=== PATIENT | female | born 1970 | race Caucasian/White ===

== ENCOUNTER 2022-10-19 11:15 | Inpatient (IN) | payer OTHER, SELFPAY ==
[2022-10-19] VITALS (8 sets, daily range): BP systolic 109–134; BP diastolic 54–73; PULSE 61–95; RESP 14–22; TEMP 36.6–37.1; O2SAT 91–100; BMI 24.0; BMI 23.3
--- NOTE | 2022-10-19 11:34 | ED.ABDPAIN1 ---
HPI - Abdominal Pain General Chief Complaint: Abdominal Pain Stated Complaint: NAUSEA/VOMITTING CHEST TIGHTNESS Time Seen by Provider: 10/19/22 11:34 Source: patient Mode of arrival: Wheelchair History of Present Illness HPI narrative: Patient presents to emergency department complaining of nausea, vomiting for 2 days. She states she is unable to keep anything down. She denies any hematemesis, melena, hematochezia. She states she had one loose stool yesterday. She complains of diffuse lower abdominal pain. She denies any vaginal bleeding, discharge. She denies any hematuria, dysuria. She states she was recently hospitalized with respiratory failure and had an appendectomy. She was ultimately diagnosed with diverticulitis. He denies any fever, or chills. She denies any cough, chest pain, shortness of breath. She does not have any antiemetics at home. She denies any dizziness, or headache. Related Data Home Medications Medication Instructions Recorded Confirmed apixaban 5 mg tablet (Eliquis) 5 mg PO Q12H 10/19/22 10/19/22 atorvastatin 40 mg tablet 40 mg PO .at night 10/19/22 10/19/22 citalopram 20 mg tablet 10 mg PO QDAY 10/19/22 10/19/22 furosemide 20 mg tablet 20 mg PO DAILY 10/19/22 10/19/22 losartan 100 1 tab PO DAILY 10/19/22 10/19/22 mg-hydrochlorothiazide 12.5 mg tablet methimazole 5 mg tablet 5 mg PO .COMPLEX 10/19/22 10/19/22 metoprolol tartrate 100 mg tablet 100 mg PO Q12H 10/19/22 10/19/22 metoprolol tartrate 25 mg tablet 25 mg PO Q12H 10/19/22 10/19/22 mirtazapine 15 mg tablet 15 mg PO .qhs PRN insomnia 10/19/22 10/19/22 potassium chloride 20 mEq 20 meq PO TID 10/19/22 10/19/22 tablet,extended release(part/cryst) (Klor-Con M) Allergies Allergy/AdvReac Type Severity Reaction Status Date / Time No Known Drug Allergies Allergy Verified 10/19/22 11:32 Review of Systems ROS Status of ROS 10 or more systems reviewed and unremarkable except as noted in history and below PFSH PFSH Medical History (Updated 10/19/22 @ 15:48 by Kerri Perez MD) Surgical History (Updated 10/19/22 @ 15:32 by Shelley Mejía, RN) Family History (Updated 10/19/22 @ 15:34 by Shelley Mejía RN) Father Family history of stroke Family history of myocardial infarction Family history of hypertension Mother Family history of hypertension Family history of diabetes mellitus Family history of cancer Family history of COPD (chronic obstructive pulmonary disease) Grandmother Family history of cancer Social History (Updated 10/19/22 @ 15:38 by Shelley Mejía RN) Within the past year, how often did you have a drink containing alcohol: monthly or less Within the past year, how many standard drinks containing alcohol did you have on a typical day: 1 or 2 Within the past year, how often did you have six or more drinks on one occasion: never Total score: 0 Score interpretation: A score less than 3 is consistent with normal alcohol consumption. Smoking status: Never smoker Second hand tobacco smoke exposure: Yes Non-prescribed substance use: cannabis (any form) Non-prescribed substance use details: PATIENT STATES SHE USED TO USE THC GUMMIES Previous occupational history: [employer] Known occupational exposures/hazards: No Highest level of school completed/degree received: GED or equivalent Are you now , , , , never or living with a partner: In a typical week, how many times do you talk on the telephone with family, friends, or neighbors: twice per week How often do you get together with friends or relatives: once per week How often do you attend catholic or druze services: never Do you belong to any clubs or organizations such as catholic groups unions, fraternal or athletic groups, or school groups: no Total score: 1 Score interpretation: A score of less than or equal to 1 indicates the most socially isolated. Little interest or pleasure in doing things: not at all Feeling down, depressed, or hopeless: not at all Feel stressed/tense/nervous/anxious/difficulty sleeping: very much Life stressors: financial matters Do you think of yourself as: straight/heterosexual Gender Identity: female Exam Narrative Exam Narrative: Nurses notes and vital signs reviewed and patient is not hypoxic. General: Nontoxic, Well-appearing and in no apparent distress. Skin: Warm, dry, no pallor noted. No Rash Head: Normocephalic, atraumatic. Neck: Supple, non-tender. Eye: Pupils are equal, round and EOMI. No scleral icterus. Ears, Nose, Mouth, and Throat: TM clear, no posterior oropharynx erythema or nasal mucosal hypertrophy, uvula is mid-line Oral mucosa is moist Cardiovascular: Regular Rate and Rhythm without murmur, gallop or rub. Respiratory: No accessory muscle use or respiratory distress. Lungs are clear to auscultation, no wheezing, rales or rhonchi Chest Wall: no tenderness Back: No midline thoracic or lumbar vertebral tenderness. No CVA tenderness Musculoskeletal: normal ROM, no calf or popliteal tenderness, no lower extremity edema/swelling GI: Abdomen is soft, non-distended. Normal bowel sounds. No masses appreciated. mild llq tenderness to palpation. No rebound, guarding, or rigidity noted. Neurological: A&O x4. No cranial nerve dysfunction observed. No truncal ataxia. Moves all extremities. Sensation intact. Psychiatric: Cooperative and interactive. Normal mood and affect. Constitutional Vital Signs - 24 hr 10/19/22 11:24 10/19/22 12:11 10/19/22 14:20 Temperature 98 F 98.7 F Pulse Rate Pulse Rate [Monitor] 75 63 Respiratory Rate 22 15 14 Blood Pressure [Left Arm] 134/73 H 109/54 L Pulse Oximetry 96 96 100 Oxygen Delivery Method Room Air Room Air Room Air 10/19/22 15:03 10/19/22 15:00 Temperature 98.3 F 98.7 F Pulse Rate 61 Pulse Rate [Monitor] 63 Respiratory Rate 18 14 Blood Pressure [Left Arm] 124/72 H 109/54 L Pulse Oximetry 97 100 Oxygen Delivery Method Room Air Room Air Course Vital Signs Vital signs: Vital Signs Temperature 98 F 10/19/22 11:24 Pulse Rate 75 10/19/22 11:24 Respiratory Rate 22 10/19/22 11:24 Blood Pressure 134/73 H 10/19/22 11:24 Pulse Oximetry 96 10/19/22 11:24 Oxygen Delivery Method Room Air 10/19/22 11:24 Temperature 98.0 F 10/20/22 06:02 Pulse Rate 95 H 10/19/22 20:00 Respiratory Rate 16 10/20/22 06:02 Blood Pressure 102/64 10/20/22 06:02 Pulse Oximetry 96 10/20/22 06:02 Oxygen Delivery Method Room Air 10/20/22 04:31 MDM - Abdominal Pain MDM Narrative Medical decision making narrative: Patient had IV established given a liter of fluids and 4 mg of Zofran IV. Labs studies were ordered. Awaiting CT scan abdomen and pelvis. This patient. Patient started on Zosyn. She will be arms since she hasn't lactic acidosis. She was discussed with Dr. Caro for admission. Differential Diagnosis Differential diagnosis: Likely abdominal pain, acute appendicitis, calculus of kidney, constipation and diverticulitis Medical Records Attestation: I reviewed the patient's medical records. Lab Data Attestation: I reviewed the patient's lab results. Labs: Lab Results 10/19/22 10/19/22 Range/Units 12:26 13:35 WBC 11.8 H (4.0-11.0) 10^3/uL RBC 5.97 H (4.20-5.40) 10^6/uL Hgb 14.8 (12.0-16.0) g/dL Hct 44.8 (36.0-48.0) % MCV 75.0 L (81.0-99.0) fL MCH 24.8 L (26.7-34.0) pg MCHC 33.0 (29.9-35.2) g/dL RDW 16.8 H (11.0-15.0) % Plt Count 806 H (150-450) 10^3/uL MPV 9.8 (9.5-13.5) fL Neut % (Auto) 74.2 (43.0-75.0) % Lymph % (Auto) 22.2 (20.5-60.0) % Robertson % (Auto) 2.8 (1.7-12.0) % Eos % (Auto) 0.2 L (0.9-7.0) % Baso % (Auto) 0.3 (0.2-2.0) % Neut # (Auto) 8.8 H (1.4-6.5) 10^3/uL Lymph # (Auto) 2.6 (1.2-3.8) 10^3/uL Robertson # (Auto) 0.3 (0.3-0.8) 10^3/uL Eos # (Auto) 0.0 (0.0-0.7) 10^3/uL Baso # (Auto) 0.0 (0.0-0.1) 10^3/uL Abs Immat Gran (auto) 0.04 H (0.00-0.03) 10^3/uL Imm/Tot Granulo (auto) 0.3 (0.0-0.5) % Sodium 130 L (136-145) mmol/L Potassium 5.2 H (3.5-5.1) mmol/L Chloride 96 L (98-107) mmol/L Carbon Dioxide 20.6 L (21.0-32.0) mmol/L Anion Gap 18.6 BUN 44.0 H (7.0-18.0) mg/dL Creatinine 1.32 H (0.55-1.02) mg/dL Est GFR ( Amer) 51 L (>=60) Est GFR (Non-Af Amer) 42 L (>=60) BUN/Creatinine Ratio 33.3 Glucose 161 H (74-106) mg/dL Lactate 2.7 H* (0.4-2.0) mmol/L Calcium 10.3 H (8.5-10.1) mg/dL Total Bilirubin 0.7 (0.2-1.0) mg/dL AST 14 L (15-37) U/L ALT 31 (14-59) U/L Alkaline Phosphatase 206 H (46-116) U/L Total Protein 8.5 H (6.4-8.2) g/dL Albumin 4.3 (3.4-5.0) g/dL Globulin 4.2 g/dL Albumin/Globulin Ratio 1.0 Lipase 448.0 H (73.0-393.0) U/L Urine Color Lt. yellow (YELLOW) Urine Clarity Clear (CLEAR) Urine pH 7.0 (5.0-9.0) Ur Specific [place] <=1.005 A (1.005-1.025) Urine Protein Negative (NEG/TRACE) mg/dL Urine Glucose (UA) Negative (NEGATIVE) mg/dL Urine Ketones Negative (NEGATIVE) mg/dL Urine Occult Blood Negative (NEGATIVE) Urine Nitrite Negative (NEGATIVE) Urine Bilirubin Negative (NEGATIVE) Urine Urobilinogen 0.2 (0.2-1.0) EU/dL Ur Leukocyte Esterase Negative (NEGATIVE) Imaging Data CT scan - abdomen: Radiologist's impression: Patient Name: MARINA MIRZA MRN: [id number] date: 1970 Sex: F Assigned Patient Location: ER Current Patient Location: Accession/Order Number: [id number] Exam Date: 10/19/2022 12:55 Report Date: 10/19/2022 13:37 At the request of: KERRI PEREZ Procedure: CT abdomen pelvis w con EXAMINATION: CT abdomen pelvis w con HISTORY: pain ; abdominal pain and nausea COMPARISON: CT abdomen pelvis 10/06/2022 TECHNIQUE: Axial, Coronal, and Sagittal images were obtained without and/or with IV contrast as indicated by examination type. Dose reduction techniques were achieved by using automated exposure control and/or adjustment of mA and/or kV according to patient size and/or use of iterative reconstruction technique. FINDINGS: LUNG BASES: No visible pulmonary or pleural disease. LIVER: No enlargement, atrophy, suspicious density, or significant focal lesion. BILIARY: No dilatation or calcification. PANCREAS: No lesion, fluid collection, or abnormal duct dilatation. SPLEEN: No enlargement or focal lesion. ADRENALS: No mass or enlargement. KIDNEYS: No mass, obstruction, or calcification. BOWEL/MESENTERY: Numerous diverticula throughout length of colon. Mild haziness adjacent the cecum. No free air or free fluid. Unremarkable small bowel and stomach. AORTA/VASCULAR: No aneurysm or dissection. RETROPERITONEUM: No mass or adenopathy. LYMPH NODES: No adenopathy. URINARY BLADDER: No visible focal wall thickening, lesion, or calculus. PELVIC ORGANS: No visible mass. Pelvic organs appropriate for patient age. ABDOMINAL WALL: No mass or hernia. BONES: No bony lesion or fracture. OTHER: Negative. IMPRESSION: 1.Suspect mild acute diverticulitis involving the cecum. There are numerous diverticula throughout the entire length of the colon. No obstruction. Electronically authenticated by: THADDEUS LO Date: 10/19/2022 13:37 Discharge Plan Discharge Chief Complaint: Abdominal Pain Clinical Impression: Diverticulitis, Nausea & vomiting Patient Disposition: Admitted as Observation Time of Disposition Decision: 14:30 Condition: Good Discharge Date/Time: 10/19/22 15:00
--- NOTE | 2022-10-19 12:17 | CT_ITS ---
[address] [address] Patient Name: MARINA MIRZA MRN: [id number] date: 1970 Sex: F Assigned Patient Location: ER Current Patient Location: ER Accession/Order Number: [id number] Exam Date: 10/19/2022 12:55 Report Date: 10/19/2022 13:37 At the request of: KERRI GALEANO Procedure: CT abdomen pelvis w con EXAMINATION: CT abdomen pelvis w con HISTORY: pain ; abdominal pain and nausea COMPARISON: CT abdomen pelvis 10/06/2022 TECHNIQUE: Axial, Coronal, and Sagittal images were obtained without and/or with IV contrast as indicated by examination type. Dose reduction techniques were achieved by using automated exposure control and/or adjustment of mA and/or kV according to patient size and/or use of iterative reconstruction technique. FINDINGS: LUNG BASES: No visible pulmonary or pleural disease. LIVER: No enlargement, atrophy, suspicious density, or significant focal lesion. BILIARY: No dilatation or calcification. PANCREAS: No lesion, fluid collection, or abnormal duct dilatation. SPLEEN: No enlargement or focal lesion. ADRENALS: No mass or enlargement. KIDNEYS: No mass, obstruction, or calcification. BOWEL/MESENTERY: Numerous diverticula throughout length of colon. Mild haziness adjacent the cecum. No free air or free fluid. Unremarkable small bowel and stomach. AORTA/VASCULAR: No aneurysm or dissection. RETROPERITONEUM: No mass or adenopathy. LYMPH NODES: No adenopathy. URINARY BLADDER: No visible focal wall thickening, lesion, or calculus. PELVIC ORGANS: No visible mass. Pelvic organs appropriate for patient age. ABDOMINAL WALL: No mass or hernia. BONES: No bony lesion or fracture. OTHER: Negative. IMPRESSION: 1.Suspect mild acute diverticulitis involving the cecum. There are numerous diverticula throughout the entire length of the colon. No obstruction. Electronically authenticated by: THADDEUS LO Date: 10/19/2022 13:37
[2022-10-19] MEDS: 0.9 % SODIUM CHLORIDE 1,000 ML 999 ML IV (12:34)
[2022-10-19] MEDS: ONDANSETRON PF 4 MG/2 ML VIAL IV (12:35)
[2022-10-19 12:51] LABS: Basophils Percent Auto 0.3 % (0.2-2.0); Eosinophils Percent Auto 0.2 % (0.9-7.0); Hematocrit 44.8 % (36.0-48.0); Hemoglobin 14.8 g/dL (12.0-16.0); Immature Granulocytes Abs Auto 0.04 10^3/uL (0.00-0.03); Immature Granulocytes Pct Auto 0.3 % (0.0-0.5); Lymphocytes Absolute Auto 2.6 10^3/uL (1.2-3.8); Lymphocytes Percent Auto 22.2 % (20.5-60.0); Mean Corpuscular Hemoglobin 24.8 pg (26.7-34.0); Mean Platelet Volume 9.8 fL (9.5-13.5); Monocytes Absolute Auto 0.3 10^3/uL (0.3-0.8); Monocytes Percent Auto 2.8 % (1.7-12.0); Neutrophils Absolute Auto 8.8 10^3/uL (1.4-6.5); Neutrophils Percent Auto 74.2 % (43.0-75.0); Platelet Count 806 10^3/uL (150-450); Red Blood Count 5.97 10^6/uL (4.20-5.40); Red Cell Distribution Width 16.8 % (11.0-15.0); White Blood Count 11.8 10^3/uL (4.0-11.0)
[2022-10-19 13:36] LABS: Lactate/Lactic Acid 2.7 mmol/L (0.4-2.0)
[2022-10-19 13:37] LABS: Sodium 130 mmol/L (136-145)
[2022-10-19 13:38] LABS: Anion Gap 18.6; BUN Creatinine Ratio 33.3; Carbon Dioxide 20.6 mmol/L (21.0-32.0); Chloride 96 mmol/L (98-107); Estimated GFR (African America 51 (>=60); Estimated GFR (Non-African Ame 42 (>=60); Glucose 161 mg/dL (74-106); Potassium 5.2 mmol/L (3.5-5.1)
[2022-10-19 13:39] LABS: Alanine Aminotransferase 31 U/L (14-59); Alkaline Phosphatase 206 U/L (46-116); Aspartate Amino Transferase 14 U/L (15-37); Bilirubin Total 0.7 mg/dL (0.2-1.0); Calcium 10.3 mg/dL (8.5-10.1)
[2022-10-19 13:40] LABS: Albumin Level 4.3 g/dL (3.4-5.0); Globulin 4.2 g/dL; Total Protein 8.5 g/dL (6.4-8.2)
[2022-10-19] MEDS: PIPERACILLIN SODIUM/TAZOBACTAM 4.5 GM in 0.9 % SODIUM CHLORIDE 50 ML IV (14:20)
[2022-10-19 14:29] LABS: Bilirubin Urine NEGATIVE (NEGATIVE); Blood Urine NEGATIVE (NEGATIVE); Clarity Urine CLEAR (CLEAR); Color Urine LT. YELLOW (YELLOW); Glucose Urine UA NEGATIVE (NEGATIVE); Ketones Urine NEGATIVE (NEGATIVE); Leukocyte Esterase Urine NEGATIVE (NEGATIVE); Nitrite Urine NEGATIVE (NEGATIVE); Protein Urine NEGATIVE (NEG/TRACE); Specific Gravity Urine <=1.005 (1.005-1.025); Urobilinogen Urine 0.2 EU/dL (0.2-1.0)
[2022-10-19 15:27] LABS: Urine Microscopic Indicated NO
[2022-10-19] MEDS: LACTATED RINGER'S SOLUTION 1,000 ML 125 ML IV (18:11)
[2022-10-19 18:16] LABS: Amylase 121 U/L (25-115)
[2022-10-19 18:17] LABS: Erythrocyte Sedimentation Rate 17 mm/hr (<=30)
[2022-10-19 18:18] LABS: Lactate/Lactic Acid 1.1 mmol/L (0.4-2.0)
[2022-10-19] MEDS: PANTOPRAZOLE SODIUM 40 MG VIAL IV (18:54)
[2022-10-19] MEDS: CIPROFLOXACIN IN 5 % DEXTROSE 400 MG/200 ML PIGGYBACK 100 MG IV (21:14)
[2022-10-19] MEDS: PIPERACILLIN SODIUM/TAZOBACTAM 3.375 GM in 0.9 % SODIUM CHLORIDE 50 ML IV (21:15)
[2022-10-20] VITALS (7 sets, daily range): BP systolic 96–128; BP diastolic 59–73; PULSE 68–109; RESP 14–18; TEMP 36.7–36.9; O2SAT 94–98; BMI 23.2
[2022-10-20] MEDS: LACTATED RINGER'S SOLUTION 1,000 ML 125 ML IV (03:50)
[2022-10-20 04:50] LABS: Basophils Percent Auto 0.3 % (0.2-2.0); Eosinophils Absolute Auto 0.1 10^3/uL (0.0-0.7); Eosinophils Percent Auto 1.1 % (0.9-7.0); Hematocrit 38.6 % (36.0-48.0); Hemoglobin 11.7 g/dL (12.0-16.0); Immature Granulocytes Abs Auto 0.04 10^3/uL (0.00-0.03); Immature Granulocytes Pct Auto 0.3 % (0.0-0.5); Lymphocytes Absolute Auto 3.1 10^3/uL (1.2-3.8); Lymphocytes Percent Auto 26.6 % (20.5-60.0); Mean Corpuscular HGB Conc 30.3 g/dL (29.9-35.2); Mean Corpuscular Volume 82.5 fL (81.0-99.0); Mean Platelet Volume 9.6 fL (9.5-13.5); Monocytes Absolute Auto 0.7 10^3/uL (0.3-0.8); Monocytes Percent Auto 5.5 % (1.7-12.0); Neutrophils Absolute Auto 7.8 10^3/uL (1.4-6.5); Neutrophils Percent Auto 66.2 % (43.0-75.0); Platelet Count 488 10^3/uL (150-450); Red Blood Count 4.68 10^6/uL (4.20-5.40); Red Cell Distribution Width 16.2 % (11.0-15.0); White Blood Count 11.7 10^3/uL (4.0-11.0)
[2022-10-20 05:10] LABS: Alanine Aminotransferase 24 U/L (14-59); Albumin Globulin Ratio 0.9; Albumin Level 3.2 g/dL (3.4-5.0); Alkaline Phosphatase 158 U/L (46-116); Amylase 94 U/L (25-115); Aspartate Amino Transferase 14 U/L (15-37); BUN Creatinine Ratio 16.3; Bilirubin Total 0.9 mg/dL (0.2-1.0); Calcium 8.9 mg/dL (8.5-10.1); Carbon Dioxide 26.2 mmol/L (21.0-32.0); Chloride 101 mmol/L (98-107); Estimated GFR (African America 52 (>=60); Estimated GFR (Non-African Ame 43 (>=60); Globulin 3.4 g/dL; Glucose 87 mg/dL (74-106); Potassium 3.2 mmol/L (3.5-5.1); Sodium 136 mmol/L (136-145); Total Protein 6.6 g/dL (6.4-8.2)
[2022-10-20] MEDS: PIPERACILLIN SODIUM/TAZOBACTAM 3.375 GM in 0.9 % SODIUM CHLORIDE 50 ML IV ×3 (05:19→23:05)
[2022-10-20 07:31] LABS: Erythrocyte Sedimentation Rate 15 mm/hr (<=30)
--- NOTE | 2022-10-20 09:04 | PM.HP ---
H&P: HPI History of Present Illness Chief complaint: NAUSEA/VOMITTING CHEST TIGHTNESS [facility] Medical History (Updated 10/19/22 @ 15:48 by Hanane Perez MD) Surgical History (Updated 10/19/22 @ 15:32 by Shelley Mejía RN) Family History (Updated 10/19/22 @ 15:34 by Shelley Mejía RN) Father Family history of stroke Family history of myocardial infarction Family history of hypertension Mother Family history of hypertension Family history of diabetes mellitus Family history of cancer Family history of COPD (chronic obstructive pulmonary disease) Grandmother Family history of cancer Social History (Updated 10/19/22 @ 15:38 by Shelley Mejía RN) Within the past year, how often did you have a drink containing alcohol: monthly or less Within the past year, how many standard drinks containing alcohol did you have on a typical day: 1 or 2 Within the past year, how often did you have six or more drinks on one occasion: never Total score: 0 Score interpretation: A score less than 3 is consistent with normal alcohol consumption. Smoking status: Never smoker Second hand tobacco smoke exposure: Yes Non-prescribed substance use: cannabis (any form) Non-prescribed substance use details: PATIENT STATES SHE USED TO USE THC GUMMIES Previous occupational history: [employer] Known occupational exposures/hazards: No Highest level of school completed/degree received: GED or equivalent Are you now , , , , never or living with a partner: In a typical week, how many times do you talk on the telephone with family, friends, or neighbors: twice per week How often do you get together with friends or relatives: once per week How often do you attend zoroastrianism or orthodoxy services: never Do you belong to any clubs or organizations such as zoroastrianism groups unions, fraternal or athletic groups, or school groups: no Total score: 1 Score interpretation: A score of less than or equal to 1 indicates the most socially isolated. Little interest or pleasure in doing things: not at all Feeling down, depressed, or hopeless: not at all Feel stressed/tense/nervous/anxious/difficulty sleeping: very much Life stressors: financial matters Do you think of yourself as: straight/heterosexual Gender Identity: female Meds Home Medications and Allergies Home Medications Medication Instructions Recorded Confirmed Type apixaban 5 mg tablet (Eliquis) 5 mg PO Q12H 10/19/22 10/19/22 History atorvastatin 40 mg tablet 40 mg PO .at night 10/19/22 10/19/22 History citalopram 20 mg tablet 10 mg PO QDAY 10/19/22 10/19/22 History furosemide 20 mg tablet 20 mg PO DAILY 10/19/22 10/19/22 History losartan 100 1 tab PO DAILY 10/19/22 10/19/22 History mg-hydrochlorothiazide 12.5 mg tablet methimazole 5 mg tablet 5 mg PO .COMPLEX 10/19/22 10/19/22 History metoprolol tartrate 100 mg tablet 100 mg PO Q12H 10/19/22 10/19/22 History metoprolol tartrate 25 mg tablet 25 mg PO Q12H 10/19/22 10/19/22 History mirtazapine 15 mg tablet 15 mg PO .qhs PRN insomnia 10/19/22 10/19/22 History potassium chloride 20 mEq 20 meq PO TID 10/19/22 10/19/22 History tablet,extended release(part/cryst) (Klor-Con M) Allergies Allergy/AdvReac Type Severity Reaction Status Date / Time No Known Drug Allergies Allergy Verified 10/19/22 11:32 Exam Constitutional Vital Signs - 24 hr 10/19/22 11:24 10/19/22 12:11 10/19/22 14:20 Temperature 98 F 98.7 F Pulse Rate Pulse Rate [Monitor] 75 63 Respiratory Rate 22 15 14 Blood Pressure [Left Arm] 134/73 H 109/54 L Pulse Oximetry 96 96 100 Oxygen Delivery Method Room Air Room Air Room Air 10/19/22 15:03 10/19/22 15:00 10/19/22 19:28 Temperature 98.3 F 98.7 F Pulse Rate 61 Pulse Rate [Monitor] 63 Respiratory Rate 18 14 Blood Pressure [Left Arm] 124/72 H 109/54 L Pulse Oximetry 97 100 98 Oxygen Delivery Method Room Air Room Air Room Air 10/19/22 20:00 10/19/22 20:46 10/20/22 04:31 Temperature 98.4 F 98.0 F Pulse Rate 95 H Pulse Rate [Monitor] Respiratory Rate 18 18 Blood Pressure [Left Arm] 121/69 H 109/57 L Pulse Oximetry 91 L 94 L Oxygen Delivery Method Room Air Room Air 10/20/22 06:02 Temperature 98.0 F Pulse Rate Pulse Rate [Monitor] Respiratory Rate 16 Blood Pressure [Left Arm] 102/64 Pulse Oximetry 96 Oxygen Delivery Method Results Labs Labs: Short CBC 10/19/22 10/20/22 Range/Units 12:26 04:01 WBC 11.8 H 11.7 H (4.0-11.0) 10^3/uL Hgb 14.8 11.7 L (12.0-16.0) g/dL Hct 44.8 38.6 (36.0-48.0) % Plt Count 806 H 488 H (150-450) 10^3/uL BMP 10/19/22 10/20/22 12:26 04:01 Sodium 130 L 136 Potassium 5.2 H 3.2 L Chloride 96 L 101 Carbon Dioxide 20.6 L 26.2 BUN 44.0 H 21.0 H Creatinine 1.32 H 1.29 H Glucose 161 H 87 Calcium 10.3 H 8.9 Liver Function 10/19/22 10/20/22 Range/Units 12:26 04:01 Total Bilirubin 0.7 0.9 (0.2-1.0) mg/dL AST 14 L 14 L (15-37) U/L ALT 31 24 (14-59) U/L Alkaline Phosphatase 206 H 158 H (46-116) U/L Albumin 4.3 3.2 L (3.4-5.0) g/dL Urine 10/19/22 Range/Units 13:35 Urine Color Lt. yellow (YELLOW) Urine Clarity Clear (CLEAR) Urine pH 7.0 (5.0-9.0) Ur Specific [place] <=1.005 A (1.005-1.025) Urine Protein Negative (NEG/TRACE) mg/dL Urine Glucose (UA) Negative (NEGATIVE) mg/dL
[2022-10-20] MEDS: APIXABAN 5 MG TABLET PO ×2 (09:38→21:54)
[2022-10-20] MEDS: CIPROFLOXACIN IN 5 % DEXTROSE 400 MG/200 ML PIGGYBACK 100 MG IV ×2 (09:38→21:49)
[2022-10-20] MEDS: METHIMAZOLE 5 MG TABLET PO (09:38)
--- NOTE | 2022-10-20 09:40 | CM.NOTE ---
Rounds made with Dr. Caro. No plan for discharge today. Shahida states she is independent at home with family living with her. No assistive devices used.
[2022-10-20 10:24] LABS: Basophils Percent Auto 0.2 % (0.2-2.0); Eosinophils Absolute Auto 0.1 10^3/uL (0.0-0.7); Eosinophils Percent Auto 0.8 % (0.9-7.0); Hematocrit 37.2 % (36.0-48.0); Hemoglobin 11.7 g/dL (12.0-16.0); Immature Granulocytes Abs Auto 0.04 10^3/uL (0.00-0.03); Immature Granulocytes Pct Auto 0.4 % (0.0-0.5); Lymphocytes Absolute Auto 1.4 10^3/uL (1.2-3.8); Lymphocytes Percent Auto 13.9 % (20.5-60.0); Mean Corpuscular HGB Conc 31.5 g/dL (29.9-35.2); Mean Corpuscular Hemoglobin 25.1 pg (26.7-34.0); Mean Corpuscular Volume 79.8 fL (81.0-99.0); Mean Platelet Volume 9.7 fL (9.5-13.5); Monocytes Absolute Auto 0.4 10^3/uL (0.3-0.8); Neutrophils Absolute Auto 7.9 10^3/uL (1.4-6.5); Neutrophils Percent Auto 80.7 % (43.0-75.0); Platelet Count 461 10^3/uL (150-450); Red Blood Count 4.66 10^6/uL (4.20-5.40); Red Cell Distribution Width 16.4 % (11.0-15.0); White Blood Count 9.7 10^3/uL (4.0-11.0)
[2022-10-20 10:32] LABS: BUN Creatinine Ratio 14.5; Calcium 8.9 mg/dL (8.5-10.1); Carbon Dioxide 23.7 mmol/L (21.0-32.0); Chloride 100 mmol/L (98-107); Estimated GFR (African America 55 (>=60); Estimated GFR (Non-African Ame 45 (>=60); Glucose 191 mg/dL (74-106); Potassium 3.7 mmol/L (3.5-5.1); Sodium 133 mmol/L (136-145)
--- NOTE | 2022-10-20 12:39 | DIETREC ---
Nutrition Recommendations: 1. Change to Low Fiber Diet. Reviewed with
[2022-10-20] MEDS: METOPROLOL TARTRATE 100 MG TABLET PO (15:00)
--- NOTE | 2022-10-20 17:43 | P.HP_ITS ---
H&P: HPI History of Present Illness Chief complaint: NAUSEA/VOMITTING CHEST TIGHTNESS Narrative: Patient tented to the emergency with increasing nausea vomiting. CT scan done showed acute cecal diverticulitis, with leukocytosis she is admitted for IV therapy. She had a recent appendectomy as well. That was approximately 2 months ago. [facility] Medical History (Updated 10/19/22 @ 15:48 by Hanane Perez MD) Surgical History (Updated 10/19/22 @ 15:32 by Shelley Mejía RN) Family History (Updated 10/19/22 @ 15:34 by Shelley Mejía RN) Father Family history of stroke Family history of myocardial infarction Family history of hypertension Mother Family history of hypertension Family history of diabetes mellitus Family history of cancer Family history of COPD (chronic obstructive pulmonary disease) Grandmother Family history of cancer Social History (Updated 10/19/22 @ 15:38 by Shelley Mejía RN) Within the past year, how often did you have a drink containing alcohol: monthly or less Within the past year, how many standard drinks containing alcohol did you have on a typical day: 1 or 2 Within the past year, how often did you have six or more drinks on one occasion: never Total score: 0 Score interpretation: A score less than 3 is consistent with normal alcohol consumption. Smoking status: Never smoker Second hand tobacco smoke exposure: Yes Non-prescribed substance use: cannabis (any form) Non-prescribed substance use details: PATIENT STATES SHE USED TO USE THC GUMMIES Previous occupational history: [employer] Known occupational exposures/hazards: No Highest level of school completed/degree received: GED or equivalent Are you now , , , , never or living with a partner: In a typical week, how many times do you talk on the telephone with family, friends, or neighbors: twice per week How often do you get together with friends or relatives: once per week How often do you attend congregation or mormon services: never Do you belong to any clubs or organizations such as congregation groups unions, fraternal or athletic groups, or school groups: no Total score: 1 Score interpretation: A score of less than or equal to 1 indicates the most socially isolated. Little interest or pleasure in doing things: not at all Feeling down, depressed, or hopeless: not at all Feel stressed/tense/nervous/anxious/difficulty sleeping: very much Life stressors: financial matters Do you think of yourself as: straight/heterosexual Gender Identity: female Meds Home Medications and Allergies Home Medications Medication Instructions Recorded Confirmed Type apixaban 5 mg tablet (Eliquis) 5 mg PO Q12H 10/19/22 10/19/22 History atorvastatin 40 mg tablet 40 mg PO .at night 10/19/22 10/19/22 History citalopram 20 mg tablet 10 mg PO QDAY 10/19/22 10/19/22 History furosemide 20 mg tablet 20 mg PO DAILY 10/19/22 10/19/22 History losartan 100 1 tab PO DAILY 10/19/22 10/19/22 History mg-hydrochlorothiazide 12.5 mg tablet methimazole 5 mg tablet 5 mg PO .COMPLEX 10/19/22 10/19/22 History metoprolol tartrate 100 mg tablet 100 mg PO Q12H 10/19/22 10/19/22 History metoprolol tartrate 25 mg tablet 25 mg PO Q12H 10/19/22 10/19/22 History mirtazapine 15 mg tablet 15 mg PO .qhs PRN insomnia 10/19/22 10/19/22 History potassium chloride 20 mEq 20 meq PO TID 10/19/22 10/19/22 History tablet,extended release(part/cryst) (Klor-Con M) Allergies Allergy/AdvReac Type Severity Reaction Status Date / Time No Known Drug Allergies Allergy Verified 10/19/22 11:32 Exam Constitutional Vital Signs - 24 hr 10/19/22 19:28 10/19/22 20:00 10/19/22 20:46 Temperature 98.4 F 98.0 F Pulse Rate 95 H Respiratory Rate 18 18 Blood Pressure [Left Arm] 121/69 H 109/57 L Pulse Oximetry 98 91 L Oxygen Delivery Method Room Air Room Air 10/20/22 04:31 10/20/22 06:02 10/20/22 11:32 Temperature 98.0 F 98.3 F Pulse Rate 109 H Respiratory Rate 16 18 Blood Pressure [Left Arm] 102/64 96/59 L Pulse Oximetry 94 L 96 98 Oxygen Delivery Method Room Air Room Air 10/20/22 12:10 10/20/22 14:55 Temperature 98.3 F Pulse Rate 103 H Respiratory Rate 16 Blood Pressure [Left Arm] 115/70 Pulse Oximetry 97 98 Oxygen Delivery Method Room Air Room Air Chest Common normals: inspection of chest normal Respiratory Common normals: normal respiratory effort, no retractions and no use of accessory muscles Cardio Common normals: no JVD, regular rate and regular rhythm GI Common normals: soft to palpation; tender Palpation: tender (Tender right lower quadrant, possible mild rebound tenderness, no pain in r) Details: RLQ (No pain in the right lower quadrant with palpation of left lower quadrant) Results Labs Labs: Short CBC 10/20/22 10/20/22 Range/Units 04:01 09:55 WBC 11.7 H 9.7 (4.0-11.0) 10^3/uL Hgb 11.7 L 11.7 L (12.0-16.0) g/dL Hct 38.6 37.2 (36.0-48.0) % Plt Count 488 H 461 H (150-450) 10^3/uL BMP 10/20/22 10/20/22 04:01 09:55 Sodium 136 133 L Potassium 3.2 L 3.7 Chloride 101 100 Carbon Dioxide 26.2 23.7 BUN 21.0 H 18.0 Creatinine 1.29 H 1.24 H Glucose 87 191 H Calcium 8.9 8.9 Liver Function 10/20/22 Range/Units 04:01 Total Bilirubin 0.9 (0.2-1.0) mg/dL AST 14 L (15-37) U/L ALT 24 (14-59) U/L Alkaline Phosphatase 158 H (46-116) U/L Albumin 3.2 L (3.4-5.0) g/dL Assessment and Plan Assessment and Plan (1) Diverticulitis: (2) Nausea & vomiting: Plan Sinus tachycardia, leukocytosis, thrombocythemia, hyponatremia, acute kidney injury, elevated amylase and lipase secondary to acute cecal diverticulitis with dehydration-IV fluids, IV antibiotics, hold off on surgical evaluation at this time as patient does feel she is quite a bit better. We will advance diet today. Thrombocythemia likely secondary to the above-overall improved today Hypokalemia-supplement Mild acute pancreatitis likely secondary to the above-levels are normal today. History of CHF in the past-need to watch fluid status closely Hypertension-continue with home medications Hyperthyroidism-continue with home medications With significant findings of acute abdomen-patient needs further IV antibiotics, leukocytosis also persisting, patient needs inpatient statusFor medical treatment lasting more than 2 days
[2022-10-20] MEDS: PANTOPRAZOLE SODIUM 40 MG VIAL IV (18:31)
[2022-10-20] MEDS: POTASSIUM CHLORIDE 10 MEQ ER TABLET 20 MEQ PO (21:53)
[2022-10-21 04:57] LABS: Basophils Percent Auto 0.2 % (0.2-2.0); Eosinophils Absolute Auto 0.1 10^3/uL (0.0-0.7); Eosinophils Percent Auto 1.6 % (0.9-7.0); Hematocrit 37.7 % (36.0-48.0); Hemoglobin 11.7 g/dL (12.0-16.0); Immature Granulocytes Abs Auto 0.02 10^3/uL (0.00-0.03); Immature Granulocytes Pct Auto 0.2 % (0.0-0.5); Lymphocytes Absolute Auto 2.2 10^3/uL (1.2-3.8); Lymphocytes Percent Auto 25.5 % (20.5-60.0); Mean Corpuscular Hemoglobin 25.1 pg (26.7-34.0); Mean Corpuscular Volume 80.9 fL (81.0-99.0); Mean Platelet Volume 10.3 fL (9.5-13.5); Monocytes Absolute Auto 0.7 10^3/uL (0.3-0.8); Monocytes Percent Auto 8.2 % (1.7-12.0); Neutrophils Absolute Auto 5.6 10^3/uL (1.4-6.5); Neutrophils Percent Auto 64.3 % (43.0-75.0); Platelet Count 450 10^3/uL (150-450); Red Blood Count 4.66 10^6/uL (4.20-5.40); Red Cell Distribution Width 16.4 % (11.0-15.0); White Blood Count 8.7 10^3/uL (4.0-11.0)
[2022-10-21 05:25] LABS: Alanine Aminotransferase 24 U/L (14-59); Albumin Globulin Ratio 0.9; Albumin Level 3.2 g/dL (3.4-5.0); Alkaline Phosphatase 147 U/L (46-116); Amylase 107 U/L (25-115); Aspartate Amino Transferase 17 U/L (15-37); BUN Creatinine Ratio 20.6; Bilirubin Total 0.3 mg/dL (0.2-1.0); Calcium 9.1 mg/dL (8.5-10.1); Carbon Dioxide 24.9 mmol/L (21.0-32.0); Chloride 103 mmol/L (98-107); Erythrocyte Sedimentation Rate 27 mm/hr (<=30); Estimated GFR (African America >60 (>=60); Estimated GFR (Non-African Ame 57 (>=60); Globulin 3.5 g/dL; Glucose 165 mg/dL (74-106); Potassium 3.9 mmol/L (3.5-5.1); Sodium 137 mmol/L (136-145); Total Protein 6.7 g/dL (6.4-8.2)
[2022-10-21 06:00] VITALS: BP 136/77; PULSE 82; RESP 18; TEMP 36.7; O2SAT 98
--- NOTE | 2022-10-21 06:15 | US_ITS ---
[address] [address] Patient Name: MARINA MIRZA MRN: [id number] date: 1970 Sex: F Assigned Patient Location: Current Patient Location: Accession/Order Number: [id number] Exam Date: 10/21/2022 07:50 Report Date: 10/21/2022 09:31 At the request of: ANDREINA VANESSA Procedure: US right upper quadrant PROCEDURE: US right upper quadrant, 10/21/2022 7:50 AM EDT CLINICAL INDICATIONS: Pancreatitis, right upper quadrant abdominal pain, diverticulitis, elevated lipase, prior appendectomy, vomiting COMPARISON: CT abdomen and pelvis 10/19/2022 TECHNIQUE: Right quadrant abdominal sonogram FINDINGS: Slight heterogeneous echo pattern of the pancreas is seen. Ductal dilatation is not evident. Peripancreatic fluid collection is not seen. Portions of head and tail segments are obscured. Hepatic assessment is limited given necessity for intercostal imaging. Liver is normal in size. Visualized portal vein patent with antegrade flow. Normal velocity 40 cm/s. Common bile duct 0.3 cm. The gallbladder is normal in size. Gallbladder calculus, wall thickening, or pain in the region is not elicited. Right kidney is normal in morphology. It measures 9.4 x 4.3 x 4.6 cm. No hydronephrosis or shadowing calculus is identified. Focal renal abnormality is not demonstrated. No free fluid. IMPRESSION: 1. Nonspecific heterogeneity of the pancreas. No ductal dilatation or focal abnormality is evident. Portions of head and tail segments obscured. There is no sign of complicated pancreatitis. CT would be more accurate in further characterization. 2. No gallbladder pathology or bile duct dilatation 3. No additional right upper quadrant abdominal pathology Electronically authenticated by: EMILE LYMAN Date: 10/21/2022 09:31
[2022-10-21] MEDS: PIPERACILLIN SODIUM/TAZOBACTAM 3.375 GM in 0.9 % SODIUM CHLORIDE 50 ML IV ×3 (06:55→22:09)
[2022-10-21] MEDS: POTASSIUM CHLORIDE 10 MEQ ER TABLET 20 MEQ PO ×3 (06:56→21:07)
[2022-10-21 07:40] VITALS: BP 112/63; PULSE 76; RESP 16; TEMP 36.5; O2SAT 97
[2022-10-21] MEDS: METHIMAZOLE 5 MG TABLET PO (08:31)
[2022-10-21] MEDS: APIXABAN 5 MG TABLET PO ×2 (08:31→20:50)
[2022-10-21] MEDS: CITALOPRAM HYDROBROMIDE 20 MG TABLET 10 MG PO (08:31)
[2022-10-21] MEDS: METOPROLOL TARTRATE 100 MG TABLET PO ×2 (08:33→18:00)
--- NOTE | 2022-10-21 09:14 | P.PN_ITS ---
Progress Note: Subjective Subjective Interval history: Patient still with some abdominal pain Exam Constitutional Vital Signs - 24 hr 10/20/22 11:32 10/20/22 12:10 10/20/22 14:55 Temperature 98.3 F 98.3 F Pulse Rate 109 H 103 H Respiratory Rate 18 16 Blood Pressure [Left Arm] 96/59 L 115/70 Pulse Oximetry 98 97 98 Oxygen Delivery Method Room Air Room Air Room Air 10/20/22 21:56 10/20/22 21:00 10/21/22 06:00 Temperature 98.4 F 98.1 F Pulse Rate 68 82 Respiratory Rate 18 14 18 Blood Pressure [Left Arm] 128/73 H 136/77 H Pulse Oximetry 96 98 Oxygen Delivery Method Room Air Room Air 10/21/22 07:40 Temperature 97.7 F Pulse Rate 76 Respiratory Rate 16 Blood Pressure [Left Arm] 112/63 Pulse Oximetry 97 Oxygen Delivery Method Room Air Neck & C-Spine Common normals: no JVD Chest Common normals: inspection of chest normal Respiratory Common normals: normal respiratory effort, no retractions and no use of accessory muscles Cardio Common normals: no JVD, regular rate and regular rhythm Rate: regular rate Rhythm: regular rhythm GI Common normals: soft to palpation; tender Palpation: soft, tender (Tender right lower quadrant, possible mild rebound tenderness, no pain in r) Details: RLQ (No pain in the right lower quadrant with palpation of left lower quadrant) and rebound tenderness present Progress Note: Objective Labs Labs: Short CBC 10/20/22 10/21/22 Range/Units 09:55 03:45 WBC 9.7 8.7 (4.0-11.0) 10^3/uL Hgb 11.7 L 11.7 L (12.0-16.0) g/dL Hct 37.2 37.7 (36.0-48.0) % Plt Count 461 H 450 (150-450) 10^3/uL BMP 10/20/22 10/21/22 09:55 03:45 Sodium 133 L 137 Potassium 3.7 3.9 Chloride 100 103 Carbon Dioxide 23.7 24.9 BUN 18.0 21.0 H Creatinine 1.24 H 1.02 Glucose 191 H 165 H Calcium 8.9 9.1 Liver Function 10/21/22 Range/Units 03:45 Total Bilirubin 0.3 (0.2-1.0) mg/dL AST 17 (15-37) U/L ALT 24 (14-59) U/L Alkaline Phosphatase 147 H (46-116) U/L Albumin 3.2 L (3.4-5.0) g/dL Progress Note: A&P Assessment and Plan (1) Diverticulitis: (2) Nausea & vomiting: Plan Sinus tachycardia, leukocytosis, thrombocythemia, hyponatremia, acute kidney injury, elevated amylase and lipase secondary to acute cecal diverticulitis with dehydration-IV fluids, IV antibiotics, with abdominal pain persisting we will check CT scan Thrombocythemia likely secondary to the above-overall improved today Hypokalemia-supplement Mild acute pancreatitis likely secondary to the above-levels are elevated today-check an ultrasound History of CHF in the past-need to watch fluid status closely all Hypertension-continue with home medications Hyperthyroidism-continue with home medications With significant findings of acute abdomen-patient needs further IV antibiotics, leukocytosis also persisting, patient needs inpatient statusFor medical treatment lasting more than 2 days
--- NOTE | 2022-10-21 09:16 | CT_ITS ---
[address] [address] Patient Name: MARINA MIRZA MRN: [id number] date: 1970 Sex: F Assigned Patient Location: [place] Current Patient Location: [place] Accession/Order Number: [id number] Exam Date: 10/21/2022 10:55 Report Date: 10/21/2022 11:36 At the request of: ANDREINA VANESSA Procedure: CT abdomen pelvis w con EXAM: CT abdomen pelvis w con HISTORY: diverticulitis pancreatitis. Nausea, vomiting for 6 days. COMPARISON: 10/19/2022. TECHNIQUE: Axial CT imaging was performed through the abdomen and pelvis with intravenous contrast. Multiplanar reformats were performed. Dose reduction techniques were achieved by using automated exposure control and/or adjustment of mA and/or kV according to patient size and/or use of iterative reconstruction technique. FINDINGS: Lung bases: Lung bases are clear. No pleural effusion. GI upper: Several small duodenal diverticula. Liver: Hepatic steatosis. Normal size and contour. Gallbladder: No significant abnormality. No cholelithiasis. Biliary system: Prominence of the extra hepatic biliary duct. Consider correlation with cholestatic laboratory values as clinically appropriate. Spleen: Normal size. Pancreas: Unremarkable. Adrenal glands: Normal adrenal glands. Kidneys/ureters: Normal contours. No hydronephrosis or ureterolithiasis. No nephrolithiasis. Vessels: No aneurysm. Lymph Nodes: No lymphadenopathy. Small bowel: No wall thickening or dilatation. There is diverticulosis of the distal ileum. Colon: Significant diverticulosis of the colon. There are colonic diverticula of the proximal colon with associated wall thickening and mild stranding of the right lower quadrant, extending into the paracolic gutter, new since 10/19/2022 examination. Enteric contrast which appears fluid consistency is demonstrated throughout the colon. Appendix: Appendectomy. Peritoneal cavity: No free fluid or peritoneum. Lower : Unremarkable. Bones: Degenerative findings without acute bony abnormality. Findings are suggestive of decreased bone density. Soft tissues: No acute finding. Additional findings: None. IMPRESSION: 1. Interval development of inflammation of the right lower quadrant. There is suspected wall thickening associated with several colonic diverticula near the cecum, suspicious for diverticulitis. No evidence of organized fluid collection or pneumoperitoneum. 2. Additional findings as above. Electronically authenticated by: MYCHAL Gomez: 10/21/2022 11:36
--- NOTE | 2022-10-21 10:06 | CM.NOTE ---
Rounds made with Dr. Caro. Checking an Ultrasound of abdomen and potentially a CT abdomen. Shahida verbalizes understanding. No questions offered.
[2022-10-21] MEDS: CIPROFLOXACIN IN 5 % DEXTROSE 400 MG/200 ML PIGGYBACK 200 MG IV (11:31)
[2022-10-21 14:46] VITALS: BP 96/60; PULSE 76; RESP 16; TEMP 36.6; O2SAT 69
[2022-10-21] MEDS: PANTOPRAZOLE SODIUM 40 MG VIAL IV (18:00)
[2022-10-21] MEDS: CIPROFLOXACIN IN 5 % DEXTROSE 400 MG/200 ML PIGGYBACK 50 MG IV (20:50)
[2022-10-21] MEDS: ATORVASTATIN CALCIUM 40 MG TABLET PO (20:50)
[2022-10-21 21:40] VITALS: BP 111/70; PULSE 62; RESP 20; TEMP 36.6; O2SAT 98
[2022-10-21] MEDS: 0.9 % SODIUM CHLORIDE 250 ML 20 ML IV (22:09)
[2022-10-22 06:00] VITALS: BP 152/76; PULSE 63; RESP 22; TEMP 36.6; O2SAT 97
[2022-10-22 06:20] LABS: Basophils Percent Auto 0.4 % (0.2-2.0); Eosinophils Absolute Auto 0.2 10^3/uL (0.0-0.7); Eosinophils Percent Auto 2.3 % (0.9-7.0); Hematocrit 38.7 % (36.0-48.0); Hemoglobin 11.5 g/dL (12.0-16.0); Immature Granulocytes Abs Auto 0.03 10^3/uL (0.00-0.03); Immature Granulocytes Pct Auto 0.4 % (0.0-0.5); Lymphocytes Absolute Auto 2.3 10^3/uL (1.2-3.8); Lymphocytes Percent Auto 27.6 % (20.5-60.0); Mean Corpuscular HGB Conc 29.7 g/dL (29.9-35.2); Mean Corpuscular Hemoglobin 24.8 pg (26.7-34.0); Mean Corpuscular Volume 83.6 fL (81.0-99.0); Mean Platelet Volume 10.1 fL (9.5-13.5); Monocytes Absolute Auto 0.7 10^3/uL (0.3-0.8); Monocytes Percent Auto 8.7 % (1.7-12.0); Neutrophils Absolute Auto 5.1 10^3/uL (1.4-6.5); Neutrophils Percent Auto 60.6 % (43.0-75.0); Platelet Count 389 10^3/uL (150-450); Red Blood Count 4.63 10^6/uL (4.20-5.40); Red Cell Distribution Width 16.7 % (11.0-15.0); White Blood Count 8.4 10^3/uL (4.0-11.0)
[2022-10-22] MEDS: PIPERACILLIN SODIUM/TAZOBACTAM 3.375 GM in 0.9 % SODIUM CHLORIDE 50 ML IV (06:33)
[2022-10-22] MEDS: POTASSIUM CHLORIDE 10 MEQ ER TABLET 20 MEQ PO (06:37)
[2022-10-22 06:51] LABS: Alanine Aminotransferase 24 U/L (14-59); Albumin Globulin Ratio 0.8; Albumin Level 3.3 g/dL (3.4-5.0); Alkaline Phosphatase 137 U/L (46-116); Amylase 105 U/L (25-115); Anion Gap 6.2; Aspartate Amino Transferase 26 U/L (15-37); Bilirubin Total 0.3 mg/dL (0.2-1.0); Calcium 9.5 mg/dL (8.5-10.1); Carbon Dioxide 19.5 mmol/L (21.0-32.0); Chloride 114 mmol/L (98-107); Estimated GFR (African America >60 (>=60); Estimated GFR (Non-African Ame >60 (>=60); Glucose 96 mg/dL (74-106); Potassium 4.7 mmol/L (3.5-5.1); Sodium 135 mmol/L (136-145); Total Protein 7.3 g/dL (6.4-8.2)
[2022-10-22 06:59] LABS: Erythrocyte Sedimentation Rate 37 mm/hr (<=30)
[2022-10-22] MEDS: APIXABAN 5 MG TABLET PO (10:13)
[2022-10-22] MEDS: CITALOPRAM HYDROBROMIDE 20 MG TABLET 10 MG PO (10:13)
[2022-10-22] MEDS: METOPROLOL TARTRATE 100 MG TABLET PO (10:13)
[2022-10-22] MEDS: METHIMAZOLE 5 MG TABLET PO (10:15)
[2022-10-22] MEDS: CIPROFLOXACIN IN 5 % DEXTROSE 400 MG/200 ML PIGGYBACK 200 MG IV (10:15)
[2022-10-22 10:18] VITALS: BP 121/75; PULSE 89
--- NOTE | 2022-10-22 12:27 | PM.DS1 ---
DS: Providers Provider Date of admission: 10/20/22 10:20 Primary care physician: DIVYA ACOSTA MD Attending physician on discharge: Shaikh David Discharging clinician: Shaikh David Anticipated date of discharge: 10/22/22 DS: Diagnosis Discharge Diagnosis (1) Acute diverticulitis: Onset Date: ~10/2022 Assessment and plan: Clinically impproving. Mild abdominal pain. Tolerating oral diet. No nausea or vomiting. Will discharge on Oral Levaquin and Flagyl (2) Pancreatitis, acute: Assessment and plan: Mildly elevated Lipase. Trending down. No epigastric pain, and denies nausea/vomiting. US liver negative for gallstones, CBD dilation. Non alcoholic. Needs repeat Lipase in one week (3) Acute kidney injury: Assessment and plan: Due to pancreatitis. Resolved. DS: Summary Hospital Course Hospital Course: Patient admitted for acute diverticulitis and started on IV fluids, IV ciprofloxacin and flagyl. Her symptoms improved during her hospital stay and she was reporting mild abdominal discomfort today and denies nausea/vomiting or is tolerating oral diet w/o complaints. She was also noted to have mildly elevate Lipase. CT abd showed no concern for pancreatitis. US liver shows no gall bladder. Will need repeat CMP and Lipase in one week with PCP Status at Discharge Functional status at discharge: independent ambulation Overall status at discharge: patient is back to baseline Time Spent with Patient Time attestation: Total time spent providing and/or coordinating discharge services: Time spent: greater than 30 minutes Exam Constitutional Vital Signs - 24 hr 10/21/22 14:46 10/21/22 21:40 10/22/22 06:00 Temperature 97.9 F 98 F 97.8 F Pulse Rate 76 62 63 Respiratory Rate 16 20 22 Blood Pressure [Left Arm] 96/60 111/70 152/76 H Pulse Oximetry 69 L 98 97 Oxygen Delivery Method Room Air Room Air Room Air 10/22/22 10:18 Temperature Pulse Rate 89 Respiratory Rate Blood Pressure [Left Arm] 121/75 H Pulse Oximetry Oxygen Delivery Method Documenting provider has reviewed patient's vital signs: yes Common normals: no apparent distress, oriented x3, no limitations and healthy appearing Exam limitations: altered mental status General appearance: cooperative and well kempt Nutritional appearance: thin Orientation/consciousness: Yes awake, Yes oriented to person, Yes oriented to place and Yes oriented to time HENMT Common normals: normocephalic and head/scalp atraumatic Eye Common normals: PERRL, conjunctivae normal and no scleral icterus Neck & C-Spine Common normals: full ROM Respiratory Common normals: normal respiratory effort Effort & inspection: able to speak in complete sentences Auscultation: clear to auscultation bilaterally Cardio Common normals: no JVD, regular rate, regular rhythm, S1 normal heart sound, S2 normal heart sound and no murmurs GI Common normals: Normal to inspection, nondistended, normoactive bowel sounds present, soft to palpation and no hepatosplenomegaly Palpation: soft Rectal Exam - Female: deferred Common normals: no CVA tenderness Extremity Common normals: normal to inspection and full ROM Neuro Common normals: oriented x3, moves all extremities, no focal motor deficits and no sensory deficits noted Sensorium/orientation: awake, oriented to person, oriented to place and oriented to time Speech: speech normal Gait (neuro): normal gait Psych Common normals: thought process normal, cooperative, affect normal, speech normal, denies homicidal ideation and denies suicidal ideation DS: Data Data Completed and Pending Labs on day of discharge: Labs from last 24 hours 10/22/22 04:15 WBC 8.4 RBC 4.63 Hgb 11.5 L Hct 38.7 MCV 83.6 MCH 24.8 L MCHC 29.7 L RDW 16.7 H Plt Count 389 MPV 10.1 Neut % (Auto) 60.6 Lymph % (Auto) 27.6 [place] % (Auto) 8.7 Eos % (Auto) 2.3 Baso % (Auto) 0.4 Neut # (Auto) 5.1 Lymph # (Auto) 2.3 [place] # (Auto) 0.7 Eos # (Auto) 0.2 Baso # (Auto) 0.0 Abs Immat Gran (auto) 0.03 Imm/Tot Granulo (auto) 0.4 ESR 37 H Sodium 135 L Potassium 4.7 Chloride 114 H Carbon Dioxide 19.5 L Anion Gap 6.2 BUN 16.0 Creatinine 0.89 Est GFR ( Amer) >60 Est GFR (Non-Af Amer) >60 BUN/Creatinine Ratio 18.0 Glucose 96 Calcium 9.5 Total Bilirubin 0.3 AST 26 ALT 24 Alkaline Phosphatase 137 H Total Protein 7.3 Albumin 3.3 L Globulin 4.0 Albumin/Globulin Ratio 0.8 Amylase [address] scan - abdomen: Attestation: I have reviewed the pertinent imaging results. US - abdomen: Attestation: I have reviewed the pertinent imaging results. Discharge Plan Discharge Disposition: Home, Self-Care Condition: Good Plan of Treatment: Follow up with PCP in one week, Finish antibiotics Repeat Lipase and CMP in one week Discharge Medications: New levofloxacin 750 mg Tablet 750 mg PO QD 5 Days Qty: 5 0RF ondansetron 4 mg Tablet,Disintegrating 4 mg sublingual Q6H PRN (Reason: nausea and vomiting) Qty: 10 0RF metronidazole 500 mg tablet 500 mg PO Q8H 5 Days Qty: 15 0RF Continued Eliquis 5 mg tablet 5 mg PO Q12H atorvastatin 40 mg tablet 40 mg PO .at night furosemide 20 mg tablet 20 mg PO DAILY potassium chloride [Klor-Con M20] 20 mEq tablet,ER particles/crystals 20 meq PO TID metoprolol tartrate 100 mg tablet 100 mg PO Q12H metoprolol tartrate 25 mg tablet 25 mg PO Q12H citalopram 20 mg tablet 10 mg PO QDAY methimazole 5 mg tablet 5 mg PO .COMPLEX Rx Instructions: 5 mg orally every day except monday and monday; mirtazapine 15 mg tablet 15 mg PO .qhs PRN (Reason: insomnia) losartan-hydrochlorothiazide 100-12.5 mg tablet 1 tab PO DAILY Activity: resume usual activities as tolerated Diet: other Diet Detail: Soft, low fat Forms: Portal Instructions Referrals: DIVYA ACOSTA MD [Primary Care Provider] - 1 week Follow Up Appointments: PCP in one week Discharge location: Home
== END 2022-10-22 13:04 | disposition home or self-care (01) | DRG 244 ==
LOC: ER 11:26 → MS 15:29
PROVIDERS: Admitting Provider Family Medicine; Emergency Provider Emergency Medicine; PCP Nurse Practitioner Primary Care; Visit Provider Internal Medicine
DX: K57.32 Diverticulitis of large intestine without perforation or abscess without bleeding (principal); E86.0 Dehydration; E87.1 Hypo-osmolality and hyponatremia; K85.90 Acute pancreatitis without necrosis or infection, unspecified; I11.0 Hypertensive heart disease with heart failure; I50.9 Heart failure, unspecified; E05.90 Thyrotoxicosis, unspecified without thyrotoxic crisis or storm; D75.839 Thrombocytosis, unspecified; E87.6 Hypokalemia; N17.9 Acute kidney failure, unspecified; Z79.899 Other long term (current) drug therapy; Z79.01 Long term (current) use of anticoagulants; Z77.22 Contact with and (suspected) exposure to environmental tobacco smoke (acute) (chronic); Z90.49 Acquired absence of other specified parts of digestive tract; Z82.49 Family history of ischemic heart disease and other diseases of the circulatory system; Z83.3 Family history of diabetes mellitus; Z82.5 Family history of asthma and other chronic lower respiratory diseases; Z80.9 Family history of malignant neoplasm, unspecified
CPT/HCPCS: 36415; 74177; 76705; 80048; 80053; 81003; 82150; 83605; 83690; 85025; 85652; 94761; 96361; 96365; 96366; 96367; 96375; 96376; 99285; G0328; G0378; Q9966; Q9967

== ENCOUNTER 2022-10-25 11:02 | Outpatient (OUT) | payer OTHER, SELFPAY ==
[2022-10-25 12:12] LABS: Alanine Aminotransferase 24 U/L (14-59); Albumin Globulin Ratio 0.9; Albumin Level 3.6 g/dL (3.4-5.0); Alkaline Phosphatase 143 U/L (46-116); Anion Gap 12.7; Aspartate Amino Transferase 21 U/L (15-37); BUN Creatinine Ratio 23.9; Bilirubin Total 0.3 mg/dL (0.2-1.0); Calcium 9.7 mg/dL (8.5-10.1); Chloride 103 mmol/L (98-107); Estimated GFR (African America 59 (>=60); Estimated GFR (Non-African Ame 48 (>=60); Globulin 4.2 g/dL; Glucose 140 mg/dL (74-106); Potassium 3.7 mmol/L (3.5-5.1); Sodium 140 mmol/L (136-145); Total Protein 7.8 g/dL (6.4-8.2)
[2022-10-25 17:05] LABS: Magnesium 1.6 mg/dL (1.8-2.4)
== END 2022-10-25 11:03 ==
PROVIDERS: PCP Nurse Practitioner Primary Care; Visit Provider Nurse Practitioner Primary Care
DX: N17.9 Acute kidney failure, unspecified (principal); E83.42 Hypomagnesemia; R79.89 Other specified abnormal findings of blood chemistry
CPT/HCPCS: 36415; 80053; 83735; 83880

== ENCOUNTER 2023-03-15 13:13 | Emergency (ER) | payer OTHER, SELFPAY ==
[2023-03-15 13:19] VITALS: BP 146/43; PULSE 65; RESP 14; TEMP 36.8; O2SAT 99; BMI 21.5
--- NOTE | 2023-03-15 13:43 | XR_ITS ---
The [address] [address] Patient Name: MARINA MIRZA MRN: [id number] date: 1970 Sex: F Assigned Patient Location: ER Current Patient Location: ER Accession/Order Number: [id number] Exam Date: 03/15/2023 14:10 Report Date: 03/15/2023 14:29 At the request of: AMARJIT GONZALEZ Procedure: XR chest 1V EXAM: XR chest 1V at 1416 hours HISTORY: Weakness COMPARISON: 10/09/2022. TECHNIQUE: AP upright portable chest x-ray FINDINGS: The heart is not enlarged and the vasculature is not distended. No acute infiltrate, effusion or pneumothorax is identified. The osseous structures are grossly intact. XR/XR chest 1V IMPRESSION: No acute infiltrate or evidence of cardiac decompensation. The overall appearance of the chest is unchanged. Electronically authenticated by: KENTON MA Date: 03/15/2023 14:29
--- NOTE | 2023-03-15 13:46 | ED_ITS ---
HPI - Abdominal Pain General Chief Complaint: Abdominal Pain Stated Complaint: GENERAL WEAKNESS/ ABDOMINAL PAIN Time Seen by Provider: 03/15/23 13:32 Source: patient Mode of arrival: Wheelchair History of Present Illness HPI narrative: patient is a 52-year-old female to history of congestive heart failure and diverticulitis who presents to the emergency department with continued weakness, abdominal pain and poor appetite. She states she is concerned she may be dehydrated. She was started on antibiotics yesterday empirically by her physician in [place]. She reports right-sided abdominal pain associated with nausea, lack of appetite. She has had no objective fevers or vomiting. She denies diarrhea or urinary symptoms. She was last treated for diverticulitis several months ago. she has not had any new chest pain or shortness of breath. No medications taken prior to arrival other than her new antibiotics. she has had a previous appendectomy. previous documentation from visit earlier this year show that the patient had a postoperative abscess after her appendectomy. Related Data Home Medications Medication Instructions Recorded Confirmed apixaban 5 mg tablet (Eliquis) 5 mg PO Q12H 10/19/22 10/19/22 atorvastatin 40 mg tablet 40 mg PO .at night 10/19/22 10/19/22 citalopram 20 mg tablet 10 mg PO QDAY 10/19/22 10/19/22 furosemide 20 mg tablet 20 mg PO DAILY 10/19/22 10/19/22 losartan 100 1 tab PO DAILY 10/19/22 10/19/22 mg-hydrochlorothiazide 12.5 mg tablet methimazole 5 mg tablet 5 mg PO .COMPLEX 10/19/22 10/19/22 metoprolol tartrate 100 mg tablet 100 mg PO Q12H 10/19/22 10/19/22 metoprolol tartrate 25 mg tablet 25 mg PO Q12H 10/19/22 10/19/22 mirtazapine 15 mg tablet 15 mg PO .qhs PRN insomnia 10/19/22 10/19/22 potassium chloride 20 mEq 20 meq PO TID 10/19/22 10/19/22 tablet,extended release(part/cryst) (Klor-Con M) Previous Rx's Medication Instructions Recorded levofloxacin 750 mg tablet 750 mg PO QD 5 days #5 tabs 10/22/22 metronidazole 500 mg tablet 500 mg PO Q8H 5 days #15 tabs 10/22/22 ondansetron 4 mg disintegrating 4 mg sublingual Q6H PRN nausea and 10/22/22 tablet vomiting #10 tabs hyoscyamine sulfate 0.125 mg 0.125 mg PO Q6H PRN abdominal pain 03/15/23 tablet (Levsin) #12 tabs ondansetron 4 mg disintegrating 4 mg PO Q6H PRN nausea and 03/15/23 tablet vomiting #12 tabs Allergies Allergy/AdvReac Type Severity Reaction Status Date / Time No Known Drug Allergies Allergy Verified 10/19/22 11:32 Review of Systems ROS Constitutional Denies: fever or chills Ears, nose, mouth, and throat Denies: throat pain Cardiovascular Denies: chest pain Respiratory Denies: shortness of breath or cough Gastrointestinal Reports: abdominal pain and nausea; Denies: vomiting or diarrhea Genitourinary Denies: painful urination Musculoskeletal Denies: back pain Integumentary/Breast Denies: rash Neurological Denies: headache Hematologic/Lymphatic Denies: easy bruising PFSH PFSH Medical History (Updated 03/15/23 @ 16:21 by KAVITA Sanchez) Atrial fibrillation ?I48.91 - Unspecified atrial fibrillation (ICD-10) CHF (congestive heart failure) ?I50.9 - Heart failure, unspecified (ICD-10) Diverticulitis ?K57.92 - Diverticulitis of intestine, part unspecified, without perforation or abscess without bleeding (ICD-10) HLD (hyperlipidemia) ?E78.5 - Hyperlipidemia, unspecified (ICD-10) HTN (hypertension) ?I10 - Essential (primary) hypertension (ICD-10) Hyperthyroidism ?E05.90 - Thyrotoxicosis, unspecified without thyrotoxic crisis or storm (ICD-10) Surgical History (Updated 10/19/22 @ 15:32 by Shelley Mejía RN) Hx of appendectomy ?Z90.49 - Acquired absence of other specified parts of digestive tract (ICD- 10) Family History (Updated 10/19/22 @ 15:34 by Shelley Mejía RN) Father Family history of stroke Family history of myocardial infarction Family history of hypertension Mother Family history of hypertension Family history of diabetes mellitus Family history of cancer Family history of COPD (chronic obstructive pulmonary disease) Grandmother Family history of cancer Social History Within the past year, how often did you have a drink containing alcohol: monthly or less Within the past year, how many standard drinks containing alcohol did you have on a typical day: 1 or 2 Within the past year, how often did you have six or more drinks on one occasion: never Total score: 0 Score interpretation: A score less than 3 is consistent with normal alcohol consumption. Smoking status: Never smoker Second hand tobacco smoke exposure: Yes Non-prescribed substance use: cannabis (any form) Non-prescribed substance use details: PATIENT STATES SHE USED TO USE THC GUMMIES Previous occupational history: [employer] Known occupational exposures/hazards: No Highest level of school completed/degree received: GED or equivalent Are you now , , , , never or living with a partner: In a typical week, how many times do you talk on the telephone with family, friends, or neighbors: twice per week How often do you get together with friends or relatives: once per week How often do you attend scientologist or restoration services: never Do you belong to any clubs or organizations such as scientologist groups unions, fraternal or athletic groups, or school groups: no Total score: 1 Score interpretation: A score of less than or equal to 1 indicates the most socially isolated. Little interest or pleasure in doing things: not at all Feeling down, depressed, or hopeless: not at all Feel stressed/tense/nervous/anxious/difficulty sleeping: very much Life stressors: financial matters Do you think of yourself as: straight/heterosexual Gender Identity: female Exam Narrative Exam Narrative: Gen.: Awake, alert, in no distress Head: Normocephalic, atraumatic ENT: Moist mucous membranes Respiratory: No respiratory distress, lungs clear bilaterally Cardio: Regular rate and rhythm Gastrointestinal: Abdomen is soft, nondistended and mildly tender in the right mid abdomen, no guarding or rebound Extremities: Moves extremities equally, no injuries noted Psych: Normal mood and affect Neuro: No focal neuro deficit Skin: Warm, dry, intact Constitutional Vital Signs, click to edit/add: Last Vital Signs Temp 98.2 F 03/15/23 13:19 Pulse 72 03/15/23 16:04 Resp 18 03/15/23 16:04 BP 149/57 H 03/15/23 16:04 Pulse Ox 98 03/15/23 16:04 O2 Del Method Room Air 03/15/23 13:19 Course Vital Signs Vital signs: Vital Signs Temperature 98.2 F 03/15/23 13:19 Pulse Rate 65 03/15/23 13:19 Respiratory Rate 14 03/15/23 13:19 Blood Pressure 146/43 H 03/15/23 13:19 Pulse Oximetry 99 03/15/23 13:19 Oxygen Delivery Method Room Air 03/15/23 13:19 Temperature 98.2 F 03/15/23 13:19 Pulse Rate 72 03/15/23 16:04 Respiratory Rate 18 03/15/23 16:04 Blood Pressure 149/57 H 03/15/23 16:04 Pulse Oximetry 98 03/15/23 16:04 Oxygen Delivery Method Room Air 03/15/23 13:19 MDM - Abdominal Pain MDM Narrative Medical decision making narrative: patient found to have elevated LFTs, she has had transaminitis in the past. Her lipase is normal, bilirubin is normal and lactic acid is normal. Abdomen is soft and benign in the Emergency Room. She has stable vital signs. Chest x-ray, troponin and BNP are normal. CT of the abdomen and pelvis shows no evidence of diverticulitis, there is suggestion of common bile duct obstruction so an ultrasound of the right upper quadrant was performed which is unremarkable. Patient was reexamined by attending physician prior to discharge, abdomen is soft and benign, she will be discharged home with Bentyl and Zofran as needed. Follow-up with PCP for reevaluation and return to the Emergency Room if symptoms change or worsen. No indication for additional antibiotics at this time. Medical Records Attestation: I reviewed the patient's medical records. Lab Data Attestation: I reviewed the patient's lab results. Labs: Lab Results 03/15/23 Range/Units 13:56 WBC 4.9 (4.0-11.0) 10^3/uL RBC 4.80 (4.20-5.40) 10^6/uL Hgb 12.0 (12.0-16.0) g/dL Hct 39.3 (36.0-48.0) % MCV 81.9 (81.0-99.0) fL MCH 25.0 L (26.7-34.0) pg MCHC 30.5 (29.9-35.2) g/dL RDW 13.6 (11.0-15.0) % Plt Count 252 (150-450) 10^3/uL MPV 10.6 (9.5-13.5) fL Neut % (Auto) 84.1 H (43.0-75.0) % Lymph % (Auto) 13.2 L (20.5-60.0) % Whitley % (Auto) 2.3 (1.7-12.0) % Eos % (Auto) 0.2 L (0.9-7.0) % Baso % (Auto) 0.0 L (0.2-2.0) % Neut # (Auto) 4.1 (1.4-6.5) 10^3/uL Lymph # (Auto) 0.6 L (1.2-3.8) 10^3/uL Whitley # (Auto) 0.1 L (0.3-0.8) 10^3/uL Eos # (Auto) 0.0 (0.0-0.7) 10^3/uL Baso # (Auto) 0.0 (0.0-0.1) 10^3/uL Abs Immat Gran (auto) 0.01 (0.00-0.03) 10^3/uL Imm/Tot Granulo (auto) 0.2 (0.0-0.5) % Sodium 139 (136-145) mmol/L Potassium 3.7 (3.5-5.1) mmol/L Chloride 106 (98-107) mmol/L Carbon Dioxide 16.5 L (21.0-32.0) mmol/L Anion Gap 20.2 BUN 24.0 H (7.0-18.0) mg/dL Creatinine 0.94 (0.55-1.02) mg/dL Est GFR ( Amer) >60 (>=60) Est GFR (Non-Af Amer) >60 (>=60) BUN/Creatinine Ratio 25.5 Glucose 85 (74-106) mg/dL Lactate 1.8 (0.4-2.0) mmol/L Calcium 9.2 (8.5-10.1) mg/dL Total Bilirubin 0.6 (0.2-1.0) mg/dL AST 39 H (15-37) U/L ALT 128 H (14-59) U/L Alkaline Phosphatase 202 H (46-116) U/L Troponin I High Sens 10.8 (4.0-51.3) pg/mL NT-Pro-B Natriuret Pep 784.0 (<=900.0) pg/mL Total Protein 7.1 (6.4-8.2) g/dL Albumin 3.7 (3.4-5.0) g/dL Globulin 3.4 g/dL Albumin/Globulin Ratio 1.1 Lipase 54.0 (16.0-77.0) U/L Imaging Data CT scan - abdomen: Attestation: I have reviewed the pertinent imaging results. Radiologist's impression: Procedure: CT abdomen pelvis w con CT abdomen pelvis w con, 03/15/2023 2:10 PM EDT INDICATION: Abdominal pain COMPARISON: Contrast-enhanced CT scan of the abdomen and pelvis 10/21/2022, 10/19/2022 TECHNIQUE: Axial images of the abdomen and pelvis were obtained after the administration of IV contrast. Multiplanar reformatted images were generated and reviewed as needed. Dose reduction techniques were achieved by using automated exposure control and/or adjustment of mA and/or kV according to patient size and/or use of iterative reconstruction technique. FINDINGS: No consolidation or effusion. Gallbladder distention with mild intrahepatic ductal dilatation. The common bile duct is 7 mm in maximum diameter. The common bile duct is upper limits of normal for size in the head of the pancreas measuring 3.3 mm in diameter. No pericholecystic fat stranding. The pancreas, spleen and adrenals are unremarkable. Symmetric nephrograms without evidence of obstruction. No urolithiasis. Uterus and adnexa grossly unremarkable. No aortic aneurysm. No bowel obstruction or acute focal inflammation. Appendectomy. Multiple duodenal, distal ileal and diffuse colonic diverticula. Inspissated content within 3.2 cm periampullary duodenal diverticulum. No pneumatosis, pneumoperitoneum or ascites. No mesenteric or retroperitoneal lymphadenopathy. No acute fracture or dislocation. IMPRESSION: 1. Mild biliary obstruction. Differential considerations include mild biliary obstruction secondary to mass effect from periampullary duodenal diverticulum, sphincter of Benjamin dysfunction. No findings of acute gallbladder inflammation or findings to suggest cholangitis. 2. Duodenal, small bowel and colonic diverticulosis. No findings to suggest diverticulitis. Electronically authenticated by: KAYDEN AGUILAR Date: 03/15/2023 14:50 US - abdomen: Attestation: I have reviewed the pertinent imaging results. Radiologist's impression: Procedure: US right upper quadrant US right upper quadrant, 03/15/2023 3:01 PM EDT INDICATION:Loss of appetite x2 weeks COMPARISON: Right upper quadrant ultrasound 10/21/2022 TECHNIQUE: Multi-planar real-time ultrasonography of the upper abdomen (right upper quadrant) using grayscale imaging, supplemented by color, power, and spectral Doppler as needed. FINDINGS: The visualized head and body are unremarkable without pancreatic ductal dilatation. On ultrasound images provided, the pancreatic tail is 3.0 cm in diameter and partially obscured by bowel gas. The liver is 11.4 cm with normal echotexture. No intrahepatic ductal dilatation. Common bile duct 5.4mm Normal gallbladder. No gallbladder wall thickening or pericholecystic fluid. Negative sonographic Curry's sign. The main portal vein is antegrade with low resistance venous spectral tracing and peak velocity upper limits of normal. Right kidney: 9.1 x 4.9 x 4.6 cm. No hydronephrosis. Normal color Doppler to the right kidney. No ascites. IMPRESSION: 1. Limited evaluation of the pancreas due to overlying bowel gas. By measurements provided, the pancreatic tail is above normal limits for size. No pancreatic ductal dilatation or peripancreatic fluid. Electronically authenticated by: KAYDEN AGUILAR Date: 03/15/2023 15:56 Chest x-ray: Attestation: I have reviewed the pertinent imaging results. Radiologist's impression: Procedure: XR chest 1V EXAM: XR chest 1V at 1416 hours HISTORY: Weakness COMPARISON: 10/09/2022. TECHNIQUE: AP upright portable chest x-ray FINDINGS: The heart is not enlarged and the vasculature is not distended. No acute infiltrate, effusion or pneumothorax is identified. The osseous structures are grossly intact. IMPRESSION: No acute infiltrate or evidence of cardiac decompensation. The overall appearance of the chest is unchanged. Electronically authenticated by: KENTON MA Date: 03/15/2023 14:29 ECG Data Attestation: I personally reviewed and interpreted this ECG as follows: (normal sinus rhythm with occasional PVC, second-degree AV block with no acute ST elevation. EKG reviewed by attending physician.) Discharge Plan Discharge Chief Complaint: Abdominal Pain Clinical Impression: Abdominal pain Patient Disposition: Home, Self-Care Time of Disposition Decision: 16:21 Condition: Good Prescriptions / Home Meds: New hyoscyamine sulfate [Levsin] 0.125 mg tablet 0.125 mg PO Q6H PRN (Reason: abdominal pain) Qty: 12 0RF ondansetron 4 mg tablet,disintegrating 4 mg PO Q6H PRN (Reason: nausea and vomiting) Qty: 12 0RF No Action Eliquis 5 mg tablet 5 mg PO Q12H atorvastatin 40 mg tablet 40 mg PO .at night furosemide 20 mg tablet 20 mg PO DAILY potassium chloride [Klor-Con M20] 20 mEq tablet,ER particles/crystals 20 meq PO TID metoprolol tartrate 100 mg tablet 100 mg PO Q12H metoprolol tartrate 25 mg tablet 25 mg PO Q12H citalopram 20 mg tablet 10 mg PO QDAY methimazole 5 mg tablet 5 mg PO .COMPLEX Rx Instructions: 5 mg orally every day except monday and monday; mirtazapine 15 mg tablet 15 mg PO .qhs PRN (Reason: insomnia) losartan-hydrochlorothiazide 100-12.5 mg tablet 1 tab PO DAILY levofloxacin 750 mg Tablet 750 mg PO QD 5 Days Qty: 5 0RF ondansetron 4 mg Tablet,Disintegrating 4 mg sublingual Q6H PRN (Reason: nausea and vomiting) Qty: 10 0RF metronidazole 500 mg tablet 500 mg PO Q8H 5 Days Qty: 15 0RF Instructions: Abdominal Pain (ED) Stand Alone Forms: Portal Instructions Referrals: SYLWIA CLEMENT [Physician] - 1 week DIVYA ACOSTA APRN [Primary Care Provider] - 1 week
--- NOTE | 2023-03-15 13:49 | ECG_ITS ---
The [facility] Test Date: 2023-03-15 Pat Name: MARINA MIRZA Department: Room: - Gender: Female [place] Department Supervisor: : 1970 Requested By: DIVYA ACOSTA Order Number: [id number] Reading MD: BRANDI VARGHESE Measurements Intervals Starbuck Rate: 61 P: 56 NM: 160 QRS: 75 QRSD: 96 T: 69 QT: 440 QTc: 444 Interpretive Statements 1100 Sinus rhythm 1570 with occasional ventricular premature complexes 9150 abnormal ECG No previous ECG available for comparison Electronically Signed On 03-16-2023 7:09:56 EDT by BRANDI VARGHESE
[2023-03-15] MEDS: ONDANSETRON PF 4 MG/2 ML VIAL IV (13:53)
[2023-03-15] MEDS: MORPHINE SULFATE 2 MG/ML SYRINGE IV (13:53)
[2023-03-15] MEDS: 0.9 % SODIUM CHLORIDE 1,000 ML 250 ML IV (13:53)
[2023-03-15 14:10] LABS: Eosinophils Percent Auto 0.2 % (0.9-7.0); Hematocrit 39.3 % (36.0-48.0); Immature Granulocytes Abs Auto 0.01 10^3/uL (0.00-0.03); Immature Granulocytes Pct Auto 0.2 % (0.0-0.5); Lymphocytes Absolute Auto 0.6 10^3/uL (1.2-3.8); Lymphocytes Percent Auto 13.2 % (20.5-60.0); Mean Corpuscular HGB Conc 30.5 g/dL (29.9-35.2); Mean Corpuscular Volume 81.9 fL (81.0-99.0); Mean Platelet Volume 10.6 fL (9.5-13.5); Monocytes Absolute Auto 0.1 10^3/uL (0.3-0.8); Monocytes Percent Auto 2.3 % (1.7-12.0); Neutrophils Absolute Auto 4.1 10^3/uL (1.4-6.5); Neutrophils Percent Auto 84.1 % (43.0-75.0); Platelet Count 252 10^3/uL (150-450); Red Cell Distribution Width 13.6 % (11.0-15.0); White Blood Count 4.9 10^3/uL (4.0-11.0)
[2023-03-15 14:30] VITALS: BP 154/57; PULSE 74; RESP 20; O2SAT 97
[2023-03-15 14:31] VITALS: PULSE 66
[2023-03-15 14:41] LABS: Lactate/Lactic Acid 1.8 mmol/L (0.4-2.0)
[2023-03-15 14:48] LABS: Alanine Aminotransferase 128 U/L (14-59); Albumin Globulin Ratio 1.1; Albumin Level 3.7 g/dL (3.4-5.0); Alkaline Phosphatase 202 U/L (46-116); Anion Gap 20.2; Aspartate Amino Transferase 39 U/L (15-37); BUN Creatinine Ratio 25.5; Bilirubin Total 0.6 mg/dL (0.2-1.0); Calcium 9.2 mg/dL (8.5-10.1); Carbon Dioxide 16.5 mmol/L (21.0-32.0); Chloride 106 mmol/L (98-107); Estimated GFR (African America >60 (>=60); Estimated GFR (Non-African Ame >60 (>=60); Globulin 3.4 g/dL; Glucose 85 mg/dL (74-106); Potassium 3.7 mmol/L (3.5-5.1); Sodium 139 mmol/L (136-145); Total Protein 7.1 g/dL (6.4-8.2); Troponin I High Sensitivity 10.8 pg/mL (4.0-51.3)
--- NOTE | 2023-03-15 15:00 | US_ITS ---
The [address] [address] Patient Name: MARINA MIRZA MRN: [id number] date: 1970 Sex: F Assigned Patient Location: ER Current Patient Location: ER Accession/Order Number: [id number] Exam Date: 03/15/2023 15:01 Report Date: 03/15/2023 15:56 At the request of: AMARJIT GONZALEZ Procedure: US right upper quadrant US right upper quadrant, 03/15/2023 3:01 PM EDT INDICATION:Loss of appetite x2 weeks COMPARISON: Right upper quadrant ultrasound 10/21/2022 TECHNIQUE: Multi-planar real-time ultrasonography of the upper abdomen (right upper quadrant) using grayscale imaging, supplemented by color, power, and spectral Doppler as needed. FINDINGS: The visualized head and body are unremarkable without pancreatic ductal dilatation. On ultrasound images provided, the pancreatic tail is 3.0 cm in diameter and partially obscured by bowel gas. The liver is 11.4 cm with normal echotexture. No intrahepatic ductal dilatation. Common bile duct 5.4mm Normal gallbladder. No gallbladder wall thickening or pericholecystic fluid. Negative sonographic Curry's sign. The main portal vein is antegrade with low resistance venous spectral tracing and peak velocity upper limits of normal. Right kidney: 9.1 x 4.9 x 4.6 cm. No hydronephrosis. Normal color Doppler to the right kidney. No ascites. US/US right upper quadrant IMPRESSION: 1. Limited evaluation of the pancreas due to overlying bowel gas. By measurements provided, the pancreatic tail is above normal limits for size. No pancreatic ductal dilatation or peripancreatic fluid. Electronically authenticated by: KAYDEN AGUILAR Date: 03/15/2023 15:56
[2023-03-15 16:04] VITALS: BP 149/57; PULSE 72; RESP 18; O2SAT 98
== END 2023-03-15 16:34 | disposition home or self-care (01) ==
PROVIDERS: Physician Assistant; Emergency Provider Emergency Medicine; PCP Nurse Practitioner Primary Care
DX: R10.9 Unspecified abdominal pain (principal); R79.89 Other specified abnormal findings of blood chemistry; I48.91 Unspecified atrial fibrillation; I11.0 Hypertensive heart disease with heart failure; I50.9 Heart failure, unspecified; E78.5 Hyperlipidemia, unspecified; E05.90 Thyrotoxicosis, unspecified without thyrotoxic crisis or storm; Z90.49 Acquired absence of other specified parts of digestive tract; Z79.01 Long term (current) use of anticoagulants; Z79.899 Other long term (current) drug therapy
CPT/HCPCS: 36415; 71045; 74177; 76705; 80053; 83605; 83690; 83880; 84484; 85025; 93005; 96374; 96375; 99285; Q9967

== ENCOUNTER 2023-03-29 06:52 | Outpatient (OUT) | payer OTHER, SELFPAY ==
--- NOTE | 2023-03-29 | PCN_ITS ---
CARDIAC STRESS TEST Requesting Physician:? Procedure Date:? 03/29/2023 Treadmill stress test with myocardial perfusion imaging performed at the [facility] on 03/29/2023. Informed consent was obtained.? An intravenous line was secured.? Resting ECG and vital signs were obtained. The patient exercised on the treadmill for 4 minutes and 14 seconds, according to the Wayne protocol, and reached stage 2 and achieved 6.4 METS.? The test was stopped due to reaching target heart rate as well as shortness of breath and muscle fatigue.? Resting heart rate was 64 BPM and maximal heart rate was 156 BPM representing 87% of maximal predicted heart rate.? Resting blood pressure was 142/75 and maximal blood pressure was 188/86. Resting ECG showed sinus rhythm with non-specific ST changes in the inferior leads.? ECG during stress test as well as during the recovery period showed sinus tachycardia with [address] segment depressions noted in leads 2, 3, AVF, as well as V4, V5 and V6.?? During exercise, occasional PVCs were noted.? During the recovery period, frequent PVCs were seen in bigeminy.? Final ECG showed sinus rhythm and was comparable to baseline. CONCLUSIONS: 1.? Positive treadmill exercise stress test for exercise induced ischemic ECG changes. 2.? Resting hypertension and hypertensive response to exercise. 3.? The patient developed chest pain symptoms during exercise that are similar to her primary complaint.? 4.? Bright treadmill score of -5 is associated with intermediate risk for snf cardiac events. 5.? Myocardial perfusion images will be reported separately. JAI
--- NOTE | 2023-03-29 06:15 | NM_ITS ---
Patient Name: MARINA MIRZA MR#: [id number] : 1970 Exam Date: 03/29/2023 Ordering Doctor: CHOLO [facility] REPORT PROCEDURE: NM SHAWANDA PERF SPECT REST STR COMPARISON: None. INDICATIONS: NONSUSTAINED VENTRICULAR TACHYCARDIA TECHNIQUE: Exam Description: Stress/Rest one day protocol gated SPECT Rest Imagin.6 mCi Tc-99m Cardiolite IV on 03/29/2023 Stress Imaging 30.6 mCi Tc-99m Cardiolite IV on 03/29/2023 Exercise Protocol: Wayne Heart Rate (bpm): Rest: 64 Max: 146 PMHR: 87 Blood Pressure: Rest: 142/76 Max: 188/86 Exercise Time: Minutes: 4 Seconds: 14 Stage Reached: Stage: 2 Mets 6.4 Symptoms: shortness of breath Rest and peak stress ECG findings were abnormal and the exercise portion of the study was abnormal per attending physician Dr. Ramirez . For more details please see separate cardiac stress test report. FINDINGS: QUALITY OF STUDY: Good. PERFUSION DEFECT: LOCATION: Apical anterior. [place]. SIZE: Small (1-2 segments). SEVERITY: Mild. TYPE: Persistent. WALL MOTION: Normal. LV SIZE: Normal. 63 mL. TID / TCD: None; 0.7 LVEF: Normal. Calculated EF 64%. SUMMARY: Myocardial perfusion imaging study has ABNORMAL findings. CONCLUSION: 1. Small fixed defect anterior wall, LAD distribution 2. No reversible ischemia 3. Abnormal exercise test Dictated by: Artis Choudhary MD on 03/30/2023 at 15:38 Approved by: Artis Choudhary MD on 03/30/2023 at 15:40
== END 2023-03-29 06:53 | disposition home or self-care (01) ==
LOC: NM 06:53
PROVIDERS: PCP Family Medicine; Visit Provider Nurse Practitioner
DX: I47.29 Other ventricular tachycardia (principal); R94.31 Abnormal electrocardiogram [ECG] [EKG]
CPT/HCPCS: 78452; 93017; A9500

== ENCOUNTER 2023-05-24 14:09 | Emergency (ER) | payer OTHER, SELFPAY ==
[2023-05-24] VITALS (39 sets, daily range): BP systolic 106–185; BP diastolic 67–98; PULSE 0–116; RESP 14–29; TEMP 36.6; O2SAT 77–100; BMI 21.1
--- NOTE | 2023-05-24 14:13 | XR_ITS ---
The [address] [address] Patient Name: MARINA MIRZA MRN: [id number] date: 1970 Sex: F Assigned Patient Location: ER Current Patient Location: ER Accession/Order Number: [id number] Exam Date: 05/24/2023 14:40 Report Date: 05/24/2023 14:52 At the request of: AMARJIT GONZALEZ Procedure: XR chest 1V EXAMINATION: XR chest 1V HISTORY: Shortness of breath COMPARISON: XR chest 03/15/2023 FINDINGS: LUNGS: Small patchy opacity within lateral right lung base. VASCULATURE: No increased pulmonary vasculature. PLEURA: No pneumothorax, effusion, or pleural thickening. CARDIAC: No cardiomegaly or cardiac silhouette abnormality. MEDIASTINUM: No visible mass or adenopathy. BONES: No fracture or visible bone lesion. OTHER: Negative. XR/XR chest 1V IMPRESSION: 1. Trace amount of right basilar infiltrates versus atelectasis. Electronically authenticated by: THADDEUS LO Date: 05/24/2023 14:52
--- NOTE | 2023-05-24 14:16 | ED_ITS ---
HPI - SOB/Dyspnea General Chief Complaint: Shortness of Breath/Dyspnea Stated Complaint: DIZZINESS Time Seen by Provider: 05/24/23 14:12 Source: patient Mode of arrival: ambulance History of Present Illness HPI Narrative: Patient is a 52-year-old female who presents to the emergency department by ambulance from her primary care provider office in [place] where she was being evaluated. She states she was feeling short of breath after getting out of the shower prior to her appointment and while in the office felt lightheaded on standing. She denies any dizziness at this time. She states she feels short of breath and shaky. She has been intubated previously for COPD/CHF. She denies fevers, chills, sputum production, vomiting, diarrhea, chest pain. Related Data Home Medications Medication Instructions Recorded Confirmed apixaban 5 mg tablet (Eliquis) 5 mg PO Q12H 10/19/22 10/19/22 atorvastatin 40 mg tablet 40 mg PO .at night 10/19/22 10/19/22 citalopram 20 mg tablet 10 mg PO QDAY 10/19/22 10/19/22 furosemide 20 mg tablet 20 mg PO DAILY 10/19/22 10/19/22 losartan 100 1 tab PO DAILY 10/19/22 10/19/22 mg-hydrochlorothiazide 12.5 mg tablet methimazole 5 mg tablet 5 mg PO .COMPLEX 10/19/22 10/19/22 metoprolol tartrate 100 mg tablet 100 mg PO Q12H 10/19/22 10/19/22 metoprolol tartrate 25 mg tablet 25 mg PO Q12H 10/19/22 10/19/22 mirtazapine 15 mg tablet 15 mg PO .qhs PRN insomnia 10/19/22 10/19/22 potassium chloride 20 mEq 20 meq PO TID 10/19/22 10/19/22 tablet,extended release(part/cryst) (Klor-Con M) Previous Rx's Medication Instructions Recorded levofloxacin 750 mg tablet 750 mg PO QD 5 days #5 tabs 10/22/22 metronidazole 500 mg tablet 500 mg PO Q8H 5 days #15 tabs 10/22/22 ondansetron 4 mg disintegrating 4 mg sublingual Q6H PRN nausea and 10/22/22 tablet vomiting #10 tabs hyoscyamine sulfate 0.125 mg 0.125 mg PO Q6H PRN abdominal pain 03/15/23 tablet (Levsin) #12 tabs ondansetron 4 mg disintegrating 4 mg PO Q6H PRN nausea and 03/15/23 tablet vomiting #12 tabs Allergies Allergy/AdvReac Type Severity Reaction Status Date / Time No Known Drug Allergies Allergy Verified 10/19/22 11:32 Review of Systems ROS Constitutional Denies: fever or chills Ears, nose, mouth, and throat Denies: throat pain or nasal congestion Cardiovascular Denies: chest pain Respiratory Reports: shortness of breath and cough Gastrointestinal Reports: nausea; Denies: abdominal pain, vomiting or diarrhea Genitourinary Denies: painful urination Musculoskeletal Denies: back pain Integumentary/Breast Denies: rash Neurological Reports: dizziness; Denies: headache PFSH PFSH Medical History (Updated 05/24/23 @ 17:02 by KAVITA Sanchez) HLD (hyperlipidemia) ?E78.5 - Hyperlipidemia, unspecified (ICD-10) Diverticulitis ?K57.92 - Diverticulitis of intestine, part unspecified, without perforation or abscess without bleeding (ICD-10) CHF (congestive heart failure) ?I50.9 - Heart failure, unspecified (ICD-10) Hyperthyroidism ?E05.90 - Thyrotoxicosis, unspecified without thyrotoxic crisis or storm (ICD-10) HTN (hypertension) ?I10 - Essential (primary) hypertension (ICD-10) Atrial fibrillation ?I48.91 - Unspecified atrial fibrillation (ICD-10) Surgical History (Updated 10/19/22 @ 15:32 by Shelley Mejía RN) Hx of appendectomy ?Z90.49 - Acquired absence of other specified parts of digestive tract (ICD- 10) Family History (Updated 10/19/22 @ 15:34 by Shelley Mejía RN) Father Family history of stroke Family history of myocardial infarction Family history of hypertension Mother Family history of hypertension Family history of diabetes mellitus Family history of cancer Family history of COPD (chronic obstructive pulmonary disease) Grandmother Family history of cancer Social History Within the past year, how often did you have a drink containing alcohol: monthly or less Within the past year, how many standard drinks containing alcohol did you have on a typical day: 1 or 2 Within the past year, how often did you have six or more drinks on one occasion: never Total score: 0 Score interpretation: A score less than 3 is consistent with normal alcohol consumption. Smoking status: Never smoker Second hand tobacco smoke exposure: Yes Non-prescribed substance use: cannabis (any form) Non-prescribed substance use details: PATIENT STATES SHE USED TO USE THC GUMMIES Previous occupational history: [employer] Known occupational exposures/hazards: No Highest level of school completed/degree received: GED or equivalent Are you now , , , , never or living with a partner: In a typical week, how many times do you talk on the telephone with family, friends, or neighbors: twice per week How often do you get together with friends or relatives: once per week How often do you attend muslim or christianity services: never Do you belong to any clubs or organizations such as muslim groups unions, fraternal or athletic groups, or school groups: no Total score: 1 Score interpretation: A score of less than or equal to 1 indicates the most socially isolated. Little interest or pleasure in doing things: not at all Feeling down, depressed, or hopeless: not at all Feel stressed/tense/nervous/anxious/difficulty sleeping: very much Life stressors: financial matters Do you think of yourself as: straight/heterosexual Gender Identity: female Exam Narrative Exam Narrative: Gen.: Awake, alert, in no distress Head: Normocephalic, atraumatic ENT: Moist mucous membranes Respiratory: No respiratory distress, lungs clear bilaterally Cardio: Irregular, rate controlled Gastrointestinal: Abdomen is soft, nondistended and nontender to palpation Extremities: Moves extremities equally, no Pedal edema Psych: Normal mood and affect Neuro: No focal neuro deficit Skin: Warm, dry, intact Constitutional Vital Signs, click to edit/add: Last Vital Signs Temp 97.8 F 05/24/23 14:11 Pulse 93 H 05/24/23 16:30 Resp 18 05/24/23 14:11 BP 152/74 H 05/24/23 16:16 Pulse Ox 98 05/24/23 16:30 O2 Del Method Room Air 05/24/23 14:11 Course Vital Signs Vital signs: Vital Signs Temperature 97.8 F 05/24/23 14:11 Pulse Rate 106 H 05/24/23 14:11 Respiratory Rate 18 05/24/23 14:11 Blood Pressure 137/94 H 05/24/23 14:11 Pulse Oximetry 99 05/24/23 14:11 Oxygen Delivery Method Room Air 05/24/23 14:11 Temperature 97.8 F 05/24/23 14:11 Pulse Rate 93 H 05/24/23 16:30 Respiratory Rate 18 05/24/23 14:11 Blood Pressure 152/74 H 05/24/23 16:16 Pulse Oximetry 98 05/24/23 16:30 Oxygen Delivery Method Room Air 05/24/23 14:11 MDM - SOB/Dyspnea MDM Narrative Medical decision making narrative: On arrival to the emergency department, patient was noted to be in rate controlled A-fib with no complaint of dizziness or chest pain. She was given Zofran for feeling nauseous. She was noted on EKG and cardiac monitoring to have pauses she was noted on cardiac monitoring to have pauses associated with feeling dizzy. She was treated with gentle IV fluids and oral and IV potassium for hypokalemia. The remainder of her labs are stable including normal D-dimer, troponin and BNP. Chest x-ray with trace atelectasis versus infiltrate in the right base. I discussed the case with Dr. Esquivel For [facility] who recommended with the patient's dizziness associated with her arrhythmia she should be admitted to [facility] for cardioversion versus cardiac cath versus pacemaker placement. He recommended against antiarrhythmics. Patient is resting comfortably on reevaluation by attending physician and she understands the need for transfer. Critical care time 45 minutes. 1645: Patient accepted by [facility] Nolasco for hospitalist Dr. Aden Medical Records Attestation: I reviewed the patient's medical records. Lab Data Attestation: I reviewed the patient's lab results. Labs: Lab Results 05/24/23 05/24/23 05/24/23 Range/Units 14:22 14:35 15:24 WBC 7.4 (4.0-11.0) 10^3/uL RBC 5.63 H (4.20-5.40) 10^6/uL Hgb 14.7 (12.0-16.0) g/dL Hct 45.6 (36.0-48.0) % MCV 81.0 (81.0-99.0) fL MCH 26.1 L (26.7-34.0) pg MCHC 32.2 (29.9-35.2) g/dL RDW 15.1 H (11.0-15.0) % Plt Count 342 (150-450) 10^3/uL MPV 10.9 (9.5-13.5) fL Neut % (Auto) 52.4 (43.0-75.0) % Lymph % (Auto) 39.5 (20.5-60.0) % [place] % (Auto) 6.5 (1.7-12.0) % Eos % (Auto) 0.5 L (0.9-7.0) % Baso % (Auto) 0.8 (0.2-2.0) % Neut # (Auto) 3.9 (1.4-6.5) 10^3/uL Lymph # (Auto) 2.9 (1.2-3.8) 10^3/uL [place] # (Auto) 0.5 (0.3-0.8) 10^3/uL Eos # (Auto) 0.0 (0.0-0.7) 10^3/uL Baso # (Auto) 0.1 (0.0-0.1) 10^3/uL Abs Immat Gran (auto) 0.02 (0.00-0.03) 10^3/uL Imm/Tot Granulo (auto) 0.3 (0.0-0.5) % PT 10.9 (9.0-11.6) sec INR 1.03 D-Dimer <0.19 (<=0.59) mg/L FEU VBG pH 7.400 (7.330-7.430) VBG pCO2 44.8 (40.0-52.0) mmHg Sodium 142 (136-145) mmol/L Potassium 2.7 L* (3.5-5.1) mmol/L Chloride 103 (98-107) mmol/L Carbon Dioxide 25.8 (21.0-32.0) mmol/L Anion Gap 15.9 BUN 26.0 H (7.0-18.0) mg/dL Creatinine 1.33 H (0.55-1.02) mg/dL Est GFR ( Amer) 51 L (>=60) Est GFR (Non-Af Amer) 42 L (>=60) BUN/Creatinine Ratio 19.5 Glucose 111 H (74-106) mg/dL Lactate 4.1 H* (0.4-2.0) mmol/L Calcium 10.2 H (8.5-10.1) mg/dL Total Bilirubin 0.9 (0.2-1.0) mg/dL AST 26 (15-37) U/L ALT 56 (14-59) U/L Alkaline Phosphatase 249 H (46-116) U/L Troponin I High Sens 14.8 (4.0-51.3) pg/mL NT-Pro-B Natriuret Pep 136.0 (<=900.0) pg/mL Total Protein 8.9 H (6.4-8.2) g/dL Albumin 4.6 (3.4-5.0) g/dL Globulin 4.3 g/dL Albumin/Globulin Ratio 1.1 TSH <0.007 L (0.358-3.740) uIU/mL Urine Color Lt. yellow (YELLOW) Urine Clarity Clear (CLEAR) Urine pH 7.0 (5.0-9.0) Ur Specific [place] <=1.005 A (1.005-1.025) Urine Protein Negative (NEG/TRACE) mg/dL Urine Glucose (UA) Negative (NEGATIVE) mg/dL Urine Ketones Negative (NEGATIVE) mg/dL Urine Occult Blood Negative (NEGATIVE) Urine Nitrite Negative (NEGATIVE) Urine Bilirubin Negative (NEGATIVE) Urine Urobilinogen 0.2 (0.2-1.0) EU/dL Ur Leukocyte Esterase Negative (NEGATIVE) Influenza Type A Ag Influenza Type B Ag SARS-CoV-2 Ag (CV2AG) Negative (NEGATIVE) 05/24/23 Range/Units 15:25 WBC (4.0-11.0) 10^3/uL RBC (4.20-5.40) 10^6/uL Hgb (12.0-16.0) g/dL Hct (36.0-48.0) % MCV (81.0-99.0) fL MCH (26.7-34.0) pg MCHC (29.9-35.2) g/dL RDW (11.0-15.0) % Plt Count (150-450) 10^3/uL MPV (9.5-13.5) fL Neut % (Auto) (43.0-75.0) % Lymph % (Auto) (20.5-60.0) % [place] % (Auto) (1.7-12.0) % Eos % (Auto) (0.9-7.0) % Baso % (Auto) (0.2-2.0) % Neut # (Auto) (1.4-6.5) 10^3/uL Lymph # (Auto) (1.2-3.8) 10^3/uL [place] # (Auto) (0.3-0.8) 10^3/uL Eos # (Auto) (0.0-0.7) 10^3/uL Baso # (Auto) (0.0-0.1) 10^3/uL Abs Immat Gran (auto) (0.00-0.03) 10^3/uL Imm/Tot Granulo (auto) (0.0-0.5) % PT (9.0-11.6) sec INR D-Dimer (<=0.59) mg/L FEU VBG pH (7.330-7.430) VBG pCO2 (40.0-52.0) mmHg Sodium (136-145) mmol/L Potassium (3.5-5.1) mmol/L Chloride (98-107) mmol/L Carbon Dioxide (21.0-32.0) mmol/L Anion Gap BUN (7.0-18.0) mg/dL Creatinine (0.55-1.02) mg/dL Est GFR ( Amer) (>=60) Est GFR (Non-Af Amer) (>=60) BUN/Creatinine Ratio Glucose (74-106) mg/dL Lactate (0.4-2.0) mmol/L Calcium (8.5-10.1) mg/dL Total Bilirubin (0.2-1.0) mg/dL AST (15-37) U/L ALT (14-59) U/L Alkaline Phosphatase (46-116) U/L Troponin I High Sens (4.0-51.3) pg/mL NT-Pro-B Natriuret Pep (<=900.0) pg/mL Total Protein (6.4-8.2) g/dL Albumin (3.4-5.0) g/dL Globulin g/dL Albumin/Globulin Ratio TSH (0.358-3.740) uIU/mL Urine Color (YELLOW) Urine Clarity (CLEAR) Urine pH (5.0-9.0) Ur Specific [place] (1.005-1.025) Urine Protein (NEG/TRACE) mg/dL Urine Glucose (UA) (NEGATIVE) mg/dL Urine Ketones (NEGATIVE) mg/dL Urine Occult Blood (NEGATIVE) Urine Nitrite (NEGATIVE) Urine Bilirubin (NEGATIVE) Urine Urobilinogen (0.2-1.0) EU/dL Ur Leukocyte Esterase (NEGATIVE) Influenza Type A Ag Negative Influenza Type B Ag Negative SARS-CoV-2 Ag (CV2AG) (NEGATIVE) Imaging Data Chest x-ray: Attestation: I have reviewed the pertinent imaging results. Radiologist's impression: ITS Impressions Chest X-Ray 05/24/23 14:13 IMPRESSION: 1. Trace amount of right basilar infiltrates versus atelectasis. Electronically authenticated by: THADDEUS LO Date: 05/24/2023 14:52 ECG Data Attestation: I personally reviewed and interpreted this ECG as follows: (A-fib at a rate of [address] depression and intermittent pauses, no ST elevation. EKG reviewed by attending physician and compared to previous) Discharge Plan Discharge Chief Complaint: Shortness of Breath/Dyspnea Clinical Impression: Shortness of breath, Dizziness, Arrhythmia, A-fib, Acute hypokalemia Patient Disposition: [facility] Time of Disposition Decision: 17:02 Discharge Location: [facility] Med Prescriptions / Home Meds: No Action Eliquis 5 mg tablet 5 mg PO Q12H atorvastatin 40 mg tablet 40 mg PO .at night furosemide 20 mg tablet 20 mg PO DAILY potassium chloride [Klor-Con M20] 20 mEq tablet,ER particles/crystals 20 meq PO TID metoprolol tartrate 100 mg tablet 100 mg PO Q12H metoprolol tartrate 25 mg tablet 25 mg PO Q12H citalopram 20 mg tablet 10 mg PO QDAY methimazole 5 mg tablet 5 mg PO .COMPLEX Rx Instructions: 5 mg orally every day except monday and monday; mirtazapine 15 mg tablet 15 mg PO .qhs PRN (Reason: insomnia) losartan-hydrochlorothiazide 100-12.5 mg tablet 1 tab PO DAILY levofloxacin 750 mg Tablet 750 mg PO QD 5 Days Qty: 5 0RF ondansetron 4 mg Tablet,Disintegrating 4 mg sublingual Q6H PRN (Reason: nausea and vomiting) Qty: 10 0RF metronidazole 500 mg tablet 500 mg PO Q8H 5 Days Qty: 15 0RF hyoscyamine sulfate [Levsin] 0.125 mg tablet 0.125 mg PO Q6H PRN (Reason: abdominal pain) Qty: 12 0RF ondansetron 4 mg tablet,disintegrating 4 mg PO Q6H PRN (Reason: nausea and vomiting) Qty: 12 0RF Referrals: SYLWIA CLEMENT [Primary Care Provider] - 1 week
--- NOTE | 2023-05-24 14:18 | ECG_ITS ---
[facility] Test Date: 2023-05-24 Pat Name: MARINA MIRZA Department: Room: - Gender: Female Cook [place]: : 1970 Requested By: [id number] Order Number: [id number] Reading MD: ANDREINA VANESSA Measurements Intervals [place] Rate: 93 P: -[id number] [place]: -[id number] QRS: 78 QRSD: 100 T: 247 QT: 356 QTc: 407 Interpretive Statements 1210 Atrial fibrillation [address] depression, possible subendocardial injury or digitalis effect 67736 Tw[place] abnormality, possible lateral ischemia or digitalis effect 66001 [place] abnormality, possible inferior ischemia or digitalis effect 9150 abnormal ECG Compared to ECG 03/15/2023 14:32:40 ST (T wave) deviation now present Possible ischemia now present Sinus rhythm no longer present Ventricular premature complex(es) no longer present Electronically Signed On 05-29-2023 6:42:48 EST by ANDREINA VANESSA
--- OUTSIDE RECORDS SUMMARY | 2023-05-24 14:32 | XMS_ITS | CCD ---
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 Name Role Phone Hector QUILES Attending Unavailable NILL, Hector Hair Attending Unavailable Musa Caro Referring Unavailable MISC, DR TOMPKINS Primary Care Unavailable MISC, DR TOMPKINS Attending Unavailable MISC, DR TOMPKINS Admitting Unavailable ROBBIE ., YAYO Admitting Unavailable ZIEBER, DR THADDEUS Hair Consulting Unavailable [facility] Primary Care Unavailable ROBBIE ., YAYO Attending Unavailable DAMIÁN ., DR WILCOX Consulting Unavailable SWEENEY ., MR CAPUTO Consulting Unavailable NILL ., DR SAHA Consulting Unavailable FELICIANO QUIROZ Consulting Unavailable GOINSHIMA ROSALES Consulting Unavailable ROBBIE ., YAYO Consulting Unavailable RAJ EDGAR Consulting Unavailable SHAMMO, DIVYA Primary Care Unavailable SHAMMO, DIVYA Attending Unavailable SHAMMO, DIVYA Admitting Unavailable ZIEBER, DR THADDEUS Hair Consulting Unavailable SHAMMO, DIVYA Consulting Unavailable ROBBIE ., YAYO Admitting Unavailable SHAMMO, DIVYA Primary Care Unavailable DIANA URIOSTEGUI Consulting Unavailable ROBBIE ., YAYO Attending Unavailable SAMSA ., LEE ANN Consulting Unavailable AHDOOT, JAUN LUIS Consulting Unavailable JUAN PABLO COLEMAN Consulting Unavailable TROTTI, GIROLAMO Consulting Unavailable KERRI BRYANT Consulting Unavailable SHAIKH Michaelle SKELTON Consulting Unavailable EMILE DOWNS Consulting Unavailable LISSA ARTEAGA Consulting Unavailable HUMAIRA GOINS Consulting Unavailable SISTER, TONNY Consulting Unavailable ROBBIE ., YAYO Consulting Unavailable NEWATIA, GABRIELLA Consulting Unavailable MYCHAL STOREY Consulting Unavailable LOUISE POLLOCK Consulting Unavailable ARTUR ZARATE Consulting Unavailable SYLWIA CLEMENT Consulting Unavailable RAQUEL SHETH Admitting Unavailable ABDELRAHMAN, DR TOMPKINS Primary Care Unavailable ROBBIE II, LBOSSOM Consulting Unavailable RAQUEL SHETH Attending Unavailable RAQUEL SHETH Consulting Unavailable DIAB ., MIKE Consulting Unavailable NEITLICHKAYDEN Consulting Unavailable RBOBIE II, BLOSSOM Consulting Unavailable SHAMMO, DIVYA Primary Care Unavailable RAQUEL SHETH Attending Unavailable RAQUEL SHETH Admitting Unavailable RAQUEL SHETH Consulting Unavailable KENTON CLAROS Consulting Unavailable BRAVO MORFIN Attending Unavailable CHOLO AMADOR Attending Unavailable CHOLO AMADOR Attending Unavailable ANGIE BAILEY Attending Unavailable BRAVO MORFIN Attending Unavailable Problems Active Problems Problem Classification Problem Date Documented Da te Episodic/Chronic Abdominal pain (5 sources) Unspecified abdominal pain; Translations: [Right lower quadrant pain] Onset: 08-20-2022 Episodic Acute and unspecified renal failure (1 source) Acute kidney failure, unspecified; Translations: [ACUTE KIDNEY FAILURE UNSPECIFIED] Onset: 10-12-2022 Episodic Acute myocardial infarction (1 source) Non-ST elevation (NSTEMI) myocardial infarction; Translations: [NON-ST ELEVATION MYOCARDIAL INFARCT] Onset: 10-12-2022 Chronic Anxiety disorders (1 source) Anxiety disorder, unspecified; Translations: [ANXIETY DISORDER UNSPECIFIED] Onset: 10-12-2022 Chronic Appendicitis and other appendiceal conditions (1 source) Unspecified acute appendicitis; Translations: [UNSPECIFIED ACUTE APPENDICITIS] Onset: 08-24-2022 Episodic Aspiration pneumonitis; food/vomitus (1 source) Pneumonitis due to inhalation of food and vomit; Translations: [PNEUMONITIS D/T INHAL FOOD AND VOMIT] Onset: 10-12-2022 Episodic Cardiac dysrhythmias (1 source) Unspecified atrial fibrillation; Translations: [UNSPECIFIED ATRIAL FIBRILLATION] Onset: 10-12-2022 Chronic Chronic obstructive pulmonary disease and bronchiectasis (1 source) Chronic obstructive pulmonary disease, unspecified; Translations: [COPD UNSPECIFIED] Onset: 10-12-2022 Chronic Congestive heart failure; nonhypertensive (4 sources) Unspecified diastolic (congestive) heart failure; Translations: [Heart failure, unspecified] Onset: 09-26-2022 Chronic Diabetes mellitus without complication (1 source) Hyperglycemia, unspecified; Translations: [HYPERGLYCEMIA UNSPECIFIED] Onset: 10-12-2022 Episodic Disorders of lipid metabolism (4 sources) Hyperlipidemia, unspecified; Translations: [HYPERLIPIDEMIA UNSPECIFIED] Onset: 09-22-2022 Chronic Diverticulosis and diverticulitis (1 source) Diverticulosis of large intestine without perforation or abscess without bleeding; Translations: [DVRTCLOS LG INT NO PERF/ABSC W/O BL] Onset: 09-26-2022 Chronic E Codes: Adverse effects of medical drugs (1 source) Adverse effect of loop [high-ceiling] diuretics, initial encounter; Translations: [ADVRS EFF LOOP HI-CEIL DIURETC INIT] Onset: 10-12-2022 Episodic E Codes: Place of occurrence (1 source) Unspecified place in hospital as the place of occurrence of the external cause; Translations: [UNS PLACE HOSP PLACE OCCUR EXT CAUS] Onset: 10-12-2022 Episodic Essential hypertension (3 sources) Essential (primary) hypertension; Translations: [ESSENTIAL PRIMARY HYPERTENSION] Onset: 09-15-2022 Chronic Fluid and electrolyte disorders (2 sources) Hypokalemia; Translations: [Dehydration] Onset: 09-15-2022 Episodic Hypertension with complications and secondary hypertension (1 source) Hypertensive heart disease with heart failure; Translations: [HTN HEART DISEASE W/HEART FAIL] Onset: 10-12-2022 Chronic Mood disorders (1 source) Mood disorders; Translations: [DEPRESSION UNSPECIFIED] Onset: 10-12-2022 Nausea and vomiting (1 source) Nausea with vomiting, unspecified; Translations: [NAUSEA WITH VOMITING UNSPECIFIED] Onset: 09-15-2022 Episodic Noninfectious gastroenteritis (1 source) Noninfective gastroenteritis and colitis, unspecified; Translations: [NONINFECTIVE GE AND COLITIS UNS] Onset: 09-15-2022 Episodic Other aftercare (1 source) Other assisted (current) drug therapy; Translations: [OTH RESIDENTIAL CURRENT DRUG THERAPY] Onset: 10-12-2022 Episodic Other gastrointestinal disorders (1 source) Personal history of other diseases of the digestive system; Translations: [PERSONAL HX OTH DZ DIGESTIVE SYSTEM] Onset: 10-12-2022 Episodic Other hematologic conditions (1 source) Other specified abnormalities of plasma proteins; Translations: [OTH SPEC ABNORM PLASMA PROTEINS] Onset: 10-12-2022 Episodic Other hematologic conditions (1 source) Personal history of diseases of the blood and blood-forming organs and certain disorders involving the immune mechanism; Translations: [PERS HX DZ BLD/BLD-FRM ORG IMMN MCH] Onset: 10-12-2022 Episodic Other injuries and conditions due to external causes (1 source) Personal history of (healed) traumatic fracture; Translations: [PERSONAL HX HEALED TRAUMATIC FX] Onset: 10-12-2022 Episodic Other liver diseases (1 source) Abnormal levels of other serum enzymes; Translations: [ABNORMAL LEVELS OTHER SERUM ENZYMES] Onset: 09-24-2022 Episodic Other lower respiratory disease (1 source) Chest pain on breathing; Translations: [CHEST PAIN ON BREATHING] Onset: 09-24-2022 Episodic Residual codes; unclassified (1 source) Acquired absence of other specified parts of digestive tract; Translations: [ACQ ABSENCE OTH PART DIGESTV TRACT] Onset: 10-12-2022 Episodic Residual codes; unclassified (1 source) Family history of malignant neoplasm of breast; Translations: [FAMILY HX MALIG NEOPLASM OF BREAST] Onset: 10-12-2022 Episodic Residual codes; unclassified (1 source) Family history of diabetes mellitus; Translations: [FAMILY HISTORY OF DIABETES MELLITUS] Onset: 10-12-2022 Episodic Residual codes; unclassified (1 source) Family history of malignant neoplasm of ovary; Translations: [FAM HX MALIGNANT NEOPLASM OVARY] Onset: 10-12-2022 Episodic Residual codes; unclassified (1 source) Family history of ischemic heart disease and other diseases of the circulatory system; Translations: [FAM HX ISCHEMIC HRT DZ OTH DZ CIRC] Onset: 10-12-2022 Episodic Residual codes; unclassified (1 source) Family history of stroke; Translations: [FAMILY HISTORY OF STROKE] Onset: 10-12-2022 Episodic Residual codes; unclassified (1 source) Family history of other endocrine, nutritional and metabolic diseases; Translations: [FAM HX OTH ENDOCRN NUTRIT METAB DZ] Onset: 10-12-2022 Episodic Respiratory failure; insufficiency; arrest (adult) (4 sources) Acute respiratory failure, unspecified whether with hypoxia or hypercapnia; Translations: [Acute respiratory failure with hypoxia] Onset: 10-07-2022 Episodic Septicemia (except in labor) (2 sources) Sepsis, unspecified organism; Translations: [Severe sepsis without septic shock] Onset: 10-12-2022 Episodic Thyroid disorders (1 source) Thyrotoxicosis, unspecified without thyrotoxic crisis or storm; Translations: [THYROTOXICOS UNS NO THYROTOX CRISIS] Onset: 10-12-2022 Chronic Unclassified (1 source) ACIDOSIS UNSPECIFIED; Translations: [ACIDOSIS UNSPECIFIED] Onset: 10-12-2022 Unclassified (1 source) CONTACT W/AND (SUSP) EXPOS COVID-19; Translations: [CONTACT W/AND (SUSP) EXPOS COVID-19] Onset: 08-24-2022 Unclassified (1 source) Other ventricular tachycardia; Translations: [Other ventricular tachycardia] Onset: 11-25-2022 Past or Other Problems Problem Classification Problem Date Documented Date Episodic/Chronic Other screening for suspected conditions (not mental disorders or infectious disease) (6 sources) Encounter for screening for malignant neoplasm of colon; Translations: [Abnormal electrocardiogram [ECG] [EKG]] Onset: 09-23-2022 Episodic Unclassified (1 source) Other ventricular tachycardia; Translations: [Other ventricular tachycardia] Onset: 11-25-2022 Results Test Name Value Interpretation Reference Range Facility Office Visiton 04-18-2023 Follow-up visit [id number] Shahida Mirza 1970 F Date Provider Department Center 04/18/2023 BRAVO DALEY Family History Problem Relation Age of Onset Other Mother Coronary artery disease Father Other Father Family Status - Relation Status Age at Mother Father Level of Service:24147 [place] OFFICE/OUTPATIENT ESTABLISHED MOD MDM 30-39 MIN Normal [facility] Orders Onlyon 04-18-2023 Orders Only [id number] Shahida Mirza 1970 F Date Provider Department Center 04/18/2023 OTONIEL FOY Family History Problem Relation Age of Onset Other Mother Coronary artery disease Father Other Father Family Status - Relation Status Age at Mother Father Normal [facility] Office Visiton 03-07-2023 Follow-up visit [id number] Shahida Mirza 1970 F Date Provider Department Center 03/07/2023 BRAVO DALEY Family History Problem Relation Age of Onset Other Mother Coronary artery disease Father Other Father Family Status - Relation Status Age at Mother Father Level of Service:81221 [place] OFFICE/OUTPATIENT NEW HIGH MDM 60-74 MINUTES Normal [facility] Office Visiton 01-09-2023 Follow-up visit [id number] Shahida Mirza 1970 F Date Provider Department Center 01/09/2023 1596-CHOLO AMADOR SHASHANK [facility] No family history on file Level of Service:31162 [place] OFFICE/OUTPATIENT ESTABLISHED MOD MDM 30-39 MIN Normal [facility] Office Visiton 11-25-2022 Follow-up visit [id number] Shahida Mirza 1970 F Date Provider Department Center 11/25/2022 159Tracie-CHOLO AMADOR CARD [facility] No family history on file Level of Service:58837 [place] OFFICE/OUTPATIENT ESTABLISHED MOD MDM 30-39 MIN Normal [facility] 37on 10-28-2022 37 -Weigh yourself ai y, if you gain more than 2 Ibs in one day or 5 Ibs in 1 week take Lasix for 3 days and let us know -Start Farxiga 10 mg daily -Stop taking Losartan-hydrochloroth iazide -Start Losartan 100 mg daily -Check labs in 1 week after starting Farxiga [facility] Office Visiton 10-28-2022 Follow-up visit [id number] Shahida Mirza 1970 F Date Provider Department Center 10/28/2022 [id number] BAILEY [facility] No family history on file Level of Service:10971 [place] OFFICE/OUTPATIENT ESTABLISHED MOD MDM 30-39 MIN Reason for Visit and Comments: New Patient [632] - New pt here for Hospital Follow up Holter motion results Normal [facility] BNPon 10-09-2022 Natriuretic peptide B (Bld) [Mass/Vol] 37172.0 pg/mL Critically high <=900.0 [facility] Comment on above: Performed By: #### M G, BNP, CMP #### [facility] [address] [address] [address] Celina Venegas CBC AUTO DIFFon 10-09-2022 BASO # 0.0 103/ul Normal 0.0-0.1 [facility] Comment on above: Performed By: #### H STROPN #### [facility] [address] [address] [address] Celina Venegas Basophils/100 WBC (Bld) 0.1 % Critically low 0.2-2.0 [facility] Comment on above: Performed By: #### H STROPN #### [facility] [address] [place] [address] Dr. Celina Venegas EO # 0.0 103/ul Normal 0.0-0.7 [facility] Comment on above: Performed By: #### H STROPN #### [facility] [address] [place] [address] Dr. Celina Venegas Eosinophils/100 WBC (Bld) 0.1 % Critically low 0.9-7.0 [facility] Comment on above: Performed By: #### H STROPN #### [facility] [address] [place] [address] Dr. Celina Venegas Erythrocyte distribution width (RBC) [Ratio] 14.9 % Normal 11.0-15.0 [facility] Comment on above: Performed By: #### H STROPN #### [facility] [address] [place] [address] Dr. Celina Venegas Hematocrit (Bld) [Volume fraction] 28.5 % Critically low 36.0-48.0 [facility] Comment on above: Performed By: #### H STROPN #### [facility] [address] [place] [address] Dr. Celina Venegas Hemoglobin (Bld) [Mass/Vol] 9.1 g/dL Critically low 12.0-16.0 [facility] Comment on above: Performed By: #### H STROPN #### [facility] [address] [place] [address] Dr. Celina Venegas IG # 0.08 10e3/ul Critically high 0.00-0.03 [facility] Comment on above: Performed By: #### H STROPN #### [facility] [address] [place] [address] Dr. Celina Venegas IG % 1.2 % Critically high 0.0-0.5 [facility] Comment on above: Performed By: #### H STROPN #### [facility] [address] [place] [address] Dr. Celina Venegas LYMPH # 1.8 103/ul Normal 1.2-3.8 [facility] Comment on above: Performed By: #### H STROPN #### [facility] [address] [place] [address] Dr. Celina Venegas Lymphocytes/100 WBC (Bld) 26.7 % Normal 20.5-60.0 [facility] Comment on above: Performed By: #### H STROPN #### [facility] [address] [place] [address] Dr. Celina Venegas MANUAL DIFF REQ NO Normal [facility] Comment on above: Performed By: #### H STROPN #### [facility] [address] [place] [address] Dr. Celina Venegas MCH (RBC) [Entitic mass] 25.0 pg Critically low 26.7-34.0 [facility] Comment on above: Performed By: #### H STROPN #### [facility] [address] [place] [address] Dr. Celina Venegas MCHC (RBC) [Mass/Vol] 31.9 g/dL Normal 29.9-35.2 [facility] Comment on above: Performed By: #### H STROPN #### [facility] [address] [place] [address] Dr. Celina Venegas MCV (RBC) [Entitic vol] 78.3 fL Critically low 81.0-99.0 [facility] Comment on above: Performed By: #### H STROPN #### [facility] [address] [place] [address] Dr. Celina Venegas MONO # 0.4 103/ul Normal 0.3-0.8 [facility] Comment on above: Performed By: #### H STROPN #### [facility] [address] [place] [address] Dr. Celina Venegas Monocytes/100 WBC (Bld) 5.5 % Normal 1.7-12.0 [facility] Comment on above: Performed By: #### H STROPN #### [facility] [address] [place] [address] Dr. Celina Venegas NEUT # 4.5 103/ul Normal 1.4-6.5 [facility] Comment on above: Performed By: #### H STROPN #### [facility] [address] [address] [address] Celina Venegas Neutrophils/100 WBC (Bld) 66.4 % Normal 43.0-75.0 [facility] Comment on above: Performed By: #### H STROPN #### [facility] [address] [address] [address] Celina Venegas Platelet mean volume (Bld) [Entitic vol] 10.4 fL Normal 9.5-13.5 [facility] Comment on above: Performed By: #### H STROPN #### [facility] [address] [place] [address] Dr. Celina Venegas PLT 219 103/ul Normal 150-450 [facility] Comment on above: Performed By: #### H STROPN #### [facility] [address] [place] [address] Dr. Celina Venegas RBC 3.64 106/ul Critically low 4.20-5.40 [facility] Comment on above: Performed By: #### H STROPN #### [facility] [address] [place] [address] Dr. Celina Venegas WBC 6.8 103/ul Normal 4.0-11.0 [facility] Comment on above: Performed By: #### H STROPN #### [facility] [address] [place] [address] Dr. Celina Venegas MAGNESIUMon 10-09-2022 Magnesium [Mass/Vol] 1.7 mg/dL Critically low 1.8-2.4 [facility] Comment on above: Performed By: #### M G, BNP, CMP #### [facility] [address] [place] [address] Dr. Celina Venegas POINT OF CARE GLUCOSEon 09-13 Glucose [Mass/Vol] 120 mg/dL Critically high 74-106 T [facility] Comment on above: Performed By: #### H STROPN #### [facility] [address] [address] [address] Celina Venegas POTASSIUMon 10-09-2022 Potassium [Moles/Vol] 3.6 mmol/L Normal 3.5-5.1 [facility] Comment on above: Performed By: #### M G, BNP, CMP #### [facility] [address] [place] [address] Dr. Celina Venegas PROF 14(COMP METB)on 023 Albumin [Mass/Vol] 2.6 g/dL Critically low 3.4-5.0 [facility] Comment on above: Performed By: #### M G, BNP, CMP #### [facility] [address] [place] [address] Dr. Celina Venegas Albumin/Globulin [Mass ratio] 0.8 {ratio} Normal [facility] Comment on above: Performed By: #### M G, BNP, CMP #### [facility] [address] [place] [address] Dr. Celina Venegas ALP [Catalytic activity/Vol] 112 U/L Normal 46-116 [facility] Comment on above: Performed By: #### M G, BNP, CMP #### [facility] [address] [place] [address] Dr. Celina Venegas ALT [Catalytic activity/Vol] 16 U/L Normal 14-59 [facility] Comment on above: Performed By: #### M G, BNP, CMP #### [facility] [address] [address] [address] Celina Venegas Anion gap [Moles/Vol] 10.7 mmol/L Normal [facility] Comment on above: Performed By: #### M G, BNP, CMP #### [facility] [address] [address] [address] Celina Venegas AST [Catalytic activity/Vol] 13 U/L Critically low 15-37 [facility] Comment on above: Performed By: #### M G, BNP, CMP #### [facility] [address] [place] [address] Dr. Cleina Venegas Bilirubin [Mass/Vol] 0.3 mg/dL Normal 0.2-1.0 [facility] Comment on above: Performed By: #### M G, BNP, CMP #### [facility] [address] [address] [address] Celina Venegas Calcium [Mass/Vol] 8.6 mg/dL Normal 8.5-10.1 [facility] Comment on above: Performed By: #### M G, BNP, CMP #### [facility] [address] [place] [address] Dr. Celina Venegas Chloride [Moles/Vol] 109 mmol/L Critically high 98-107 [facility] Comment on above: Performed By: #### M G, BNP, CMP #### [facility] [address] [place] [address] Dr. Celina Venegas CO2 [Moles/Vol] 26.5 mmol/L Normal 21.0-32.0 [facility] Comment on above: Performed By: #### M G, BNP, CMP #### [facility] [address] [place] [address] Dr. Celina Venegas Creatinine [Mass/Vol] 0.88 mg/dL Normal 0.55-1.02 [facility] Comment on above: Performed By: #### M G, BNP, CMP #### [facility] [address] [place] [address] Dr. Celina Venegas EGFR-AF GERMAN >60 Normal >=60 [facility] Comment on above: Performed By: #### M G, BNP, CMP #### [facility] [address] [place] [address] Dr. Celina Venegas EGFR-NON AF GERMAN >60 Normal >=60 [facility] Comment on above: Performed By: #### M G, BNP, CMP #### [facility] [address] [place] [address] Dr. Celina Venegas Globulin (S) [Mass/Vol] 3.4 g/dL Normal [facility] Comment on above: Performed By: #### M G, BNP, CMP #### [facility] [address] [place] [address] Dr. Celina Venegas Glucose [Mass/Vol] 84 mg/dL Normal 74-[address] [facility] Comment on above: Performed By: #### M G, BNP, CMP #### [facility] [address] [place] [address] Dr. Celina Venegas Potassium [Moles/Vol] 2.2 mmol/L Critically low 3.5-5.1 [facility] Comment on above: Performed By: #### M G, BNP, CMP #### [facility] [address] [place] [address] Dr. Celina Venegas Protein [Mass/Vol] 6.0 g/dL Critically low 6.4-8.2 [facility] Comment on above: Performed By: #### M G, BNP, CMP #### [facility] [address] [place] [address] Dr. Celina Venegas Sodium [Moles/Vol] 142 mmol/L Normal 136-145 [facility] Comment on above: Performed By: #### M G, BNP, CMP #### [facility] [address] [place] [address] Dr. Celina Venegas Urea nitrogen [Mass/Vol] 24.0 mg/dL Critically high 7.0-18.0 [facility] Comment on above: Performed By: #### M G, BNP, CMP #### [facility] [address] [place] [address] Dr. Celina Venegas Urea nitrogen/Creatinine [Mass ratio] 27.3 mg/mg Normal [facility] Comment on above: Performed By: #### M G, BNP, CMP #### [facility] [address] [place] [address] Dr. Celina Venegas PROTIMEon 10-09-2022 INR Coag (PPP) [Relative time] 1.04 {INR} Normal [facility] Comment on above: Performed By: #### B LDCX2 #### [facility] [address] [place] [address] Dr. Celina Venegas INR GUIDELINES SEE BELOW Normal [facility] Comment on above: Result Comment: CAESAR RED INR: 2.0 - 3.0 CONDITIONS NOT LISTED BELOW 2.5 - 3.5 FOR PROSTHETIC HEART VALVE REPLACEMENT 2.5 - 3.5 RECURRENT THROMBOSIS Performed By: #### B LDCX2 #### [facility] [address] [place] [address] Dr. Celina Venegas PT Coag (PPP) [Time] 11.0 s Normal 9.0-11.6 [facility] Comment on above: Performed By: #### B LDCX2 #### [facility] [address] [place] [address] Dr. Celina Venegas PTTon 10-09-2022 aPTT Coag (Bld) [Time] 23.9 s Normal 22.3-36.2 [facility] Comment on above: Performed By: #### B LDCX2 #### [facility] [address] [place] [address] Dr. Celina Venegas BNPon 10-08-2022 Natriuretic peptide B (Bld) [Mass/Vol] 80260.0 pg/mL Critically high <=900.0 [facility] Comment on above: Performed By: #### P REG #### [facility] [address] [place] [address] Dr. Celina Venegas CBC AUTO DIFFon 10-08-2022 BASO # 0.0 103/ul Normal 0.0-0.1 [facility] Comment on above: Performed By: #### B LDCX1 #### [facility] [address] [place] [address] Dr. Celina Venegas Basophils/100 WBC (Bld) 0.1 % Critically low 0.2-2.0 [facility] Comment on above: Performed By: #### B LDCX1 #### [facility] [address] [place] [address] Dr. Celina Venegas EO # 0.0 103/ul Normal 0.0-0.7 [facility] Comment on above: Performed By: #### B [id number] #### [facility] [address] [place] [address] Dr. Celina Venegas Eosinophils/100 WBC (Bld) 0.0 % Critically low 0.9-7.0 [facility] Comment on above: Performed By: #### B [id number] #### [facility] [address] [place] [address] Dr. Celina Venegas Erythrocyte distribution width (RBC) [Ratio] 14.6 % Normal 11.0-15.0 [facility] Comment on above: Performed By: #### B [id number] #### [facility] [address] [place] [address] Dr. Celina Venegas Hematocrit (Bld) [Volume fraction] 26.6 % Critically low 36.0-48.0 [facility] Comment on above: Performed By: #### B [id number] #### [facility] [address] [place] [address] Dr. Celina Venegas Hemoglobin (Bld) [Mass/Vol] 8.4 g/dL Critically low 12.0-16.0 [facility] Comment on above: Performed By: #### B [id number] #### [facility] [address] [place] [address] Dr. Celina Venegas IG # 0.03 10e3/ul Normal 0.00-0.03 [facility] Comment on above: Performed By: #### B [id number] #### [facility] [address] [place] [address] Dr. Celina Venegas IG % 0.4 % Normal 0.0-0.5 [facility] Comment on above: Performed By: #### B [id number] #### [facility] [address] [place] [address] Dr. Celina Venegas LYMPH # 0.7 103/ul Critically low 1.2-3.8 [facility] Comment on above: Performed By: #### B [id number] #### [facility] [address] [place] [address] Dr. Celina Venegas Lymphocytes/100 WBC (Bld) 10.3 % Critically low 20.5-60.0 [facility] Comment on above: Performed By: #### B [id number] #### [facility] [address] [place] [address] Dr. Celina Venegas MANUAL DIFF REQ NO Normal [facility] Comment on above: Performed By: #### B [id number] #### [facility] [address] [address] [address] Celina Venegas MCH (RBC) [Entitic mass] 25.2 pg Critically low 26.7-34.0 [facility] Comment on above: Performed By: #### B [id number] #### [facility] [address] [place] [address] Dr. Celina Venegas MCHC (RBC) [Mass/Vol] 31.6 g/dL Normal 29.9-35.2 [facility] Comment on above: Performed By: #### B [id number] #### [facility] [address] [place] [address] Dr. Celina Venegas MCV (RBC) [Entitic vol] 79.9 fL Critically low 81.0-99.0 [facility] Comment on above: Performed By: #### B [id number] #### [facility] [address] [place] [address] Dr. Celina Venegas MONO # 0.3 103/ul Normal 0.3-0.8 [facility] Comment on above: Performed By: #### B [id number] #### [facility] [address] [place] [address] Dr. Celina Venegas Monocytes/100 WBC (Bld) 4.9 % Normal 1.7-12.0 [facility] Comment on above: Performed By: #### B [id number] #### [facility] [address] [place] [address] Dr. Celina Venegas NEUT # 5.8 103/ul Normal 1.4-6.5 [facility] Comment on above: Performed By: #### B [id number] #### [facility] [address] [place] [address] Dr. Celina Venegas Neutrophils/100 WBC (Bld) 84.3 % Critically high 43.0-75.0 [facility] Comment on above: Performed By: #### B [id number] #### [facility] [address] [place] [address] Dr. Celina Venegas Platelet mean volume (Bld) [Entitic vol] 10.5 fL Normal 9.5-13.5 [facility] Comment on above: Performed By: #### B [id number] #### [facility] [address] [place] [address] Dr. Celina Venegas PLT 207 103/ul Normal 150-450 [facility] Comment on above: Performed By: #### B [id number] #### [facility] [address] [place] [address] Dr. Celina Venegas RBC 3.33 106/ul Critically low 4.20-5.40 [facility] Comment on above: Performed By: #### B [id number] #### [facility] [address] [place] [address] Dr. Celina Venegas WBC 6.9 103/ul Normal 4.0-11.0 [facility] Comment on above: Performed By: #### B [id number] #### [facility] [address] [place] [address] Dr. Celina Venegas MAGNESIUMon 10-08-2022 Magnesium [Mass/Vol] 1.8 mg/dL Normal 1.8-2.4 [facility] Comment on above: Performed By: #### P REG #### [facility] [address] [place] [address] Dr. Celina Venegas POINT OF CARE GLUCOSEon 09-13 Glucose [Mass/Vol] 180 mg/dL Critically high 74-106 [facility] Comment on above: Performed By: #### M G, BNP, CMP #### [facility] [address] [place] [address] Dr. Celina Venegas Glucose [Mass/Vol] 116 mg/dL Critically high 74-106 [facility] Comment on above: Performed By: #### M G, BNP, CMP #### [facility] [address] [place] [address] Dr. Celina Venegas PROF 14(COMP METB)on 023 Albumin [Mass/Vol] 2.4 g/dL Critically low 3.4-5.0 [facility] Comment on above: Performed By: #### P REG #### [facility] [address] [place] [address] Dr. Celina Venegas Albumin/Globulin [Mass ratio] 0.7 {ratio} Normal [facility] Comment on above: Performed By: #### P REG #### [facility] [address] [place] [address] Dr. Celina Venegas ALP [Catalytic activity/Vol] 124 U/L Critically high 46-116 [facility] Comment on above: Performed By: #### P REG #### [facility] [address] [place] [address] Dr. Celina Venegas ALT [Catalytic activity/Vol] 17 U/L Normal 14-59 [facility] Comment on above: Performed By: #### P REG #### [facility] [address] [place] [address] Dr. Celina Venegas Anion gap [Moles/Vol] 10.6 mmol/L Normal [facility] Comment on above: Performed By: #### P REG #### [facility] [address] [place] [address] Dr. Celina Venegas AST [Catalytic activity/Vol] 14 U/L Critically low 15-37 [facility] Comment on above: Performed By: #### P REG #### [facility] [address] [place] [address] Dr. Celina Venegas Bilirubin [Mass/Vol] 0.2 mg/dL Normal 0.2-1.0 [facility] Comment on above: Performed By: #### P REG #### [facility] [address] [place] [address] Dr. Celina Venegas Calcium [Mass/Vol] 9.1 mg/dL Normal 8.5-10.1 [facility] Comment on above: Performed By: #### P REG #### [facility] [address] [place] [address] Dr. Celina Venegas Chloride [Moles/Vol] 110 mmol/L Critically high 98-107 [facility] Comment on above: Performed By: #### P REG #### [facility] [address] [place] [address] Dr. Celina Venegas CO2 [Moles/Vol] 26.8 mmol/L Normal 21.0-32.0 [facility] Comment on above: Performed By: #### P REG #### [facility] [address] [place] [address] Dr. Celina Venegas Creatinine [Mass/Vol] 0.81 mg/dL Normal 0.55-1.02 [facility] Comment on above: Performed By: #### P REG #### [facility] [address] [address] [address] Celina Venegas EGFR-AF GERMAN >60 Normal >=60 [facility] Comment on above: Performed By: #### P REG #### [facility] [address] [place] [address] Dr. Celina Venegas EGFR-NON AF GERMAN >60 Normal >=60 [facility] Comment on above: Performed By: #### P REG #### [facility] [address] [place] [address] Dr. Celina Venegas Globulin (S) [Mass/Vol] 3.6 g/dL Normal [facility] Comment on above: Performed By: #### P REG #### [facility] [address] [place] [address] Dr. Celina Venegas Glucose [Mass/Vol] 145 mg/dL Critically high 74-106 T [facility] Comment on above: Performed By: #### P REG #### [facility] [address] [place] [address] Dr. Celina Venegas Potassium [Moles/Vol] 3.4 mmol/L Critically low 3.5-5.1 [facility] Comment on above: Performed By: #### P REG #### [facility] [address] [place] [address] Dr. Celina Venegas Protein [Mass/Vol] 6.0 g/dL Critically low 6.4-8.2 [facility] Comment on above: Performed By: #### P REG #### [facility] [address] [place] [address] Dr. Celina Venegas Sodium [Moles/Vol] 144 mmol/L Normal 136-145 [facility] Comment on above: Performed By: #### P REG #### [facility] [address] [address] [address] Celina Venegas Urea nitrogen [Mass/Vol] 20.0 mg/dL Critically high 7.0-18.0 [facility] Comment on above: Performed By: #### P REG #### [facility] [address] [address] [address] Celina Venegas Urea nitrogen/Creatinine [Mass ratio] 24.7 mg/mg Normal [facility] Comment on above: Performed By: #### P REG #### [facility] [address] [place] [address] Dr. Celina Venegas PROTIMEon 10-08-2022 INR Coag (PPP) [Relative time] 1.04 {INR} Normal [facility] Comment on above: Performed By: #### H STROPN #### [facility] [address] [place] [address] Dr. Celina Venegas INR GUIDELINES SEE BELOW Normal [facility] Comment on above: Result Comment: CAESAR RED INR: 2.0 - 3.0 CONDITIONS NOT LISTED BELOW 2.5 - 3.5 FOR PROSTHETIC HEART VALVE REPLACEMENT 2.5 - 3.5 RECURRENT THROMBOSIS Performed By: #### H STROPN #### [facility] [address] [place] [address] Dr. Celina Venegas PT Coag (PPP) [Time] 11.0 s Normal 9.0-11.6 [facility] Comment on above: Performed By: #### H STROPN #### [facility] [address] [place] [address] Dr. Celina Venegas PTTon 10-08-2022 aPTT Coag (Bld) [Time] 26.8 s Normal 22.3-36.2 [facility] Comment on above: Performed By: #### H STROPN #### [facility] [address] [place] [address] Dr. Celina Venegas XR CHEST 1 Von 10-08-2022 XR CHEST 1 V EXAM: XR CHEST 1 V HISTORY: SHORTNESS OF BREATH COMPARISON: 10/07/2022. TECHNIQUE: Chest X-ray, 1 view. FINDINGS: Support devices: Interval extubation. Lungs/pleura: No consolidation, effusion, or pneumothorax. Improved aeration within the lung bases with no significant remaining airspace disease. Heart and mediastinum: Normal contours. Bones: No acute abnormality identified. IMPRESSION: No active disease. Previously seen left basilar opacities have essentially resolved. Electronically authenticated by: MYCHAL STOREY Date: 2022-10-08 05:51 Normal [facility] BLOOD GASES BTYon 10-07-2022 02 MODE VENTILATOR Normal [facility] Comment on above: Performed By: #### M G, BNP, CMP #### [facility] [address] [place] [address] Dr. Celina Venegas ALLENS TEST Positive Normal [facility] Comment on above: Performed By: #### M G, BNP, CMP #### [facility] [address] [place] [address] Dr. Celina Venegas Base excess Calc (Bld) [Moles/Vol] -6.1000 mmol/L Critically low -2.0-2.0 [facility] Comment on above: Performed By: #### M G, BNP, CMP #### [facility] [address] [place] [address] Dr. Celina Venegas BIPAP PRESSURE Normal [facility] Comment on above: Performed By: #### M G, BNP, CMP #### [facility] [address] [place] [address] Dr. Celina Venegas CPAP Normal [facility] Comment on above: Performed By: #### M G, BNP, CMP #### [facility] [address] [place] [address] Dr. Celina Venegas FIO2 30.00 % Normal [facility] Comment on above: Performed By: #### M G, BNP, CMP #### [facility] [address] [place] [address] Dr. Celina Venegas HCO3 (Bld) [Moles/Vol] 20.2 mmol/L Critically low 22.0-26.0 [facility] Comment on above: Performed By: #### M G, BNP, CMP #### [facility] [address] [place] [address] Dr. Celina Venegas [facility] Comment on above: Performed By: #### M G, BNP, CMP #### [facility] [address] [place] [address] Dr. Celina Venegas MINUTE VOLUME Normal [facility] Comment on above: Performed By: #### M G, BNP, CMP #### [facility] [address] [address] [address] Celina Venegas Oxygen (Bld) [Partial pressure] 102.0 mm[Hg] Critically high 80.0-100.0 [facility] Comment on above: Performed By: #### M G, BNP, CMP #### [facility] [address] [place] [address] Dr. Celina Venegas Oxygen saturation in Blood 97.8 % Normal 95.0-100.0 [facility] Comment on above: Performed By: #### M G, BNP, CMP #### [facility] [address] [place] [address] Dr. Celina Venegas PCO2 40.9 mmHg Normal 35.0-45.0 [facility] Comment on above: Performed By: #### M G, BNP, CMP #### [facility] [address] [place] [address] Dr. Celina Veneags PEEP 5 [facility] Comment on above: Performed By: #### M G, BNP, CMP #### [facility] [address] [place] [address] Dr. Celina Venegas pH (Bld) 7.303 [pH] Critically low 7.350-7.450 [facility] Comment on above: Performed By: #### M G, BNP, CMP #### [facility] [address] [place] [address] Dr. Celina Venegas [facility] Comment on above: Performed By: #### M G, BNP, CMP #### [facility] [address] [address] [address] Celina Venegas [facility] Comment on above: Performed By: #### M G, BNP, CMP #### [facility] [address] [address] [address] Celina Venegas PUNCTURE SITE RR Normal [facility] Comment on above: Performed By: #### M G, BNP, CMP #### [facility] [address] [address] [address] Celina Venegas RATE 16 bpm Normal [facility] Comment on above: Performed By: #### M G, BNP, CMP #### [facility] [address] [place] [address] Dr. Celina Venegas VENT MODE A/C [facility] Comment on above: Performed By: #### M G, BNP, CMP #### [facility] [address] [place] [address] Dr. Celina Venegas VT 400 ML [facility] Comment on above: Performed By: #### M G, BNP, CMP #### [facility] [address] [place] [address] Dr. Celina Venegas Base excess Calc (Bld) [Moles/Vol] -2.5000 mmol/L Critically low -2.0-2.0 [facility] Comment on above: Performed By: #### M G, BNP, CMP #### [facility] [address] [place] [address] Dr. Celina Venegas HCO3 (Bld) [Moles/Vol] 23.3 mmol/L Normal 22.0-26.0 [facility] Comment on above: Performed By: #### M G, BNP, CMP #### [facility] [address] [place] [address] Dr. Celina Venegas Oxygen (Bld) [Partial pressure] 97.7 mm[Hg] Normal 80.0-100.0 [facility] Comment on above: Performed By: #### M G, BNP, CMP #### [facility] [address] [place] [address] Dr. Celina Venegas Oxygen saturation in Blood 98.0 % Normal 95.0-100.0 [facility] Comment on above: Performed By: #### M G, BNP, CMP #### [facility] [address] [address] [address] Celina Venegas PCO2 43.6 mmHg Normal 35.0-45.0 [facility] Comment on above: Performed By: #### M G, BNP, CMP #### [facility] [address] [address] [address] Celina Venegas pH (Bld) 7.336 [pH] Critically low 7.350-7.450 [facility] Comment on above: Performed By: #### M G, BNP, CMP #### [facility] [address] [place] [address] Dr. Celina Venegas CBC AUTO DIFFon 10-07-2022 BASO # 0.0 103/ul Normal 0.0-0.1 [facility] Comment on above: Performed By: #### C BC #### [facility] [address] [place] [address] Dr. Celina Venegas Basophils/100 WBC (Bld) 0.0 % Critically low 0.2-2.0 [facility] Comment on above: Performed By: #### C BC #### [facility] [address] [place] [address] Dr. Celina Venegas EO # 0.0 103/ul Normal 0.0-0.7 [facility] Comment on above: Performed By: #### C BC #### [facility] [address] [place] [address] Dr. Celina Venegas Eosinophils/100 WBC (Bld) 0.0 % Critically low 0.9-7.0 [facility] Comment on above: Performed By: #### C BC #### [facility] [address] [place] [address] Dr. Celina Venegas Erythrocyte distribution width (RBC) [Ratio] 14.6 % Normal 11.0-15.0 [facility] Comment on above: Performed By: #### C BC #### [facility] [address] [place] [address] Dr. Celina Venegas Hematocrit (Bld) [Volume fraction] 31.7 % Critically low 36.0-48.0 [facility] Comment on above: Performed By: #### C BC #### [facility] [address] [address] [address] Celina Venegas Hemoglobin (Bld) [Mass/Vol] 9.5 g/dL Critically low 12.0-16.0 [facility] Comment on above: Performed By: #### C BC #### [facility] [address] [address] [address] Celina Venegas IG # 0.04 10e3/ul Critically high 0.00-0.03 [facility] Comment on above: Performed By: #### C BC #### [facility] [address] [address] [address] Celina Venegas IG % 0.5 % Normal 0.0-0.5 [facility] Comment on above: Performed By: #### C BC #### [facility] [address] [address] [address] Celina Venegas LYMPH # 0.8 103/ul Critically low 1.2-3.8 [facility] Comment on above: Performed By: #### C BC #### [facility] [address] [address] [address] Celina Venegas Lymphocytes/100 WBC (Bld) 10.1 % Critically low 20.5-60.0 [facility] Comment on above: Performed By: #### C BC #### [facility] [address] [address] [address] Celina Venegas MANUAL DIFF REQ NO Normal [facility] Comment on above: Performed By: #### C BC #### [facility] [address] [address] [address] Celina Venegas MCH (RBC) [Entitic mass] 24.2 pg Critically low 26.7-34.0 [facility] Comment on above: Performed By: #### C BC #### [facility] [address] [address] [address] Celina Venegas MCHC (RBC) [Mass/Vol] 30.0 g/dL Normal 29.9-35.2 [facility] Comment on above: Performed By: #### C BC #### [facility] [address] [address] [address] Celina Venegas MCV (RBC) [Entitic vol] 80.7 fL Critically low 81.0-99.0 [facility] Comment on above: Performed By: #### C BC #### [facility] [address] [address] [address] Celina Venegas MONO # 0.1 103/ul Critically low 0.3-0.8 [facility] Comment on above: Performed By: #### C BC #### [facility] [address] [address] [address] Celina Venegas Monocytes/100 WBC (Bld) 1.4 % Critically low 1.7-12.0 [facility] Comment on above: Performed By: #### C BC #### [facility] [address] [place] [address] Dr. Celina Venegas NEUT # 6.8 103/ul Critically high 1.4-6.5 [facility] Comment on above: Performed By: #### C BC #### [facility] [address] [address] [address] Celina Venegas Neutrophils/100 WBC (Bld) 88.0 % Critically high 43.0-75.0 [facility] Comment on above: Performed By: #### C BC #### [facility] [address] [address] [address] Celina Venegas Platelet mean volume (Bld) [Entitic vol] 10.5 fL Normal 9.5-13.5 [facility] Comment on above: Performed By: #### C BC #### [facility] [address] [address] [address] Celina Venegas PLT 194 103/ul Normal 150-450 [facility] Comment on above: Performed By: #### C BC #### [facility] [address] [address] [address] Celina Venegas RBC 3.93 106/ul Critically low 4.20-5.40 [facility] Comment on above: Performed By: #### C BC #### [facility] [address] [address] [address] Celina Venegas WBC 7.8 103/ul Normal 4.0-11.0 [facility] Comment on above: Performed By: #### C BC #### [facility] [address] [place] [address] Dr. Celina Venegas CULTURE BLOODon 10-07-2022 Microscopic examination of blood, culture Culture Observations: NO GROWTH AT 5 DAYS. Normal [facility] Comment on above: Performed By: #### H STROPN #### [facility] [address] [place] [address] Dr. Celina Venegas Microscopic examination of blood, culture Culture Observations: NO GROWTH AT 5 DAYS. Normal [facility] Comment on above: Performed By: #### H STROPN #### [facility] [address] [place] [address] Dr. Celina Venegas ECHOCARDIO M/2D COMPLETEon 0 10-07-2022 ECHOCARDIO M/2D COMPLETE Patient: SHAHIDA MIRZA Exam Date: 10/07/2022 : 1970 Gender:F Ordering : SHAIKH Juliana SKELTON . Admission #: [id number] Family : DIVYA ACOSTA RUG CLIPPER-C Order #: [id number] CLICK HERE TO VIEW EXAM ECHOCARDIOGRAM REPORT PROCEDURE: CARDIO PULMONARY ECHOCARDIO M/2D COMP INDICATIONS: Respiratory failure, elevated TROP and BNP, CHF, hypertension COMPARISON: None. DESCRIPTION: COMPLETE ECHOCARDIOGRAM Real-time transthoracic echocardiography with 2D, M-mode, spectral and color flow Doppler performed. QUALITY: Technically difficult due to patients condition. LEFT VENTRICLE: Normal chamber size. Normal left ventricular wall thickness. Systolic function appears normal. Poor sound transmission precludes accurate wall motion analysis. LV EF: Normal left ventricular ejection fraction, (>55%). DIASTOLIC: Normal diastolic function. ATRIAL SEPTUM: LEFT ATRIUM: Normal chamber size. RIGHT ATRIUM: Normal chamber size. RIGHT VENTRICLE: Normal chamber size. Normal right ventricular systolic function. TRICUSPID VALVE: Normal mobility and thickness. No stenosis with trivial regurgitation. MITRAL VALVE: Normal mobility and thickness. No evidence of mitral valve stenosis. Mild mitral annular calcification. Trivial mitral regurgitation. AORTIC VALVE: Normal trileaflet appearance. No visible sclerosis. Normal leaflet mobility. No evidence of aortic valve stenosis. Trivial aortic regurgitation. Increased velocities across the aortic valve related to increased LVOT velocities. AORTIC ROOT: Normal diameter and appearance. PULMONIC VALVE: Normal thickness and mobility. No stenosis. No regurgitation. PERICARDIUM: No evidence of pericardial effusion. IVC: IVC is normal in size with no collapse. PLEURA: CONCLUSION: 1. Technically difficult study with poor sound transmission. 2. Normal ventricular systolic function. LVEF appears to be 60-65%. 3. No significant valvular dysfunction. 4. Unable to assess right sided pressures due to lack of measurable tricuspid regurgitation. Adult Echocardiography Procedure Report Left Ventricle Left Atrium LA Volume Index (2D A2C): 47.84 ml, 47.84 ml Mitral Valve Right Ventricle Aorta Aortic Valve AoV Area (Peak Skip): 1.57 cm2, 1.57 cm2 Tricuspid Valve Pulmonic Valve Peak Velocity: 1.89 m/s, 1.65 m/s Peak Gradient: 12.61 mm[Hg] Right Atrium Dictated by: Alcides Ramirez M.D. on 10/07/2022 at 17:43 Approved by: Alcides Ramirez M.D. on 10/07/2022 at 17:48 Normal [facility] FREE T3on 10-07-2022 FREE T3 3.12 pg/mlL Normal 2.18-3.98 [facility] Comment on above: Performed By: #### B [id number] #### [facility] Laboratory [address] [place] [address] Dr. Celina Venegas FREE T4on 10-07-2022 Free T4 [Mass/Vol] 1.63 ng/dL Critically high 0.76-1.46 [facility] Comment on above: Performed By: #### H STROPN #### [facility] [address] [address] [address] Celina Venegas GLYCOHEMOGLOBIN A1Con 2022 ADA RECOMMENDATION SEE BELOW Normal [facility] Comment on above: Result Comment: ADA RECOMMENDED LIMIT 4.0 - 6.0 ADA THERAPEUTIC TARGET < 7.0 ACTION SUGGESTED > 7.0 Performed By: #### B [id number] #### [facility] [address] [place] [address] Dr. Celina Venegas Glucose [Mass/Vol] 117 mg/dL Normal [facility] Comment on above: Performed By: #### B [id number] #### [facility] [address] [address] [address] Celina Venegas HbA1c (Bld) [Mass fraction] 5.7 % Normal 4.5-6.2 [facility] Comment on above: Performed By: #### B [id number] #### [facility] [address] [address] [address] Celina Venegas MAGNESIUMon 10-07-2022 Magnesium [Mass/Vol] 1.5 mg/dL Critically low 1.8-2.4 [facility] Comment on above: Performed By: #### M G, BNP, CMP #### [facility] [address] [place] [address] Dr. Celina Venegas POINT OF CARE GLUCOSEon 09-13 Glucose [Mass/Vol] 247 mg/dL Critically high 74-106 [facility] Comment on above: Performed By: #### M G, BNP, CMP #### [facility] [address] [place] [address] Dr. Celina Venegas Glucose [Mass/Vol] 152 mg/dL Critically high 74-106 [facility] Comment on above: Performed By: #### B [id number] #### [facility] [address] [place] [address] Dr. Celina Venegas PROF 14(COMP METB)on 023 Albumin [Mass/Vol] 2.5 g/dL Critically low 3.4-5.0 [facility] Comment on above: Performed By: #### M G, BNP, CMP #### [facility] [address] [place] [address] Dr. Celina Venegas Albumin/Globulin [Mass ratio] 0.6 {ratio} Normal [facility] Comment on above: Performed By: #### M G, BNP, CMP #### [facility] [address] [place] [address] Dr. Celina Venegas ALP [Catalytic activity/Vol] 167 U/L Critically high 46-116 [facility] Comment on above: Performed By: #### M G, BNP, CMP #### [facility] [address] [address] [address] Celina Venegas ALT [Catalytic activity/Vol] 22 U/L Normal 14-59 [facility] Comment on above: Performed By: #### M G, BNP, CMP #### [facility] [address] [address] [address] Celina Venegas Anion gap [Moles/Vol] 15.1 mmol/L Normal [facility] Comment on above: Performed By: #### M G, BNP, CMP #### [facility] [address] [address] [address] Celina Venegas AST [Catalytic activity/Vol] 26 U/L Normal 15-37 [facility] Comment on above: Performed By: #### M G, BNP, CMP #### [facility] [address] [place] [address] Dr. Celina Venegas Bilirubin [Mass/Vol] 0.2 mg/dL Normal 0.2-1.0 [facility] Comment on above: Performed By: #### M G, BNP, CMP #### [facility] [address] [address] [address] Celina Venegas Calcium [Mass/Vol] 8.2 mg/dL Critically low 8.5-10.1 Th [facility] Comment on above: Performed By: #### M G, BNP, CMP #### [facility] [address] [address] [address] Celina Venegas Chloride [Moles/Vol] 107 mmol/L Normal 98-107 [facility] Comment on above: Performed By: #### M G, BNP, CMP #### [facility] [address] [address] [address] Celina Venegas CO2 [Moles/Vol] 23.8 mmol/L Normal 21.0-32.0 [facility] Comment on above: Performed By: #### M G, BNP, CMP #### [facility] [address] [address] [address] Celina Venegas Creatinine [Mass/Vol] 1.09 mg/dL Critically high 0.55-1.02 [facility] Comment on above: Performed By: #### M G, BNP, CMP #### [facility] [address] [address] [address] Celina Venegas EGFR-AF GERMAN >60 Normal >=60 [facility] Comment on above: Performed By: #### M G, BNP, CMP #### [facility] [address] [address] [address] Celina Venegas EGFR-NON AF GERMAN 53 mL/min/1.73m2 Critically low >=60 [facility] Comment on above: Performed By: #### M G, BNP, CMP #### [facility] [address] [place] [address] Dr. Celina Venegas Globulin (S) [Mass/Vol] 3.9 g/dL Normal [facility] Comment on above: Performed By: #### M G, BNP, CMP #### [facility] [address] [place] [address] Dr. Celina Venegas Glucose [Mass/Vol] 244 mg/dL Critically high 74-106 T [facility] Comment on above: Performed By: #### M G, BNP, CMP #### [facility] [address] [place] [address] Dr. Celina Venegas Potassium [Moles/Vol] 3.9 mmol/L Normal 3.5-5.1 [facility] Comment on above: Performed By: #### M G, BNP, CMP #### [facility] [address] [place] [address] Dr. Celina Venegas Protein [Mass/Vol] 6.4 g/dL Normal 6.4-8.[address] [facility] Comment on above: Performed By: #### M G, BNP, CMP #### [facility] [address] [place] [address] Dr. Celina Venegas Sodium [Moles/Vol] 142 mmol/L Normal 136-145 [facility] Comment on above: Performed By: #### M G, BNP, CMP #### [facility] [address] [place] [address] Dr. Celina Venegas Urea nitrogen [Mass/Vol] 18.0 mg/dL Normal 7.0-18.0 [facility] Comment on above: Performed By: #### M G, BNP, CMP #### [facility] [address] [place] [address] Dr. Celina Venegas Urea nitrogen/Creatinine [Mass ratio] 16.5 mg/mg Normal [facility] Comment on above: Performed By: #### M G, BNP, CMP #### [facility] [address] [place] [address] Dr. Celina Venegas PROTIMEon 10-07-2022 INR Coag (PPP) [Relative time] 1.00 {INR} Normal [facility] Comment on above: Performed By: #### B [id number] #### [facility] [address] [place] [address] Dr. Celina Venegas INR GUIDELINES SEE BELOW Normal [facility] Comment on above: Result Comment: CAESAR RED INR: 2.0 - 3.0 CONDITIONS NOT LISTED BELOW 2.5 - 3.5 FOR PROSTHETIC HEART VALVE REPLACEMENT 2.5 - 3.5 RECURRENT THROMBOSIS Performed By: #### B [id number] #### [facility] [address] [place] [address] Dr. Celina Venegas PT Coag (PPP) [Time] 10.6 s Normal 9.0-11.6 [facility] Comment on above: Performed By: #### B [id number] #### [facility] [address] [place] [address] Dr. Celina Venegas INR Coag (PPP) [Relative time] 1.01 {INR} Normal [facility] Comment on above: Performed By: #### M G, BNP, CMP #### [facility] [address] [place] [address] Dr. Celina Venegas INR GUIDELINES SEE BELOW Normal [facility] Comment on above: Result Comment: CAESAR RED INR: 2.0 - 3.0 CONDITIONS NOT LISTED BELOW 2.5 - 3.5 FOR PROSTHETIC HEART VALVE REPLACEMENT 2.5 - 3.5 RECURRENT THROMBOSIS Performed By: #### M G, BNP, CMP #### [facility] [address] [place] [address] Dr. Celina Venegas PT Coag (PPP) [Time] 10.7 s Normal 9.0-11.6 [facility] Comment on above: Performed By: #### M G, BNP, CMP #### [facility] [address] [place] [address] Dr. Celina Venegas PTTon 10-07-2022 aPTT Coag (Bld) [Time] 20.4 s Critically low 22.3-36.2 [facility] Comment on above: Performed By: #### B [id number] #### [facility] [address] [place] [address] Dr. Celina Venegas aPTT Coag (Bld) [Time] 25.2 s Normal 22.3-36.2 [facility] Comment on above: Performed By: #### M G, BNP, CMP #### [facility] [address] [place] [address] Dr. Celina Venegas T4on 10-07-2022 T4 [Mass/Vol] 10.20 ug/dL Normal 4.80-13.90 [facility] Comment on above: Performed By: #### B [id number] #### [facility] [address] [place] [address] Dr. Celina Venegas TROPONIN, HIGH SENSITIVITYon 10-07-2022 HSTROP 279.6 pg/mL Critically high 4.0-51.3 [facility] Comment on above: Result Comment: CUT- OFF POINTS HAVE BEEN ESTABLISHED BASED ON THE FOURTH UNIVERSAL DEFINITIONS OF MYOCARDIAL INFARCTION. THE UPPER REFERENCE LIMIT (URL) OF TROPONIN, DEFINED THE 99TH PERCENTILE OF cTnI DISTRIBUTION IN A REFERENCE POPULATION, HAS BEEN CONFIRMED THE DECISION THRESHOLD FOR [place] DIAGNOSIS. Performed By: #### M G, BNP, CMP #### [facility] [address] [place] [address] Dr. Celina Venegas HSTROP 336.1 pg/mL Critically high 4.0-51.3 [facility] Comment on above: Result Comment: CUT- OFF POINTS HAVE BEEN ESTABLISHED BASED ON THE FOURTH UNIVERSAL DEFINITIONS OF MYOCARDIAL INFARCTION. THE UPPER REFERENCE LIMIT (URL) OF TROPONIN, DEFINED THE 99TH PERCENTILE OF cTnI DISTRIBUTION IN A REFERENCE POPULATION, HAS BEEN CONFIRMED THE DECISION THRESHOLD FOR [place] DIAGNOSIS. Performed By: #### M G, BNP, CMP #### [facility] [address] [place], [place] [address] Dr. Celina Venegas TSHon 10-07-2022 TSH Qn m[IU]/L Critically low 0.358-3.740 [facility] Comment on above: Performed By: #### M G, BNP, CMP #### [facility] [address] [place], [place] [address] Dr. Celina Venegas XR CHEST 1 Von 10-07-2022 XR CHEST 1 V EXAM: XR CHEST 1 V HISTORY: SHORTNESS OF BREATH COMPARISON: 10/07/2022 TECHNIQUE: AP view of the chest. Findings/impression: Decreasing bibasilar airspace disease. Stable cardiac silhouette. No pneumothorax. Trace bilateral pleural effusions. Stable ET and NG tubes. Electronically authenticated by: LOUISE POLLOCK Date: 2022-10-07 09:31 Normal [facility] XR CHEST 1 V EXAM: XR CHEST 1 V HISTORY: Aspiration pneumonia COMPARISON: CT chest 10/06/2022 TECHNIQUE: Single frontal view chest x-ray FINDINGS: Endotracheal tube distal tip terminates 2.6 cm above rosmery. Enteric tube extends toward the stomach. Mild bilateral lower lung opacities reflecting aspiration and/or infiltrates, decreased compared to prior exam. Borderline prominent heart size. No large pleural effusions, pneumothorax, or acute bony abnormality. IMPRESSION: Mild bilateral lower lung opacities reflecting aspiration and/or infiltrates, decreased compared to prior exam. Electronically authenticated by: EMILE DOWNS Date: 2022-10-07 05:44 Normal [facility] XR KUB 1 VIEWon 10-07-2022 XR KUB 1 VIEW EXAM: XR KUB 1 VIEW HISTORY: Pain COMPARISON: Correlation is made with CT abdomen and pelvis examination of the same date. TECHNIQUE: One view of the abdomen was obtained. FINDINGS: A nasogastric tube terminates in the lower abdomen, likely within the stomach. There is a nonspecific bowel gas pattern without evidence of bowel obstruction. A supine view is suboptimal for evaluation of intraperitoneal free air though none is seen. No acute osseous abnormality is seen. There are retrocardiac opacities. IMPRESSION: 1. A nasogastric tube terminates in the mid abdomen, likely within the stomach. 2. Left retrocardiac opacities which could represent aspiration changes and/or pneumonia. Electronically authenticated by: Juaquin COLEMAN Date: 2022-10-06 23:40 Normal [facility] ACETAMINOPHENon 10-06-2022 Acetaminophen [Mass/Vol] ug/mL Critically low 10.0-30.0 [facility] Comment on above: Performed By: #### H STROPN #### [facility] [address] [place] [address] Dr. Celina Venegas ACETONE SERUMon 10-06-2022 ACETONE Negative Normal NEGATIVE [facility] Comment on above: Performed By: #### B [id number] #### [facility] [address] [place] [address] Dr. Celina Venegas BLOOD GASES BTYon 10-06-2022 02 MODE VENTILATOR Normal [facility] Comment on above: Performed By: #### M G, BNP, CMP #### [facility] [address] [place] [address] Dr. Celina Venegas Performed By: #### A BG #### [facility] [address] [address] [address] Celina Venegas ALLENS TEST Positive Normal [facility] Comment on above: Performed By: #### M G, BNP, CMP #### [facility] [address] [place] [address] Dr. Celina Venegas Performed By: #### A BG #### [facility] [address] [address] [address] Celina Venegas Base excess Calc (Bld) [Moles/Vol] -8.9000 mmol/L Critically low -2.0-2.0 [facility] Comment on above: Performed By: #### A BG #### [facility] [address] [place] [address] Dr. Celina Venegas BIPAP PRESSURE Normal [facility] Comment on above: Performed By: #### M G, BNP, CMP #### [facility] [address] [place] [address] Dr. Celina Venegas Performed By: #### A BG #### [facility] [address] [place] [address] Dr. Celina Venegas CPAP [facility] Comment on above: Performed By: #### M G, BNP, CMP #### [facility] [address] [place] [address] Dr. Celina Venegas Performed By: #### A BG #### [facility] [address] [place] [address] Dr. Celina Venegas FIO2 40.00 % [facility] Comment on above: Performed By: #### M G, BNP, CMP #### [facility] [address] [place] [address] Dr. Celina Venegas Performed By: #### A BG #### [facility] [address] [place] [address] Dr. Celina Venegas HCO3 (Bld) [Moles/Vol] 19.3 mmol/L Critically low 22.0-26.0 [facility] Comment on above: Performed By: #### A BG #### [facility] [address] [place] [address] Dr. Celina Venegas LPM [facility] Comment on above: Performed By: #### M G, BNP, CMP #### [facility] [address] [place] [address] Dr. Celina Venegas Performed By: #### A BG #### [facility] [address] [place] [address] Dr. Celina Venegas MINUTE VOLUME Normal [facility] Comment on above: Performed By: #### M G, BNP, CMP #### [facility] [address] [place] [address] Dr. Celina Venegas Performed By: #### A BG #### [facility] [address] [place] [address] Dr. Celina Venegas Oxygen (Bld) [Partial pressure] 97.4 mm[Hg] Normal 80.0-100.0 [facility] Comment on above: Performed By: #### A BG #### [facility] [address] [place] [address] Dr. Celina Venegas Oxygen saturation in Blood 96.1 % Normal 95.0-100.0 [facility] Comment on above: Performed By: #### A BG #### [facility] [address] [place] [address] Dr. Celina Venegas PCO2 50.2 mmHg Critically high 35.0-45.0 [facility] Comment on above: Performed By: #### A BG #### [facility] [address] [place] [address] Dr. Celina Venegas [address] Comment on above: Performed By: #### M G, BNP, CMP #### [facility] [address] [place] [address] Dr. Celina Venegas Performed By: #### A BG #### [facility] [address] [place] [address] Dr. Celina Venegas pH (Bld) 7.193 [pH] Critically low 7.350-7.450 [facility] Comment on above: Performed By: #### A BG #### [facility] [address] [place] [address] Dr. Celina Venegas [facility] Comment on above: Performed By: #### M G, BNP, CMP #### [facility] [address] [place] [address] Dr. Celina Venegas Performed By: #### A BG #### [facility] [address] [place] [address] Dr. Celina Venegas [facility] Comment on above: Performed By: #### M G, BNP, CMP #### [facility] [address] [place] [address] Dr. Celina Venegas Performed By: #### A BG #### [facility] [address] [place] [address] Dr. Celina Venegas PUNCTURE SITE RR [facility] Comment on above: Performed By: #### M G, BNP, CMP #### [facility] [address] [place] [address] Dr. Celina Venegas Performed By: #### A BG #### [facility] [address] [place] [address] Dr. Celina Venegas RATE 16 bpm Normal [facility] Comment on above: Performed By: #### M G, BNP, CMP #### [facility] [address] [place] [address] Dr. Celina Venegas Performed By: #### A BG #### [facility] [address] [place] [address] Dr. Celina Venegas VENT MODE A/C Normal [facility] Comment on above: Performed By: #### M G, BNP, CMP #### [facility] [address] [place] [address] Dr. Celina Venegas Performed By: #### A BG #### [facility] [address] [place] [address] Dr. Celina Venegas VT 400 ML [facility] Comment on above: Performed By: #### M G, BNP, CMP #### [facility] [address] [place] [address] Dr. Celina Venegas Performed By: #### A BG #### [facility] [address] [place] [address] Dr. Celina Venegas BNPon 10-06-2022 Natriuretic peptide B (Bld) [Mass/Vol] 3590.0 pg/mL Critically high <=900.0 [facility] Comment on above: Performed By: #### C BC #### [facility] [address] [place] [address] Dr. Celina Venegas CBC AUTO DIFFon 10-06-2022 BASO # 0.1 103/ul Normal 0.0-0.1 [facility] Comment on above: Performed By: #### P REG #### [facility] [address] [place] [address] Dr. Celina Venegas Basophils/100 WBC (Bld) 0.4 % Normal 0.2-2.0 [facility] Comment on above: Performed By: #### P REG #### [facility] [address] [place] [address] Dr. Celina Venegas EO # 0.2 103/ul Normal 0.0-0.7 [facility] Comment on above: Performed By: #### P REG #### [facility] [address] [place] [address] Dr. Celina Venegas Eosinophils/100 WBC (Bld) 1.1 % Normal 0.9-7.0 [facility] Comment on above: Performed By: #### P REG #### [facility] [address] [place] [address] Dr. Celina Venegas Erythrocyte distribution width (RBC) [Ratio] 14.5 % Normal 11.0-15.0 [facility] Comment on above: Performed By: #### P REG #### [facility] [address] [place] [address] Dr. Celina Venegas Hematocrit (Bld) [Volume fraction] 38.1 % Normal 36.0-48.0 [facility] Comment on above: Performed By: #### P REG #### [facility] [address] [place] [address] Dr. Celina Venegas Hemoglobin (Bld) [Mass/Vol] 11.3 g/dL Critically low 12.0-16.0 [facility] Comment on above: Performed By: #### P REG #### [facility] [address] [place] [address] Dr. Celina Venegas IG # 0.21 10e3/ul Critically high 0.00-0.03 [facility] Comment on above: Performed By: #### P REG #### [facility] [address] [place] [address] Dr. Celina Venegas IG % 1.5 % Critically high 0.0-0.5 [facility] Comment on above: Performed By: #### P REG #### [facility] [address] [place] [address] Dr. Celina Venegas LYMPH # 3.3 103/ul Normal 1.2-3.8 [facility] Comment on above: Performed By: #### P REG #### [facility] [address] [place] [address] Dr. Celina Venegas Lymphocytes/100 WBC (Bld) 23.8 % Normal 20.5-60.0 [facility] Comment on above: Performed By: #### P REG #### [facility] [address] [place] [address] Dr. Celina Venegas MANUAL DIFF REQ NO Normal [facility] Comment on above: Performed By: #### P REG #### [facility] [address] [place] [address] Dr. Celina Venegas MCH (RBC) [Entitic mass] 24.9 pg Critically low 26.7-34.0 [facility] Comment on above: Performed By: #### P REG #### [facility] [address] [place] [address] Dr. Celina Venegas MCHC (RBC) [Mass/Vol] 29.7 g/dL Critically low 29.9-35.2 [facility] Comment on above: Performed By: #### P REG #### [facility] [address] [place] [address] Dr. Celina Venegas MCV (RBC) [Entitic vol] 83.9 fL Normal 81.0-99.0 [facility] Comment on above: Performed By: #### P REG #### [facility] [address] [place] [address] Dr. Celina Venegas MONO # 0.5 103/ul Normal 0.3-0.8 [facility] Comment on above: Performed By: #### P REG #### [facility] [address] [place] [address] Dr. Celina Venegas Monocytes/100 WBC (Bld) 3.8 % Normal 1.7-12.0 [facility] Comment on above: Performed By: #### P REG #### [facility] [address] [place] [address] Dr. Celina Venegas NEUT # 9.6 103/ul Critically high 1.4-6.5 [facility] Comment on above: Performed By: #### P REG #### [facility] [address] [place] [address] Dr. Celina Venegas Neutrophils/100 WBC (Bld) 69.4 % Normal 43.0-75.0 [facility] Comment on above: Performed By: #### P REG #### [facility] [address] [address] [address] Celina Venegas Platelet mean volume (Bld) [Entitic vol] 10.4 fL Normal 9.5-13.5 [facility] Comment on above: Performed By: #### P REG #### [facility] [address] [address] [address] Celina Venegas PLT 409 103/ul Normal 150-450 [facility] Comment on above: Performed By: #### P REG #### [facility] [address] [address] [address] Celina Venegas RBC 4.54 106/ul Normal 4.20-5.40 [facility] Comment on above: Performed By: #### P REG #### [facility] [address] [address] [address] Celina Venegas WBC 13.8 103/ul Critically high 4.0-11.0 [facility] Comment on above: Performed By: #### P REG #### [facility] [address] [place] [address] ABD/PELV W CONon 10-07-[address] ABD/PELV W CON CT SCAN OF THE ABDOM EN AND PELVIS WITH CONTRAST, 10/06/2022 8:27 PM EDT COMPARISON: CT scan of the abdomen and pelvis, 09/07/2022 CLINICAL HISTORY: ABDOMINAL DISTENSION (GASEOUS) shortness of breath TECHNIQUE: 3 mm axial images performed through the abdomen and pelvis following administration of 100 mL of intravenous Omnipaque contrast. 3 mm coronal and sagittal MPR reconstruction performed through the abdomen and pelvis. Dose reduction techniques were achieved by using automated exposure control and/or adjustment of mA and/or kV according to patient size and/or use of iterative reconstruction technique. ABDOMINAL CT SCAN FINDINGS: Some motion obscuring some details. Patchy bibasilar opacities also minimally involving the right middle lobe. Borderline heart size with no significant pericardial effusion. The stomach is distended with some food debris and fluid likely from recent meal. Correlate clinically. Small low attenuation lesion in the left inferior pole too small to fully characterize but likely correspond to some tiny cysts. Remaining solid organs and gallbladder unremarkable in appearance. PELVIC CT FINDINGS: Parks balloon catheter located within a decompressed urinary bladder. Diverticulosis of the colon without CT findings to suspect acute diverticulitis. Prior appendectomy. No acute osseous abnormality. IMPRESSION: 1. Patchy bibasilar groundglass opacity also minimally involving the right middle lobe may correspond to some inflammatory or infectious pneumonitis. Correlate clinically. 2. Mild cardiomegaly. 3. The stomach is distended with some food debris and fluid possibly from recent meal. Correlate clinically. 4. Tiny cyst suspected in the left inferior renal pole. 5. Parks balloon catheter located within a decompressed urinary bladder. 6. Diverticulosis of the colon without CT findings to suspect acute diverticulitis. No bowel obstruction. Prior appendectomy. Electronically authenticated by: Ju RIVERA Date: 2022-10-06 21:52 Normal [facility] CT ABD/PELVIS WO CONon 10-06 CT ABD/PELVIS WO CON EXAMINATION: CTA CH EST WO W CON, CT ABD/PELVIS WO CON HISTORY: SHORTNESS OF BREATH COMPARISON: 09/07/2022, chest radiograph 10/06/2022. TECHNIQUE: CT angiography of the pulmonary arteries following the administration of intravenous contrast. CT of the abdomen and pelvis without additional contrast bolus. Coronal and sagittal MIP (maximum intensity projection) images were performed. Dose reduction techniques were achieved by using automated exposure control and/or adjustment of mA and/or kV according to patient size and/or use of iterative reconstruction technique. FINDINGS: Satisfactory opacification of the pulmonary arteries. TUBES AND IMPLANTS: Endotracheal tube tip seen approximately 1 centimeter above the rosmery. Parks catheter in place CHEST: CHEST WALL AND LOWER NECK: Unremarkable. MEDIASTINUM AND VAUGHN: No hematoma. Mildly enlarged mediastinal lymph nodes are seen. Small hiatal hernia. AORTA: No aneurysm or dissection HEART: Unremarkable. PULMONARY ARTERIES: No embolism CORONARY ARTERIES: No coronary artery calcifications. LUNG AND AIRWAYS: Bilateral groundglass centrilobular nodules are seen with confluent groundglass opacities and soft tissue density nodules seen within both lower lobes PLEURA: Unremarkable. BONES: No suspicious lesions. ABDOMEN and PELVIS ABDOMINAL WALL AND SOFT TISSUES: Unremarkable. BONES: No suspicious lesions. Multilevel degenerative changes of the spine. ARTERIES: No aortoiliac aneurysm VEINS: Unremarkable. LYMPH NODES: Unremarkable. PERITONEUM/ RETROPERITONEUM: Unremarkable. BOWEL: No obstruction. Moderate pancolonic sigmoid colonic diverticula. APPENDIX: Unremarkable LIVER: No focal lesions GALLBLADDER: Unremarkable. BILE DUCTS: Not dilated SPLEEN: Unremarkable. PANCREAS: Unremarkable. ADRENALS: Unremarkable. KIDNEYS/ URETERS: No stones or hydronephrosis. REPRODUCTIVE ORGANS: Uterus appears atrophic URINARY BLADDER: Decompressed via Parks catheter IMPRESSION: Motion artifact mildly limits evaluation. 1. No evidence of pulmonary embolism. 2. Bilateral groundglass and soft tissue density nodules with confluent bilateral lower lobe airspace disease concerning for infectious bronchiolitis or aspiration. 3. No evidence of acute intra-abdominal or intrapelvic process. 4. Moderate pancolonic diverticulosis. Electronically authenticated by: LISSA ARTEAGA Date: 2022-10-06 21:51 Normal [facility] CULTURE BLOODon 10-06-2022 Microscopic examination of blood, culture Culture Observations: NO GROWTH AT 5 DAYS. Normal [facility] Comment on above: Performed By: #### H STROPN #### [facility] [address] [place] [address] Dr. Celina Venegas Performed By: #### B [id number] #### [facility] [address] [place] [address] Dr. Celina Venegas Covid-19 PCR (CVDTBH)on 09-13 SARS-CoV-2 (COVID-19) RNA ELVA+probe Ql (Unsp spec) Not detected Normal NOT DETECTED [facility] Comment on above: Performed By: #### P REG #### [facility] [address] [place] [address] Dr. Celina Venegas DRUG SCREEN RAPID (URINE)on 10-06-2022 AMP Negative Normal NEGATIVE [facility] Comment on above: Performed By: #### M G, BNP, CMP #### [facility] [address] [place] [address] Dr. Celina Venegas BAR Negative Normal NEGATIVE [facility] Comment on above: Performed By: #### M G, BNP, CMP #### [facility] [address] [place] [address] Dr. Celina Venegas BUP Negative Normal NEGATIVE [facility] Comment on above: Performed By: #### M G, BNP, CMP #### [facility] [address] [address] [address] Celina Venegas BZO Negative Normal NEGATIVE [facility] Comment on above: Performed By: #### M G, BNP, CMP #### [facility] [address] [place] [address] Dr. Celina Venegas BRIANDA Negative Normal NEGATIVE [facility] Comment on above: Performed By: #### M G, BNP, CMP #### [facility] [address] [address] [address] Celina Venegas CUT-OFFS SEE BELOW Normal [facility] Comment on above: Result Comment: AMP (Amphetamine): 500ng/mL, BAR (Barbituates): 200 ng/mL, BZO (Benzodiazepines): 150 ng/mL, BUP (Buprenorphine): 10 ng/mL, BRIANDA (Cocaine): 150 ng/mL, mAMP (Methamphetamine): 500 ng/mL, MTD (Methadone): 200 ng/mL, OPI (Opiates): 100 ng/mL, OXY (Oxycodone): 100 ng/mL, PCP (Phencyclidine): 25 ng/mL, PPX (Propoxyphene): 300 ng/mL, THC (Cannabinoids): 50 ng/mL, TCA (Trycyclic Antidepressants): 300 ng/mL Performed By: #### M G, BNP, CMP #### [facility] [address] [place] [address] Dr. Celina Venegas DRUG CUT HEADER DRUG CLASS TEST SYST EM CUT-OFF CONCENTRATIONS ARE FOLLOWS: Normal [facility] Comment on above: Performed By: #### M G, BNP, CMP #### [facility] [address] [place] [address] Dr. Celina Venegas mAMP Negative Normal NEGATIVE [facility] Comment on above: Performed By: #### M G, BNP, CMP #### [facility] [address] [place] [address] Dr. Celina Venegas MTD Negative Normal NEGATIVE [facility] Comment on above: Performed By: #### M G, BNP, CMP #### [facility] [address] [place] [address] Dr. Celina Venegas OPI Negative Normal NEGATIVE [facility] Comment on above: Performed By: #### M G, BNP, CMP #### [facility] [address] [address] [address] Celina Venegas OXY Negative Normal NEGATIVE [facility] Comment on above: Performed By: #### M G, BNP, CMP #### [facility] [address] [place] [address] Dr. Celina Venegas PCP Negative Normal NEGATIVE [facility] Comment on above: Performed By: #### M G, BNP, CMP #### [facility] [address] [address] [address] Celina Venegas PPX Negative Normal NEGATIVE [facility] Comment on above: Performed By: #### M G, BNP, CMP #### [facility] [address] [place] [address] Dr. Celina Venegas TCA Negative Normal NEGATIVE [facility] Comment on above: Performed By: #### M G, BNP, CMP #### [facility] [address] [place] [address] Dr. Celina Venegas THC Positive Abnormal NEGATIVE [facility] Comment on above: Performed By: #### M G, BNP, CMP #### [facility] [address] [place] [address] Dr. Celina Venegas ETHANOL (BLD ALC)on 10-07-19 ALC NOTE NOTE: 80 mg/dl is th e legal limit for a blood alcohol level Normal [facility] Comment on above: Performed By: #### B [id number] #### [facility] [address] [place] [address] Dr. Celina Venegas Ethanol [Mass/Vol] mg/dL Normal [facility] Comment on above: Performed By: #### B [id number] #### [facility] [address] [place] [address] Dr. Celina Venegas LACTATE/LACTIC ACIDon 2022 Lactate [Moles/Vol] 2.2 mmol/L Critically high 0.4-2.0 [facility] Comment on above: Performed By: #### B LDCX2 #### [facility] [address] [address] [address] Celina Venegas Lactate [Moles/Vol] 5.5 mmol/L Critically high 0.4-2.0 [facility] Comment on above: Performed By: #### M G, BNP, CMP #### [facility] [address] [address] [address] Celina Venegas LIVER PROFILEon 10-06-2022 Albumin [Mass/Vol] 2.8 g/dL Critically low 3.4-5.0 [facility] Comment on above: Performed By: #### M G, BNP, CMP #### [facility] [address] [address] [address] Celina Venegas Albumin/Globulin [Mass ratio] 0.6 {ratio} Normal [facility] Comment on above: Performed By: #### M G, BNP, CMP #### [facility] [address] [address] [address] Celina Venegas ALP [Catalytic activity/Vol] 218 U/L Critically high 46-116 [facility] Comment on above: Performed By: #### M G, BNP, CMP #### [facility] [address] [address] [address] Celina Venegas ALT [Catalytic activity/Vol] 22 U/L Normal 14-59 [facility] Comment on above: Performed By: #### M G, BNP, CMP #### [facility] [address] [address] [address] Celina Venegas AST [Catalytic activity/Vol] 27 U/L Normal 15-37 [facility] Comment on above: Performed By: #### M G, BNP, CMP #### [facility] [address] [address] [address] Celina Venegas BILI, CONJUGATED 0.1 mg/dL Normal 0.0-0.2 [facility] Comment on above: Performed By: #### M G, BNP, CMP #### [facility] [address] [address] [address] Celina Venegas Bilirubin [Mass/Vol] 0.2 mg/dL Normal 0.2-1.0 [facility] Comment on above: Performed By: #### M G, BNP, CMP #### [facility] [address] [address] [address] Celina Venegas Globulin (S) [Mass/Vol] 4.6 g/dL Normal [facility] Comment on above: Performed By: #### M G, BNP, CMP #### [facility] [address] [place] [address] Dr. Celina Venegas Protein [Mass/Vol] 7.4 g/dL Normal 6.4-8.2 [facility] Comment on above: Performed By: #### M G, BNP, CMP #### [facility] [address] [place] [address] Dr. Celina Venegas PROF CHEM 8 (BAS METB)on Anion gap [Moles/Vol] 20.6 mmol/L Normal [facility] Comment on above: Performed By: #### C BC #### [facility] [address] [place] [address] Dr. Celina Venegas Calcium [Mass/Vol] 8.4 mg/dL Critically low 8.5-10.1 [facility] Comment on above: Performed By: #### C BC #### [facility] [address] [place] [address] Dr. Celina Venegas Chloride [Moles/Vol] 107 mmol/L Normal 98-107 [facility] Comment on above: Performed By: #### C BC #### [facility] [address] [place] [address] Dr. Celina Venegas CO2 [Moles/Vol] 19.5 mmol/L Critically low 21.0-32.0 [facility] Comment on above: Performed By: #### C BC #### [facility] [address] [place] [address] Dr. Celina Venegas Creatinine [Mass/Vol] 1.39 mg/dL Critically high 0.55-1.02 [facility] Comment on above: Performed By: #### C BC #### [facility] [address] [place] [address] Dr. Celina Venegas EGFR-AF GERMAN 48 mL/min/1.73m2 Critically low >=60 [facility] Comment on above: Performed By: #### C BC #### [facility] [address] [address] [address] Celina Venegas EGFR-NON AF GERMAN 40 mL/min/1.73m2 Critically low >=60 [facility] Comment on above: Performed By: #### C BC #### [facility] [address] [address] [address] Celina Venegas Glucose [Mass/Vol] 322 mg/dL Critically high 74-106 T [facility] Comment on above: Performed By: #### C BC #### [facility] [address] [address] [address] Celina Venegas Potassium [Moles/Vol] 3.1 mmol/L Critically low 3.5-5.1 [facility] Comment on above: Performed By: #### C BC #### [facility] [address] [address] [address] Celina Venegas Sodium [Moles/Vol] 144 mmol/L Normal 136-145 [facility] Comment on above: Performed By: #### C BC #### [facility] [address] [address] [address] Celina Venegas Urea nitrogen [Mass/Vol] 22.0 mg/dL Critically high 7.0-18.0 [facility] Comment on above: Performed By: #### C BC #### [facility] [address] [address] [address] Celina Venegas Urea nitrogen/Creatinine [Mass ratio] 15.8 mg/mg Normal [facility] Comment on above: Performed By: #### C BC #### [facility] [id number] Celina Venegas SALICYLATEon 10-06-2022 SALICYLATE <2.8 Normal <=19.9 [facility] Comment on above: Performed By: #### H STROPN #### [facility] [address] [address] [address] Celina Venegas SYMPTOMATIC COVID-19 ANTIGEN on 10-06-2022 EUA Statement SEE BELOW Normal [facility] Comment on above: Result Comment: This test has not been FDA cleared or approved, but has been authorized by the FDA under an Emergency Use Authorization (EUA) for use by authorized laboratories certified under CLIA that meet the requirements to perform moderate or high complexity testing. This test has been authorized only for the detection of proteins from SARS-CoV-2, not for any other viruses or pathogens. The emergency use of this test is authorized for the duration of the declaration that circumstances exist justifying the authorization of emergency use of in vitro diagnostic tests for detection and/or diagnosis of Covid-19 under section 564(b)(1) of the Act, 21 U.S.C. 360bbb-3(b)(1), unless the declaration is terminated or authorization is revoked sooner. Performed By: #### M G, BNP, CMP #### [facility] [address] [place] [address] Dr. Celina Venegas SARS-CoV-2 (COVID-19) RNA ELVA+probe Ql (Unsp spec) Negative Normal NEGATIVE [facility] Comment on above: Performed By: #### M G, BNP, CMP #### [facility] [address] [address] [address] Celina Venegas TROPONIN, HIGH SENSITIVITYon 10-06-2022 HSTROP 288.7 pg/mL Critically high 4.0-51.3 [facility] Comment on above: Result Comment: CUT- OFF POINTS HAVE BEEN ESTABLISHED BASED ON THE FOURTH UNIVERSAL DEFINITIONS OF MYOCARDIAL INFARCTION. THE UPPER REFERENCE LIMIT (URL) OF TROPONIN, DEFINED THE 99TH PERCENTILE OF cTnI DISTRIBUTION IN A REFERENCE POPULATION, HAS BEEN CONFIRMED THE DECISION THRESHOLD FOR [place] DIAGNOSIS. Performed By: #### H STROPN #### [facility] [address] [address] [address] Celina Venegas HSTROP 109.5 pg/mL Critically high 4.0-51.3 [facility] Comment on above: Result Comment: CUT- OFF POINTS HAVE BEEN ESTABLISHED BASED ON THE FOURTH UNIVERSAL DEFINITIONS OF MYOCARDIAL INFARCTION. THE UPPER REFERENCE LIMIT (URL) OF TROPONIN, DEFINED THE 99TH PERCENTILE OF cTnI DISTRIBUTION IN A REFERENCE POPULATION, HAS BEEN CONFIRMED THE DECISION THRESHOLD FOR [place] DIAGNOSIS. Performed By: #### C BC #### [facility] [address] [place], [place] [address] Dr. Celina Venegas XR CHEST 1 Von 10-06-2022 XR CHEST 1 V EXAM: XR CHEST 1 V HISTORY: SHORTNESS OF BREATH COMPARISON: 10/06/2022 TECHNIQUE: Frontal view of the chest. FINDINGS: There is an endotracheal tube with tip approximately 2.8 cm above the rosmery. Diffuse bilateral interstitial prominence which may represent edema and/or infiltrates. This has improved since the prior study. No large pleural effusions. Cardiomediastinal silhouette is unremarkable. Visualized osseous structures are unremarkable. IMPRESSION: Endotracheal tube tip approximately 2.8 cm above the rosmery. Diffuse bilateral interstitial and airspace disease which has improved since the prior study. Electronically authenticated by: GABRIELLA TESFAYE Date: 2022-10-06 18:46 Normal [facility] XR CHEST 1 V EXAM: XR CHEST 1 V HISTORY: SHORTNESS OF BREATH COMPARISON: Chest x-rays of 09/22/2022. TECHNIQUE: Single AP portable upright view of the chest FINDINGS: The heart size is normal. Diffuse airspace opacities are seen throughout the lung mariscal, suspicious for infectious process and/or pulmonary edema. Small right pleural effusion cannot be excluded. No obvious pneumothorax is seen. No acute osseous abnormality seen. IMPRESSION: Diffuse airspace opacities are seen throughout the lung mariscal, suspicious for infectious process and/or pulmonary edema. Electronically authenticated by: JUAN LUIS LOVE Date: 2022-10-06 18:22 Normal [facility] GGTon 09-22-2022 Gamma glutamyl transferase [Catalytic activity/Vol] 80 U/L Critically high 8-55 [facility] Comment on above: Performed By: #### H STROPN #### [facility] [address] [place], [place] [address] Dr. Celina Venegas LIPID PROFILEon 09-22-2022 CHOL-HDL RATIO NORM SEE BELOW Normal [facility] Comment on above: Result Comment: 3.3 - 4.4 LOW RISK 4.4 - 7.1 AVERAGE RISK 7.1 - 11.0 MODERATE RISK >11.0 HIGH RISK Performed By: #### H STROPN #### [facility] [address] [address] [address] Celina Venegas Cholesterol [Mass/Vol] 162 mg/dL Normal <=200 [facility] Comment on above: Performed By: #### H STROPN #### [facility] [address] [address] [address] Celina Venegas Cholesterol in HDL [Mass/Vol] 41 mg/dL Normal 40-60 [facility] Comment on above: Performed By: #### H STROPN #### [facility] [address] [address] [address] Celina Venegas Cholesterol in LDL [Mass/Vol] 90.8 mg/dL Normal [facility] Comment on above: Performed By: #### H STROPN #### [facility] [address] [address] [address] Celina Venegas Cholesterol.total/Ch olesterol in HDL [Mass ratio] 4.0 {ratio} Normal [facility] Comment on above: Performed By: #### H STROPN #### [facility] [address] [address] [address] Celina Venegas HDL NORMAL > or = 60 mg/dl - LO W CARDIOVASCULAR RISK <40 mg/dl - HIGH CARDIOVASCULAR RISK Normal [facility] Comment on above: Performed By: #### H STROPN #### [facility] [address] [address] [address] Celina Venegas LDL CALC NORMAL SEE BELOW Normal [facility] Comment on above: Result Comment: <100 mg/dl OPTIMAL 100 - 129 mg/dl NEAR OR ABOVE OPTIMAL 130 - 159 mg/dl BORDERLINE HIGH 160 - 189 mg/dl HIGH >190 mg/dl VERY HIGH Performed By: #### H STROPN #### [facility] [address] [address] [address] Celina Venegas Triglyceride [Mass/Vol] 151 mg/dL Critically high <=150 [facility] Comment on above: Performed By: #### H STROPN #### [facility] [address] [address] [address] Celina Venegas VLDL CALC 30.2 mg/dL Normal [facility] Comment on above: Performed By: #### H STROPN #### [facility] [address] [address] [address] Celina Venegas XR CHEST 2 Von 09-22-2022 XR CHEST 2 V EXAMINATION: XR CHES T 2 V HISTORY: Chest pain on breathing COMPARISON: XR abdomen with PA chest 09/06/2022 FINDINGS: LUNGS: No significant pulmonary parenchymal abnormalities. VASCULATURE: No increased pulmonary vasculature. PLEURA: No pneumothorax, effusion, or pleural thickening. CARDIAC: No cardiomegaly or cardiac silhouette abnormality. MEDIASTINUM: No visible mass or adenopathy. BONES: No fracture or visible bone lesion. OTHER: Negative. IMPRESSION: 1. No acute cardiopulmonary process. 2. Clearing of previously seen mild lingular opacities. Electronically authenticated by: THADDEUS LO Date: 2022-09-22 10:58 Normal [facility] STOOL CULTUREon 09-11-2022 Campylobacter Culture Final report Normal [facility] Comment on above: Performed By: #### M G, BNP, CMP #### [facility] [address] [address] [address] Celina Venegas E coli Shiga Toxin EIA Negative Normal Negative [facility] Comment on above: Performed By: #### M G, BNP, CMP #### [facility] [address] [address] [address] Celina Venegas Result 1 Comment Normal [facility] Comment on above: Result Comment: No S almonella or Shigella recovered. Performed By: #### M G, BNP, CMP #### [facility] [address] [address] [address] Celina Venegas Result Comment: No C ampylobacter species isolated. Salmonella/Shigella Screen Final report Normal [facility] Comment on above: Performed By: #### M G, BNP, CMP #### [facility] [address] [address] [address] Celina Venegas CBC AUTO DIFFon 09-08-2022 BASO # 0.0 103/ul Normal 0.0-0.1 [facility] Comment on above: Performed By: #### M G, BNP, CMP #### [facility] [address] [address] [address] Celina Venegas Basophils/100 WBC (Bld) 0.1 % Critically low 0.2-2.0 [facility] Comment on above: Performed By: #### M G, BNP, CMP #### [facility] [address] [place] [address] Dr. Celina Venegas EO # 0.3 103/ul Normal 0.0-0.7 [facility] Comment on above: Performed By: #### M G, BNP, CMP #### [facility] [address] [place] [address] Dr. Celina Venegas Eosinophils/100 WBC (Bld) 3.6 % Normal 0.9-7.0 [facility] Comment on above: Performed By: #### M G, BNP, CMP #### [facility] [address] [place] [address] Dr. Celina Venegas Erythrocyte distribution width (RBC) [Ratio] 13.9 % Normal 11.0-15.0 [facility] Comment on above: Performed By: #### M G, BNP, CMP #### [facility] [address] [place] [address] Dr. Celina Venegas Hematocrit (Bld) [Volume fraction] 28.9 % Critically low 36.0-48.0 [facility] Comment on above: Performed By: #### M G, BNP, CMP #### [facility] [address] [place] [address] Dr. Celina Venegas Hemoglobin (Bld) [Mass/Vol] 8.8 g/dL Critically low 12.0-16.0 [facility] Comment on above: Performed By: #### M G, BNP, CMP #### [facility] [address] [place] [address] Dr. Celina Venegas IG # 0.03 10e3/ul Normal 0.00-0.03 [facility] Comment on above: Performed By: #### M G, BNP, CMP #### [facility] [address] [place] [address] Dr. Celina Venegas IG % 0.4 % Normal 0.0-0.5 [facility] Comment on above: Performed By: #### M G, BNP, CMP #### [facility] [address] [address] [address] Celina Venegas LYMPH # 0.8 103/ul Critically low 1.2-3.8 [facility] Comment on above: Performed By: #### M G, BNP, CMP #### [facility] [address] [place] [address] Dr. Celina Venegas Lymphocytes/100 WBC (Bld) 10.5 % Critically low 20.5-60.0 [facility] Comment on above: Performed By: #### M G, BNP, CMP #### [facility] [address] [place] [address] Dr. Celina Venegas MANUAL DIFF REQ NO Normal [facility] Comment on above: Performed By: #### M G, BNP, CMP #### [facility] [address] [place] [address] Dr. Celina Venegas MCH (RBC) [Entitic mass] 24.9 pg Critically low 26.7-34.0 [facility] Comment on above: Performed By: #### M G, BNP, CMP #### [facility] [address] [place] [address] Dr. Celina Venegas MCHC (RBC) [Mass/Vol] 30.4 g/dL Normal 29.9-35.2 [facility] Comment on above: Performed By: #### M G, BNP, CMP #### [facility] [address] [place] [address] Dr. Celina Venegas MCV (RBC) [Entitic vol] 81.9 fL Normal 81.0-99.0 [facility] Comment on above: Performed By: #### M G, BNP, CMP #### [facility] [address] [place] [address] Dr. Celina Venegas MONO # 0.6 103/ul Normal 0.3-0.8 [facility] Comment on above: Performed By: #### M G, BNP, CMP #### [facility] [address] [place] [address] Dr. Celina Venegas Monocytes/100 WBC (Bld) 7.8 % Normal 1.7-12.0 [facility] Comment on above: Performed By: #### M G, BNP, CMP #### [facility] [address] [address] [address] Celina Venegas NEUT # 5.5 103/ul Normal 1.4-6.5 [facility] Comment on above: Performed By: #### M G, BNP, CMP #### [facility] [address] [address] [address] Celina Venegas Neutrophils/100 WBC (Bld) 77.6 % Critically high 43.0-75.0 [facility] Comment on above: Performed By: #### M G, BNP, CMP #### [facility] [address] [place] [address] Dr. Celina Venegas Platelet mean volume (Bld) [Entitic vol] 10.8 fL Normal 9.5-13.5 [facility] Comment on above: Performed By: #### M G, BNP, CMP #### [facility] [address] [place] [address] Dr. Celina Venegas PLT 256 103/ul Normal 150-450 [facility] Comment on above: Performed By: #### M G, BNP, CMP #### [facility] [address] [place] [address] Dr. Celina Venegas RBC 3.53 106/ul Critically low 4.20-5.40 [facility] Comment on above: Performed By: #### M G, BNP, CMP #### [facility] [address] [place] [address] Dr. Celina Venegas WBC 7.1 103/ul Normal 4.0-11.0 [facility] Comment on above: Performed By: #### M G, BNP, CMP #### [facility] [address] [place] [address] Dr. Celina Venegas Consultation Noteon 09-09-19 23 Consultation Note [id number]:[id number] Normal [facility] MAGNESIUMon 09-08-2022 Magnesium [Mass/Vol] 1.1 mg/dL Critically low 1.8-2.4 [facility] Comment on above: Performed By: #### B [id number] #### [facility] [address] [place] [address] Dr. Celina Venegas PROF CHEM 8 (BAS METB)on Anion gap [Moles/Vol] 13.5 mmol/L Normal [facility] Comment on above: Performed By: #### B [id number] #### [facility] [address] [place] [address] Dr. Celina Venegas Calcium [Mass/Vol] 8.7 mg/dL Normal 8.5-10.1 [facility] Comment on above: Performed By: #### B [id number] #### [facility] [address] [place] [address] Dr. Celina Venegas Chloride [Moles/Vol] 108 mmol/L Critically high 98-107 [facility] Comment on above: Performed By: #### B [id number] #### [facility] [address] [place] [address] Dr. Celina Venegas CO2 [Moles/Vol] 22.5 mmol/L Normal 21.0-32.0 [facility] Comment on above: Performed By: #### B [id number] #### [facility] [address] [place] [address] Dr. Celina Venegas Creatinine [Mass/Vol] 0.65 mg/dL Normal 0.55-1.02 [facility] Comment on above: Performed By: #### B [id number] #### [facility] [address] [place] [address] Dr. Celina Venegas EGFR-AF GERMAN >60 Normal >=60 [facility] Comment on above: Performed By: #### B [id number] #### [facility] [address] [place] [address] Dr. Celina Venegas EGFR-NON AF GERMAN >60 Normal >=60 [facility] Comment on above: Performed By: #### B [id number] #### [facility] [address] [address] [address] Celina Venegas Glucose [Mass/Vol] 98 mg/dL Normal 74-106 [facility] Comment on above: Performed By: #### B [id number] #### [facility] [address] [place] [address] Dr. Celina Venegas Potassium [Moles/Vol] 3.0 mmol/L Critically low 3.5-5.1 [facility] Comment on above: Performed By: #### B [id number] #### [facility] [address] [place] [address] Dr. Celina Venegas Sodium [Moles/Vol] 141 mmol/L Normal 136-145 [facility] Comment on above: Performed By: #### B [id number] #### [facility] [address] [place] [address] Dr. Celina Venegas Urea nitrogen [Mass/Vol] 14.0 mg/dL Normal 7.0-18.0 [facility] Comment on above: Performed By: #### B [id number] #### [facility] [address] [place] [address] Dr. Celina Venegas Urea nitrogen/Creatinine [Mass ratio] 21.5 mg/mg Normal [facility] Comment on above: Performed By: #### B [id number] #### [facility] [address] [place] [address] Dr. Celina Venegas CBC AUTO DIFFon 09-07-2022 BASO # 0.0 103/ul Normal 0.0-0.1 [facility] Comment on above: Performed By: #### B [id number] #### [facility] [address] [place] [address] Dr. Celina Venegas Basophils/100 WBC (Bld) 0.2 % Normal 0.2-2.0 [facility] Comment on above: Performed By: #### B [id number] #### [facility] [address] [place] [address] Dr. Celina Venegas EO # 0.1 103/ul Normal 0.0-0.7 [facility] Comment on above: Performed By: #### B LDCX2 #### [facility] [address] [address] [address] Celina Venegas Eosinophils/100 WBC (Bld) 0.9 % Normal 0.9-7.0 [facility] Comment on above: Performed By: #### B [id number] #### [facility] [address] [place] [address] Dr. Celina Venegas Erythrocyte distribution width (RBC) [Ratio] 14.0 % Normal 11.0-15.0 [facility] Comment on above: Performed By: #### B [id number] #### [facility] [address] [place] [address] Dr. Celina Venegas Hematocrit (Bld) [Volume fraction] 31.7 % Critically low 36.0-48.0 [facility] Comment on above: Performed By: #### B LDCX2 #### [facility] [address] [place] [address] Dr. Celina Venegas Hemoglobin (Bld) [Mass/Vol] 9.2 g/dL Critically low 12.0-16.0 [facility] Comment on above: Performed By: #### B [id number] #### [facility] [address] [place] [address] Dr. Celina Venegas IG # 0.04 10e3/ul Critically high 0.00-0.03 [facility] Comment on above: Performed By: #### B [id number] #### [facility] [address] [place] [address] Dr. Celina Venegas IG % 0.4 % Normal 0.0-0.5 [facility] Comment on above: Performed By: #### B [id number] #### [facility] [address] [place] [address] Dr. Celina Venegas LYMPH # 0.8 103/ul Critically low 1.2-3.8 [facility] Comment on above: Performed By: #### B [id number] #### [facility] [address] [place] [address] Dr. Celina Venegas Lymphocytes/100 WBC (Bld) 8.7 % Critically low 20.5-60.0 [facility] Comment on above: Performed By: #### B LDCX2 #### [facility] [address] [address] [address] Celina Venegas MANUAL DIFF REQ NO Normal [facility] Comment on above: Performed By: #### B [id number] #### [facility] [address] [place] [address] Dr. Celina Venegas MCH (RBC) [Entitic mass] 25.7 pg Critically low 26.7-34.0 [facility] Comment on above: Performed By: #### B LDCX2 #### [facility] [address] [place] [address] Dr. Celina Venegas MCHC (RBC) [Mass/Vol] 29.0 g/dL Critically low 29.9-35.2 [facility] Comment on above: Performed By: #### B LDCX2 #### [facility] [address] [place] [address] Dr. Celina Venegas MCV (RBC) [Entitic vol] 88.5 fL Normal 81.0-99.0 [facility] Comment on above: Performed By: #### B [id number] #### [facility] [address] [place] [address] Dr. Celina Venegas MONO # 0.5 103/ul Normal 0.3-0.8 [facility] Comment on above: Performed By: #### B LDCX2 #### [facility] [address] [place] [address] Dr. Celina Venegas Monocytes/100 WBC (Bld) 5.2 % Normal 1.7-12.0 [facility] Comment on above: Performed By: #### B LDCX2 #### [facility] [address] [place] [address] Dr. Celina Venegas NEUT # 7.9 103/ul Critically high 1.4-6.5 [facility] Comment on above: Performed By: #### B LDCX2 #### [facility] [address] [place] [address] Dr. Celina Venegas Neutrophils/100 WBC (Bld) 84.6 % Critically high 43.0-75.0 [facility] Comment on above: Performed By: #### B LDCX2 #### [facility] [address] [place] [address] Dr. Celina Venegas Platelet mean volume (Bld) [Entitic vol] 10.9 fL Normal 9.5-13.5 [facility] Comment on above: Performed By: #### B LDCX2 #### [facility] [address] [place] [address] Dr. Celina Venegas PLT 240 103/ul Normal 150-450 [facility] Comment on above: Performed By: #### B [id number] #### [facility] [address] [place] [address] Dr. Celina Venegas RBC 3.58 106/ul Critically low 4.20-5.40 [facility] Comment on above: Performed By: #### B LDCX2 #### [facility] [address] [place] [address] Dr. Celina Venegas WBC 9.3 103/ul Normal 4.0-11.0 [facility] Comment on above: Performed By: #### B LDCX2 #### [facility] [address] [place] [address] ABD/PELV W CONon 09-08-19 CT ABD/PELV W CON EXAMINATION: CT ABD/PELV W CON HISTORY: GENERALIZED ABDOMINAL PAIN ; lower abdominal pain, pressure with urinating COMPARISON: CT abdomen pelvis 09/04/2022 TECHNIQUE: Axial, Coronal, and Sagittal images were obtained without and/or with IV contrast as indicated by examination type. Dose reduction techniques were achieved by using automated exposure control and/or adjustment of mA and/or kV according to patient size and/or use of iterative reconstruction technique. FINDINGS: LUNG BASES: No visible pulmonary or pleural disease. LIVER: No enlargement, atrophy, suspicious density, or significant focal lesion. BILIARY: No dilatation or calcification. PANCREAS: No lesion, fluid collection, or abnormal duct dilatation. SPLEEN: No enlargement or focal lesion. ADRENALS: No mass or enlargement. KIDNEYS: No mass, obstruction, or calcification. BOWEL/MESENTERY: Inflammatory changes and small amount of free fluid in several tiny foci of free air within right lower quadrant consistent with recent surgery. Small opacity within right lower quadrant on prior study. Represent the right ovary today. Previously seen adjacent areas resolved. Numerous diverticula along the length of colon without acute inflammatory changes. Oral contrast has passed through the entire bowel without obstruction. AORTA/VASCULAR: No aneurysm or dissection. RETROPERITONEUM: No mass or adenopathy. LYMPH NODES: No adenopathy. URINARY BLADDER: No visible focal wall thickening, lesion, or calculus. PELVIC ORGANS: No visible mass. Pelvic organs appropriate for patient age. ABDOMINAL WALL: No mass or hernia. BONES: No bony lesion or fracture. OTHER: Negative. IMPRESSION: 1.Postsurgical and post inflammatory changes within pelvis which have slightly improved; no abscess. 2. No bowel obstruction or ileus. 3.Colonic diverticulosis. Electronically authenticated by: THADDEUS LO Date: 2022-09-07 10:55 Normal [facility] MAGNESIUMon 09-07-2022 Magnesium [Mass/Vol] 1.6 mg/dL Critically low 1.8-2.4 [facility] Comment on above: Performed By: #### M G, BNP, CMP #### [facility] [address] [address] [address] Celina Venegas PROF CHEM 8 (BAS METB)on Anion gap [Moles/Vol] 11.6 mmol/L Normal [facility] Comment on above: Performed By: #### M G, BNP, CMP #### [facility] [address] [address] [address] Celina Venegas Calcium [Mass/Vol] 9.5 mg/dL Normal 8.5-10.1 [facility] Comment on above: Performed By: #### M G, BNP, CMP #### [facility] [address] [address] [address] Celina Venegas Chloride [Moles/Vol] 109 mmol/L Critically high 98-107 [facility] Comment on above: Performed By: #### M G, BNP, CMP #### [facility] [address] [address] [address] Celina Venegas CO2 [Moles/Vol] 23.2 mmol/L Normal 21.0-32.0 [facility] Comment on above: Performed By: #### M G, BNP, CMP #### [facility] [address] [address] [address] Celina Venegas Creatinine [Mass/Vol] 0.72 mg/dL Normal 0.55-1.02 [facility] Comment on above: Performed By: #### M G, BNP, CMP #### [facility] [address] [address] [address] Celina Venegas EGFR-AF GERMAN >60 Normal >=60 [facility] Comment on above: Performed By: #### M G, BNP, CMP #### [facility] [address] [address] [address] Celina Venegas EGFR-NON AF GERMAN >60 Normal >=60 [facility] Comment on above: Performed By: #### M G, BNP, CMP #### [facility] [address] [address] [address] Celina Venegas Glucose [Mass/Vol] 79 mg/dL Normal 74-106 [facility] Comment on above: Performed By: #### M G, BNP, CMP #### [facility] [address] [address] [address] Celina Venegas Potassium [Moles/Vol] 3.8 mmol/L Normal 3.5-5.1 [facility] Comment on above: Performed By: #### M G, BNP, CMP #### [facility] [address] [address] [address] Celina Venegas Sodium [Moles/Vol] 140 mmol/L Normal 136-145 [facility] Comment on above: Performed By: #### M G, BNP, CMP #### [facility] [address] [address] [address] Celina Venegas Urea nitrogen [Mass/Vol] 17.0 mg/dL Normal 7.0-18.0 [facility] Comment on above: Performed By: #### M G, BNP, CMP #### [facility] [address] [address] [address] Celina Venegas Urea nitrogen/Creatinine [Mass ratio] 23.6 mg/mg Normal [facility] Comment on above: Performed By: #### M G, BNP, CMP #### [facility] [address] [place] [address] Dr. Celina Venegas CBC AUTO DIFFon 09-06-2022 BASO # 0.0 103/ul Normal 0.0-0.1 [facility] Comment on above: Performed By: #### M G, BNP, CMP #### [facility] [address] [place] [address] Dr. Celina Venegas Basophils/100 WBC (Bld) 0.2 % Normal 0.2-2.0 [facility] Comment on above: Performed By: #### M G, BNP, CMP #### [facility] [address] [place] [address] Dr. Celina Venegas EO # 0.0 103/ul Normal 0.0-0.7 [facility] Comment on above: Performed By: #### M G, BNP, CMP #### [facility] [address] [place] [address] Dr. Celina Venegas Eosinophils/100 WBC (Bld) 0.2 % Critically low 0.9-7.0 [facility] Comment on above: Performed By: #### M G, BNP, CMP #### [facility] [address] [place] [address] Dr. Celina Venegas Erythrocyte distribution width (RBC) [Ratio] 13.9 % Normal 11.0-15.0 [facility] Comment on above: Performed By: #### M G, BNP, CMP #### [facility] [address] [place] [address] Dr. Celina Venegas Hematocrit (Bld) [Volume fraction] 30.6 % Critically low 36.0-48.0 [facility] Comment on above: Performed By: #### M G, BNP, CMP #### [facility] [address] [place] [address] Dr. Celina Venegas Hemoglobin (Bld) [Mass/Vol] 9.2 g/dL Critically low 12.0-16.0 [facility] Comment on above: Performed By: #### M G, BNP, CMP #### [facility] [address] [address] [address] Celina Venegas IG # 0.07 10e3/ul Critically high 0.00-0.03 [facility] Comment on above: Performed By: #### M G, BNP, CMP #### [facility] [address] [address] [address] Celina Venegas IG % 0.6 % Critically high 0.0-0.5 [facility] Comment on above: Performed By: #### M G, BNP, CMP #### [facility] [address] [address] [address] Celina Venegas LYMPH # 0.7 103/ul Critically low 1.2-3.8 [facility] Comment on above: Performed By: #### M G, BNP, CMP #### [facility] [address] [address] [address] Celina Venegas Lymphocytes/100 WBC (Bld) 5.4 % Critically low 20.5-60.0 [facility] Comment on above: Performed By: #### M G, BNP, CMP #### [facility] [address] [address] [address] Celina Venegas MANUAL DIFF REQ NO Normal [facility] Comment on above: Performed By: #### M G, BNP, CMP #### [facility] [address] [address] [address] Celina Venegas MCH (RBC) [Entitic mass] 25.1 pg Critically low 26.7-34.0 [facility] Comment on above: Performed By: #### M G, BNP, CMP #### [facility] [address] [address] [address] eClina Venegas MCHC (RBC) [Mass/Vol] 30.1 g/dL Normal 29.9-35.2 [facility] Comment on above: Performed By: #### M G, BNP, CMP #### [facility] [address] [address] [address] Celina Venegas MCV (RBC) [Entitic vol] 83.6 fL Normal 81.0-99.0 [facility] Comment on above: Performed By: #### M G, BNP, CMP #### [facility] [address] [place] [address] Dr. Celina Venegas MONO # 0.5 103/ul Normal 0.3-0.8 [facility] Comment on above: Performed By: #### M G, BNP, CMP #### [facility] [address] [place] [address] Dr. Celina Venegas Monocytes/100 WBC (Bld) 3.6 % Normal 1.7-12.0 [facility] Comment on above: Performed By: #### M G, BNP, CMP #### [facility] [address] [place] [address] Dr. Celina Venegas NEUT # 11.4 103/ul Critically high 1.4-6.5 [facility] Comment on above: Performed By: #### M G, BNP, CMP #### [facility] [address] [place] [address] Dr. Celina Venegas Neutrophils/100 WBC (Bld) 90.0 % Critically high 43.0-75.0 [facility] Comment on above: Performed By: #### M G, BNP, CMP #### [facility] [address] [place] [address] Dr. Celina Venegas Platelet mean volume (Bld) [Entitic vol] 10.5 fL Normal 9.5-13.5 [facility] Comment on above: Performed By: #### M G, BNP, CMP #### [facility] [address] [place] [address] Dr. Celina Venegas PLT 281 103/ul Normal 150-450 [facility] Comment on above: Performed By: #### M G, BNP, CMP #### [facility] [address] [place] [address] Dr. Celina Venegas RBC 3.66 106/ul Critically low 4.20-5.40 [facility] Comment on above: Performed By: #### M G, BNP, CMP #### [facility] [address] [address] [address] Celina Venegas WBC 12.7 103/ul Critically high 4.0-11.0 [facility] Comment on above: Performed By: #### M G, BNP, CMP #### [facility] [address] [place] [address] Dr. Celina Venegas LIVER PROFILEon 09-06-2022 Albumin [Mass/Vol] 2.4 g/dL Critically low 3.4-5.0 [facility] Comment on above: Performed By: #### M G, BNP, CMP #### [facility] [address] [address] [address] Celina Venegas Albumin/Globulin [Mass ratio] 0.6 {ratio} Normal [facility] Comment on above: Performed By: #### M G, BNP, CMP #### [facility] [address] [place] [address] Dr. Celina Venegas ALP [Catalytic activity/Vol] 118 U/L Critically high 46-116 [facility] Comment on above: Performed By: #### M G, BNP, CMP #### [facility] [address] [place] [address] Dr. Celina Venegas ALT [Catalytic activity/Vol] 16 U/L Normal 14-59 [facility] Comment on above: Performed By: #### M G, BNP, CMP #### [facility] [address] [place] [address] Dr. Celina Venegas AST [Catalytic activity/Vol] 11 U/L Critically low 15-37 [facility] Comment on above: Performed By: #### M G, BNP, CMP #### [facility] [address] [place] [address] Dr. Celina Venegas BILI, CONJUGATED 0.6 mg/dL Critically high 0.0-0.2 [facility] Comment on above: Performed By: #### M G, BNP, CMP #### [facility] [address] [place] [address] Dr. Celina Venegas Bilirubin [Mass/Vol] 1.2 mg/dL Critically high 0.2-1.0 [facility] Comment on above: Performed By: #### M G, BNP, CMP #### [facility] [address] [place] [address] Dr. Celina Venegas Globulin (S) [Mass/Vol] 3.7 g/dL Normal [facility] Comment on above: Performed By: #### M G, BNP, CMP #### [facility] [address] [place] [address] Dr. Celina Venegas Protein [Mass/Vol] 6.1 g/dL Critically low 6.4-8.2 [facility] Comment on above: Performed By: #### M G, BNP, CMP #### [facility] [address] [place] [address] Dr. Celina Venegas MAGNESIUMon 09-06-2022 Magnesium [Mass/Vol] 1.4 mg/dL Critically low 1.8-2.4 [facility] Comment on above: Performed By: #### M G, BNP, CMP #### [facility] [address] [place] [address] Dr. Celina Venegas PROF CHEM 8 (BAS METB)on Anion gap [Moles/Vol] 12.5 mmol/L Normal [facility] Comment on above: Performed By: #### M G, BNP, CMP #### [facility] [address] [place] [address] Dr. Celina Venegas Calcium [Mass/Vol] 9.3 mg/dL Normal 8.5-10.1 [facility] Comment on above: Performed By: #### M G, BNP, CMP #### [facility] [address] [place] [address] Dr. Celina Venegas Chloride [Moles/Vol] 105 mmol/L Normal 98-107 [facility] Comment on above: Performed By: #### M G, BNP, CMP #### [facility] [address] [place] [address] Dr. Celina Venegas CO2 [Moles/Vol] 23.6 mmol/L Normal 21.0-32.0 [facility] Comment on above: Performed By: #### M G, BNP, CMP #### [facility] [address] [address] [address] Celina Venegas Creatinine [Mass/Vol] 0.80 mg/dL Normal 0.55-1.02 [facility] Comment on above: Performed By: #### M G, BNP, CMP #### [facility] [address] [address] [address] Celina Venegas EGFR-AF GERMAN >60 Normal >=60 [facility] Comment on above: Performed By: #### M G, BNP, CMP #### [facility] [address] [address] [address] Celina Venegas EGFR-NON AF GERMAN >60 Normal >=60 [facility] Comment on above: Performed By: #### M G, BNP, CMP #### [facility] [address] [address] [address] Celina Venegas Glucose [Mass/Vol] 106 mg/dL Normal 74-[address] [facility] Comment on above: Performed By: #### M G, BNP, CMP #### [facility] [address] [address] [address] Celina Venegas Potassium [Moles/Vol] 3.1 mmol/L Critically low 3.5-5.1 [facility] Comment on above: Performed By: #### M G, BNP, CMP #### [facility] [address] [address] [address] Celina Venegas Sodium [Moles/Vol] 138 mmol/L Normal 136-[address] [facility] Comment on above: Performed By: #### M G, BNP, CMP #### [facility] [address] [address] [address] Celina Venegas Urea nitrogen [Mass/Vol] 19.0 mg/dL Critically high 7.0-18.0 [facility] Comment on above: Performed By: #### M G, BNP, CMP #### [facility] [address] [address] [address] Celina Venegas Urea nitrogen/Creatinine [Mass ratio] 23.8 mg/mg Normal [facility] Comment on above: Performed By: #### M G, BNP, CMP #### [facility] [address] [address] [address] Celina Venegas XR ABD FLAT UP_PA Viktor 09-06 XR ABD FLAT UP_PA CH EXAMINATION: XR ABD FLAT UP_PA CH HISTORY: NAUSEA WITH VOMITING, UNSPECIFIED COMPARISON: XR chest 09/04/2022 FINDINGS: LUNGS: Small patchy opacity obscuring the left lateral costophrenic angle. MEDIASTINUM: No abnormal widening. BOWEL GAS PATTERN: Non-obstructed. Normal bowel gas pattern. FREE AIR: None. CALCIFICATIONS: None significant. BONES: No fracture or visible bone lesion. OTHER: Negative. IMPRESSION: 1. New mild lingular infiltrates suggestive of pneumonia. 2. Unremarkable abdomen. Electronically authenticated by: THADDEUS LO Date: 2022-09-06 17:36 Normal [facility] CBC AUTO DIFFon 09-05-2022 BASO # 0.0 103/ul Normal 0.0-0.1 [facility] Comment on above: Performed By: #### C BC #### [facility] [address] [address] [address] Celina Venegas Basophils/100 WBC (Bld) 0.1 % Critically low 0.2-2.0 [facility] Comment on above: Performed By: #### C BC #### [facility] [address] [place] [address] Dr. Celina Venegas EO # 0.0 103/ul Normal 0.0-0.7 [facility] Comment on above: Performed By: #### C BC #### [facility] [address] [address] [address] Celina Venegas Eosinophils/100 WBC (Bld) 0.0 % Critically low 0.9-7.0 [facility] Comment on above: Performed By: #### C BC #### [facility] [address] [place] [address] Dr. Celina Venegas Erythrocyte distribution width (RBC) [Ratio] 13.8 % Normal 11.0-15.0 [facility] Comment on above: Performed By: #### C BC #### [facility] [address] [place] [address] Dr. Celina Venegas Hematocrit (Bld) [Volume fraction] 35.8 % Critically low 36.0-48.0 [facility] Comment on above: Performed By: #### C BC #### [facility] [address] [place] [address] Dr. Celina Venegas Hemoglobin (Bld) [Mass/Vol] 11.1 g/dL Critically low 12.0-16.0 [facility] Comment on above: Performed By: #### C BC #### [facility] [address] [place] [address] Dr. Celina Venegas IG # 0.08 10e3/ul Critically high 0.00-0.03 [facility] Comment on above: Performed By: #### C BC #### [facility] [address] [place] [address] Dr. Celina Venegas IG % 0.4 % Normal 0.0-0.5 [facility] Comment on above: Performed By: #### C BC #### [facility] [address] [place] [address] Dr. Celina Venegas LYMPH # 0.6 103/ul Critically low 1.2-3.8 [facility] Comment on above: Performed By: #### C BC #### [facility] [address] [place] [address] Dr. Celina Venegas Lymphocytes/100 WBC (Bld) 3.4 % Critically low 20.5-60.0 [facility] Comment on above: Performed By: #### C BC #### [facility] [address] [place] [address] Dr. Celina Venegas MANUAL DIFF REQ NO Normal [facility] Comment on above: Performed By: #### C BC #### [facility] [address] [place] [address] Dr. Celina Venegas MCH (RBC) [Entitic mass] 25.5 pg Critically low 26.7-34.0 [facility] Comment on above: Performed By: #### C BC #### [facility] [address] [place] [address] Dr. Celina Venegas MCHC (RBC) [Mass/Vol] 31.0 g/dL Normal 29.9-35.2 [facility] Comment on above: Performed By: #### C BC #### [facility] [address] [address] [address] Celina Venegas MCV (RBC) [Entitic vol] 82.1 fL Normal 81.0-99.0 [facility] Comment on above: Performed By: #### C BC #### [facility] [address] [address] [address] Celina Venegas MONO # 0.5 103/ul Normal 0.3-0.8 [facility] Comment on above: Performed By: #### C BC #### [facility] [address] [place] [address] Dr. Celina Venegas Monocytes/100 WBC (Bld) 2.9 % Normal 1.7-12.0 [facility] Comment on above: Performed By: #### C BC #### [facility] [address] [address] [address] Celina Venegas NEUT # 17.3 103/ul Critically high 1.4-6.5 [facility] Comment on above: Performed By: #### C BC #### [facility] [address] [place] [address] Dr. Celina Venegas Neutrophils/100 WBC (Bld) 93.2 % Critically high 43.0-75.0 [facility] Comment on above: Performed By: #### C BC #### [facility] [address] [address] [address] Celina Venegas Platelet mean volume (Bld) [Entitic vol] 10.1 fL Normal 9.5-13.5 [facility] Comment on above: Performed By: #### C BC #### [facility] [address] [place] [address] Dr. Celina Venegas PLT 367 103/ul Normal 150-450 [facility] Comment on above: Performed By: #### C BC #### [facility] [address] [place] [address] Dr. Celina Venegas RBC 4.36 106/ul Normal 4.20-5.40 [facility] Comment on above: Performed By: #### C BC #### [facility] [address] [place] [address] Dr. Celina Venegas WBC 18.6 103/ul Critically high 4.0-11.0 [facility] Comment on above: Performed By: #### C BC #### [facility] [address] [place] [address] Dr. Celina Venegas LIVER PROFILEon 09-05-2022 Albumin [Mass/Vol] 3.0 g/dL Critically low 3.4-5.0 [facility] Comment on above: Performed By: #### H STROPN #### [facility] [address] [place] [address] Dr. Celina Venegas Albumin/Globulin [Mass ratio] 0.7 {ratio} Normal [facility] Comment on above: Performed By: #### H STROPN #### [facility] [address] [place] [address] Dr. Celina Venegas ALP [Catalytic activity/Vol] 132 U/L Critically high 46-116 [facility] Comment on above: Performed By: #### H STROPN #### [facility] [address] [place] [address] Dr. Celina Venegas ALT [Catalytic activity/Vol] 20 U/L Normal 14-59 [facility] Comment on above: Performed By: #### H STROPN #### [facility] [address] [place] [address] Dr. Celina Venegas AST [Catalytic activity/Vol] 15 U/L Normal 15-37 [facility] Comment on above: Performed By: #### H STROPN #### [facility] [address] [place] [address] Dr. Celina Venegas BILI, CONJUGATED 0.7 mg/dL Critically high 0.0-0.2 [facility] Comment on above: Performed By: #### H STROPN #### [facility] [address] [place] [address] Dr. Celina Venegas Bilirubin [Mass/Vol] 1.4 mg/dL Critically high 0.2-1.0 [facility] Comment on above: Performed By: #### H STROPN #### [facility] [address] [address] [address] Celina Venegas Globulin (S) [Mass/Vol] 4.1 g/dL Normal [facility] Comment on above: Performed By: #### H STROPN #### [facility] [address] [place] [address] Dr. Celina Venegas Protein [Mass/Vol] 7.1 g/dL Normal 6.4-8.2 [facility] Comment on above: Performed By: #### H STROPN #### [facility] [address] [place] [address] Dr. Celina Venegas MAGNESIUMon 09-05-2022 Magnesium [Mass/Vol] 1.5 mg/dL Critically low 1.8-2.4 [facility] Comment on above: Performed By: #### C BC #### [facility] [address] [place] [address] Dr. Celina Venegas MRI ABDOMEN WO CONon 023 MRI ABDOMEN WO CON EXAMINATION: MRI ABDOMEN WO CON HISTORY: Acquired dilation of bile duct COMPARISON: CT abdomen pelvis 09/04/2022, 08/20/2022 TECHNIQUE: MRCP was performed without contrast for evaluation of the common bile duct and pancreatic duct. FINDINGS: GALLBLADDER: No abnormal distention, wall thickening, mass, or free fluid. BILE DUCTS: Dilated common bile duct throughout its length, 9 mm. No stone, mass, wall thickening. No significant dilation of the intrahepatic bile ducts. PANCREAS: No stricture, abnormal dilation, fluid collection, mass, or accessory duct. OTHER: Negative. IMPRESSION: 1. Abnormally dilated common bile duct throughout its length. No mass, stones, stricture, or suspicious findings to account for this dilation. 2. Normal appearance of pancreas and pancreatic duct. 3. Unremarkable gallbladder. Electronically authenticated by: THADDEUS LO Date: 2022-09-05 13:29 Normal [facility] PROF CHEM 8 (BAS METB)on Anion gap [Moles/Vol] 13.5 mmol/L Normal [facility] Comment on above: Performed By: #### C BC #### [facility] [address] [address] [address] Celina Venegas Calcium [Mass/Vol] 8.8 mg/dL Normal 8.5-10.1 [facility] Comment on above: Performed By: #### C BC #### [facility] [address] [address] [address] Celina Venegas Chloride [Moles/Vol] 106 mmol/L Normal 98-107 [facility] Comment on above: Performed By: #### C BC #### [facility] [address] [address] [address] Celina Venegas CO2 [Moles/Vol] 24.0 mmol/L Normal 21.0-32.0 [facility] Comment on above: Performed By: #### C BC #### [facility] [address] [address] [address] Celina Venegas Creatinine [Mass/Vol] 1.31 mg/dL Critically high 0.55-1.02 [facility] Comment on above: Performed By: #### C BC #### [facility] [address] [address] [address] Celina Venegas EGFR-AF GERMAN 51 mL/min/1.73m2 Critically low >=60 [facility] Comment on above: Performed By: #### C BC #### [facility] [address] [address] [address] Celina Venegas EGFR-NON AF GERMAN 42 mL/min/1.73m2 Critically low >=60 [facility] Comment on above: Performed By: #### C BC #### [facility] [address] [address] [address] Celina Venegas Glucose [Mass/Vol] 127 mg/dL Critically high 74-106 [facility] Comment on above: Performed By: #### C BC #### [facility] [address] [address] [address] Celina Venegas Potassium [Moles/Vol] 3.5 mmol/L Normal 3.5-5.1 [facility] Comment on above: Performed By: #### C BC #### [facility] [address] [address] [address] Celina Venegas Sodium [Moles/Vol] 140 mmol/L Normal 136-145 [facility] Comment on above: Performed By: #### C BC #### [facility] [address] [place] [address] Dr. Celina Venegas Urea nitrogen [Mass/Vol] 40.0 mg/dL Critically high 7.0-18.0 [facility] Comment on above: Performed By: #### C BC #### [facility] [address] [place] [address] Dr. Celina Venegas Urea nitrogen/Creatinine [Mass ratio] 30.5 mg/mg Normal [facility] Comment on above: Performed By: #### C BC #### [facility] [address] [place] [address] Dr. Celina Venegas TROPONIN, HIGH SENSITIVITYon 09-05-2022 HSTROP 48.5 pg/mL Normal 4.0-51.3 [facility] Comment on above: Result Comment: CUT- OFF POINTS HAVE BEEN ESTABLISHED BASED ON THE FOURTH UNIVERSAL DEFINITIONS OF MYOCARDIAL INFARCTION. THE UPPER REFERENCE LIMIT (URL) OF TROPONIN, DEFINED THE 99TH PERCENTILE OF cTnI DISTRIBUTION IN A REFERENCE POPULATION, HAS BEEN CONFIRMED THE DECISION THRESHOLD FOR [place] DIAGNOSIS. Performed By: #### B [id number] #### [facility] [address] [place] [address] Dr. Celina Venegas AMYLASEon 09-04-2022 Amylase [Catalytic activity/Vol] 65 U/L Normal 25-115 [facility] Comment on above: Performed By: #### M G, BNP, CMP #### [facility] [address] [place] [address] Dr. Celina Venegas CBC AUTO DIFFon 09-04-2022 BASO # 0.0 103/ul Normal 0.0-0.1 [facility] Comment on above: Performed By: #### B LDCX2 #### [facility] [address] [place] [address] Dr. Celina Venegas Basophils/100 WBC (Bld) 0.2 % Normal 0.2-2.0 [facility] Comment on above: Performed By: #### B LDCX2 #### [facility] [address] [place] [address] Dr. Celina Venegas EO # 0.0 103/ul Normal 0.0-0.7 [facility] Comment on above: Performed By: #### B LDCX2 #### [facility] [address] [place] [address] Dr. Celina Venegas Eosinophils/100 WBC (Bld) 0.2 % Critically low 0.9-7.0 [facility] Comment on above: Performed By: #### B LDCX2 #### [facility] [address] [place] [address] Dr. Celina Venegas Erythrocyte distribution width (RBC) [Ratio] 13.7 % Normal 11.0-15.0 [facility] Comment on above: Performed By: #### B LDCX2 #### [facility] [address] [place] [address] Dr. Celina Venegas Hematocrit (Bld) [Volume fraction] 41.7 % Normal 36.0-48.0 [facility] Comment on above: Performed By: #### B LDCX2 #### [facility] [address] [place] [address] Dr. Celina Venegas Hemoglobin (Bld) [Mass/Vol] 13.3 g/dL Normal 12.0-16.0 [facility] Comment on above: Performed By: #### B LDCX2 #### [facility] [address] [place] [address] Dr. Celina Venegas IG # 0.12 10e3/ul Critically high 0.00-0.03 [facility] Comment on above: Performed By: #### B LDCX2 #### [facility] [address] [place] [address] Dr. Celina Venegas IG % 0.6 % Critically high 0.0-0.5 [facility] Comment on above: Performed By: #### B LDCX2 #### [facility] [address] [place] [address] Dr. Celina Venegas LYMPH # 1.2 103/ul Normal 1.2-3.8 [facility] Comment on above: Performed By: #### B LDCX2 #### [facility] [address] [place] [address] Dr. Celina Venegas Lymphocytes/100 WBC (Bld) 5.7 % Critically low 20.5-60.0 [facility] Comment on above: Performed By: #### B LDCX2 #### [facility] [address] [place] [address] Dr. Celina Venegas MANUAL DIFF REQ NO Normal [facility] Comment on above: Performed By: #### B LDCX2 #### [facility] [address] [place] [address] Dr. Celina Venegas MCH (RBC) [Entitic mass] 25.3 pg Critically low 26.7-34.0 [facility] Comment on above: Performed By: #### B LDCX2 #### [facility] [address] [place] [address] Dr. Celina Venegas MCHC (RBC) [Mass/Vol] 31.9 g/dL Normal 29.9-35.2 [facility] Comment on above: Performed By: #### B LDCX2 #### [facility] [address] [place] [address] Dr. Celina Venegas MCV (RBC) [Entitic vol] 79.4 fL Critically low 81.0-99.0 [facility] Comment on above: Performed By: #### B LDCX2 #### [facility] [address] [place] [address] Dr. Celina Venegas MONO # 1.0 103/ul Critically high 0.3-0.8 [facility] Comment on above: Performed By: #### B LDCX2 #### [facility] [address] [place] [address] Dr. Celina Venegas Monocytes/100 WBC (Bld) 4.5 % Normal 1.7-12.0 [facility] Comment on above: Performed By: #### B LDCX2 #### [facility] [address] [place] [address] Dr. Celina Venegas NEUT # 18.8 103/ul Critically high 1.4-6.5 [facility] Comment on above: Performed By: #### B LDCX2 #### [facility] [address] [place] [address] Dr. Celina Venegas Neutrophils/100 WBC (Bld) 88.8 % Critically high 43.0-75.0 [facility] Comment on above: Performed By: #### B LDCX2 #### [facility] [address] [place] [address] Dr. Celina Venegas Platelet mean volume (Bld) [Entitic vol] 10.0 fL Normal 9.5-13.5 [facility] Comment on above: Performed By: #### B LDCX2 #### [facility] [address] [place] [address] Dr. Celina Venegas PLT 563 103/ul Critically high 150-450 [facility] Comment on above: Performed By: #### B LDCX2 #### [facility] [address] [place] [address] Dr. Celina Venegas RBC 5.25 106/ul Normal 4.20-5.40 [facility] Comment on above: Performed By: #### B LDCX2 #### [facility] [address] [place] [address] Dr. Celina Venegas WBC 21.2 103/ul Critically high 4.0-11.0 [facility] Comment on above: Performed By: #### B LDCX2 #### [facility] [address] [place] [address] ABD/PELV W CONon 09-05-19 CT ABD/PELV W CON EXAM: CT ABD/PELV W CON TECHNIQUE: Axial CT images were obtained of the abdomen and pelvis with intravenous contrast. Sagittal and coronal reformatted images were also obtained. Dose reduction techniques were achieved by using automated exposure control and/or adjustment of mA and/or kV according to patient size and/or use of iterative reconstruction technique. HISTORY: GENERALIZED ABDOMINAL PAIN COMPARISON: 08/20/2022 FINDINGS: Lower chest: The lower lungs are clear. Liver: The liver is homogeneous with normal contours and normal size. Gallbladder: The gallbladder is unremarkable. There is increased mild dilatation of the central biliary tree with the common bile duct measuring up to 9.7 mm. No definite obstructing stone or mass. Pancreas: The pancreas is homogeneous without evidence for mass lesion or inflammation. Spleen: The spleen is unremarkable without evidence for mass lesion. Adrenal glands: The adrenal glands are unremarkable Kidneys and bladder: The kidneys are unremarkable with no evidence for mass lesion, hydronephrosis or inflammation. The ureters demonstrate normal caliber. The urinary bladder is unremarkable. GI Tract: Stomach is unremarkable. 2.5 cm diverticulum of the duodenum. Additional smaller diverticulum of the third portion of the duodenum. The appendix has been surgically removed.Diverticula are seen of the colon, more significant involving the distal colon. The visualized large bowel is otherwise unremarkable. Reproductive: Unremarkable Lymph nodes: Stable mildly prominent portacaval and aortocaval lymph nodes. Vascular: The aorta is not dilated. Mesenteric vessels are patent. Peritoneum: Postsurgical edema in the right lower quadrant. 1.6 cm fluid and gas collection within the right hemipelvis, suspicious for small abscess. Abdominal wall: Unremarkable without acute abnormality. ___ IMPRESSION: 1. Postoperative changes in the right lower quadrant, related to recent appendectomy. There is a small fluid and gas loculation within the right hemipelvis, suspicious for a small developing abscess. 2. Mild increasing dilatation of the biliary tree without gross obstructing stone or mass. Consider further evaluation with MRCP. Electronically authenticated by: RAJ EDGAR Date: 2022-09-04 21:17 Normal [facility] CULTURE BLOODon 09-04-2022 Microscopic examination of blood, culture Culture Observations: NO GROWTH AT 5 DAYS. Normal [facility] Comment on above: Performed By: #### B [id number] #### [facility] [address] [place], [place] [address] Dr. Celina Venegas Performed By: #### H STROPN #### [facility] [address] [place], [place] [address] Dr. Celina Venegas ER URINE PROFILEon 3 Bilirubin Ql (U) Negative Normal NEGATIVE [facility] Comment on above: Performed By: #### H STROPN #### [facility] [address] [address] [address] Celina Venegas Clarity (U) CLEAR Normal CLEAR [facility] Comment on above: Performed By: #### H STROPN #### [facility] [address] [place] [address] Dr. Celina Venegas Color (U) LT. YELLOW Normal YELLOW [facility] Comment on above: Performed By: #### H STROPN #### [facility] [address] [place] [address] Dr. Celina SHEPARD A micrscopic examination will be performed if indicated. Normal [facility] Comment on above: Performed By: #### H STROPN #### [facility] [address] [place] [address] Dr. Celina Venegas Glucose Ql (U) Negative Normal NEGATIVE [facility] Comment on above: Performed By: #### H STROPN #### [facility] [address] [place] [address] Dr. Celina Venegas Hemoglobin Ql (U) Negative Normal NEGATIVE [facility] Comment on above: Performed By: #### H STROPN #### [facility] [address] [place] [address] Dr. Celina Venegas Ketones Ql (U) TRACE Abnormal NEGATIVE [facility] Comment on above: Performed By: #### H STROPN #### [facility] [address] [place] [address] Dr. Celina Venegas LEUKOCYTES Negative Normal NEGATIVE [facility] Comment on above: Performed By: #### H STROPN #### [facility] [address] [address] [address] Celina Venegas Nitrite Ql (U) Negative Normal NEGATIVE [facility] Comment on above: Performed By: #### H STROPN #### [facility] [address] [place] [address] Dr. Celina Venegas pH (U) 6.0 [pH] Normal 5-9 [facility] Comment on above: Performed By: #### H STROPN #### [facility] [address] [address] [address] Celina Venegas SPEC GRAVITY <=1.005 Abnormal 1.005-<=1.025 [facility] Comment on above: Performed By: #### H STROPN #### [facility] [address] [address] [address] Celina Venegas UA PROTEIN TRACE Normal NEGATIVE/ TRACE [facility] Comment on above: Performed By: #### H STROPN #### [facility] [address] [place] [address] Dr. Celina Venegas UR MICRO IND NOT INDICATED Normal [facility] Comment on above: Performed By: #### H STROPN #### [facility] [address] [place] [address] Dr. Celina Venegas Urobilinogen Qn (U) 0.2 {Pamela'U}/dL Normal 0.2 - 1. 0 [facility] Comment on above: Performed By: #### H STROPN #### [facility] [address] [place] [address] Dr. Celina Venegas LACTATE/LACTIC ACIDon 2022 Lactate [Moles/Vol] 1.4 mmol/L Normal 0.4-2.0 [facility] Comment on above: Performed By: #### B LDCX2 #### [facility] [address] [place] [address] Dr. Celina Venegas LIPASEon 09-04-2022 Lipase [Catalytic activity/Vol] 194.0 U/L Normal 73.0-393.0 [facility] Comment on above: Performed By: #### M G, BNP, CMP #### [facility] [address] [place] [address] Dr. Celina Venegas PREG HCG QUALon 09-04-2022 , QUAL Negative Normal NEGATIVE [facility] Comment on above: Performed By: #### P REG #### [facility] [address] [place] [address] Dr. Celina Venegas PROF 14(COMP METB)on 023 Albumin [Mass/Vol] 3.6 g/dL Normal 3.4-5.0 [facility] Comment on above: Performed By: #### M G, BNP, CMP #### [facility] [address] [address] [address] Celina Venegas Albumin/Globulin [Mass ratio] 0.8 {ratio} Normal [facility] Comment on above: Performed By: #### M G, BNP, CMP #### [facility] [address] [address] [address] Celina Venegas ALP [Catalytic activity/Vol] 175 U/L Critically high 46-116 [facility] Comment on above: Performed By: #### M G, BNP, CMP #### [facility] [address] [address] [address] Celina Venegas ALT [Catalytic activity/Vol] 22 U/L Normal 14-59 [facility] Comment on above: Performed By: #### M G, BNP, CMP #### [facility] [address] [address] [address] Celina Venegas Anion gap [Moles/Vol] 15.8 mmol/L Normal [facility] Comment on above: Performed By: #### M G, BNP, CMP #### [facility] [address] [place] [address] Dr. Celina Venegas AST [Catalytic activity/Vol] 16 U/L Normal 15-37 [facility] Comment on above: Performed By: #### M G, BNP, CMP #### [facility] [address] [address] [address] Celina Venegas Bilirubin [Mass/Vol] 0.7 mg/dL Normal 0.2-1.0 [facility] Comment on above: Performed By: #### M G, BNP, CMP #### [facility] [address] [place] [address] Dr. Celina Venegas Calcium [Mass/Vol] 9.2 mg/dL Normal 8.5-10.1 [facility] Comment on above: Performed By: #### M G, BNP, CMP #### [facility] [address] [address] [address] Celina Venegas Chloride [Moles/Vol] 99 mmol/L Normal 98-107 [facility] Comment on above: Performed By: #### M G, BNP, CMP #### [facility] [address] [address] [address] Celina Venegas CO2 [Moles/Vol] 25.1 mmol/L Normal 21.0-32.0 [facility] Comment on above: Performed By: #### M G, BNP, CMP #### [facility] [address] [place] [address] Dr. Celina Venegas Creatinine [Mass/Vol] 1.90 mg/dL Critically high 0.55-1.02 [facility] Comment on above: Performed By: #### M G, BNP, CMP #### [facility] [address] [place] [address] Dr. Celina Venegas EGFR-AF GERMAN 34 mL/min/1.73m2 Critically low >=60 [facility] Comment on above: Performed By: #### M G, BNP, CMP #### [facility] [address] [place] [address] Dr. Celina Venegas EGFR-NON AF GERMAN 28 mL/min/1.73m2 Critically low >=60 [facility] Comment on above: Performed By: #### M G, BNP, CMP #### [facility] [address] [place] [address] Dr. Celina Venegas Globulin (S) [Mass/Vol] 4.4 g/dL Normal [facility] Comment on above: Performed By: #### M G, BNP, CMP #### [facility] [address] [place] [address] Dr. Celina Venegas Glucose [Mass/Vol] 139 mg/dL Critically high 74-106 [facility] Comment on above: Performed By: #### M G, BNP, CMP #### [facility] [address] [place] [address] Dr. Celina Venegas Potassium [Moles/Vol] 2.8 mmol/L Critically low 3.5-5.1 [facility] Comment on above: Performed By: #### M G, BNP, CMP #### [facility] [address] [address] [address] Celina Venegas Protein [Mass/Vol] 8.0 g/dL Normal 6.4-8.2 [facility] Comment on above: Performed By: #### M G, BNP, CMP #### [facility] [address] [address] [address] Celina Venegas Sodium [Moles/Vol] 136 mmol/L Normal 136-[address] [facility] Comment on above: Performed By: #### M G, BNP, CMP #### [facility] [address] [address] [address] Celina Venegas Urea nitrogen [Mass/Vol] 49.0 mg/dL Critically high 7.0-18.0 [facility] Comment on above: Performed By: #### M G, BNP, CMP #### [facility] [address] [address] [address] Celina Venegas Urea nitrogen/Creatinine [Mass ratio] 25.8 mg/mg Normal [facility] Comment on above: Performed By: #### M G, BNP, CMP #### [facility] [address] [address] [address] Celina Venegas TROPONIN, HIGH SENSITIVITYon 09-04-2022 HSTROP 63.4 pg/mL Critically high 4.0-51.3 [facility] Comment on above: Result Comment: CUT- OFF POINTS HAVE BEEN ESTABLISHED BASED ON THE FOURTH UNIVERSAL DEFINITIONS OF MYOCARDIAL INFARCTION. THE UPPER REFERENCE LIMIT (URL) OF TROPONIN, DEFINED THE 99TH PERCENTILE OF cTnI DISTRIBUTION IN A REFERENCE POPULATION, HAS BEEN CONFIRMED THE DECISION THRESHOLD FOR [place] DIAGNOSIS. Performed By: #### B [id number] #### [facility] [address] [address] [address] Celina Venegas XR CHEST 1 Von 09-04-2022 XR CHEST 1 V EXAMINATION: XR CHES T 1 V HISTORY: Abdominal pain on and off since Monday COMPARISON: Chest x-rays 03/04/2010 TECHNIQUE: Portable chest FINDINGS: The lung parenchyma is free of consolidation or infiltrate. No pneumothorax or pleural effusion. The cardiac, mediastinal and hilar contours are normal. The visualized osseous structures exhibit no gross abnormality. IMPRESSION: No acute cardiopulmonary abnormality. Electronically authenticated by: FELICIANO QUIROZ Date: 2022-09-04 20:25 Normal [facility] CARDIAC LOUISE ADMITon 023 CK [Catalytic activity/Vol] 10 U/L Critically low 26-192 [facility] Comment on above: Performed By: #### B [id number] #### [facility] [address] [address] [address] Celina Venegas CK.MB [Mass/Vol] ng/mL Normal <=3.60 [facility] Comment on above: Performed By: #### B [id number] #### [facility] [address] [place] [address] Dr. Celina Venegas HSTROP 11.8 pg/mL Normal 4.0-51.3 [facility] Comment on above: Result Comment: CUT- OFF POINTS HAVE BEEN ESTABLISHED BASED ON THE FOURTH UNIVERSAL DEFINITIONS OF MYOCARDIAL INFARCTION. THE UPPER REFERENCE LIMIT (URL) OF TROPONIN, DEFINED THE 99TH PERCENTILE OF cTnI DISTRIBUTION IN A REFERENCE POPULATION, HAS BEEN CONFIRMED THE DECISION THRESHOLD FOR [place] DIAGNOSIS. Performed By: #### B [id number] #### [facility] [address] [place] [address] Dr. Celina Venegas SHAWANDA 27 ng/mL Normal 9-82 [facility] Comment on above: Performed By: #### B [id number] #### [facility] [address] [address] [address] Celina Venegas CBC AUTO DIFFon 08-20-2022 BASO # 0.0 103/ul Normal 0.0-0.1 [facility] Comment on above: Performed By: #### P REG #### [facility] [address] [place] [address] Dr. Celina Venegas Basophils/100 WBC (Bld) 0.3 % Normal 0.2-2.0 [facility] Comment on above: Performed By: #### P REG #### [facility] [address] [place] [address] Dr. Celina Venegas EO # 0.0 103/ul Normal 0.0-0.7 [facility] Comment on above: Performed By: #### P REG #### [facility] [address] [address] [address] Celina Venegas Eosinophils/100 WBC (Bld) 0.3 % Critically low 0.9-7.0 [facility] Comment on above: Performed By: #### P REG #### [facility] [address] [place] [address] Dr. Celina Venegas Erythrocyte distribution width (RBC) [Ratio] 12.7 % Normal 11.0-15.0 [facility] Comment on above: Performed By: #### P REG #### [facility] [address] [place] [address] Dr. Celina Venegas Hematocrit (Bld) [Volume fraction] 35.8 % Critically low 36.0-48.0 [facility] Comment on above: Performed By: #### P REG #### [facility] [address] [place] [address] Dr. Celina Vengeas Hemoglobin (Bld) [Mass/Vol] 11.5 g/dL Critically low 12.0-16.0 [facility] Comment on above: Performed By: #### P REG #### [facility] [address] [place] [address] Dr. Celina Venegas IG # 0.04 10e3/ul Critically high 0.00-0.03 [facility] Comment on above: Performed By: #### P REG #### [facility] [address] [place] [address] Dr. Celina Venegas IG % 0.4 % Normal 0.0-0.5 [facility] Comment on above: Performed By: #### P REG #### [facility] [address] [place] [address] Dr. Celina Venegas LYMPH # 1.6 103/ul Normal 1.2-3.8 [facility] Comment on above: Performed By: #### P REG #### [facility] [address] [place] [address] Dr. Celina Venegas Lymphocytes/100 WBC (Bld) 14.0 % Critically low 20.5-60.0 [facility] Comment on above: Performed By: #### P REG #### [facility] [address] [address] [address] Celina Venegas MANUAL DIFF REQ NO Normal [facility] Comment on above: Performed By: #### P REG #### [facility] [address] [address] [address] Celina Venegas MCH (RBC) [Entitic mass] 25.8 pg Critically low 26.7-34.0 [facility] Comment on above: Performed By: #### P REG #### [facility] [address] [place] [address] Dr. Celina Venegas MCHC (RBC) [Mass/Vol] 32.1 g/dL Normal 29.9-35.2 [facility] Comment on above: Performed By: #### P REG #### [facility] [address] [place] [address] Dr. Celina Venegas MCV (RBC) [Entitic vol] 80.3 fL Critically low 81.0-99.0 [facility] Comment on above: Performed By: #### P REG #### [facility] [address] [address] [address] Celina Venegas MONO # 0.9 103/ul Critically high 0.3-0.8 [facility] Comment on above: Performed By: #### P REG #### [facility] [address] [place] [address] Dr. Celina Venegas Monocytes/100 WBC (Bld) 8.2 % Normal 1.7-12.0 [facility] Comment on above: Performed By: #### P REG #### [facility] [address] [place] [address] Dr. Celina Venegas NEUT # 8.7 103/ul Critically high 1.4-6.5 [facility] Comment on above: Performed By: #### P REG #### [facility] [address] [place] [address] Dr. Celina Venegas Neutrophils/100 WBC (Bld) 76.8 % Critically high 43.0-75.0 [facility] Comment on above: Performed By: #### P REG #### [facility] [address] [address] [address] Celina Venegas Platelet mean volume (Bld) [Entitic vol] 10.7 fL Normal 9.5-13.5 [facility] Comment on above: Performed By: #### P REG #### [facility] [address] [address] [address] Celina Venegas PLT 357 103/ul Normal 150-450 [facility] Comment on above: Performed By: #### P REG #### [facility] [address] [address] [address] Celina Venegas RBC 4.46 106/ul Normal 4.20-5.40 [facility] Comment on above: Performed By: #### P REG #### [facility] [address] [address] [address] Celina Venegas WBC 11.4 103/ul Critically high 4.0-11.0 [facility] Comment on above: Performed By: #### P REG #### [facility] [address] [address] [address] ABD/PELV W CONon 08-21-[address] ABD/PELV W CON CT ABD/PELV W CON, 08/20/2022 9:09 AM EDT INDICATION: Right lower quadrant pain COMPARISON: Pelvic and transvaginal ultrasound 03/07/2012. TECHNIQUE: Axial images of the abdomen and pelvis were obtained after the administration of IV contrast. Multiplanar reformatted images were generated and reviewed as needed. Dose reduction techniques were achieved by using automated exposure control and/or adjustment of mA and/or kV according to patient size and/or use of iterative reconstruction technique. FINDINGS: No consolidation or effusion. Mild intrahepatic ductal dilatation most pronounced within the left hepatic lobe. The main portal vein, right and left portal veins and segmental branches are patent. Normal caliber common bile duct. No choledocholithiasis. Gallbladder, pancreas, spleen and adrenals are unremarkable. Symmetric nephrograms without evidence of obstruction. No urolithiasis. No urinary bladder wall thickening or perivesicular fat stranding. Uterus and adnexa are grossly unremarkable. No aortic aneurysm or dissection. The celiac axis, SMA, renal arteries and iliac arteries are patent bilaterally. No aneurysm, dissection or rate limiting stenosis. No bowel obstruction. 2.2 cm diverticulum extending off the third portion of the duodenum (series 5, image 34.) Adjacent enlarged pericaval lymph nodes 1.0 cm short axis. Bowel wall thickening and hyperemia within an enlarged appendix. Extensive fat stranding and phlegmon with inflammation of the base of the cecum and multiple prominent adjacent mesenteric lymph nodes. No pneumatosis, pneumoperitoneum or ascites. No rim-enhancing collection to suggest abscess. No mesenteric or retroperitoneal lymphadenopathy. No acute fracture or dislocation. IMPRESSION: 1. Acute appendicitis with extensive inflammation involving the base of the cecum. No abscess. 2. Pericaval lymphadenopathy within the upper abdomen. 3. Mild intrahepatic ductal dilatation most pronounced within the left hepatic lobe. Differential considerations include stricture, polyp, neoplasm. This may be further evaluated with MRCP. 4. 2.2 cm duodenal diverticulum. No findings to suggest diverticulitis. Findings communicated to Dr. Benton 08/20/2022 at 10:51 AM Electronically authenticated by: KAYDEN AGUILAR Date: 2022-08-20 10:51 Normal [facility] Covid-19 PCR (CVDTB)on SARS-CoV-2 (COVID-19) RNA ELVA+probe Ql (Unsp spec) Not detected Normal NOT DETECTED [facility] Comment on above: Result Comment: When diagnostic testing is negative, the possibility of a false negative should be considered in the context of a patient's recent exposures and the presence of clinical signs and symptoms consistent with SARS-CoV-2. This test is not yet approved or cleared by the [place] FDA. When there are no FDA-approved or cleared tests available, and other criteria are met, FDA can make tests available under an emergency access mechanism called an Emergency Use Authorization (EUA). The EUA for this test is supported by the [place] of Health and Human Service's declaration that circumstances exist to justify the emergency use of in vitro diagnostics for the detection and/or diagnosis of the virus that causes COVID-19. This EUA will remain in effect for the duration of the COVID-19 declaration justifying emergency of IVDs, unless it is terminated or revoked by the FDA (after which the test may no longer be used). Performed By: #### P REG #### [facility] [address] [address] [address] Celina Venegas ER URINE PROFILEon 3 Bilirubin Ql (U) Negative Normal NEGATIVE [facility] Comment on above: Performed By: #### M G, BNP, CMP #### [facility] [address] [address] [address] Celina Venegas Clarity (U) CLEAR Normal CLEAR [facility] Comment on above: Performed By: #### M G, BNP, CMP #### [facility] [address] [place] [address] Dr. Celina Venegas Color (U) YELLOW Normal YELLOW [facility] Comment on above: Performed By: #### M G, BNP, CMP #### [facility] [address] [place] [address] Dr. Celina SHEPARD A micrscopic examination will be performed if indicated. Normal [facility] Comment on above: Performed By: #### M G, BNP, CMP #### [facility] [address] [place] [address] Dr. Celina Venegas Glucose Ql (U) Negative Normal NEGATIVE [facility] Comment on above: Performed By: #### M G, BNP, CMP #### [facility] [address] [place] [address] Dr. Celina Venegas Hemoglobin Ql (U) Negative Normal NEGATIVE [facility] Comment on above: Performed By: #### M G, BNP, CMP #### [facility] [address] [place] [address] Dr. Celina Venegas Ketones Ql (U) Negative Normal NEGATIVE [facility] Comment on above: Performed By: #### M G, BNP, CMP #### [facility] [address] [place] [address] Dr. Celina Venegas LEUKOCYTES Negative Normal NEGATIVE [facility] Comment on above: Performed By: #### M G, BNP, CMP #### [facility] [address] [place] [address] Dr. Celina Venegas Nitrite Ql (U) Negative Normal NEGATIVE [facility] Comment on above: Performed By: #### M G, BNP, CMP #### [facility] [address] [place] [address] Dr. Celina Venegas pH (U) 7.0 [pH] Normal 5-9 [facility] Comment on above: Performed By: #### M G, BNP, CMP #### [facility] [address] [place] [address] Dr. Celina Venegas Protein (U) [Mass/Vol] 30 mg/dL Abnormal NEGATIVE/ TRACE [facility] Comment on above: Performed By: #### M G, BNP, CMP #### [facility] [address] [place] [address] Dr. Celina Venegas SPEC GRAVITY 1.005 Normal 1.005-<=1.025 [facility] Comment on above: Performed By: #### M G, BNP, CMP #### [facility] [address] [place] [address] Dr. Celina Venegas UR MICRO IND INDICATED Normal [facility] Comment on above: Performed By: #### M G, BNP, CMP #### [facility] [address] [place] [address] Dr. Celina Venegas Urobilinogen Qn (U) 1.0 {Pamela'U}/dL Normal 0.2 - 1. 0 [facility] Comment on above: Performed By: #### M G, BNP, CMP #### [facility] [address] [place] [address] Dr. Celina Venegas PROF 14(COMP METB)on 023 Albumin [Mass/Vol] 3.2 g/dL Critically low 3.4-5.0 [facility] Comment on above: Performed By: #### P REG #### [facility] [address] [place] [address] Dr. Celina Venegas Albumin/Globulin [Mass ratio] 0.8 {ratio} Normal [facility] Comment on above: Performed By: #### P REG #### [facility] [address] [place] [address] Dr. Celina Venegas ALP [Catalytic activity/Vol] 190 U/L Critically high 46-116 [facility] Comment on above: Performed By: #### P REG #### [facility] [address] [place] [address] Dr. Celina Venegas ALT [Catalytic activity/Vol] 44 U/L Normal 14-59 [facility] Comment on above: Performed By: #### P REG #### [facility] [address] [address] [address] Celina Venegas Anion gap [Moles/Vol] 15.6 mmol/L Normal [facility] Comment on above: Performed By: #### P REG #### [facility] [address] [address] [address] Celina Venegas AST [Catalytic activity/Vol] 36 U/L Normal 15-37 [facility] Comment on above: Performed By: #### P REG #### [facility] [address] [place] [address] Dr. Celina Venegas Bilirubin [Mass/Vol] 0.8 mg/dL Normal 0.2-1.0 [facility] Comment on above: Performed By: #### P REG #### [facility] [address] [place] [address] Dr. Celina Venegas Calcium [Mass/Vol] 9.7 mg/dL Normal 8.5-10.1 [facility] Comment on above: Performed By: #### P REG #### [facility] [address] [address] [address] Celina Venegas Chloride [Moles/Vol] 104 mmol/L Normal 98-107 [facility] Comment on above: Performed By: #### P REG #### [facility] [address] [address] [address] Celina Venegas CO2 [Moles/Vol] 21.3 mmol/L Normal 21.0-32.0 [facility] Comment on above: Performed By: #### P REG #### [facility] [address] [address] [address] Celina Venegas Creatinine [Mass/Vol] 0.70 mg/dL Normal 0.55-1.02 [facility] Comment on above: Performed By: #### P REG #### [facility] [address] [address] [address] Celina Venegas EGFR-AF GERMAN >60 Normal >=60 [facility] Comment on above: Performed By: #### P REG #### [facility] [address] [address] [address] Celina Venegas EGFR-NON AF GERMAN >60 Normal >=60 [facility] Comment on above: Performed By: #### P REG #### [facility] [address] [address] [address] Celina Venegas Globulin (S) [Mass/Vol] 4.2 g/dL Normal [facility] Comment on above: Performed By: #### P REG #### [facility] [address] [place] [address] Dr. Celina Venegas Glucose [Mass/Vol] 110 mg/dL Critically high 74-106 [facility] Comment on above: Performed By: #### P REG #### [facility] [address] [address] [address] Celina Venegas Potassium [Moles/Vol] 2.9 mmol/L Critically low 3.5-5.1 [facility] Comment on above: Performed By: #### P REG #### [facility] [address] [place] [address] Dr. Celina Venegas Protein [Mass/Vol] 7.4 g/dL Normal 6.4-8.[address] [facility] Comment on above: Performed By: #### P REG #### [facility] [address] [address] [address] Celina Venegas Sodium [Moles/Vol] 137 mmol/L Normal 136-[address] [facility] Comment on above: Performed By: #### P REG #### [facility] [address] [address] [address] Celina Venegas Urea nitrogen [Mass/Vol] 20.0 mg/dL Critically high 7.0-18.0 [facility] Comment on above: Performed By: #### P REG #### [facility] [address] [place] [address] Dr. Celina Venegas Urea nitrogen/Creatinine [Mass ratio] 28.6 mg/mg Normal [facility] Comment on above: Performed By: #### P REG #### [facility] [address] [place] [address] Dr. Celina Venegas URINE MICROSCOPIC ONLYon BACTERIA NONE SEEN Normal NONE SEEN [facility] Comment on above: Performed By: #### M G, BNP, CMP #### [facility] [address] [place] [address] Dr. Celina Venegas Bacteria identified Cx Nom (U) NOT INDICATED Normal [facility] Comment on above: Performed By: #### M G, BNP, CMP #### [facility] [address] [place] [address] Dr. Celina Venegas CAST NONE SEEN Normal NONE SEEN [facility] Comment on above: Performed By: #### M G, BNP, CMP #### [facility] [address] [place] [address] Dr. Celina Venegas Crystals LM Nom (Urine sed) NONE SEEN Normal NONE SEEN [facility] Comment on above: Performed By: #### M G, BNP, CMP #### [facility] [address] [place] [address] Dr. Celina Venegas Epithelial cells LM Ql (Urine sed) RARE Normal NONE SEEN /RARE [facility] Comment on above: Performed By: #### M G, BNP, CMP #### [facility] [address] [place] [address] Dr. Celina Venegas MUCOUS NONE SEEN Normal NONE SEEN [facility] Comment on above: Performed By: #### M G, BNP, CMP #### [facility] [address] [place] [address] Dr. Celina Venegas RBC NONE SEEN Abnormal 0-2 [facility] Comment on above: Performed By: #### M G, BNP, CMP #### [facility] [address] [place] [address] Dr. Celina Venegas WBC 0-2 Abnormal NONE SEEN [facility] Comment on above: Performed By: #### M G, BNP, CMP #### [facility] [address] [address] [address] Celina Venegas Encounters Encounter Date Encounter Type Care Provider Facility Start: 04-18-2023 End: 04-18-2023 ambulatory [facility] Start: 03-07-2023 End: 03-07-2023 ambulatory [facility] Start: 01-09-2023 End: 01-09-2023 ambulatory [facility] Start: 11-25-2022 End: 11-28-2022 ambulatory [facility] Start: 10-28-2022 End: 10-28-2022 [facility]: 10-07-2022 End: 10-09-2022 Evaluation and management of inpatient YAYO ROBBIE . Facility:[facility] Start: 09-23-2022 End: 09-23-2022 ambulatory BLOSSOM ROBBIE II Facility:[facility] Start: 09-22-2022 End: 09-23-2022 ambulatory DIVYA ACOSTA Facility:[facility] Start: 09-05-2022 End: 09-06-2022 ambulatory Hector QUILES Facility:CD:[id number] Start: 09-05-2022 End: 09-08-2022 Evaluation and management of inpatient YAYO ROBBIE . Facility:[facility] Start: 08-20-2022 End: 08-20-2022 ambulatory RAQUEL MIN . Facility:[facility] Start: 02-21-[address] DOCTOR QUICK Facility :[facility] Procedures Date Procedure Procedure Detail Performing Clinician Start: 10-07-2022 Insertion of Endotra cheal Airway into Trachea, Via Natural or Artificial Opening DR DOCTOR QUICK Payers Date Payer Category Payer Unknown [id number] 2.16.8 [id number] 1970 Unknown [id number] 2.16.8 [id number] 1969 Unknown [id number] 2.16.84 [id number] 1969 Unknown [id number] 2.16.84 [id number] 1969 Unknown [id number] 2.16.84 [id number] 1969 Unknown [id number] 2.16.84 [id number] 1969 Unknown [id number] 2.16.84 [id number] 1969 Unknown [id number] 2.16.84 [id number] 1959 Self-pay [id number] 1960 Unknown [id number] Progress note 04-18-2023 Note Date & Type Note Facility 04-18-2023 Note [place] Electrophysiology Consult Note Reason for visit: NSVT 04/18/23 Patient here for follow up stress test. She was not able to tolerate Farxiga due to weight loss and decreased appetite, so PCP switched her to hydrochlorothiazide. She has been doing much better on this. Denies bleeding on Eliquis. Stress test was + for EKG part and fixed defect on perfusion study. Ct to have palpitations. Prior HPI: Shahida Mirza is a 52 y.o. year old with past medical history of Atrial flutter HFpEF, type II NSTEMI, htn, copd who following discharge from the hospitalization she was seen by our nurse practitioner Laila and who had ordered a 30-day event monitor. Subsequently Cholo OVALLES had followed up with her and event monitor had revealed the presence of multiple episodes of sinus pause during daytime. She stats she has dizziness that she describes as near syncope. Her event monitor reveaed NSVT and RUG CLIPPER had ordered a stress test which was denied by insurance. Further do not appears that the did not receive monitor results to justify rationale of test. 30 day event monitors a run of VTACH and multple 3 sec sinus pauses, all of which she was asymptomatic for She is on metoprolol tartrate 100mg BID currently She denies chest pain but has SOB and exertional dyspnea. ECG 11/25/22 SR with normal intervals Bronson bailey 10/2022 Shahida Mizra is a 52 y.o. year old female patient being who was seen in consultation at the [facility] for NSTEMI, acute on chronic diastolic heart failure, new onset atrial flutter. Her NSTEMI was thought to be type II secondary to underlying sepsis related to pneumonia requiring intubation, and was recommended outpatient follow-up for evaluation. Notes indicate prior heart catheterization in the recent past, however records were not able to be obtained. She was commended discharge on Eliquis for new onset atrial flutter as well as Lasix 20 mg for acute diastolic heart failure. PMH: Past Medical History: Diagnosis Date Abnormal ECG Arrhythmia CHF (congestive heart failure) ([facility]) COPD (chronic obstructive pulmonary disease) ([facility]) Hypertension NSVT (nonsustained ventricular tachycardia) ([facility]) PSH: Past Surgical History: Procedure Laterality Date APPENDECTOMY SH: Social Determinants of Health Tobacco Use: Low Risk (03/07/2023) Patient History Smoking Tobacco Use: Never Smokeless Tobacco Use: Never Passive Exposure: Past Alcohol Use: Not on file Financial Resource Strain: Not on file Food Insecurity: Not on file Transportation Needs: Not on file Physical Activity: Not on file Stress: Not on file Social Connections: Not on file Intimate Partner Violence: Not on file Depression: Not on file Housing Stability: Not on file Allergies: No Known Allergies Weight: 49.9kg Visit Vitals BP 105/71 (BP Location: Right arm, Patient Position: Sitting) Pulse 56 Ht 1.524 m (5') Wt 49.9 kg (110 lb) SpO2 99% BMI 21.48 kg/m??? Smoking Status Never BSA 1.45 m??? Meds: Current Outpatient Medications on File Prior to Visit Medication Sig Dispense Refill atorvastatin (Lipitor) 40 mg tablet Take 10 mg by mouth at bedtime. cetirizine (ZyrTEC) 10 mg tablet 1 (one) time each day at the same time. citalopram (CeleXA) 10 mg tablet Take 20 mg by mouth if needed. Eliquis 5 mg tablet Take 1 tablet (5 mg) by mouth in the morning and at bedtime. 60 tablet 11 hydroCHLOROthiazide 12.5 mg tablet Take 12.5 mg by mouth in the morning. losartan (Cozaar) 100 mg tablet Take 1 tablet (100 mg) by mouth in the morning. 90 tablet 3 methIMAzole (Tapazole) 5 mg tablet Take 10 mg by mouth in the morning and at bedtime. metoprolol tartrate (Lopressor) 50 mg tablet Take 1 tablet (50 mg) by mouth in the morning and at bedtime. 60 tablet 11 nitroglycerin (Nitrostat) 0.4 mg SL tablet as directed Sublingual daily as directed for 30 days dapagliflozin (Farxiga) 10 mg Take 1 tablet (10 mg) by mouth in the morning. (Patient not taking: Reported on 04/18/2023) 90 tablet 3 furosemide (Lasix) 20 mg tablet Take 20 mg by mouth if needed. No current facility-administered medications on file prior to visit. ROS: Review of Systems Constitutional: Positive for weight loss (7# since 03/07/2023). Cardiovascular: Positive for chest pain, dyspnea on exertion and palpitations. Neurological: Positive for dizziness (with exertion) and light-headedness. All other systems reviewed and are negative. Physical Exam: Constitutional General Appearance: well-nourished, well-developed, appears stated age Level of Distress: comfortable Psychiatric Mental Status: alert, normal affect Orientation: oriented to time, place, and person Insight: good judgement Eyes Lids and Conjunctivae: non-injected, no xanthelasma ENMT Ears: no lesions on external ear Nose: no lesions on external nose Oropharynx: n (more content not included)... [facility] Progress note 03-07-2023 Note Date & Type Note Facility 03-07-2023 Note [facility] Electrophysiology Consult Note Reason for visit: NSVT HPI: Shahida Mirza is a 52 y.o. year old with past medical history of Atrial flutter HFpEF, type II NSTEMI, htn, copd who following discharge from the hospitalization she was seen by our nurse practitioner Laila and who had ordered a 30-day event monitor. Subsequently Cholo OVALLES had followed up with her and event monitor had revealed the presence of multiple episodes of sinus pause during daytime. She stats she has dizziness that she describes as near syncope. Her event monitor reveaed NSVT and RUG CLIPPER had ordered a stress test which was denied by insurance. Further do not appears that the did not receive monitor results to justify rationale of test. 30 day event monitors a run of VTACH and multple 3 sec sinus pauses, all of which she was asymptomatic for She is on metoprolol tartrate 100mg BID currently She denies chest pain but has SOB and exertional dyspnea. ECG 11/25/22 SR with normal intervals Per harlan 10/2022 Shahida Mirza is a 52 y.o. year old female patient being who was seen in consultation at the [facility] for NSTEMI, acute on chronic diastolic heart failure, new onset atrial flutter. Her NSTEMI was thought to be type II secondary to underlying sepsis related to pneumonia requiring intubation, and was recommended outpatient follow-up for evaluation. Notes indicate prior heart catheterization in the recent past, however records were not able to be obtained. She was commended discharge on Eliquis for new onset atrial flutter as well as Lasix 20 mg for acute diastolic heart failure. PMH: Past Medical History: Diagnosis Date Abnormal ECG Arrhythmia CHF (congestive heart failure) ([facility]) COPD (chronic obstructive pulmonary disease) ([facility]) Hypertension NSVT (nonsustained ventricular tachycardia) ([facility]) PSH: Past Surgical History: Procedure Laterality Date APPENDECTOMY SH: Social Determinants of Health Tobacco Use: Low Risk (03/07/2023) Patient History Smoking Tobacco Use: Never Smokeless Tobacco Use: Never Passive Exposure: Past Alcohol Use: Not on file Financial Resource Strain: Not on file Food Insecurity: Not on file Transportation Needs: Not on file Physical Activity: Not on file Stress: Not on file Social Connections: Not on file Intimate Partner Violence: Not on file Depression: Not on file Housing Stability: Not on file Allergies: No Known Allergies Weight: 53.1kg Visit Vitals BP (!) 191/77 (BP Location: Right arm, Patient Position: Sitting) Pulse 65 Ht 1.524 m (5') Wt 53.1 kg (117 lb) SpO2 99% BMI 22.85 kg/m??? Smoking Status Never BSA 1.5 m??? Meds: Current Outpatient Medications on File Prior to Visit Medication Sig Dispense Refill atorvastatin (Lipitor) 40 mg tablet Take 10 mg by mouth at bedtime. cetirizine (ZyrTEC) 10 mg tablet 1 (one) time each day at the same time. citalopram (CeleXA) 10 mg tablet Take 20 mg by mouth if needed. dapagliflozin (Farxiga) 10 mg Take 1 tablet (10 mg) by mouth in the morning. 90 tablet 3 Eliquis 5 mg tablet Take 1 tablet (5 mg) by mouth in the morning and at bedtime. 60 tablet 11 losartan (Cozaar) 100 mg tablet Take 1 tablet (100 mg) by mouth in the morning. (Patient taking differently: Take 50 mg by mouth in the morning.) 90 tablet 3 methIMAzole (Tapazole) 5 mg tablet Take 10 mg by mouth in the morning. metoprolol tartrate (Lopressor) 50 mg tablet Take 1 tablet (50 mg) by mouth in the morning and at bedtime. 60 tablet 11 furosemide (Lasix) 20 mg tablet Take 20 mg by mouth if needed. No current facility-administered medications on file prior to visit. ROS: Cardio Basic Cardiovascular Symptoms: no lightheadedness, no leg edema, no syncope, no orthopnea, no PND, no claudication, Constitutional Constitutional: no fever, no night sweats, no significant weight gain, no significant weight loss, no exercise intolerance Eyes Eyes: no dry eyes, no irritation, no vision change ENMT Ears: no difficulty hearing, no ear pain Nose: no frequent nosebleeds, Mouth/Throat: no sore throat, no bleeding gums, no snoring, no dry mouth, no mouth ulcers, no oral abnormalities, no teeth problems Respiratory Respiratory: no cough, no wheezing, no coughing up blood, no sleep apnea Musculoskeletal Musculoskeletal: no muscle aches, no muscle weakness, joint pain+, no back pain, no swelling in the extremities Integumentary Skin no rash, no ulcer, no varicosities, no discoloration, no pruritus Neurologic Neurologic: no loss of consciousness, no weakness, no numbness, no seizures, no dizziness, no headaches Psychiatric Psych: no depression, feeling safe in relationship, no alcohol abuse, Hematologic/Lymphatic Hematologic/Lymphatic no swollen glands, no bruising Physical Exam: Constitutional General Appearance: well-nourished, well-develope (more content not included)... [facility] Progress note 01-09-2023 Note Date & Type Note Facility 01-09-2023 Note [facility] Electrophysiology Consult Note Reason for visit: atrial flutter, 30 day event monitor HPI: Shahida Mirza is a 52 y.o. year old with past medical history of Atrial flutter HFpEF, type II NSTEMI, htn, copd We previously ordered a stress test which was denied by insurance. Further do not appears that the did not receive monitor results to justify rationale of test. I spoke with patient that we will attach and send appeal and I also screenshot of the rhythm of concern that led to stress test. She is here for follow up for 30 day event monitor d/t concerns for atrial flutter. She had recent a hospital admission with sepsis and had atrial flutter. 30 day event monitors a run of VTACH and multple 3 sec sinus pauses, all of which she was asymptomatic for She is on metoprolol tartrate 100mg BID currently She denies chest pain, sob, GAONA, le edema, orthopnea ECG 11/25/22 SR with normal intervals Per harlan 10/2022 Shahida Mirza is a 52 y.o. year old female patient being who was seen in consultation at the [facility] for NSTEMI, acute on chronic diastolic heart failure, new onset atrial flutter. Her NSTEMI was thought to be type II secondary to underlying sepsis related to pneumonia requiring intubation, and was recommended outpatient follow-up for evaluation. Notes indicate prior heart catheterization in the recent past, however records were not able to be obtained. She was commended discharge on Eliquis for new onset atrial flutter as well as Lasix 20 mg for acute diastolic heart failure. PMH: No past medical history on file. PSH: No past surgical history on file. SH: Social Determinants of Health Tobacco Use: Low Risk (10/28/2022) Patient History Smoking Tobacco Use: Never Smokeless Tobacco Use: Never Passive Exposure: Not on file Alcohol Use: Not on file Financial Resource Strain: Not on file Food Insecurity: Not on file Transportation Needs: Not on file Physical Activity: Not on file Stress: Not on file Social Connections: Not on file Intimate Partner Violence: Not on file Depression: Not on file Housing Stability: Not on file Allergies: No Known Allergies Weight: No weight available Visit Vitals Ht 1.524 m (5') BMI 24.02 kg/m??? Smoking Status Never BSA 1.54 m??? Meds: Current Outpatient Medications on File Prior to Visit Medication Sig Dispense Refill atorvastatin (Lipitor) 40 mg tablet Take 40 mg by mouth at bedtime. citalopram (CeleXA) 10 mg tablet Take 10 mg by mouth in the morning. dapagliflozin (Farxiga) 10 mg Take 1 tablet (10 mg) by mouth in the morning. 90 tablet 3 Eliquis 5 mg tablet Take 1 tablet (5 mg) by mouth in the morning and at bedtime. 60 tablet 11 furosemide (Lasix) 20 mg tablet Take 20 mg by mouth in the morning. losartan (Cozaar) 100 mg tablet Take 1 tablet (100 mg) by mouth in the morning. 90 tablet 3 methIMAzole (Tapazole) 5 mg tablet Take 5 mg by mouth in the morning. metoprolol tartrate (Lopressor) 50 mg tablet Take 1 tablet (50 mg) by mouth in the morning and at bedtime. 60 tablet 11 potassium chloride (Klor-Con) 20 mEq packet Take 20 mEq by mouth in the morning. No current facility-administered medications on file prior to visit. ROS: Cardio Basic Cardiovascular Symptoms: no lightheadedness, no leg edema, no syncope, no orthopnea, no PND, no claudication, Constitutional Constitutional: no fever, no night sweats, no significant weight gain, no significant weight loss, no exercise intolerance Eyes Eyes: no dry eyes, no irritation, no vision change ENMT Ears: no difficulty hearing, no ear pain Nose: no frequent nosebleeds, Mouth/Throat: no sore throat, no bleeding gums, no snoring, no dry mouth, no mouth ulcers, no oral abnormalities, no teeth problems Respiratory Respiratory: no cough, no wheezing, no coughing up blood, no sleep apnea Musculoskeletal Musculoskeletal: no muscle aches, no muscle weakness, joint pain+, no back pain, no swelling in the extremities Integumentary Skin no rash, no ulcer, no varicosities, no discoloration, no pruritus Neurologic Neurologic: no loss of consciousness, no weakness, no numbness, no seizures, no dizziness, no headaches Psychiatric Psych: no depression, feeling safe in relationship, no alcohol abuse, Hematologic/Lymphatic Hematologic/Lymphatic no swollen glands, no bruising Physical Exam: Constitutional General Appearance: well-nourished, well-developed, appears stated age Level of Distress: comfortable Psychiatric Mental Status: alert, normal affect Orientation: oriented to time, place, and person Insight: good judgement Eyes Lids and Conjunctivae: non-injected, no xanthelasma ENMT Ears: no lesions on external ear Nose: no lesions on external nose Oropharynx: no cyanosis, no pallor Neck Neck: supple, trachea midline Carotid Arteries: bilateral normal upstroke, (more content not included)... [facility] Progress note 01-09-2023 Note Date & Type Note Facility 01-09-2023 Note Patient here for 1 m o follow up. Stress test that was ordered for NSVT was denied by her insurance. Says her BP was running low so PCP cut losartan down to 50mg daily. Lightheadedness is much better. C/o chest tightness or squeezing intermittently. Still gets very SOB with minimal exertion. Review of Systems Cardiovascular: Positive for chest pain, dyspnea on exertion and palpitations. Neurological: Positive for dizziness (with exertion) and light-headedness. All other systems reviewed and are negative. [facility] Progress note 11-25-2022 Note Date & Type Note Facility 11-25-2022 Note Patient here for [facility] low up event monitor. She denies chest pain, palpitations, and bleeding on Eliquis. Had BMP last week. Review of Systems Eyes: Positive for blurred vision. Cardiovascular: Positive for dyspnea on exertion. Gastrointestinal: Positive for diarrhea. Neurological: Positive for light-headedness. All other systems reviewed and are negative. [facility] Progress note 11-25-2022 Note Date & Type Note Facility 11-25-2022 Note [facility]rophysiology Consult Note Reason for visit: atrial flutter, 30 day event monitor HPI: Shahida Mirza is a 52 y.o. year old with past medical history of Atrial flutter HFpEF, type II NSTEMI, htn, copd She is here for follow up for 30 day event monitor d/t concerns for atrial flutter. She had recent a hospital admission with sepsis and had atrial flutter. 30 day event monitors a run of VTACH and multple 3 sec sinus pauses, all of which she was asymptomatic for She is on metoprolol tartrate 100mg BID currently She denies chest pain, sob, GAONA, le edema, orthopnea ECG 11/25/22 SR with normal intervals Per harlan 10/2022 Shahida Mirza is a 52 y.o. year old female patient being who was seen in consultation at the [facility] for NSTEMI, acute on chronic diastolic heart failure, new onset atrial flutter. Her NSTEMI was thought to be type II secondary to underlying sepsis related to pneumonia requiring intubation, and was recommended outpatient follow-up for evaluation. Notes indicate prior heart catheterization in the recent past, however records were not able to be obtained. She was commended discharge on Eliquis for new onset atrial flutter as well as Lasix 20 mg for acute diastolic heart failure. PMH: No past medical history on file. PSH: No past surgical history on file. SH: Social Determinants of Health Tobacco Use: Low Risk (10/28/2022) Patient History Smoking Tobacco Use: Never Smokeless Tobacco Use: Never Passive Exposure: Not on file Alcohol Use: Not on file Financial Resource Strain: Not on file Food Insecurity: Not on file Transportation Needs: Not on file Physical Activity: Not on file Stress: Not on file Social Connections: Not on file Intimate Partner Violence: Not on file Depression: Not on file Housing Stability: Not on file Allergies: No Known Allergies Weight: 55.8kg Visit Vitals BP 105/60 (BP Location: Left arm, Patient Position: Sitting) Pulse 64 Ht 1.524 m (5') Wt 55.8 kg (123 lb) SpO2 99% BMI 24.02 kg/m??? Smoking Status Never BSA 1.54 m??? Meds: Current Outpatient Medications on File Prior to Visit Medication Sig Dispense Refill atorvastatin (Lipitor) 40 mg tablet Take 40 mg by mouth at bedtime. citalopram (CeleXA) 10 mg tablet Take 10 mg by mouth in the morning. dapagliflozin (Farxiga) 10 mg Take 1 tablet (10 mg) by mouth in the morning. 90 tablet 3 Eliquis 5 mg tablet Take 1 tablet (5 mg) by mouth in the morning and at bedtime. 60 tablet 11 furosemide (Lasix) 20 mg tablet Take 20 mg by mouth in the morning. losartan (Cozaar) 100 mg tablet Take 1 tablet (100 mg) by mouth in the morning. 90 tablet 3 methIMAzole (Tapazole) 5 mg tablet Take 5 mg by mouth in the morning. metoprolol tartrate (Lopressor) 100 mg tablet Take 100 mg by mouth in the morning and at bedtime. potassium chloride (Klor-Con) 20 mEq packet Take 20 mEq by mouth in the morning. [DISCONTINUED] levoFLOXacin (Levaquin) 750 mg tablet Take by mouth. [DISCONTINUED] metroNIDAZOLE (Flagyl) 500 mg tablet Take 500 mg by mouth in the morning, at noon, and at bedtime. [DISCONTINUED] ondansetron (Zofran) 4 mg tablet Take 4 mg by mouth every 8 (eight) hours if needed for nausea or vomiting. No current facility-administered medications on file prior to visit. ROS: Cardio Basic Cardiovascular Symptoms: no lightheadedness, no leg edema, no syncope, no orthopnea, no PND, no claudication, Constitutional Constitutional: no fever, no night sweats, no significant weight gain, no significant weight loss, no exercise intolerance Eyes Eyes: no dry eyes, no irritation, no vision change ENMT Ears: no difficulty hearing, no ear pain Nose: no frequent nosebleeds, Mouth/Throat: no sore throat, no bleeding gums, no snoring, no dry mouth, no mouth ulcers, no oral abnormalities, no teeth problems Respiratory Respiratory: no cough, no wheezing, no coughing up blood, no sleep apnea Musculoskeletal Musculoskeletal: no muscle aches, no muscle weakness, joint pain+, no back pain, no swelling in the extremities Integumentary Skin no rash, no ulcer, no varicosities, no discoloration, no pruritus Neurologic Neurologic: no loss of consciousness, no weakness, no numbness, no seizures, no dizziness, no headaches Psychiatric Psych: no depression, feeling safe in relationship, no alcohol abuse, Hematologic/Lymphatic Hematologic/Lymphatic no swollen glands, no bruising Physical Exam: Constitutional General Appearance: well-nourished, well-developed, appears stated age Level of Distress: comfortable Psychiatric Mental Status: alert, normal affect Orientation: oriented to time, place, and person Insight: good judgement Eyes Lids and Conjunctivae: non-injected, no xanthelasma ENMT Ears: no lesions on external ear Nose: no lesions on external nose Oropharynx: no cyanosis, no pallo (more content not included)... [facility] Progress note 10-28-2022 Note Date & Type Note Facility 10-28-2022 Note Review of Systems Constitutional: Positive for night sweats and weight loss. Eyes: Positive for blurred vision. Respiratory: Positive for shortness of breath. Gastrointestinal: Positive for diarrhea. Neurological: Positive for dizziness. [facility] Progress note 10-28-2022 Note Date & Type Note Facility 10-28-2022 Note Cardiology Clinic No te Subjective Shahida Mirza is a 52 y.o. year old female patient being who was seen in consultation at the [facility] for NSTEMI, acute on chronic diastolic heart failure, new onset atrial flutter. Her NSTEMI was thought to be type II secondary to underlying sepsis related to pneumonia requiring intubation, and was recommended outpatient follow-up for evaluation. Notes indicate prior heart catheterization in the recent past, however records were not able to be obtained. She was commended discharge on Eliquis for new onset atrial flutter as well as Lasix 20 mg for acute diastolic heart failure. Patient Active Problem List Diagnosis Hypomagnesemia No family history on file. Update; 10/28/2022 She was recently in the hospital again for diverticulitis Has had low BP at home systolic in the 90s Feels lightheadedness and dizzy Review of Systems Cardiovascular: Positive for dyspnea on exertion. Negative for chest pain, claudication, irregular heartbeat, leg swelling, near-syncope, orthopnea, palpitations, paroxysmal nocturnal dyspnea and syncope. Objective Visit Vitals BP 107/63 (BP Location: Left arm, Patient Position: Sitting) Pulse 64 SpO2 99% Smoking Status Never Physical Exam General: Awake, alert, good spirits. NAD Pulm: Breath sounds clear to ascultation bilaterally with no wheeze, crackles or rhonchi Cards: Regular rate and rhythm, S1, S2. No S3 or S4 gallop. Murmur: none Abd: Soft, Nontender, physiologic bowel sounds are present Extr: Lower extremity edema: None. Skin: warm, dry, well perfused Neuro: A&Ox3, No gross deficits Allergies No Known Allergies Medications Current Outpatient Medications: atorvastatin (Lipitor) 40 mg tablet, , Disp: , Rfl: citalopram (CeleXA) 10 mg tablet, Take 10 mg by mouth in the morning., Disp: , Rfl: Eliquis 5 mg tablet, , Disp: , Rfl: furosemide (Lasix) 20 mg tablet, Take 20 mg by mouth in the morning., Disp: , Rfl: levoFLOXacin (Levaquin) 750 mg tablet, Take by mouth., Disp: , Rfl: methIMAzole (Tapazole) 5 mg tablet, Take 5 mg by mouth in the morning., Disp: , Rfl: metoprolol tartrate (Lopressor) 100 mg tablet, , Disp: , Rfl: metroNIDAZOLE (Flagyl) 500 mg tablet, Take 500 mg by mouth in the morning, at noon, and at bedtime., Disp: , Rfl: ondansetron (Zofran) 4 mg tablet, Take 4 mg by mouth every 8 (eight) hours if needed for nausea or vomiting., Disp: , Rfl: potassium chloride (Klor-Con) 20 mEq packet, Take 20 mEq by mouth in the morning., Disp: , Rfl: dapagliflozin (Farxiga) 10 mg, Take 1 tablet (10 mg) by mouth in the morning., Disp: 90 tablet, Rfl: 3 losartan (Cozaar) 100 mg tablet, Take 1 tablet (100 mg) by mouth in the morning., Disp: 90 tablet, Rfl: 3 Recent Labs 10/09/2022 WBC 6.8, hemoglobin 9.1, hematocrit 28.5, platelets 219 Sodium 142, potassium 3.6, chloride 109, BUN 24, serum creatinine 0.88, estimated GFR greater than 60% NT proBNP 30,636 Imaging and other tests Echocardiogram: 10/07/2022 Technically difficult study with poor sound transmission Normal left ventricular systolic function. LVEF appears to be 60 to 65%. No significant valvular dysfunction Unable to assess right-sided pressures due to lack of measurable tricuspid regurgitation Assessment Diagnoses and all orders for this visit: Essential hypertension - losartan (Cozaar) 100 mg tablet; Take 1 tablet (100 mg) by mouth in the morning. Acute on chronic diastolic (congestive) heart failure (CMS/HCC) - dapagliflozin (Farxiga) 10 mg; Take 1 tablet (10 mg) by mouth in the morning. - Basic metabolic panel; Future Atrial flutter, unspecified type (CMS/HCC) Plan 1. Acute on chronic diastolic heart failure -Echocardiogram showed preserved ejection fraction of 60 to 65%. She appears euvolemic on exam today, we discussed heart failure management extensively including daily weights, sodium and fluid restrictions. We will discontinue her hydrochlorothiazide and start her on Farxiga 10 mg daily. We will obtain follow-up labs in 1 week if labs look okay, can consider starting spironolactone. 2. Hypertension -She is well controlled on metoprolol titrate 100 mg twice daily, and losartan 100 mg daily. We will discontinue her hydrochlorothiazide and monitor. Plan to start spironolactone to optimize her heart failure management. 3. Atrial flutter -She is in sinus rhythm here today, continue Eliquis and beta-ray for rate control. She is still wearing her event monitor following hospitalization, she will follow-up with electrophysiology for results and further management. Follow up in about 4 weeks (around 11/25/2022). Angie Bailey APRN-BERKLEY [facility] Clinical Note 10-09-2022 Note Date & Type Note Facility 10-09-2022 Note PROCEDURE: XR CHEST 1 V DATE: 10/08/2022 10:20 PM CDT COMPARISONS: 10/08/2022 CLINICAL INDICATION: 52 years Female SHORTNESS OF BREATH FINDINGS: The cardiomediastinal silhouette and pulmonary vasculature are within normal limits. The lungs are clear. There is no evidence of pleural effusion or pneumothorax. IMPRESSION: Chest radiograph is within normal limits. Electronically authenticated by: ARTUR ZARATE Date: 2022-10-09 06:48 [facility] Consultation note 09-05-2022 Note Date & Type Note Facility 09-05-2022 Note CONSULTATION CONSULTATION DATE: 09/05/2022 REASON FOR CONSULTATION: Abdominal pain, abnormal abdominal/pelvic CT scan. HISTORY OF PRESENT ILLNESS: Patient is a 52-year-old female with history of hyperthyroidism, hypertension, asthma, who had recently undergone a laparoscopic appendectomy 16 days ago for what was felt to be acute appendicitis. She was discharged that same day. Reports that she was not on any additional antibiotic therapy. She was doing well with some right sided soreness intermittent, until two days ago, when she developed worsening pain, primarily on the right side. This was associated with some nausea and vomiting. She denies any fever, chills, night sweat. She also has not had a bowel movement since three days ago. By report, prior to that, her bowel movements were normal. She reports that she was taking ibuprofen for soreness, after initially taking some hydrocodone. Workup in the emergency room revealed evidence of significant dehydration as well as hypokalemia, elevated BUN and creatinine, as well as elevated white blood cell count. CT scan of the abdomen and pelvis revealed inflammatory changes in the right lower quadrant with a small, less than 2 cm area of fluid, with a few air bubbles, that was read as possible late developing abscess. Of note is that she has also had dilatation of her common bile duct which was noted on her CT scan from the August 20. It was more pronounced on the most recent CT yesterday. She also was noted to have an elevation of her alkaline phosphotase. Otherwise, transaminases, bilirubin, amylase and lipase were all noted. Patient denies history of any previous abdominal surgery, has no history of pancreatitis or jaundice. She has no history of diverticulitis in the past. Denies having a previous colonoscopy or EGD.. She has no family history of GI malignancy, inflammatory bowel disease or liver disease. ALLERGIES: Patient has no known drug allergies. MEDICATIONS: Home medications include an albuterol inhaler, citalopram, methimazole, metoprolol and mirtazapine. PAST SURGICAL HISTORY: As noted in the HPI. SOCIAL HISTORY: Patient is single. She denies tobacco use. Does report drinking beer weekly. No hard liquor. No illicit drug use. FAMILY HISTORY: Positive for breast cancer in her maternal grandmother, ovarian cancer in maternal grandmother; stroke, heart and diabetes in her father. REVIEW OF SYSTEMS: Ten system review of systems negative for recent weight loss or weight gain. She denies increased fatigue or light-headedness. Has had no earache or tinnitus. No sinus congestion. No sore throat or hoarseness. No chest pain, palpitations or syncope. No chronic cough, shortness of breath or hemoptysis. She has had the abdominal pain, as well as some intermittent nausea, vomiting. No diarrhea. No melena, hematochezia or bright red blood per rectum. No hematemesis. No dysuria, frequency, urgency or hematuria. No headaches, seizures or tremors. No easy bruising or bleeding. No heat or cold intolerance. No polydipsia, polyphagia or polyuria. PHYSICAL EXAM: VITAL SIGNS: Patient is afebrile. Vital signs are stable. HEENT: Normocephalic, atraumatic. Sclerae anicteric. Conjunctiva not injected. Oral mucosa is slightly dry. NECK: Supple. There is no adenopathy, thyromegaly or JVD. LUNGS: Clear bilaterally. CARDIAC EXAM: Increased rate without appreciable murmurs, rubs or gallops. ABDOMEN: Reveals normal bowel sounds. It is mildly distended. It is soft. There is some mild diffuse tenderness, but no peritoneal signs. No masses. No hepatosplenomegaly. No hernias noted. Incisions are healing well without erythema or drainage. EXTREMITIES: No clubbing, cyanosis or edema. NEURO EXAM: Non-focal. Non-lateralizing. Patient is awake, alert, oriented with appropriate affect. ASSESSMENT: A 52-year-old female with abdominal pain, leukocytosis, dehydration as well as renal insufficiency 16 days after laparoscopic appendectomy. Also, with persistent inflammatory changes in the right lower quadrant with possible small developing abscess and increasing dilatation of the common bile duct. Overall, given patient's previous CT, this may be more consistent with a right sided diverticulitis that was partially treated. Appendix revealed serositis but not evidence of acute appendicitis. RECOMMENDATIONS: I would recommend IV antibiotics, bowel rest. Patient may have sips of water and evaluation of the bile duct since it is increasing in size. Will proceed with MRCP at this time. Also recommend antiemetics and pain control as needed. Overall, she has no evidence of surgical abdomen or surgical abnormality on CT scan. I would be happy to follow with you during her hospital course. CC: Patient's family physician [facility] Summary Purpose Family History No Family History Records FoundNo Family History Records FoundNo Family History Records Found Advance Directives No Advanced Directives Records FoundNo Advanced Directives Records FoundNo Advanced Directives Records Found Additional Source Comments INFORMATION SOURCE (unrecogn ized section and content) DATE CREATED AUTHOR [facility]/10/2022 [facility] DATE CREATED AUTHOR AUTHOR'S ORGANIZ ATION 10/21/2022 [facility] DATE CREATED AUTHOR AUTHOR'S ORGANIZ ATION 04/23/2023 [facility] FOR RECORDS PERTAINING TO PATIENTS WHO ARE OR HAVE BEEN ENROLLED IN A CHEMICAL DEPENDENCY/SUBSTANCEABUSE PROGRAM, SOME INFORMATION MAY BE OMITTED. This clinical summary was aggregated from multiple sources. Caution should be exercised in using it in the provision of clinical care. This summary normalizes information from multiple sources, and as a consequence, information in this document may materially change the coding, format and clinical context of patient data. In addition, data may be omitted in some cases. CLINICAL DECISIONS SHOULD BE BASED ON THE PRIMARY CLINICAL RECORDS. [facility]. provides no warranty or guarantee of the accuracy or completeness of information in this document.
[2023-05-24] MEDS: ONDANSETRON PF 4 MG/2 ML VIAL IV (14:45)
[2023-05-24] MEDS: 0.9 % SODIUM CHLORIDE 1,000 ML 100 ML IV (14:45)
[2023-05-24 14:47] LABS: Basophils Absolute Auto 0.1 10^3/uL (0.0-0.1); Basophils Percent Auto 0.8 % (0.2-2.0); Eosinophils Percent Auto 0.5 % (0.9-7.0); Hematocrit 45.6 % (36.0-48.0); Hemoglobin 14.7 g/dL (12.0-16.0); Immature Granulocytes Abs Auto 0.02 10^3/uL (0.00-0.03); Immature Granulocytes Pct Auto 0.3 % (0.0-0.5); Lymphocytes Absolute Auto 2.9 10^3/uL (1.2-3.8); Lymphocytes Percent Auto 39.5 % (20.5-60.0); Mean Corpuscular HGB Conc 32.2 g/dL (29.9-35.2); Mean Corpuscular Hemoglobin 26.1 pg (26.7-34.0); Mean Platelet Volume 10.9 fL (9.5-13.5); Monocytes Absolute Auto 0.5 10^3/uL (0.3-0.8); Monocytes Percent Auto 6.5 % (1.7-12.0); Neutrophils Absolute Auto 3.9 10^3/uL (1.4-6.5); Neutrophils Percent Auto 52.4 % (43.0-75.0); Platelet Count 342 10^3/uL (150-450); Red Blood Count 5.63 10^6/uL (4.20-5.40); Red Cell Distribution Width 15.1 % (11.0-15.0); White Blood Count 7.4 10^3/uL (4.0-11.0)
[2023-05-24 14:56] LABS: Bilirubin Urine NEGATIVE (NEGATIVE); Blood Urine NEGATIVE (NEGATIVE); Clarity Urine CLEAR (CLEAR); Color Urine LT. YELLOW (YELLOW); Glucose Urine UA NEGATIVE (NEGATIVE); Ketones Urine NEGATIVE (NEGATIVE); Leukocyte Esterase Urine NEGATIVE (NEGATIVE); Nitrite Urine NEGATIVE (NEGATIVE); Protein Urine NEGATIVE (NEG/TRACE); Specific Gravity Urine <=1.005 (1.005-1.025); Urobilinogen Urine 0.2 EU/dL (0.2-1.0)
[2023-05-24 14:59] LABS: D Dimer <0.19 mg/L FEU (<=0.59); INR 1.03; Prothrombin Time 10.9 sec (9.0-11.6)
[2023-05-24 15:00] LABS: Urine Microscopic Indicated NO
[2023-05-24 15:01] LABS: Lactate/Lactic Acid 4.1 mmol/L (0.4-2.0)
--- NOTE | 2023-05-24 15:03 | PC.NURSE ---
Lactic results received and KAVITA Batista notified.
[2023-05-24 15:05] LABS: Thyroid Stimulating Hormone <0.007 uIU/mL (0.358-3.740)
[2023-05-24 15:06] LABS: Alanine Aminotransferase 56 U/L (14-59); Albumin Globulin Ratio 1.1; Albumin Level 4.6 g/dL (3.4-5.0); Alkaline Phosphatase 249 U/L (46-116); Anion Gap 15.9; Aspartate Amino Transferase 26 U/L (15-37); BUN Creatinine Ratio 19.5; Bilirubin Total 0.9 mg/dL (0.2-1.0); Calcium 10.2 mg/dL (8.5-10.1); Carbon Dioxide 25.8 mmol/L (21.0-32.0); Chloride 103 mmol/L (98-107); Estimated GFR (African America 51 (>=60); Estimated GFR (Non-African Ame 42 (>=60); Globulin 4.3 g/dL; Glucose 111 mg/dL (74-106); Sodium 142 mmol/L (136-145); Total Protein 8.9 g/dL (6.4-8.2); Troponin I High Sensitivity 14.8 pg/mL (4.0-51.3)
[2023-05-24 15:09] LABS: Potassium 2.7 mmol/L (3.5-5.1)
[2023-05-24] MEDS: POTASSIUM BICARBONATE/CIT 25 MEQ TABLET EFF 50 MEQ PO (15:38)
[2023-05-24 15:39] LABS: PCO2 VBG 44.8 mmHg (40.0-52.0)
[2023-05-24] MEDS: POTASSIUM CHLORIDE 40 MEQ IN 0.9%NACL 1,000 ML 250 MEQ IV (15:39)
[2023-05-24 15:53] LABS: Influenza Virus A Antigen Negative; Influenza Virus B Antigen Negative; Internal Control Within Normal Limits
[2023-05-24 15:53] LABS: SARS-CoV-2 Ag NEGATIVE (NEGATIVE)
--- NOTE | 2023-05-24 17:01 | PC.NURSE ---
assisted to bedside commode and back to bed at this time .
[2023-05-24 17:03] LABS: Magnesium 2.1 mg/dL (1.8-2.4)
[2023-05-24 18:29] LABS: Lactate/Lactic Acid 1.4 mmol/L (0.4-2.0)
== END 2023-05-24 19:08 | disposition short-term general hospital (02) ==
PROVIDERS: Physician Assistant; Emergency Provider Emergency Medicine Emergency Medical Services; PCP Family Medicine
DX: I48.91 Unspecified atrial fibrillation (principal); E87.6 Hypokalemia; R42 Dizziness and giddiness; R06.02 Shortness of breath; I49.9 Cardiac arrhythmia, unspecified; Z79.01 Long term (current) use of anticoagulants; Z79.899 Other long term (current) drug therapy; E78.5 Hyperlipidemia, unspecified; I11.0 Hypertensive heart disease with heart failure; I50.9 Heart failure, unspecified; E05.90 Thyrotoxicosis, unspecified without thyrotoxic crisis or storm; Z90.49 Acquired absence of other specified parts of digestive tract; Z20.822 Contact with and (suspected) exposure to COVID-19
CPT/HCPCS: 36415; 71045; 80053; 81003; 82800; 83605; 83735; 83880; 84443; 84484; 85025; 85378; 85610; 87040; 87635; 87804; 87811; 93005; 96374; 96375; 99285; J2405

== ENCOUNTER 2023-06-16 13:09 | Outpatient (OUT) | payer OTHER, SELFPAY ==
--- OUTSIDE RECORDS SUMMARY | 2023-06-16 13:18 | XMS_ITS | CCD ---
Author Name Unknown Address [address] [place] [address] Organization [facility] Care Team Providers Care Lag Screwer Name Role Phone Hector QUILES Attending Unavailable NILL, Hector Hair Attending Unavailable Musa Caro Referring Unavailable MISC, DR TOMPKINS Primary Care Unavailable MISC, DR TOMPKINS Attending Unavailable MISC, DR TOMPKINS Admitting Unavailable ROBBIE ., YAYO Admitting Unavailable ZIEBLORI, DR THADDEUS Hair Consulting Unavailable [facility] Primary Care Unavailable ROBBIE ., YAYO Attending Unavailable DAMIÁN ., DR WILCOX Consulting Unavailable SWEENEY ., MR CAPUTO Consulting Unavailable NILL ., DR SAHA Consulting Unavailable FELICIANO QUIROZ Consulting Unavailable READ, HIMA Consulting Unavailable ROBBIE ., YAYO Consulting Unavailable RAJ EDGAR Consulting Unavailable SHAMMO, DIVYA Primary Care Unavailable SHAMMO DIVYA Attending Unavailable SHAMMO, DIVYA Admitting Unavailable ZIEBER, DR THADDEUS Hair Consulting Unavailable SHAMMO, DIVYA Consulting Unavailable ROBBIE ., YAYO Admitting Unavailable SHAMMO, DIVYA Primary Care Unavailable DIANA URIOSTEGUI Consulting Unavailable ROBBIE ., YAYO Attending Unavailable SAMSA ., LEE ANN Consulting Unavailable AHDOOT, JUAN LUIS Consulting Unavailable COLEMAN, JUAN PABLO Consulting Unavailable TROTTI, GIROLAMO Consulting Unavailable WALESKA ., KERRI Consulting Unavailable SHAIKH Michaelle SKELOTN Consulting Unavailable EMILE DOWNS Consulting Unavailable LISSA ARTEAGA Consulting Unavailable HUMAIRA READ Consulting Unavailable SISTER, TONNY Consulting Unavailable ROBBIE ., YAYO Consulting Unavailable NEWATIA, GABRIELLA Consulting Unavailable MYCHAL STOREY Consulting Unavailable LOUISE POLLOCK Consulting Unavailable ARTUR ZARATE Consulting Unavailable SYLWIA DE Consulting Unavailable RAQUEL SHETH Admitting Unavailable MISC, DR TOMPKINS Primary Care Unavailable ROBBIE SPENCER, BLOSSOM Consulting Unavailable RAQUEL SHETH Attending Unavailable RAQUEL SHETH Consulting Unavailable DIAB ., MIKE Consulting Unavailable NEITLICH, KAYDEN Consulting Unavailable ROBBIE II, BLOSSOM Consulting Unavailable SHAMBRICE, DIVYA Primary Care Unavailable RAQUEL SHETH Attending Unavailable RAQUEL SHETH Admitting Unavailable RAQUEL SHETH Consulting Unavailable KOCARINE, KENTON Consulting Unavailable MERZA, NOORALDIN Referring Unavailable AUGUSTIN BAILEY Attending Unavailable CHOLO AMADOR Attending Unavailable FABIAN LIRA Attending Unavailable FABIAN LIRA Attending Unavailable ANNIEI, CHOLO Attending Unavailable CHOLO AMADOR Attending Unavailable ELTAMARGARETY, EHAB Referring Unavailable DESTINY FREDERICK Admitting Unavailab le MERZA, NOORALDIN Attending Unavailable Allergies Allergy Classification Reported Allergen(s) Allergy Type Date of Onset Reaction(s) Facility (1 source) dapagliflozin; Translations: [DAPAGLIFLOZIN] Drug Allergy 06-13-2023 [facility] Repository Problems Active Problems Problem Classification Problem Date [...] AND VOMIT] Onset: 10-12-2022 Episodic Cardiac dysrhythmias (3 sources) Unspecified atrial fibrillation; Translations: [UNSPECIFIED ATRIAL FIBRILLATION] [...] 09-15-2022 Episodic Other aftercare (1 source) Other intermediate (current) drug therapy; Translations: [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 THERAPY] Onset: 10-12-2022 Episodic Other [...] EXPOS COVID-19] Onset: 08-24-2022 Unclassified (1 source) Ventricular tachycardia, unspecified; Translations: [Ventricular tachycardia, unspecified] Onset: 05-25-2023 Unclassified (1 source) Other ventricular tachycardia; Translations: [Other ventricular tachycardia] Onset: 11-25-2022 Past or Other Problems Problem Classification Problem Date Documented Date Episodic/Chronic Other screening for suspected conditions (not mental disorders or infectious disease) (6 sources) Encounter for screening for malignant neoplasm of colon; Translations: [Abnormal electrocardiogram [ECG] [EKG]] Onset: 09-23-2022 Episodic Unclassified (1 source) Ventricular tachycardia, unspecified; Translations: [Ventricular tachycardia, unspecified] Onset: 06-13-2023 Unclassified (1 source) Other ventricular tachycardia; Translations: [Other ventricular tachycardia] Onset: 11-25-2022 Results Test Name Value Interpretation Reference Range Facility Office Visiton 06-13-2023 Follow-up visit [id number] Shahida Mirza 1970 F Date Provider Department Center 06/13/2023 Raina-CHOLO AMADOR Family History Problem Relation Age of Onset Other Mother Coronary artery disease Father Other Father Family Status - Relation Status Age at Mother Father Level of Service:54799 IN OFFICE/OUTPATIENT ESTABLISHED MOD MDM 30 MIN Normal [facility] 30on 05-26-2023 30 The patient is Moderately Stable - Low risk of patient condition declining or worsening The patient's goals for the shift include comfort The clinical goals for the shift include vss Over the shift, the patient did not make progress toward the following goals. Barriers to progression include . Recommendations to address these barriers include . Normal [facility] ANTI-XA (HEPARIN LEVEL)on HEPARIN UNFRACTIONATED (U/ML) IN PPP BY CHROMOGENIC METHOD 0.56 IU/mL Normal 0.3-0.7 [facility] Comment on above: Order Comment: Check anti-Xa level every 6 hours while on heparin infusion, or per protocol. Result Comment: Celeste roxaban and Apixaban will interfere with the anti Xa assay used to monitor UFH and LMWH. Performed By: #### L [id number] ####[facility] ([facility])[address] [place] [address] HEPARIN UNFRACTIONATED (U/ML) IN PPP BY CHROMOGENIC METHOD 0.71 IU/mL High 0.3-0.7 [facility] Comment on above: Result Comment: Celeste roxaban and Apixaban will interfere with the anti Xa assay used to monitor UFH and LMWH. Performed By: #### L [id number] ####[facility] ([facility])[address] [place] [address] APTTon 05-26-2023 ACTIVATED PARTIAL THROMBOPLASTIN TIME IN PPP BY COAGULATION ASSAY 85.5 Seconds High 25.0-35.0 [facility] Comment on above: Result Comment: Clin ical significance of the APTT is questionable in the presence of heparin. Performed By: #### L [id number] #### [facility] ([facility]) [address] [place] [address] BASIC METABOLIC PANELon 05-15 Anion gap [Moles/Vol] 12 mmol/L Normal 7-20 [facility] Comment on above: Performed By: #### L [id number] ####[facility] ([facility])[address] [place] [address] Calcium [Mass/Vol] 9.8 mg/dL Normal 8.6-10.3 [facility] Comment on above: Performed By: #### L [id number] ####[facility] ([facility])[address] [place] [address] Chloride [Moles/Vol] 108 mmol/L High 98-107 [facility] Comment on above: Performed By: #### L [id number] ####[facility] ([facility])[address] [place] [address] CO2 [Moles/Vol] 23 mmol/L Normal 21-31 [facility] Comment on above: Performed By: #### L [id number] ####[facility] ([facility])[address] [place] [address] Creatinine [Mass/Vol] 0.85 mg/dL Normal 0.60-1.20 [facility] Comment on above: Performed By: #### L AB15 ####[facility] ([facility])[address] [place] [address] GLOMERULAR FILTRATION RATE ML/MIN/1.73 SQ M.PREDICTED 81.9 mL/min/1.73m*2 Normal >60.0 [facility] Comment on above: Result Comment: The [facility]???s estimated glomerular filtration rate (eGFR) will no longer include consideration of race in its calculation. The National Kidney Foundation???s eGFR Task Force developed new recommendations for the estimation of the glomerular filtration rate in the [place] They recommend immediate implementation of the new equation refit without the race variable in all laboratories because the calculation does not include race. In addition to not including race in the calculation and reporting, it included diversity in its development, and has acceptable performance characteristics and potential consequences that do not disproportionately affect any one group of individuals. Performed By: #### L [id number] ####[facility] ([facility] [place] [address] Glucose [Mass/Vol] 85 mg/dL Normal 70-100 [facility] Comment on above: Performed By: #### L [id number] ####[facility] ([facility])[address] [place] [address] Potassium [Moles/Vol] 4.1 mmol/L Normal 3.5-5.1 [facility] Comment on above: Performed By: #### L AB15 ####[facility] ([facility])[address] [place] [address] Sodium [Moles/Vol] 139 mmol/L Normal 136-145 [facility] Comment on above: Performed By: #### L AB15 ####[facility] ([facility])[address] [place] [facility] [address] Urea nitrogen [Mass/Vol] 18 mg/dL Normal 7-25 [facility] Comment on above: Performed By: #### L AB15 ####[facility] ([facility])[address] [place] [address] UREA NITROGEN/CREATININE (MASS RATIO) IN SER/PLAS 21.2 Normal [facility] Comment on above: Performed By: #### L [id number] ####[facility] ([facility])[address] [place] [address] CONSULTon 05-26-2023 CONSULT -- Attestation signed by Fabian Lira MD at 05/31/2023 8:56 AM By using the attestations below, the signing clinician agrees that I have read and verify that the documentation has been personally reviewed by me and ensure that the documentation accurately reflects the encounter. GC: I personally saw this patient on the day of the encounter, performed the morgan portion(s) of the service and participated in the management and confirm the resident's documentation. Please note there may be an additional personal documentation from me. [place] Electrophysiology Consult Note Reason for Consult: Sinus pauses, PVCs, atrial fibrillation HPI: Shahida Mirza is a 52 y.o. female with history of coronary artery disease, atrial flutter, HFpEF, was admitted to the hospital with shortness of breath, as a case of acute congestive heart failure decompensation, the patient is known to our EP clinic, she was seen and had a event monitor which showed recurrent episodes of nonsustained ventricular tachycardia, multiple pauses for about 3 seconds, she is also known to have atrial flutter since August on Eliquis at home. The patient states she is constantly dizzy and lightheaded never had episodes of loss of consciousness denies any chest pain but she has some chest discomfort and shortness of breath with exertion. Cardiology ROS: GENERAL: Denies fever, chills, night sweats, weight loss. CARDIOVASCULAR: Mentioned RESPIRATORY: Denies SOB, coughing, wheezing GI: Denies abdominal pain, nausea/vomiting. PSYCH: Denies anxiety. Past Medical History She has a past medical history of Abnormal ECG, Arrhythmia, CHF (congestive heart failure) ([facility]), COPD (chronic obstructive pulmonary disease) ([facility]), Hypertension, and NSVT (nonsustained ventricular tachycardia) ([facility]). Surgical History She has a past surgical history that includes Appendectomy. Social History She reports that she has never smoked. She has been exposed to tobacco smoke. She has never used smokeless tobacco. No history on file for alcohol use and drug use. Family History Family History Problem Relation Name Age of Onset Other (pacemaker) Mother Coronary artery disease Father Other (CABG) Father Allergies Patient has no known allergies. Medications Medications Prior to Admission Medication Sig Dispense Refill Last Dose albuterol 90 mcg/actuation inhaler Inhale 2 puffs every 6 (six) hours if needed for wheezing. atorvastatin (Lipitor) 40 mg tablet Take 10 mg by mouth at bedtime. cetirizine (ZyrTEC) 10 mg tablet 1 (one) time each day at the same time. citalopram (CeleXA) 10 mg tablet Take 20 mg by mouth if needed. dapagliflozin (Farxiga) 10 mg Take 1 tablet (10 mg) by mouth in the morning. (Patient not taking: Reported on 04/18/2023) 90 tablet 3 Eliquis 5 mg tablet Take 1 tablet (5 mg) by mouth in the morning and at bedtime. 60 tablet 11 furosemide (Lasix) 20 mg tablet Take 20 mg by mouth if needed. hydroCHLOROthiazide 12.5 mg tablet Take 12.5 mg by mouth in the morning. losartan (Cozaar) 100 mg tablet Take 1 tablet (100 mg) by mouth in the morning. (Patient taking differently: Take 25 mg by mouth in the morning.) 90 tablet 3 methIMAzole (Tapazole) 5 mg tablet Take 10 mg by mouth in the morning and at bedtime. metoprolol tartrate (Lopressor) 50 mg tablet Take 1 tablet (50 mg) by mouth in the morning and at bedtime. 60 tablet 11 nitroglycerin (Nitrostat) 0.4 mg SL tablet as directed Sublingual daily as directed for 30 days Last Recorded Vitals Patient Vitals for the past 24 hrs: BP Temp Temp src Pulse Resp Weight 05/26/23 0522 -- -- -- -- -- 48.2 kg (106 lb 4.2 oz) 05/26/23 0407 109/53 36.9 ???C (98.4 ???F) -- 60 -- -- 05/26/23 0000 (!) 96/44 36.9 ???C (98.5 ???F) -- 60 -- -- 05/25/23 2120 118/60 36.7 ???C (98 ???F) -- 70 -- -- 05/25/23 1705 (!) 152/95 36.9 ???C (98.4 ???F) Temporal 76 18 -- 05/25/23 1255 155/66 36.9 ???C (98.4 ???F) Temporal 62 16 -- Physical Examination: GENERAL: AOx3, in no acute distress. HEAD: Atraumatic, normocephalic. EYES: MILY, EOMI. NECK: No JVD present. CARDIAC: RRR. No murmur, rubs, or gallops. RESPIRATORY: CTAB, no increased effort of breathing. ABDOMEN: Soft, nontender, nondistended. EXTREMITIES: No lower extremity edema, peripheral pulses are 2+ bilaterally. NEURO: No focal deficits Relevant Lab Results @LABRESULTS@ Encounter Date: 05/24/23 ECG 12 lead Result Value Ventricular Rate 62 Atrial Rate 62 IN Interval 174 QRS DURATION 90 QT Interval 440 QTC CALCULATION(BAZETT) 446 P [place] 36 R-[place] 53 T Wave [place] 69 Impression Normal sinus rhythm Normal ECG No previous ECGs available Confirmed by Fabian Lira ([id number]) on 05/25/2023 8:31:53 PM Lab Results Component Value Date TROPONINI 0. (more content not included)... Normal [facility] DSon 05-26-2023 DS -- Attestation signed by Barbra Little MD at 05/29/2023 6:22 PM And concur with the note above Hospital Medicine Discharge Summary Final Discharge Diagnosis: Atrial fibrillation with RVR (CMS/HCC) Atrial fibrillation with rapid ventricular response - rate now controlled Hyperthyroidism, suspect subclinical Chest pain - resolved Hypokalemia, resolved Sinus pause Elevated lactic acid level, resolved Chronic heart failure with preserved ejection fraction COPD without exacerbation Essential hypertension, controlled Hyperlipidemia CAD Admission Diagnosis: Atrial fibrillation with rapid ventricular response (CMS/HCC) [I48.91] Hospital course: Shahida Mirza is an 52 y.o. female who came from [facility] with multiple complaints. Patient was seen in her primary care's office earlier today. Prior to her evaluation she started to experience shortness of breath she was complaining of lightheadedness and chest pain during her office visit. Chest pain was in the left upper chest/neck area, non-radiating, tightness, 5-6 discomfort and resolved after a few minutes. Was noted to be in atrial fibrillation with rapid ventricular response and sent to the ER for further evaluation. In the ER, she had an elevated high-sensitivity troponin level, low potassium, elevated lactic acid level, low TSH and was noted to have a 3 second pause on telemetry monitoring. Chest x-ray was notable for trace right basilar infiltrate versus atelectasis. The patient reports that she has been experiencing intermittent episodes of dyspnea at rest and with exertion since last August before she was diagnosed with atrial fibrillation. She usually does not experience chest pain. Denies palpitations. Denies fever, chills, cough, abdominal pain, nausea, vomiting or diarrhea. She has a cardiac cath and ablation scheduled for November 06, 2023 with the [facility] cardiology service as they have been managing her atrial fibrillation/flutter, CAD and heart failure with preserved ejection fraction. Cardiac history is also notable for sinus pauses and nonsustained V. tach. 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 Patient's heart rate stabilized after electrolyte abnormalities have resolved, continues to have some pauses but only as long as 3 seconds. She was evaluated by cardiology, no current need for pacemaker placement or heart cath at this time. She was discharged and encouraged to follow-up closely with her sheetmetal trades worker on further adjustment of her medication. Dear Dr. Santino MD, [facility] is advised to follow up with you within 1-2 weeks. Follow-up with: Cardiology and Endocrine Scheduled appointments: Future Appointments Date Time Provider Department Center 06/13/2023 3:40 PM [facility] Your medication list CONTINUE taking these medications Instructions Last Dose Given Next Dose Due albuterol 90 mcg/actuation inhaler atorvastatin 40 mg tablet Commonly known as: Lipitor cetirizine 10 mg tablet Commonly known as: ZyrTEC citalopram 10 mg tablet Commonly known as: CeleXA Eliquis 5 mg tablet Generic drug: apixaban Take 1 tablet (5 mg) by mouth in the morning and at bedtime. furosemide 20 mg tablet Commonly known as: Lasix hydroCHLOROthiazide 12.5 mg tablet losartan 25 mg tablet Commonly known as: Cozaar Take 1 tablet (25 mg) by mouth in the morning. methIMAzole 5 mg tablet Commonly known as: Tapazole metoprolol tartrate 50 mg tablet Commonly known as: Lopressor Take 1 tablet (50 mg) by mouth in the morning and at bedtime. nitroglycerin 0.4 mg SL tablet Commonly known as: Nitrostat ASK your doctor about these medications Instructions Last Dose Given Next Dose Due dapagliflozin propanediol 10 mg Commonly known as: Farxiga Take 1 tablet (10 mg) by mouth in the morning. Where to Get Your Medications Information about where to get these medications is not yet available Ask your nurse or doctor about these medications losartan 25 mg tablet Shahida has No Known Allergies. Disposition: Home or Self Care Discharge Condition: Stable Code Status: Prior Diagnostic Results Hematology: Results from last 7 days Lab Units 05/25/23 0447 05/24/23 2140 WBC AUTO 10*3/uL 5.38 4.93 HEMOGLOBIN g/dL 10.5* 10.9* HEMATOCRIT % 32.9* 33.3* MCV fL 81.6* 79.9* PLATELETS AUTO 10*3/uL 213 237 INR -- 1.19* Chemistry: Results from last 7 days Lab Units 05/26/23 0748 05/25/23 0446 05/24/23 2140 SODIUM mmol/L 139 141 142 POTASSIUM mmol/L 4.1 4.4 3.3* CHLORIDE mmol/L 108* 112* 111* CO2 mmol/L 23 25 26 BUN mg/dL 18 19 22 CREATININE mg/dL 0.85 0.80 0.85 GLUCOSE mg/dL 85 97 132* MAGNESIUM mg/dL (more content not included)... Normal [facility] MAGNESIUMon 05-26-2023 Magnesium [Mass/Vol] 1.6 mg/dL Low 1.9-2.7 [facility] Comment on above: Performed By: #### L [id number] ####[facility] ([facility])[address] [place] [address] 30on 05-25-2023 30 The patient is Moderately Stable - Low risk of patient condition declining or worsening The patient's goals for the shift include comfort The clinical goals for the shift include VSS; safety Over the shift, the patient did not make progress toward the following goals. Barriers to progression include dizziness. Recommendations to address these barriers include SBA with ambulating. Normal [facility] 30 Daily Case Managemen t Update Multidisciplinary rounds have been completed. Barriers to Discharge: Pending clinical course and improvement in clinical condition. Patient was transferred from [facility] with paroxysmal a-fib/flutter w/ RVR, nonsustained VT's, PVC's, and multiple 3 second pauses. Patient was to be seen by her PCP, but prior to evaluation by PCP patient developed shortness of breath and chest pain in office. Patient was transferred to ED, and subsequently transferred here for higher level of care. Cardiology feels that patients underlying cardiac issues are likely secondary to her hyperthyroidism. Cardiology will have EP MD see patient. Patient is from home. Diet: Dietary Orders (From admission, onward) Start Ordered 05/25/23 1533 Dietary nutrition supplements TID; Boost Plus; Vanilla; Oral; 8 oz Until discontinued Question Answer Comment Deliver with TID Select supplement: Boost Plus Flavor Vanilla Route Oral Strength: 8 oz 05/25/23 1532 05/25/23 1334 Regular Diet Heart Healthy/HTN, CABG,Stroke, (2gNA, low fat, low cholesterol) Diet effective now Question Answer Comment Room Service? Yes Fat restriction: Heart Healthy/HTN, CABG,Stroke, (2gNA, low fat, low cholesterol) 05/25/23 1333 Physician Expected Discharge Date: 05/27/2023 Discharge Delays: PT Six Click Score: 24 OT Six Click Score: PT Recommendations: OT Recommendations: Does patient understand post acute plan of care? Yes Is expected discharge disposition appropriate for patient?: Yes New Consults: Consult Orders (From admission, onward) Start Ordered 05/25/23 1245 Inpatient consult to Electrophysiology Once Specialty: Electrophysiology Provider: (Not yet assigned) Question Answer Comment Consulting Group ELECTROPHYSIOLOGY TEAM Reason for Consult? frequent pauses, afib with rvr Level of Consultation Consultation and Management 05/25/23 1245 Normal [facility] 30 Problem: Pain - Adul t Goal: Verbalizes/displays adequate comfort level or baseline comfort level Outcome: Progressing Flowsheets (Taken 05/25/2023 0800) Verbalizes/displays adequate comfort level or baseline comfort level: Encourage patient to monitor pain and request assistance Assess pain using appropriate pain scale Administer analgesics based on type and severity of pain and evaluate response Implement non-pharmacological measures as appropriate and evaluate response Problem: Safety - Adult Goal: Free from fall injury Outcome: Progressing Flowsheets (Taken 05/25/2023 0812) Free from fall injury: Assess patient frequently for physical needs Identify cognitive and physical deficits and behaviors that affect risk of falls [place] fall precautions as indicated by assessment Educate patient/family on patient safety, including physical limitations Instruct patient to call for assistance with activity based on assessment Modify environment to reduce risk of injury Consider OT/PT consult to assist with strengthening/mobility Problem: Discharge Planning Goal: Discharge to home or other facility with appropriate resources Outcome: Progressing Flowsheets (Taken 05/25/2023809) Discharge to home or other facility with appropriate resources: Identify barriers to discharge with patient and caregiver Arrange for needed discharge resources and transportation as appropriate Identify discharge learning needs (meds, wound care, etc) Problem: Chronic Conditions and Co-morbidities Goal: Patient's chronic conditions and co-morbidity symptoms are monitored and maintained or improved Outcome: Progressing Flowsheets (Taken 05/25/2023809) Care Plan - Patient's Chronic Conditions and Co-Morbidity Symptoms are Monitored and Maintained or Improved: Monitor and assess patient's chronic conditions and comorbid symptoms for stability, deterioration, or improvement Collaborate with multidisciplinary team to address chronic and comorbid conditions and prevent exacerbation or deterioration Update acute care plan with appropriate goals if chronic or comorbid symptoms are exacerbated and prevent overall improvement and discharge Problem: Heart Failure diagnosis knowledge deficit Goal: Patient will verbalize understanding of how heart failure affects the body Outcome: Progressing Goal: Patient will verbalize understanding of how other conditions affect the heart Outcome: Progressing Problem: Fluid retention/overload Goal: Patient will be able to identify signs and symptoms of fluid retention Outcome: Progressing Problem: Heart failure medication adherence Goal: Consistently take heart failure medication as prescribed Outcome: Progressing Problem: Insufficient exercise regimen Goal: Patient will engage in physical activity safely Outcome: Progressing Problem: Heart failure progression and care needs Goal: Patient will verbalize understanding of heart failure progression Outcome: Progressing Problem: Heart failure maintenance Goal: Patient will not experience any symptoms of shortness of breath or body swelling over the next 3 months Outcome: Progressing Problem: Neurosensory - Adult Goal: Achieves stable or improved neurological status Outcome: Progressing Flowsheets (Taken 05/25/2023809) Achieves stable or improved neurological status: Assess for and report changes in neurological status Initiate measures to prevent increased intracranial pressure Maintain blood pressure and fluid volume within ordered parameters to optimize cerebral perfusion and minimize risk of hemorrhage Monitor temperature, glucose, and sodium. Initiate appropriate interventions as ordered Problem: Respiratory - Adult Goal: Achieves optimal ventilation and oxygenation Outcome: Progressing Flowsheets (Taken 05/25/2023809) Achieves optimal ventilation and oxygenation: Assess for changes in respiratory status Assess for changes in mentation and behavior Position to facilitate oxygenation and minimize respiratory effort Problem: Cardiovascular - Adult Goal: Maintains optimal cardiac output and hemodynamic stability Outcome: Progressing Flowsheets (Taken 05/25/2023809) Maintains optimal cardiac output and hemodynamic stability: Monitor blood pressure and heart rate Monitor urine output and notify Licensed Independent Practitioner for values outside of normal range Assess for signs of decreased cardiac output Problem: Skin/Tissue Integrity - Adult Goal: Skin integrity remains intact Outcome: Progressing Flowsheets (Taken 05/25/2023809) Skin integrity remains intact: Monitor for areas of redness and/or skin breakdown Assess vascular access sites hourly Problem: Musculoskeletal - Adult Goal: Return mobility to safest level of function Outcome: Progressing Flowsheets (Taken 05/25/2023809) Return mobility to safest level of function: Assess patient stability and acti (more content not included)... Normal [facility] 30 The patient is Moderately Stable - Low risk of patient condition declining or worsening The patient's goals for the shift include comfort The clinical goals for the shift include vss Over the shift, the patient did not make progress toward the following goals. Barriers to progression include hypokalemia. Recommendations to address these barriers include oral K. Normal [facility] APTTon 05-25-2023 ACTIVATED PARTIAL THROMBOPLASTIN TIME IN PPP BY COAGULATION ASSAY 86.2 Seconds High 25.0-35.0 [facility] Comment on above: Result Comment: Clin ical significance of the APTT is questionable in the presence of heparin. Performed By: #### L [id number] ####[facility] ([facility]AKER)[address] [place] [address] ACTIVATED PARTIAL THROMBOPLASTIN TIME IN PPP BY COAGULATION ASSAY 100.9 Seconds High 25.0-35.0 [facility] Comment on above: Result Comment: Clin ical significance of the APTT is questionable in the presence of heparin. Performed By: #### L [id number] #### [facility] ([facility]) [address] [place] [address] ACTIVATED PARTIAL THROMBOPLASTIN TIME IN PPP BY COAGULATION ASSAY 175.6 Seconds Critically high 25.0-35.0 [facility] Comment on above: Order Comment: Check aPTT every 6 hours while on heparin infusion, or per protocol. Result Comment: Clin ical significance of the APTT is questionable in the presence of heparin. Performed By: #### L [id number] #### [facility] [address] [place] [address] BASIC METABOLIC PANELon 05-15 Anion gap [Moles/Vol] 8 mmol/L Normal 7-20 [facility] Comment on above: Performed By: #### L [id number] #### [facility] ([facility]) [address] [place] [address] Calcium [Mass/Vol] 9.5 mg/dL Normal 8.6-10.3 [facility] Comment on above: Performed By: #### L [id number] #### [facility] [address] [place] [address] Chloride [Moles/Vol] 112 mmol/L High 98-107 [facility] Comment on above: Performed By: #### L [id number] #### [facility] [address] [place] [address] CO2 [Moles/Vol] 25 mmol/L Normal 21-31 [facility] Comment on above: Performed By: #### L [id number] #### [facility] [address] [place] [address] Creatinine [Mass/Vol] 0.80 mg/dL Normal 0.60-1.20 [facility] Comment on above: Performed By: #### L [id number] #### [facility] ([facility]) [address] [place] [address] GLOMERULAR FILTRATION RATE ML/MIN/1.73 SQ M.PREDICTED 88.0 mL/min/1.73m*2 Normal >60.0 [facility] Comment on above: Result Comment: The [facility]???s estimated glomerular filtration rate (eGFR) will no longer include consideration of race in its calculation. The National Kidney Foundation???s eGFR Task Force developed new recommendations for the estimation of the glomerular filtration rate in the [place] They recommend immediate implementation of the new equation refit without the race variable in all laboratories because the calculation does not include race. In addition to not including race in the calculation and reporting, it included diversity in its development, and has acceptable performance characteristics and potential consequences that do not disproportionately affect any one group of individuals. Performed By: #### L [id number] #### [facility] ([facility]) [address] [place] [address] Glucose [Mass/Vol] 97 mg/dL Normal 70-100 [facility] Comment on above: Performed By: #### L [id number] #### [facility] ([facility]) [address] [facility] [address] Potassium [Moles/Vol] 4.4 mmol/L Normal 3.5-5.1 [facility] Comment on above: Performed By: #### L [id number] #### [facility] ([facility]) [address] [place] [address] Sodium [Moles/Vol] 141 mmol/L Normal 136-145 [facility] Comment on above: Performed By: #### L [id number] #### [facility] ([facility]) [address] [facility] [address] Urea nitrogen [Mass/Vol] 19 mg/dL Normal 7-25 [facility] Comment on above: Performed By: #### L [id number] #### [facility] ([facility]) [address] [place] [address] UREA NITROGEN/CREATININE (MASS RATIO) IN SER/PLAS 23.8 Normal [facility] Comment on above: Performed By: #### L [id number] #### [facility] ([facility]) [address] [place] [address] CBCon 05-25-2023 Erythrocyte distribution width (RBC) [Ratio] 15.4 % High 11.5-15.0 [facility] Comment on above: Performed By: #### L [id number] #### [facility] ([facility]) [address] [place] [address] ERYTHROCYTE MEAN CORPUSCULAR HEMOGLOBIN CONCENTRATION (G/DL) BY AUTOMATED 31.9 g/dL Low 32.0-35.0 [facility] Comment on above: Performed By: #### L [id number] #### [facility] ([facility]) [address] [place] [address] Hematocrit (Bld) [Volume fraction] 32.9 % Low 36.0-48.0 [facility] Comment on above: Performed By: #### L [id number] #### [facility] ([facility]) [address] [place] [address] Hemoglobin (Bld) [Mass/Vol] 10.5 g/dL Low 12.0-15.0 [facility] Comment on above: Performed By: #### L [id number] #### [facility] ([facility]) [address] [place] [address] MCH (RBC) [Entitic mass] 26.1 pg Low 27.0-33.0 [facility] Comment on above: Performed By: #### L [id number] #### [facility] ([facility]) [address] [place] [address] MCV (RBC) [Entitic vol] 81.6 fL Low 82.0-98.0 [facility] Comment on above: Performed By: #### L [id number] #### [facility] ([facility]) [address] [place] [address] PLATELETS (10*3/UL) IN BLOOD AUTOMATED COUNT 213 10*3/uL Normal 150-400 [facility] Comment on above: Performed By: #### L [id number] #### [facility] [address] [place] [address] RBC (Bld) [#/Vol] 4.03 10*6/uL Normal 3.80-5.00 [facility] Comment on above: Performed By: #### L [id number] #### [facility] ([facility]) [address] [facility] [place] [address] WBC (Bld) [#/Vol] 5.38 10*3/uL Normal 4.00-10.60 [facility] Comment on above: Performed By: #### L [id number] #### [facility] ([facility]) [address] [place] [address] CONSULTon 05-25-2023 CONSULT -- Attestation signed by Perla Esquivel MD at 05/25/2023 3:40 PM I personally saw and examined the patient on the same date of service as resident/fellow Dr Marley. I discussed the findings and therapeutic plan with the resident/fellow Dr Marley. I agree with the documentation, except for any edits/updates below. Teaching Physician's Revisions: Perla Esquivel MD, MPH, [facility], [facility], [facility] Interventional Cardiology Pager Email: [email or web address] Cardiology Consult Note Reason for Consult: Chest pain and shortness of breath HPI: Shahida Mirza is a 52 y.o. female with medical history of heart failure with preserved ejection fraction, COPD, hypertension, nonsustained ventricular tachycardia seen on event monitor, frequent sinus pauses, who came to the hospital as a transfer from [facility] due to chest pain. Patient reports she has no chest pain. However, she has been having dizziness and lightheadedness. Patient endorsed shortness of breath. She has activity limitations due to breathing difficulty. She denied ongoing chest pain. At outside facility, patient was found to have atrial fibrillation with RVR. She was seen prior EP clinic due to concern for 30-day VT is showing on 30-day event monitor and multiple 3-second pauses. She has a diagnosis of atrial flutter as well Chart review revealed that the patient had an EKG showing atrial fibrillation and another EKG showing sinus rhythm with multiple PVCs. Her TSH was low at less than 0.007 Cardiology ROS: Negative except as mentioned. Past Medical History She has a past medical history of Abnormal ECG, Arrhythmia, CHF (congestive heart failure) ([facility]), COPD (chronic obstructive pulmonary disease) ([facility]), Hypertension, and NSVT (nonsustained ventricular tachycardia) ([facility]). Surgical History She has a past surgical history that includes Appendectomy. Social History She reports that she has never smoked. She has been exposed to tobacco smoke. She has never used smokeless tobacco. No history on file for alcohol use and drug use. Family History Family History Problem Relation Name Age of Onset Other (pacemaker) Mother Coronary artery disease Father Other (CABG) Father Allergies Patient has no known allergies. Medications Medications Prior to Admission Medication Sig Dispense Refill Last Dose albuterol 90 mcg/actuation inhaler Inhale 2 puffs every 6 (six) hours if needed for wheezing. atorvastatin (Lipitor) 40 mg tablet Take 10 mg by mouth at bedtime. cetirizine (ZyrTEC) 10 mg tablet 1 (one) time each day at the same time. citalopram (CeleXA) 10 mg tablet Take 20 mg by mouth if needed. dapagliflozin (Farxiga) 10 mg Take 1 tablet (10 mg) by mouth in the morning. (Patient not taking: Reported on 04/18/2023) 90 tablet 3 Eliquis 5 mg tablet Take 1 tablet (5 mg) by mouth in the morning and at bedtime. 60 tablet 11 furosemide (Lasix) 20 mg tablet Take 20 mg by mouth if needed. hydroCHLOROthiazide 12.5 mg tablet Take 12.5 mg by mouth in the morning. losartan (Cozaar) 100 mg tablet Take 1 tablet (100 mg) by mouth in the morning. (Patient taking differently: Take 25 mg by mouth in the morning.) 90 tablet 3 methIMAzole (Tapazole) 5 mg tablet Take 10 mg by mouth in the morning and at bedtime. metoprolol tartrate (Lopressor) 50 mg tablet Take 1 tablet (50 mg) by mouth in the morning and at bedtime. 60 tablet 11 nitroglycerin (Nitrostat) 0.4 mg SL tablet as directed Sublingual daily as directed for 30 days Last Recorded Vitals Patient Vitals for the past 24 hrs: BP Temp Temp src Pulse Resp SpO2 Height Weight 05/25/23 0800 125/63 36.9 ???C (98.5 ???F) Temporal 70 18 100 % -- -- 05/25/23 0600 -- -- -- -- -- -- -- 49 kg (108 lb) 05/25/23 0400 123/51 36.9 ???C (98.4 ???F) -- 76 -- 100 % -- 49 kg (108 lb 0.4 oz) 05/24/23 2352 115/86 36.7 ???C (98 ???F) Oral 86 22 -- 1.524 m (5') 49 kg (108 lb) 05/24/232029 137/65 36.9 ???C (98.5 ???F) -- 75 16 98 % -- -- 05/24/232027 -- -- -- -- -- -- 1.524 m (5') 51.7 kg (113 lb 15.7 oz) Physical Examination: GENERAL: AOx3, in no acute distress. HEAD: Atraumatic, normocephalic. EYES: MILY, EOMI. NECK: No JVD present. CARDIAC: RRR. No murmur, rubs, or gallops. RESPIRATORY: CTAB, no increased effort of breathing. ABDOMEN: Soft, nontender, nondistended. EXTREMITIES: No lower extremity edema, peripheral pulses are 2+ bilaterally. NEURO: No focal deficits Relevant Lab Results No results found for this or any previous visit (from the past 4464 hour(s)). Lab Results Component Value Date TROPONINI 0.01 05/25/2023 No echocardiogram results found for the past 12 months No nuclear medicine results found for the past 12 months Relevant Imaging Results No image results found. (more content not included)... [facility] MAGNESIUMon 05-25-2023 Magnesium [Mass/Vol] 2.1 mg/dL Normal 1.9-2.7 [facility] Comment on above: Performed By: #### L [id number] #### [facility] ([facility]AKER) [address] [place] [address] T3on 05-25-2023 TRIIODOTHYRONINE (T3) (NG/DL) IN SER/PLAS 247 ng/dL High 80-200 [facility] Comment on above: Result Comment: REFE RENCE INTERVAL: Triiodothyronine, Total (Total T3) Access complete set of age- and/or gender-specific reference intervals for this test in the [facility] Test Directory ([employer]). Performed By: [facility] [address] [place] [id number] Refrigerator Assembler: Roman Romo MD, PhD CLIA Number: [id number] Performed By: #### L [id number] ####[facility] ([facility])[address] [place] [address] T3, FREEon 05-25-2023 TRIIODOTHYRONINE (T3) FREE (PG/ML) IN SER/PLAS 3.8 pg/mL Normal 2.5-3.9 [facility] Comment on above: Performed By: #### L [id number] #### [facility] ([facility]) [address] [place] [address] T4, FREEon 05-25-2023 THYROXINE (T4) FREE (NG/DL) IN SER/PLAS 0.70 ng/dL Low 0.71-1.85 [facility] Comment on above: Performed By: #### L [id number] #### [facility] ([facility]) [address] [place] [address] THYROID STIMULATING IMMUNOGL OBULINon 05-25-2023 THYROID STIMULATING IMMUNOGLOBULIN >40.00 High <=0.54 [facility] Comment on above: Result Comment: INTE RPRETIVE INFORMATION: Thyroid Stimulating Immunoglobulin (TSI) 0.54 IU/L or less.........Consistent with healthy thyroid function or non-Graves thyroid or autoimmune disease. Those with healthy thyroid function typically have results less than 0.1 IU/L. 0.55 IU/L or greater......Consistent with Graves disease (autoimmune hyperthyroidism) This assay specifically detects thyroid stimulating autoantibodies. For diagnostic purposes, the results obtained from this assay should be used in combination with clinical examination, patient medical history, and other findings. Performed By: [facility] [address] [place] [address] Refrigerator Assembler: Roman Romo MD, PhD CLIA Number: [id number] Performed By: #### L [id number] ####[facility] ([facility])[address] [place] [address] TROPONIN Ion 05-25-2023 Troponin I.cardiac [Mass/Vol] 0.01 ng/mL Normal 0.00-0.04 [facility] Comment on above: Performed By: #### L [id number] #### [facility] ([facility]) [address] [place] [address] Troponin I.cardiac [Mass/Vol] 0.01 ng/mL Normal 0.00-0.04 [facility] Comment on above: Performed By: #### L [id number] ####[facility] ([facility])[address] [place] [address] TSH RECEPTOR ANTIBODYon 05-15 TSH RECEPTOR ANTIBODY 23.70 IU/L High <=1.75 [facility] Comment on above: Result Comment: Perf ormed By: [facility] [address] [place] [address] Refrigerator Assembler: Roman Romo MD, PhD CLIA Number: [id number] Performed By: #### L [id number] ####[facility])[address] [place] [address] TSH3 REFLEX TO FT4on 024 THYROTROPIN (MIU/L) IN SER/PLAS BY DETECTION LIMIT <= 0.05 MIU/L <0.01 Low 0.34-5.60 [facility] Comment on above: Performed By: #### L [id number] #### [facility] ([facility]) [address] [place] [address] 30on 05-24-2023 30 The patient is Moderately Stable - Low risk of patient condition declining or worsening The patient's goals for the shift include comfort The clinical goals for the shift include vss Over the shift, the patient did not make progress toward the following goals. Barriers to progression include afib w/ rvr. Recommendations to address these barriers include medication compliance. Normal [facility] APTTon 05-24-2023 ACTIVATED PARTIAL THROMBOPLASTIN TIME IN PPP BY COAGULATION ASSAY 30.0 Seconds Normal 25.0-35.0 [facility] Comment on above: Result Comment: Clin ical significance of the APTT is questionable in the presence of heparin. Performed By: #### L [id number] #### [facility] ([facility]) [address] [place] [address] CBC WITH AUTO DIFFERENTIALon 05-24-2023 Basophils (Bld) [#/Vol] 0.01 10*3/uL Normal 0.00-0.20 [facility] Comment on above: Performed By: #### L [id number] ####[facility] ([facility])[address] [place] [address] Basophils/100 WBC (Bld) 0.2 % Normal 0.0-1.0 [facility] Comment on above: Performed By: #### L [id number] ####[facility] ([facility])[address] [place] [address] Eosinophils (Bld) [#/Vol] 0.03 10*3/uL Normal 0.00-0.50 [facility] Comment on above: Performed By: #### L [id number] ####[facility] ([facility])[address] [place] [address] Eosinophils/100 WBC (Bld) 0.6 % Normal 0.0-6.0 [facility] Comment on above: Performed By: #### L [id number] ####[facility] ([facility])[address] [place] [address] Erythrocyte distribution width (RBC) [Ratio] 15.4 % High 11.5-15.0 [facility] Comment on above: Performed By: #### L [id number] ####[facility] (BEAKER)[address] [place] [address] ERYTHROCYTE MEAN CORPUSCULAR HEMOGLOBIN CONCENTRATION (G/DL) BY AUTOMATED 32.7 g/dL Normal 32.0-35.0 [facility] Comment on above: Performed By: #### L [id number] ####[facility] (BEAKER)[address] [place] [address] Hematocrit (Bld) [Volume fraction] 33.3 % Low 36.0-48.0 [facility] Comment on above: Performed By: #### L [id number] ####[facility] (BEAKER)[address] [place] [address] Hemoglobin (Bld) [Mass/Vol] 10.9 g/dL Low 12.0-15.0 [facility] Comment on above: Performed By: #### L [id number] ####[facility] (BEAKER)[address] [place] [address] Immature granulocytes (Bld) [#/Vol] 0.01 10*3/uL Normal 0.00-0.20 [facility] Comment on above: Performed By: #### L [id number] ####[facility] (BEAKER)[address] [place] [address] Immature granulocytes/100 WBC (Bld) 0.2 % Normal 0.0-1.0 [facility] Comment on above: Performed By: #### L [id number] ####[facility] (BEAKER)[address] [place] [address] Lymphocytes (Bld) [#/Vol] 2.12 10*3/uL Normal 1.20-4.00 [facility] Comment on above: Performed By: #### L [id number] ####[facility] (BEAKER)[address] [place] [address] Lymphocytes/100 WBC (Bld) 43.0 % Normal 20.0-45.0 [facility] Comment on above: Performed By: #### L [id number] ####[facility] (BEAKER)[address] [place] [address] MCH (RBC) [Entitic mass] 26.1 pg Low 27.0-33.0 [facility] Comment on above: Performed By: #### L [id number] ####[facility] [place] [address] MCV (RBC) [Entitic vol] 79.9 fL Low 82.0-98.0 [facility] Comment on above: Performed By: #### L [id number] ####[facility] [place] [address] Monocytes (Bld) [#/Vol] 0.31 10*3/uL Normal 0.10-1.00 [facility] Comment on above: Performed By: #### L [id number] ####[facility] [place] [address] Monocytes/100 WBC (Bld) 6.3 % Normal 5.0-12.0 [facility] Comment on above: Performed By: #### L [id number] ####[facility] [place] [address] Neutrophils (Bld) [#/Vol] 2.45 10*3/uL Normal 1.60-7.60 [facility] Comment on above: Performed By: #### L [id number] ####[facility] (BEAKER)[address] [place] [address] Neutrophils/100 WBC (Bld) 49.7 % Normal 40.0-72.0 [facility] [facility] Comment on above: Performed By: #### L [id number] ####[facility] [place] [address] NRBC (PER 100 WBCS) BY AUTOMATED COUNT 0.0 % Normal 0 [facility] Comment on above: Performed By: #### L [id number] ####[facility] ([facility] [place] [address] PLATELETS (10*3/UL) IN BLOOD AUTOMATED COUNT 237 10*3/uL Normal 150-400 [facility] Comment on above: Performed By: #### L [id number] ####[facility] ([facility])[address] [place] [address] RBC (Bld) [#/Vol] 4.17 10*6/uL Normal 3.80-5.00 [facility] Comment on above: Performed By: #### L [id number] ####[facility] ([facility])[address] [place] [address] WBC (Bld) [#/Vol] 4.93 10*3/uL Normal 4.00-10.60 [facility] Comment on above: Performed By: #### L [id number] ####[facility] ([facility])[address] [place] [address] COMPREHENSIVE METABOLIC PANE Hank 05-24-2023 Albumin [Mass/Vol] 4.2 g/dL Normal 3.5-5.7 [facility] Comment on above: Performed By: #### L [id number] #### [facility] ([facility]) [address] [place] [address] ALP [Catalytic activity/Vol] 149 U/L High 34-104 [facility] Comment on above: Performed By: #### L [id number] #### [facility] ([facility]) [address] [place] [address] ALT [Catalytic activity/Vol] 25 U/L Normal 7-52 [facility] Comment on above: Performed By: #### L [id number] #### [facility] ([facility]) [address] [place] [address] Anion gap [Moles/Vol] 8 mmol/L Normal 7-20 [facility] Comment on above: Performed By: #### L [id number] #### [facility] ([facility]) [address] [place] [address] AST [Catalytic activity/Vol] 15 U/L Normal 13-39 [facility] Comment on above: Performed By: #### L [id number] #### [facility] [address] [place] [address] Bilirubin [Mass/Vol] 0.4 mg/dL Normal 0.3-1.0 [facility] Comment on above: Performed By: #### L [id number] #### [facility] ([facility]) [address] [place] [address] Calcium [Mass/Vol] 9.6 mg/dL Normal 8.6-10.3 [facility] Comment on above: Performed By: #### L [id number] #### [facility] ([facility]) [address] [place] [address] Chloride [Moles/Vol] 111 mmol/L High 98-107 [facility] Comment on above: Performed By: #### L [id number] #### [facility] ([facility]) [address] [place] [address] CO2 [Moles/Vol] 26 mmol/L Normal 21-31 [facility] Comment on above: Performed By: #### L [id number] #### [facility] ([facility]) [address] [place] [address] Creatinine [Mass/Vol] 0.85 mg/dL Normal 0.60-1.20 [facility] Comment on above: Performed By: #### L [id number] #### [facility] [address] [place] [address] GLOMERULAR FILTRATION RATE ML/MIN/1.73 SQ M.PREDICTED 81.9 mL/min/1.73m*2 Normal >60.0 [facility] Comment on above: Result Comment: The [facility]???s estimated glomerular filtration rate (eGFR) will no longer include consideration of race in its calculation. The National Kidney Foundation???s eGFR Task Force developed new recommendations for the estimation of the glomerular filtration rate in the [place] They recommend immediate implementation of the new equation refit without the race variable in all laboratories because the calculation does not include race. In addition to not including race in the calculation and reporting, it included diversity in its development, and has acceptable performance characteristics and potential consequences that do not disproportionately affect any one group of individuals. Performed By: #### L [id number] #### [facility] ([facility]) [address] [place] [address] Glucose [Mass/Vol] 132 mg/dL High 70-100 [facility] Comment on above: Performed By: #### L [id number] #### [facility] ([facility]) [address] [place] [address] Potassium [Moles/Vol] 3.3 mmol/L Low 3.5-5.1 [facility] Comment on above: Performed By: #### L [id number] #### [facility] ([facility]) [address] [place] [address] Protein [Mass/Vol] 6.3 g/dL Normal 6.0-8.3 [facility] Comment on above: Performed By: #### L [id number] #### [facility] ([facility]) [address] [place] [address] Sodium [Moles/Vol] 142 mmol/L Normal 136-145 [facility] Comment on above: Performed By: #### L [id number] #### [facility] ([facility]) [address] [place] [address] Urea nitrogen [Mass/Vol] 22 mg/dL Normal 7-25 [facility] Comment on above: Performed By: #### L [id number] #### [facility] ([facility]) [address] [place] [address] UREA NITROGEN/CREATININE (MASS RATIO) IN SER/PLAS 25.9 Normal [facility] Comment on above: Performed By: #### L [id number] #### [facility] ([facility]) [address] [place] [address] LACTIC ACID WITH 4 HOUR REFL EXon 05-24-2023 LACTATE (MMOL/L) IN SER/PLAS 0.9 mmol/L Normal 0.5-2.2 [facility] Comment on above: Performed By: #### L [id number] #### [facility] ([facility]) [address] [place] [address] MAGNESIUMon 05-24-2023 Magnesium [Mass/Vol] 1.6 mg/dL Low 1.9-2.7 [facility] Comment on above: Performed By: #### L [id number] #### [facility] ([facility]) [address] [place] [address] PHOSPHORUSon 05-24-2023 Magnesium [Mass/Vol] 2.1 mg/dL Low 2.5-5.0 [facility] Comment on above: Performed By: #### L [id number] #### [facility] ([facility]) [address] [place] [address] PROTIME-INRon 05-24-2023 INR IN PPP BY COAGULATION ASSAY 1.19 High 0.90-1.10 [facility] Comment on above: Result Comment: ACCC P RECOMMENDED INR FOR WARFARIN THERAPY CONDITION INR PROPHYLAXIS OF VENOUS THROMBOSIS 2-3 (HIGH-RISK SURGERY) TREATMENT OF VENOUS THROMBOSIS 2-3 TREATMENT OF PULMONARY EMBOLISM 2-3 PREVENTION OF SYSTEMIC EMBOLISM: 2-3 ACUTE MYOCARDIAL INFARCTION TISSUE HEART VALVES VALVULAR HEART DISEASE ATRIAL FIBRILLATION RECURRENT SYSTEMIC EMBOLISM MECHANICAL HEART VALVE 2.5-3.5 FROM: ORAL ANTICOAGULANTS. MECHANISM OF ACTION, CLINICAL EFFECTIVENESS, AND OPTIMAL THERAPEUTIC RANGE. CHEST 1995;108:231S-246S. Performed By: #### L [id number] #### [facility] ([facility]) [address] [place] [address] PROTHROMBIN TIME (PT) IN PPP BY COAGULATION ASSAY 15.1 Seconds High 12.3-14.8 [facility] Comment on above: Performed By: #### L [id number] #### [facility] ([facility]) [address] [place] [address] TROPONIN Ion 05-24-2023 Troponin I.cardiac [Mass/Vol] 0.01 ng/mL Normal 0.00-0.04 [facility] Comment on above: Performed By: #### L [id number] #### [facility] ([facility]) [address] [place] [address] Office Visiton 04-18-2023 Follow-up visit [id number] Shahida Mirza 1970 Date Provider Department Center 04/18/2023 FABIAN DALE[facility] Family History Problem Relation Age of Onset Other Mother Coronary artery disease Father Other Father Family Status - Relation Status Age at Mother Father Level of Service:16519 IN OFFICE/OUTPATIENT ESTABLISHED MOD MDM 30-39 MIN Normal [facility] Orders Onlyon 04-18-2023 Orders Only [id number] Shahida Mirza 1970 Provider Department Center 04/18/2023 OTONIEL FOY Family History Problem Relation Age of Onset Other Mother Coronary artery disease Father Other Father Family Status - Relation Status Age at Mother Father Normal [facility] Office Visiton 03-07-2023 Follow-up visit [id number] Shahida Mirza 1970 Date Provider Department Center 03/07/2023 FABIAN DALEY Family History Problem Relation Age of Onset Other Mother Coronary artery disease Father Other Father Family Status - Relation Status Age at Mother Father Level of Service:62971 IN OFFICE/OUTPATIENT NEW HIGH MDM 60-74 MINUTES Normal [facility] Office Visiton 01-09-2023 Follow-up visit [id number] Shahida Mirza 1970 Date Provider Department Center 01/09/2023 DANN THIBODEAUXNY SHASHANK [facility] No family history on file Level of Service:30917 IN OFFICE/OUTPATIENT ESTABLISHED MOD MDM 30-39 MIN Normal [facility] Office Visiton 11-25-2022 Follow-up visit [id number] Shahida Mirza Anant 1970 F Date Provider Department Center 11/25/2022 1596-CHOLO AMADOR SHASHANK [facility] No family history on file Level of Service:81324 IN OFFICE/OUTPATIENT ESTABLISHED MOD MDM 30-39 MIN Normal [facility] 37on 10-28-2022 37 -Weigh yourself ai y, if you gain more than 2 Ibs in one day or 5 Ibs in 1 week take Lasix for 3 days and let us know -Start Farxiga 10 mg daily -Stop taking Losartan-hydrochloroth iazide -Start Losartan 100 mg daily -Check labs in 1 week after starting Farxiga [facility] Office Visiton 10-28-2022 Follow-up visit [id number] Shahida Mirza 1970 F Date Provider Department Center 10/28/2022 [id number] BAILEY [facility] No family history on file Level of Service:46573 IN OFFICE/OUTPATIENT ESTABLISHED MOD MDM 30-39 MIN Reason for Visit and Comments: New Patient [632] - New pt here for Hospital Follow up Holter motion results [facility] BNPon 10-09-2022 Natriuretic peptide B (Bld) [Mass/Vol] 48417.0 pg/mL Critically high <=900.0 [facility] Comment on above: Performed By: #### M G, BNP, CMP #### [facility] [address] [address] [address] Celina Venegas CBC AUTO DIFFon 10-09-2022 BASO # 0.0 103/ul Normal 0.0-0.1 [facility] Comment on above: Performed By: #### H STROPN #### [facility] [address] [address] [address] Celina Venegas Basophils/100 WBC (Bld) 0.1 % Critically low 0.2-2.0 [facility] Comment on above: Performed By: #### H STROPN #### [facility] [address] [address] [address] Celina Venegas EO # 0.0 103/ul Normal 0.0-0.7 [facility] Comment on above: Performed By: #### H STROPN #### [facility] [address] [address] [address] Celina Venegas Eosinophils/100 WBC (Bld) 0.1 % Critically low 0.9-7.0 [facility] Comment on above: Performed By: #### H STROPN #### [facility] [address] [address] [address] Celina Venegas Erythrocyte distribution width (RBC) [Ratio] 14.9 % Normal 11.0-15.0 [facility] Comment on above: Performed By: #### H STROPN #### [facility] [address] [place] [address] Dr. Celina Venegas Hematocrit (Bld) [Volume fraction] 28.5 % Critically low 36.0-48.0 [facility] Comment on above: Performed By: #### H STROPN #### [facility] [address] [place] [address] Dr. Celina Venegas Hemoglobin (Bld) [Mass/Vol] 9.1 g/dL Critically low 12.0-16.0 [facility] Comment on above: Performed By: #### H STROPN #### [facility] [address] [address] [address] Celina Venegas IG # 0.08 10e3/ul Critically high 0.00-0.03 [facility] Comment on above: Performed By: #### H STROPN #### [facility] [address] [place] [address] Dr. Celina Venegas IG % 1.2 % Critically high 0.0-0.5 [facility] Comment on above: Performed By: #### H STROPN #### [facility] [address] [address] [address] Celina Venegas LYMPH # 1.8 103/ul Normal 1.2-3.8 [facility] Comment on above: Performed By: #### H STROPN #### [facility] [address] [address] [address] Celina Venegas Lymphocytes/100 WBC (Bld) 26.7 % Normal 20.5-60.0 [facility] Comment on above: Performed By: #### H STROPN #### [facility] [address] [address] [address] Celina Venegas MANUAL DIFF REQ NO Normal [facility] Comment on above: Performed By: #### H STROPN #### [facility] [address] [address] [address] Celina Venegas MCH (RBC) [Entitic mass] 25.0 pg Critically low 26.7-34.0 [facility] Comment on above: Performed By: #### H STROPN #### [facility] [address] [place] [address] Dr. Celina Venegas MCHC (RBC) [Mass/Vol] 31.9 g/dL Normal 29.9-35.2 [facility] Comment on above: Performed By: #### H STROPN #### [facility] [address] [place] [address] Dr. Celina Venegas MCV (RBC) [Entitic vol] 78.3 fL Critically low 81.0-99.0 [facility] Comment on above: Performed By: #### H STROPN #### [facility] [address] [place] [address] Dr. Celina Venegas MONO # 0.4 103/ul Normal 0.3-0.8 [facility] Comment on above: Performed By: #### H STROPN #### [facility] [address] [place] [address] Dr. Celina Venegas Monocytes/100 WBC (Bld) 5.5 % Normal 1.7-12.0 [facility] Comment on above: Performed By: #### H STROPN #### [facility] [address] [place] [address] Dr. Celina Venegas NEUT # 4.5 103/ul Normal 1.4-6.5 [facility] Comment on above: Performed By: #### H STROPN #### [facility] [address] [address] [address] Celina Venegas Neutrophils/100 WBC (Bld) 66.4 % Normal 43.0-75.0 [facility] Comment on above: Performed By: #### H STROPN #### [facility] [address] [address] [address] Celina Venegas Platelet mean volume (Bld) [Entitic vol] 10.4 fL Normal 9.5-13.5 [facility] Comment on above: Performed By: #### H STROPN #### [facility] [address] [address] [address] Celina Venegas PLT 219 103/ul Normal 150-450 [facility] Comment on above: Performed By: #### H STROPN #### [facility] [address] [address] [address] Celina Venegas RBC 3.64 106/ul Critically low 4.20-5.40 [facility] Comment on above: Performed By: #### H STROPN #### [facility] [address] [address] [address] Celina Venegas WBC 6.8 103/ul Normal 4.0-11.0 [facility] Comment on above: Performed By: #### H STROPN #### [facility] [address] [place] [address] Dr. Celina Venegas MAGNESIUMon 10-09-2022 Magnesium [Mass/Vol] 1.7 mg/dL Critically low 1.8-2.4 [facility] Comment on above: Performed By: #### M G, BNP, CMP #### [facility] [address] [address] [address] Celina Venegas POINT OF CARE GLUCOSEon 09-13 Glucose [Mass/Vol] 120 mg/dL Critically high 74-106 [facility] Comment on above: Performed By: #### H STROPN #### [facility] [address] [place] [address] Dr. Celina Venegas POTASSIUMon 10-09-2022 Potassium [Moles/Vol] 3.6 mmol/L Normal 3.5-5.1 [facility] Comment on above: Performed By: #### M G, BNP, CMP #### [facility] [address] [address] [address] Celina Venegas PROF 14(COMP METB)on 023 Albumin [Mass/Vol] 2.6 g/dL Critically low 3.4-5.0 [facility] Comment on above: Performed By: #### M G, BNP, CMP #### [facility] [address] [address] [address] Celina Venegas Albumin/Globulin [Mass ratio] 0.8 {ratio} Normal [facility] Comment on above: Performed By: #### M G, BNP, CMP #### [facility] [address] [address] [address] Celina Venegas ALP [Catalytic activity/Vol] 112 U/L Normal 46-116 [facility] Comment on above: Performed By: #### M G, BNP, CMP #### [facility] [address] [address] [address] Celina Venegas ALT [Catalytic activity/Vol] 16 U/L Normal 14-59 [facility] Comment on above: Performed By: #### M G, BNP, CMP #### [facility] [address] [address] [address] Celina Venegas Anion gap [Moles/Vol] 10.7 mmol/L Normal [facility] Comment on above: Performed By: #### M G, BNP, CMP #### [facility] [address] [address] [address] Celina Venegas AST [Catalytic activity/Vol] 13 U/L Critically low 15-37 [facility] Comment on above: Performed By: #### M G, BNP, CMP #### [facility] [address] [address] [address] Celina Venegas Bilirubin [Mass/Vol] 0.3 mg/dL Normal 0.2-1.0 [facility] Comment on above: Performed By: #### M G, BNP, CMP #### [facility] [address] [address] [address] Celina Venegas Calcium [Mass/Vol] 8.6 mg/dL Normal 8.5-10.1 [facility] Comment on above: Performed By: #### M G, BNP, CMP #### [facility] [address] [address] [address] Celina Venegas Chloride [Moles/Vol] 109 mmol/L Critically high 98-107 [facility] Comment on above: Performed By: #### M G, BNP, CMP #### [facility] [address] [address] [address] Celina Venegas CO2 [Moles/Vol] 26.5 mmol/L Normal 21.0-32.0 [facility] Comment on above: Performed By: #### M G, BNP, CMP #### [facility] [address] [place] [address] Dr. Celina Venegas Creatinine [Mass/Vol] 0.88 mg/dL Normal 0.55-1.02 [facility] Comment on above: Performed By: #### M G, BNP, CMP #### [facility] [address] [place] [address] Dr. Celina Venegas EGFR-AF MONTENEGRIN >60 Normal >=60 [facility] Comment on above: Performed By: #### M G, BNP, CMP #### [facility] [address] [place] [address] Dr. Celina Vneegas EGFR-NON AF MONTENEGRIN >60 Normal >=60 [facility] Comment on above: Performed By: #### M G, BNP, CMP #### [facility] [address] [address] [address] Celina Venegas Globulin (S) [Mass/Vol] 3.4 g/dL Normal [facility] Comment on above: Performed By: #### M G, BNP, CMP #### [facility] [address] [place] [address] Dr. Celina Venegas Glucose [Mass/Vol] 84 mg/dL Normal 74-106 [facility] Comment on above: Performed By: #### M G, BNP, CMP #### [facility] [address] [address] [address] Celina Venegas Potassium [Moles/Vol] 2.2 mmol/L Critically low 3.5-5.1 [facility] Comment on above: Performed By: #### M G, BNP, CMP #### [facility] [address] [place] [address] Dr. Celina Venegas Protein [Mass/Vol] 6.0 g/dL Critically low 6.4-8.2 [facility] Comment on above: Performed By: #### M G, BNP, CMP #### [facility] [address] [place] [address] Dr. Celina Venegas Sodium [Moles/Vol] 142 mmol/L Normal 136-145 [facility] Comment on above: Performed By: #### M G, BNP, CMP #### [facility] [address] [place] [address] Dr. Celina Venegas Urea nitrogen [Mass/Vol] 24.0 mg/dL Critically high 7.0-18.0 [facility] Comment on above: Performed By: #### M G, BNP, CMP #### [facility] [address] [place] [address] Dr. Celina Venegas Urea nitrogen/Creatinine [Mass ratio] 27.3 mg/mg Normal [facility] Comment on above: Performed By: #### M G, BNP, CMP #### [facility] [address] [place] [address] Dr. Celina Venegas PROTIMEon 10-09-2022 INR Coag (PPP) [Relative time] 1.04 {INR} Normal [facility] Comment on above: Performed By: #### B [id number] #### [facility] [address] [place] [address] Dr. Celina Venegas INR GUIDELINES SEE BELOW Normal [facility] Comment on above: Result Comment: CAESAR RED INR: 2.0 - 3.0 CONDITIONS NOT LISTED BELOW 2.5 - 3.5 FOR PROSTHETIC HEART VALVE REPLACEMENT 2.5 - 3.5 RECURRENT THROMBOSIS Performed By: #### B [id number] #### [facility] [address] [place] [address] Dr. Celina Venegas PT Coag (PPP) [Time] 11.0 s Normal 9.0-11.6 [facility] Comment on above: Performed By: #### B [id number] #### [facility] [address] [place] [address] Dr. Celina Venegas PTTon 10-09-2022 aPTT Coag (Bld) [Time] 23.9 s Normal 22.3-36.2 [facility] Comment on above: Performed By: #### B [id number] #### [facility] [address] [place] [address] Dr. Celina Venegas BNPon 10-08-2022 Natriuretic peptide B (Bld) [Mass/Vol] 59196.0 pg/mL Critically high <=900.0 [facility] Comment on above: Performed By: #### P REG #### [facility] [address] [place] [address] Dr. Celina Venegas CBC AUTO DIFFon 10-08-2022 BASO # 0.0 103/ul Normal 0.0-0.1 [facility] Comment on above: Performed By: #### B [id number] #### [facility] [address] [place] [address] Dr. Celina Venegas Basophils/100 WBC (Bld) 0.1 % Critically low 0.2-2.0 [facility] Comment on above: Performed By: #### B [id number] #### [facility] [address] [place] [address] Dr. Celina Venegas EO # 0.0 103/ul Normal 0.0-0.7 [facility] Comment on above: Performed By: #### B [id number] #### [facility] [address] [place] [address] Dr. Celina Venegas Eosinophils/100 WBC (Bld) 0.0 % Critically low 0.9-7.0 [facility] Comment on above: Performed By: #### B [id number] #### [facility] [address] [place] [address] Dr. Celina Venegas Erythrocyte distribution width (RBC) [Ratio] 14.6 % Normal 11.0-15.0 [facility] Comment on above: Performed By: #### B [id number] #### [facility] [address] [place] [address] Dr. Celina Venegas Hematocrit (Bld) [Volume fraction] 26.6 % Critically low 36.0-48.0 [facility] Comment on above: Performed By: #### B [id number] #### [facility] [address] [place] [address] Dr. Celina Venegas Hemoglobin (Bld) [Mass/Vol] 8.4 g/dL Critically low 12.0-16.0 [facility] Comment on above: Performed By: #### B [id number] #### [facility] [address] [place] [address] Dr. Celina Venegas IG # 0.03 10e3/ul Normal 0.00-0.03 [facility] Comment on above: Performed By: #### B [id number] #### [facility] [address] [place] [address] Dr. Celina Venegas IG % 0.4 % Normal 0.0-0.5 [facility] Comment on above: Performed By: #### B [id number] #### [facility] [address] [place] [address] Dr. Celina Venegas LYMPH # 0.7 103/ul Critically low 1.2-3.8 [facility] Comment on above: Performed By: #### B [id number] #### [facility] [address] [place] [address] Dr. Celina Venegas Lymphocytes/100 WBC (Bld) 10.3 % Critically low 20.5-60.0 [facility] Comment on above: Performed By: #### B [id number] #### [facility] [address] [place] [address] Dr. Celina Venegas MANUAL DIFF REQ NO Normal [facility] Comment on above: Performed By: #### B [id number] #### [facility] [address] [address] [address] Celina Venegas MCH (RBC) [Entitic mass] 25.2 pg Critically low 26.7-34.0 [facility] Comment on above: Performed By: #### B [id number] #### [facility] [address] [place] [address] Dr. Celina Vneegas MCHC (RBC) [Mass/Vol] 31.6 g/dL Normal 29.9-35.2 [facility] Comment on above: Performed By: #### B [id number] #### [facility] [address] [place] [address] Dr. Celina Venegas MCV (RBC) [Entitic vol] 79.9 fL Critically low 81.0-99.0 [facility] Comment on above: Performed By: #### B [id number] #### [facility] [address] [place] [address] Dr. Celina Veneags MONO # 0.3 103/ul Normal 0.3-0.8 [facility] Comment on above: Performed By: #### B [id number] #### [facility] [address] [place] [address] Dr. Celina Venegas Monocytes/100 WBC (Bld) 4.9 % Normal 1.7-12.0 [facility] Comment on above: Performed By: #### B [id number] #### [facility] [address] [place] [address] Dr. Celina Venegas NEUT # 5.8 103/ul Normal 1.4-6.5 [facility] Comment on above: Performed By: #### B [id number] #### [facility] [address] [place] [address] Dr. Celina Venegas Neutrophils/100 WBC (Bld) 84.3 % Critically high 43.0-75.0 [facility] Comment on above: Performed By: #### B [id number] #### [facility] [address] [place] [address] Dr. Celina Venegas Platelet mean volume (Bld) [Entitic vol] 10.5 fL Normal 9.5-13.5 [facility] Comment on above: Performed By: #### B [id number] #### [facility] [address] [address] [address] Celina Venegas PLT 207 103/ul Normal 150-450 [facility] Comment on above: Performed By: #### B [id number] #### [facility] [address] [address] [address] Celina Venegas RBC 3.33 106/ul Critically low 4.20-5.40 [facility] Comment on above: Performed By: #### B [id number] #### [facility] [address] [address] [address] Celina Venegas WBC 6.9 103/ul Normal 4.0-11.0 [facility] Comment on above: Performed By: #### B [id number] #### [facility] [address] [place] [address] Dr. Celina Venegas MAGNESIUMon 10-08-2022 Magnesium [Mass/Vol] 1.8 mg/dL Normal 1.8-2.4 [facility] Comment on above: Performed By: #### P REG #### [facility] [address] [place] [address] Dr. Celina Venegas POINT OF CARE GLUCOSEon 09-13 Glucose [Mass/Vol] 180 mg/dL Critically high 74-106 [facility] Comment on above: Performed By: #### M G, BNP, CMP #### [facility] [address] [place] [address] Dr. Ceilna Venegas Glucose [Mass/Vol] 116 mg/dL Critically high 74-106 [facility] Comment on above: Performed By: #### M G, BNP, CMP #### [facility] [address] [place] [address] Dr. Celina Venegas PROF 14(COMP METB)on 023 Albumin [Mass/Vol] 2.4 g/dL Critically low 3.4-5.[address] [facility] Comment on above: Performed By: #### P REG #### [facility] [address] [place] [address] Dr. Celina Venegas Albumin/Globulin [Mass ratio] 0.7 {ratio} Normal [facility] Comment on above: Performed By: #### P REG #### [facility] [address] [place] [address] Dr. Celina Venegas ALP [Catalytic activity/Vol] 124 U/L Critically high 46-116 [facility] Comment on above: Performed By: #### P REG #### [facility] [address] [place] [address] Dr. Celina Venegas ALT [Catalytic activity/Vol] 17 U/L Normal 14-59 [facility] Comment on above: Performed By: #### P REG #### [facility] [address] [place] [address] Dr. Celina Venegas Anion gap [Moles/Vol] 10.6 mmol/L Normal [facility] Comment on above: Performed By: #### P REG #### [facility] [address] [place] [address] Dr. Celina Venegas AST [Catalytic activity/Vol] 14 U/L Critically low 15-37 [facility] Comment on above: Performed By: #### P REG #### [facility] [address] [place] [address] Dr. Celina Venegas Bilirubin [Mass/Vol] 0.2 mg/dL Normal 0.2-1.0 [facility] Comment on above: Performed By: #### P REG #### [facility] [address] [place] [address] Dr. Celina Venegas Calcium [Mass/Vol] 9.1 mg/dL Normal 8.5-10.1 [facility] Comment on above: Performed By: #### P REG #### [facility] [address] [place] [address] Dr. Celina Venegas Chloride [Moles/Vol] 110 mmol/L Critically high 98-107 [facility] Comment on above: Performed By: #### P REG #### [facility] [address] [place] [address] Dr. Celina Venegas CO2 [Moles/Vol] 26.8 mmol/L Normal 21.0-32.0 [facility] Comment on above: Performed By: #### P REG #### [facility] [address] [address] [address] Celina Venegas Creatinine [Mass/Vol] 0.81 mg/dL Normal 0.55-1.02 [facility] Comment on above: Performed By: #### P REG #### [facility] [address] [address] [address] Celina Venegas EGFR-AF MONTENEGRIN >60 Normal >=60 [facility] Comment on above: Performed By: #### P REG #### [facility] [address] [address] [address] Celina Venegas EGFR-NON AF MONTENEGRIN >60 Normal >=60 [facility] Comment on above: Performed By: #### P REG #### [facility] [address] [place] [address] Dr. Celina Venegas Globulin (S) [Mass/Vol] 3.6 g/dL Normal [facility] Comment on above: Performed By: #### P REG #### [facility] [address] [place] [address] Dr. Celina Venegas Glucose [Mass/Vol] 145 mg/dL Critically high 74-106 [facility] Comment on above: Performed By: #### P REG #### [facility] [address] [place] [address] Dr. Celina Venegas Potassium [Moles/Vol] 3.4 mmol/L Critically low 3.5-5.1 [facility] Comment on above: Performed By: #### P REG #### [facility] [address] [place] [address] Dr. Celina Venegas Protein [Mass/Vol] 6.0 g/dL Critically low 6.4-8.2 [facility] Comment on above: Performed By: #### P REG #### [facility] [address] [address] [address] Celina Venegas Sodium [Moles/Vol] 144 mmol/L Normal 136-145 [facility] Comment on above: Performed By: #### P REG #### [facility] [address] [place] [address] Dr. Celina Venegas Urea nitrogen [Mass/Vol] 20.0 mg/dL Critically high 7.0-18.0 [facility] Comment on above: Performed By: #### P REG #### [facility] [address] [place] [address] Dr. Celina Venegas Urea nitrogen/Creatinine [Mass ratio] 24.7 mg/mg Normal [facility] Comment on above: Performed By: #### P REG #### [facility] [address] [place] [address] Dr. Celina Venegas PROTIMEon 10-08-2022 INR Coag (PPP) [Relative time] 1.04 {INR} Normal [facility] Comment on above: Performed By: #### H STROPN #### [facility] [address] [place] [address] Dr. Celina Venegas INR GUIDELINES SEE BELOW Normal [facility] Comment on above: Result Comment: CAESAR RED INR: 2.0 - 3.0 CONDITIONS NOT LISTED BELOW 2.5 - 3.5 FOR PROSTHETIC HEART VALVE REPLACEMENT 2.5 - 3.5 RECURRENT THROMBOSIS Performed By: #### H STROPN #### [facility] [address] [place] [address] Dr. Celina Venegas PT Coag (PPP) [Time] 11.0 s Normal 9.0-11.6 [facility] Comment on above: Performed By: #### H STROPN #### [facility] [address] [place] [address] Dr. Celina Venegas PTTon 10-08-2022 aPTT Coag (Bld) [Time] 26.8 s Normal 22.3-36.2 [facility] Comment on above: Performed By: #### H STROPN #### [facility] [address] [place] [address] Dr. Celina Venegas XR CHEST 1 Von [...] by: MYCHAL STOREY Date: 2022-10-08 05:51 Normal [facility] BLOOD GASES BTYon 10-07-2022 02 MODE VENTILATOR Normal [facility] Comment on above: Performed By: #### M G, BNP, CMP #### [facility] [address] [place] [address] Dr. Celina Venegas ALLENS TEST Positive Normal [facility] Comment on above: Performed By: #### M G, BNP, CMP #### [facility] [address] [address] [address] Celina Venegas Base excess Calc (Bld) [Moles/Vol] -6.1000 mmol/L Critically low -2.0-2.0 [facility] Comment on above: Performed By: #### M G, BNP, CMP #### [facility] [address] [place] [address] Dr. Celina Venegas BIPAP PRESSURE Normal [facility] Comment on above: Performed By: #### M G, BNP, CMP #### [facility] [address] [place] [address] Dr. Celina Venegas CPAP Normal [facility] Comment on above: Performed By: #### M G, BNP, CMP #### [facility] [address] [place] [address] Dr. Celina Venegas FIO2 30.00 % Normal [facility] Comment on above: Performed By: #### M G, BNP, CMP #### [facility] [address] [place] [address] Dr. Celina Venegas HCO3 (Bld) [Moles/Vol] 20.2 mmol/L Critically low 22.0-26.0 [facility] Comment on above: Performed By: #### M G, BNP, CMP #### [facility] [address] [place], [place] [id number] Dr. Celina Venegas LPM [facility] Comment on above: Performed By: #### M G, BNP, CMP #### [facility] [address] [address] [address] Celina Venegas MINUTE VOLUME Normal [facility] Comment on above: Performed By: #### M G, BNP, CMP #### [facility] [address] [address] [address] Celina Venegas Oxygen (Bld) [Partial pressure] 102.0 mm[Hg] Critically high 80.0-100.0 [facility] Comment on above: Performed By: #### M G, BNP, CMP #### [facility] [address] [place] [address] Dr. Celina Venegas Oxygen saturation in Blood 97.8 % Normal 95.0-100.0 [facility] Comment on above: Performed By: #### M G, BNP, CMP #### [facility] [address] [place] [address] Dr. Celina Venegas PCO2 40.9 mmHg Normal 35.0-45.0 [facility] Comment on above: Performed By: #### M G, BNP, CMP #### [facility] [address] [place] [address] Dr. Celina Venegas PEEP 5 [facility] Comment on above: Performed By: #### M G, BNP, CMP #### [facility] [address] [address] [address] Celina Venegas pH (Bld) 7.303 [pH] Critically low 7.350-7.450 [facility] Comment on above: Performed By: #### M G, BNP, CMP #### [facility] [address] [address] [address] Celina Venegas [facility] Comment on above: Performed By: #### M G, BNP, CMP #### [facility] [address] [address] [address] Celina Venegas PS [facility] Comment on above: Performed By: #### M G, BNP, CMP #### [facility] [address] [place] [address] Dr. Celina Venegas PUNCTURE SITE RR Normal [facility] Comment on above: Performed By: #### M G, BNP, CMP #### [facility] [address] [place] [address] Dr. Celina Venegas RATE 16 bpm Normal [facility] Comment on above: Performed By: #### M G, BNP, CMP #### [facility] [address] [place] [address] Dr. Celina Venegas VENT MODE A/C Normal [facility] Comment on above: Performed By: #### M G, BNP, CMP #### [facility] [address] [place] [address] Dr. Celina Venegas VT 400 ML [facility] Comment on above: Performed By: #### M G, BNP, CMP #### [facility] [address] [place] [address] Dr. Celina Venegas Base excess Calc (Bld) [Moles/Vol] -2.5000 mmol/L Critically low -2.0-2.0 [facility] Comment on above: Performed By: #### M G, BNP, CMP #### [facility] [address] [place] [address] Dr. Celina Venegas HCO3 (Bld) [Moles/Vol] 23.3 mmol/L Normal 22.0-26.0 [facility] Comment on above: Performed By: #### M G, BNP, CMP #### [facility] [address] [place] [address] Dr. Celina Venegas Oxygen (Bld) [Partial pressure] 97.7 mm[Hg] Normal 80.0-100.0 [facility] Comment on above: Performed By: #### M G, BNP, CMP #### [facility] [address] [place] [address] Dr. Celina Venegas Oxygen saturation in Blood 98.0 % Normal 95.0-100.0 [facility] Comment on above: Performed By: #### M G, BNP, CMP #### [facility] [address] [place] [address] Dr. Celina Venegas PCO2 43.6 mmHg Normal 35.0-45.0 [facility] Comment on above: Performed By: #### M G, BNP, CMP #### [facility] [address] [place] [address] Dr. Celina Venegas pH (Bld) 7.336 [pH] Critically low 7.350-7.450 [facility] Comment on above: Performed By: #### M G, BNP, CMP #### [facility] [address] [place] [address] Dr. Celina Venegas CBC AUTO DIFFon 10-07-2022 BASO # 0.0 103/ul Normal 0.0-0.1 [facility] Comment on above: Performed By: #### C BC #### [facility] [address] [place] [address] Dr. Celina Venegas Basophils/100 WBC (Bld) 0.0 % Critically low 0.2-2.0 [facility] Comment on above: Performed By: #### C BC #### [facility] [address] [place] [address] Dr. Celina Venegas EO # 0.0 103/ul Normal 0.0-0.7 [facility] Comment on above: Performed By: #### C BC #### [facility] [address] [place] [address] Dr. Celina Venegas Eosinophils/100 WBC (Bld) 0.0 % Critically low 0.9-7.0 [facility] Comment on above: Performed By: #### C BC #### [facility] [address] [place] [address] Dr. Celina Venegas Erythrocyte distribution width (RBC) [Ratio] 14.6 % Normal 11.0-15.0 [facility] Comment on above: Performed By: #### C BC #### [facility] [address] [place] [address] Dr. Celina Venegas Hematocrit (Bld) [Volume fraction] 31.7 % Critically low 36.0-48.0 [facility] Comment on above: Performed By: #### C BC #### [facility] [address] [address] [address] Celina Venegas Hemoglobin (Bld) [Mass/Vol] 9.5 g/dL Critically low 12.0-16.0 [facility] Comment on above: Performed By: #### C BC #### [facility] [address] [address] [address] Celina Venegas IG # 0.04 10e3/ul Critically high 0.00-0.03 [facility] Comment on above: Performed By: #### C BC #### [facility] [address] [place] [address] Dr. Celina Venegas IG % 0.5 % Normal 0.0-0.5 [facility] Comment on above: Performed By: #### C BC #### [facility] [address] [place] [address] Dr. Celina Venegas LYMPH # 0.8 103/ul Critically low 1.2-3.8 [facility] Comment on above: Performed By: #### C BC #### [facility] [address] [place] [address] Dr. Celina Venegas Lymphocytes/100 WBC (Bld) 10.1 % Critically low 20.5-60.0 [facility] Comment on above: Performed By: #### C BC #### [facility] [address] [place] [address] Dr. Celina Venegas MANUAL DIFF REQ NO Normal [facility] Comment on above: Performed By: #### C BC #### [facility] [address] [place] [address] Dr. Celina Venegas MCH (RBC) [Entitic mass] 24.2 pg Critically low 26.7-34.0 [facility] Comment on above: Performed By: #### C BC #### [facility] [address] [place] [address] Dr. Celina Venegas MCHC (RBC) [Mass/Vol] 30.0 g/dL Normal 29.9-35.2 [facility] Comment on above: Performed By: #### C BC #### [facility] [address] [address] [address] Celina Venegas MCV (RBC) [Entitic vol] 80.7 fL Critically low 81.0-99.0 [facility] Comment on above: Performed By: #### C BC #### [facility] [address] [address] [address] Celina Venegas MONO # 0.1 103/ul Critically low 0.3-0.8 [facility] Comment on above: Performed By: #### C BC #### [facility] [address] [place] [address] Dr. Celina Venegas Monocytes/100 WBC (Bld) 1.4 % Critically low 1.7-12.0 [facility] Comment on above: Performed By: #### C BC #### [facility] [address] [place] [address] Dr. Celina Venegas NEUT # 6.8 103/ul Critically high 1.4-6.5 [facility] Comment on above: Performed By: #### C BC #### [facility] [address] [place] [address] Dr. Celina Venegas Neutrophils/100 WBC (Bld) 88.0 % Critically high 43.0-75.0 [facility] Comment on above: Performed By: #### C BC #### [facility] [address] [place] [address] Dr. Celina Venegas Platelet mean volume (Bld) [Entitic vol] 10.5 fL Normal 9.5-13.5 [facility] Comment on above: Performed By: #### C BC #### [facility] [address] [place] [address] Dr. Celina Venegas PLT 194 103/ul Normal 150-450 [facility] Comment on above: Performed By: #### C BC #### [facility] [address] [place] [address] Dr. Celina Venegas RBC 3.93 106/ul Critically low 4.20-5.40 [facility] Comment on above: Performed By: #### C BC #### [facility] [address] [place] [address] Dr. Celina Venegas WBC 7.8 103/ul Normal 4.0-11.0 [facility] Comment on above: Performed By: #### C BC #### [facility] [address] [place] [address] Dr. Celina Venegas CULTURE BLOODon 10-07-2022 Microscopic examination of blood, culture Culture Observations: NO GROWTH AT 5 DAYS. Normal [facility] Comment on above: Performed By: #### H STROPN #### [facility] [address] [place] [address] Dr. Celina Venegas Microscopic examination of blood, culture Culture Observations: NO GROWTH AT 5 DAYS. Normal [facility] Comment on above: Performed By: #### H STROPN #### [facility] [address] [place] [address] Dr. Celina Venegas ECHOCARDIO M/2D COMPLETEon 0 10-07-2022 ECHOCARDIO M/2D COMPLETE Patient: SHAHIDA MIRZA Exam Date: 10/07/2022 : 1970 Gender:F Ordering : SHAIKH Juliana SKELTON . Admission #: [id number] Family : DIVYA ACOSTA SPINDLE SANDER-C Order #: [id number] CLICK HERE TO VIEW EXAM ECHOCARDIOGRAM REPORT [...] Ramirez M.D. on 10/07/2022 at 17:48 Normal [facility] FREE T3on 10-07-2022 FREE T3 3.12 pg/mlL Normal 2.18-3.98 [facility] Comment on above: Performed By: #### B [id number] #### [facility] [address] [address] [address] Celina Venegas FREE T4on 10-07-2022 Free T4 [Mass/Vol] 1.63 ng/dL Critically high 0.76-1.46 [facility] Comment on above: Performed By: #### H STROPN #### [facility] [address] [address] [address] Celina Venegas GLYCOHEMOGLOBIN A1Con 2022 ADA RECOMMENDATION SEE BELOW Normal [facility] Comment on above: Result Comment: ADA RECOMMENDED LIMIT 4.0 - 6.0 ADA THERAPEUTIC TARGET < 7.0 ACTION SUGGESTED > 7.0 Performed By: #### B LDCX1 #### [facility] [address] [address] [address] Celina Venegas Glucose [Mass/Vol] 117 mg/dL Normal [facility] Comment on above: Performed By: #### B LDCX1 #### [facility] [address] [address] [address] Celina Venegas HbA1c (Bld) [Mass fraction] 5.7 % Normal 4.5-6.2 [facility] Comment on above: Performed By: #### B LDCX1 #### [facility] [address] [place] [address] Dr. Celina Venegas MAGNESIUMon 10-07-2022 Magnesium [Mass/Vol] 1.5 mg/dL Critically low 1.8-2.4 [facility] Comment on above: Performed By: #### M G, BNP, CMP #### [facility] [address] [place] [address] Dr. Celina Venegas POINT OF CARE GLUCOSEon 09-13 Glucose [Mass/Vol] 247 mg/dL Critically high 74-106 [facility] Comment on above: Performed By: #### M G, BNP, CMP #### [facility] [address] [place] [address] Dr. Celina Venegas Glucose [Mass/Vol] 152 mg/dL Critically high 74-106 [facility] Comment on above: Performed By: #### B LDCX1 #### [facility] [address] [place] [address] Dr. Celina Venegas PROF 14(COMP METB)on 023 Albumin [Mass/Vol] 2.5 g/dL Critically low 3.4-5.[address] [facility] Comment on above: Performed By: #### M G, BNP, CMP #### [facility] [address] [place] [address] Dr. Celina Venegas Albumin/Globulin [Mass ratio] 0.6 {ratio} Normal [facility] Comment on above: Performed By: #### M G, BNP, CMP #### [facility] [address] [place] [address] Dr. Celina Venegas ALP [Catalytic activity/Vol] 167 U/L Critically high 46-116 [facility] Comment on above: Performed By: #### M G, BNP, CMP #### [facility] [address] [address] [address] Celina Venegas ALT [Catalytic activity/Vol] 22 U/L Normal 14-59 [facility] Comment on above: Performed By: #### M G, BNP, CMP #### [facility] [address] [address] [address] Celina Venegas Anion gap [Moles/Vol] 15.1 mmol/L Normal [facility] Comment on above: Performed By: #### M G, BNP, CMP #### [facility] [address] [address] [address] Celina Venegas AST [Catalytic activity/Vol] 26 U/L Normal 15-37 [facility] Comment on above: Performed By: #### M G, BNP, CMP #### [facility] [address] [place] [address] Dr. Celina Venegas Bilirubin [Mass/Vol] 0.2 mg/dL Normal 0.2-1.0 [facility] Comment on above: Performed By: #### M G, BNP, CMP #### [facility] [address] [address] [address] Celina Venegas Calcium [Mass/Vol] 8.2 mg/dL Critically low 8.5-10.1 [facility] Comment on above: Performed By: #### M G, BNP, CMP #### [facility] [address] [address] [address] Celina Venegas Chloride [Moles/Vol] 107 mmol/L Normal 98-107 [facility] Comment on above: Performed By: #### M G, BNP, CMP #### [facility] [address] [address] [address] Celina Venegas CO2 [Moles/Vol] 23.8 mmol/L Normal 21.0-32.0 [facility] Comment on above: Performed By: #### M G, BNP, CMP #### [facility] [address] [address] [address] Celina Venegas Creatinine [Mass/Vol] 1.09 mg/dL Critically high 0.55-1.02 [facility] Comment on above: Performed By: #### M G, BNP, CMP #### [facility] [address] [address] [address] Celina Venegas EGFR-AF MONTENEGRIN >60 Normal >=60 [facility] Comment on above: Performed By: #### M G, BNP, CMP #### [facility] [address] [place] [address] Dr. Celina Venegas EGFR-NON AF MONTENEGRIN 53 mL/min/1.73m2 Critically low >=60 [facility] Comment on above: Performed By: #### M G, BNP, CMP #### [facility] [address] [place] [address] Dr. Celina Venegas Globulin (S) [Mass/Vol] 3.9 g/dL Normal [facility] Comment on above: Performed By: #### M G, BNP, CMP #### [facility] [address] [place] [address] Dr. Celina Venegas Glucose [Mass/Vol] 244 mg/dL Critically high 74-106 [facility] Comment on above: Performed By: #### M G, BNP, CMP #### [facility] [address] [place] [address] Dr. Celina Venegas Potassium [Moles/Vol] 3.9 mmol/L Normal 3.5-5.1 [facility] Comment on above: Performed By: #### M G, BNP, CMP #### [facility] [address] [place] [address] Dr. Celina Venegas Protein [Mass/Vol] 6.4 g/dL Normal 6.4-8.2 [facility] Comment on above: Performed By: #### M G, BNP, CMP #### [facility] [address] [place] [address] Dr. Celina Venegas Sodium [Moles/Vol] 142 mmol/L Normal 136-145 [facility] Comment on above: Performed By: #### M G, BNP, CMP #### [facility] [address] [place] [address] Dr. Celina Venegas Urea nitrogen [Mass/Vol] 18.0 mg/dL Normal 7.0-18.0 [facility] Comment on above: Performed By: #### M G, BNP, CMP #### [facility] [address] [address] [address] Celina Venegas Urea nitrogen/Creatinine [Mass ratio] 16.5 mg/mg Normal [facility] Comment on above: Performed By: #### M G, BNP, CMP #### [facility] [address] [address] [address] Celina Venegas PROTIMEon 10-07-2022 INR Coag (PPP) [Relative time] 1.00 {INR} Normal [facility] Comment on above: Performed By: #### B [id number] #### [facility] [address] [place] [address] Dr. Celina Venegas INR GUIDELINES SEE BELOW Normal [facility] Comment on above: Result Comment: CAESAR RED INR: 2.0 - 3.0 CONDITIONS NOT LISTED BELOW 2.5 - 3.5 FOR PROSTHETIC HEART VALVE REPLACEMENT 2.5 - 3.5 RECURRENT THROMBOSIS Performed By: #### B [id number] #### [facility] [address] [place] [address] Dr. Celina Venegas PT Coag (PPP) [Time] 10.6 s Normal 9.0-11.6 [facility] Comment on above: Performed By: #### B [id number] #### [facility] [address] [place] [address] Dr. Celina Venegas INR Coag (PPP) [Relative time] 1.01 {INR} Normal [facility] Comment on above: Performed By: #### M G, BNP, CMP #### [facility] [address] [place] [address] Dr. Celina Venegas INR GUIDELINES SEE BELOW Normal [facility] Comment on above: Result Comment: CAESAR RED INR: 2.0 - 3.0 CONDITIONS NOT LISTED BELOW 2.5 - 3.5 FOR PROSTHETIC HEART VALVE REPLACEMENT 2.5 - 3.5 RECURRENT THROMBOSIS Performed By: #### M G, BNP, CMP #### [facility] [address] [place] [address] Dr. Celina Venegas PT Coag (PPP) [Time] 10.7 s Normal 9.0-11.6 [facility] Comment on above: Performed By: #### M G, BNP, CMP #### [facility] [address] [place] [address] Dr. Celina Venegas PTTon 10-07-2022 aPTT Coag (Bld) [Time] 20.4 s Critically low 22.3-36.2 [facility] Comment on above: Performed By: #### B [id number] #### [facility] [address] [place] [address] Dr. Celina Venegas aPTT Coag (Bld) [Time] 25.2 s Normal 22.3-36.2 [facility] Comment on above: Performed By: #### M G, BNP, CMP #### [facility] [address] [place] [address] Dr. Celina Venegas T4on 10-07-2022 T4 [Mass/Vol] 10.20 ug/dL Normal 4.80-13.90 [facility] Comment on above: Performed By: #### B [id number] #### [facility] [address] [place] [address] Dr. Celina Venegas TROPONIN, HIGH SENSITIVITYon 10-07-2022 HSTROP 279.6 pg/mL Critically high 4.0-51.3 [facility] Comment on above: Result Comment: CUT- OFF POINTS HAVE BEEN ESTABLISHED BASED ON THE FOURTH UNIVERSAL DEFINITIONS OF MYOCARDIAL INFARCTION. THE UPPER REFERENCE LIMIT (URL) OF TROPONIN, DEFINED THE 99TH PERCENTILE OF cTnI DISTRIBUTION IN A REFERENCE POPULATION, HAS BEEN CONFIRMED THE DECISION THRESHOLD FOR IA DIAGNOSIS. Performed By: #### M G, BNP, CMP #### [facility] [address] [place] [address] Dr. Celina Venegas HSTROP 336.1 pg/mL Critically high 4.0-51.3 [facility] Comment on above: Result Comment: CUT- OFF POINTS HAVE BEEN ESTABLISHED BASED ON THE FOURTH UNIVERSAL DEFINITIONS OF MYOCARDIAL INFARCTION. THE UPPER REFERENCE LIMIT (URL) OF TROPONIN, DEFINED THE 99TH PERCENTILE OF cTnI DISTRIBUTION IN A REFERENCE POPULATION, HAS BEEN CONFIRMED THE DECISION THRESHOLD FOR IA DIAGNOSIS. Performed By: #### M G, BNP, CMP #### [facility] [address] [place], [place] [address] Dr. Celina Venegas TSHon 10-07-2022 TSH Qn m[IU]/L Critically low 0.358-3.740 [facility] Comment on above: Performed By: #### M G, BNP, CMP #### [facility] [address] [place], [place] [address] Dr. Celina Venegas XR CHEST 1 Von 10-07-2022 XR CHEST 1 V EXAM: XR CHEST 1 V HISTORY: SHORTNESS OF BREATH COMPARISON: 10/07/2022 TECHNIQUE: AP view of the chest. Findings/impression: Decreasing bibasilar airspace disease. Stable cardiac silhouette. No pneumothorax. Trace bilateral pleural effusions. Stable ET and NG tubes. Electronically authenticated by: LOUISE POLLOCK Date: 2022-10-07 09:31 Normal [facility] XR CHEST 1 V EXAM: XR CHEST [...] by: EMILE DOWNS Date: 2022-10-07 05:44 Normal [facility] XR KUB 1 VIEWon 10-07-2022 XR KUB [...] Juaquin COLEMAN Date: 2022-10-06 23:40 Normal [facility] ACETAMINOPHENon 10-06-2022 Acetaminophen [Mass/Vol] ug/mL Critically low 10.0-30.0 [facility] Comment on above: Performed By: #### H STROPN #### [facility] [address] [place] [address] Dr. Celina Venegas ACETONE SERUMon 10-06-2022 ACETONE Negative Normal NEGATIVE [facility] Comment on above: Performed By: #### B [id number] #### [facility] [address] [place] [address] Dr. Celina Venegas BLOOD GASES BTYon 10-06-2022 02 MODE VENTILATOR Normal [facility] Comment on above: Performed By: #### M G, BNP, CMP #### [facility] [address] [place] [address] Dr. Celina Venegas Performed By: #### A BG #### [facility] [address] [place] [address] Dr. Celina Venegas ALLENS TEST Positive Normal [facility] Comment on above: Performed By: #### M G, BNP, CMP #### [facility] [address] [place] [address] Dr. Celina Venegas Performed By: #### A BG #### [facility] [address] [place] [address] Dr. Celina Venegas Base excess Calc (Bld) [Moles/Vol] -8.9000 mmol/L Critically low -2.0-2.0 [facility] Comment on above: Performed By: #### A BG #### [facility] [address] [place] [address] Dr. Celina Venegas BIPAP PRESSURE Normal [facility] Comment on above: Performed By: #### M G, BNP, CMP #### [facility] [address] [place] [address] Dr. Celina Venegas Performed By: #### A BG #### [facility] [address] [place] [address] Dr. Celina Venegas CPAP Normal [facility] Comment on above: Performed By: #### M G, BNP, CMP #### [facility] [address] [place] [address] Dr. Celina Venegas Performed By: #### A BG #### [facility] [address] [place] [address] Dr. Celina Venegas FIO2 40.00 % Normal [facility] Comment on above: Performed By: #### M G, BNP, CMP #### [facility] [address] [place] [address] Dr. Celina Venegas Performed By: #### A BG #### [facility] [address] [place] [address] Dr. Celina Venegas HCO3 (Bld) [Moles/Vol] 19.3 mmol/L Critically low 22.0-26.0 [facility] Comment on above: Performed By: #### A BG #### [facility] [address] [place] [address] Dr. Celina Venegas LPM [facility] Comment on above: Performed By: #### M G, BNP, CMP #### [facility] [address] [place] [address] Dr. Celina Venegas Performed By: #### A BG #### [facility] [address] [place] [address] Dr. Celina Venegsa MINUTE VOLUME Normal [facility] Comment on above: Performed By: #### M G, BNP, CMP #### [facility] [address] [place] [address] Dr. Celina Venegas Performed By: #### A BG #### [facility] [address] [place] [address] Dr. Celina Venegas Oxygen (Bld) [Partial pressure] 97.4 mm[Hg] Normal 80.0-100.0 [facility] Comment on above: Performed By: #### A BG #### [facility] [address] [place] [address] Dr. Celina Venegas Oxygen saturation in Blood 96.1 % Normal 95.0-100.0 [facility] Comment on above: Performed By: #### A BG #### [facility] [address] [place] [address] Dr. Celina Venegas PCO2 50.2 mmHg Critically high 35.0-45.0 [facility] Comment on above: Performed By: #### A BG #### [facility] [address] [place] [address] Dr. Celina Venegas PEEP 5 [facility] Comment on above: Performed By: #### M G, BNP, CMP #### [facility] [address] [place] [address] Dr. Celina Venegas Performed By: #### A BG #### [facility] [address] [place] [address] Dr. Celina Venegas pH (Bld) 7.193 [pH] Critically low 7.350-7.450 [facility] Comment on above: Performed By: #### A BG #### [facility] [address] [place] [address] Dr. Celian Venegas [facility] Comment on above: Performed By: #### M G, BNP, CMP #### [facility] [address] [place] [address] Dr. Celina Venegas Performed By: #### A BG #### [facility] [address] [place] [address] Dr. Celina Venegas [facility] Comment on above: Performed By: #### M G, BNP, CMP #### [facility] [address] [place] [address] Dr. Celina Venegas Performed By: #### A BG #### [facility] [address] [place] [address] Dr. Celina Venegas PUNCTURE SITE RR [facility] Comment on above: Performed By: #### M G, BNP, CMP #### [facility] [address] [place] [address] Dr. Celina Venegas Performed By: #### A BG #### [facility] [address] [place] [address] Dr. Celina Venegas RATE 16 bpm Normal [facility] Comment on above: Performed By: #### M G, BNP, CMP #### [facility] [address] [place] [address] Dr. Celina Venegas Performed By: #### A BG #### [facility] [address] [place] [address] Dr. Celina Venegas VENT MODE A/C Normal [facility] Comment on above: Performed By: #### M G, BNP, CMP #### [facility] [address] [address] [address] Celina Venegas Performed By: #### A BG #### [facility] [address] [place] [address] Dr. Celina Venegas VT 400 ML Normal [facility] Comment on above: Performed By: #### M G, BNP, CMP #### [facility] [address] [place] [address] Dr. Celina Venegas Performed By: #### A BG #### [facility] [address] [place] [address] Dr. Celina Venegas BNPon 10-06-2022 Natriuretic peptide B (Bld) [Mass/Vol] 3590.0 pg/mL Critically high <=900.0 [facility] Comment on above: Performed By: #### C BC #### [facility] [address] [place] [address] Dr. Celina Venegas CBC AUTO DIFFon 10-06-2022 BASO # 0.1 103/ul Normal 0.0-0.1 [facility] Comment on above: Performed By: #### P REG #### [facility] [address] [place] [address] Dr. Celina Venegas Basophils/100 WBC (Bld) 0.4 % Normal 0.2-2.0 [facility] Comment on above: Performed By: #### P REG #### [facility] [address] [place] [address] Dr. Celina Venegas EO # 0.2 103/ul Normal 0.0-0.7 [facility] Comment on above: Performed By: #### P REG #### [facility] [address] [address] [address] Celina Venegas Eosinophils/100 WBC (Bld) 1.1 % Normal 0.9-7.0 [facility] Comment on above: Performed By: #### P REG #### [facility] [address] [address] [address] Celina Venegas Erythrocyte distribution width (RBC) [Ratio] 14.5 % Normal 11.0-15.0 [facility] Comment on above: Performed By: #### P REG #### [facility] [address] [place] [address] Dr. Celina Venegas Hematocrit (Bld) [Volume fraction] 38.1 % Normal 36.0-48.0 [facility] Comment on above: Performed By: #### P REG #### [facility] [address] [place] [address] Dr. Celina Venegas Hemoglobin (Bld) [Mass/Vol] 11.3 g/dL Critically low 12.0-16.0 [facility] Comment on above: Performed By: #### P REG #### [facility] [address] [place] [address] Dr. Celina Venegas IG # 0.21 10e3/ul Critically high 0.00-0.03 [facility] Comment on above: Performed By: #### P REG #### [facility] [address] [place] [address] Dr. Celina Venegas IG % 1.5 % Critically high 0.0-0.5 [facility] Comment on above: Performed By: #### P REG #### [facility] [address] [address] [address] Celina Venegas LYMPH # 3.3 103/ul Normal 1.2-3.8 [facility] Comment on above: Performed By: #### P REG #### [facility] [address] [place] [address] Dr. Celina Venegas Lymphocytes/100 WBC (Bld) 23.8 % Normal 20.5-60.0 [facility] Comment on above: Performed By: #### P REG #### [facility] [address] [address] [address] Celina Venegas MANUAL DIFF REQ NO Normal [facility] Comment on above: Performed By: #### P REG #### [facility] [address] [address] [address] Celina Venegas MCH (RBC) [Entitic mass] 24.9 pg Critically low 26.7-34.0 [facility] Comment on above: Performed By: #### P REG #### [facility] [address] [address] [address] Celina Venegas MCHC (RBC) [Mass/Vol] 29.7 g/dL Critically low 29.9-35.2 [facility] Comment on above: Performed By: #### P REG #### [facility] [address] [place] [address] Dr. Celina Venegas MCV (RBC) [Entitic vol] 83.9 fL Normal 81.0-99.0 [facility] Comment on above: Performed By: #### P REG #### [facility] [address] [address] [address] Celina Venegas MONO # 0.5 103/ul Normal 0.3-0.8 [facility] Comment on above: Performed By: #### P REG #### [facility] [address] [place] [address] Dr. Celina Venegas Monocytes/100 WBC (Bld) 3.8 % Normal 1.7-12.0 [facility] Comment on above: Performed By: #### P REG #### [facility] [address] [place] [address] Dr. Celina Venegas NEUT # 9.6 103/ul Critically high 1.4-6.5 [facility] Comment on above: Performed By: #### P REG #### [facility] [address] [place] [address] Dr. Celina Venegas Neutrophils/100 WBC (Bld) 69.4 % Normal 43.0-75.0 [facility] Comment on above: Performed By: #### P REG #### [facility] [address] [address] [address] Celina Venegas Platelet mean volume (Bld) [Entitic vol] 10.4 fL Normal 9.5-13.5 [facility] Comment on above: Performed By: #### P REG #### [facility] [address] [address] [address] Celina Venegas PLT 409 103/ul Normal 150-450 [facility] Comment on above: Performed By: #### P REG #### [facility] [address] [address] [address] Celina Venegas RBC 4.54 106/ul Normal 4.20-5.40 [facility] Comment on above: Performed By: #### P REG #### [facility] [address] [place] [address] Dr. Celina Venegas WBC 13.8 103/ul Critically high 4.0-11.0 [facility] Comment on above: Performed By: #### P REG #### [facility] [address] [place] [address] ABD/PELV W CONon 10-07-19 CT ABD/PELV W CON CT SCAN OF [...] by: Ju RIVERA Date: 2022-10-06 21:[address] [facility] [address] ABD/PELVIS WO CONon 10-06 CT ABD/PELVIS [...] by: LISSA ARTEAGA Date: 2022-10-06 21:51 Normal [facility] CULTURE BLOODon 10-06-2022 Microscopic examination of blood, culture Culture Observations: NO GROWTH AT 5 DAYS. Normal [facility] Comment on above: Performed By: #### H STROPN #### [facility] [address] [place] [address] Dr. Celina Venegas Performed By: #### B [id number] #### [facility] [address] [place] [address] Dr. Celina Venegas [facility] SARS-CoV-2 (COVID-19) RNA ELVA+probe Ql (Unsp spec) Not detected Normal NOT DETECTED [facility] Comment on above: Performed By: #### P REG #### [facility] [address] [place] [address] Dr. eClina Venegas DRUG SCREEN RAPID (URINE)on 10-06-2022 AMP Negative Normal NEGATIVE [facility] Comment on above: Performed By: #### M G, BNP, CMP #### [facility] [address] [place] [address] Dr. Celina Venegas BAR Negative Normal NEGATIVE [facility] Comment on above: Performed By: #### M G, BNP, CMP #### [facility] [address] [place] [address] Dr. Celina Venegas BUP Negative Normal NEGATIVE [facility] Comment on above: Performed By: #### M G, BNP, CMP #### [facility] [address] [place], [place] [id number] Dr. Celina Venegas BZO Negative Normal NEGATIVE [facility] Comment on above: Performed By: #### M G, BNP, CMP #### [facility] [address] [place] [address] Dr. Celina Venegas BRIANDA Negative Normal NEGATIVE [facility] Comment on above: Performed By: #### M G, BNP, CMP #### [facility] [address] [place] [address] Dr. Celina Venegas CUT-OFFS SEE BELOW Normal [facility] Comment on above: Result Comment: AMP (Amphetamine): [...] By: #### M G, BNP, CMP #### [facility] [address] [place] [address] Dr. Celina Venegas DRUG CUT HEADER DRUG CLASS TEST SYST EM CUT-OFF CONCENTRATIONS ARE FOLLOWS: Normal [facility] Comment on above: Performed By: #### M G, BNP, CMP #### [facility] [address] [place] [address] Dr. Celina Venegas mAMP Negative Normal NEGATIVE [facility] Comment on above: Performed By: #### M G, BNP, CMP #### [facility] [address] [place] [address] Dr. Celina Venegas MTD Negative Normal NEGATIVE [facility] Comment on above: Performed By: #### M G, BNP, CMP #### [facility] [address] [place] [address] Dr. Celina Venegas OPI Negative Normal NEGATIVE [facility] Comment on above: Performed By: #### M G, BNP, CMP #### [facility] [address] [address] [address] Celina Venegas OXY Negative Normal NEGATIVE [facility] Comment on above: Performed By: #### M G, BNP, CMP #### [facility] [address] [address] [address] Celina Venegas PCP Negative Normal NEGATIVE [facility] Comment on above: Performed By: #### M G, BNP, CMP #### [facility] [address] [place] [address] Dr. Celina Venegas PPX Negative Normal NEGATIVE [facility] Comment on above: Performed By: #### M G, BNP, CMP #### [facility] [address] [place] [address] Dr. Celina Venegas TCA Negative Normal NEGATIVE [facility] Comment on above: Performed By: #### M G, BNP, CMP #### [facility] [address] [place] [address] Dr. Celina Venegas THC Positive Abnormal NEGATIVE [facility] Comment on above: Performed By: #### M G, BNP, CMP #### [facility] [address] [place] [address] Dr. Celina Venegas ETHANOL (BLD ALC)on 10-07-19 ALC NOTE NOTE: 80 mg/dl is th e legal limit for a blood alcohol level Normal [facility] Comment on above: Performed By: #### B LDCX2 #### [facility] [address] [place] [address] Dr. Celina Venegas Ethanol [Mass/Vol] mg/dL Normal [facility] Comment on above: Performed By: #### B LDCX2 #### [facility] [address] [place] [address] Dr. Celina Venegas LACTATE/LACTIC ACIDon 2022 Lactate [Moles/Vol] 2.2 mmol/L Critically high 0.4-2.0 [facility] Comment on above: Performed By: #### B LDCX2 #### [facility] [address] [place] [address] Dr. Celina Venegas Lactate [Moles/Vol] 5.5 mmol/L Critically high 0.4-2.0 [facility] Comment on above: Performed By: #### M G, BNP, CMP #### [facility] [address] [address] [address] Celina Venegas LIVER PROFILEon 10-06-2022 Albumin [Mass/Vol] 2.8 g/dL Critically low 3.4-5.[address] [facility] Comment on above: Performed By: #### M G, BNP, CMP #### [facility] [address] [address] [address] Celina Venegas Albumin/Globulin [Mass ratio] 0.6 {ratio} Normal [facility] Comment on above: Performed By: #### M G, BNP, CMP #### [facility] [address] [place] [address] Dr. Celina Venegas ALP [Catalytic activity/Vol] 218 U/L Critically high 46-116 [facility] Comment on above: Performed By: #### M G, BNP, CMP #### [facility] [address] [place] [address] Dr. Celina Venegas ALT [Catalytic activity/Vol] 22 U/L Normal 14-59 [facility] Comment on above: Performed By: #### M G, BNP, CMP #### [facility] [address] [place] [address] Dr. Celina Venegas AST [Catalytic activity/Vol] 27 U/L Normal 15-37 [facility] Comment on above: Performed By: #### M G, BNP, CMP #### [facility] [address] [place] [address] Dr. Celina Venegas BILI, CONJUGATED 0.1 mg/dL Normal 0.0-0.2 [facility] Comment on above: Performed By: #### M G, BNP, CMP #### [facility] [address] [place] [address] Dr. Celina Venegas Bilirubin [Mass/Vol] 0.2 mg/dL Normal 0.2-1.0 [facility] Comment on above: Performed By: #### M G, BNP, CMP #### [facility] [address] [address] [address] Celina Venegas Globulin (S) [Mass/Vol] 4.6 g/dL Normal [facility] Comment on above: Performed By: #### M G, BNP, CMP #### [facility] [address] [address] [address] Celina Venegas Protein [Mass/Vol] 7.4 g/dL Normal 6.4-8.2 [facility] Comment on above: Performed By: #### M G, BNP, CMP #### [facility] [address] [address] [address] Celina Venegas PROF CHEM 8 (BAS METB)on Anion gap [Moles/Vol] 20.6 mmol/L Normal [facility] Comment on above: Performed By: #### C BC #### [facility] [address] [place] [address] Dr. Celina Venegas Calcium [Mass/Vol] 8.4 mg/dL Critically low 8.5-10.1 [facility] Comment on above: Performed By: #### C BC #### [facility] [address] [place] [address] Dr. Celina Venegas Chloride [Moles/Vol] 107 mmol/L Normal 98-107 [facility] Comment on above: Performed By: #### C BC #### [facility] [address] [place] [address] Dr. Celina Venegas CO2 [Moles/Vol] 19.5 mmol/L Critically low 21.0-32.0 [facility] Comment on above: Performed By: #### C BC #### [facility] [address] [place] [address] Dr. Celina Venegas Creatinine [Mass/Vol] 1.39 mg/dL Critically high 0.55-1.02 [facility] Comment on above: Performed By: #### C BC #### [facility] [address] [place] [address] Dr. Celina Venegas EGFR-AF MONTENEGRIN 48 mL/min/1.73m2 Critically low >=60 [facility] Comment on above: Performed By: #### C BC #### [facility] [address] [address] [address] Celina Venegas EGFR-NON AF MONTENEGRIN 40 mL/min/1.73m2 Critically low >=60 [facility] Comment on above: Performed By: #### C BC #### [facility] [address] [address] [address] Celina Venegas Glucose [Mass/Vol] 322 mg/dL Critically high 74-106 [facility] Comment on above: Performed By: #### C BC #### [facility] [address] [address] [address] Celina Venegas Potassium [Moles/Vol] 3.1 mmol/L Critically low 3.5-5.1 [facility] Comment on above: Performed By: #### C BC #### [facility] [address] [address] [address] Celina Venegas Sodium [Moles/Vol] 144 mmol/L Normal 136-145 [facility] Comment on above: Performed By: #### C BC #### [facility] [address] [address] [address] Celina Venegas Urea nitrogen [Mass/Vol] 22.0 mg/dL Critically high 7.0-18.0 [facility] Comment on above: Performed By: #### C BC #### [facility] [address] [address] [address] Celina Venegas Urea nitrogen/Creatinine [Mass ratio] 15.8 mg/mg Normal [facility] Comment on above: Performed By: #### C BC #### [facility] [address] [address] [address] Celina Venegas SALICYLATEon 10-06-2022 SALICYLATE <2.8 Normal <=19.9 [facility] Comment on above: Performed By: #### H STROPN #### [facility] [address] [address] [address] Celina Venegas SYMPTOMATIC COVID-19 ANTIGEN on 10-06-2022 EUA Statement SEE BELOW Normal [facility] Comment on above: Result Comment: This test [...] By: #### M G, BNP, CMP #### [facility] [address] [place] [address] Dr. Celina Venegas SARS-CoV-2 (COVID-19) RNA ELVA+probe Ql (Unsp spec) Negative Normal NEGATIVE [facility] Comment on above: Performed By: #### M G, BNP, CMP #### [facility] [address] [address] [address] Celina Venegas TROPONIN, HIGH SENSITIVITYon 10-06-2022 HSTROP 288.7 pg/mL Critically high 4.0-51.3 [facility] Comment on above: Result Comment: CUT- OFF POINTS HAVE BEEN ESTABLISHED BASED ON THE FOURTH UNIVERSAL DEFINITIONS OF MYOCARDIAL INFARCTION. THE UPPER REFERENCE LIMIT (URL) OF TROPONIN, DEFINED THE 99TH PERCENTILE OF cTnI DISTRIBUTION IN A REFERENCE POPULATION, HAS BEEN CONFIRMED THE DECISION THRESHOLD FOR IA DIAGNOSIS. Performed By: #### H STROPN #### [facility] [address] [address] [address] Celina Venegas HSTROP 109.5 pg/mL Critically high 4.0-51.3 [facility] Comment on above: Result Comment: CUT- OFF POINTS HAVE BEEN ESTABLISHED BASED ON THE FOURTH UNIVERSAL DEFINITIONS OF MYOCARDIAL INFARCTION. THE UPPER REFERENCE LIMIT (URL) OF TROPONIN, DEFINED THE 99TH PERCENTILE OF cTnI DISTRIBUTION IN A REFERENCE POPULATION, HAS BEEN CONFIRMED THE DECISION THRESHOLD FOR IA DIAGNOSIS. Performed By: #### C BC #### [facility] [address] [address] [address] Celina Venegas XR CHEST 1 Von [...] by: GABRIELLA TESFAYE Date: 2022-10-06 18:46 Normal [facility] XR CHEST 1 V EXAM: XR CHEST [...] JUAN LUIS LOVE Date: 2022-10-06 18:22 Normal [facility] GGTon 09-22-2022 Gamma glutamyl transferase [Catalytic activity/Vol] 80 U/L Critically high 8-55 [facility] Comment on above: Performed By: #### H STROPN #### [facility] [address] [address] [address] Celina Venegas LIPID PROFILEon 09-22-2022 CHOL-HDL RATIO NORM SEE BELOW Normal [facility] Comment on above: Result Comment: 3.3 - 4.4 LOW RISK 4.4 - 7.1 AVERAGE RISK 7.1 - 11.0 MODERATE RISK >11.0 HIGH RISK Performed By: #### H STROPN #### [facility] [address] [address] [address] Celina Venegas Cholesterol [Mass/Vol] 162 mg/dL Normal <=200 [facility] Comment on above: Performed By: #### H STROPN #### [facility] [address] [address] [address] Celina Venegas Cholesterol in HDL [Mass/Vol] 41 mg/dL Normal 40-60 [facility] Comment on above: Performed By: #### H STROPN #### [facility] [address] [address] [address] Celina Venegas Cholesterol in LDL [Mass/Vol] 90.8 mg/dL Normal [facility] Comment on above: Performed By: #### H STROPN #### [facility] [address] [address] [address] Celina Venegas Cholesterol.total/Ch olesterol in HDL [Mass ratio] 4.0 {ratio} Normal [facility] Comment on above: Performed By: #### H STROPN #### [facility] [address] [address] [address] Celina Venegas HDL NORMAL > or = 60 mg/dl - LO W CARDIOVASCULAR RISK <40 mg/dl - HIGH CARDIOVASCULAR RISK Normal [facility] Comment on above: Performed By: #### H STROPN #### [facility] [address] [address] [address] Celina Venegas LDL CALC NORMAL SEE BELOW Normal [facility] Comment on above: Result Comment: <100 mg/dl OPTIMAL 100 - 129 mg/dl NEAR OR ABOVE OPTIMAL 130 - 159 mg/dl BORDERLINE HIGH 160 - 189 mg/dl HIGH >190 mg/dl VERY HIGH Performed By: #### H STROPN #### [facility] [address] [address] [address] Celina Venegas Triglyceride [Mass/Vol] 151 mg/dL Critically high <=150 [facility] Comment on above: Performed By: #### H STROPN #### [facility] [address] [address] [address] Celina Venegas VLDL CALC 30.2 mg/dL Normal [facility] Comment on above: Performed By: #### H STROPN #### [facility] [address] [address] [address] Celina Venegas XR CHEST 2 Von [...] THADDEUS LO Date: 2022-09-22 10:58 Normal [facility] STOOL CULTUREon 09-11-2022 Campylobacter Culture Final report Normal [facility] Comment on above: Performed By: #### M G, BNP, CMP #### [facility] [address] [address] [address] Celina Venegas E coli Shiga Toxin EIA Negative Normal Negative [facility] Comment on above: Performed By: #### M G, BNP, CMP #### [facility] [address] [address] [address] Celina Venegas Result 1 Comment Normal [facility] Comment on above: Result Comment: No S almonella or Shigella recovered. Performed By: #### M G, BNP, CMP #### [facility] [address] [address] [address] Celina Venegas Result Comment: No C ampylobacter species isolated. Salmonella/Shigella Screen Final report Normal [facility] Comment on above: Performed By: #### M G, BNP, CMP #### [facility] [address] [address] [address] Celina Venegas CBC AUTO DIFFon 09-08-2022 BASO # 0.0 103/ul Normal 0.0-0.1 [facility] Comment on above: Performed By: #### M G, BNP, CMP #### [facility] [address] [address] [address] Celina Venegas Basophils/100 WBC (Bld) 0.1 % Critically low 0.2-2.0 [facility] Comment on above: Performed By: #### M G, BNP, CMP #### [facility] [address] [place] [address] Dr. Celina Venegas EO # 0.3 103/ul Normal 0.0-0.7 [facility] Comment on above: Performed By: #### M G, BNP, CMP #### [facility] [address] [place] [address] Dr. Celina Venegas Eosinophils/100 WBC (Bld) 3.6 % Normal 0.9-7.0 [facility] Comment on above: Performed By: #### M G, BNP, CMP #### [facility] [address] [place] [address] Dr. Celina Venegas Erythrocyte distribution width (RBC) [Ratio] 13.9 % Normal 11.0-15.0 [facility] Comment on above: Performed By: #### M G, BNP, CMP #### [facility] [address] [place] [address] Dr. Celina Venegas Hematocrit (Bld) [Volume fraction] 28.9 % Critically low 36.0-48.0 [facility] Comment on above: Performed By: #### M G, BNP, CMP #### [facility] [address] [place] [address] Dr. Celina Venegas Hemoglobin (Bld) [Mass/Vol] 8.8 g/dL Critically low 12.0-16.0 [facility] Comment on above: Performed By: #### M G, BNP, CMP #### [facility] [address] [place] [address] Dr. Celina Venegas IG # 0.03 10e3/ul Normal 0.00-0.03 [facility] Comment on above: Performed By: #### M G, BNP, CMP #### [facility] [address] [place] [address] Dr. Celina Venegas IG % 0.4 % Normal 0.0-0.5 [facility] Comment on above: Performed By: #### M G, BNP, CMP #### [facility] [address] [address] [address] Celina Venegas LYMPH # 0.8 103/ul Critically low 1.2-3.8 [facility] Comment on above: Performed By: #### M G, BNP, CMP #### [facility] [address] [address] [address] Celina Venegas Lymphocytes/100 WBC (Bld) 10.5 % Critically low 20.5-60.0 [facility] Comment on above: Performed By: #### M G, BNP, CMP #### [facility] [address] [address] [address] Celina Venegas MANUAL DIFF REQ NO Normal [facility] Comment on above: Performed By: #### M G, BNP, CMP #### [facility] [address] [place] [address] Dr. Celina Venegas MCH (RBC) [Entitic mass] 24.9 pg Critically low 26.7-34.0 [facility] Comment on above: Performed By: #### M G, BNP, CMP #### [facility] [address] [place] [address] Dr. Celina Veengas MCHC (RBC) [Mass/Vol] 30.4 g/dL Normal 29.9-35.2 [facility] Comment on above: Performed By: #### M G, BNP, CMP #### [facility] [address] [address] [address] Celina Venegas MCV (RBC) [Entitic vol] 81.9 fL Normal 81.0-99.0 [facility] Comment on above: Performed By: #### M G, BNP, CMP #### [facility] [address] [address] [address] Celina Venegas MONO # 0.6 103/ul Normal 0.3-0.8 [facility] Comment on above: Performed By: #### M G, BNP, CMP #### [facility] [address] [place] [address] Dr. Celina Venegas Monocytes/100 WBC (Bld) 7.8 % Normal 1.7-12.0 [facility] Comment on above: Performed By: #### M G, BNP, CMP #### [facility] [address] [place] [address] Dr. Celina Venegas NEUT # 5.5 103/ul Normal 1.4-6.5 [facility] Comment on above: Performed By: #### M G, BNP, CMP #### [facility] [address] [place] [address] Dr. Celina Venegas Neutrophils/100 WBC (Bld) 77.6 % Critically high 43.0-75.0 [facility] Comment on above: Performed By: #### M G, BNP, CMP #### [facility] [address] [place] [address] Dr. Celina Venegas Platelet mean volume (Bld) [Entitic vol] 10.8 fL Normal 9.5-13.5 [facility] Comment on above: Performed By: #### M G, BNP, CMP #### [facility] [address] [place] [address] Dr. Celina Venegas PLT 256 103/ul Normal 150-450 [facility] Comment on above: Performed By: #### M G, BNP, CMP #### [facility] [address] [place] [address] Dr. Celina Venegas RBC 3.53 106/ul Critically low 4.20-5.40 [facility] Comment on above: Performed By: #### M G, BNP, CMP #### [facility] [address] [place] [address] Dr. Celina Venegas WBC 7.1 103/ul Normal 4.0-11.0 [facility] Comment on above: Performed By: #### M G, BNP, CMP #### [facility] [address] [place] [address] Dr. Celina Venegas Consultation Noteon 09-09-19 Consultation Note [id number] Normal [facility] MAGNESIUMon 09-08-2022 Magnesium [Mass/Vol] 1.1 mg/dL Critically low 1.8-2.4 [facility] Comment on above: Performed By: #### B LDCX1 #### [facility] [address] [place] [address] Dr. Celina Venegas PROF CHEM 8 (BAS METB)on Anion gap [Moles/Vol] 13.5 mmol/L Normal [facility] Comment on above: Performed By: #### B LDCX1 #### [facility] [address] [place] [address] Dr. Celina Venegas Calcium [Mass/Vol] 8.7 mg/dL Normal 8.5-10.1 [facility] Comment on above: Performed By: #### B LDCX1 #### [facility] [address] [place] [address] Dr. Celina Venegas Chloride [Moles/Vol] 108 mmol/L Critically high 98-107 [facility] Comment on above: Performed By: #### B [id number] #### [facility] [address] [place] [address] Dr. Celina Venegas CO2 [Moles/Vol] 22.5 mmol/L Normal 21.0-32.0 [facility] Comment on above: Performed By: #### B LDCX1 #### [facility] [address] [place] [address] Dr. Celina Venegas Creatinine [Mass/Vol] 0.65 mg/dL Normal 0.55-1.02 [facility] Comment on above: Performed By: #### B LDCX1 #### [facility] [address] [place] [address] Dr. Celina Venegas EGFR-AF MONTENEGRIN >60 Normal >=60 [facility] Comment on above: Performed By: #### B [id number] #### [facility] [address] [place] [address] Dr. Celina Venegas EGFR-NON AF MONTENEGRIN >60 Normal >=60 [facility] Comment on above: Performed By: #### B [id number] #### [facility] [address] [place] [address] Dr. Celina Venegas Glucose [Mass/Vol] 98 mg/dL Normal 74-106 [facility] Comment on above: Performed By: #### B LDCX1 #### [facility] [address] [place] [address] Dr. Celina Venegas Potassium [Moles/Vol] 3.0 mmol/L Critically low 3.5-5.1 [facility] Comment on above: Performed By: #### B [id number] #### [facility] [address] [place] [address] Dr. Celina Venegas Sodium [Moles/Vol] 141 mmol/L Normal 136-145 [facility] Comment on above: Performed By: #### B [id number] #### [facility] [address] [place] [address] Dr. Celina Venegas Urea nitrogen [Mass/Vol] 14.0 mg/dL Normal 7.0-18.0 [facility] Comment on above: Performed By: #### B [id number] #### [facility] [address] [place] [address] Dr. Celina Venegas Urea nitrogen/Creatinine [Mass ratio] 21.5 mg/mg Normal [facility] Comment on above: Performed By: #### B [id number] #### [facility] [address] [place] [address] Dr. Celina Venegas CBC AUTO DIFFon 09-07-2022 BASO # 0.0 103/ul Normal 0.0-0.1 [facility] Comment on above: Performed By: #### B LDCX2 #### [facility] [address] [place] [address] Dr. Celina Venegas Basophils/100 WBC (Bld) 0.2 % Normal 0.2-2.0 [facility] Comment on above: Performed By: #### B LDCX2 #### [facility] [address] [place] [address] Dr. Celina Venegas EO # 0.1 103/ul Normal 0.0-0.7 [facility] Comment on above: Performed By: #### B LDCX2 #### [facility] [address] [place] [address] Dr. Celina Venegas Eosinophils/100 WBC (Bld) 0.9 % Normal 0.9-7.0 [facility] Comment on above: Performed By: #### B LDCX2 #### [facility] [address] [place] [address] Dr. Celina Venegas Erythrocyte distribution width (RBC) [Ratio] 14.0 % Normal 11.0-15.0 [facility] Comment on above: Performed By: #### B LDCX2 #### [facility] [address] [place] [address] Dr. Celina Venegas Hematocrit (Bld) [Volume fraction] 31.7 % Critically low 36.0-48.0 [facility] Comment on above: Performed By: #### B LDCX2 #### [facility] [address] [place] [address] Dr. Celina Venegas Hemoglobin (Bld) [Mass/Vol] 9.2 g/dL Critically low 12.0-16.0 [facility] Comment on above: Performed By: #### B LDCX2 #### [facility] [address] [place] [address] Dr. Celina Venegas IG # 0.04 10e3/ul Critically high 0.00-0.03 [facility] Comment on above: Performed By: #### B LDCX2 #### [facility] [address] [place] [address] Dr. Celina Venegas IG % 0.4 % Normal 0.0-0.5 [facility] Comment on above: Performed By: #### B LDCX2 #### [facility] [address] [place] [address] Dr. Celina Venegas LYMPH # 0.8 103/ul Critically low 1.2-3.8 [facility] Comment on above: Performed By: #### B LDCX2 #### [facility] [address] [place] [address] Dr. Celina Venegas Lymphocytes/100 WBC (Bld) 8.7 % Critically low 20.5-60.0 [facility] Comment on above: Performed By: #### B LDCX2 #### [facility] [address] [place] [address] Dr. Celina Venegas MANUAL DIFF REQ NO Normal [facility] Comment on above: Performed By: #### B LDCX2 #### [facility] [address] [place] [address] Dr. Celina Venegas MCH (RBC) [Entitic mass] 25.7 pg Critically low 26.7-34.0 [facility] Comment on above: Performed By: #### B LDCX2 #### [facility] [address] [place] [address] Dr. Celina Venegas MCHC (RBC) [Mass/Vol] 29.0 g/dL Critically low 29.9-35.2 [facility] Comment on above: Performed By: #### B LDCX2 #### [facility] [address] [place] [address] Dr. Celina Venegas MCV (RBC) [Entitic vol] 88.5 fL Normal 81.0-99.0 [facility] Comment on above: Performed By: #### B LDCX2 #### [facility] [address] [place] [address] Dr. Celina Venegas MONO # 0.5 103/ul Normal 0.3-0.8 [facility] Comment on above: Performed By: #### B LDCX2 #### [facility] [address] [place] [address] Dr. Celina Venegas Monocytes/100 WBC (Bld) 5.2 % Normal 1.7-12.0 [facility] Comment on above: Performed By: #### B LDCX2 #### [facility] [address] [place] [address] Dr. Celina Venegas NEUT # 7.9 103/ul Critically high 1.4-6.5 [facility] Comment on above: Performed By: #### B LDCX2 #### [facility] [address] [place] [address] Dr. Celina Venegas Neutrophils/100 WBC (Bld) 84.6 % Critically high 43.0-75.0 [facility] Comment on above: Performed By: #### B LDCX2 #### [facility] [address] [place], [place] [address] Dr. Celina Venegas Platelet mean volume (Bld) [Entitic vol] 10.9 fL Normal 9.5-13.5 [facility] Comment on above: Performed By: #### B LDCX2 #### [facility] [address] [address] [address] Celina Venegas PLT 240 103/ul Normal 150-450 [facility] Comment on above: Performed By: #### B LDCX2 #### [facility] [address] [place], [place] [address] Dr. Celina Venegas RBC 3.58 106/ul Critically low 4.20-5.40 [facility] Comment on above: Performed By: #### B LDCX2 #### [facility] [address] [address] [address] Celina Venegas WBC 9.3 103/ul Normal 4.0-11.0 [facility] Comment on above: Performed By: #### B LDCX2 #### [facility] [address] ABD/PELV W CONon [...] by: THADDEUS LO Date: 2022-09-07 10:55 Normal [facility] MAGNESIUMon 09-07-2022 Magnesium [Mass/Vol] 1.6 mg/dL Critically low 1.8-2.4 [facility] Comment on above: Performed By: #### M G, BNP, CMP #### [facility] [address] [address] [address] Celina Venegas PROF CHEM 8 (BAS METB)on Anion gap [Moles/Vol] 11.6 mmol/L Normal [facility] Comment on above: Performed By: #### M G, BNP, CMP #### [facility] [address] [address] [address] Celina Venegas Calcium [Mass/Vol] 9.5 mg/dL Normal 8.5-10.1 [facility] Comment on above: Performed By: #### M G, BNP, CMP #### [facility] [address] [address] [address] Celina Venegas Chloride [Moles/Vol] 109 mmol/L Critically high 98-107 [facility] Comment on above: Performed By: #### M G, BNP, CMP #### [facility] [address] [address] [address] Celina Venegas CO2 [Moles/Vol] 23.2 mmol/L Normal 21.0-32.0 [facility] Comment on above: Performed By: #### M G, BNP, CMP #### [facility] [address] [address] [address] Celina Venegas Creatinine [Mass/Vol] 0.72 mg/dL Normal 0.55-1.02 [facility] Comment on above: Performed By: #### M G, BNP, CMP #### [facility] [address] [address] [address] Celina Venegas EGFR-AF MONTENEGRIN >60 Normal >=60 [facility] Comment on above: Performed By: #### M G, BNP, CMP #### [facility] [address] [address] [address] Celina Venegas EGFR-NON AF MONTENEGRIN >60 Normal >=60 [facility] Comment on above: Performed By: #### M G, BNP, CMP #### [facility] [address] [address] [address] Celina Venegas Glucose [Mass/Vol] 79 mg/dL Normal 74-106 [facility] Comment on above: Performed By: #### M G, BNP, CMP #### [facility] [address] [address] [address] Celina Venegas Potassium [Moles/Vol] 3.8 mmol/L Normal 3.5-5.1 [facility] Comment on above: Performed By: #### M G, BNP, CMP #### [facility] [address] [address] [address] Celina Venegas Sodium [Moles/Vol] 140 mmol/L Normal 136-145 [facility] Comment on above: Performed By: #### M G, BNP, CMP #### [facility] [address] [address] [address] Celina Venegas Urea nitrogen [Mass/Vol] 17.0 mg/dL Normal 7.0-18.0 [facility] Comment on above: Performed By: #### M G, BNP, CMP #### [facility] [address] [address] [address] Celina Venegas Urea nitrogen/Creatinine [Mass ratio] 23.6 mg/mg Normal [facility] Comment on above: Performed By: #### M G, BNP, CMP #### [facility] [address] [place] [address] Dr. Celina Venegas CBC AUTO DIFFon 09-06-2022 BASO # 0.0 103/ul Normal 0.0-0.1 [facility] Comment on above: Performed By: #### M G, BNP, CMP #### [facility] [address] [place] [address] Dr. Celina Venegas Basophils/100 WBC (Bld) 0.2 % Normal 0.2-2.0 [facility] Comment on above: Performed By: #### M G, BNP, CMP #### [facility] [address] [place] [address] Dr. Celina Venegas EO # 0.0 103/ul Normal 0.0-0.7 [facility] Comment on above: Performed By: #### M G, BNP, CMP #### [facility] [address] [place] [address] Dr. Celina Venegas Eosinophils/100 WBC (Bld) 0.2 % Critically low 0.9-7.0 [facility] Comment on above: Performed By: #### M G, BNP, CMP #### [facility] [address] [place] [address] Dr. Celina Venegas Erythrocyte distribution width (RBC) [Ratio] 13.9 % Normal 11.0-15.0 [facility] Comment on above: Performed By: #### M G, BNP, CMP #### [facility] [address] [place] [address] Dr. Celina Venegas Hematocrit (Bld) [Volume fraction] 30.6 % Critically low 36.0-48.0 [facility] Comment on above: Performed By: #### M G, BNP, CMP #### [facility] [address] [place] [address] Dr. Celina Venegas Hemoglobin (Bld) [Mass/Vol] 9.2 g/dL Critically low 12.0-16.0 [facility] Comment on above: Performed By: #### M G, BNP, CMP #### [facility] [address] [address] [address] Celina Venegas IG # 0.07 10e3/ul Critically high 0.00-0.03 [facility] Comment on above: Performed By: #### M G, BNP, CMP #### [facility] [address] [address] [address] Celina Venegas IG % 0.6 % Critically high 0.0-0.5 [facility] Comment on above: Performed By: #### M G, BNP, CMP #### [facility] [address] [place] [address] Dr. Celina Venegas LYMPH # 0.7 103/ul Critically low 1.2-3.8 [facility] Comment on above: Performed By: #### M G, BNP, CMP #### [facility] [address] [place] [address] Dr. Celina Venegas Lymphocytes/100 WBC (Bld) 5.4 % Critically low 20.5-60.0 [facility] Comment on above: Performed By: #### M G, BNP, CMP #### [facility] [address] [place] [address] Dr. Celina Venegas MANUAL DIFF REQ NO Normal [facility] Comment on above: Performed By: #### M G, BNP, CMP #### [facility] [address] [place] [address] Dr. Celina Venegas MCH (RBC) [Entitic mass] 25.1 pg Critically low 26.7-34.0 [facility] Comment on above: Performed By: #### M G, BNP, CMP #### [facility] [address] [place] [address] Dr. Celina Venegas MCHC (RBC) [Mass/Vol] 30.1 g/dL Normal 29.9-35.2 [facility] Comment on above: Performed By: #### M G, BNP, CMP #### [facility] [address] [place] [address] Dr. Celina Venegas MCV (RBC) [Entitic vol] 83.6 fL Normal 81.0-99.0 [facility] Comment on above: Performed By: #### M G, BNP, CMP #### [facility] [address] [place] [address] Dr. Celina Venegas MONO # 0.5 103/ul Normal 0.3-0.8 [facility] Comment on above: Performed By: #### M G, BNP, CMP #### [facility] [address] [place] [address] Dr. Celina Venegas Monocytes/100 WBC (Bld) 3.6 % Normal 1.7-12.0 [facility] Comment on above: Performed By: #### M G, BNP, CMP #### [facility] [address] [place] [address] Dr. Celina Venegas NEUT # 11.4 103/ul Critically high 1.4-6.5 [facility] Comment on above: Performed By: #### M G, BNP, CMP #### [facility] [address] [place] [address] Dr. Celina Venegas Neutrophils/100 WBC (Bld) 90.0 % Critically high 43.0-75.0 [facility] Comment on above: Performed By: #### M G, BNP, CMP #### [facility] [address] [place] [address] Dr. Celina Venegas Platelet mean volume (Bld) [Entitic vol] 10.5 fL Normal 9.5-13.5 [facility] Comment on above: Performed By: #### M G, BNP, CMP #### [facility] [address] [place] [address] Dr. Celina Venegas PLT 281 103/ul Normal 150-450 [facility] Comment on above: Performed By: #### M G, BNP, CMP #### [facility] [address] [place] [address] Dr. Celina Venegas RBC 3.66 106/ul Critically low 4.20-5.40 [facility] Comment on above: Performed By: #### M G, BNP, CMP #### [facility] [address] [place] [address] Dr. Celina Venegas WBC 12.7 103/ul Critically high 4.0-11.0 [facility] Comment on above: Performed By: #### M G, BNP, CMP #### [facility] [address] [place] [address] Dr. Celina Venegas LIVER PROFILEon 09-06-2022 Albumin [Mass/Vol] 2.4 g/dL Critically low 3.4-5.0 [facility] Comment on above: Performed By: #### M G, BNP, CMP #### [facility] [address] [place] [address] Dr. Celina Venegas Albumin/Globulin [Mass ratio] 0.6 {ratio} Normal [facility] Comment on above: Performed By: #### M G, BNP, CMP #### [facility] [address] [place] [address] Dr. Celina Venegas ALP [Catalytic activity/Vol] 118 U/L Critically high 46-116 [facility] Comment on above: Performed By: #### M G, BNP, CMP #### [facility] [address] [place] [address] Dr. Celina Venegas ALT [Catalytic activity/Vol] 16 U/L Normal 14-59 [facility] Comment on above: Performed By: #### M G, BNP, CMP #### [facility] [address] [place] [address] Dr. Celina Venegas AST [Catalytic activity/Vol] 11 U/L Critically low 15-37 [facility] Comment on above: Performed By: #### M G, BNP, CMP #### [facility] [address] [place] [address] Dr. Celina Venegas BILI, CONJUGATED 0.6 mg/dL Critically high 0.0-0.2 [facility] Comment on above: Performed By: #### M G, BNP, CMP #### [facility] [address] [place] [address] Dr. Celina Venegas Bilirubin [Mass/Vol] 1.2 mg/dL Critically high 0.2-1.0 [facility] Comment on above: Performed By: #### M G, BNP, CMP #### [facility] [address] [place] [address] Dr. Celina Venegas Globulin (S) [Mass/Vol] 3.7 g/dL Normal [facility] Comment on above: Performed By: #### M G, BNP, CMP #### [facility] [address] [place] [address] Dr. Celina Venegas Protein [Mass/Vol] 6.1 g/dL Critically low 6.4-8.2 [facility] Comment on above: Performed By: #### M G, BNP, CMP #### [facility] [address] [place] [address] Dr. Celina Venegas MAGNESIUMon 09-06-2022 Magnesium [Mass/Vol] 1.4 mg/dL Critically low 1.8-2.4 [facility] Comment on above: Performed By: #### M G, BNP, CMP #### [facility] [address] [place] [address] Dr. Celina Venegas PROF CHEM 8 (BAS METB)on Anion gap [Moles/Vol] 12.5 mmol/L Normal [facility] Comment on above: Performed By: #### M G, BNP, CMP #### [facility] [address] [place] [address] Dr. Celina Venegas Calcium [Mass/Vol] 9.3 mg/dL Normal 8.5-10.1 [facility] Comment on above: Performed By: #### M G, BNP, CMP #### [facility] [address] [place] [address] Dr. Celina Venegas Chloride [Moles/Vol] 105 mmol/L Normal 98-107 [facility] Comment on above: Performed By: #### M G, BNP, CMP #### [facility] [address] [place] [address] Dr. Celina Venegas CO2 [Moles/Vol] 23.6 mmol/L Normal 21.0-32.0 [facility] Comment on above: Performed By: #### M G, BNP, CMP #### [facility] [address] [place] [address] Dr. Celina Venegsa Creatinine [Mass/Vol] 0.80 mg/dL Normal 0.55-1.02 [facility] Comment on above: Performed By: #### M G, BNP, CMP #### [facility] [address] [address] [address] Celina Venegas EGFR-AF MONTENEGRIN >60 Normal >=60 [facility] Comment on above: Performed By: #### M G, BNP, CMP #### [facility] [address] [address] [address] Celina Venegas EGFR-NON AF MONTENEGRIN >60 Normal >=60 [facility] Comment on above: Performed By: #### M G, BNP, CMP #### [facility] [address] [address] [address] Celina Venegas Glucose [Mass/Vol] 106 mg/dL Normal 74-106 [facility] Comment on above: Performed By: #### M G, BNP, CMP #### [facility] [address] [address] [address] Celina Venegas Potassium [Moles/Vol] 3.1 mmol/L Critically low 3.5-5.1 [facility] Comment on above: Performed By: #### M G, BNP, CMP #### [facility] [address] [address] [address] Celina Venegas Sodium [Moles/Vol] 138 mmol/L Normal 136-145 [facility] Comment on above: Performed By: #### M G, BNP, CMP #### [facility] [address] [address] [address] Celina Venegas Urea nitrogen [Mass/Vol] 19.0 mg/dL Critically high 7.0-18.0 [facility] Comment on above: Performed By: #### M G, BNP, CMP #### [facility] [address] [address] [address] Celina Venegas Urea nitrogen/Creatinine [Mass ratio] 23.8 mg/mg Normal [facility] Comment on above: Performed By: #### M G, BNP, CMP #### [facility] [address] [place] [address] Dr. Celina Venegas XR ABD FLAT UP_PA [...] THADDEUS LO Date: 2022-09-06 17:36 Normal [facility] AUTO DIFFon 09-05-2022 BASO # 0.0 103/ul Normal 0.0-0.1 [facility] Comment on above: Performed By: #### C BC #### [facility] [address] [place] [address] Dr. Celina Venegas Basophils/100 WBC (Bld) 0.1 % Critically low 0.2-2.0 [facility] Comment on above: Performed By: #### C BC #### [facility] [address] [place] [address] Dr. Celina Venegas EO # 0.0 103/ul Normal 0.0-0.7 [facility] Comment on above: Performed By: #### C BC #### [facility] [address] [address] [address] Celina Venegas Eosinophils/100 WBC (Bld) 0.0 % Critically low 0.9-7.0 [facility] Comment on above: Performed By: #### C BC #### [facility] [address] [place] [address] Dr. Celina Venegas Erythrocyte distribution width (RBC) [Ratio] 13.8 % Normal 11.0-15.0 [facility] Comment on above: Performed By: #### C BC #### [facility] [address] [place] [address] Dr. Celina Venegas Hematocrit (Bld) [Volume fraction] 35.8 % Critically low 36.0-48.0 [facility] Comment on above: Performed By: #### C BC #### [facility] [address] [place] [address] Dr. Celina Venegas Hemoglobin (Bld) [Mass/Vol] 11.1 g/dL Critically low 12.0-16.0 [facility] Comment on above: Performed By: #### C BC #### [facility] [address] [place] [address] Dr. Celina Venegas IG # 0.08 10e3/ul Critically high 0.00-0.03 [facility] Comment on above: Performed By: #### C BC #### [facility] [address] [place] [address] Dr. Celina Venegas IG % 0.4 % Normal 0.0-0.5 [facility] Comment on above: Performed By: #### C BC #### [facility] [address] [place] [address] Dr. Celina Venegas LYMPH # 0.6 103/ul Critically low 1.2-3.8 [facility] Comment on above: Performed By: #### C BC #### [facility] [address] [place] [address] Dr. Celina Venegas Lymphocytes/100 WBC (Bld) 3.4 % Critically low 20.5-60.0 [facility] Comment on above: Performed By: #### C BC #### [facility] [address] [place] [address] Dr. Celina Venegas MANUAL DIFF REQ NO Normal [facility] Comment on above: Performed By: #### C BC #### [facility] [address] [place] [address] Dr. Celina Venegas MCH (RBC) [Entitic mass] 25.5 pg Critically low 26.7-34.0 [facility] Comment on above: Performed By: #### C BC #### [facility] [address] [place] [address] Dr. Celina Venegas MCHC (RBC) [Mass/Vol] 31.0 g/dL Normal 29.9-35.2 [facility] Comment on above: Performed By: #### C BC #### [facility] [address] [address] [address] Celina Venegas MCV (RBC) [Entitic vol] 82.1 fL Normal 81.0-99.0 [facility] Comment on above: Performed By: #### C BC #### [facility] [address] [address] [address] Celina Venegas MONO # 0.5 103/ul Normal 0.3-0.8 [facility] Comment on above: Performed By: #### C BC #### [facility] [address] [place] [address] Dr. Celina Venegas Monocytes/100 WBC (Bld) 2.9 % Normal 1.7-12.0 [facility] Comment on above: Performed By: #### C BC #### [facility] [address] [place] [address] Dr. Celina Venegas NEUT # 17.3 103/ul Critically high 1.4-6.5 [facility] Comment on above: Performed By: #### C BC #### [facility] [address] [place] [address] Dr. Celina Venegas Neutrophils/100 WBC (Bld) 93.2 % Critically high 43.0-75.0 [facility] Comment on above: Performed By: #### C BC #### [facility] [address] [place] [address] Dr. Celina Venegas Platelet mean volume (Bld) [Entitic vol] 10.1 fL Normal 9.5-13.5 [facility] Comment on above: Performed By: #### C BC #### [facility] [address] [place] [address] Dr. Celina Venegas PLT 367 103/ul Normal 150-450 [facility] Comment on above: Performed By: #### C BC #### [facility] [address] [place] [address] Dr. Celina Venegas RBC 4.36 106/ul Normal 4.20-5.40 [facility] Comment on above: Performed By: #### C BC #### [facility] [address] [address] [address] Celina Venegas WBC 18.6 103/ul Critically high 4.0-11.0 [facility] Comment on above: Performed By: #### C BC #### [facility] [address] [address] [address] Celina Venegas LIVER PROFILEon 09-05-2022 Albumin [Mass/Vol] 3.0 g/dL Critically low 3.4-5.[address] [facility] Comment on above: Performed By: #### H STROPN #### [facility] [address] [address] [address] Celina Venegas Albumin/Globulin [Mass ratio] 0.7 {ratio} Normal [facility] Comment on above: Performed By: #### H STROPN #### [facility] [address] [place] [address] Dr. Celina Venegas ALP [Catalytic activity/Vol] 132 U/L Critically high 46-116 [facility] Comment on above: Performed By: #### H STROPN #### [facility] [address] [address] [address] Celina Venegas ALT [Catalytic activity/Vol] 20 U/L Normal 14-59 [facility] Comment on above: Performed By: #### H STROPN #### [facility] [address] [address] [address] Celina Venegas AST [Catalytic activity/Vol] 15 U/L Normal 15-37 [facility] Comment on above: Performed By: #### H STROPN #### [facility] [address] [address] [address] Celina Venegas BILI, CONJUGATED 0.7 mg/dL Critically high 0.0-0.2 [facility] Comment on above: Performed By: #### H STROPN #### [facility] [address] [address] [address] Celina Venegas Bilirubin [Mass/Vol] 1.4 mg/dL Critically high 0.2-1.0 [facility] Comment on above: Performed By: #### H STROPN #### [facility] [address] [address] [address] Celina Venegas Globulin (S) [Mass/Vol] 4.1 g/dL Normal [facility] Comment on above: Performed By: #### H STROPN #### [facility] [address] [address] [address] Celina Venegas Protein [Mass/Vol] 7.1 g/dL Normal 6.4-8.2 [facility] Comment on above: Performed By: #### H STROPN #### [facility] [address] [address] [address] Celina Venegas MAGNESIUMon 09-05-2022 Magnesium [Mass/Vol] 1.5 mg/dL Critically low 1.8-2.4 [facility] Comment on above: Performed By: #### C BC #### [facility] [address] [place] [address] Dr. Celina Venegas MRI ABDOMEN WO CONon [...] THADDEUS LO Date: 2022-09-05 13:29 Normal [facility] PROF CHEM 8 (BAS METB)on Anion gap [Moles/Vol] 13.5 mmol/L Normal [facility] Comment on above: Performed By: #### C BC #### [facility] [address] [address] [address] Celina Venegas Calcium [Mass/Vol] 8.8 mg/dL Normal 8.5-10.1 [facility] Comment on above: Performed By: #### C BC #### [facility] [address] [place] [address] Dr. Celina Venegas Chloride [Moles/Vol] 106 mmol/L Normal 98-107 [facility] Comment on above: Performed By: #### C BC #### [facility] [address] [place] [address] Dr. Celina Venegas CO2 [Moles/Vol] 24.0 mmol/L Normal 21.0-32.0 [facility] Comment on above: Performed By: #### C BC #### [facility] [address] [place] [address] Dr. Celina Venegas Creatinine [Mass/Vol] 1.31 mg/dL Critically high 0.55-1.02 [facility] Comment on above: Performed By: #### C BC #### [facility] [address] [place] [address] Dr. Celina Venegas EGFR-AF MONTENEGRIN 51 mL/min/1.73m2 Critically low >=60 [facility] Comment on above: Performed By: #### C BC #### [facility] [address] [place] [address] Dr. Celina Venegas EGFR-NON AF MONTENEGRIN 42 mL/min/1.73m2 Critically low >=60 [facility] Comment on above: Performed By: #### C BC #### [facility] [address] [place] [address] Dr. Celina Venegas Glucose [Mass/Vol] 127 mg/dL Critically high 74-106 [facility] Comment on above: Performed By: #### C BC #### [facility] [address] [place] [address] Dr. Celina Venegas Potassium [Moles/Vol] 3.5 mmol/L Normal 3.5-5.1 [facility] Comment on above: Performed By: #### C BC #### [facility] [address] [place] [address] Dr. Celina Venegas Sodium [Moles/Vol] 140 mmol/L Normal 136-145 [facility] Comment on above: Performed By: #### C BC #### [facility] [address] [place] [address] Dr. Celina Venegas Urea nitrogen [Mass/Vol] 40.0 mg/dL Critically high 7.0-18.0 [facility] Comment on above: Performed By: #### C BC #### [facility] [address] [place] [address] Dr. Celina Venegas Urea nitrogen/Creatinine [Mass ratio] 30.5 mg/mg Normal [facility] Comment on above: Performed By: #### C BC #### [facility] [address] [place] [address] Dr. Celina Venegas TROPONIN, HIGH SENSITIVITYon 09-05-2022 HSTROP 48.5 pg/mL Normal 4.0-51.3 [facility] Comment on above: Result Comment: CUT- OFF POINTS HAVE BEEN ESTABLISHED BASED ON THE FOURTH UNIVERSAL DEFINITIONS OF MYOCARDIAL INFARCTION. THE UPPER REFERENCE LIMIT (URL) OF TROPONIN, DEFINED THE 99TH PERCENTILE OF cTnI DISTRIBUTION IN A REFERENCE POPULATION, HAS BEEN CONFIRMED THE DECISION THRESHOLD FOR IA DIAGNOSIS. Performed By: #### B [id number] #### [facility] [address] [place] [address] Dr. Celina Venegas AMYLASEon 09-04-2022 Amylase [Catalytic activity/Vol] 65 U/L Normal 25-115 [facility] Comment on above: Performed By: #### M G, BNP, CMP #### [facility] [address] [place] [address] Dr. Celina Venegas CBC AUTO DIFFon 09-04-2022 BASO # 0.0 103/ul Normal 0.0-0.1 [facility] Comment on above: Performed By: #### B [id number] #### [facility] [address] [place] [address] Dr. Celina Venegas Basophils/100 WBC (Bld) 0.2 % Normal 0.2-2.0 [facility] Comment on above: Performed By: #### B [id number] #### [facility] [address] [address] [address] Celina Venegas EO # 0.0 103/ul Normal 0.0-0.7 [facility] Comment on above: Performed By: #### B [id number] #### [facility] [address] [address] [address] Celina Venegas Eosinophils/100 WBC (Bld) 0.2 % Critically low 0.9-7.0 [facility] Comment on above: Performed By: #### B [id number] #### [facility] [address] [place] [address] Dr. Celina Venegas Erythrocyte distribution width (RBC) [Ratio] 13.7 % Normal 11.0-15.0 [facility] Comment on above: Performed By: #### B LDCX2 #### [facility] [address] [place] [address] Dr. Celina Venegas Hematocrit (Bld) [Volume fraction] 41.7 % Normal 36.0-48.0 [facility] Comment on above: Performed By: #### B [id number] #### [facility] [address] [place] [address] Dr. Celina Venegas Hemoglobin (Bld) [Mass/Vol] 13.3 g/dL Normal 12.0-16.0 [facility] Comment on above: Performed By: #### B [id number] #### [facility] [address] [place] [address] Dr. Celina Venegas IG # 0.12 10e3/ul Critically high 0.00-0.03 [facility] Comment on above: Performed By: #### B [id number] #### [facility] [address] [place] [address] Dr. Celina Venegas IG % 0.6 % Critically high 0.0-0.5 [facility] Comment on above: Performed By: #### B [id number] #### [facility] [address] [place] [address] Dr. Celina Venegas LYMPH # 1.2 103/ul Normal 1.2-3.8 [facility] Comment on above: Performed By: #### B [id number] #### [facility] [address] [address] [address] Celina Venegas Lymphocytes/100 WBC (Bld) 5.7 % Critically low 20.5-60.0 [facility] Comment on above: Performed By: #### B [id number] #### [facility] [address] [address] [address] Celina Venegas MANUAL DIFF REQ NO Normal [facility] Comment on above: Performed By: #### B [id number] #### [facility] [address] [place] [address] Dr. Celina Venegas MCH (RBC) [Entitic mass] 25.3 pg Critically low 26.7-34.0 [facility] Comment on above: Performed By: #### B [id number] #### [facility] [address] [place] [address] Dr. Celina Venegas MCHC (RBC) [Mass/Vol] 31.9 g/dL Normal 29.9-35.2 [facility] Comment on above: Performed By: #### B [id number] #### [facility] [address] [place] [address] Dr. Celina Venegas MCV (RBC) [Entitic vol] 79.4 fL Critically low 81.0-99.0 [facility] Comment on above: Performed By: #### B [id number] #### [facility] [address] [place] [address] Dr. Celina Venegas MONO # 1.0 103/ul Critically high 0.3-0.8 [facility] Comment on above: Performed By: #### B [id number] #### [facility] [address] [place] [address] Dr. Celina Venegas Monocytes/100 WBC (Bld) 4.5 % Normal 1.7-12.0 [facility] Comment on above: Performed By: #### B [id number] #### [facility] [address] [place] [address] Dr. Celina Venegas NEUT # 18.8 103/ul Critically high 1.4-6.5 [facility] Comment on above: Performed By: #### B [id number] #### [facility] [address] [place] [address] Dr. Celina Venegas Neutrophils/100 WBC (Bld) 88.8 % Critically high 43.0-75.0 [facility] Comment on above: Performed By: #### B [id number] #### [facility] [address] [place] [address] Dr. Celina Venegas Platelet mean volume (Bld) [Entitic vol] 10.0 fL Normal 9.5-13.5 [facility] Comment on above: Performed By: #### B [id number] #### [facility] [address] [place] [address] Dr. Celina Venegas PLT 563 103/ul Critically high 150-450 [facility] Comment on above: Performed By: #### B [id number] #### [facility] [address] [place] [address] Dr. Celina Venegas RBC 5.25 106/ul Normal 4.20-5.40 [facility] Comment on above: Performed By: #### B [id number] #### [facility] [address] [place] [address] Dr. Celina Venegas WBC 21.2 103/ul Critically high 4.0-11.0 [facility] Comment on above: Performed By: #### B [id number] #### [facility] [address] [place] [address] ABD/PELV W CONon [...] RAJ EDGAR Date: 2022-09-04 21:17 Normal [facility] CULTURE BLOODon 09-04-2022 Microscopic examination of blood, culture Culture Observations: NO GROWTH AT 5 DAYS. Normal [facility] Comment on above: Performed By: #### B [id number] #### [facility] [address] [place], [place] [address] Dr. Celina Venegas Performed By: #### H STROPN #### [facility] [address] [place], [place] [address] Dr. Celina Venegas ER URINE PROFILEon 3 Bilirubin Ql (U) Negative Normal NEGATIVE [facility] Comment on above: Performed By: #### H STROPN #### [facility] [address] [address] [address] Celina Venegas Clarity (U) CLEAR Normal CLEAR [facility] Comment on above: Performed By: #### H STROPN #### [facility] [address] [address] [address] Celina Venegas Color (U) LT. YELLOW Normal YELLOW [facility] Comment on above: Performed By: #### H STROPN #### [facility] [address] [address] [address] Celina SHEPARD A micrscopic examination will be performed if indicated. Normal [facility] Comment on above: Performed By: #### H STROPN #### [facility] [address] [place] [address] Dr. Celina Venegas Glucose Ql (U) Negative Normal NEGATIVE [facility] Comment on above: Performed By: #### H STROPN #### [facility] [address] [place] [address] Dr. Celina Venegas Hemoglobin Ql (U) Negative Normal NEGATIVE [facility] Comment on above: Performed By: #### H STROPN #### [facility] [address] [place] [address] Dr. Celina Venegas Ketones Ql (U) TRACE Abnormal NEGATIVE [facility] Comment on above: Performed By: #### H STROPN #### [facility] [address] [place] [address] Dr. Celina Venegas LEUKOCYTES Negative Normal NEGATIVE [facility] Comment on above: Performed By: #### H STROPN #### [facility] [address] [place] [address] Dr. Celina Venegas Nitrite Ql (U) Negative Normal NEGATIVE [facility] Comment on above: Performed By: #### H STROPN #### [facility] [address] [place] [address] Dr. Celina Venegas pH (U) 6.0 [pH] Normal 5-9 [facility] Comment on above: Performed By: #### H STROPN #### [facility] [address] [place] [address] Dr. Celina Venegas SPEC GRAVITY <=1.005 Abnormal 1.005-<=1.025 [facility] Comment on above: Performed By: #### H STROPN #### [facility] [address] [place] [address] Dr. Celina Venegas UA PROTEIN TRACE Normal NEGATIVE/ TRACE [facility] Comment on above: Performed By: #### H STROPN #### [facility] [address] [place] [address] Dr. Celina Venegas UR MICRO IND NOT INDICATED Normal [facility] Comment on above: Performed By: #### H STROPN #### [facility] [address] [place] [address] Dr. Celina Venegas Urobilinogen Qn (U) 0.2 {Pamela'U}/dL Normal 0.2 - 1. 0 [facility] Comment on above: Performed By: #### H STROPN #### [facility] [address] [place] [address] Dr. Celina Venegas LACTATE/LACTIC ACIDon 2022 Lactate [Moles/Vol] 1.4 mmol/L Normal 0.4-2.0 [facility] Comment on above: Performed By: #### B [id number] #### [facility] [address] [place] [address] Dr. Celina Venegas LIPASEon 09-04-2022 Lipase [Catalytic activity/Vol] 194.0 U/L Normal 73.0-393.0 [facility] Comment on above: Performed By: #### M G, BNP, CMP #### [facility] [address] [place] [address] Dr. Celina Venegas PREG HCG QUALon 09-04-2022 , QUAL Negative Normal NEGATIVE [facility] Comment on above: Performed By: #### P REG #### [facility] [address] [place] [address] Dr. Celina Venegas PROF 14(COMP METB)on 023 Albumin [Mass/Vol] 3.6 g/dL Normal 3.4-5.0 [facility] Comment on above: Performed By: #### M G, BNP, CMP #### [facility] [address] [address] [address] Celina Venegas Albumin/Globulin [Mass ratio] 0.8 {ratio} Normal [facility] Comment on above: Performed By: #### M G, BNP, CMP #### [facility] [address] [address] [address] Celina Venegas ALP [Catalytic activity/Vol] 175 U/L Critically high 46-116 [facility] Comment on above: Performed By: #### M G, BNP, CMP #### [facility] [address] [address] [address] Celina Venegas ALT [Catalytic activity/Vol] 22 U/L Normal 14-59 [facility] Comment on above: Performed By: #### M G, BNP, CMP #### [facility] [address] [address] [address] Celina Venegas Anion gap [Moles/Vol] 15.8 mmol/L Normal [facility] Comment on above: Performed By: #### M G, BNP, CMP #### [facility] [address] [address] [address] Celina Venegas AST [Catalytic activity/Vol] 16 U/L Normal 15-37 [facility] Comment on above: Performed By: #### M G, BNP, CMP #### [facility] [address] [address] [address] Celina Venegas Bilirubin [Mass/Vol] 0.7 mg/dL Normal 0.2-1.0 [facility] Comment on above: Performed By: #### M G, BNP, CMP #### [facility] [address] [address] [address] Celina Venegas Calcium [Mass/Vol] 9.2 mg/dL Normal 8.5-10.1 [facility] Comment on above: Performed By: #### M G, BNP, CMP #### [facility] [address] [address] [address] Celina Venegas Chloride [Moles/Vol] 99 mmol/L Normal 98-107 [facility] Comment on above: Performed By: #### M G, BNP, CMP #### [facility] [address] [place] [address] Dr. Celina Venegas CO2 [Moles/Vol] 25.1 mmol/L Normal 21.0-32.0 [facility] Comment on above: Performed By: #### M G, BNP, CMP #### [facility] [address] [place] [address] Dr. Celina Venegas Creatinine [Mass/Vol] 1.90 mg/dL Critically high 0.55-1.02 [facility] Comment on above: Performed By: #### M G, BNP, CMP #### [facility] [address] [place] [address] Dr. Celina Venegas EGFR-AF MONTENEGRIN 34 mL/min/1.73m2 Critically low >=60 [facility] Comment on above: Performed By: #### M G, BNP, CMP #### [facility] [address] [place] [address] Dr. Celina Venegas EGFR-NON AF MONTENEGRIN 28 mL/min/1.73m2 Critically low >=60 [facility] Comment on above: Performed By: #### M G, BNP, CMP #### [facility] [address] [place] [address] Dr. Celina Venegas Globulin (S) [Mass/Vol] 4.4 g/dL Normal [facility] Comment on above: Performed By: #### M G, BNP, CMP #### [facility] [address] [place] [address] Dr. Celina Venegas Glucose [Mass/Vol] 139 mg/dL Critically high 74-106 [facility] Comment on above: Performed By: #### M G, BNP, CMP #### [facility] [address] [place] [address] Dr. Celina Venegas Potassium [Moles/Vol] 2.8 mmol/L Critically low 3.5-5.1 [facility] Comment on above: Performed By: #### M G, BNP, CMP #### [facility] [address] [address] [address] Celina Venegas Protein [Mass/Vol] 8.0 g/dL Normal 6.4-8.2 [facility] Comment on above: Performed By: #### M G, BNP, CMP #### [facility] [address] [address] [address] Celina Venegas Sodium [Moles/Vol] 136 mmol/L Normal 136-145 [facility] Comment on above: Performed By: #### M G, BNP, CMP #### [facility] [address] [address] [address] Celina Venegas Urea nitrogen [Mass/Vol] 49.0 mg/dL Critically high 7.0-18.0 [facility] Comment on above: Performed By: #### M G, BNP, CMP #### [facility] [address] [address] [address] Celina Venegas Urea nitrogen/Creatinine [Mass ratio] 25.8 mg/mg Normal [facility] Comment on above: Performed By: #### M G, BNP, CMP #### [facility] [address] [address] [address] Celina Venegas TROPONIN, HIGH SENSITIVITYon 09-04-2022 HSTROP 63.4 pg/mL Critically high 4.0-51.3 [facility] Comment on above: Result Comment: CUT- OFF POINTS HAVE BEEN ESTABLISHED BASED ON THE FOURTH UNIVERSAL DEFINITIONS OF MYOCARDIAL INFARCTION. THE UPPER REFERENCE LIMIT (URL) OF TROPONIN, DEFINED THE 99TH PERCENTILE OF cTnI DISTRIBUTION IN A REFERENCE POPULATION, HAS BEEN CONFIRMED THE DECISION THRESHOLD FOR IA DIAGNOSIS. Performed By: #### B [id number] #### [facility] [address] [place] [address] Dr. Celina Venegas XR CHEST 1 Von [...] FELICIANO QUIROZ Date: 2022-09-04 20:25 Normal [facility] CARDIAC LOUISE ADMITon 023 CK [Catalytic activity/Vol] 10 U/L Critically low 26-192 [facility] Comment on above: Performed By: #### B [id number] #### [facility] [address] [place] [address] Dr. Celina Venegas CK.MB [Mass/Vol] ng/mL Normal <=3.60 [facility] Comment on above: Performed By: #### B [id number] #### [facility] [address] [place] [address] Dr. Celina Venegas HSTROP 11.8 pg/mL Normal 4.0-51.3 [facility] Comment on above: Result Comment: CUT- OFF POINTS HAVE BEEN ESTABLISHED BASED ON THE FOURTH UNIVERSAL DEFINITIONS OF MYOCARDIAL INFARCTION. THE UPPER REFERENCE LIMIT (URL) OF TROPONIN, DEFINED THE 99TH PERCENTILE OF cTnI DISTRIBUTION IN A REFERENCE POPULATION, HAS BEEN CONFIRMED THE DECISION THRESHOLD FOR IA DIAGNOSIS. Performed By: #### B [id number] #### [facility] [address] [place] [address] Dr. Celina Venegas SHAWANDA 27 ng/mL Normal 9-82 [facility] Comment on above: Performed By: #### B [id number] #### [facility] [address] [place] [address] Dr. Celina Venegas CBC AUTO DIFFon 08-20-2022 BASO # 0.0 103/ul Normal 0.0-0.1 [facility] Comment on above: Performed By: #### P REG #### [facility] [address] [place] [address] Dr. Celina Venegas Basophils/100 WBC (Bld) 0.3 % Normal 0.2-2.0 [facility] Comment on above: Performed By: #### P REG #### [facility] [address] [place] [address] Dr. Celina Venegas EO # 0.0 103/ul Normal 0.0-0.7 [facility] Comment on above: Performed By: #### P REG #### [facility] [address] [address] [address] Celina Venegas Eosinophils/100 WBC (Bld) 0.3 % Critically low 0.9-7.0 [facility] Comment on above: Performed By: #### P REG #### [facility] [address] [place] [address] Dr. Celina Venegas Erythrocyte distribution width (RBC) [Ratio] 12.7 % Normal 11.0-15.0 [facility] Comment on above: Performed By: #### P REG #### [facility] [address] [place] [address] Dr. Celina Vneegas Hematocrit (Bld) [Volume fraction] 35.8 % Critically low 36.0-48.0 [facility] Comment on above: Performed By: #### P REG #### [facility] [address] [place] [address] Dr. Celina Venegas Hemoglobin (Bld) [Mass/Vol] 11.5 g/dL Critically low 12.0-16.0 [facility] Comment on above: Performed By: #### P REG #### [facility] [address] [place] [address] Dr. Celina Venegas IG # 0.04 10e3/ul Critically high 0.00-0.03 [facility] Comment on above: Performed By: #### P REG #### [facility] [address] [place] [address] Dr. Celina Venegas IG % 0.4 % Normal 0.0-0.5 [facility] Comment on above: Performed By: #### P REG #### [facility] [address] [place] [address] Dr. Celina Venegas LYMPH # 1.6 103/ul Normal 1.2-3.8 [facility] Comment on above: Performed By: #### P REG #### [facility] [address] [place] [address] Dr. Celina Venegas Lymphocytes/100 WBC (Bld) 14.0 % Critically low 20.5-60.0 [facility] Comment on above: Performed By: #### P REG #### [facility] [address] [address] [address] Celina Venegas MANUAL DIFF REQ NO Normal [facility] Comment on above: Performed By: #### P REG #### [facility] [address] [place] [address] Dr. Celina Venegas MCH (RBC) [Entitic mass] 25.8 pg Critically low 26.7-34.0 [facility] Comment on above: Performed By: #### P REG #### [facility] [address] [place] [address] Dr. Celina Venegas MCHC (RBC) [Mass/Vol] 32.1 g/dL Normal 29.9-35.2 [facility] Comment on above: Performed By: #### P REG #### [facility] [address] [place] [address] Dr. Celina Venegas MCV (RBC) [Entitic vol] 80.3 fL Critically low 81.0-99.0 [facility] Comment on above: Performed By: #### P REG #### [facility] [address] [place] [address] Dr. Celina Venegas MONO # 0.9 103/ul Critically high 0.3-0.8 [facility] Comment on above: Performed By: #### P REG #### [facility] [address] [place] [address] Dr. Celina Venegas Monocytes/100 WBC (Bld) 8.2 % Normal 1.7-12.0 [facility] Comment on above: Performed By: #### P REG #### [facility] [address] [place] [address] Dr. Celina Venegas NEUT # 8.7 103/ul Critically high 1.4-6.5 [facility] Comment on above: Performed By: #### P REG #### [facility] [address] [place] [address] Dr. Celina Venegas Neutrophils/100 WBC (Bld) 76.8 % Critically high 43.0-75.0 [facility] Comment on above: Performed By: #### P REG #### [facility] [address] [place], [place] [address] Dr. Celina Venegas Platelet mean volume (Bld) [Entitic vol] 10.7 fL Normal 9.5-13.5 [facility] Comment on above: Performed By: #### P REG #### [facility] [address] [address] [address] Celina Venegas PLT 357 103/ul Normal 150-450 [facility] Comment on above: Performed By: #### P REG #### [facility] [address] [address] [address] Celina Venegas RBC 4.46 106/ul Normal 4.20-5.40 [facility] Comment on above: Performed By: #### P REG #### [facility] [address] [place] [address] Dr. Celina Venegas WBC 11.4 103/ul Critically high 4.0-11.0 [facility] Comment on above: Performed By: #### P REG #### [facility] [address] [place] [address] ABD/PELV W CONon [...] KAYDEN AGUILAR Date: 2022-08-20 10:51 Normal [facility] Covid-19 PCR (CVDTB)on SARS-CoV-2 (COVID-19) RNA ELVA+probe Ql (Unsp spec) Not detected Normal NOT DETECTED [facility] Comment on above: Result Comment: When diagnostic [...] for this test is supported by the [employer] Specialist of Health and Human Service's declaration that [...] used). Performed By: #### P REG #### [facility] [address] [address] [address] Celina Venegas ER URINE PROFILEon 3 Bilirubin Ql (U) Negative Normal NEGATIVE [facility] Comment on above: Performed By: #### M G, BNP, CMP #### [facility] [address] [address] [address] Celina Venegas Clarity (U) CLEAR Normal CLEAR [facility] Comment on above: Performed By: #### M G, BNP, CMP #### [facility] [address] [place] [address] Dr. Celina Venegas Color (U) YELLOW Normal YELLOW [facility] Comment on above: Performed By: #### M G, BNP, CMP #### [facility] [address] [place] [address] Dr. Celina SHEPARD A micrscopic examination will be performed if indicated. Normal [facility] Comment on above: Performed By: #### M G, BNP, CMP #### [facility] [address] [place] [address] Dr. Celina Venegas Glucose Ql (U) Negative Normal NEGATIVE [facility] Comment on above: Performed By: #### M G, BNP, CMP #### [facility] [address] [place] [address] Dr. Celina Venegas Hemoglobin Ql (U) Negative Normal NEGATIVE [facility] Comment on above: Performed By: #### M G, BNP, CMP #### [facility] [address] [address] [address] Celina Venegas Ketones Ql (U) Negative Normal NEGATIVE [facility] Comment on above: Performed By: #### M G, BNP, CMP #### [facility] [address] [place] [address] Dr. Celina Venegas LEUKOCYTES Negative Normal NEGATIVE [facility] Comment on above: Performed By: #### M G, BNP, CMP #### [facility] [address] [place] [address] Dr. Celina Venegas Nitrite Ql (U) Negative Normal NEGATIVE [facility] Comment on above: Performed By: #### M G, BNP, CMP #### [facility] [address] [address] [address] Celina Venegas pH (U) 7.0 [pH] Normal 5-9 [facility] Comment on above: Performed By: #### M G, BNP, CMP #### [facility] [address] [address] [address] Celina Venegas Protein (U) [Mass/Vol] 30 mg/dL Abnormal NEGATIVE/ TRACE [facility] Comment on above: Performed By: #### M G, BNP, CMP #### [facility] [address] [place] [address] Dr. Celina Venegas SPEC GRAVITY 1.005 Normal 1.005-<=1.025 [facility] Comment on above: Performed By: #### M G, BNP, CMP #### [facility] [address] [place] [address] Dr. Celina Venegas UR MICRO IND INDICATED Normal [facility] Comment on above: Performed By: #### M G, BNP, CMP #### [facility] [address] [place] [address] Dr. Celina Venegas Urobilinogen Qn (U) 1.0 {Pamela'U}/dL Normal 0.2 - 1. 0 [facility] Comment on above: Performed By: #### M G, BNP, CMP #### [facility] [address] [place] [address] Dr. Celina Venegas PROF 14(COMP METB)on 023 Albumin [Mass/Vol] 3.2 g/dL Critically low 3.4-5.0 [facility] Comment on above: Performed By: #### P REG #### [facility] [address] [place] [address] Dr. Celina Venegas Albumin/Globulin [Mass ratio] 0.8 {ratio} Normal [facility] Comment on above: Performed By: #### P REG #### [facility] [address] [place] [address] Dr. Celina Venegas ALP [Catalytic activity/Vol] 190 U/L Critically high 46-116 [facility] Comment on above: Performed By: #### P REG #### [facility] [address] [address] [address] Celina Venegas ALT [Catalytic activity/Vol] 44 U/L Normal 14-59 [facility] Comment on above: Performed By: #### P REG #### [facility] [address] [address] [address] Celina Venegas Anion gap [Moles/Vol] 15.6 mmol/L Normal [facility] Comment on above: Performed By: #### P REG #### [facility] [address] [address] [address] Celina Venegas AST [Catalytic activity/Vol] 36 U/L Normal 15-37 [facility] Comment on above: Performed By: #### P REG #### [facility] [address] [place] [address] Dr. Celina Venegas Bilirubin [Mass/Vol] 0.8 mg/dL Normal 0.2-1.0 [facility] Comment on above: Performed By: #### P REG #### [facility] [address] [address] [address] Celina Venegas Calcium [Mass/Vol] 9.7 mg/dL Normal 8.5-10.1 [facility] Comment on above: Performed By: #### P REG #### [facility] [address] [address] [address] Celina Venegas Chloride [Moles/Vol] 104 mmol/L Normal 98-107 [facility] Comment on above: Performed By: #### P REG #### [facility] [address] [address] [address] Celina Venegas CO2 [Moles/Vol] 21.3 mmol/L Normal 21.0-32.0 [facility] Comment on above: Performed By: #### P REG #### [facility] [address] [place] [address] Dr[address] Celina Venegas Creatinine [Mass/Vol] 0.70 mg/dL Normal 0.55-1.02 [facility] Comment on above: Performed By: #### P REG #### [facility] [address] [address] [address] Celina Venegas EGFR-AF MONTENEGRIN >60 Normal >=60 [facility] Comment on above: Performed By: #### P REG #### [facility] [address] [place] [address] [address] Celina Venegas EGFR-NON AF MONTENEGRIN >60 Normal >=60 [facility] Comment on above: Performed By: #### P REG #### [facility] [address] [address] [address] Celina Venegas Globulin (S) [Mass/Vol] 4.2 g/dL Normal [facility] Comment on above: Performed By: #### P REG #### [facility] [address] [place] [address] Dr. Celnia Venegas Glucose [Mass/Vol] 110 mg/dL Critically high 74-106 [facility] Comment on above: Performed By: #### P REG #### [facility] [address] [address] [address] Celina eVnegas Potassium [Moles/Vol] 2.9 mmol/L Critically low 3.5-5.1 [facility] Comment on above: Performed By: #### P REG #### [facility] [address] [place] [address] Dr. Celina Venegas Protein [Mass/Vol] 7.4 g/dL Normal 6.4-8.2 [facility] Comment on above: Performed By: #### P REG #### [facility] [address] [place] [address] Dr. Celina Venegas Sodium [Moles/Vol] 137 mmol/L Normal 136-145 [facility] Comment on above: Performed By: #### P REG #### [facility] [address] [address] [address] Celina Venegas Urea nitrogen [Mass/Vol] 20.0 mg/dL Critically high 7.0-18.0 [facility] Comment on above: Performed By: #### P REG #### [facility] [address] [address] [address] Celina Venegas Urea nitrogen/Creatinine [Mass ratio] 28.6 mg/mg Normal [facility] Comment on above: Performed By: #### P REG #### [facility] [address] [place] [address] Dr. Celina Venegas URINE MICROSCOPIC ONLYon BACTERIA NONE SEEN Normal NONE SEEN [facility] Comment on above: Performed By: #### M G, BNP, CMP #### [facility] [address] [place] [address] Dr. Celina Venegas Bacteria identified Cx Nom (U) NOT INDICATED Normal [facility] Comment on above: Performed By: #### M G, BNP, CMP #### [facility] [address] [place] [address] Dr. Celina Venegas CAST NONE SEEN Normal NONE SEEN [facility] Comment on above: Performed By: #### M G, BNP, CMP #### [facility] [address] [place] [address] Dr. Celina Venegas Crystals LM Nom (Urine sed) NONE SEEN Normal NONE SEEN [facility] Comment on above: Performed By: #### M G, BNP, CMP #### [facility] [address] [place] [address] Dr. Celina Venegas Epithelial cells LM Ql (Urine sed) RARE Normal NONE SEEN /RARE [facility] Comment on above: Performed By: #### M G, BNP, CMP #### [facility] [address] [place] [address] Dr. Celina Venegas MUCOUS NONE SEEN Normal NONE SEEN [facility] Comment on above: Performed By: #### M G, BNP, CMP #### [facility] [address] [place] [address] Dr. Celina Venegas RBC NONE SEEN Abnormal 0-2 [facility] Comment on above: Performed By: #### M G, BNP, CMP #### [facility] [address] [place] [address] Dr. Celina Venegas WBC 0-2 Abnormal NONE SEEN [facility] Comment on above: Performed By: #### M G, BNP, CMP #### [facility] [address] [address] [address] Celina Venegas Encounters Encounter Date Encounter Type Care Provider Facility Start: 06-13-2023 End: 06-13-2023 ambulatory [facility] Start: 05-25-2023 Evaluation and management of inpatient NOORALDIN SINGH [facility] Start: 05-24-2023 End: 05-26-2023 Evaluation and management of inpatient [facility] Start: 04-18-2023 End: 04-18-2023 ambulatory [facility] Start: 03-07-2023 End: 03-07-2023 ambulatory [facility] Start: 01-09-2023 End: 01-09-2023 ambulatory [facility] Start: 11-25-2022 End: 11-28-2022 ambulatory [facility] Start: 10-28-2022 End: 10-28-2022 [facility]: 10-07-2022 End: 10-09-2022 Evaluation and management of inpatient YAYO ROBBIE . Facility:[facility] Start: 09-23-2022 End: 09-23-2022 ambulatory BLOSSOM ROBBIE II Facility:[facility] Start: 09-22-2022 End: 09-23-2022 ambulatory DIVYA ACOSTA Facility:[facility] Start: 09-05-2022 End: 09-06-2022 ambulatory Hector QUILES Facility:CD:[id number] Start: 09-05-2022 End: 09-08-2022 Evaluation and management of inpatient YAYO ROBBIE . Facility:[facility] Start: 08-20-2022 End: 08-20-2022 ambulatory RAQUEL MIN . Facility:[facility] Start: 02-21-[address] DOCTOR QUICK Facility :[facility] Procedures Date Procedure Procedure Detail Performing Clinician Start: 10-07-2022 Insertion of Endotra cheal Airway into Trachea, Via Natural or Artificial Opening DR DOCTOR QUICK Payers Date Payer Category Payer Unknown [id number] [id number] [id number] 1970 Unknown [id number] [id number] 1970 Unknown [id number] 2.16.84 [id number] 1970 Unknown [id number] 2.16.84 [id number] 1970 Unknown [id number] 2.16.84 [id number] 1969 Unknown [id number] 2.16.84 [id number] 1969 Unknown [id number] 2.16.84 [id number] 1969 Unknown [id number] 2.16.84 [id number] 1960 Self-pay [id number] 1960 Unknown [id number] Clinical Notes 09-05-2022 to 06-13-2023 Note Date & Type Note Facility 06-13-2023 Note Patient here for [facility]. Heart cath and EP procedures were not performed. Still has intermittent chest pain and dizzy spells. Says the dizziness is much better. She is always SOB. Denies LE edema and bleeding on Eliquis. Review of Systems Cardiovascular: Positive for chest pain, dyspnea on exertion and palpitations (improving). Respiratory: Positive for cough and shortness of breath. Neurological: Positive for dizziness (improving) and light-headedness. All other systems reviewed and are negative. [facility] 06-13-2023 Note [place] Electrophysiology Consult Note Reason for visit: HFU, afib rvr, sinus pause 3 seconds 06/13/23: She is here for hospital follow-up from [facility] she was admitted for chest pain and A-fib She was found to have severe thyroid abnormalities as well as A-fib RVR she had heart cath scheduled for 06/07/2023 due to NSVT on the monitor, she had stress test prior to that which was negative for any reversible ischemia but did show defect in LAD; she had V stim EP study with loop scheduled for 06/07/2023 as well. both of her cardiac procedures were delayed as we prefer to optimize her thyroid function first as this can contribute to SVT/VT she continues to feel palpitations and presyncope when experiencing palpitations, she has had no syncopal episodes and palpitations typically resolve she states between 15 and 30 seconds 04/18/23 Patient here for follow up stress [...] syncope. Her event monitor reveaed NSVT and SPINDLE SANDER had ordered a stress test which was [...] with normal intervals Bronson bailey 10/2022 Shahida Mirza is a 52 y.o. year old female patient being who was seen in consultation at the [facility] for NSTEMI, acute on chronic diastolic heart [...] Abnormal ECG Arrhythmia CHF (congestive heart failure) ([facility]) COPD (chronic obstructive pulmonary disease) ([facility]) Hypertension NSVT (nonsustained ventricular tachycardia) ([facility]) PSH: Past Surgical History: Procedure Laterality Date APPENDECTOMY SH: Social Determinants of Health Tobacco Use: Low Risk (03/07/2023) Patient History Smoking Tobacco Use: Never Smokeless Tobacco Use: Never Passive Exposure: Past Alcohol Use: Not on file Financial Resource Strain: Low Risk (05/24/2023) Overall Financial Resource Strain (CARDIA) Difficulty of Paying Living Expenses: Not hard at all Food Insecurity: Unknown (05/24/2023) Hunger Vital Sign Worried About Running Out of Food in the Last Year: Never true Ran Out of Food in the Last Year: Not on file Transportation Needs: Unknown (05/24/2023) PRAPARE - Transportation Lack of Transportation (Medical): No Lack of Transportation (Non-Medical): Not on file Physical Activity: Not on file Stress: Not on file Social Connections: Not on file Intimate Partner Violence: Not on file (05/24/2023) Depression: Not on file Housing Stability: Unknown (05/24/2023) Housing Stability Vital Sign Unable to Pay for Housing in the Last Year: Not on file Number of Places Lived in the Last Year: Not on file Unstable Housing in the Last Year: No Utilities: Not At Risk (05/24/2023) [facility] Utilities Threatened with loss of utilities: No Allergies: No Known Allergies Weight: No weight available Visit Vitals Smoking Status Never Meds: Current Outpatient Medications on File Prior to Visit Medication Sig Dispense Refill albuterol 90 mcg/actuation inhaler Inhale 2 puffs every 6 (six) hours if needed for wheezing. atorvastatin (Lipitor) 40 mg tablet Take 10 mg by mouth at bedtime. cetirizine (ZyrTEC) 10 mg tablet 1 (one) time each day at the same time. citalopram (CeleXA) 10 mg tablet Take 20 mg by mouth if needed. dapagliflozin (Farxiga) 10 mg Take 1 tablet (10 mg) by mouth in the morning. (Patient not taking: Reported on 04/18/2023) 90 tablet 3 Eliquis 5 mg tablet Take 1 (more content not included)... [facility] 05-26-2023 Note -- Attestation signed by Perla Esquivel MD at 05/26/2023 12:04 PM I personally saw and examined the patient on the same date of service as resident/fellow Dr Read. I discussed the findings and therapeutic plan with the resident/fellow Dr Read. I agree with the documentation, except for any edits/updates below. Teaching Physician's Revisions: Before considering any invasive investigations and/or interventions, reversible causes for her supraventricular and ventricular arrhythmias must be corrected, particularly her thyroid disorder Once she is stable from a medical standpoint, it would be reasonable to discharge the patient home and have her follow-up with our e learning specialist in the [place] outpatient office. Perla Esquivel MD, MPH, FACC, [facility], [facility] Interventional Cardiology Pager Email: [email or web address] -- Cardiology Progress Note Subjective Subjective: Shahida Mirza is a 52 y.o. female who was seen and examined at bedside. Patient has no further complaints today including no chest pain, chest tightness, shortness of breath, palpitations Objective Objective: Patient Vitals for the past 24 hrs: BP Temp Temp src Pulse Resp Weight 05/26/23 0941 109/75 -- -- 70 -- -- 05/26/23 0937 109/75 -- -- -- -- -- 05/26/23 0522 -- -- -- -- -- 48.2 kg (106 lb 4.2 oz) 05/26/23 0407 109/53 36.9 ???C (98.4 ???F) -- 60 -- -- 05/26/23 0000 (!) 96/44 36.9 ???C (98.5 ???F) -- 60 -- -- 05/25/23 2120 118/60 36.7 ???C (98 ???F) -- 70 -- -- 05/25/23 1705 (!) 152/95 36.9 ???C (98.4 ???F) Temporal 76 18 -- 05/25/23 1255 155/66 36.9 ???C (98.4 ???F) Temporal 62 16 -- Physical Examination: GENERAL: AOx3, in no acute distress. HEAD: Atraumatic, normocephalic. EYES: EOMI. NECK: No JVD present. CARDIAC: RRR. No murmur, rubs, or gallops. RESPIRATORY: CTAB, no increased effort of breathing. ABDOMEN: Soft, nontender, nondistended. EXTREMITIES: No lower extremity edema NEURO: No focal deficits Relevant Lab Results Encounter Date: 05/24/23 ECG 12 lead Result Value Ventricular Rate 62 Atrial Rate 62 IN Interval 174 QRS DURATION 90 QT Interval 440 QTC CALCULATION(BAZETT) 446 P [place] 36 R-[place] 53 T Wave [place] 69 Impression Normal sinus rhythm Normal ECG No previous ECGs available Confirmed by Fabian Lira ([id number]) on 05/25/2023 8:31:53 PM Lab Results Component Value Date TROPONINI 0.01 05/25/2023 No echocardiogram results found for the past 12 months No nuclear medicine results found for the past 12 months Relevant Imaging Results ECG 12 lead Normal sinus rhythm Normal ECG No previous ECGs available Confirmed by Fabian Lira ([id number]) on 05/25/2023 8:31:53 PM Assessment: Paroxsymal atrial fibrillation/flutter with RVR, currently in sinus Nonsustained Vts Multiple PVCs Multiple sinus pauses History of hyperthyroidism, TSH levels are undetectable. On methimazole - home medication Heart failure with preserved ejection fraction, stable, NYHA 2 Plan: No plans for intervention by EP team at this time Discontinued heparin gtt, resumed home eliquis. Recommend correcting underlying thyroid status. Patient's paroxysmal atrial fibrillation/flutter, SVT, PVCs are likely secondary to hyperthyroidism Cardiology will sign off at this time This note was, at least in part, completed using a voice import dispatcher system. Every effort was made to ensure accuracy. However, inadvertent computerized import dispatcher errors may be present. Paulina Read MD Internal Medicine PGY-2 [facility] 05-26-2023 Note 05/26/23 0958 Admission Assessment Questions Verify insurance with patient Yes Do you understand medical disease or what brought you into the hospital? Yes Who is your current PCP? Sylwia De MD Can I schedule a follow up appointment for you at the time of discharge? No Do you understand why you are taking your current medications? Yes Are you taking your medications as prescribed? Yes Did patient provide teach back? Yes Would you like use our pharmacy [facility] to fill your new medications at the time of Discharge? Yes Does the patient have a case packer assigned to them through their insurance? No Living Arrangement (Current/Prior to Hospitalization) Private residence;Home self care (lives in 2 story - bed and bath on first floor. Has 4 step to enter) Does the patient have history of HHC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
[2023-06-16 14:02] LABS: TSH W/ REFLEX FT4 0.007 uIU/mL (0.358-3.740)
[2023-06-16 14:22] LABS: Free T4 0.63 ng/dL (0.76-1.46)
== END 2023-06-16 13:10 | disposition home or self-care (01) ==
LOC: LAB 13:12
PROVIDERS: PCP Family Medicine; Visit Provider Nurse Practitioner
DX: I45.5 Other specified heart block (principal); I48.0 Paroxysmal atrial fibrillation
CPT/HCPCS: 36415; 84439; 84443

== ENCOUNTER 2023-09-29 07:46 | Outpatient (OUT) | payer OTHER, SELFPAY ==
--- OUTSIDE RECORDS SUMMARY | 2023-09-29 07:53 | XMS_ITS | CCD ---
Author Organization [facility] Care Team Providers Care Paster Operator Name Role Phone Hector QUILES Attending Unavailable NILL, Hector Hair Attending Unavailable Musa Caro Referring Unavailable MISC, DR TOMPKINS Primary Care Unavailable MISC, DR TOMPKINS Attending Unavailable MISC, DR TOMPKINS Admitting Unavailable ROBBIE ., YAYO Admitting Unavailable ZIEBER, DR THADDEUS Hair Consulting Unavailable [facility] Primary Care Unavailable ROBBIE ., YAYO Attending [...] Unavailable SAMSA ., LEE ANN Consulting Unavailable AHOT, JUAN LUIS Consulting Unavailable JUAN PABLO COLEMAN Consulting [...] CLEMENT Consulting Unavailable RAQUEL SHETH Admitting Unavailable MISTodd, DR TOMPKINS Primary Care Unavailable ROBBIE II, BLOSSOM Consulting Unavailable RAQUEL SHETH Attending Unavailable RAQUEL SHTEH Consulting Unavailable DIAB ., MIKE Consulting Unavailable NEMAIDALICHKAYDEN Consulting Unavailable ROBBIE II, BLOSSOM Consulting Unavailable SHAMMO, DIVYA Primary Care Unavailable RAQUEL SHETH Attending Unavailable RAQUEL SHETH Admitting Unavailable RAQUEL SHETH Consulting Unavailable KENTON CLAROS Consulting Unavailable MD Sylwia Clement Primary Care Provider DO Raul Lopez Attending Provider Raul Lopez Attending Unavailable Sylwia Clement Primary Care Unavailable Jessica, Raul Admitting Unavailable Jessica, Raul Admitting Unavailable Jessica, Raul Attending Unavailable Sylwia Clement Primary Care Unavailable JESSICA, RAUL Woody Attending Unavailable GRAEME CR Referring Unavailable JESSICA, RAUL Woody Attending Unavailable JESSICA, RAUL Woody Attending Unavailable CHOLO CRUZ Attending Unavailable FABIAN MORFIN Attending Unavailable CHOLO CRUZ Attending Unavailable FABIAN MORFIN Attending Unavailable FABIAN MORFIN Attending Unavailable FANTA, Referring Unavailable DESTINY FREDERICK Admitting Unavailab BARBRA Gutierrez Attending Unavailable CHOLO CRUZ Attending Unavailable FABIAN MORFIN Attending Unavailable MERZA NOORALDIN Referring Unavailable AUGUSTIN CLAROS Attending Unavailable Allergies Allergy Classification Reported Allergen(s) Allergy Type Date of Onset Reaction(s) Facility (2 sources) dapagliflozin; Translations: [DAPAGLIFLOZIN] Drug Allergy 06-13-2023 [facility] Repository Medications Current Medications Medication Drug Class(es) Dates Sig (Normalized) Sig (Original) acetaminophen 500 mg oral tablet (2 sources) Start: 4 take 2 tablets by mouth every six hours Acetaminophen (Acetaminophen Extra Strength) 500 mg tablet Active 1000 MG PO Every 6 hours 2023 12:00am Albuterol (2 sources) beta2-Adrenergi c Agonist Start: 4 take 90 ug by inhalation every four to six hours Albuterol Active 90 MCG INHALATION .q4-6 hour 2023 12:00am apixaban 5 mg oral tablet (2 sources) Factor Xa Inhibitor Start: 4 take 1 tablet by mouth twice daily Apixaban (Eliquis) 5 mg tablet Active 5 MG PO Twice daily 2023 12:00am atorvastatin 40 mg oral tablet (2 sources) HMG-CoA Reductase Inhibitor Start: 4 take 40 mg by mouth once daily at bedtime Atorvastatin Active 40 MG PO Daily at bedtime 2023 12:00am busPIRone hydrochloride 15 mg oral tablet (2 sources) Start: 4 take 15 mg by mouth twice daily Buspirone Active 15 MG PO Twice daily 2023 12:00am citalopram 20 mg oral tablet (2 sources) Serotonin Reuptake Inhibitor Start: 4 take 20 mg by mouth once daily in the morning Citalopram Active 20 MG PO Every morning 2023 12:00am hydroCHLOROthiazide 12.5 mg oral tablet (2 sources) Thiazide Diuretic Start: 4 take 12.5 mg by mouth once daily in the morning Hydrochlorothiazide Active 12.5 MG PO Every morning 2023 12:00am losartan potassium 25 mg oral tablet (2 sources) Angiotensin 2 Receptor Ray Start: 4 take 25 mg by mouth once daily in the morning Losartan Active 25 MG PO Every morning 2023 12:00am potassium 75 mg oral tablet (2 sources) Start: 4 take 75 mg by mouth once daily Potassium Active 75 MG PO Daily 2023 12:00am OTC per patient Completed/Discontinued Medications Medication Drug Class(es) Dates Sig (Normalized) Sig (Original) methIMAzole 10 mg oral tablet (2 sources) Thyroid Hormone Synthesis Inhibitor Start: 2023 End: 08-23-2023 take 10 mg by mouth twice daily Methimazole Discontinued 10 MG PO Twice daily 2023 12:00am August 23, 2023 10:45am metoprolol tartrate 50 mg oral tablet (2 sources) beta-Adrenergic Ray Start: 2023 End: 08-23-2023 take 50 mg by mouth twice daily Metoprolol Tartrate Discontinued 50 MG PO Twice daily 2023 12:00am August 23, 2023 10:44am Problems Active Problems Problem Classification Problem Date [...] Translations: [UNSPECIFIED ATRIAL FIBRILLATION] Onset: 10-12-2022 Chronic Cardiac dysrhythmias (2 sources) Palpitations; Translations: [Palpitations] Onset: 09-13-2023 Episodic Chronic obstructive pulmonary disease and bronchiectasis (1 [...] 09-15-2022 Episodic Other aftercare (1 source) Other ad terminal makeup operator (current) drug therapy; Translations: [OTH GEAR AND SPLINE GRINDER CURRENT DRUG THERAPY] Onset: 10-12-2022 Episodic Other [...] septic shock] Onset: 10-12-2022 Episodic Thyroid disorders (2 sources) Thyrotoxicosis, unspecified without thyrotoxic crisis or storm; Translations: [Thyrotoxicosis with diffuse goiter without thyrotoxic crisis or storm] Onset: 10-12-2022 Chronic Unclassified (1 source) ACIDOSIS [...] tachycardia, unspecified; Translations: [Ventricular tachycardia, unspecified] Onset: 05-24-2023 Unclassified (1 source) Other ventricular tachycardia; Translations: [Other ventricular tachycardia] Onset: 11-25-2022 Results Test Name Value Interpretation Reference Range Facility Telemedicineon 09-13-2023 Telemedicine [id number] Mejia,Shahida M 1970 F Date Provider Department Center 09/13/2023 FABIAN DALEY [facility] Family History Problem Relation Age of Onset Other Mother Coronary artery disease Father Other Father Family Status - Relation Status Age at Mother Father Level of Service:27253 PA PHYS/QHP TELEPHONE EVALUATION 5-10 MIN Reason for Visit and Comments: Palpitations [590299] - Discuss icd Normal [facility] Office Visiton 08-29-2023 Follow-up visit [id number] MejiaShahida M 1970 F Date Provider Department Center 08/29/2023 F[facility]IAN DALEY [facility] Family History Problem Relation Age of Onset Other Mother Coronary artery disease Father Other Father Family Status - Relation Status Age at Mother Father Level of Service:59343 PA OFFICE/OUTPATIENT ESTABLISHED LOW MDM 20 MIN Normal [facility] Amphetamine Screen Ql (U)Ord ered By: Arya Metz on 08-23-2023 Amphetamines Ql (U) Negative Negative [facility] Barbiturates [Presence] in U rine by Screen methodOrdered By: Arya Metz on 08-23-2023 Barbiturates Screen Ql (U) Negative Negative [facility] Benzodiazepines Screen Ql (U )Ordered By: Arya Metz on 08-23-2023 Benzodiazepines Ql (U) Negative Negative [facility] Benzoylecgonine [Presence] i n Urine by Screen methodOrdered By: Arya Metz on 08-23-2023 Benzoylecgonine Screen Ql (U) Negative Negative [facility] Calciumon 08-23-2023 Calcium [Mass/Vol] 8.9 mg/dL Normal 8.6-10.3 [facility] Comment on above: Result Comment: PERF ORMED BY: [place] [address] PATHOLOGIST SUPERVISOR BENZENE REFINING RONDA LEYVA M.D. Performed By: #### C A, PTH #### [place] [address] [place] Calcium [Mass/volume] in Ser um or PlasmaOrdered By: Raul Lopez on 08-23-2023 Calcium [Mass/Vol] 8.9 mg/dL 8.6-10.3 [facility] Cannabinoids [Presence] in U rine by Screen methodOrdered By: Arya Metz on 08-23-2023 Cannabinoids Screen Ql (U) Positive Negative [facility] Comment on above: These are unconfirme d results and should not be used for legal purposes. Drug Cut-Off Concentration: AMPH 1000 ng/mL GRACIELA 200 ng/mL ED 200 ng/mL COCM 300 ng/mL OP 300 ng/mL PCP 25 ng/mL THC 20 ng/mL Drug Screen,Urineon 08-23-19 24 Amphetamine Screen,Urine Negative Normal Negative [facility] [place] [facility] Comment on above: Performed By: #### U RDS #### [address] Barbiturate Screen,Urine Negative Normal Negative [facility] [place] [facility] Comment on above: Performed By: #### U RDS #### [address] Benzodiazepines Screen,Urine Negative Normal Negative [facility] [place] [facility] Comment on above: Performed By: #### U RDS #### [address] Cannabinoid Screen,Urine Positive High Negative [facility] [place] [facility] Comment on above: Result Comment: Thes e are unconfirmed results and should not be used for legal purposes. Drug Cut-Off Concentration: AMPH 1000 ng/mL GRACIELA 200 ng/mL ED 200 ng/mL COCM 300 ng/mL OP 300 ng/mL PCP 25 ng/mL THC 20 ng/mL PERFORMED BY: [facility] [address] [place] [address] PATHOLOGIST SUPERVISOR BENZENE REFINING RONDA LEYVA M.D. Performed By: #### U RDS #### [facility] [address] Cocaine Screen,Urine Negative Normal Negative [facility] [place] [facility] Comment on above: Performed By: #### U RDS #### [facility] [address] Opiate Screen,Urine Negative Normal Negative [facility] Comment on above: Performed By: #### U RDS #### [facility] [address] Phencyclidine Screen,Urine Negative Normal Negative [facility] [place] [facility] Comment on above: Performed By: #### U RDS #### [place] [address] [place] Hank 08-23-2023 L Specimen: Received: 08/23/23 Status: OWEN Barrera Num: [id number] Spec Type: Surgical Subm Dr: Raul Lopez DO Tissues: A THYROID - Lobe (RT LOBE/ISTHMUS) B THYROID - Lobe (LT LOBE) Procedures: HE/10, Gross/Micro L5/2 Age/ Patient Sex Location Account Attending Physician Shahida Mejia 53/F [place] [id number] Raul Lopez DO SPEC NUM: RECD: 08/23/23 STATUS: OWEN BARRERA NUM: [id number] PATRICK: 08/23/[address]: Raul Lopez DO ENTERED: 08/23/[address] [facility] [address]: SPEC TYPE: Surgical DEPT: S ORDERED: HE/10, Gross/Micro L5/2 ORDERED: HE/10, Gross/Micro L5/2 Pathological Diagnosis A. Thyroid, right lobe and isthmus, resection: Diffuse thyroid hyperplasia (clinical Graves' disease). B. Thyroid, left lobe, resection: Diffuse thyroid hyperplasia (clinical Graves' disease). Gross Description A.) In formalin labeled right lobe and isthmus is a 16 g intact thyroidectomy. The thyroid measures 5.3 x 4.3 x 2.9 cm. The capsule is intact without adherent skeletal muscle. The isthmus is inked yellow, the anterior side is inked blue, and the posterior side is inked black. The specimen is serially sectioned from superior to inferior to reveal no mass lesions. Local Driver sections are submitted in A1?A5. B.) In formalin labeled left lobe is a 16 g intact thyroidectomy. The thyroid measures 4.7 x 3.3 x 2.5 cm. The capsule is intact without adherent skeletal muscle. The isthmus is inked yellow, the anterior side is inked blue, and the posterior side is inked black. The specimen serially sectioned from superior to inferior to reveal no mass lesions. Local Driver sections are submitted in B1?B5. RG Clinical history: Graves' disease -------- Specimen: [id number] Received: 08/23/23 Status: OWEN Barrera Num: [id number] Spec Type: Surgical Subm Dr: Raul Lopez DO Tissues: A THYROID - Lobe (RT LOBE/ISTHMUS) B THYROID - Lobe (LT LOBE) Procedures: Cresencio, Gross/Micro L5/2 -------- Patient: Shahida Mejia [id number] (Continued) -------- Specimen: Received: 08/23/23 (Continued) Signed (signature on file) Godfrey Krueger MD 08/29/23 1243 -------- Specimen: Received: 08/23/23 Status: LUCYChristina Barrera Num: [id number] Spec Type: Surgical Subm Dr: Raul Lopez DO Tissues: A THYROID - Lobe (RT LOBE/ISTHMUS) B THYROID - Lobe (LT LOBE) Procedures: , Erica/Richelle L5/2 -------- Patient: Shahida Mejia [id number] (Continued) -------- Specimen: Received: 08/23/23 (Continued) CPT Codes 12508t4 -------- -------- Specimen: [id number] Received: 08/23/23-1111 Status: OWEN Sami Num: [id number] Spec Type: Surgical Subm Dr: Raul Lopez DO Tissues: A THYROID - Lobe (RT LOBE/ISTHMUS) B THYROID - Lobe (LT LOBE) Procedures: Erica/Richelle L5/2 -------- Patient: Shahida Mejia [id number] (Continued) -------- Signed (signature on file) Godfrey Krueger MD 04/16/24 1243 Normal [facility] [place] [facility] Opiates [Presence] in Urine by Screen methodOrdered By: Arya Metz on 08-23-2023 Opiates Screen Ql (U) Negative Negative [facility] Parathyrin.intact [Mass/volu me] in Serum or PlasmaOrdered By: Raul Lopez on 08-23-2023 Parathyrin.intact [Mass/Vol] 20.0 pg/mL [facility] Parathyroid Hormone Intacton 08-23-2023 Parathyroid Hormone Intact 20.0 pg/mL Normal [facility] [place] [facility] Comment on above: Order Comment: Comme nt Call to Dr. Lopez Result Comment: PERF ORMED BY: [place] [address] PATHOLOGIST SUPERVISOR BENZENE REFINING RONDA LEYVA M.D. Performed By: #### C A, PTH #### [facility] [address] [place] [address] [facility] Phencyclidine Screen Ql (U)O rdered By: Arya Metz on 08-23-2023 Phencyclidine Ql (U) Negative Negative [facility] Letter (Out)on 08-22-2023 Letter (Out) [id number] Shahida Mejia 1970 F Date Provider Department Center 08/22/2023 FABIAN DALEY [facility] CARD Adame Count Family History Problem Relation Age of Onset Other Mother Coronary artery disease Father Other Father Family Status - Relation Status Age at Mother Father Normal [facility] Basic Metabolic Panelon 04-0 Anion gap [Moles/Vol] 19.0 mmol/L High 6.0-15.0 Th e [facility] [place] [facility] Comment on above: Performed By: #### B MP #### [facility] [address] [place] [address] [place] Calcium [Mass/Vol] 9.7 mg/dL Normal 8.6-10.3 [facility] Comment on above: Result Comment: PERF ORMED BY: [facility] [address] [place] [address] PATHOLOGIST SUPERVISOR BENZENE REFINING RONDA LEYVA M.D. Performed By: #### B MP #### [place] [address] [place] Chloride [Moles/Vol] 101 mmol/L Normal 98-107 [facility] [place] [facility] Comment on above: Performed By: #### B MP #### [address] CO2 [Moles/Vol] 28.5 mmol/L Normal 21.0-31.0 [facility] Comment on above: Performed By: #### B MP #### [address] Creatinine [Mass/Vol] 1.20 mg/dL Normal 0.60-1.20 [facility] [place] [facility] Comment on above: Performed By: #### B MP #### [place] [address] [place] GFR/1.73 sq M.predicted MDRD (S/P/Bld) [Vol rate/Area] 54.127 mL/min/{1.73_m2} Normal [facility] [place] [facility] Comment on above: Performed By: #### B MP #### [address] Glucose [Mass/Vol] 48 mg/dL Off scale low 70-100 [facility] [place] [facility] Comment on above: Result Comment: Crit ical Result Called to and read back by: SEBASTIÁN FERGUSON at: 2023 13:13:02 by:[id number] Random Glucose Reference Range is dependent on time and content of last meal. Glucose of more than 200 mg/dL in a nonstressed, ambulatory subject supports the diagnosis of Diabetes Mellitus. ADA recommended reference range Performed By: #### B MP #### [place] [address] [place] Potassium [Moles/Vol] 3.5 mmol/L Normal 3.5-5.1 [facility] [place] [facility] Comment on above: Performed By: #### B MP #### [place] [address] [place] Sodium [Moles/Vol] 145 mmol/L Normal 136-145 [facility] Comment on above: Performed By: #### B MP #### [facility] [address] Urea nitrogen [Mass/Vol] 17 mg/dL Normal 7-25 [facility] [place] [facility] Comment on above: Performed By: #### B MP #### [address] Calcium [Mass/volume] in Ser um or PlasmaOrdered By: Raul Lopez on 2023 Calcium [Mass/Vol] 9.7 mg/dL 8.6-10.3 [facility] Carbon dioxide, total [Moles /volume] in Serum or PlasmaOrdered By: Raul Lopez on 2023 CO2 [Moles/Vol] 28.5 mmol/L 21.0-31.0 [facility] Chloride [Moles/volume] in S mona or PlasmaOrdered By: Raul Lopez on 2023 Chloride [Moles/Vol] 101 mmol/L 98-107 [facility] Creatinine [Mass/volume] in Serum or PlasmaOrdered By: Raul Lopez on 2023 Creatinine [Mass/Vol] 1.20 mg/dL 0.60-1.20 [facility] ECG 12 lead ECGon 2023 [address] [facility] [place] [address] [place] [address] Electrocardiograph Report Signed Patient: Shahida Mejia MR#: [id number] 6 : 1970 Acct:[id number] Age/Sex: 52 / F ADM Date: 08/16/23 Loc: PS Room: [facility] Attending Dr: Raul Lopez DO Ordering Provider: Raul Lopez DO Date of Service: 08/16/2308/06/1103 ECG/ECG 12 lead ECG: PST Copies to: Test Reason : Blood Pressure : / mmHG Vent. Rate : 057 BPM Atrial Rate : 057 BPM P-R Int : 172 ms QRS Dur : 094 ms QT Int : 480 ms P-R-T Axes : 062 080 076 degrees QTc Int : 467 ms Sinus bradycardia Possible Anterior infarct , age undetermined Diffuse nonspecific ST and T wave changes Abnormal ECG No previous ECGs available Confirmed by JUANITA MOTA [facility], DANIEL ([id number]) on 08/17/2023 2:54:25 PM Referred By: JESSICA Electronically Signed By:DANIEL GRANT MD [facility] Transcribed By: STEFANIE Signed By Daniel Grant MD, [facility] 08/17/23 1454 Normal [facility] [place] [facility] Glucose [Mass/volume] in Ser um or PlasmaOrdered By: Raul Lopez on 2023 Glucose [Mass/Vol] 48 mg/dL 70-100 [facility] Comment on above: Critical Result Call ed to and read back by: SEBASTIÁN FERGUSON at: 2023 13:13:02 by:[id number] recommended reference rangeRandom Glucose Reference Range is dependent on time and content of last meal. Glucose of more than 200 mg/dL in a nonstressed, ambulatory subject supports the diagnosis of Diabetes Mellitus. No Panel InformationOrdered By: Raul Lopez on 2023 Estimated GFR (CKD-EPI) 54.127 mL/Min [facility] Creatinine Clearance (Chem N/A [facility] Potassium [Moles/volume] in Serum or PlasmaOrdered By: Raul Lopez on 2023 Potassium [Moles/Vol] 3.5 mmol/L 3.5-5.1 [facility] Serum or plasma anion gap de terminationOrdered By: Raul Lopez on 2023 Anion gap [Moles/Vol] 19.0 mmol/L 6.0-15.0 [facility] Sodium [Moles/volume] in Ser um or PlasmaOrdered By: Raul Lopez on 2023 Sodium [Moles/Vol] 145 mmol/L 136-145 [facility] Urea nitrogen [Mass/volume] in Serum or PlasmaOrdered By: Raul Lopez on 2023 Urea nitrogen [Mass/Vol] 17 mg/dL 7-25 [facility] 36on 07-13-2023 36 Received fax notification of 6.19 second pause on her event monitor - occurring at 2:39am on 07/13/2023. Report emailed to Cholo Cruz and Dr. Morfin. Report scanned into patient's media supervisor. [facility] 07-11-2023 36 I spoke her endocrinology office yesterday and they told me patient could have thyroid radiation at [facility] [place]. I advised patient yesterday to call [facility] [place] and get scheduled. She calls me back today and says [facility] [place] won't do it now. I confirmed this just now with endocrinology office. She told me Shahida has apt next Monday, 07/20 to discuss radiation in [place] or thyroidectomy. FYI [facility] 3607-05-2023 36 Thank you! [facility] 36 I looked on patient' s daily logs from her event monitor. It has shown no pauses or events since the 5.38 second pause on 06/26/23. I called Shahida and she said she's felt better this past week. She said her adult education professional is referring her to another specialist who manages the surgery and the pill . She is still waiting to hear from the other doctor's office, and has made endocrine aware that she's still waiting. I left a message for adult education professional's office to return my call to hopefully get this referral process going. [facility] 07-04-2023 36 Can we please follow up with the adult education professional to get input on where she is at regarding thyroid levels / management and what their plan of action is , needs to be as aggressively managed as able d/t these significant pauses , they have slowly increased from mostly being 3 seconds to now 4-5 seconds each time [facility] 36on 06-29-2023 36 Regarding 5 second pause on event monitor, which is scanned into media supervisor. Cholo Cruz, JOSR Morfin MD; Gail Burnett MA I believe patient has had meds adjusted 5 second pause , at what point do we say PPM? Just looking for some guidance [facility] Telephoneon 06-29-2023 Telephone [id number] RobertoShahida Ny 1970 F Date Provider Department Center 06/29/[address] [facility] MORFIN CARD [facility] Family History Problem Relation Age of Onset Other Mother Coronary artery disease Father Other Father Family Status - Relation Status Age at Mother Father [facility] 36on 06-15-2023 36 The office received serious reports on patient's event monitor, show 3 pauses greater than 3 seconds each. I called her to see what she was doing during those times. She said she was driving, and did feel lightheaded. Cholo Cruz CNP was made aware of these pauses via text. He advised me to ask the patient to avoid driving if possible. Also advised that if this persists she is to call 911/report to nearest ED. I also let Shahida know that Cholo is wearing to hear back from Dr. Morfin on next steps. I asked her to call me tomorrow by 2-3pm if she hasn't heard from us yet. Patient verbalized understanding. Normal [facility] Office Visiton 06-13-2023 Follow-up visit [id number] Shahida Mejia 1970 F Date Provider Department Center 06/13/2023 [facility]-CHOLO CRUZ [facility] Family History Problem Relation Age of Onset Other Mother Coronary artery disease Father Other Father Family Status - Relation Status Age at Mother Father Level of Service:67087 PA OFFICE/OUTPATIENT ESTABLISHED MOD MDM 30 MIN Normal [facility] 30on 05-26-2023 30 The patient is Moderately Stable - Low risk of patient condition declining or worsening The patient's goals for the shift include comfort The clinical goals for the shift include vss Over the shift, the patient did not make progress toward the following goals. Barriers to progression include . Recommendations to address these barriers include . Normal [facility] ANTI-XA (HEPARIN LEVEL)on HEPARIN UNFRACTIONATED (U/ML) IN PPP BY CHROMOGENIC METHOD 0.56 IU/mL Normal 0.3-0.7 [facility] Comment on above: Order Comment: Check anti-Xa level every 6 hours while on heparin infusion, or per protocol. Result Comment: [place] roxaban and Apixaban will interfere with the anti Xa assay used to monitor UFH and LMWH. Performed By: #### L [id number] ####[facility])[address] [place] [address] HEPARIN UNFRACTIONATED (U/ML) IN PPP BY CHROMOGENIC METHOD 0.71 IU/mL High 0.3-0.7 [facility] Comment on above: Result Comment: [place] roxaban and Apixaban will interfere with the anti Xa assay used to monitor UFH and LMWH. Performed By: #### L [id number] ####[facility])[address] [place] [address] APTTon 05-26-2023 ACTIVATED PARTIAL THROMBOPLASTIN TIME IN PPP BY COAGULATION ASSAY 85.5 Seconds High 25.0-35.0 [facility] Comment on above: Result Comment: Clin ical significance of the APTT is questionable in the presence of heparin. Performed By: #### L [id number] #### [facility] ([facility]) [address] [place] [address] BASIC METABOLIC PANELon 05-15 Anion gap [Moles/Vol] 12 mmol/L Normal 7-20 [facility] Comment on above: Performed By: #### L [id number] ####[facility] ([facility])[address] [place] [address] Calcium [Mass/Vol] 9.8 mg/dL Normal 8.6-10.3 [facility] Comment on above: Performed By: #### L [id number] ####[facility] ([facility])[address] [place] [address] Chloride [Moles/Vol] 108 mmol/L High 98-107 [facility] Comment on above: Performed By: #### L [id number] ####[facility] [place] [address] CO2 [Moles/Vol] 23 mmol/L Normal 21-31 [facility] Comment on above: Performed By: #### L [id number] ####[facility] ([facility] [place] [address] Creatinine [Mass/Vol] 0.85 mg/dL Normal 0.60-1.20 [facility] Comment on above: Performed By: #### L [id number] ####[facility] ([facility] [place] [address] GLOMERULAR FILTRATION RATE ML/MIN/1.73 SQ M.PREDICTED 81.9 mL/min/1.73m*2 Normal >60.0 [facility] Comment on above: Result Comment: The [facility]???s estimated glomerular filtration rate (eGFR) will no [...] of individuals. Performed By: #### L [id number] ####[facility] ([facility])[address] [address] Glucose [Mass/Vol] 85 mg/dL Normal 70-100 [facility] Comment on above: Performed By: #### L [id number] ####[facility] ([facility])[address] [place] [address] Potassium [Moles/Vol] 4.1 mmol/L Normal 3.5-5.1 [facility] Comment on above: Performed By: #### L [id number] ####[facility] ([facility])[address] [address] Sodium [Moles/Vol] 139 mmol/L Normal 136-145 [facility] Comment on above: Performed By: #### L [id number] ####[facility] ([facility])[address] [address] Urea nitrogen [Mass/Vol] 18 mg/dL Normal 7-25 [facility] Comment on above: Performed By: #### L [id number] ####[facility] ([facility])[address] [address] UREA NITROGEN/CREATININE (MASS RATIO) IN SER/PLAS 21.2 Normal [facility] Comment on above: Performed By: #### L [id number] ####[facility] ([place] [address] CONSULTon 05-26-2023 CONSULT - Attestation signed by Fabian Morfin MD at 05/31/2023 8:56 AM By using [...] be an additional personal documentation from me. [place] Electrophysiology Consult Note Reason for Consult: Sinus pauses, PVCs, atrial fibrillation HPI: Shahida Mejia is a 52 y.o. female with history [...] to have atrial flutter since August on quis at home. The patient states she is [...] Abnormal ECG, Arrhythmia, CHF (congestive heart failure) ([facility]), COPD (chronic obstructive pulmonary disease) ([facility]), Hypertension, and NSVT (nonsustained ventricular tachycardia) ([facility]). Surgical History She has a past surgical [...] Value Ventricular Rate 62 Atrial Rate 62 PA Interval 174 QRS DURATION 90 QT Interval 440 QTC CALCULATION(BAZETT) 446 P [place] 36 R-[place] 53 T Wave [place] 69 Impression Normal sinus rhythm Normal ECG No previous ECGs available Confirmed by Fabian Morfin ([id number]) on 05/25/2023 8:31:53 PM Lab Results Component Value Date TROPONINI 0. (more content not included)... Normal [facility] DSon 05-26-2023 DS - Attestation signed by Barbra Little MD at [...] ventricular response (CMS/HCC) [I48.91] Hospital course: Shahida Mejia is an 52 y.o. female who came from [facility] with multiple complaints. Patient was seen in [...] scheduled for November 06, 2023 with the [facility] cardiology service as they have been managing her atrial fibrillation/flutter, CAD and heart failure with preserved ejection fraction. Cardiac history is also notable for sinus pauses and nonsustained V. tach. Patient does have history of hyperthyroidism and takes methimazole, with recent change in February or March from her adult education professional. Patient's heart rate stabilized after electrolyte abnormalities have resolved, continues to have some pauses but only as long as 3 seconds. She was evaluated by cardiology, no current need for pacemaker placement or heart cath at this time. She was discharged and encouraged to follow-up closely with her adult education professional on further adjustment of her medication. Dear Dr. Santino MD, Shahida is advised to follow up with you within 1-2 weeks. Follow-up with: Cardiology and Endocrine Scheduled appointments: Future Appointments Date Time Provider Department Center 06/13/2023 3:40 PM Cholo Cruz NP [facility] Your medication list CONTINUE taking these [...] MAGNESIUM mg/dL (more content not included)... Normal [facility] MAGNESIUMon 05-26-2023 Magnesium [Mass/Vol] 1.6 mg/dL Low 1.9-2.7 [facility] Comment on above: Performed By: #### L [id number] #### [facility] ([facility]) [address] [place] [address] 30on 05-25-2023 30 The patient is Moderately Stable - Low risk of patient condition declining or worsening The patient's goals for the shift include comfort The clinical goals for the shift include VSS; safety Over the shift, the patient did not make progress toward the following goals. Barriers to progression include dizziness. Recommendations to address these barriers include SBA with ambulating. Normal [facility] 30 Daily Case Managemen t Update Multidisciplinary rounds have been completed. Barriers to Discharge: Pending clinical course and improvement in clinical condition. Patient was transferred from [facility] with paroxysmal a-fib/flutter w/ RVR, nonsustained VT's, [...] to her hyperthyroidism. Cardiology will have EP see patient. Patient is from home. Diet: [...] Consultation Consultation and Management 05/25/23 1245 Normal [facility] 30 Problem: Pain - Adul t Goal: [...] and behaviors that affect risk of falls [place] fall precautions as indicated by assessment Educate patient/family on patient safety, including physical limitations Instruct patient to call for assistance with activity based on assessment Modify environment to reduce risk of injury Consider OT/PT consult to assist with strengthening/mobilit y Problem: Discharge Planning Goal: Discharge to home or other facility with appropriate resources Outcome: Progressing Flowsheets (Taken 05/25/2023 0810) Discharge to home or other facility with [...] level of function Outcome: Progressing Flowsheets (Taken 05/25/2023 0810) Return mobility to safest level of function: Assess patient stability and acti (more content not included)... Normal [facility] 30 The patient is Moderately Stable - Low risk of patient condition declining or worsening The patient's goals for the shift include comfort The clinical goals for the shift include vss Over the shift, the patient did not make progress toward the following goals. Barriers to progression include hypokalemia. Recommendations to address these barriers include oral K. Normal [facility] APTTon 05-25-2023 ACTIVATED PARTIAL THROMBOPLASTIN TIME IN PPP BY COAGULATION ASSAY 86.2 Seconds High 25.0-35.0 [facility] Comment on above: Result Comment: Clin ical significance of the APTT is questionable in the presence of heparin. Performed By: #### L [id number] #### [facility] ([facility]) [address] [place] [address] ACTIVATED PARTIAL THROMBOPLASTIN TIME IN PPP BY COAGULATION ASSAY 100.9 Seconds High 25.0-35.0 [facility] Comment on above: Result Comment: Clin ical significance of the APTT is questionable in the presence of heparin. Performed By: #### L [id number] ####[facility] ([facility])[address] [place] [address] ACTIVATED PARTIAL THROMBOPLASTIN TIME IN PPP BY COAGULATION ASSAY 175.6 Seconds Critically high 25.0-35.0 [facility] Comment on above: Order Comment: Check aPTT every 6 hours while on heparin infusion, or per protocol. Result Comment: Clin ical significance of the APTT is questionable in the presence of heparin. Performed By: #### L [id number] ####[facility] ([facility])[address] [place] [address] BASIC METABOLIC PANELon 05-15 Anion gap [Moles/Vol] 8 mmol/L Normal 7-20 [facility] Comment on above: Performed By: #### L [id number] #### [facility] ([facility]) [address] [place] [address] Calcium [Mass/Vol] 9.5 mg/dL Normal 8.6-10.3 [facility] Comment on above: Performed By: #### L [id number] #### [facility] ([facility]) [address] [place] [address] Chloride [Moles/Vol] 112 mmol/L High 98-107 [facility] Comment on above: Performed By: #### L [id number] #### [facility] ([facility]) [address] [place] [address] CO2 [Moles/Vol] 25 mmol/L Normal 21-31 [facility] Comment on above: Performed By: #### L [id number] #### [facility] ([facility]) [address] [place] [address] Creatinine [Mass/Vol] 0.80 mg/dL Normal 0.60-1.20 [facility] Comment on above: Performed By: #### L [id number] #### [facility] ([facility]) [address] [place] [address] GLOMERULAR FILTRATION RATE ML/MIN/1.73 SQ M.PREDICTED 88.0 mL/min/1.73m*2 Normal >60.0 [facility] Comment on above: Result Comment: The [facility]???s estimated glomerular filtration rate (eGFR) will no [...] individuals. Performed By: #### L [id number] #### [facility] ([facility]) [address] [place] [address] Glucose [Mass/Vol] 97 mg/dL Normal 70-100 [facility] Comment on above: Performed By: #### L [id number] #### [facility] ([facility]) [address] [address] Potassium [Moles/Vol] 4.4 mmol/L Normal 3.5-5.1 [facility] Comment on above: Performed By: #### L [id number] #### [facility] ([facility]) [address] [place] [address] Sodium [Moles/Vol] 141 mmol/L Normal 136-145 [facility] Comment on above: Performed By: #### L [id number] #### [facility] ([facility]) [address] [place] [address] Urea nitrogen [Mass/Vol] 19 mg/dL Normal 7-25 [facility] Comment on above: Performed By: #### L [id number] #### [facility] ([facility] [address] [place] [address] UREA NITROGEN/CREATININE (MASS RATIO) IN SER/PLAS 23.8 Normal [facility] Comment on above: Performed By: #### L [id number] #### [facility] ([facility]) [address] [place] [address] CBCon 05-25-2023 Erythrocyte distribution width (RBC) [Ratio] 15.4 % High 11.5-15.0 [facility] Comment on above: Performed By: #### L [id number] #### [facility] ([facility]) [address] [place] [address] ERYTHROCYTE MEAN CORPUSCULAR HEMOGLOBIN CONCENTRATION (G/DL) BY AUTOMATED 31.9 g/dL Low 32.0-35.0 [facility] Comment on above: Performed By: #### L [id number] #### [facility] ([facility] [address] [place] [address] Hematocrit (Bld) [Volume fraction] 32.9 % Low 36.0-48.0 [facility] Comment on above: Performed By: #### L [id number] #### [facility] ([facility]) [address] [place] [address] Hemoglobin (Bld) [Mass/Vol] 10.5 g/dL Low 12.0-15.0 [facility] Comment on above: Performed By: #### L [id number] #### [facility] ([facility]) [address] [place] [address] MCH (RBC) [Entitic mass] 26.1 pg Low 27.0-33.0 [facility] Comment on above: Performed By: #### L [id number] #### [facility] ([facility]) [address] [place] [address] MCV (RBC) [Entitic vol] 81.6 fL Low 82.0-98.0 [facility] Comment on above: Performed By: #### L [id number] #### [facility] ([facility]) [address] [place] [address] PLATELETS (10*3/UL) IN BLOOD AUTOMATED COUNT 213 10*3/uL Normal 150-400 [facility] Comment on above: Performed By: #### L [id number] #### [facility] ([facility]) [address] [place] [address] RBC (Bld) [#/Vol] 4.03 10*6/uL Normal 3.80-5.00 [facility] Comment on above: Performed By: #### L [id number] #### [facility] ([facility]) [address] [place] [address] WBC (Bld) [#/Vol] 5.38 10*3/uL Normal 4.00-10.60 [facility] Comment on above: Performed By: #### L [id number] #### [facility] ([facility]) [address] [place] [address] CONSULTon 05-25-2023 CONSULT - Attestation signed by Perla Esquivel MD at 05/25/2023 3:40 PM I personally saw and examined the patient on the same date of service as resident/fellow Dr Marley. I discussed the findings and therapeutic plan with the resident/fellow Dr Marley. I agree with the documentation, except for any edits/updates below. Teaching Physician's Revisions: Perla Esquivel MD, MPH, [facility], [facility], [facility] Interventional Cardiology Pager Email: [email or web address] Card[facility] Consult Note Reason for Consult: Chest pain and shortness of breath HPI: Shahida Mejia is a 52 y.o. female with medical history of heart failure with preserved ejection fraction, COPD, hypertension, nonsustained ventricular tachycardia seen on event monitor, frequent sinus pauses, who came to the hospital as a transfer from [facility] due to chest pain. Patient reports she [...] Abnormal ECG, Arrhythmia, CHF (congestive heart failure) ([facility]), COPD (chronic obstructive pulmonary disease) (CMS/HCC), Hypertension, and NSVT (nonsustained ventricular tachycardia) (CMS/HCC). Surgical History She has a past surgical [...] image results found. (more content not included)... Normal [facility] MAGNESIUMon 05-25-2023 Magnesium [Mass/Vol] 2.1 mg/dL Normal 1.9-2.7 [facility] Comment on above: Performed By: #### L [id number] #### [facility] ([facility]) [address] [place] [address] T3on 05-25-2023 TRIIODOTHYRONINE (T3) (NG/DL) IN SER/PLAS 247 ng/dL High 80-200 [facility] Comment on above: Result Comment: REFE RENCE INTERVAL: Triiodothyronine, Total (Total T3) Access complete set of age- and/or gender-specific reference intervals for this test in the [facility] ([employer]). Performed By: [employer] [address] [place] [address] Mangle Feeder: Roman Romo MD, PhD CLIA Number: [id number] Performed By: #### L [id number] ####[facility] ([facility])[address] [place] [address] T3, FREEon 05-25-2023 TRIIODOTHYRONINE (T3) FREE (PG/ML) IN SER/PLAS 3.8 pg/mL Normal 2.5-3.9 [facility] Comment on above: Performed By: #### L [id number] #### [facility] ([facility]) [address] [place] [address] T4, FREEon 05-25-2023 THYROXINE (T4) FREE (NG/DL) IN SER/PLAS 0.70 ng/dL Low 0.71-1.85 [facility] Comment on above: Performed By: #### L [id number] #### [facility] ([facility]) [address] [place] [address] THYROID STIMULATING IMMUNOGL OBULINon 05-25-2023 THYROID STIMULATING IMMUNOGLOBULIN >40.00 High <=0.54 [facility] Comment on above: Result Comment: INTE RPRETIVE [...] medical history, and other findings. Performed By: [employer] [address] [place] [address] Mangle Feeder: Roman Romo MD, PhD CLIA Number: [id number] Performed By: #### L [id number] ####[facility] [place] ([place] [address] TROPONIN Ion 05-25-2023 Troponin I.cardiac [Mass/Vol] 0.01 ng/mL Normal 0.00-0.04 [facility] Comment on above: Performed By: #### L [id number] #### [facility] ([facility]) [address] [place] [address] Troponin I.cardiac [Mass/Vol] 0.01 ng/mL Normal 0.00-0.04 [facility] Comment on above: Performed By: #### L [id number] #### [facility] ([facility]) [address] [place] [address] TSH RECEPTOR ANTIBODYon 05-15 TSH RECEPTOR ANTIBODY 23.70 IU/L High <=1.75 [facility] Comment on above: Result Comment: Perf ormed By: [employer] [address] [place] [address] Mangle Feeder: Roman Romo MD, PhD CLIA Number: [id number] Performed By: #### L [id number] ####[facility] ([facility])[address] [place] [address] TSH3 REFLEX TO FT4on 024 THYROTROPIN (MIU/L) IN SER/PLAS BY DETECTION LIMIT <= 0.05 MIU/L <0.01 Low 0.34-5.60 [facility] Comment on above: Performed By: #### L [id number] #### [facility] ([facility]) [address] [place] [address] 30on 05-24-2023 30 The patient is Moderately Stable - Low risk of patient condition declining or worsening The patient's goals for the shift include comfort The clinical goals for the shift include vss Over the shift, the patient did not make progress toward the following goals. Barriers to progression include afib w/ rvr. Recommendations to address these barriers include medication compliance. Normal [facility] APTTon 05-24-2023 ACTIVATED PARTIAL THROMBOPLASTIN TIME IN PPP BY COAGULATION ASSAY 30.0 Seconds Normal 25.0-35.0 [facility] Comment on above: Result Comment: Clin ical significance of the APTT is questionable in the presence of heparin. Performed By: #### L [id number] #### [facility] ([facility]) [address] [place] [address] CBC WITH AUTO DIFFERENTIALon 05-24-2023 Basophils (Bld) [#/Vol] 0.01 10*3/uL Normal 0.00-0.20 [facility] Comment on above: Performed By: #### L [id number] ####[facility] ([facility])[address] [place] [address] Basophils/100 WBC (Bld) 0.2 % Normal 0.0-1.0 [facility] Comment on above: Performed By: #### L [id number] ####[facility] ([facility])[address] [place] [address] Eosinophils (Bld) [#/Vol] 0.03 10*3/uL Normal 0.00-0.50 [facility] Comment on above: Performed By: #### L [id number] ####[facility] ([facility])[address] [place] [address] Eosinophils/100 WBC (Bld) 0.6 % Normal 0.0-6.0 [facility] Comment on above: Performed By: #### L [id number] ####[facility] ([facility])[address] [place] [address] Erythrocyte distribution width (RBC) [Ratio] 15.4 % High 11.5-15.0 [facility] Comment on above: Performed By: #### L [id number] ####[facility] ([facility])[address] [place] [address] ERYTHROCYTE MEAN CORPUSCULAR HEMOGLOBIN CONCENTRATION (G/DL) BY AUTOMATED 32.7 g/dL Normal 32.0-35.0 [facility] Comment on above: Performed By: #### L [id number] ####[facility] [place] [address] Hematocrit (Bld) [Volume fraction] 33.3 % Low 36.0-48.0 [facility] Comment on above: Performed By: #### L [id number] ####[facility] ([facility])[address] [place] [address] Hemoglobin (Bld) [Mass/Vol] 10.9 g/dL Low 12.0-15.0 [facility] Comment on above: Performed By: #### L [id number] ####[facility] ([facility])[address] [place] [address] Immature granulocytes (Bld) [#/Vol] 0.01 10*3/uL Normal 0.00-0.20 [facility] Comment on above: Performed By: #### L [id number] ####[facility] [place] [address] Immature granulocytes/100 WBC (Bld) 0.2 % Normal 0.0-1.0 [facility] Comment on above: Performed By: #### L [id number] ####[facility] ([facility])[address] [place] [address] Lymphocytes (Bld) [#/Vol] 2.12 10*3/uL Normal 1.20-4.00 [facility] Comment on above: Performed By: #### L [id number] ####[facility] ([facility])[address] [place] [address] Lymphocytes/100 WBC (Bld) 43.0 % Normal 20.0-45.0 [facility] Comment on above: Performed By: #### L [id number] ####[facility] ([facility])[address] [place] [address] MCH (RBC) [Entitic mass] 26.1 pg Low 27.0-33.0 [facility] Comment on above: Performed By: #### L [id number] ####[facility] (BEAKER)[address] [place] [address] MCV (RBC) [Entitic vol] 79.9 fL Low 82.0-98.0 [facility] Comment on above: Performed By: #### L [id number] ####[facility] (BEAKER)[address] [place] [address] Monocytes (Bld) [#/Vol] 0.31 10*3/uL Normal 0.10-1.00 [facility] Comment on above: Performed By: #### L [id number] ####[facility] (BEAKER)[address] [place] [address] Monocytes/100 WBC (Bld) 6.3 % Normal 5.0-12.0 [facility] Comment on above: Performed By: #### L [id number] ####[facility] [place] [address] Neutrophils (Bld) [#/Vol] 2.45 10*3/uL Normal 1.60-7.60 [facility] Comment on above: Performed By: #### L [id number] ####[facility] ([facility])[address] [place] [address] Neutrophils/100 WBC (Bld) 49.7 % Normal 40.0-72.0 [facility] Comment on above: Performed By: #### L [id number] ####[facility] ([facility])[address] [place] [address] NRBC (PER 100 WBCS) BY AUTOMATED COUNT 0.0 % Normal 0 [facility] Comment on above: Performed By: #### L [id number] ####[facility] [place] [address] PLATELETS (10*3/UL) IN BLOOD AUTOMATED COUNT 237 10*3/uL Normal 150-400 [facility] Comment on above: Performed By: #### L [id number] ####[facility] ([facility] [place] [address] RBC (Bld) [#/Vol] 4.17 10*6/uL Normal 3.80-5.00 [facility] Comment on above: Performed By: #### L [id number] ####[facility] ([facility] [place] [address] WBC (Bld) [#/Vol] 4.93 10*3/uL Normal 4.00-10.60 [facility] Comment on above: Performed By: #### L [id number] ####[facility] ([facility] [place] [address] COMPREHENSIVE METABOLIC PANE Hank 05-24-2023 Albumin [Mass/Vol] 4.2 g/dL Normal 3.5-5.7 [facility] Comment on above: Performed By: #### L [id number] ####[facility] ([facility])[address] [place] [address] ALP [Catalytic activity/Vol] 149 U/L High 34-104 [facility] Comment on above: Performed By: #### L [id number] ####[facility] ([facility])[address] [place] [address] ALT [Catalytic activity/Vol] 25 U/L Normal 7-52 [facility] Comment on above: Performed By: #### L [id number] ####[facility] ([facility])[address] [place] [address] Anion gap [Moles/Vol] 8 mmol/L Normal 7-20 [facility] Comment on above: Performed By: #### L [id number] ####[facility] ([facility])[address] [place] [address] AST [Catalytic activity/Vol] 15 U/L Normal 13-39 [facility] Comment on above: Performed By: #### L [id number] ####[facility] ([facility])[address] [place] [address] Bilirubin [Mass/Vol] 0.4 mg/dL Normal 0.3-1.0 [facility] Comment on above: Performed By: #### L [id number] ####[facility] ([facility])[address] [place] [address] Calcium [Mass/Vol] 9.6 mg/dL Normal 8.6-10.3 [facility] Comment on above: Performed By: #### L [id number] ####[facility] ([facility])[address] [place] [address] Chloride [Moles/Vol] 111 mmol/L High 98-107 [facility] Comment on above: Performed By: #### L [id number] ####[facility] ([facility])[address] [place] [address] CO2 [Moles/Vol] 26 mmol/L Normal 21-31 [facility] Comment on above: Performed By: #### L [id number] ####[facility] ([facility])[address] [place] [address] Creatinine [Mass/Vol] 0.85 mg/dL Normal 0.60-1.20 [facility] Comment on above: Performed By: #### L [id number] ####[facility] ([facility])[address] [place] [address] GLOMERULAR FILTRATION RATE ML/MIN/1.73 SQ M.PREDICTED 81.9 mL/min/1.73m*2 Normal >60.0 [facility] Comment on above: Result Comment: The [facility]???s estimated glomerular filtration rate (eGFR) will no [...] group of individuals. Performed By: #### L [id number] ####[facility] ([facility])[address] [place] [address] Glucose [Mass/Vol] 132 mg/dL High 70-100 [facility] Comment on above: Performed By: #### L [id number] ####[facility] ([facility])[address] [place] [address] Potassium [Moles/Vol] 3.3 mmol/L Low 3.5-5.1 [facility] Comment on above: Performed By: #### L [id number] ####[facility] ([facility])[address] [place] [address] Protein [Mass/Vol] 6.3 g/dL Normal 6.0-8.3 [facility] Comment on above: Performed By: #### L [id number] ####[facility] ([facility])[address] [place] [address] Sodium [Moles/Vol] 142 mmol/L Normal 136-145 [facility] Comment on above: Performed By: #### L [id number] ####[facility] ([facility])[address] [place] [address] Urea nitrogen [Mass/Vol] 22 mg/dL Normal 7-25 [facility] Comment on above: Performed By: #### L [id number] ####[facility] ([facility])[address] [place] [address] UREA NITROGEN/CREATININE (MASS RATIO) IN SER/PLAS 25.9 Normal [facility] Comment on above: Performed By: #### L [id number] ####[facility] ([facility])[address] [place] [address] LACTIC ACID WITH 4 HOUR REFL EXon 05-24-2023 LACTATE (MMOL/L) IN SER/PLAS 0.9 mmol/L Normal 0.5-2.2 [facility] Comment on above: Performed By: #### L [id number] #### [facility] ([facility]) [address] [place] [address] MAGNESIUMon 05-24-2023 Magnesium [Mass/Vol] 1.6 mg/dL Low 1.9-2.7 [facility] Comment on above: Performed By: #### L [id number] #### [facility] ([facility]) [address] [place] [address] PHOSPHORUSon 05-24-2023 Magnesium [Mass/Vol] 2.1 mg/dL Low 2.5-5.0 [facility] Comment on above: Performed By: #### L [id number] #### [facility] ([facility]) [address] [place] [address] PROTIME-INRon 05-24-2023 INR IN PPP BY COAGULATION ASSAY 1.19 High 0.90-1.10 [facility] Comment on above: Result Comment: ACCC P [...] 1995;[id number]. Performed By: #### L [id number] #### [facility] [address] [place] [address] PROTHROMBIN TIME (PT) IN PPP BY COAGULATION ASSAY 15.1 Seconds High 12.3-14.8 [facility] Comment on above: Performed By: #### L [id number] #### [facility] [address] [place] [address] TROPONIN Ion 05-24-2023 Troponin I.cardiac [Mass/Vol] 0.01 ng/mL Normal 0.00-0.04 [facility] Comment on above: Performed By: #### L [id number] #### [facility] ([facility]) [address] [place] [address] Office Visiton 04-18-2023 Follow-up visit [id number] Deshawn Mejianathalie Ny 1970 Date Provider Department Center 04/18/2023 FABIAN DALEY [facility] Family History Problem Relation Age of Onset Other Mother Coronary artery disease Father Other Father Family Status - Relation Status Age at Mother Father Level of Service:30127 PA OFFICE/OUTPATIENT ESTABLISHED MOD MDM 30-39 MIN Normal [facility] Orders Onlyon 04-18-2023 Orders Only [id number] Deshawn Mejianathalie Ny 1970 Date Provider Department Center 04/18/2023 OTONIEL FOY [facility] Family History Problem Relation Age of Onset Other Mother Coronary artery disease Father Other Father Family Status - Relation Status Age at Mother Father Normal [facility] Office Visiton 03-07-2023 Follow-up visit [id number] Shahida Mejia 1970 Date Provider Department Center 03/07/2023 FABIAN DALEY [facility] Family History Problem Relation Age of Onset Other Mother Coronary artery disease Father Other Father Family Status - Relation Status Age at Mother Father Level of Service:65008 PA OFFICE/OUTPATIENT NEW HIGH MDM 60-74 MINUTES Normal [facility] Office Visiton 01-09-2023 Follow-up visit [id number] Shahida Mejia 1970 Date Provider Department Center 01/09/2023 CHOLO THIBODEAUX [facility] No family history on file Level of Service:90321 PA OFFICE/OUTPATIENT ESTABLISHED MOD MDM 30-39 MIN Normal [facility] Office Visiton 11-25-2022 Follow-up visit [id number] Shahida Mejia 1970 F Date Provider Department Center 11/25/2022 CHOLO THIBODEAUX [facility] No family history on file Level of Service:37026 PA OFFICE/OUTPATIENT ESTABLISHED MOD MDM 30-39 MIN Normal [facility] 37on 10-28-2022 37 -Weigh yourself daily, if you gain more than 2 Ibs in one day or 5 Ibs in 1 week take Lasix for 3 days and let us know -Start Farxiga 10 mg daily -Stop taking Losartan-hydrochlorot hiazide -Start Losartan 100 mg daily -Check labs in 1 week after starting Farxiga Normal [facility] Office Visiton 10-28-2022 Follow-up visit [id number] Shahida Mejia 1970 F Date Provider Department Center 10/28/2022 [id number] CLAROS CARD [facility] No family history on file Level of Service:27563 PA OFFICE/OUTPATIENT ESTABLISHED MOD MDM 30-39 MIN Reason for Visit and Comments: New Patient [632] - New pt here for Hospital Follow up Holter motion results Normal [facility] BNPon 10-09-2022 Natriuretic peptide B (Bld) [Mass/Vol] 60050.0 pg/mL Critically high <=900.0 [facility] Comment on above: Performed By: #### M G, BNP, CMP #### [facility] [address] [place] [address] Dr. Celina Venegas CBC AUTO DIFFon 10-09-2022 BASO # 0.0 103/ul Normal 0.0-0.1 [facility] Comment on above: Performed By: #### H STROPN #### [facility] [address] [place] [address] Dr. Celina Venegas Basophils/100 WBC (Bld) 0.1 % Critically low 0.2-2.0 [facility] Comment on above: Performed By: #### H STROPN #### [facility] [address] [place] [address] Dr. Celina Venegas EO # 0.0 103/ul Normal 0.0-0.7 [facility] Comment on above: Performed By: #### H STROPN #### [facility] [address] [place] [address] Dr. Celina Venegas Eosinophils/100 WBC (Bld) 0.1 % Critically low 0.9-7.0 [facility] Comment on above: Performed By: #### H STROPN #### [facility] [address] [place] [address] Dr. Celina Venegas Erythrocyte distribution width (RBC) [Ratio] 14.9 % Normal 11.0-15.0 [facility] Comment on above: Performed By: #### H STROPN #### [facility] [address] [place] [address] Dr. Celina Venegas Hematocrit (Bld) [Volume fraction] 28.5 % Critically low 36.0-48.0 [facility] Comment on above: Performed By: #### H STROPN #### [facility] [address] [place] [address] Dr. Celina Venegas Hemoglobin (Bld) [Mass/Vol] 9.1 g/dL Critically low 12.0-16.0 [facility] Comment on above: Performed By: #### H STROPN #### [facility] [address] [place] [address] Dr. Celina Venegas IG # 0.08 10e3/ul Critically high 0.00-0.03 [facility] Comment on above: Performed By: #### H STROPN #### [facility] [address] [place] [address] Dr. Celina Venegas IG % 1.2 % Critically high 0.0-0.[address] [facility] Comment on above: Performed By: #### H STROPN #### [facility] [address] [place] [address] Dr. Celina Venegas LYMPH # 1.8 103/ul Normal 1.2-3.8 [facility] Comment on above: Performed By: #### H STROPN #### [facility] [address] [place] [address] Dr. Celina Venegas Lymphocytes/100 WBC (Bld) 26.7 % Normal 20.5-60.0 [facility] Comment on above: Performed By: #### H STROPN #### [facility] [address] [place] [address] Dr. Celina Venegas MANUAL DIFF REQ NO Normal [facility] Comment on above: Performed By: #### H STROPN #### [facility] [address] [place] [address] Dr. Celina Venegas MCH (RBC) [Entitic mass] 25.0 pg Critically low 26.7-34.0 [facility] Comment on above: Performed By: #### H STROPN #### [facility] [address] [place] [address] Dr. Celina Venegas MCHC (RBC) [Mass/Vol] 31.9 g/dL Normal 29.9-35.2 [facility] Comment on above: Performed By: #### H STROPN #### [facility] [address] [place] [address] Dr. Celina Venegas MCV (RBC) [Entitic vol] 78.3 fL Critically low 81.0-99. 0 [facility] Comment on above: Performed By: #### H STROPN #### [facility] [address] [place] [address] Dr. Cleina Venegas MONO # 0.4 103/ul Normal 0.3-0.8 [facility] Comment on above: Performed By: #### H STROPN #### [facility] [address] [place] [address] Dr. Celina Venegas Monocytes/100 WBC (Bld) 5.5 % Normal 1.7-12.0 [facility] Comment on above: Performed By: #### H STROPN #### [facility] [address] [place] [address] Dr. Celina Venegas NEUT # 4.5 103/ul Normal 1.4-6.5 [facility] Comment on above: Performed By: #### H STROPN #### [facility] [address] [place] [address] Dr. Celina Venegas Neutrophils/100 WBC (Bld) 66.4 % Normal 43.0-75.0 [facility] Comment on above: Performed By: #### H STROPN #### [facility] [address] [place] [address] Dr. Celina Venegas Platelet mean volume (Bld) [Entitic vol] 10.4 fL Normal 9.5-13.5 [facility] Comment on above: Performed By: #### H STROPN #### [facility] [address] [address] [address] Celina Venegas PLT 219 103/ul Normal 150-450 [facility] Comment on above: Performed By: #### H STROPN #### [facility] [address] [address] [address] Celina Venegas RBC 3.64 106/ul Critically low 4.20-5.40 [facility] Comment on above: Performed By: #### H STROPN #### [facility] [address] [address] [address] Celina Venegas WBC 6.8 103/ul Normal 4.0-11.0 [facility] Comment on above: Performed By: #### H STROPN #### [facility] [address] [place] [address] Dr. Celina Venegas MAGNESIUMon 10-09-2022 Magnesium [Mass/Vol] 1.7 mg/dL Critically low 1.8-2.4 [facility] Comment on above: Performed By: #### M G, BNP, CMP #### [facility] [address] [place] [address] Dr. Celina Venegas POINT OF CARE GLUCOSEon 09-13 Glucose [Mass/Vol] 120 mg/dL Critically high 74-106 [facility] Comment on above: Performed By: #### H STROPN #### [facility] [address] [place] [address] Dr. Celina Venegas POTASSIUMon 10-09-2022 Potassium [Moles/Vol] 3.6 mmol/L Normal 3.5-5.1 [facility] Comment on above: Performed By: #### M G, BNP, CMP #### [facility] [address] [place] [address] Dr. Celina Venegas PROF 14(COMP METB)on 023 Albumin [Mass/Vol] 2.6 g/dL Critically low 3.4-5.0 [facility] Comment on above: Performed By: #### M G, BNP, CMP #### [facility] [address] [place] [address] Dr. Celina Venegas Albumin/Globulin [Mass ratio] 0.8 {ratio} Normal [facility] Comment on above: Performed By: #### M G, BNP, CMP #### [facility] [address] [place] [address] Dr. Celina Venegas ALP [Catalytic activity/Vol] 112 U/L Normal 46-116 [facility] Comment on above: Performed By: #### M G, BNP, CMP #### [facility] [address] [place] [address] Dr. Celina Venegas ALT [Catalytic activity/Vol] 16 U/L Normal 14-59 [facility] Comment on above: Performed By: #### M G, BNP, CMP #### [facility] [address] [place] [address] Dr. Celina Venegas Anion gap [Moles/Vol] 10.7 mmol/L Normal [facility] Comment on above: Performed By: #### M G, BNP, CMP #### [facility] [address] [place] [address] Dr. Celina Venegas AST [Catalytic activity/Vol] 13 U/L Critically low 15-37 [facility] Comment on above: Performed By: #### M G, BNP, CMP #### [facility] [address] [place] [address] Dr. Celina Venegas Bilirubin [Mass/Vol] 0.3 mg/dL Normal 0.2-1.0 [facility] Comment on above: Performed By: #### M G, BNP, CMP #### [facility] [address] [place] [address] Dr. Celina Venegas Calcium [Mass/Vol] 8.6 mg/dL Normal 8.5-10.1 [facility] Comment on above: Performed By: #### M G, BNP, CMP #### [facility] [address] [place] [address] Dr. Celina Venegas Chloride [Moles/Vol] 109 mmol/L Critically high 98-107 [facility] Comment on above: Performed By: #### M G, BNP, CMP #### [facility] [address] [place] [address] Dr. Celina Venegas CO2 [Moles/Vol] 26.5 mmol/L Normal 21.0-32.0 [facility] Comment on above: Performed By: #### M G, BNP, CMP #### [facility] [address] [address] [address] Celina Venegas Creatinine [Mass/Vol] 0.88 mg/dL Normal 0.55-1.02 [facility] Comment on above: Performed By: #### M G, BNP, CMP #### [facility] [address] [address] [address] Celina Venegas EGFR-AF GUINEAN >60 Normal >=60 [facility] Comment on above: Performed By: #### M G, BNP, CMP #### [facility] [address] [address] [address] Celina Venegas EGFR-NON AF GUINEAN >60 Normal >=60 [facility] Comment on above: Performed By: #### M G, BNP, CMP #### [facility] [address] [address] [address] Celina Venegas Globulin (S) [Mass/Vol] 3.4 g/dL Normal [facility] Comment on above: Performed By: #### M G, BNP, CMP #### [facility] [address] [address] [address] Celina Venegas Glucose [Mass/Vol] 84 mg/dL Normal 74-106 [facility] Comment on above: Performed By: #### M G, BNP, CMP #### [facility] [address] [address] [address] Celina Venegas Potassium [Moles/Vol] 2.2 mmol/L Critically low 3.5-5.1 [facility] Comment on above: Performed By: #### M G, BNP, CMP #### [facility] [address] [address] [address] Celina Venegas Protein [Mass/Vol] 6.0 g/dL Critically low 6.4-8.2 [facility] Comment on above: Performed By: #### M G, BNP, CMP #### [facility] [address] [place] [address] Dr. Celina Venegas Sodium [Moles/Vol] 142 mmol/L Normal 136-145 [facility] Comment on above: Performed By: #### M G, BNP, CMP #### [facility] [address] [place] [address] Dr. Celina Venegas Urea nitrogen [Mass/Vol] 24.0 mg/dL Critically high 7.0-18.0 [facility] Comment on above: Performed By: #### M G, BNP, CMP #### [facility] [address] [place] [address] Dr. Celina Venegas Urea nitrogen/Creatinine [Mass ratio] 27.3 mg/mg Normal [facility] Comment on above: Performed By: #### M Lance BNP, CMP #### [facility] [address] [place] [address] Dr. Celina Venegas PROTIMEon 10-09-2022 INR Coag (PPP) [Relative time] 1.04 {INR} Normal [facility] Comment on above: Performed By: #### B [id number] #### [facility] [address] [place] [address] Dr. Celina Venegas INR GUIDELINES SEE BELOW Normal [facility] Comment on above: Result Comment: CAESAR RED INR: 2.0 - 3.0 CONDITIONS NOT LISTED BELOW 2.5 - 3.5 FOR PROSTHETIC HEART VALVE REPLACEMENT 2.5 - 3.5 RECURRENT THROMBOSIS Performed By: #### B [id number] #### [facility] [address] [place] [address] Dr. Celina Venegas PT Coag (PPP) [Time] 11.0 s Normal 9.0-11.6 [facility] Comment on above: Performed By: #### B [id number] #### [facility] [address] [place] [address] Dr. Celina Venegas PTTon 10-09-2022 aPTT Coag (Bld) [Time] 23.9 s Normal 22.3-36.2 Th [facility] Comment on above: Performed By: #### B [id number] #### [facility] [address] [place] [address] Dr. Celina Venegas BNPon 10-08-2022 Natriuretic peptide B (Bld) [Mass/Vol] 34268.0 pg/mL Critically high <=900.0 [facility] Comment on above: Performed By: #### P REG #### [facility] [address] [place] [address] Dr. Celina Venegas CBC AUTO DIFFon 10-08-2022 BASO # 0.0 103/ul Normal 0.0-0.1 [facility] Comment on above: Performed By: #### B [id number] #### [facility] [address] [place] [address] Dr. Celina Venegas Basophils/100 WBC (Bld) 0.1 % Critically low 0.2-2.0 [facility] Comment on above: Performed By: #### B [id number] #### [facility] [address] [place] [address] Dr. Celina Venegas EO # 0.0 103/ul Normal 0.0-0.7 [facility] Comment on above: Performed By: #### B [id number] #### [facility] [address] [place] [address] Dr. Celina Venegas Eosinophils/100 WBC (Bld) 0.0 % Critically low 0.9-7.0 [facility] Comment on above: Performed By: #### B [id number] #### [facility] [address] [place] [address] Dr. Celina Venegas Erythrocyte distribution width (RBC) [Ratio] 14.6 % Normal 11.0-15.0 [facility] Comment on above: Performed By: #### B [id number] #### [facility] [address] [place] [address] Dr. Celina Venegas Hematocrit (Bld) [Volume fraction] 26.6 % Critically low 36.0-48.0 [facility] Comment on above: Performed By: #### B [id number] #### [facility] [address] [place] [address] Dr. Celina Venegas Hemoglobin (Bld) [Mass/Vol] 8.4 g/dL Critically low 12.0-16.0 [facility] Comment on above: Performed By: #### B [id number] #### [facility] [address] [place] [address] Dr. Celina Venegas IG # 0.03 10e3/ul Normal 0.00-0.03 [facility] Comment on above: Performed By: #### B [id number] #### [facility] [address] [place] [address] Dr. Celina Venegas IG % 0.4 % Normal 0.0-0.5 [facility] Comment on above: Performed By: #### B [id number] #### [facility] [address] [place] [address] Dr. Celina Venegas LYMPH # 0.7 103/ul Critically low 1.2-3.8 [facility] Comment on above: Performed By: #### B [id number] #### [facility] [address] [place] [address] Dr. Celina Venegas Lymphocytes/100 WBC (Bld) 10.3 % Critically low 20.5-60.0 [facility] Comment on above: Performed By: #### B [id number] #### [facility] [address] [place] [address] Dr. Celina Venegas MANUAL DIFF REQ NO Normal [facility] Comment on above: Performed By: #### B [id number] #### [facility] [address] [place] [address] Dr. Celina Venegas MCH (RBC) [Entitic mass] 25.2 pg Critically low 26.7-34.0 [facility] Comment on above: Performed By: #### B [id number] #### [facility] [address] [place] [address] Dr. Celina Venegas MCHC (RBC) [Mass/Vol] 31.6 g/dL Normal 29.9-35.2 [facility] Comment on above: Performed By: #### B [id number] #### [facility] [address] [place] [address] Dr. Celina Venegas MCV (RBC) [Entitic vol] 79.9 fL Critically low 81.0-99. 0 [facility] Comment on above: Performed By: #### B [id number] #### [facility] [address] [place] [address] Dr. Celina Venegas MONO # 0.3 103/ul Normal 0.3-0.8 [facility] Comment on above: Performed By: #### B [id number] #### [facility] [address] [place] [address] Dr. Celina Venegas Monocytes/100 WBC (Bld) 4.9 % Normal 1.7-12.0 [facility] Comment on above: Performed By: #### B [id number] #### [facility] [address] [place] [address] Dr. Celina Venegas NEUT # 5.8 103/ul Normal 1.4-6.5 [facility] Comment on above: Performed By: #### B [id number] #### [facility] [address] [place] [address] Dr. Celina Venegas Neutrophils/100 WBC (Bld) 84.3 % Critically high 43.0-75.0 [facility] Comment on above: Performed By: #### B [id number] #### [facility] [address] [place] [address] Dr. Celina Venegas Platelet mean volume (Bld) [Entitic vol] 10.5 fL Normal 9.5-13.5 [facility] Comment on above: Performed By: #### B [id number] #### [facility] [address] [place] [address] Dr. Celina Venegas PLT 207 103/ul Normal 150-450 [facility] Comment on above: Performed By: #### B [id number] #### [facility] [address] [place] [address] Dr. Celina Venegas RBC 3.33 106/ul Critically low 4.20-5.40 [facility] Comment on above: Performed By: #### B [id number] #### [facility] [address] [place] [address] Dr. Celina Venegas WBC 6.9 103/ul Normal 4.0-11.0 [facility] Comment on above: Performed By: #### B [id number] #### [facility] [address] [place] [address] Dr. Celina Venegas MAGNESIUMon 10-08-2022 Magnesium [Mass/Vol] 1.8 mg/dL Normal 1.8-2.4 [facility] Comment on above: Performed By: #### P REG #### [facility] [address] [place] [address] Dr. Celina Venegas POINT OF CARE GLUCOSEon 09-13 Glucose [Mass/Vol] 180 mg/dL Critically high 74-106 [facility] Comment on above: Performed By: #### M G, BNP, CMP #### [facility] [address] [place] [address] Dr. Celina Venegas Glucose [Mass/Vol] 116 mg/dL Critically high 74-106 [facility] Comment on above: Performed By: #### M G, BNP, CMP #### [facility] [address] [place] [address] Dr. Celina Venegas PROF 14(COMP METB)on 023 Albumin [Mass/Vol] 2.4 g/dL Critically low 3.4-5.0 [facility] Comment on above: Performed By: #### P REG #### [facility] [address] [place] [address] Dr. Celina Venegas Albumin/Globulin [Mass ratio] 0.7 {ratio} Normal [facility] Comment on above: Performed By: #### P REG #### [facility] [address] [place] [address] Dr. Celina Venegas ALP [Catalytic activity/Vol] 124 U/L Critically high 46-116 [facility] Comment on above: Performed By: #### P REG #### [facility] [address] [place] [address] Dr. Celina Venegas ALT [Catalytic activity/Vol] 17 U/L Normal 14-59 [facility] Comment on above: Performed By: #### P REG #### [facility] [address] [address] [address] Celina Venegas Anion gap [Moles/Vol] 10.6 mmol/L Normal [facility] Comment on above: Performed By: #### P REG #### [facility] [address] [address] [address] Celina Venegas AST [Catalytic activity/Vol] 14 U/L Critically low 15-37 [facility] Comment on above: Performed By: #### P REG #### [facility] [address] [address] [address] Celina Venegas Bilirubin [Mass/Vol] 0.2 mg/dL Normal 0.2-1.0 [facility] Comment on above: Performed By: #### P REG #### [facility] [address] [address] [address] Celina Venegas Calcium [Mass/Vol] 9.1 mg/dL Normal 8.5-10.1 [facility] Comment on above: Performed By: #### P REG #### [facility] [address] [address] [address] Celina Venegas Chloride [Moles/Vol] 110 mmol/L Critically high 98-107 [facility] Comment on above: Performed By: #### P REG #### [facility] [address] [address] [address] Celina Venegas CO2 [Moles/Vol] 26.8 mmol/L Normal 21.0-32.0 [facility] Comment on above: Performed By: #### P REG #### [facility] [address] [address] [address] Celina Venegas Creatinine [Mass/Vol] 0.81 mg/dL Normal 0.55-1.02 [facility] Comment on above: Performed By: #### P REG #### [facility] [address] [address] [address] Celina Venegas EGFR-AF GUINEAN >60 Normal >=60 [facility] Comment on above: Performed By: #### P REG #### [facility] [address] [address] [address] Celina Venegas EGFR-NON AF GUINEAN >60 Normal >=60 [facility] Comment on above: Performed By: #### P REG #### [facility] [address] [place] [address] Dr. Celina Venegas Globulin (S) [Mass/Vol] 3.6 g/dL Normal [facility] Comment on above: Performed By: #### P REG #### [facility] [address] [address] [address] Celina Venegas Glucose [Mass/Vol] 145 mg/dL Critically high 74-106 [facility] Comment on above: Performed By: #### P REG #### [facility] [address] [place] [address] Dr. Celina Venegas Potassium [Moles/Vol] 3.4 mmol/L Critically low 3.5-5.1 [facility] Comment on above: Performed By: #### P REG #### [facility] [address] [place] [address] Dr. Celina Venegas Protein [Mass/Vol] 6.0 g/dL Critically low 6.4-8.2 [facility] Comment on above: Performed By: #### P REG #### [facility] [address] [place] [address] Dr. Celina Venegas Sodium [Moles/Vol] 144 mmol/L Normal 136-145 [facility] Comment on above: Performed By: #### P REG #### [facility] [address] [place] [address] Dr. Celina Venegas Urea nitrogen [Mass/Vol] 20.0 mg/dL Critically high 7.0-18.0 [facility] Comment on above: Performed By: #### P REG #### [facility] [address] [place] [address] Dr. Celina Venegas Urea nitrogen/Creatinine [Mass ratio] 24.7 mg/mg Normal [facility] Comment on above: Performed By: #### P REG #### [facility] [address] [place] [address] Dr. Celina Venegas PROTIMEon 10-08-2022 INR Coag (PPP) [Relative time] 1.04 {INR} Normal [facility] Comment on above: Performed By: #### H STROPN #### [facility] [address] [place] [address] Dr. Celina Venegas INR GUIDELINES SEE BELOW Normal [facility] Comment on above: Result Comment: CAESAR RED INR: 2.0 - 3.0 CONDITIONS NOT LISTED BELOW 2.5 - 3.5 FOR PROSTHETIC HEART VALVE REPLACEMENT 2.5 - 3.5 RECURRENT THROMBOSIS Performed By: #### H STROPN #### [facility] [address] [place] [address] Dr. Celina Venegas PT Coag (PPP) [Time] 11.0 s Normal 9.0-11.6 [facility] Comment on above: Performed By: #### H STROPN #### [facility] [address] [place] [address] Dr. Celina Venegas PTTon 10-08-2022 aPTT Coag (Bld) [Time] 26.8 s Normal 22.3-36.2 [facility] Comment on above: Performed By: #### H STROPN #### [facility] [address] [place] [address] Dr. Celina Venegas XR CHEST 1 Von [...] by: MYCHAL STOREY Date: 2022-10-08 05:51 Normal [facility] BLOOD GASES BTYon 10-07-2022 02 MODE VENTILATOR Normal [facility] Comment on above: Performed By: #### M G, BNP, CMP #### [facility] [address] [place] [address] Dr. Celina Venegas ALLENS TEST Positive Normal [facility] Comment on above: Performed By: #### M G, BNP, CMP #### [facility] [address] [address] [address] Celina Venegas Base excess Calc (Bld) [Moles/Vol] -6.1000 mmol/L Critically low -2.0-2.0 [facility] Comment on above: Performed By: #### M G, BNP, CMP #### [facility] [address] [address] [address] Celina Venegas BIPAP PRESSURE Normal [facility] Comment on above: Performed By: #### M G, BNP, CMP #### [facility] [address] [place] [address] Dr. Celina Venegas CPAP [facility] Comment on above: Performed By: #### M G, BNP, CMP #### [facility] [address] [place] [address] Dr. Celina Venegas FIO2 30.00 % [facility] Comment on above: Performed By: #### M G, BNP, CMP #### [facility] [address] [place] [address] Dr. Celina Venegas HCO3 (Bld) [Moles/Vol] 20.2 mmol/L Critically low 22.0-26. 0 [facility] Comment on above: Performed By: #### M G, BNP, CMP #### [facility] [address] [place] [address] Dr. Celina Venegas LPM [facility] Comment on above: Performed By: #### M G, BNP, CMP #### [facility] [address] [place] [address] Dr. Celina Venegas MINUTE VOLUME Normal [facility] Comment on above: Performed By: #### M G, BNP, CMP #### [facility] [address] [place] [address] Dr. Celina Venegas Oxygen (Bld) [Partial pressure] 102.0 mm[Hg] Critically high 80.0-100.0 [facility] Comment on above: Performed By: #### M G, BNP, CMP #### [facility] [address] [address] [address] Celina Venegas Oxygen saturation in Blood 97.8 % Normal 95.0-100.0 [facility] Comment on above: Performed By: #### M G, BNP, CMP #### [facility] [address] [address] [address] Celina Venegas PCO2 40.9 mmHg Normal 35.0-45.0 [facility] Comment on above: Performed By: #### M G, BNP, CMP #### [facility] [address] [address] [address] Celina Venegas PEEP 5 [facility] Comment on above: Performed By: #### M G, BNP, CMP #### [facility] [address] [place] [address] Dr. Celina Venegas pH (Bld) 7.303 [pH] Critically low 7.350-7.450 [facility] Comment on above: Performed By: #### M G, BNP, CMP #### [facility] [address] [address] [address] Celina Venegas PIP [facility] Comment on above: Performed By: #### M G, BNP, CMP #### [facility] [address] [address] [address] Celina Venegas PS [facility] Comment on above: Performed By: #### M G, BNP, CMP #### [facility] [address] [address] [address] Celina Venegas PUNCTURE SITE RR [facility] Comment on above: Performed By: #### M G, BNP, CMP #### [facility] [address] [address] [address] Celina Venegas RATE 16 bpm [facility] Comment on above: Performed By: #### M G, BNP, CMP #### [facility] [address] [address] [address] Celina Venegas VENT MODE A/C [facility] Comment on above: Performed By: #### M G, BNP, CMP #### [facility] [address] [address] [address] Celina Venegas VT 400 ML Normal [facility] Comment on above: Performed By: #### M G, BNP, CMP #### [facility] [address] [address] [address] Celina Venegas Base excess Calc (Bld) [Moles/Vol] -2.5000 mmol/L Critically low -2.0-2.0 [facility] Comment on above: Performed By: #### M G, BNP, CMP #### [facility] [address] [address] [address] Celina Venegas HCO3 (Bld) [Moles/Vol] 23.3 mmol/L Normal 22.0-26.0 [facility] Comment on above: Performed By: #### M G, BNP, CMP #### [facility] [address] [place] [address] Dr. Celina Venegas Oxygen (Bld) [Partial pressure] 97.7 mm[Hg] Normal 80.0-100.0 [facility] Comment on above: Performed By: #### M G, BNP, CMP #### [facility] [address] [place] [address] Dr. Celina Venegas Oxygen saturation in Blood 98.0 % Normal 95.0-100.0 [facility] Comment on above: Performed By: #### M G, BNP, CMP #### [facility] [address] [place] [address] Dr. Celina Venegas PCO2 43.6 mmHg Normal 35.0-45.0 [facility] Comment on above: Performed By: #### M G, BNP, CMP #### [facility] [address] [place] [address] Dr. Celina Venegas pH (Bld) 7.336 [pH] Critically low 7.350-7.450 [facility] Comment on above: Performed By: #### M G, BNP, CMP #### [facility] [address] [place] [address] Dr. Celina Venegas CBC AUTO DIFFon 10-07-2022 BASO # 0.0 103/ul Normal 0.0-0.1 [facility] Comment on above: Performed By: #### C BC #### [facility] [address] [place] [address] Dr. Celina Venegas Basophils/100 WBC (Bld) 0.0 % Critically low 0.2-2.0 [facility] Comment on above: Performed By: #### C BC #### [facility] [address] [place] [address] Dr. Celina Venegas EO # 0.0 103/ul Normal 0.0-0.7 [facility] Comment on above: Performed By: #### C BC #### [facility] [address] [place] [address] Dr. Celina Venegas Eosinophils/100 WBC (Bld) 0.0 % Critically low 0.9-7.0 [facility] Comment on above: Performed By: #### C BC #### [facility] [address] [place] [address] Dr. Celina Venegas Erythrocyte distribution width (RBC) [Ratio] 14.6 % Normal 11.0-15.0 [facility] Comment on above: Performed By: #### C BC #### [facility] [address] [place] [address] Dr. Celina Venegas Hematocrit (Bld) [Volume fraction] 31.7 % Critically low 36.0-48.0 [facility] Comment on above: Performed By: #### C BC #### [facility] [address] [place] [address] Dr. Celina Venegas Hemoglobin (Bld) [Mass/Vol] 9.5 g/dL Critically low 12.0-16.0 [facility] Comment on above: Performed By: #### C BC #### [facility] [address] [place] [address] Dr. Celina Venegas IG # 0.04 10e3/ul Critically high 0.00-0.03 [facility] Comment on above: Performed By: #### C BC #### [facility] [address] [place] [address] Dr. Celina Venegas IG % 0.5 % Normal 0.0-0.5 [facility] Comment on above: Performed By: #### C BC #### [facility] [address] [place] [address] Dr. Celina Venegas LYMPH # 0.8 103/ul Critically low 1.2-3.8 [facility] Comment on above: Performed By: #### C BC #### [facility] [address] [place] [address] Dr. Celina Venegas Lymphocytes/100 WBC (Bld) 10.1 % Critically low 20.5-60.0 [facility] Comment on above: Performed By: #### C BC #### [facility] [address] [place] [address] Dr. Celina Venegas MANUAL DIFF REQ NO Normal [facility] Comment on above: Performed By: #### C BC #### [facility] [address] [place] [address] Dr. Celina Venegas MCH (RBC) [Entitic mass] 24.2 pg Critically low 26.7-34.0 [facility] Comment on above: Performed By: #### C BC #### [facility] [address] [place] [address] Dr. Celina Venegas MCHC (RBC) [Mass/Vol] 30.0 g/dL Normal 29.9-35.2 [facility] Comment on above: Performed By: #### C BC #### [facility] [address] [place] [address] Dr. Celina Venegas MCV (RBC) [Entitic vol] 80.7 fL Critically low 81.0-99. 0 [facility] Comment on above: Performed By: #### C BC #### [facility] [address] [place] [address] Dr. Celina Venegas MONO # 0.1 103/ul Critically low 0.3-0.8 [facility] Comment on above: Performed By: #### C BC #### [facility] [address] [place] [address] Dr. Celina Venegas Monocytes/100 WBC (Bld) 1.4 % Critically low 1.7-12.0 [facility] Comment on above: Performed By: #### C BC #### [facility] [address] [place] [address] Dr. Celina Venegas NEUT # 6.8 103/ul Critically high 1.4-6.5 [facility] Comment on above: Performed By: #### C BC #### [facility] [address] [place] [address] Dr. Celina Venegas Neutrophils/100 WBC (Bld) 88.0 % Critically high 43.0-75.0 [facility] Comment on above: Performed By: #### C BC #### [facility] [address] [place] [address] Dr. Celina Venegas Platelet mean volume (Bld) [Entitic vol] 10.5 fL Normal 9.5-13.5 [facility] Comment on above: Performed By: #### C BC #### [facility] [address] [place] [address] Dr. Celina Venegas PLT 194 103/ul Normal 150-450 [facility] Comment on above: Performed By: #### C BC #### [facility] [address] [place] [address] Dr. Celina Venegas RBC 3.93 106/ul Critically low 4.20-5.[address] [facility] Comment on above: Performed By: #### C BC #### [facility] [address] [place] [address] Dr. Celina Venegas WBC 7.8 103/ul Normal 4.0-11.0 [facility] Comment on above: Performed By: #### C BC #### [facility] [address] [place] [address] Dr. Celina Venegas CULTURE BLOODon 10-07-2022 Microscopic examination of blood, culture Culture Observations: NO GROWTH AT 5 DAYS. Normal [facility] Comment on above: Performed By: #### H STROPN #### [facility] [address] [place] [address] Dr. Celina Venegas Microscopic examination of blood, culture Culture Observations: NO GROWTH AT 5 DAYS. Normal [facility] Comment on above: Performed By: #### H STROPN #### [facility] [address] [address] [address] Celina Venegas ECHOCARDIO M/2D COMPLETEon 0 10-07-2022 ECHOCARDIO M/2D COMPLETE Patient: SHAHIDA MEJIA Exam Date: 10/07/2022 : 1970 Gender:F Ordering : SHAIKH Juliana SKELTON . Admission #: [id number] Family : DIVYA ACOSTA [employer]PERATOR-C Order #: [id number] CLICK HERE TO VIEW EXAM ECHOCARDIOGRAM REPORT [...] Ramirez M.D. on 10/07/2022 at 17:48 Normal [facility] FREE T3on 10-07-2022 FREE T3 3.12 pg/mlL Normal 2.18-3.98 [facility] Comment on above: Performed By: #### B [id number] #### [facility] [address] [place] [address] Dr. Celina Venegas FREE T4on 10-07-2022 Free T4 [Mass/Vol] 1.63 ng/dL Critically high 0.76-1.46 [facility] Comment on above: Performed By: #### H STROPN #### [facility] [address] [place] [address] Dr. Celina Venegas GLYCOHEMOGLOBIN A1Con 2022 ADA RECOMMENDATION SEE BELOW Normal [facility] Comment on above: Result Comment: ADA RECOMMENDED LIMIT 4.0 - 6.0 ADA THERAPEUTIC TARGET < 7.0 ACTION SUGGESTED > 7.0 Performed By: #### B LDCX1 #### [facility] [address] [place] [address] Dr. Celina Venegas Glucose [Mass/Vol] 117 mg/dL Normal [facility] Comment on above: Performed By: #### B LDCX1 #### [facility] [address] [place] [address] Dr. Celina Venegas HbA1c (Bld) [Mass fraction] 5.7 % Normal 4.5-6.2 [facility] Comment on above: Performed By: #### B LDCX1 #### [facility] [address] [place] [address] Dr. Celina Venegas MAGNESIUMon 10-07-2022 Magnesium [Mass/Vol] 1.5 mg/dL Critically low 1.8-2.4 [facility] Comment on above: Performed By: #### M G, BNP, CMP #### [facility] [address] [place] [address] Dr. Celina Venegas POINT OF CARE GLUCOSEon 09-13 Glucose [Mass/Vol] 247 mg/dL Critically high 74-106 [facility] Comment on above: Performed By: #### M G, BNP, CMP #### [facility] [address] [place] [address] Dr. Celina Venegas Glucose [Mass/Vol] 152 mg/dL Critically high 74-106 [facility] Comment on above: Performed By: #### B LDCX1 #### [facility] [address] [place] [address] Dr. Celina Venegas PROF 14(COMP METB)on 023 Albumin [Mass/Vol] 2.5 g/dL Critically low 3.4-5.0 [facility] Comment on above: Performed By: #### M G, BNP, CMP #### [facility] [address] [place] [address] Dr. Celina Venegas Albumin/Globulin [Mass ratio] 0.6 {ratio} Normal [facility] Comment on above: Performed By: #### M G, BNP, CMP #### [facility] [address] [place] [address] Dr. Celina Venegas ALP [Catalytic activity/Vol] 167 U/L Critically high 46-116 [facility] Comment on above: Performed By: #### M G, BNP, CMP #### [facility] [address] [place] [address] Dr. Celina Venegas ALT [Catalytic activity/Vol] 22 U/L Normal 14-59 [facility] Comment on above: Performed By: #### M G, BNP, CMP #### [facility] [address] [place] [address] Dr. Celina Venegas Anion gap [Moles/Vol] 15.1 mmol/L Normal [facility] Comment on above: Performed By: #### M G, BNP, CMP #### [facility] [address] [place] [address] Dr. Celina Venegas AST [Catalytic activity/Vol] 26 U/L Normal 15-37 [facility] Comment on above: Performed By: #### M G, BNP, CMP #### [facility] [facility] [address] [place] [address] Dr. Celina Venegas Bilirubin [Mass/Vol] 0.2 mg/dL Normal 0.2-1.0 [facility] Comment on above: Performed By: #### M G, BNP, CMP #### [facility] [address] [place] [address] Dr. Celina Venegas Calcium [Mass/Vol] 8.2 mg/dL Critically low 8.5-10.1 Th e [facility] Comment on above: Performed By: #### M G, BNP, CMP #### [facility] [address] [place] [address] Dr. Celina Venegas Chloride [Moles/Vol] 107 mmol/L Normal 98-107 [facility] Comment on above: Performed By: #### M G, BNP, CMP #### [facility] [address] [place] [address] Dr. Celina Venegas CO2 [Moles/Vol] 23.8 mmol/L Normal 21.0-32.0 The [facility] Comment on above: Performed By: #### M G, BNP, CMP #### [facility] [address] [place] [address] Dr. Celina Venegas Creatinine [Mass/Vol] 1.09 mg/dL Critically high 0.55-1.02 [facility] Comment on above: Performed By: #### M G, BNP, CMP #### [facility] [address] [place] [address] Dr. Celina Venegas EGFR-AF GUINEAN >60 Normal >=60 The [facility] Comment on above: Performed By: #### M G, BNP, CMP #### [facility] [address] [place] [address] Dr. Celina Venegas EGFR-NON AF GUINEAN 53 mL/min/1.73m2 Critically low >=60 The [facility] Comment on above: Performed By: #### M G, BNP, CMP #### [facility] [address] [address] [address] Celina Venegas Globulin (S) [Mass/Vol] 3.9 g/dL Normal [facility] Comment on above: Performed By: #### M G, BNP, CMP #### [facility] [address] [address] [address] Celina Venegas Glucose [Mass/Vol] 244 mg/dL Critically high 74-106 [facility] Comment on above: Performed By: #### M G, BNP, CMP #### [facility] [address] [place] [address] Dr. Celina Venegas Potassium [Moles/Vol] 3.9 mmol/L Normal 3.5-5.1 [facility] Comment on above: Performed By: #### M G, BNP, CMP #### [facility] [address] [place] [address] Dr. Celina Venegas Protein [Mass/Vol] 6.4 g/dL Normal 6.4-8.2 [facility] Comment on above: Performed By: #### M G, BNP, CMP #### [facility] [address] [place] [address] Dr. Celina Venegas Sodium [Moles/Vol] 142 mmol/L Normal 136-145 [facility] Comment on above: Performed By: #### M G, BNP, CMP #### [facility] [address] [place] [address] Dr. Celina Venegas Urea nitrogen [Mass/Vol] 18.0 mg/dL Normal 7.0-18.0 [facility] Comment on above: Performed By: #### M G, BNP, CMP #### [facility] [address] [place] [address] Dr. Celina Venegas Urea nitrogen/Creatinine [Mass ratio] 16.5 mg/mg Normal [facility] Comment on above: Performed By: #### M G, BNP, CMP #### [facility] [address] [place] [address] Dr. Celina Venegas PROTIMEon 10-07-2022 INR Coag (PPP) [Relative time] 1.00 {INR} Normal [facility] Comment on above: Performed By: #### B [id number] #### [facility] [address] [place] [address] Dr. Celina Venegas INR GUIDELINES SEE BELOW Normal [facility] Comment on above: Result Comment: CAESAR RED INR: 2.0 - 3.0 CONDITIONS NOT LISTED BELOW 2.5 - 3.5 FOR PROSTHETIC HEART VALVE REPLACEMENT 2.5 - 3.5 RECURRENT THROMBOSIS Performed By: #### B [id number] #### [facility] [address] [place] [address] Dr. Celina Venegas PT Coag (PPP) [Time] 10.6 s Normal 9.0-11.6 [facility] Comment on above: Performed By: #### B [id number] #### [facility] [address] [place] [address] Dr. Celina Venegas INR Coag (PPP) [Relative time] 1.01 {INR} Normal [facility] Comment on above: Performed By: #### M G, BNP, CMP #### [facility] [address] [place] [address] Dr. Celina Venegas INR GUIDELINES SEE BELOW Normal [facility] Comment on above: Result Comment: CAESAR RED INR: 2.0 - 3.0 CONDITIONS NOT LISTED BELOW 2.5 - 3.5 FOR PROSTHETIC HEART VALVE REPLACEMENT 2.5 - 3.5 RECURRENT THROMBOSIS Performed By: #### M G, BNP, CMP #### [facility] [address] [place] [address] Dr. Celina Venegas PT Coag (PPP) [Time] 10.7 s Normal 9.0-11.6 [facility] Comment on above: Performed By: #### M G, BNP, CMP #### [facility] [address] [place] [address] Dr. Celina Venegas PTTon 10-07-2022 aPTT Coag (Bld) [Time] 20.4 s Critically low 22.3-36.2 [facility] Comment on above: Performed By: #### B [id number] #### [facility] [address] [place] [address] Dr. Celina Venegas aPTT Coag (Bld) [Time] 25.2 s Normal 22.3-36.2 Th e [facility] Comment on above: Performed By: #### M G, BNP, CMP #### [facility] [address] [place] [address] Dr. Celina Venegas T4on 10-07-2022 T4 [Mass/Vol] 10.20 ug/dL Normal 4.80-13.90 [facility] Comment on above: Performed By: #### B [id number] #### [facility] [address] [address] [address] Celina Venegas TROPONIN, HIGH SENSITIVITYon 10-07-2022 HSTROP 279.6 pg/mL Critically high 4.0-51.3 [facility] Comment on above: Result Comment: CUT- OFF POINTS HAVE BEEN ESTABLISHED BASED ON THE FOURTH UNIVERSAL DEFINITIONS OF MYOCARDIAL INFARCTION. THE UPPER REFERENCE LIMIT (URL) OF TROPONIN, DEFINED THE 99TH PERCENTILE OF cTnI DISTRIBUTION IN A REFERENCE POPULATION, HAS BEEN CONFIRMED THE DECISION THRESHOLD FOR [place] DIAGNOSIS. Performed By: #### M G, BNP, CMP #### [facility] [address] [place] [address] Dr. Celina Venegas HSTROP 336.1 pg/mL Critically high 4.0-51.3 [facility] Comment on above: Result Comment: CUT- OFF POINTS HAVE BEEN ESTABLISHED BASED ON THE FOURTH UNIVERSAL DEFINITIONS OF MYOCARDIAL INFARCTION. THE UPPER REFERENCE LIMIT (URL) OF TROPONIN, DEFINED THE 99TH PERCENTILE OF cTnI DISTRIBUTION IN A REFERENCE POPULATION, HAS BEEN CONFIRMED THE DECISION THRESHOLD FOR [place] DIAGNOSIS. Performed By: #### M G, BNP, CMP #### [facility] [address] [place] [address] Dr. Celina Venegas TSHon 10-07-2022 TSH Qn m[IU]/L Critically low 0.358-3.740 [facility] Comment on above: Performed By: #### M G, BNP, CMP #### [facility] [address] [place] [address] Dr. Celina Venegas XR CHEST 1 Von 10-07-2022 XR CHEST 1 V EXAM: XR CHEST 1 V HISTORY: SHORTNESS OF BREATH COMPARISON: 10/07/2022 TECHNIQUE: AP view of the chest. Findings/impression: Decreasing bibasilar airspace disease. Stable cardiac silhouette. No pneumothorax. Trace bilateral pleural effusions. Stable ET and NG tubes. Electronically authenticated by: LOUISE POLLOCK Date: 2022-10-07 09:31 Normal [facility] XR CHEST 1 V EXAM: XR [...] by: EMILE DOWNS Date: 2022-10-07 05:44 Normal [facility] XR KUB 1 VIEWon 10-07-2022 XR [...] Juaquin COLEMAN Date: 2022-10-06 23:40 Normal [facility] ACETAMINOPHENon 10-06-2022 Acetaminophen [Mass/Vol] ug/mL Critically low 10.0-30.0 [facility] Comment on above: Performed By: #### H STROPN #### [facility] [address] [address] [address] Celina Venegas ACETONE SERUMon 10-06-2022 ACETONE Negative Normal NEGATIVE [facility] Comment on above: Performed By: #### B [id number] #### [facility] [address] [place] [address] Dr. Celina Venegas [facility] 02 MODE VENTILATOR Normal [facility] Comment on above: Performed By: #### M G, BNP, CMP #### [facility] [address] [place] [address] Dr. Celina Venegas Performed By: #### A BG #### [facility] [address] [place] [address] Dr. Celina Venegas ALLENS TEST Positive [facility] Comment on above: Performed By: #### M G, BNP, CMP #### [facility] [address] [place] [address] Dr. Celina Venegas Performed By: #### A BG #### [facility] [address] [place] [address] Dr. Celina Venegas Base excess Calc (Bld) [Moles/Vol] -8.9000 mmol/L Critically low -2.0-2.0 [facility] Comment on above: Performed By: #### A BG #### [facility] [address] [place] [address] Dr. Celina Venegas BIPAP PRESSURE [facility] Comment on above: Performed By: #### M G, BNP, CMP #### [facility] [address] [place] [address] Dr. Celina Venegas Performed By: #### A BG #### [facility] [address] [place] [address] Dr. Celina Venegas CPAP [facility] Comment on above: Performed By: #### M G, BNP, CMP #### [facility] [address] [place] [address] Dr. Celina Venegas Performed By: #### A BG #### [facility] [address] [place] [address] Dr. Celina Venegas FIO2 40.00 % [facility] Comment on above: Performed By: #### M G, BNP, CMP #### [facility] [address] [place] [address] Dr. Celina Venegas Performed By: #### A BG #### [facility] [address] [place] [address] Dr. Celina Venegas HCO3 (Bld) [Moles/Vol] 19.3 mmol/L Critically low 22.0-26. 0 [facility] Comment on above: Performed By: #### A BG #### [facility] [address] [place] [address] Dr. Celina Venegas LPM [facility] Comment on above: Performed By: #### M G, BNP, CMP #### [facility] [address] [place] [address] Dr. Celina Venegas Performed By: #### A BG #### [facility] [address] [place] [address] Dr. Celina Venegas MINUTE VOLUME Normal [facility] Comment on above: Performed By: #### M G, BNP, CMP #### [facility] [address] [place] [address] Dr. Celina Venegas Performed By: #### A BG #### [facility] [address] [place] [address] Dr. Celina Venegas Oxygen (Bld) [Partial pressure] 97.4 mm[Hg] Normal 80.0-100.0 [facility] Comment on above: Performed By: #### A BG #### [facility] [address] [place] [address] Dr. Celina Venegas Oxygen saturation in Blood 96.1 % Normal 95.0-100.0 [facility] Comment on above: Performed By: #### A BG #### [facility] [address] [place] [address] Dr. Celina Venegas PCO2 50.2 mmHg Critically high 35.0-45.[address] [facility] Comment on above: Performed By: #### A BG #### [facility] [address] [place] [address] Dr. Celina Venegas PEEP 5 [facility] Comment on above: Performed By: #### M G, BNP, CMP #### [facility] [address] [place] [address] Dr. Celina Venegas Performed By: #### A BG #### [facility] [address] [place] [address] Dr. Celina Venegas pH (Bld) 7.193 [pH] Critically low 7.350-7.450 [facility] Comment on above: Performed By: #### A BG #### [facility] [address] [address] [address] Celina Venegas [facility] Comment on above: Performed By: #### M G, BNP, CMP #### [facility] [address] [address] [address] Celina Venegas Performed By: #### A BG #### [facility] [address] [place] [address] Dr. Celina Venegas [facility] Comment on above: Performed By: #### M G, BNP, CMP #### [facility] [address] [place] [address] Dr. Celina Venegas Performed By: #### A BG #### [facility] [address] [place] [address] Dr. Celina Venegas PUNCTURE SITE RR [facility] Comment on above: Performed By: #### M G, BNP, CMP #### [facility] [address] [place] [address] Dr. Celina Venegas Performed By: #### A BG #### [facility] [address] [place] [address] Dr. Celina Venegas RATE 16 bpm [facility] Comment on above: Performed By: #### M G, BNP, CMP #### [facility] [address] [place] [address] Dr. Celina Venegas Performed By: #### A BG #### [facility] [address] [place] [address] Dr. Celina Venegas VENT MODE A/C [facility] Comment on above: Performed By: #### M G, BNP, CMP #### [facility] [address] [place] [address] Dr. Celina Venegas Performed By: #### A BG #### [facility] [address] [place] [address] Dr. Celina Venegas VT 400 ML Normal [facility] Comment on above: Performed By: #### M G, BNP, CMP #### [facility] [address] [place] [address] Dr. Celina Venegas Performed By: #### A BG #### [facility] [address] [place] [address] Dr. Celina Venegas BNPon 10-06-2022 Natriuretic peptide B (Bld) [Mass/Vol] 3590.0 pg/mL Critically high <=900.0 [facility] Comment on above: Performed By: #### C BC #### [facility] [address] [place] [address] Dr. Celina Venegas CBC AUTO DIFFon 10-06-2022 BASO # 0.1 103/ul Normal 0.0-0.1 [facility] Comment on above: Performed By: #### P REG #### [facility] [address] [place] [address] Dr. Celina Venegas Basophils/100 WBC (Bld) 0.4 % Normal 0.2-2.0 [facility] Comment on above: Performed By: #### P REG #### [facility] [address] [place] [address] Dr. Celina Venegas EO # 0.2 103/ul Normal 0.0-0.7 [facility] Comment on above: Performed By: #### P REG #### [facility] [address] [place] [address] Dr. Celina Venegas Eosinophils/100 WBC (Bld) 1.1 % Normal 0.9-7.0 [facility] Comment on above: Performed By: #### P REG #### [facility] [address] [place] [address] Dr. Celina Venegas Erythrocyte distribution width (RBC) [Ratio] 14.5 % Normal 11.0-15.0 [facility] Comment on above: Performed By: #### P REG #### [facility] [address] [place] [address] Dr. Celina Venegas Hematocrit (Bld) [Volume fraction] 38.1 % Normal 36.0-48.0 [facility] Comment on above: Performed By: #### P REG #### [facility] [address] [place] [address] Dr. Celina Venegas Hemoglobin (Bld) [Mass/Vol] 11.3 g/dL Critically low 12.0-16.0 [facility] Comment on above: Performed By: #### P REG #### [facility] [address] [address] [address] Celina Venegas IG # 0.21 10e3/ul Critically high 0.00-0.03 [facility] Comment on above: Performed By: #### P REG #### [facility] [address] [place] [address] Dr. Celina Venegas IG % 1.5 % Critically high 0.0-0.[address] [facility] Comment on above: Performed By: #### P REG #### [facility] [address] [place] [address] Dr. Celina Venegas LYMPH # 3.3 103/ul Normal 1.2-3.8 [facility] Comment on above: Performed By: #### P REG #### [facility] [address] [place] [address] Dr. Celina Venegas Lymphocytes/100 WBC (Bld) 23.8 % Normal 20.5-60.0 [facility] Comment on above: Performed By: #### P REG #### [facility] [address] [place] [address] Dr. Celina Venegas MANUAL DIFF REQ NO Normal [facility] Comment on above: Performed By: #### P REG #### [facility] [address] [place] [address] Dr. Celina Venegas MCH (RBC) [Entitic mass] 24.9 pg Critically low 26.7-34.0 [facility] Comment on above: Performed By: #### P REG #### [facility] [address] [place] [address] Dr. Celina Venegas MCHC (RBC) [Mass/Vol] 29.7 g/dL Critically low 29.9-35.2 [facility] Comment on above: Performed By: #### P REG #### [facility] [address] [place] [address] Dr. Celina Venegas MCV (RBC) [Entitic vol] 83.9 fL Normal 81.0-99.0 [facility] Comment on above: Performed By: #### P REG #### [facility] [address] [place] [address] Dr. Celina Venegas MONO # 0.5 103/ul Normal 0.3-0.8 [facility] Comment on above: Performed By: #### P REG #### [facility] [address] [place] [address] Dr. Celina Venegas Monocytes/100 WBC (Bld) 3.8 % Normal 1.7-12.0 [facility] Comment on above: Performed By: #### P REG #### [facility] [address] [place] [address] Dr. Celina Venegas NEUT # 9.6 103/ul Critically high 1.4-6.5 [facility] Comment on above: Performed By: #### P REG #### [facility] [address] [place] [address] Dr. Celina Venegas Neutrophils/100 WBC (Bld) 69.4 % Normal 43.0-75.0 [facility] Comment on above: Performed By: #### P REG #### [facility] [address] [address] [address] Celina Venegas Platelet mean volume (Bld) [Entitic vol] 10.4 fL Normal 9.5-13.5 [facility] Comment on above: Performed By: #### P REG #### [facility] [address] [place] [address] Dr. Celina Venegas PLT 409 103/ul Normal 150-450 [facility] Comment on above: Performed By: #### P REG #### [facility] [address] [place] [address] Dr. Celina Venegas RBC 4.54 106/ul Normal 4.20-5.40 [facility] Comment on above: Performed By: #### P REG #### [facility] [address], [place] [address] Dr. Celina Venegas WBC 13.8 103/ul Critically high 4.0-11.0 [facility] Comment on above: Performed By: #### P REG #### [facility] [address], [place] [address] ABD/PELV W CONon 10-07-[address] ABD/PELV W CON CT SCAN OF THE ABDOMEN AND PELVIS WITH CONTRAST, 10/06/2022 8:27 PM [...] by: Ju RIVERA Date: 2022-10-06 21:52 Normal [facility] CT ABD/PELVIS WO CONon 10-06 CT ABD/PELVIS WO CON EXAMINATION: CTA CHEST WO W CON, CT ABD/PELVIS WO CON [...] LISSA ARTEAGA Date: 2022-10-06 21:51 Normal [facility] CULTURE BLOODon 10-06-2022 Microscopic examination of blood, culture Culture Observations: NO GROWTH AT 5 DAYS. Normal [facility] Comment on above: Performed By: #### H STROPN #### [facility] [address] [place] [address] Dr. Celina Venegas Performed By: #### B [id number] #### [facility] [address] [place] [address] Dr. Celina Venegas Covid-19 PCR ([facility])on 09-13 SARS-CoV-2 (COVID-19) RNA ELVA+probe Ql (Unsp spec) Not detected Normal NOT DETECTED [facility] Comment on above: Performed By: #### P REG #### [facility] [address] [place] [address] Dr. Celina Venegas DRUG SCREEN RAPID (URINE)on 10-06-2022 AMP Negative Normal NEGATIVE [facility] Comment on above: Performed By: #### M G, BNP, CMP #### [facility] [address] [place] [address] Dr. Celina Venegas BAR Negative Normal NEGATIVE [facility] Comment on above: Performed By: #### M G, BNP, CMP #### [facility] [address] [place] [address] Dr. Celina Venegas BUP Negative Normal NEGATIVE [facility] Comment on above: Performed By: #### M G, BNP, CMP #### [facility] [address] [place] [address] Dr. Celina Venegas BZO Negative Normal NEGATIVE [facility] Comment on above: Performed By: #### M G, BNP, CMP #### [facility] [address] [place] [address] Dr. Celina Venegas BRIANDA Negative Normal NEGATIVE [facility] Comment on above: Performed By: #### M G, BNP, CMP #### [facility] [address] [place] [address] Dr. Celina Venegas CUT-OFFS SEE BELOW Normal [facility] Comment on above: Result Comment: AMP (Amphetamine): [...] By: #### M G, BNP, CMP #### [facility] [address] [place] [address] Dr. Celina Venegas DRUG CUT HEADER DRUG CLASS TEST SYSTEM CUT-OFF CONCENTRATIONS ARE FOLLOWS: Normal [facility] Comment on above: Performed By: #### M G, BNP, CMP #### [facility] [address] [place] [address] Dr. Celina Venegas mAMP Negative Normal NEGATIVE [facility] Comment on above: Performed By: #### M G, BNP, CMP #### [facility] [address] [place] [address] Dr. Celina eVnegas MTD Negative Normal NEGATIVE [facility] Comment on above: Performed By: #### M G, BNP, CMP #### [facility] [address] [place] [address] Dr. Celina Venegas OPI Negative Normal NEGATIVE [facility] Comment on above: Performed By: #### M G, BNP, CMP #### [facility] [address] [place] [address] Dr. Celina Venegas OXY Negative Normal NEGATIVE [facility] Comment on above: Performed By: #### M G, BNP, CMP #### [facility] [address] [place] [address] Dr. Celina Venegas PCP Negative Normal NEGATIVE [facility] Comment on above: Performed By: #### M G, BNP, CMP #### [facility] [address] [place] [address] Dr. Celina Venegas PPX Negative Normal NEGATIVE [facility] Comment on above: Performed By: #### M G, BNP, CMP #### [facility] [address] [place] [address] Dr. Celina Venegas TCA Negative Normal NEGATIVE [facility] Comment on above: Performed By: #### M G, BNP, CMP #### [facility] [address] [place] [address] Dr. Celina Venegas THC Positive Abnormal NEGATIVE [facility] Comment on above: Performed By: #### M G, BNP, CMP #### [facility] [address] [place] [address] Dr. Celina Venegas ETHANOL (BLD ALC)on 10-07-19 ALC NOTE NOTE: 80 mg/dl is legal limit for a blood alcohol level Normal [facility] Comment on above: Performed By: #### B [id number] #### [facility] [address] [place] [address] Dr. Celina Venegas Ethanol [Mass/Vol] mg/dL Normal [facility] Comment on above: Performed By: #### B LDCX2 #### [facility] [address] [place] [address] Dr. Celina Venegas LACTATE/LACTIC ACIDon 2022 Lactate [Moles/Vol] 2.2 mmol/L Critically high 0.4-2.0 [facility] Comment on above: Performed By: #### B LDCX2 #### [facility] [address] [place] [address] Dr. Celina Venegas Lactate [Moles/Vol] 5.5 mmol/L Critically high 0.4-2.0 [facility] Comment on above: Performed By: #### M G, BNP, CMP #### [facility] [address] [place] [address] Dr. Celina Venegas LIVER PROFILEon 10-06-2022 Albumin [Mass/Vol] 2.8 g/dL Critically low 3.4-5.0 e [facility] Comment on above: Performed By: #### M G, BNP, CMP #### [facility] [address] [place] [address] Dr. Celina Venegas Albumin/Globulin [Mass ratio] 0.6 {ratio} Normal [facility] Comment on above: Performed By: #### M G, BNP, CMP #### [facility] [address] [address] [address] Celina Venegas ALP [Catalytic activity/Vol] 218 U/L Critically high 46-116 [facility] Comment on above: Performed By: #### M G, BNP, CMP #### [facility] [address] [address] [address] Celina Venegas ALT [Catalytic activity/Vol] 22 U/L Normal 14-59 [facility] Comment on above: Performed By: #### M G, BNP, CMP #### [facility] [address] [place] [address] Dr. Celina Venegas AST [Catalytic activity/Vol] 27 U/L Normal 15-37 [facility] Comment on above: Performed By: #### M G, BNP, CMP #### [facility] [address] [place] [address] Dr. Celina Venegas BILI, CONJUGATED 0.1 mg/dL Normal 0.0-0.2 [facility] Comment on above: Performed By: #### M G, BNP, CMP #### [facility] [address] [place] [address] Dr. Celina Venegas Bilirubin [Mass/Vol] 0.2 mg/dL Normal 0.2-1.0 [facility] Comment on above: Performed By: #### M G, BNP, CMP #### [facility] [address] [place] [address] Dr. Celina Venegas Globulin (S) [Mass/Vol] 4.6 g/dL Normal [facility] Comment on above: Performed By: #### M G, BNP, CMP #### [facility] [address] [place] [address] Dr. Celina Venegas Protein [Mass/Vol] 7.4 g/dL Normal 6.4-8.2 [facility] Comment on above: Performed By: #### M G, BNP, CMP #### [facility] [address] [place] [address] Dr. eClina Venegas PROF CHEM 8 (BAS METB)on Anion gap [Moles/Vol] 20.6 mmol/L Normal [facility] Comment on above: Performed By: #### C BC #### [facility] [address] [address] [address] Celina Venegas Calcium [Mass/Vol] 8.4 mg/dL Critically low 8.5-10.1 [facility] Comment on above: Performed By: #### C BC #### [facility] [address] [address] [address] Celina Venegas Chloride [Moles/Vol] 107 mmol/L Normal 98-107 [facility] Comment on above: Performed By: #### C BC #### [facility] [address] [address] [address] Celina Venegas CO2 [Moles/Vol] 19.5 mmol/L Critically low 21.0-32.0 [facility] Comment on above: Performed By: #### C BC #### [facility] [address] [address] [address] Celina Venegas Creatinine [Mass/Vol] 1.39 mg/dL Critically high 0.55-1.02 [facility] Comment on above: Performed By: #### C BC #### [facility] [address] [address] [address] Celina Venegas EGFR-AF GUINEAN 48 mL/min/1.73m2 Critically low >=60 [facility] Comment on above: Performed By: #### C BC #### [facility] [address] [address] [address] Celina Venegas EGFR-NON AF GUINEAN 40 mL/min/1.73m2 Critically low >=60 [facility] Comment on above: Performed By: #### C BC #### [facility] [address] [address] [address] Celina Venegas Glucose [Mass/Vol] 322 mg/dL Critically high 74-106 [facility] Comment on above: Performed By: #### C BC #### [facility] [address] [address] [address] Celina Veneags Potassium [Moles/Vol] 3.1 mmol/L Critically low 3.5-5.1 [facility] Comment on above: Performed By: #### C BC #### [facility] [address] [address] [address] Celina Venegas Sodium [Moles/Vol] 144 mmol/L Normal 136-145 [facility] Comment on above: Performed By: #### C BC #### [facility] [address] [address] [address] Celina Venegas Urea nitrogen [Mass/Vol] 22.0 mg/dL Critically high 7.0-18.0 [facility] Comment on above: Performed By: #### C BC #### [facility] [address] [place] [address] Dr. Celina Venegas Urea nitrogen/Creatinine [Mass ratio] 15.8 mg/mg Normal [facility] Comment on above: Performed By: #### C BC #### [facility] [address] [address] [address] Celina Venegas SALICYLATEon 10-06-2022 SALICYLATE <2.8 Normal <=19.9 [facility] Comment on above: Performed By: #### H STROPN #### [facility] [address] [address] [address] Celina Venegas SYMPTOMATIC COVID-19 ANTIGEN on 10-06-2022 EUA Statement SEE BELOW Normal [facility] Comment on above: Result Comment: This [...] By: #### M G, BNP, CMP #### [facility] [address] [address] [address] Celina Venegas SARS-CoV-2 (COVID-19) RNA ELVA+probe Ql (Unsp spec) Negative Normal NEGATIVE [facility] Comment on above: Performed By: #### M G, BNP, CMP #### [facility] [address] [address] [address] Celina Venegas TROPONIN, HIGH SENSITIVITYon 10-06-2022 HSTROP 288.7 pg/mL Critically high 4.0-51.3 [facility] Comment on above: Result Comment: CUT- OFF POINTS HAVE BEEN ESTABLISHED BASED ON THE FOURTH UNIVERSAL DEFINITIONS OF MYOCARDIAL INFARCTION. THE UPPER REFERENCE LIMIT (URL) OF TROPONIN, DEFINED THE 99TH PERCENTILE OF cTnI DISTRIBUTION IN A REFERENCE POPULATION, HAS BEEN CONFIRMED THE DECISION THRESHOLD FOR [place] DIAGNOSIS. Performed By: #### H STROPN #### [facility] [address] [place] [address] Dr. Celina Venegas HSTROP 109.5 pg/mL Critically high 4.0-51.3 [facility] Comment on above: Result Comment: CUT- OFF POINTS HAVE BEEN ESTABLISHED BASED ON THE FOURTH UNIVERSAL DEFINITIONS OF MYOCARDIAL INFARCTION. THE UPPER REFERENCE LIMIT (URL) OF TROPONIN, DEFINED THE 99TH PERCENTILE OF cTnI DISTRIBUTION IN A REFERENCE POPULATION, HAS BEEN CONFIRMED THE DECISION THRESHOLD FOR OH DIAGNOSIS. Performed By: #### C BC #### [facility] [address] [place] [address] Dr. Celina Venegas XR CHEST 1 Von [...] by: GABRIELLA TESFAYE Date: 2022-10-06 18:46 Normal [facility] XR CHEST 1 V EXAM: [...] JUAN LUIS LOVE Date: 2022-10-06 18:22 Normal [facility] GGTon 09-22-2022 Gamma glutamyl transferase [Catalytic activity/Vol] 80 U/L Critically high 8-55 [facility] Comment on above: Performed By: #### H STROPN #### [facility] [address] [place] [address] Dr. Celina Venegas LIPID PROFILEon 09-22-2022 CHOL-HDL RATIO NORM SEE BELOW Normal [facility] Comment on above: Result Comment: 3.3 - 4.4 LOW RISK 4.4 - 7.1 AVERAGE RISK 7.1 - 11.0 MODERATE RISK >11.0 HIGH RISK Performed By: #### H STROPN #### [facility] [address] [place] [address] Dr. Celina Venegas Cholesterol [Mass/Vol] 162 mg/dL Normal <=200 [facility] Comment on above: Performed By: #### H STROPN #### [facility] [address] [address] [address] Celina Venegas Cholesterol in HDL [Mass/Vol] 41 mg/dL Normal 40-60 [facility] Comment on above: Performed By: #### H STROPN #### [facility] [address] [address] [address] Celina Venegas Cholesterol in LDL [Mass/Vol] 90.8 mg/dL Normal [facility] Comment on above: Performed By: #### H STROPN #### [facility] [address] [address] [address] Celina Venegas Cholesterol.total/Kelly sterol in HDL [Mass ratio] 4.0 {ratio} Normal [facility] Comment on above: Performed By: #### H STROPN #### [facility] [address] [address] [address] Celina Venegas HDL NORMAL > or = 60 mg/dl - LO W CARDIOVASCULAR RISK <40 mg/dl - HIGH CARDIOVASCULAR RISK Normal [facility] Comment on above: Performed By: #### H STROPN #### [facility] [address] [address] [address] Celina Venegas LDL CALC NORMAL SEE BELOW Normal [facility] Comment on above: Result Comment: <100 mg/dl OPTIMAL 100 - 129 mg/dl NEAR OR ABOVE OPTIMAL 130 - 159 mg/dl BORDERLINE HIGH 160 - 189 mg/dl HIGH >190 mg/dl VERY HIGH Performed By: #### H STROPN #### [facility] [address] [address] [address] Celina Venegas Triglyceride [Mass/Vol] 151 mg/dL Critically high <=150 [facility] Comment on above: Performed By: #### H STROPN #### [facility] [address] [address] [address] Celina Venegas VLDL CALC 30.2 mg/dL Normal [facility] Comment on above: Performed By: #### H STROPN #### [facility] [address] [address] [address] Celina Venegas XR CHEST 2 Von [...] by: THADDEUS LO Date: 2022-09-22 10:58 Normal [facility] STOOL CULTUREon 09-11-2022 Campylobacter Culture Final report Normal T [facility] Comment on above: Performed By: #### M G, BNP, CMP #### [facility] [address] [address] [address] Celina Venegas E coli Shiga Toxin EIA Negative Normal Negative [facility] Comment on above: Performed By: #### M G, BNP, CMP #### [facility] [address] [address] [address] Celina Venegas Result 1 Comment Normal [facility] Comment on above: Result Comment: No S almonella or Shigella recovered. Performed By: #### M G, BNP, CMP #### [facility] [address] [place] [address] Dr. Celina Venegas Result Comment: No C ampylobacter species isolated. Salmonella/Shigella Screen Final report Normal [facility] Comment on above: Performed By: #### M G, BNP, CMP #### [facility] [address] [place] [address] Dr. Celina Venegas CBC AUTO DIFFon 09-08-2022 BASO # 0.0 103/ul Normal 0.0-0.1 [facility] Comment on above: Performed By: #### M G, BNP, CMP #### [facility] [address] [place] [address] Dr. Celina Venegas Basophils/100 WBC (Bld) 0.1 % Critically low 0.2-2.0 [facility] Comment on above: Performed By: #### M G, BNP, CMP #### [facility] [address] [place] [address] Dr. Celina Venegas EO # 0.3 103/ul Normal 0.0-0.7 [facility] Comment on above: Performed By: #### M G, BNP, CMP #### [facility] [address] [place] [address] Dr. Celina Venegas Eosinophils/100 WBC (Bld) 3.6 % Normal 0.9-7.0 [facility] Comment on above: Performed By: #### M G, BNP, CMP #### [facility] [address] [place] [address] Dr. Celina Venegas Erythrocyte distribution width (RBC) [Ratio] 13.9 % Normal 11.0-15.0 [facility] Comment on above: Performed By: #### M G, BNP, CMP #### [facility] [address] [place] [address] Dr. Celina Venegas Hematocrit (Bld) [Volume fraction] 28.9 % Critically low 36.0-48.0 [facility] Comment on above: Performed By: #### M G, BNP, CMP #### [facility] [address] [place] [address] Dr. Celina Venegas Hemoglobin (Bld) [Mass/Vol] 8.8 g/dL Critically low 12.0-16.0 [facility] Comment on above: Performed By: #### M G, BNP, CMP #### [facility] [address] [place] [address] Dr. Celina Venegas IG # 0.03 10e3/ul Normal 0.00-0.03 [facility] Comment on above: Performed By: #### M G, BNP, CMP #### [facility] [address] [place] [address] Dr. Celina Venegas IG % 0.4 % Normal 0.0-0.5 [facility] Comment on above: Performed By: #### M G, BNP, CMP #### [facility] [address] [place] [address] Dr. Celina Venegas LYMPH # 0.8 103/ul Critically low 1.2-3.8 [facility] Comment on above: Performed By: #### M G, BNP, CMP #### [facility] [address] [place] [address] Dr. Celina Venegas Lymphocytes/100 WBC (Bld) 10.5 % Critically low 20.5-60.0 [facility] Comment on above: Performed By: #### M G, BNP, CMP #### [facility] [address] [place] [address] Dr. Celina Venegas MANUAL DIFF REQ NO Normal [facility] Comment on above: Performed By: #### M G, BNP, CMP #### [facility] [address] [place] [address] Dr. Celina Venegas MCH (RBC) [Entitic mass] 24.9 pg Critically low 26.7-34.0 [facility] Comment on above: Performed By: #### M G, BNP, CMP #### [facility] [address] [place] [address] Dr. Celina Venegas MCHC (RBC) [Mass/Vol] 30.4 g/dL Normal 29.9-35.2 [facility] Comment on above: Performed By: #### M G, BNP, CMP #### [facility] [address] [place] [address] Dr. Celina Venegas MCV (RBC) [Entitic vol] 81.9 fL Normal 81.0-99.0 [facility] Comment on above: Performed By: #### M G, BNP, CMP #### [facility] [address] [place] [address] Dr. Celina Venegas MONO # 0.6 103/ul Normal 0.3-0.8 [facility] Comment on above: Performed By: #### M G, BNP, CMP #### [facility] [address] [place] [address] Dr. Celina Venegas Monocytes/100 WBC (Bld) 7.8 % Normal 1.7-12.0 [facility] Comment on above: Performed By: #### M G, BNP, CMP #### [facility] [address] [place] [address] Dr. Celina Venegas NEUT # 5.5 103/ul Normal 1.4-6.5 [facility] Comment on above: Performed By: #### M G, BNP, CMP #### [facility] [address] [place] [address] Dr. Celina Venegas Neutrophils/100 WBC (Bld) 77.6 % Critically high 43.0-75.0 [facility] Comment on above: Performed By: #### M G, BNP, CMP #### [facility] [address] [address] [address] Celina Venegas Platelet mean volume (Bld) [Entitic vol] 10.8 fL Normal 9.5-13.5 [facility] Comment on above: Performed By: #### M G, BNP, CMP #### [facility] [address] [address] [address] Celina Venegas PLT 256 103/ul Normal 150-450 [facility] Comment on above: Performed By: #### M G, BNP, CMP #### [facility] [address] [address] [address] Celina Venegas RBC 3.53 106/ul Critically low 4.20-5.40 [facility] Comment on above: Performed By: #### M G, BNP, CMP #### [facility] [address] [place] [address] Dr. Celina Venegas WBC 7.1 103/ul Normal 4.0-11.0 [facility] Comment on above: Performed By: #### M G, BNP, CMP #### [facility] [address] [place] [address] Dr. Celina Venegas Consultation Noteon 09-09-19 23 Consultation Note [id number] Normal [facility] MAGNESIUMon 09-08-2022 Magnesium [Mass/Vol] 1.1 mg/dL Critically low 1.8-2.4 [facility] Comment on above: Performed By: #### B [id number] #### [facility] [address] [address] [address] Celina Venegas PROF CHEM 8 (BAS METB)on Anion gap [Moles/Vol] 13.5 mmol/L Normal [facility] Comment on above: Performed By: #### B LDCX1 #### [facility] [address] [place] [address] Dr. Celina Venegas Calcium [Mass/Vol] 8.7 mg/dL Normal 8.5-10.1 [facility] Comment on above: Performed By: #### B [id number] #### [facility] [address] [address] [address] Celina Venegas Chloride [Moles/Vol] 108 mmol/L Critically high 98-107 [facility] Comment on above: Performed By: #### B [id number] #### [facility] [address] [address] [address] Celina Venegas CO2 [Moles/Vol] 22.5 mmol/L Normal 21.0-32.0 [facility] Comment on above: Performed By: #### B LDCX1 #### [facility] [address] [address] [address] Celina Venegas Creatinine [Mass/Vol] 0.65 mg/dL Normal 0.55-1.02 [facility] Comment on above: Performed By: #### B [id number] #### [facility] [address] [address] [address] Celina Venegas EGFR-AF GUINEAN >60 Normal >=60 [facility] Comment on above: Performed By: #### B [id number] #### [facility] [address] [address] [address] Celina Venegas EGFR-NON AF GUINEAN >60 Normal >=60 [facility] Comment on above: Performed By: #### B [id number] #### [facility] [address] [address] [address] Celina Venegas Glucose [Mass/Vol] 98 mg/dL Normal 74-106 [facility] Comment on above: Performed By: #### B [id number] #### [facility] [address] [address] [address] Celina Venegas Potassium [Moles/Vol] 3.0 mmol/L Critically low 3.5-5.1 [facility] Comment on above: Performed By: #### B [id number] #### [facility] [address] [address] [address] Celina Venegas Sodium [Moles/Vol] 141 mmol/L Normal 136-145 [facility] Comment on above: Performed By: #### B [id number] #### [facility] [address] [place] [address] Dr. Celina Venegas Urea nitrogen [Mass/Vol] 14.0 mg/dL Normal 7.0-18.0 [facility] Comment on above: Performed By: #### B [id number] #### [facility] [address] [place] [address] Dr. Celina Venegas Urea nitrogen/Creatinine [Mass ratio] 21.5 mg/mg Normal [facility] Comment on above: Performed By: #### B [id number] #### [facility] [address] [place] [address] Dr. Celina Venegas CBC AUTO DIFFon 09-07-2022 BASO # 0.0 103/ul Normal 0.0-0.1 [facility] Comment on above: Performed By: #### B LDCX2 #### [facility] [address] [place] [address] Dr. Celina Venegas Basophils/100 WBC (Bld) 0.2 % Normal 0.2-2.0 [facility] Comment on above: Performed By: #### B LDCX2 #### [facility] [address] [place] [address] Dr. Celina Venegas EO # 0.1 103/ul Normal 0.0-0.7 [facility] Comment on above: Performed By: #### B [id number] #### [facility] [address] [place] [address] Dr. Celina Venegas Eosinophils/100 WBC (Bld) 0.9 % Normal 0.9-7.0 [facility] Comment on above: Performed By: #### B LDCX2 #### [facility] [address] [place] [address] Dr. Celina Vneegas Erythrocyte distribution width (RBC) [Ratio] 14.0 % Normal 11.0-15.0 [facility] Comment on above: Performed By: #### B LDCX2 #### [facility] [address] [place] [address] Dr. Celina Venegas Hematocrit (Bld) [Volume fraction] 31.7 % Critically low 36.0-48.0 [facility] Comment on above: Performed By: #### B LDCX2 #### [facility] [address] [place] [address] Dr. Celina Venegas Hemoglobin (Bld) [Mass/Vol] 9.2 g/dL Critically low 12.0-16.0 [facility] Comment on above: Performed By: #### B LDCX2 #### [facility] [address] [place] [address] Dr. Celina Venegas IG # 0.04 10e3/ul Critically high 0.00-0.03 [facility] Comment on above: Performed By: #### B LDCX2 #### [facility] [address] [place] [address] Dr. Celina Venegas IG % 0.4 % Normal 0.0-0.5 [facility] Comment on above: Performed By: #### B [id number] #### [facility] [address] [place] [address] Dr. Celina Venegas LYMPH # 0.8 103/ul Critically low 1.2-3.8 [facility] Comment on above: Performed By: #### B [id number] #### [facility] [address] [place] [address] Dr. Celina Venegas Lymphocytes/100 WBC (Bld) 8.7 % Critically low 20.5-60.0 [facility] Comment on above: Performed By: #### B LDCX2 #### [facility] [address] [place] [address] Dr. Celina Venegas MANUAL DIFF REQ NO Normal [facility] Comment on above: Performed By: #### B [id number] #### [facility] [address] [place] [address] Dr. Celina Venegas MCH (RBC) [Entitic mass] 25.7 pg Critically low 26.7-34.0 [facility] Comment on above: Performed By: #### B LDCX2 #### [facility] [address] [place] [address] Dr. Celina Venegas MCHC (RBC) [Mass/Vol] 29.0 g/dL Critically low 29.9-35.2 [facility] Comment on above: Performed By: #### B LDCX2 #### [facility] [address] [address] [address] Celina eVnegas MCV (RBC) [Entitic vol] 88.5 fL Normal 81.0-99.0 [facility] Comment on above: Performed By: #### B [id number] #### [facility] [address] [place] [address] Dr. Celina Venegas MONO # 0.5 103/ul Normal 0.3-0.8 [facility] Comment on above: Performed By: #### B [id number] #### [facility] [address] [place] [address] Dr. Celina Venegas Monocytes/100 WBC (Bld) 5.2 % Normal 1.7-12.0 [facility] Comment on above: Performed By: #### B LDCX2 #### [facility] [address] [place] [address] Dr. Celina Venegas NEUT # 7.9 103/ul Critically high 1.4-6.5 [facility] Comment on above: Performed By: #### B LDCX2 #### [facility] [address] [place] [address] Dr. Celina Venegas Neutrophils/100 WBC (Bld) 84.6 % Critically high 43.0-75.0 [facility] Comment on above: Performed By: #### B [id number] #### [facility] [address] [place] [address] Dr. Celina Venegas Platelet mean volume (Bld) [Entitic vol] 10.9 fL Normal 9.5-13.5 [facility] Comment on above: Performed By: #### B [id number] #### [facility] [address] [place] [address] Dr. Celina Venegas PLT 240 103/ul Normal 150-450 [facility] Comment on above: Performed By: #### B [id number] #### [facility] [address], [place] [address] Dr. Celina Venegas RBC 3.58 106/ul Critically low 4.20-5.[address] [facility] Comment on above: Performed By: #### B [id number] #### [facility] [address], [place] [address] Dr. Celina Venegas WBC 9.3 103/ul Normal 4.0-11.0 [facility] Comment on above: Performed By: #### B [id number] #### [facility] [address], [place] [address] ABD/PELV W CONon [...] ileus. 3.Colonic diverticulosis. Electronically authenticated by: THADDEUS WALLY Date: 2022-09-07 10:55 Normal [facility] MAGNESIUMon 09-07-2022 Magnesium [Mass/Vol] 1.6 mg/dL Critically low 1.8-2.4 [facility] Comment on above: Performed By: #### M G, BNP, CMP #### [facility] [address] [address] [address] Celina Venegas PROF CHEM 8 (BAS METB)on Anion gap [Moles/Vol] 11.6 mmol/L Normal [facility] Comment on above: Performed By: #### M G, BNP, CMP #### [facility] [address] [place] [address] Dr. Celina Venegas Calcium [Mass/Vol] 9.5 mg/dL Normal 8.5-10.1 [facility] Comment on above: Performed By: #### M G, BNP, CMP #### [facility] [address] [place] [address] Dr. Celina Venegas Chloride [Moles/Vol] 109 mmol/L Critically high 98-107 [facility] Comment on above: Performed By: #### M G, BNP, CMP #### [facility] [address] [place] [address] Dr. Celina Venegas CO2 [Moles/Vol] 23.2 mmol/L Normal 21.0-32.0 [facility] Comment on above: Performed By: #### M G, BNP, CMP #### [facility] [address] [place] [address] Dr. Celina Venegas Creatinine [Mass/Vol] 0.72 mg/dL Normal 0.55-1.02 [facility] Comment on above: Performed By: #### M G, BNP, CMP #### [facility] [address] [place] [address] Dr. Celina Venegas EGFR-AF GUINEAN >60 Normal >=60 [facility] Comment on above: Performed By: #### M G, BNP, CMP #### [facility] [address] [address] [address] Celina Venegas EGFR-NON AF GUINEAN >60 Normal >=60 [facility] Comment on above: Performed By: #### M G, BNP, CMP #### [facility] [address] [place] [address] Dr. Celina Venegas Glucose [Mass/Vol] 79 mg/dL Normal 74-106 [facility] Comment on above: Performed By: #### M G, BNP, CMP #### [facility] [address] [place] [address] Dr. Celina Venegas Potassium [Moles/Vol] 3.8 mmol/L Normal 3.5-5.1 [facility] Comment on above: Performed By: #### M G, BNP, CMP #### [facility] [address] [place] [address] Dr. Celina Venegas Sodium [Moles/Vol] 140 mmol/L Normal 136-145 [facility] Comment on above: Performed By: #### M G, BNP, CMP #### [facility] [address] [place] [address] Dr. Celina Venegas Urea nitrogen [Mass/Vol] 17.0 mg/dL Normal 7.0-18.0 [facility] Comment on above: Performed By: #### M G, BNP, CMP #### [facility] [address] [place] [address] Dr. Celina Venegas Urea nitrogen/Creatinine [Mass ratio] 23.6 mg/mg Normal [facility] Comment on above: Performed By: #### M G, BNP, CMP #### [facility] [address] [place] [address] Dr. Celina Venegas CBC AUTO DIFFon 09-06-2022 BASO # 0.0 103/ul Normal 0.0-0.1 [facility] Comment on above: Performed By: #### M G, BNP, CMP #### [facility] [address] [place] [address] Dr. Celina Venegas Basophils/100 WBC (Bld) 0.2 % Normal 0.2-2.0 [facility] Comment on above: Performed By: #### M G, BNP, CMP #### [facility] [address] [place] [address] Dr. Celina Venegas EO # 0.0 103/ul Normal 0.0-0.7 [facility] Comment on above: Performed By: #### M G, BNP, CMP #### [facility] [address] [place] [address] Dr. Celina Venegas Eosinophils/100 WBC (Bld) 0.2 % Critically low 0.9-7.0 [facility] Comment on above: Performed By: #### M G, BNP, CMP #### [facility] [address] [place] [address] Dr. Celina Venegas Erythrocyte distribution width (RBC) [Ratio] 13.9 % Normal 11.0-15.0 [facility] Comment on above: Performed By: #### M G, BNP, CMP #### [facility] [address] [place] [address] Dr. Celina Venegas Hematocrit (Bld) [Volume fraction] 30.6 % Critically low 36.0-48.0 [facility] Comment on above: Performed By: #### M G, BNP, CMP #### [facility] [address] [place] [address] Dr. Celina Venegas Hemoglobin (Bld) [Mass/Vol] 9.2 g/dL Critically low 12.0-16.0 [facility] Comment on above: Performed By: #### M G, BNP, CMP #### [facility] [address] [place] [address] Dr. Celina Venegas IG # 0.07 10e3/ul Critically high 0.00-0.03 [facility] Comment on above: Performed By: #### M G, BNP, CMP #### [facility] [address] [place] [address] Dr. Celina Venegas IG % 0.6 % Critically high 0.0-0.5 [facility] Comment on above: Performed By: #### M G, BNP, CMP #### [facility] [address] [place] [address] Dr. Celina Venegas LYMPH # 0.7 103/ul Critically low 1.2-3.8 [facility] Comment on above: Performed By: #### M G, BNP, CMP #### [facility] [address] [place] [address] Dr. Celina Venegas Lymphocytes/100 WBC (Bld) 5.4 % Critically low 20.5-60.0 [facility] Comment on above: Performed By: #### M G, BNP, CMP #### [facility] [address] [place] [address] Dr. Celina Venegas MANUAL DIFF REQ NO Normal [facility] Comment on above: Performed By: #### M G, BNP, CMP #### [facility] [address] [place] [address] Dr. Celina Venegas MCH (RBC) [Entitic mass] 25.1 pg Critically low 26.7-34.0 [facility] Comment on above: Performed By: #### M G, BNP, CMP #### [facility] [address] [place] [address] Dr. Celina Venegas MCHC (RBC) [Mass/Vol] 30.1 g/dL Normal 29.9-35.2 [facility] Comment on above: Performed By: #### M G, BNP, CMP #### [facility] [address] [place] [address] Dr. Celina Venegas MCV (RBC) [Entitic vol] 83.6 fL Normal 81.0-99.0 [facility] Comment on above: Performed By: #### M G, BNP, CMP #### [facility] [address] [place] [address] Dr. Celina Venegas MONO # 0.5 103/ul Normal 0.3-0.8 [facility] Comment on above: Performed By: #### M G, BNP, CMP #### [facility] [address] [place] [address] Dr. Celina Venegas Monocytes/100 WBC (Bld) 3.6 % Normal 1.7-12.0 [facility] Comment on above: Performed By: #### M G, BNP, CMP #### [facility] [address] [address] [address] Celina Venegas NEUT # 11.4 103/ul Critically high 1.4-6.5 [facility] Comment on above: Performed By: #### M G, BNP, CMP #### [facility] [address] [address] [address] Celina Venegas Neutrophils/100 WBC (Bld) 90.0 % Critically high 43.0-75.0 [facility] Comment on above: Performed By: #### M G, BNP, CMP #### [facility] [address] [address] [address] Celina Venegas Platelet mean volume (Bld) [Entitic vol] 10.5 fL Normal 9.5-13.5 [facility] Comment on above: Performed By: #### M G, BNP, CMP #### [facility] [address] [place] [address] Dr. Celina Venegas PLT 281 103/ul Normal 150-450 [facility] Comment on above: Performed By: #### M G, BNP, CMP #### [facility] [address] [place] [address] Dr. Celina Venegas RBC 3.66 106/ul Critically low 4.20-5.40 [facility] Comment on above: Performed By: #### M G, BNP, CMP #### [facility] [address] [place] [address] Dr. Celina Venegas WBC 12.7 103/ul Critically high 4.0-11.0 [facility] Comment on above: Performed By: #### M G, BNP, CMP #### [facility] [address] [place] [address] Dr. Celina Venegas LIVER PROFILEon 09-06-2022 Albumin [Mass/Vol] 2.4 g/dL Critically low 3.4-5.0 [facility] Comment on above: Performed By: #### M G, BNP, CMP #### [facility] [address] [place] [address] Dr. Celina Venegas Albumin/Globulin [Mass ratio] 0.6 {ratio} Normal [facility] Comment on above: Performed By: #### M G, BNP, CMP #### [facility] [address] [place] [address] Dr. Celina Venegas ALP [Catalytic activity/Vol] 118 U/L Critically high 46-116 [facility] Comment on above: Performed By: #### M G, BNP, CMP #### [facility] [address] [place] [address] Dr. Celina Venegas ALT [Catalytic activity/Vol] 16 U/L Normal 14-59 [facility] Comment on above: Performed By: #### M G, BNP, CMP #### [facility] [address] [place] [address] Dr. Celina Venegas AST [Catalytic activity/Vol] 11 U/L Critically low 15-37 [facility] Comment on above: Performed By: #### M G, BNP, CMP #### [facility] [address] [place] [address] Dr. Celina Venegas BILI, CONJUGATED 0.6 mg/dL Critically high 0.0-0.2 [facility] Comment on above: Performed By: #### M G, BNP, CMP #### [facility] [address] [place] [address] Dr. Celina Venegas Bilirubin [Mass/Vol] 1.2 mg/dL Critically high 0.2-1.0 [facility] Comment on above: Performed By: #### M G, BNP, CMP #### [facility] [address] [place] [address] Dr. Celina Venegas Globulin (S) [Mass/Vol] 3.7 g/dL Normal [facility] Comment on above: Performed By: #### M G, BNP, CMP #### [facility] [address] [place] [address] Dr. Celina Venegas Protein [Mass/Vol] 6.1 g/dL Critically low 6.4-8.2 [facility] Comment on above: Performed By: #### M G, BNP, CMP #### [facility] [address] [place] [address] Dr. Celina Venegas MAGNESIUMon 09-06-2022 Magnesium [Mass/Vol] 1.4 mg/dL Critically low 1.8-2.4 [facility] Comment on above: Performed By: #### M G, BNP, CMP #### [facility] [address] [place] [address] Dr. Celina Venegas PROF CHEM 8 (BAS METB)on Anion gap [Moles/Vol] 12.5 mmol/L Normal [facility] Comment on above: Performed By: #### M G, BNP, CMP #### [facility] [address] [place] [address] Dr. Celina Venegas Calcium [Mass/Vol] 9.3 mg/dL Normal 8.5-10.1 [facility] Comment on above: Performed By: #### M G, BNP, CMP #### [facility] [address] [place] [address] Dr. Celina Venegas Chloride [Moles/Vol] 105 mmol/L Normal 98-107 [facility] Comment on above: Performed By: #### M G, BNP, CMP #### [facility] [address] [place] [address] Dr. Celina Venegas CO2 [Moles/Vol] 23.6 mmol/L Normal 21.0-32.0 [facility] Comment on above: Performed By: #### M G, BNP, CMP #### [facility] [address] [place] [address] Dr. Celina Venegas Creatinine [Mass/Vol] 0.80 mg/dL Normal 0.55-1.02 [facility] Comment on above: Performed By: #### M G, BNP, CMP #### [facility] [address] [place] [address] Dr. Celina Venegas EGFR-AF GUINEAN >60 Normal >=60 [facility] Comment on above: Performed By: #### M G, BNP, CMP #### [facility] [address] [place] [address] Dr. Celina Venegas EGFR-NON AF GUINEAN >60 Normal >=60 [facility] Comment on above: Performed By: #### M G, BNP, CMP #### [facility] [address] [address] [address] Celina Venegas Glucose [Mass/Vol] 106 mg/dL Normal 74-106 [facility] Comment on above: Performed By: #### M G, BNP, CMP #### [facility] [address] [address] [address] Celina Venegas Potassium [Moles/Vol] 3.1 mmol/L Critically low 3.5-5.1 [facility] Comment on above: Performed By: #### M G, BNP, CMP #### [facility] [address] [address] [address] Ceilna Venegas Sodium [Moles/Vol] 138 mmol/L Normal 136-145 [facility] Comment on above: Performed By: #### M G, BNP, CMP #### [facility] [address] [address] [address] Celina Venegas Urea nitrogen [Mass/Vol] 19.0 mg/dL Critically high 7.0-18.0 [facility] Comment on above: Performed By: #### M G, BNP, CMP #### [facility] [address] [address] [address] Celina Venegas Urea nitrogen/Creatinine [Mass ratio] 23.8 mg/mg Normal [facility] Comment on above: Performed By: #### M G, BNP, CMP #### [facility] [address] [address] [address] Celina Venegas XR ABD FLAT UP_PA [...] THADDEUS LO Date: 2022-09-06 17:36 Normal [facility] CBC AUTO DIFFon 09-05-2022 BASO # 0.0 103/ul Normal 0.0-0.1 [facility] Comment on above: Performed By: #### C BC #### [facility] [address] [address] [address] Celina Venegas Basophils/100 WBC (Bld) 0.1 % Critically low 0.2-2.0 [facility] Comment on above: Performed By: #### C BC #### [facility] [address] [address] [address] Celina Venegas EO # 0.0 103/ul Normal 0.0-0.7 [facility] Comment on above: Performed By: #### C BC #### [facility] [address] [address] [address] Celina Venegas Eosinophils/100 WBC (Bld) 0.0 % Critically low 0.9-7.0 [facility] Comment on above: Performed By: #### C BC #### [facility] [address] [address] [address] Celina Venegas Erythrocyte distribution width (RBC) [Ratio] 13.8 % Normal 11.0-15.0 [facility] Comment on above: Performed By: #### C BC #### [facility] [address] [address] [address] Celina Venegas Hematocrit (Bld) [Volume fraction] 35.8 % Critically low 36.0-48.0 [facility] Comment on above: Performed By: #### C BC #### [facility] [address] [address] [address] Celina Venegas Hemoglobin (Bld) [Mass/Vol] 11.1 g/dL Critically low 12.0-16.0 [facility] Comment on above: Performed By: #### C BC #### [facility] [address] [address] [address] Celina Venegas IG # 0.08 10e3/ul Critically high 0.00-0.03 [facility] Comment on above: Performed By: #### C BC #### [facility] [address] [address] [address] Celina Venegas IG % 0.4 % Normal 0.0-0.5 [facility] Comment on above: Performed By: #### C BC #### [facility] [address] [place] [address] Dr. Celina Venegas LYMPH # 0.6 103/ul Critically low 1.2-3.8 [facility] Comment on above: Performed By: #### C BC #### [facility] [address] [place] [address] Dr. Celina Venegas Lymphocytes/100 WBC (Bld) 3.4 % Critically low 20.5-60.0 [facility] Comment on above: Performed By: #### C BC #### [facility] [address] [place] [address] Dr. Celina Venegas MANUAL DIFF REQ NO Normal [facility] Comment on above: Performed By: #### C BC #### [facility] [address] [place] [address] Dr. Celina Venegas MCH (RBC) [Entitic mass] 25.5 pg Critically low 26.7-34.0 [facility] Comment on above: Performed By: #### C BC #### [facility] [address] [place] [address] Dr. Celina Venegas MCHC (RBC) [Mass/Vol] 31.0 g/dL Normal 29.9-35.2 [facility] Comment on above: Performed By: #### C BC #### [facility] [address] [place] [address] Dr. Celina Venegas MCV (RBC) [Entitic vol] 82.1 fL Normal 81.0-99.0 [facility] Comment on above: Performed By: #### C BC #### [facility] [address] [place] [address] Dr. Celina Venegsa MONO # 0.5 103/ul Normal 0.3-0.8 [facility] Comment on above: Performed By: #### C BC #### [facility] [address] [address] [address] Celina Venegas Monocytes/100 WBC (Bld) 2.9 % Normal 1.7-12.0 [facility] Comment on above: Performed By: #### C BC #### [facility] [address] [address] [address] Celina Venegas NEUT # 17.3 103/ul Critically high 1.4-6.5 [facility] Comment on above: Performed By: #### C BC #### [facility] [address] [place] [address] Dr. Celina Venegas Neutrophils/100 WBC (Bld) 93.2 % Critically high 43.0-75.0 [facility] Comment on above: Performed By: #### C BC #### [facility] [address] [place] [address] Dr. Celina Venegas Platelet mean volume (Bld) [Entitic vol] 10.1 fL Normal 9.5-13.5 [facility] Comment on above: Performed By: #### C BC #### [facility] [address] [place] [address] Dr. Celina Venegas PLT 367 103/ul Normal 150-450 [facility] Comment on above: Performed By: #### C BC #### [facility] [address] [place] [address] Dr. Celina Venegas RBC 4.36 106/ul Normal 4.20-5.40 [facility] Comment on above: Performed By: #### C BC #### [facility] [address] [place] [address] Dr. Celina Venegas WBC 18.6 103/ul Critically high 4.0-11.0 [facility] Comment on above: Performed By: #### C BC #### [facility] [address] [place] [address] Dr. Celina Venegas LIVER PROFILEon 09-05-2022 Albumin [Mass/Vol] 3.0 g/dL Critically low 3.4-5.0 [facility] Comment on above: Performed By: #### H STROPN #### [facility] [address] [address] [address] Celina Venegas Albumin/Globulin [Mass ratio] 0.7 {ratio} Normal [facility] Comment on above: Performed By: #### H STROPN #### [facility] [address] [address] [address] Celina Venegas ALP [Catalytic activity/Vol] 132 U/L Critically high 46-116 [facility] Comment on above: Performed By: #### H STROPN #### [facility] [address] [address] [address] Celina Venegas ALT [Catalytic activity/Vol] 20 U/L Normal 14-59 [facility] Comment on above: Performed By: #### H STROPN #### [facility] [address] [place] [address] Dr. Celina Venegas AST [Catalytic activity/Vol] 15 U/L Normal 15-37 [facility] Comment on above: Performed By: #### H STROPN #### [facility] [address] [place] [address] Dr. Celina Venegas BILI, CONJUGATED 0.7 mg/dL Critically high 0.0-0.2 [facility] Comment on above: Performed By: #### H STROPN #### [facility] [address] [place] [address] Dr. Celina Venegas Bilirubin [Mass/Vol] 1.4 mg/dL Critically high 0.2-1.0 [facility] Comment on above: Performed By: #### H STROPN #### [facility] [address] [place] [address] Dr. Celina Venegas Globulin (S) [Mass/Vol] 4.1 g/dL Normal T [facility] Comment on above: Performed By: #### H STROPN #### [facility] [address] [place] [address] Dr. Celina Venegas Protein [Mass/Vol] 7.1 g/dL Normal 6.4-8.2 [facility] Comment on above: Performed By: #### H STROPN #### [facility] [address] [place] [address] Dr. Celina Venegas MAGNESIUMon 09-05-2022 Magnesium [Mass/Vol] 1.5 mg/dL Critically low 1.8-2.4 [facility] Comment on above: Performed By: #### C BC #### [facility] [address] [place] [address] Dr. Celina Venegas MRI ABDOMEN WO CONon [...] THADDEUS LO Date: 2022-09-05 13:29 Normal [facility] PROF CHEM 8 (BAS METB)on Anion gap [Moles/Vol] 13.5 mmol/L Normal [facility] Comment on above: Performed By: #### C BC #### [facility] [address] [place] [address] Dr. Celina Venegas Calcium [Mass/Vol] 8.8 mg/dL Normal 8.5-10.1 [facility] Comment on above: Performed By: #### C BC #### [facility] [address] [place] [address] Dr. Celina Venegas Chloride [Moles/Vol] 106 mmol/L Normal 98-107 [facility] Comment on above: Performed By: #### C BC #### [facility] [address] [place] [address] Dr. Celina Venegas CO2 [Moles/Vol] 24.0 mmol/L Normal 21.0-32.0 [facility] Comment on above: Performed By: #### C BC #### [facility] [address] [address] [address] Celina Venegas Creatinine [Mass/Vol] 1.31 mg/dL Critically high 0.55-1.02 [facility] Comment on above: Performed By: #### C BC #### [facility] [address] [address] [address] Celina Venegas EGFR-AF GUINEAN 51 mL/min/1.73m2 Critically low >=60 [facility] Comment on above: Performed By: #### C BC #### [facility] [address] [address] [address] Celina Venegas EGFR-NON AF GUINEAN 42 mL/min/1.73m2 Critically low >=60 [facility] Comment on above: Performed By: #### C BC #### [facility] [address] [address] [address] Celina Venegas Glucose [Mass/Vol] 127 mg/dL Critically high 74-106 [facility] Comment on above: Performed By: #### C BC #### [facility] [address] [address] [address] Celina Venegas Potassium [Moles/Vol] 3.5 mmol/L Normal 3.5-5.1 [facility] Comment on above: Performed By: #### C BC #### [facility] [address] [address] [address] Celina Venegas Sodium [Moles/Vol] 140 mmol/L Normal 136-145 [facility] Comment on above: Performed By: #### C BC #### [facility] [address] [address] [address] Celina Venegas Urea nitrogen [Mass/Vol] 40.0 mg/dL Critically high 7.0-18.0 [facility] Comment on above: Performed By: #### C BC #### [facility] [address] [address] [address] Celina Venegas Urea nitrogen/Creatinine [Mass ratio] 30.5 mg/mg Normal [facility] Comment on above: Performed By: #### C BC #### [facility] [address] [place] [address] Dr. Celina Venegas TROPONIN, HIGH SENSITIVITYon 09-05-2022 HSTROP 48.5 pg/mL Normal 4.0-51.3 [facility] Comment on above: Result Comment: CUT- OFF POINTS HAVE BEEN ESTABLISHED BASED ON THE FOURTH UNIVERSAL DEFINITIONS OF MYOCARDIAL INFARCTION. THE UPPER REFERENCE LIMIT (URL) OF TROPONIN, DEFINED THE 99TH PERCENTILE OF cTnI DISTRIBUTION IN A REFERENCE POPULATION, HAS BEEN CONFIRMED THE DECISION THRESHOLD FOR [place] DIAGNOSIS. Performed By: #### B [id number] #### [facility] [address] [place] [address] Dr. Celina Venegas AMYLASEon 09-04-2022 Amylase [Catalytic activity/Vol] 65 U/L Normal 25-115 [facility] Comment on above: Performed By: #### M G, BNP, CMP #### [facility] [address] [place] [address] Dr. Celina Venegas CBC AUTO DIFFon 09-04-2022 BASO # 0.0 103/ul Normal 0.0-0.1 [facility] Comment on above: Performed By: #### B [id number] #### [facility] [address] [place] [address] Dr. Celina Venegas Basophils/100 WBC (Bld) 0.2 % Normal 0.2-2.0 [facility] Comment on above: Performed By: #### B [id number] #### [facility] [address] [place] [address] Dr. Celina Venegas EO # 0.0 103/ul Normal 0.0-0.7 [facility] Comment on above: Performed By: #### B [id number] #### [facility] [address] [place] [address] Dr. Celina Venegas Eosinophils/100 WBC (Bld) 0.2 % Critically low 0.9-7.0 [facility] Comment on above: Performed By: #### B [id number] #### [facility] [address] [place] [address] Dr. Celina Venegas Erythrocyte distribution width (RBC) [Ratio] 13.7 % Normal 11.0-15.0 [facility] Comment on above: Performed By: #### B [id number] #### [facility] [address] [place] [address] Dr. Celina Venegas Hematocrit (Bld) [Volume fraction] 41.7 % Normal 36.0-48.0 [facility] Comment on above: Performed By: #### B [id number] #### [facility] [address] [place] [address] Dr. Celina Venegas Hemoglobin (Bld) [Mass/Vol] 13.3 g/dL Normal 12.0-16.0 [facility] Comment on above: Performed By: #### B [id number] #### [facility] [address] [place] [address] Dr. Celina Venegas IG # 0.12 10e3/ul Critically high 0.00-0.03 [facility] Comment on above: Performed By: #### B [id number] #### [facility] [address] [place] [address] Dr. Celina Venegas IG % 0.6 % Critically high 0.0-0.5 [facility] Comment on above: Performed By: #### B [id number] #### [facility] [address] [place] [address] Dr. Celina Venegas LYMPH # 1.2 103/ul Normal 1.2-3.8 [facility] Comment on above: Performed By: #### B [id number] #### [facility] [address] [place] [address] Dr. Celina Venegas Lymphocytes/100 WBC (Bld) 5.7 % Critically low 20.5-60.0 [facility] Comment on above: Performed By: #### B [id number] #### [facility] [address] [place] [address] Dr. Celina Venegas MANUAL DIFF REQ NO Normal [facility] Comment on above: Performed By: #### B [id number] #### [facility] [address] [address] [address] Celina Venegas MCH (RBC) [Entitic mass] 25.3 pg Critically low 26.7-34.0 [facility] Comment on above: Performed By: #### B [id number] #### [facility] [address] [address] [address] Celina Venegas MCHC (RBC) [Mass/Vol] 31.9 g/dL Normal 29.9-35.2 [facility] Comment on above: Performed By: #### B [id number] #### [facility] [address] [place] [address] Dr. Celina Venegas MCV (RBC) [Entitic vol] 79.4 fL Critically low 81.0-99. 0 [facility] Comment on above: Performed By: #### B [id number] #### [facility] [address] [place] [address] Dr. Celina Venegas MONO # 1.0 103/ul Critically high 0.3-0.8 [facility] Comment on above: Performed By: #### B [id number] #### [facility] [address] [place] [address] Dr. Celina Venegas Monocytes/100 WBC (Bld) 4.5 % Normal 1.7-12.0 [facility] Comment on above: Performed By: #### B [id number] #### [facility] [address] [place] [address] Dr. Celina Venegas NEUT # 18.8 103/ul Critically high 1.4-6.5 [facility] Comment on above: Performed By: #### B [id number] #### [facility] [address] [place] [address] Dr. Celina Venegas Neutrophils/100 WBC (Bld) 88.8 % Critically high 43.0-75.0 [facility] Comment on above: Performed By: #### B [id number] #### [facility] [address] [place] [address] Dr. Celina Venegas Platelet mean volume (Bld) [Entitic vol] 10.0 fL Normal 9.5-13.5 [facility] Comment on above: Performed By: #### B [id number] #### [facility] [address], [place] [address] Dr. Celina Venegas PLT 563 103/ul Critically high 150-450 [facility] Comment on above: Performed By: #### B [id number] #### [facility] [address], [place] [address] Dr. Celina Venegas RBC 5.25 106/ul Normal 4.20-5.40 [facility] Comment on above: Performed By: #### B [id number] #### [facility] [address], [place] [address] Dr. Celina Venegas WBC 21.2 103/ul Critically high 4.0-11.0 [facility] Comment on above: Performed By: #### B [id number] #### [facility] [address], [place] [address] ABD/PELV W CONon [...] technique. HISTORY: GENERALIZED ABDOMINAL PAIN COMPARISON: 08/20/2022 _ FINDINGS: Lower chest: The lower lungs are [...] abscess. Abdominal wall: Unremarkable without acute abnormality. ____ IMPRESSION: 1. Postoperative changes in the right lower quadrant, related to recent appendectomy. There is a small fluid and gas loculation within the right hemipelvis, suspicious for a small developing abscess. 2. Mild increasing dilatation of the biliary tree without gross obstructing stone or mass. Consider further evaluation with MRCP. Electronically authenticated by: RAJ EDGAR Date: 2022-09-04 21:17 Normal [facility] CULTURE BLOODon 09-04-2022 Microscopic examination of blood, culture Culture Observations: NO GROWTH AT 5 DAYS. Normal [facility] Comment on above: Performed By: #### B [id number] #### [facility] [address] [place] [address] Dr. Celina Venegas Performed By: #### H STROPN #### [facility] [address] [place] [address] Dr. Celina Venegas ER URINE PROFILEon 3 Bilirubin Ql (U) Negative Normal NEGATIVE [facility] Comment on above: Performed By: #### H STROPN #### [facility] [address] [place] [address] Dr. Celina Venegas Clarity (U) CLEAR Normal CLEAR [facility] Comment on above: Performed By: #### H STROPN #### [facility] [address] [place] [address] Dr. Celina Venegas Color (U) LT. YELLOW Normal YELLOW [facility] Comment on above: Performed By: #### H STROPN #### [facility] [address] [place] [address] Dr. Celina SHEPARD A micrscopic examination will be performed if indicated. Normal [facility] Comment on above: Performed By: #### H STROPN #### [facility] [address] [place] [address] Dr. Celina Venegas Glucose Ql (U) Negative Normal NEGATIVE [facility] Comment on above: Performed By: #### H STROPN #### [facility] [address] [place] [address] Dr. Celina Venegas Hemoglobin Ql (U) Negative Normal NEGATIVE [facility] Comment on above: Performed By: #### H STROPN #### [facility] [address] [address] [address] Celina Venegas Ketones Ql (U) TRACE Abnormal NEGATIVE [facility] Comment on above: Performed By: #### H STROPN #### [facility] [address] [place] [address] Dr. Celina Venegas LEUKOCYTES Negative Normal NEGATIVE [facility] Comment on above: Performed By: #### H STROPN #### [facility] [address] [place] [address] Dr. Celina Venegas Nitrite Ql (U) Negative Normal NEGATIVE [facility] Comment on above: Performed By: #### H STROPN #### [facility] [address] [place] [address] Dr. Celina Venegas pH (U) 6.0 [pH] Normal 5-9 [facility] Comment on above: Performed By: #### H STROPN #### [facility] [address] [place] [address] Dr. Celina Venegas SPEC GRAVITY <=1.005 Abnormal 1.005-<=1.02 5 [facility] Comment on above: Performed By: #### H STROPN #### [facility] [address] [place] [address] Dr. Celina Venegas UA PROTEIN TRACE Normal NEGATIVE/ TRACE [facility] Comment on above: Performed By: #### H STROPN #### [facility] [address] [place] [address] Dr. Celina Venegas UR MICRO IND NOT INDICATED Normal [facility] Comment on above: Performed By: #### H STROPN #### [facility] [address] [place] [address] Dr. Celina Venegas Urobilinogen Qn (U) 0.2 {Pamela'U}/dL Normal 0.2 - 1. 0 [facility] Comment on above: Performed By: #### H STROPN #### [facility] [address] [place] [address] Dr. Celina Venegas LACTATE/LACTIC ACIDon 2022 Lactate [Moles/Vol] 1.4 mmol/L Normal 0.4-2.0 [facility] Comment on above: Performed By: #### B [id number] #### [facility] [address] [place] [address] Dr. Celina Venegas LIPASEon 09-04-2022 Lipase [Catalytic activity/Vol] 194.0 U/L Normal 73.0-393.0 [facility] Comment on above: Performed By: #### M G, BNP, CMP #### [facility] [address] [place] [address] Dr. Celina Venegas PREG HCG QUALon 09-04-2022 , QUAL Negative Normal NEGATIVE [facility] Comment on above: Performed By: #### P REG #### [facility] [address] [place] [address] Dr. Celina Venegas PROF 14(COMP METB)on 023 Albumin [Mass/Vol] 3.6 g/dL Normal 3.4-5.0 [facility] Comment on above: Performed By: #### M G, BNP, CMP #### [facility] [address] [place] [address] Dr. Celina Venegas Albumin/Globulin [Mass ratio] 0.8 {ratio} Normal [facility] Comment on above: Performed By: #### M G, BNP, CMP #### [facility] [address] [place] [address] Dr. Celina Venegas ALP [Catalytic activity/Vol] 175 U/L Critically high 46-116 [facility] Comment on above: Performed By: #### M G, BNP, CMP #### [facility] [address] [address] [address] Celina Venegas ALT [Catalytic activity/Vol] 22 U/L Normal 14-59 [facility] Comment on above: Performed By: #### M G, BNP, CMP #### [facility] [address] [address] [address] Celina Venegas Anion gap [Moles/Vol] 15.8 mmol/L Normal [facility] Comment on above: Performed By: #### M G, BNP, CMP #### [facility] [address] [address] [address] Celina Venegas AST [Catalytic activity/Vol] 16 U/L Normal 15-37 [facility] Comment on above: Performed By: #### M G, BNP, CMP #### [facility] [address] [address] [address] Celina Venegas Bilirubin [Mass/Vol] 0.7 mg/dL Normal 0.2-1.0 [facility] Comment on above: Performed By: #### M G, BNP, CMP #### [facility] [address] [address] [address] Celina Venegas Calcium [Mass/Vol] 9.2 mg/dL Normal 8.5-10.1 [facility] Comment on above: Performed By: #### M G, BNP, CMP #### [facility] [address] [address] [address] Celina Venegas Chloride [Moles/Vol] 99 mmol/L Normal 98-107 [facility] Comment on above: Performed By: #### M G, BNP, CMP #### [facility] [address] [address] [address] Celina Venegas CO2 [Moles/Vol] 25.1 mmol/L Normal 21.0-32.0 [facility] Comment on above: Performed By: #### M G, BNP, CMP #### [facility] [address] [address] [address] Celina Venegas Creatinine [Mass/Vol] 1.90 mg/dL Critically high 0.55-1.02 [facility] Comment on above: Performed By: #### M G, BNP, CMP #### [facility] [address] [place] [address] Dr. Celina Venegas EGFR-AF GUINEAN 34 mL/min/1.73m2 Critically low >=60 [facility] Comment on above: Performed By: #### M G, BNP, CMP #### [facility] [address] [place] [address] Dr. Celina Venegas EGFR-NON AF GUINEAN 28 mL/min/1.73m2 Critically low >=60 [facility] Comment on above: Performed By: #### M G, BNP, CMP #### [facility] [address] [place] [address] Dr. Celina Venegas Globulin (S) [Mass/Vol] 4.4 g/dL Normal [facility] Comment on above: Performed By: #### M G, BNP, CMP #### [facility] [address] [place] [address] Dr. Celina Venegas Glucose [Mass/Vol] 139 mg/dL Critically high 74-106 [facility] Comment on above: Performed By: #### M G, BNP, CMP #### [facility] [address] [place] [address] Dr. Celina Venegas Potassium [Moles/Vol] 2.8 mmol/L Critically low 3.5-5.1 [facility] Comment on above: Performed By: #### M G, BNP, CMP #### [facility] [address] [place] [address] Dr. Celina Venegas Protein [Mass/Vol] 8.0 g/dL Normal 6.4-8.2 [facility] Comment on above: Performed By: #### M G, BNP, CMP #### [facility] [address] [place] [address] Dr. Celina Venegas Sodium [Moles/Vol] 136 mmol/L Normal 136-145 [facility] Comment on above: Performed By: #### M G, BNP, CMP #### [facility] [address] [address] [address] Celina Venegas Urea nitrogen [Mass/Vol] 49.0 mg/dL Critically high 7.0-18.0 [facility] Comment on above: Performed By: #### M G, BNP, CMP #### [facility] [address], [place] [address] Dr. Celina Venegas Urea nitrogen/Creatinine [Mass ratio] 25.8 mg/mg Normal [facility] Comment on above: Performed By: #### M G, BNP, CMP #### [facility] [address], [place] [address] Dr. Celina Venegas TROPONIN, HIGH SENSITIVITYon 09-04-2022 HSTROP 63.4 pg/mL Critically high 4.0-51.[address] [facility] Comment on above: Result Comment: CUT- OFF POINTS HAVE BEEN ESTABLISHED BASED ON THE FOURTH UNIVERSAL DEFINITIONS OF MYOCARDIAL INFARCTION. THE UPPER REFERENCE LIMIT (URL) OF TROPONIN, DEFINED THE 99TH PERCENTILE OF cTnI DISTRIBUTION IN A REFERENCE POPULATION, HAS BEEN CONFIRMED THE DECISION THRESHOLD FOR [place] DIAGNOSIS. Performed By: #### B [id number] #### [facility] [address] [place] [address] Dr. Celina Venegas XR CHEST 1 Von [...] FELICIANO QUIROZ Date: 2022-09-04 20:25 Normal [facility] CARDIAC LOUISE ADMITon 023 CK [Catalytic activity/Vol] 10 U/L Critically low 26-192 [facility] Comment on above: Performed By: #### B [id number] #### [facility] [address] [address] [address] Celina Venegas CK.MB [Mass/Vol] ng/mL Normal <=3.60 [facility] Comment on above: Performed By: #### B [id number] #### [facility] [address] [place] [address] Dr. Celina Venegas HSTROP 11.8 pg/mL Normal 4.0-51.3 [facility] Comment on above: Result Comment: CUT- OFF POINTS HAVE BEEN ESTABLISHED BASED ON THE FOURTH UNIVERSAL DEFINITIONS OF MYOCARDIAL INFARCTION. THE UPPER REFERENCE LIMIT (URL) OF TROPONIN, DEFINED THE 99TH PERCENTILE OF cTnI DISTRIBUTION IN A REFERENCE POPULATION, HAS BEEN CONFIRMED THE DECISION THRESHOLD FOR [place] DIAGNOSIS. Performed By: #### B [id number] #### [facility] [address] [place] [address] Dr. Celina Venegas SHAWANDA 27 ng/mL Normal 9-82 [facility] Comment on above: Performed By: #### B [id number] #### [facility] [address] [place] [address] Dr. Celina Venegas CBC AUTO DIFFon 08-20-2022 BASO # 0.0 103/ul Normal 0.0-0.1 [facility] Comment on above: Performed By: #### P REG #### [facility] [address] [place] [address] Dr. Celina Venegas Basophils/100 WBC (Bld) 0.3 % Normal 0.2-2.0 [facility] Comment on above: Performed By: #### P REG #### [facility] [address] [place] [address] Dr. Celina Venegas EO # 0.0 103/ul Normal 0.0-0.7 [facility] Comment on above: Performed By: #### P REG #### [facility] [address] [place] [address] Dr. Celina Venegas Eosinophils/100 WBC (Bld) 0.3 % Critically low 0.9-7.0 [facility] Comment on above: Performed By: #### P REG #### [facility] [address] [place] [address] Dr. Celina Venegas Erythrocyte distribution width (RBC) [Ratio] 12.7 % Normal 11.0-15.0 [facility] Comment on above: Performed By: #### P REG #### [facility] [address] [address] [address] Celina Venegas Hematocrit (Bld) [Volume fraction] 35.8 % Critically low 36.0-48.0 [facility] Comment on above: Performed By: #### P REG #### [facility] [address] [address] [address] Celina Venegas Hemoglobin (Bld) [Mass/Vol] 11.5 g/dL Critically low 12.0-16.0 [facility] Comment on above: Performed By: #### P REG #### [facility] [address] [address] [address] Celina Venegas IG # 0.04 10e3/ul Critically high 0.00-0.03 [facility] Comment on above: Performed By: #### P REG #### [facility] [address] [place] [address] Dr. Celina Venegas IG % 0.4 % Normal 0.0-0.5 [facility] Comment on above: Performed By: #### P REG #### [facility] [address] [place] [address] Dr. Celina Venegas LYMPH # 1.6 103/ul Normal 1.2-3.8 [facility] Comment on above: Performed By: #### P REG #### [facility] [address] [place] [address] Dr. Celina Venegas Lymphocytes/100 WBC (Bld) 14.0 % Critically low 20.5-60.0 [facility] Comment on above: Performed By: #### P REG #### [facility] [address] [place] [address] Dr. Celina Venegas MANUAL DIFF REQ NO Normal [facility] Comment on above: Performed By: #### P REG #### [facility] [address] [place] [address] Dr. Celina Venegas MCH (RBC) [Entitic mass] 25.8 pg Critically low 26.7-34.0 [facility] Comment on above: Performed By: #### P REG #### [facility] [address] [place] [address] Dr. Celina Venegas MCHC (RBC) [Mass/Vol] 32.1 g/dL Normal 29.9-35.2 [facility] Comment on above: Performed By: #### P REG #### [facility] [address] [address] [address] Celina Venegas MCV (RBC) [Entitic vol] 80.3 fL Critically low 81.0-99. 0 [facility] Comment on above: Performed By: #### P REG #### [facility] [address] [address] [address] Celina Venegas MONO # 0.9 103/ul Critically high 0.3-0.8 [facility] Comment on above: Performed By: #### P REG #### [facility] [address] [address] [address] Celina Venegas Monocytes/100 WBC (Bld) 8.2 % Normal 1.7-12.0 [facility] Comment on above: Performed By: #### P REG #### [facility] [address] [address] [address] Celina Venegas NEUT # 8.7 103/ul Critically high 1.4-6.5 [facility] Comment on above: Performed By: #### P REG #### [facility] [address] [address] [address] Celina Venegas Neutrophils/100 WBC (Bld) 76.8 % Critically high 43.0-75.0 [facility] Comment on above: Performed By: #### P REG #### [facility] [address] [address] [address] Celina Venegas Platelet mean volume (Bld) [Entitic vol] 10.7 fL Normal 9.5-13.5 [facility] Comment on above: Performed By: #### P REG #### [facility] [address] [address] [address] Celina Venegas PLT 357 103/ul Normal 150-450 [facility] Comment on above: Performed By: #### P REG #### [facility] [address] [id number] Celina Venegas RBC 4.46 106/ul Normal 4.20-5.40 [facility] Comment on above: Performed By: #### P REG #### [facility] [address], [place] [address] Dr. Celina Venegas WBC 11.4 103/ul Critically high 4.0-11.0 [facility] Comment on above: Performed By: #### P REG #### [facility] [address], [place] [address] ABD/PELV W CONon [...] KAYDEN AGUILAR Date: 2022-08-20 10:51 Normal [facility] Covid-19 PCR ([facility])on SARS-CoV-2 (COVID-19) RNA ELVA+probe Ql (Unsp spec) Not detected Normal NOT DETECTED [facility] Comment on above: Result Comment: When [...] for this test is supported by the [place] of Health and Human Service's declaration that [...] used). Performed By: #### P REG #### [facility] [address], [place] [address] Dr. Celina Venegas ER URINE PROFILEon 3 Bilirubin Ql (U) Negative Normal NEGATIVE [facility] Comment on above: Performed By: #### M G, BNP, CMP #### [facility] [address], [place] [address] Dr. Celina Venegas Clarity (U) CLEAR Normal CLEAR [facility] Comment on above: Performed By: #### M G, BNP, CMP #### [facility] [address] [address] [address] Celina Venegas Color (U) YELLOW Normal YELLOW [facility] Comment on above: Performed By: #### M G, BNP, CMP #### [facility] [address] [address] [address] Celina SHEPARD A micrscopic examination will be performed if indicated. Normal [facility] Comment on above: Performed By: #### M G, BNP, CMP #### [facility] [address] [address] [address] Celina Venegas Glucose Ql (U) Negative Normal NEGATIVE [facility] Comment on above: Performed By: #### M G, BNP, CMP #### [facility] [address] [place] [address] Dr. Celina Venegas Hemoglobin Ql (U) Negative Normal NEGATIVE [facility] Comment on above: Performed By: #### M G, BNP, CMP #### [facility] [address] [place] [address] Dr. Celina Venegas Ketones Ql (U) Negative Normal NEGATIVE [facility] Comment on above: Performed By: #### M G, BNP, CMP #### [facility] [address] [place] [address] Dr. Celina Venegas LEUKOCYTES Negative Normal NEGATIVE [facility] Comment on above: Performed By: #### M G, BNP, CMP #### [facility] [address] [place] [address] Dr. Celina Venegas Nitrite Ql (U) Negative Normal NEGATIVE [facility] Comment on above: Performed By: #### M G, BNP, CMP #### [facility] [address] [place] [address] Dr. Celina Venegas pH (U) 7.0 [pH] Normal 5-9 [facility] Comment on above: Performed By: #### M G, BNP, CMP #### [facility] [address] [place] [address] Dr. Celina Venegas Protein (U) [Mass/Vol] 30 mg/dL Abnormal NEGAT LALO/ TRACE [facility] Comment on above: Performed By: #### M G, BNP, CMP #### [facility] [address] [place] [address] Dr. Celina Venegas SPEC GRAVITY 1.005 Normal 1.005-<=1.02 5 [facility] Comment on above: Performed By: #### M G, BNP, CMP #### [facility] [address] [place] [address] Dr. Celina Venegas UR MICRO IND INDICATED Normal [facility] Comment on above: Performed By: #### M G, BNP, CMP #### [facility] [address] [place] [address] Dr. Celina Venegas Urobilinogen Qn (U) 1.0 {Pamela'U}/dL Normal 0.2 - 1. 0 [facility] Comment on above: Performed By: #### M G, BNP, CMP #### [facility] [address] [place] [address] Dr. Celina Venegas PROF 14(COMP METB)on 023 Albumin [Mass/Vol] 3.2 g/dL Critically low 3.4-5.0 [facility] Comment on above: Performed By: #### P REG #### [facility] [address] [place] [address] Dr. Celina Venegas Albumin/Globulin [Mass ratio] 0.8 {ratio} Normal [facility] Comment on above: Performed By: #### P REG #### [facility] [address] [place] [address] Dr. Celina Venegas ALP [Catalytic activity/Vol] 190 U/L Critically high 46-116 [facility] Comment on above: Performed By: #### P REG #### [facility] [address] [place] [address] Dr. Celina Venegas ALT [Catalytic activity/Vol] 44 U/L Normal 14-59 [facility] Comment on above: Performed By: #### P REG #### [facility] [address] [place] [address] Dr. Celina Venegas Anion gap [Moles/Vol] 15.6 mmol/L Normal [facility] Comment on above: Performed By: #### P REG #### [facility] [address] [address] [address] Celina Venegas AST [Catalytic activity/Vol] 36 U/L Normal 15-37 [facility] Comment on above: Performed By: #### P REG #### [facility] [address] [address] [address] Celina Venegas Bilirubin [Mass/Vol] 0.8 mg/dL Normal 0.2-1.0 [facility] Comment on above: Performed By: #### P REG #### [facility] [address] [address] [address] Celina Venegas Calcium [Mass/Vol] 9.7 mg/dL Normal 8.5-10.1 [facility] Comment on above: Performed By: #### P REG #### [facility] [address] [address] [address] Celina Venegas Chloride [Moles/Vol] 104 mmol/L Normal 98-107 [facility] Comment on above: Performed By: #### P REG #### [facility] [address] [address] [address] Celina Venegas CO2 [Moles/Vol] 21.3 mmol/L Normal 21.0-32.0 [facility] Comment on above: Performed By: #### P REG #### [facility] [address] [address] [address] Celina Venegas Creatinine [Mass/Vol] 0.70 mg/dL Normal 0.55-1.02 [facility] Comment on above: Performed By: #### P REG #### [facility] [address] [address] [address] Celina Venegas EGFR-AF GUINEAN >60 Normal >=60 [facility] Comment on above: Performed By: #### P REG #### [facility] [address] [address] [address] Celina Venegas EGFR-NON AF GUINEAN >60 Normal >=60 [facility] Comment on above: Performed By: #### P REG #### [facility] [address] [address] [address] Celina Venegas Globulin (S) [Mass/Vol] 4.2 g/dL Normal [facility] Comment on above: Performed By: #### P REG #### [facility] [address] [place] [address] Dr. Celina Venegas Glucose [Mass/Vol] 110 mg/dL Critically high 74-106 [facility] Comment on above: Performed By: #### P REG #### [facility] [address] [place] [address] Dr. Celina Venegas Potassium [Moles/Vol] 2.9 mmol/L Critically low 3.5-5.1 [facility] Comment on above: Performed By: #### P REG #### [facility] [address] [place] [address] Dr. Celina Venegas Protein [Mass/Vol] 7.4 g/dL Normal 6.4-8.2 [facility] Comment on above: Performed By: #### P REG #### [facility] [address] [place] [address] Dr. Celina Venegas Sodium [Moles/Vol] 137 mmol/L Normal 136-145 [facility] Comment on above: Performed By: #### P REG #### [facility] [address] [place] [address] Dr. Celina Venegas Urea nitrogen [Mass/Vol] 20.0 mg/dL Critically high 7.0-18.0 [facility] Comment on above: Performed By: #### P REG #### [facility] [address] [place] [address] Dr. Celina Venegas Urea nitrogen/Creatinine [Mass ratio] 28.6 mg/mg Normal [facility] Comment on above: Performed By: #### P REG #### [facility] [address] [place] [address] Dr. Celina Venegas URINE MICROSCOPIC ONLYon BACTERIA NONE SEEN Normal NONE SEEN [facility] Comment on above: Performed By: #### M G, BNP, CMP #### [facility] [address] [place] [address] Dr. Celina Venegas Bacteria identified Cx Nom (U) NOT INDICATED Normal [facility] Comment on above: Performed By: #### M G, BNP, CMP #### [facility] [address] [place] [address] Dr. Celina Venegas CAST NONE SEEN Normal NONE SEEN [facility] Comment on above: Performed By: #### M G, BNP, CMP #### [facility] [address] [place] [address] Dr. Celina Venegas Crystals LM Nom (Urine sed) NONE SEEN Normal NONE SEEN [facility] Comment on above: Performed By: #### M G, BNP, CMP #### [facility] [address] [place] [address] Dr. Celina Venegas Epithelial cells LM Ql (Urine sed) RARE Normal NONE SEEN /RARE [facility] Comment on above: Performed By: #### M G, BNP, CMP #### [facility] [address] [place] [address] Dr. Celina Venegas MUCOUS NONE SEEN Normal NONE SEEN [facility] Comment on above: Performed By: #### M G, BNP, CMP #### [facility] [address] [place] [address] Dr. Celina Venegas RBC NONE SEEN Abnormal 0-2 [facility] Comment on above: Performed By: #### M G, BNP, CMP #### [facility] [address] [place] [address] Dr. Celina Venegas WBC 0-2 Abnormal NONE SEEN [facility] Comment on above: Performed By: #### M G, BNP, CMP #### [facility] [address] [place] [address] Dr. Celina Venegas Vital Signs Date Time Vital Sign Value Performing Clinician Liesi rafi 08-23-2023 12:30-0400 Diastolic blood pressure 78 mm[Hg] MD Sylwia Clement Work Phone: [facility] 08-23-2023 12:30-0400 Heart rate 64 /min MD Sylwia Clement Work Phone: [facility] 08-23-2023 12:30-0400 Respiratory rate 20 /min MD Sylwia Clement Work Phone: [facility] 08-23-2023 12:30-0400 SaO2% (BldA) [Mass fraction] 96 % MD Sylwia Clement Work Phone: [facility] 08-23-2023 12:30-0400 Systolic blood pressure 156 mm[Hg] MD Sylwia Clement Work Phone: [facility] 08-23-2023 11:30-0400 Body temperature 97.4 [degF] MD Sylwia Clement Work Phone: [facility] 08-23-2023 10:55-0400 Inhaled oxygen flow rate 8 L/min MD Sylwia Clement Work Phone: [facility] 08-23-2023 09:14-0400 Body height 152.4 cm MD Sylwia Clement Work Phone: [facility] 08-23-2023 09:14-0400 Body mass index (BMI) [Ratio] 22.4 kg/m2 MD Sylwia Clement Work Phone: [facility] 08-23-2023 09:14-0400 Body weight 52 kg MD Sylwia Clement Work Phone: [facility] Encounters Encounter Date Encounter Type Care Provider Facility Start: 09-13-2023 ambulatory [facility] Start: 08-30-2023 End: 08-30-2023 ambulatory RAUL W MURCEK Not Available Start: 08-29-2023 End: 08-29-2023 ambulatory [facility] Start: 08-23-2023 End: 08-23-2023 ambulatory RAUL W MURCEK Not Available Start: 08-23-2023 End: 08-23-2023 ambulatory Raul Murcek Facility:[facility] Start: 08-23-2023 End: 08-23-2023 Admission to same day surgery center MD Sylwia Clement Work Phone: [facility] [place] Start: 08-23-2023 End: 08-23-2023 ambulatory MD Sylwia Clement Work Phone: [facility] [place] [facility] Work Phone: Start: 2023 End: 2023 ambulatory Raul Lopez Facility:[facility] Start: 2023 Encounter for preprocedural laboratory examination Raul oLpez [facility] Start: 2023 End: 2023 ambulatory MD Sylwia Clement Work Phone: [facility] [place] [facility] Work Phone: Start: 2023 End: 2023 Patient encounter procedure MD Sylwia Clement Work Phone: [facility] [place] [facility] Work Phone: Start: 08-14-2023 End: 08-14-2023 ambulatory RAUL LOPEZ Not Available Start: 06-13-2023 End: 06-13-2023 ambulatory [facility] Start: 05-25-2023 [facility] Start: 05-24-2023 End: 05-26-2023 Evaluation and management of inpatient [facility] Start: 04-18-2023 End: 04-18-2023 ambulatory [facility] Start: 03-07-2023 End: 03-07-2023 ambulatory [facility] Start: 01-09-2023 End: 01-09-2023 ambulatory [facility] Start: 11-25-2022 End: 11-28-2022 ambulatory [facility] Start: 10-28-2022 End: 10-28-2022 ambulatory AUGUSTIN CLAROS [facility] Start: 10-07-2022 End: 10-09-2022 Evaluation and management of inpatient YAYO ROBBIE . Facility:[facility] Start: 09-23-2022 End: 09-23-2022 ambulatory BLOSSOM ROBBIE II Facility:[facility] Start: 09-22-2022 End: 09-23-2022 ambulatory DIVYA ACOSTA Facility:[facility] Start: 09-05-2022 End: 09-06-2022 ambulatory Hector QUILES Facility:CD:[id number] Start: 09-05-2022 End: 09-08-2022 Evaluation and management of inpatient YAYO AVALOS . Facility:[facility] Start: 08-20-2022 End: 08-20-2022 ambulatory RAQUEL MIN . Facility:[facility] Start: 02-21-[address] DOCTOR QUICK Facility :[facility] Procedures Date Procedure Procedure Detail Performing Clinician Start: 08-23-2023 Lobectomy of thyroid gland MD Sylwia Clement Work Phone: Start: 10-07-2022 Insertion of Endotra cheal Airway into Trachea, Via Natural or Artificial Opening DR DOCTOR QUICK Plan of Treatment Date Care Activity Detail Author Start: 08-23-2023 [facility] Start: 08-23-2023 [facility] Patient referral [facility] Work Phone: Payers Date Payer Category Payer Self-pay [id number] 2019 Medicaid [id number] 1970 Unknown [id number] 2.16.8 [id number] 1970 Unknown [id number] 2.16.8 [id number] 1969 Unknown [id number] 2.16.84 [id number] 1969 Unknown [id number] 2.16.84 [id number] 1969 Unknown [id number] 2.16.84 [id number] 1969 Unknown [id number] 2.16.84 [id number] 1969 Unknown [id number] 2.16.84 [id number] 1969 Unknown [id number] 2.16.84 [id number] 1969 Unknown [id number] 2.16.84 [id number] 1969 Unknown [id number] 2.16.84 [id number] 1969 Unknown [id number] 2.16.84 [id number] 1959 Self-pay [id number] 1959 Unknown [id number] Unknown [id number] 2.16.8 [id number] Unknown [id number] 2.16.8 [id number] Social History Date Type Detail Facility Start: 2023 End: 08-23-2023 Tobacco smoking status NHIS Never smoked tobacco (finding) [facility] Start: 1970 Sex Assigned At Female [facility] Goals Date Patient Goal Desired Activity /State Clinical Notes 09-05-2022 to 09-13-2023 Note Date & Type Note Facility 09-13-2023 Note [facility] Note Date of Telehealth Visit: 09/13/23 The patient was notified that using 3rd democrat telecommunication application (e.g., [employer]) is not HIPPA compliant and may carry some privacy risks. Yes The visit was conducted [id number] with the use of audio and video technology Solo. between patient and provider for a virtual visit. Verbal consent to provide and bill this service was obtained on 09/13/23 . No signature was obtained due to the COVID-19 pandemic. Patient Location: Patient Home I spent 12 minutes of total time on the day of the visit. This time was spent preparing for the visit, obtaining and reviewing any outside history/data, taking a history, performing an exam/evaluation, counseling and educating patient/family about the diagnosis and plan, performing medical decision making, referring to and communicating with other health care referrals, independently interpreting results and documenting in the EMR, and coordinating care. Please see the additional documentation in this note for specific details. Reason for visit: HFU, afib rvr, sinus pause 3 seconds 09/13/23 Pt has symptomatic pauses. She is wanting to proceed with PPM. 08/29/23 Patient here for 2 mo follow up. She is 6 days s/p thyroidectomy. Says she has not had recurrent dizziness since surgery. Palpitations are occurring less frequent. Chest pain has resolved but says she's always SOB. following surgery she had 1 or 2 episodes in which she experienced dizziness but she states markedly different from before, 30-day event monitor n 06/13/2023 to 07/13/2023 reveals multiple episodes of pauses with the longest 1 of 6.19 seconds seen on 07/13/2023 at 2:39 AM there are also other episodes of pauses during daytime. 06/13/23: She is here for hospital follow-up from [facility] she was admitted for chest pain and [...] function first as this can contribute to SVT/VT. she continues to feel palpitations and presyncope [...] Ct to have palpitations. Prior HPI: Shahida Mejia is a 53 y.o. year old with past medical history [...] syncope. 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 year old female patient being who was seen in consultation at the [facility] for NSTEMI, acute on chronic diastolic [...] Abnormal ECG Arrhythmia CHF (congestive heart failure) ([facility]) COPD (chronic obstructive pulmonary disease) ([facility]) Hypertension NSVT (nonsustained ventricular tachycardia) ([facility]) PSH: Past Surgical History: Procedure Laterality Date APPENDECTOMY THYROIDECTOMY SH: Social Determinants of Health Tobacco Use: Low Risk (09/13/2023) Patient History Smoking Tobacco Use: Never Smokeless Tobacc (more content not included)... [facility] 08-29-2023 Note [facility] Consult Note Reason for visit: HFU, afib rvr, sinus pause 3 seconds 08/29/23 Patient here for 2 mo follow up. She is 6 days s/p thyroidectomy. Says she has not had recurrent dizziness since surgery. Palpitations are occurring less frequent. Chest pain has resolved but says she's always SOB. following surgery she had 1 or 2 episodes in which she experienced dizziness but she states markedly different from before, 30-day event monitor n 06/13/2023 to 07/13/2023 reveals multiple episodes of pauses with the longest 1 of 6.19 seconds seen on 07/13/2023 at 2:39 AM there are also other episodes of pauses during daytime. 06/13/23: She is here for hospital follow-up from [facility] she was admitted for chest pain and [...] function first as this can contribute to SVT/VT. she continues to feel palpitations and presyncope [...] Ct to have palpitations. Prior HPI: Shahida Mejia is a 53 y.o. year old with past medical history [...] syncope. 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 year old female patient being who was seen in consultation at the [facility] for NSTEMI, acute on chronic diastolic [...] Abnormal ECG Arrhythmia CHF (congestive heart failure) ([facility]) COPD (chronic obstructive pulmonary disease) ([facility]) Hypertension NSVT (nonsustained ventricular tachycardia) ([facility]) PSH: Past Surgical History: Procedure Laterality Date APPENDECTOMY THYROIDECTOMY SH: Social Determinants of Health Tobacco Use: Low Risk (08/29/2023) Patient History Smoking Tobacco Use: Never Smokeless Tobacco Use: Never Passive Exposure: Past Alcohol Use: Not on file Financial Resource Strain: Low Risk (05/24/2023) Overall Financial Resource Strain (CARDIA) Difficulty of Paying Living Expenses: Not hard at all Food Insecurity: No Food Insecurity (05/24/2023) Hunger Vital Sign Worried About Running Out of Food in the Last Year: Never true Ran Out of Food in the Last Year: Not on file Transportation Needs: No Transportation Needs (05/24/2023) Transportation Lack of Transportation (Medical): No Lack of Transportation (Non-Medical): Not on file Physical Activity: Not on file Stress: Not on file Social Connections: Not on file Intimate Partner Violence: Not At Risk (05/24/2023) [facility] Fear of Current or Ex-Partner: No Emotionally Abused: Not on file Physically Abused: Not on file Sexually Abused: Not on file Physically or Sexually Abused: Not on file Depression: Not on file Housing Stability: Low Risk (05/24/2023) Housing Stability Vital Sign Unable to Pay for Housing in the Last Year: Not on file Number of Places Lived in the Last Year: Not on f (more content not included)... [facility] 06-13-2023 Note [place] [facility] Consult Note Reason for visit: HFU, afib rvr, sinus pause 3 seconds 06/13/23: She is here for hospital follow-up from [facility] she was admitted for chest pain and [...] Ct to have palpitations. Prior HPI: Shahida Mejia is a 52 y.o. year old with [...] syncope. 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 year old female patient being who was seen in consultation at the [facility] for NSTEMI, acute on chronic diastolic [...] Abnormal ECG Arrhythmia CHF (congestive heart failure) ([facility]) COPD (chronic obstructive pulmonary disease) ([facility]) Hypertension NSVT (nonsustained ventricular tachycardia) ([facility]) PSH: Past Surgical History: Procedure Laterality Date APPENDECTOMY SH: Social Determinants of Health Tobacco Use: Low Risk (03/07/2023) Patient History Smoking Tobacco Use: Never Smokeless Tobacco Use: Never Passive Exposure: Past Alcohol Use: Not on file Financial Resource Strain: Low Risk (05/24/2023) Overall Financial Resource Strain (CARDI) Difficulty of Paying Living Expenses: Not hard [...] Year: No Utilities: Not At Risk (05/24/2023) [facility] Utilities Threatened with loss of utilities: No [...] tablet Take 1 (more content not included)... [facility] 06-13-2023 Note Patient here for [facility]. Heart cath and EP procedures were [...] All other systems reviewed and are negative. [facility] 05-26-2023 Note Attestation signed by Perla Esquivel MD at 05/26/2023 12:04 PM I personally saw and examined the patient on the same date of service as resident/fellow Dr Goins. I discussed the findings and therapeutic plan with the resident/fellow Dr Goins. I agree with the documentation, except for any edits/updates below. Teaching Physician's Revisions: Before considering any invasive investigations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
[2023-09-29 08:28] LABS: Basophils Absolute Auto 0.1 10^3/uL (0.0-0.1); Basophils Percent Auto 0.8 % (0.2-2.0); Eosinophils Absolute Auto 0.1 10^3/uL (0.0-0.7); Eosinophils Percent Auto 1.1 % (0.9-7.0); Hematocrit 33.1 % (36.0-48.0); Immature Granulocytes Abs Auto 0.02 10^3/uL (0.00-0.03); Immature Granulocytes Pct Auto 0.3 % (0.0-0.5); Lymphocytes Absolute Auto 1.9 10^3/uL (1.2-3.8); Lymphocytes Percent Auto 29.9 % (20.5-60.0); Mean Corpuscular HGB Conc 30.2 g/dL (29.9-35.2); Mean Corpuscular Volume 89.2 fL (81.0-99.0); Mean Platelet Volume 10.8 fL (9.5-13.5); Monocytes Absolute Auto 0.4 10^3/uL (0.3-0.8); Monocytes Percent Auto 6.4 % (1.7-12.0); Neutrophils Percent Auto 61.5 % (43.0-75.0); Platelet Count 259 10^3/uL (150-450); Red Blood Count 3.71 10^6/uL (4.20-5.40); Red Cell Distribution Width 13.7 % (11.0-15.0); White Blood Count 6.5 10^3/uL (4.0-11.0)
[2023-09-29 09:40] LABS: Anion Gap 9.6; BUN Creatinine Ratio 13.7; Calcium 8.7 mg/dL (8.5-10.1); Carbon Dioxide 30.6 mmol/L (21.0-32.0); Chloride 106 mmol/L (98-107); Estimated GFR (African America >60 (>=60); Estimated GFR (Non-African Ame >60 (>=60); Glucose 83 mg/dL (74-106); Potassium 4.2 mmol/L (3.5-5.1); Sodium 142 mmol/L (136-145)
== END 2023-09-29 07:47 | disposition home or self-care (01) ==
LOC: LAB 07:48
PROVIDERS: PCP Family Medicine; Visit Provider Internal Medicine Cardiovascular Disease
DX: I47.29 Other ventricular tachycardia (principal)
CPT/HCPCS: 36415; 80048; 85025

== ENCOUNTER 2023-09-29 07:50 | Outpatient (OUT) | payer OTHER, SELFPAY ==
--- OUTSIDE RECORDS SUMMARY | 2023-09-29 07:57 | XMS_ITS | CCD ---
Author Organization [facility] Care Team Providers Care Sales Incentive Analyst Name Role Phone Hector QUILES Attending Unavailable NILL, Hector Hair Attending Unavailable Musa Caro Referring Unavailable MISC, DR TOMPKINS Primary Care Unavailable MISC, DR TOMPKINS Attending Unavailable MISC, DR TOMPKINS Admitting Unavailable ROBBIE ., YAYO Admitting Unavailable ZIEBER, DR THADDEUS Hair Consulting Unavailable [facility] Primary Care Unavailable ROBBIE ., YAYO Attending [...] Primary Care Unavailable DIANA URIOSTEGUI Consulting Unavailable RBOBIE ., YAYO Attending Unavailable SAMSA ., LEE [...] Care Provider DO Raul Lopez Attending Provider [phone] Raul Lopez Attending Unavailable Sylwia Clement Primary [...] sources) dapagliflozin; Translations: [DAPAGLIFLOZIN] Drug Allergy 06-13-2023 [facility] Repository Medications Current Medications Medication Drug [...] 09-15-2022 Episodic Other aftercare (1 source) Other terminal superintendent (current) drug therapy; Translations: [OTH SODIUM CHLORITE OPERATOR CURRENT DRUG THERAPY] Onset: 10-12-2022 Episodic Other [...] Interpretation Reference Range Facility Telemedicineon 09-13-2023 Telemedicine [id number] Mejia,Shahida M 1970 F Date Provider Department Center 09/13/2023 FABIAN DALEY [facility] Family History Problem Relation Age of Onset Other Mother Coronary artery disease Father Other Father Family Status - Relation Status Age at Mother Father Level of Service:94214 MO PHYS/QHP TELEPHONE EVALUATION 5-10 MIN Reason for Visit and Comments: Palpitations [467357] - Discuss icd Normal [facility] Office Visiton 08-29-2023 Follow-up visit [id number] MejiaShahida M 1970 F Date Provider Department Center 08/29/2023 FABIAN DALEY [facility] Family History Problem Relation Age of Onset Other Mother Coronary artery disease Father Other Father Family Status - Relation Status Age at Mother Father Level of Service:23523 MO OFFICE/OUTPATIENT ESTABLISHED LOW MDM 20 MIN Normal [facility] Amphetamine Screen Ql (U)Ord ered By: Arya Metz on 08-23-2023 Amphetamines Ql (U) Negative Negative [facility] Barbiturates [Presence] in U rine by Screen methodOrdered By: Arya Metz on 08-23-2023 Barbiturates Screen Ql (U) Negative Negative [facility] Benzodiazepines Screen Ql (U )Ordered By: Arya Metz on 08-23-2023 Benzodiazepines Ql (U) Negative Negative [facility] Benzoylecgonine [Presence] i n Urine by Screen methodOrdered By: Arya Metz on 08-23-2023 Benzoylecgonine Screen Ql (U) Negative Negative [facility] Calciumon 08-23-2023 Calcium [Mass/Vol] 8.9 mg/dL Normal 8.6-10.3 The Counts include 234 beds at the [facility] Comment on above: Result Comment: PERF ORMED BY: [place] [address] PATHOLOGIST WATER/WASTEWATER PROJECT MANAGER RONDA LEYVA M.D. Performed By: #### C A, PTH #### [place] [address] [place] Calcium [Mass/volume] in Ser um or PlasmaOrdered By: Raul Lopez on 08-23-2023 Calcium [Mass/Vol] 8.9 mg/dL 8.6-10.3 [facility] Cannabinoids [Presence] in U rine by Screen methodOrdered By: Arya Metz on 08-23-2023 Cannabinoids Screen Ql (U) Positive Negative [facility] Comment on above: These are unconfirme d results and should not be used for legal purposes. Drug Cut-Off Concentration: AMPH 1000 ng/mL GRACIELA 200 ng/mL ED 200 ng/mL COCM 300 ng/mL OP 300 ng/mL PCP 25 ng/mL THC 20 ng/mL Drug Screen,Urineon 08-23-19 24 Amphetamine Screen,Urine Negative Normal Negative [facility] Comment on above: Performed By: #### U RDS #### [address] Barbiturate Screen,Urine Negative Normal Negative [facility] Comment on above: Performed By: #### U RDS #### [address] Benzodiazepines Screen,Urine Negative Normal Negative [facility] Comment on above: Performed By: #### U RDS #### [address] Cannabinoid Screen,Urine Positive High Negative [facility] Comment on above: Result Comment: Thes e are unconfirmed results and should not be used for legal purposes. Drug Cut-Off Concentration: AMPH 1000 ng/mL GRACIELA 200 ng/mL ED 200 ng/mL COCM 300 ng/mL OP 300 ng/mL PCP 25 ng/mL THC 20 ng/mL PERFORMED BY: [facility] [address] [place] [address] PATHOLOGIST WATER/WASTEWATER PROJECT MANAGER RONDA LEYVA M.D. Performed By: #### U RDS #### [facility] [address] Cocaine Screen,Urine Negative Normal Negative [facility] Comment on above: Performed By: #### U RDS #### [facility] [address] Opiate Screen,Urine Negative Normal Negative [facility] Comment on above: Performed By: #### U RDS #### [facility] [address] Phencyclidine Screen,Urine Negative Normal Negative [facility] Comment on above: Performed By: #### U RDS #### [place] [address] [place] Hank 08-23-2023 L Specimen: Received: 08/23/23 Status: OWEN Barrera Num: [id number] Spec Type: Surgical Subm Dr: Raul Lopez DO Tissues: A THYROID - Lobe (RT LOBE/ISTHMUS) B THYROID - Lobe (LT LOBE) Procedures: HE/10, Gross/Micro L5/2 Age/ Patient Sex Location Account Attending Physician Shahida Mejia 53/F CT [id number] Raul Lopez DO SPEC NUM: RECD: 08/23/23 STATUS: OWEN BARRERA NUM: [id number] PATRICK: 08/23/[address]: Raul Lopez DO ENTERED: 08/23/[address] [facility] [address]: SPEC TYPE: Surgical DEPT: S ORDERED: [...] to inferior to reveal no mass lesions. Filter Press Supervisor sections are submitted in A1?A5. B.) In [...] to inferior to reveal no mass lesions. Filter Press Supervisor sections are submitted in B1?B5. RG Clinical history: Graves' disease -------- Specimen: [id number] Received: 08/23/23 Status: OWEN Barrera Num: [id number] Spec Type: Surgical Subm Dr: Raul Lopez DO Tissues: A THYROID - Lobe (RT LOBE/ISTHMUS) B THYROID - Lobe (LT LOBE) Procedures: Cresencio, Gross/Micro L5/2 -------- Patient: Shahida Mejia [id number] (Continued) -------- Specimen: Received: 08/23/23 (Continued) Signed (signature on file) Godfrey Krueger MD 08/29/23 1243 -------- Specimen: Received: 08/23/23 Status: LUCYChristina Barrera Num: [id number] Spec Type: Surgical Subm Dr: Raul Lopez DO Tissues: A THYROID - Lobe (RT LOBE/ISTHMUS) B THYROID - Lobe (LT LOBE) Procedures: , Erica/Richelle L5/2 -------- Patient: Shahida Mejia [id number] (Continued) -------- Specimen: Received: 08/23/23 (Continued) CPT Codes 68608d4 -------- -------- Specimen: [id number] Received: 08/23/23-1111 Status: OWEN Sami Num: [id number] Spec Type: Surgical Subm Dr: Raul Lopez DO Tissues: A THYROID - Lobe (RT LOBE/ISTHMUS) B THYROID - Lobe (LT LOBE) Procedures: Erica/Richelle L5/2 -------- Patient: Shahida Mejia [id number] (Continued) -------- Signed (signature on file) Godfrey Krueger MD 04/16/24 1243 Normal [facility] Opiates [Presence] in Urine by Screen methodOrdered By: Arya Metz on 08-23-2023 Opiates Screen Ql (U) Negative Negative [facility] Parathyrin.intact [Mass/volu me] in Serum or PlasmaOrdered By: Raul Lopez on 08-23-2023 Parathyrin.intact [Mass/Vol] 20.0 pg/mL [facility] Parathyroid Hormone Intacton 08-23-2023 Parathyroid Hormone Intact 20.0 pg/mL Normal [facility] Comment on above: Order Comment: Comme nt Call to Dr. Lopez Result Comment: PERF ORMED BY: [place] [address] PATHOLOGIST WATER/WASTEWATER PROJECT MANAGER RONDA LEYVA M.D. Performed By: #### C A, PTH #### [facility] [address] [place] [address] [facility] Phencyclidine Screen Ql (U)O rdered By: Arya Metz on 08-23-2023 Phencyclidine Ql (U) Negative Negative [facility] Letter (Out)on 08-22-2023 Letter (Out) [id number] Shahida Mejia 1970 F Date Provider Department Center 08/22/2023 FABIAN DALEY [facility] C[facility] Adame Count Family History Problem Relation Age of Onset Other Mother Coronary artery disease Father Other Father Family Status - Relation Status Age at Mother Father Normal [facility] Basic Metabolic Panelon 04-0 Anion gap [Moles/Vol] 19.0 mmol/L High 6.0-15.0 [facility] Comment on above: Performed By: #### B MP #### [facility] [address] [place] [address] [place] Calcium [Mass/Vol] 9.7 mg/dL Normal 8.6-10.3 The Counts include 234 beds at the [facility] Comment on above: Result Comment: PERF ORMED BY: [facility] [address] [place] [address] PATHOLOGIST WATER/WASTEWATER PROJECT MANAGER RONDA LEYVA M.D. Performed By: #### B MP #### [place] [address] [place] Chloride [Moles/Vol] 101 mmol/L Normal 98-107 [facility] Comment on above: Performed By: #### B MP #### [address] CO2 [Moles/Vol] 28.5 mmol/L Normal 21.0-31.0 [facility] Comment on above: Performed By: #### B MP #### [address] Creatinine [Mass/Vol] 1.20 mg/dL Normal 0.60-1.20 [facility] Comment on above: Performed By: #### B MP #### [place] [address] [place] GFR/1.73 sq M.predicted MDRD (S/P/Bld) [Vol rate/Area] 54.127 mL/min/{1.73_m2} Normal [facility] Comment on above: Performed By: #### B MP #### [address] Glucose [Mass/Vol] 48 mg/dL Off scale low 70-100 [facility] Comment on above: Result Comment: Crit ical Result Called to and read back by: SEBASTIÁN FERGUSON at: 2023 13:13:02 by:[id number] Random Glucose Reference Range is dependent on time and content of last meal. Glucose of more than 200 mg/dL in a nonstressed, ambulatory subject supports the diagnosis of Diabetes Mellitus. ADA recommended reference range Performed By: #### B MP #### [place] [address] [place] Potassium [Moles/Vol] 3.5 mmol/L Normal 3.5-5.1 [facility] Comment on above: Performed By: #### B MP #### [place] [address] [place] Sodium [Moles/Vol] 145 mmol/L Normal 136-145 The Counts include 234 beds at the [facility] Comment on above: Performed By: #### B MP #### [facility] [address] Urea nitrogen [Mass/Vol] 17 mg/dL Normal 7-25 [facility] Comment on above: Performed By: #### B MP #### [address] Calcium [Mass/volume] in Ser um or PlasmaOrdered By: Raul Lopez on 2023 Calcium [Mass/Vol] 9.7 mg/dL 8.6-10.3 [facility] Carbon dioxide, total [Moles /volume] in Serum or PlasmaOrdered By: Raul Lopez on 2023 CO2 [Moles/Vol] 28.5 mmol/L 21.0-31.0 [facility] Chloride [Moles/volume] in S mona or PlasmaOrdered By: Raul Lopez on 2023 Chloride [Moles/Vol] 101 mmol/L 98-[address] [facility] Creatinine [Mass/volume] in Serum or PlasmaOrdered By: Raul Lopez on 2023 Creatinine [Mass/Vol] 1.20 mg/dL 0.60-1.20 [facility] ECG 12 lead ECGon 2023 ECG 12 lead ECG [facility] Main [place] [address] [place] [address] Electrocardiograph Report Signed Patient: Shahida Mejia MR#: [id number] 6 : 1970 Acct:[id number] Age/Sex: 52 / F ADM Date: 08/16/23 Loc: PS [facility]: Raul Lopez DO Ordering Provider: [...] previous ECGs available Confirmed by JUANITA MOTA [facility], DANIEL ([id number]) on 08/17/2023 2:54:25 PM Referred By: JESSICA Electronically Signed By:DANIEL GRANT MD [facility] Transcribed By: STEFANIE Signed By Daniel Grant MD, [facility] 08/17/23 1454 Normal [facility] Glucose [Mass/volume] in Ser um or PlasmaOrdered By: Raul Lopez on 2023 Glucose [Mass/Vol] 48 mg/dL 70-100 [facility] Comment on above: Critical Result Call ed to and read back by: SEBASTIÁN FERGUSON at: 2023 13:13:02 by:[id number] recommended reference rangeRandom Glucose Reference Range is dependent on time and content of last meal. Glucose of more than 200 mg/dL in a nonstressed, ambulatory subject supports the diagnosis of Diabetes Mellitus. No Panel InformationOrdered By: Raul Lopez on 2023 Estimated GFR (CKD-EPI) 54.127 mL/Min [facility] Creatinine Clearance (Chem N/A [facility] Potassium [Moles/volume] in Serum or PlasmaOrdered By: Raul Lopez on 2023 Potassium [Moles/Vol] 3.5 mmol/L 3.5-5.1 [facility] Serum or plasma anion gap de terminationOrdered By: Raul Lopez on 2023 Anion gap [Moles/Vol] 19.0 mmol/L 6.0-15.0 [facility] Sodium [Moles/volume] in Ser um or PlasmaOrdered By: Raul Lopez on 2023 Sodium [Moles/Vol] 145 mmol/L 136-145 [facility] Urea nitrogen [Mass/volume] in Serum or PlasmaOrdered By: Raul Lopez on 2023 Urea nitrogen [Mass/Vol] 17 mg/dL 7-25 [facility] 36on 07-13-2023 36 Received fax notification of 6.19 second pause on her event monitor - occurring at 2:39am on 07/13/2023. Report emailed to Cholo Cruz and Dr. Morfin. Report scanned into patient's media consultant outside sales. [facility] 07-11-2023 36 I spoke her endocrinology office yesterday and they told me patient could have thyroid radiation at [facility]. I advised patient yesterday to call [facility] and get scheduled. She calls me back today and says [facility] won't do it now. I confirmed this just now with endocrinology office. She told me Shahida has apt next Monday, 07/20 to discuss radiation in [place] or thyroidectomy. FYI [facility] 3607-05-2023 36 Thank you! [facility] 36 I looked on patient' s daily logs from her event monitor. It has shown no pauses or events since the 5.38 second pause on 06/26/23. I called Shahida and she said she's felt better this past week. She said her alum operator is referring her to another specialist who manages the surgery and the pill . She is still waiting to hear from the other doctor's office, and has made endocrine aware that she's still waiting. I left a message for alum operator's office to return my call to hopefully get this referral process going. [facility] 07-04-2023 36 Can we please follow up with the alum operator to get input on where she is at regarding thyroid levels / management and what their plan of action is , needs to be as aggressively managed as able d/t these significant pauses , they have slowly increased from mostly being 3 seconds to now 4-5 seconds each time [facility] 36on 06-29-2023 36 Regarding 5 second pause on event monitor, which is scanned into media consultant outside sales. Cholo Cruz, JOSR Morfin MD; Gail Burnett MA I believe patient has had meds adjusted 5 second pause , at what point do we say PPM? Just looking for some guidance [facility] Telephoneon 06-29-2023 Telephone [id number] RobertoShahida Ny 1970 F Date Provider Department Center 06/29/2023 [facility] Family History Problem Relation Age of Onset Other Mother Coronary artery disease Father Other Father Family Status - Relation Status Age at Mother Father [facility] 36on 06-15-2023 36 The office received serious [...] from us yet. Patient verbalized understanding. Normal [facility] Office Visiton 06-13-2023 Follow-up visit [id number] Shahida Mejia 1970 F Date Provider Department Center 06/13/2023 [facility]CHOLO CRUZ [facility] Family History Problem Relation Age of Onset Other Mother Coronary artery disease Father Other Father Family Status - Relation Status Age at Mother Father Level of Service:23739 MO OFFICE/OUTPATIENT ESTABLISHED MOD MDM 30 MIN Normal [facility] 30on 05-26-2023 30 The patient is Moderately Stable - Low risk of patient condition declining or worsening The patient's goals for the shift include comfort The clinical goals for the shift include vss Over the shift, the patient did not make progress toward the following goals. Barriers to progression include . Recommendations to address these barriers include . Normal [facility] ANTI-XA (HEPARIN LEVEL)on HEPARIN UNFRACTIONATED (U/ML) IN PPP BY CHROMOGENIC METHOD 0.56 IU/mL Normal 0.3-0.7 [facility] Comment on above: Order Comment: Check anti-Xa level every 6 hours while on heparin infusion, or per protocol. Result Comment: Warden roxaban and Apixaban will interfere with the anti Xa assay used to monitor UFH and LMWH. Performed By: #### L [id number] ####[facility] (BEAKER)[address] [place] [address] HEPARIN UNFRACTIONATED (U/ML) IN PPP BY CHROMOGENIC METHOD 0.71 IU/mL High 0.3-0.7 [facility] Comment on above: Result Comment: Celeste roxaban and Apixaban will interfere with the anti Xa assay used to monitor UFH and LMWH. Performed By: #### L [id number] ####[facility] ([facility])[address] [place] [address] APTTon 05-26-2023 ACTIVATED PARTIAL THROMBOPLASTIN TIME IN PPP BY COAGULATION ASSAY 85.5 Seconds High 25.0-35.0 [facility] Comment on above: Result Comment: Clin ical significance of the APTT is questionable in the presence of heparin. Performed By: #### L AB325 #### [facility] ([facility]) [address] [place] [address] BASIC METABOLIC PANELon 05-15 Anion gap [Moles/Vol] 12 mmol/L Normal 7-[address] [facility] Comment on above: Performed By: #### L AB15 ####[facility] ([facility])[address] [place] [address] Calcium [Mass/Vol] 9.8 mg/dL Normal 8.6-10.3 [facility] Comment on above: Performed By: #### L AB15 ####[facility] ([facility])[address] [place] [address] Chloride [Moles/Vol] 108 mmol/L High 98-107 [facility] Comment on above: Performed By: #### L AB15 ####[facility] ([facility] [place] [address] CO2 [Moles/Vol] 23 mmol/L Normal 21-31 [facility] Comment on above: Performed By: #### L AB15 ####[facility] ([facility] [place] [address] Creatinine [Mass/Vol] 0.85 mg/dL Normal 0.60-1.[address] [facility] Comment on above: Performed By: #### L AB15 ####[facility] ([facility] [place] [address] GLOMERULAR FILTRATION RATE ML/MIN/1.73 SQ M.PREDICTED 81.9 mL/min/1.73m*2 Normal >60.0 [facility] Comment on above: Result Comment: [facility]???s estimated glomerular filtration rate (eGFR) will [...] of individuals. Performed By: #### L AB15 ####[facility] ([facility])[address] [place] [address] Glucose [Mass/Vol] 85 mg/dL Normal 70-100 [facility] Comment on above: Performed By: #### L AB15 ####[facility] ([facility])[address] [place] [address] Potassium [Moles/Vol] 4.1 mmol/L Normal 3.5-5.[address] [facility] Comment on above: Performed By: #### L AB15 ####[facility] ([facility])[address] [place] [address] Sodium [Moles/Vol] 139 mmol/L Normal 136-145 [facility] Comment on above: Performed By: #### L AB15 ####[facility] ([facility])[address] [place] [address] Urea nitrogen [Mass/Vol] 18 mg/dL Normal 7-25 [facility] Comment on above: Performed By: #### L AB15 ####[facility] ([facility])[address] [place] [address] UREA NITROGEN/CREATININE (MASS RATIO) IN SER/PLAS 21.2 Normal [facility] Comment on above: Performed By: #### L AB15 ####[facility] ([place] [address] CONSULTon 05-26-2023 CONSULT - Attestation signed by [...] be an additional personal documentation from me. [place] Electrophysiology Consult Note Reason for Consult: Sinus [...] Abnormal ECG, Arrhythmia, CHF (congestive heart failure) ([facility]), COPD (chronic obstructive pulmonary disease) ([facility]), Hypertension, and NSVT (nonsustained ventricular tachycardia) ([facility]). Surgical History She has [...] Value Ventricular Rate 62 Atrial Rate 62 MO Interval 174 QRS DURATION 90 QT Interval 440 QTC CALCULATION(BAZETT) 446 P Markesan 36 R-Markesan 53 T Wave Markesan 69 Impression Normal sinus rhythm Normal ECG No previous ECGs available Confirmed by Fabian Morfin ([id number]) on 05/25/2023 8:31:53 PM Lab Results Component Value Date TROPONINI 0. (more content not included)... Normal [facility] DSon 05-26-2023 DS - Attestation signed by [...] an 52 y.o. female who came from [facility] with multiple complaints. Patient was seen [...] scheduled for November 06, 2023 with the [facility] cardiology service as they have been managing her atrial fibrillation/flutter, CAD and heart failure with preserved ejection fraction. Cardiac history is also notable for sinus pauses and nonsustained V. tach. Patient does have history of hyperthyroidism and takes methimazole, with recent change in February or March from her alum operator. Patient's heart rate stabilized after electrolyte abnormalities have resolved, continues to have some pauses but only as long as 3 seconds. She was evaluated by cardiology, no current need for pacemaker placement or heart cath at this time. She was discharged and encouraged to follow-up closely with her alum operator on further adjustment of her medication. Dear [...] MAGNESIUM mg/dL (more content not included)... Normal [facility] MAGNESIUMon 05-26-2023 Magnesium [Mass/Vol] 1.6 mg/dL Low 1.9-2.7 [facility] Comment on above: Performed By: #### L AB325 #### [facility] ([facility]AKER) [address] [place] [address] 30on 05-25-2023 30 The patient is Moderately Stable - Low risk of patient condition declining or worsening The patient's goals for the shift include comfort The clinical goals for the shift include VSS; safety Over the shift, the patient did not make progress toward the following goals. Barriers to progression include dizziness. Recommendations to address these barriers include SBA with ambulating. Normal [facility] 30 Daily Case Managemen t Update Multidisciplinary rounds have been completed. Barriers to Discharge: Pending clinical course and improvement in clinical condition. Patient was transferred from [facility] with paroxysmal a-fib/flutter w/ RVR, nonsustained [...] Consultation Consultation and Management 05/25/23 1245 Normal [facility] 30 Problem: Pain - Adul t [...] and behaviors that affect risk of falls [place] fall precautions as indicated by assessment Educate [...] and acti (more content not included)... Normal [facility] 30 The patient is Moderately Stable - Low risk of patient condition declining or worsening The patient's goals for the shift include comfort The clinical goals for the shift include vss Over the shift, the patient did not make progress toward the following goals. Barriers to progression include hypokalemia. Recommendations to address these barriers include oral K. Normal [facility] APTTon 05-25-2023 ACTIVATED PARTIAL THROMBOPLASTIN TIME IN PPP BY COAGULATION ASSAY 86.2 Seconds High 25.0-35.0 [facility] Comment on above: Result Comment: Clin ical significance of the APTT is questionable in the presence of heparin. Performed By: #### L [id number] #### [facility] ([facility]) [address] [place] [address] ACTIVATED PARTIAL THROMBOPLASTIN TIME IN PPP BY COAGULATION ASSAY 100.9 Seconds High 25.0-35.0 [facility] Comment on above: Result Comment: Clin ical significance of the APTT is questionable in the presence of heparin. Performed By: #### L [id number] ####[facility] ([facility])[address] [place] [address] ACTIVATED PARTIAL THROMBOPLASTIN TIME IN PPP BY COAGULATION ASSAY 175.6 Seconds Critically high 25.0-35.0 [facility] Comment on above: Order Comment: Check aPTT every 6 hours while on heparin infusion, or per protocol. Result Comment: Clin ical significance of the APTT is questionable in the presence of heparin. Performed By: #### L [id number] ####[facility] ([facility])[address] [place] [address] BASIC METABOLIC PANELon 05-15 Anion gap [Moles/Vol] 8 mmol/L Normal 7-[address] [facility] Comment on above: Performed By: #### L [id number] #### [facility] ([facility]) [address] [place] [address] Calcium [Mass/Vol] 9.5 mg/dL Normal 8.6-10.3 [facility] Comment on above: Performed By: #### L [id number] #### [facility] ([facility]) [address] [place] [address] Chloride [Moles/Vol] 112 mmol/L High 98-107 [facility] Comment on above: Performed By: #### L [id number] #### [facility] ([facility]) [address] [place] [address] CO2 [Moles/Vol] 25 mmol/L Normal 21-31 [facility] Comment on above: Performed By: #### L [id number] #### [facility] ([facility]) [address] [place] [address] Creatinine [Mass/Vol] 0.80 mg/dL Normal 0.60-1.[address] [facility] Comment on above: Performed By: #### L [id number] #### [facility] ([facility]) [address] [place] [address] GLOMERULAR FILTRATION RATE ML/MIN/1.73 SQ M.PREDICTED 88.0 mL/min/1.73m*2 Normal >60.0 [facility] Comment on above: Result Comment: [facility]???s estimated glomerular filtration rate (eGFR) will [...] individuals. Performed By: #### L [id number] #### [facility] ([facility]) [address] [place] [address] Glucose [Mass/Vol] 97 mg/dL Normal 70-100 [facility] Comment on above: Performed By: #### L [id number] #### [facility] ([facility]) [address] [place] [address] Potassium [Moles/Vol] 4.4 mmol/L Normal 3.5-5.1 [facility] Comment on above: Performed By: #### L [id number] #### [facility] ([facility]) [address] [place] [address] Sodium [Moles/Vol] 141 mmol/L Normal 136-145 [facility] Comment on above: Performed By: #### L [id number] #### [facility] ([facility]) [address] [place] [address] Urea nitrogen [Mass/Vol] 19 mg/dL Normal 7-25 [facility] Comment on above: Performed By: #### L [id number] #### [facility] [address] [place] [address] UREA NITROGEN/CREATININE (MASS RATIO) IN SER/PLAS 23.8 Normal [facility] Comment on above: Performed By: #### L [id number] #### [facility] ([facility]) [address] [place] [address] CBCon 05-25-2023 Erythrocyte distribution width (RBC) [Ratio] 15.4 % High 11.5-15.0 [facility] Comment on above: Performed By: #### L [id number] #### [facility] ([facility]) [address] [place] [address] ERYTHROCYTE MEAN CORPUSCULAR HEMOGLOBIN CONCENTRATION (G/DL) BY AUTOMATED 31.9 g/dL Low 32.0-35.0 [facility] Comment on above: Performed By: #### L [id number] #### [facility] [address] [place] [address] Hematocrit (Bld) [Volume fraction] 32.9 % Low 36.0-48.0 [facility] Comment on above: Performed By: #### L [id number] #### [facility] ([facility]) [address] [place] [address] Hemoglobin (Bld) [Mass/Vol] 10.5 g/dL Low 12.0-15.0 [facility] Comment on above: Performed By: #### L [id number] #### [facility] ([facility]) [address] [place] [address] MCH (RBC) [Entitic mass] 26.1 pg Low 27.0-33.0 [facility] Comment on above: Performed By: #### L [id number] #### [facility] ([facility]) [address] [place] [address] MCV (RBC) [Entitic vol] 81.6 fL Low 82.0-98.0 U [facility] Comment on above: Performed By: #### L [id number] #### [facility] ([facility]) [address] [place] [address] PLATELETS (10*3/UL) IN BLOOD AUTOMATED COUNT 213 10*3/uL Normal 150-400 [facility] Comment on above: Performed By: #### L [id number] #### [facility] ([facility]) [address] [place] [address] RBC (Bld) [#/Vol] 4.03 10*6/uL Normal 3.80-5.00 [facility] Comment on above: Performed By: #### L [id number] #### [facility] ([facility]) [address] [place] [address] WBC (Bld) [#/Vol] 5.38 10*3/uL Normal 4.00-10.60 [facility] Comment on above: Performed By: #### L [id number] #### [facility] ([facility]) [address] [place] [address] CONSULTon 05-25-2023 CONSULT - Attestation signed by Perla Esquivel MD at 05/25/2023 3:40 PM I personally saw and examined the patient on the same date of service as resident/fellow Dr Marley. I discussed the findings and therapeutic plan with the resident/fellow Dr Marley. I agree with the documentation, except for any edits/updates below. Teaching Physician's Revisions: Perla Esquivel MD, MPH, [facility], [facility], [facility] Interventional Cardiology Pager Email: [email or web address] Cardiology Consult Note Reason for Consult: Chest pain and shortness of breath HPI: Shahida Mejia is a 52 y.o. female with medical history of heart failure with preserved ejection fraction, COPD, hypertension, nonsustained ventricular tachycardia seen on event monitor, frequent sinus pauses, who came to the hospital as a transfer from [facility] due to chest pain. Patient reports [...] Abnormal ECG, Arrhythmia, CHF (congestive heart failure) ([facility]), COPD (chronic obstructive pulmonary disease) (CMS/HCC), Hypertension, [...] results found. (more content not included)... Normal [facility] MAGNESIUMon 05-25-2023 Magnesium [Mass/Vol] 2.1 mg/dL Normal 1.9-2.7 [facility] Comment on above: Performed By: #### L [id number] #### [facility] ([facility]) [address] [place] [address] T3on 05-25-2023 TRIIODOTHYRONINE (T3) (NG/DL) IN SER/PLAS 247 ng/dL High 80-200 [facility] Comment on above: Result Comment: REFE RENCE INTERVAL: Triiodothyronine, Total (Total T3) Access complete set of age- and/or gender-specific reference intervals for this test in the [facility] Test Directory ([employer]). Performed By: [employer] [address] [place] [address] Tie Cutter: Roman Romo MD, PhD CLIA Number: [id number] Performed By: #### L [id number] ####[facility] ([facility])[address] [place] [address] T3, FREEon 05-25-2023 TRIIODOTHYRONINE (T3) FREE (PG/ML) IN SER/PLAS 3.8 pg/mL Normal 2.5-3.9 [facility] Comment on above: Performed By: #### L [id number] #### [facility] ([facility]) [address] [place] [address] T4, FREEon 05-25-2023 THYROXINE (T4) FREE (NG/DL) IN SER/PLAS 0.70 ng/dL Low 0.71-1.85 [facility] Comment on above: Performed By: #### L [id number] #### [facility] ([facility]) [address] [place] [address] THYROID STIMULATING IMMUNOGL OBULINon 05-25-2023 THYROID STIMULATING IMMUNOGLOBULIN >40.00 High <=0.54 [facility] Comment on above: Result Comment: INTE [...] medical history, and other findings. Performed By: [employer] [address] [place] [address] Tie Cutter: Roman Romo MD, PhD CLIA Number: [id number] Performed By: #### L [id number] ####[facility] ([place] [address] TROPONIN Ion 05-25-2023 Troponin I.cardiac [Mass/Vol] 0.01 ng/mL Normal 0.00-0.04 [facility] Comment on above: Performed By: #### L [id number] #### [facility] ([facility]) [address] [place] [address] Troponin I.cardiac [Mass/Vol] 0.01 ng/mL Normal 0.00-0.04 [facility] Comment on above: Performed By: #### L [id number] #### [facility] ([facility]) [address] [place] [address] TSH RECEPTOR ANTIBODYon 05-15 TSH RECEPTOR ANTIBODY 23.70 IU/L High <=1.75 [facility] Comment on above: Result Comment: Perf ormed By: [employer] [address] [place] [address] Tie Cutter: Roman Romo MD, PhD CLIA Number: [id number] Performed By: #### L [id number] ####[facility] ([facility])[address] [place] [address] TSH3 REFLEX TO FT4on 024 THYROTROPIN (MIU/L) IN SER/PLAS BY DETECTION LIMIT <= 0.05 MIU/L <0.01 Low 0.34-5.60 [facility] Comment on above: Performed By: #### L [id number] #### [facility] ([facility]) [address] [place] [address] 30on 05-24-2023 30 The patient is Moderately Stable - Low risk of patient condition declining or worsening The patient's goals for the shift include comfort The clinical goals for the shift include vss Over the shift, the patient did not make progress toward the following goals. Barriers to progression include afib w/ rvr. Recommendations to address these barriers include medication compliance. Normal [facility] APTTon 05-24-2023 ACTIVATED PARTIAL THROMBOPLASTIN TIME IN PPP BY COAGULATION ASSAY 30.0 Seconds Normal 25.0-35.0 [facility] Comment on above: Result Comment: Clin ical significance of the APTT is questionable in the presence of heparin. Performed By: #### L [id number] #### [facility] ([facility]) [address] [place] [address] CBC WITH AUTO DIFFERENTIALon 05-24-2023 Basophils (Bld) [#/Vol] 0.01 10*3/uL Normal 0.00-0.20 [facility] Comment on above: Performed By: #### L [id number] ####[facility] ([facility])[address] [place] [address] Basophils/100 WBC (Bld) 0.2 % Normal 0.0-1.0 [facility] Comment on above: Performed By: #### L [id number] ####[facility] ([facility])[address] [place] [address] Eosinophils (Bld) [#/Vol] 0.03 10*3/uL Normal 0.00-0.50 [facility] Comment on above: Performed By: #### L [id number] ####[facility] ([facility])[address] [place] [address] Eosinophils/100 WBC (Bld) 0.6 % Normal 0.0-6.0 [facility] Comment on above: Performed By: #### L [id number] ####[facility] ([facility])[address] [place] [address] Erythrocyte distribution width (RBC) [Ratio] 15.4 % High 11.5-15.0 [facility] Comment on above: Performed By: #### L [id number] ####[facility] ([facility])[address] [place] [address] ERYTHROCYTE MEAN CORPUSCULAR HEMOGLOBIN CONCENTRATION (G/DL) BY AUTOMATED 32.7 g/dL Normal 32.0-35.0 [facility] Comment on above: Performed By: #### L [id number] ####[facility] ([facility])[address] [place] [address] Hematocrit (Bld) [Volume fraction] 33.3 % Low 36.0-48.0 [facility] Comment on above: Performed By: #### L [id number] ####[facility] ([facility])[address] [place] [address] Hemoglobin (Bld) [Mass/Vol] 10.9 g/dL Low 12.0-15.0 [facility] Comment on above: Performed By: #### L [id number] ####[facility] ([facility])[address] [place] [address] Immature granulocytes (Bld) [#/Vol] 0.01 10*3/uL Normal 0.00-0.20 [facility] Comment on above: Performed By: #### L [id number] ####[facility] ([facility] [place] [address] Immature granulocytes/100 WBC (Bld) 0.2 % Normal 0.0-1.0 [facility] Comment on above: Performed By: #### L [id number] ####[facility] ([facility])[address] [place] [address] Lymphocytes (Bld) [#/Vol] 2.12 10*3/uL Normal 1.20-4.00 [facility] Comment on above: Performed By: #### L [id number] ####[facility] ([facility])[address] [place] [address] Lymphocytes/100 WBC (Bld) 43.0 % Normal 20.0-45.0 [facility] Comment on above: Performed By: #### L [id number] ####[facility] ([facility])[address] [place] [address] MCH (RBC) [Entitic mass] 26.1 pg Low 27.0-33.0 [facility] Comment on above: Performed By: #### L [id number] ####[facility] ([facility])[address] [place] [address] MCV (RBC) [Entitic vol] 79.9 fL Low 82.0-98.0 U [facility] Comment on above: Performed By: #### L [id number] ####[facility] ([facility])[address] [place] [address] Monocytes (Bld) [#/Vol] 0.31 10*3/uL Normal 0.10-1.00 [facility] Comment on above: Performed By: #### L [id number] ####[facility] ([facility])[address] [place] [address] Monocytes/100 WBC (Bld) 6.3 % Normal 5.0-12.0 [facility] Comment on above: Performed By: #### L [id number] ####[facility] ([facility])[address] [place] [address] Neutrophils (Bld) [#/Vol] 2.45 10*3/uL Normal 1.60-7.60 [facility] Comment on above: Performed By: #### L [id number] ####[facility] ([facility])[address] [place] [address] Neutrophils/100 WBC (Bld) 49.7 % Normal 40.0-72.0 [facility] Comment on above: Performed By: #### L [id number] ####[facility] ([facility])[address] [place] [address] NRBC (PER 100 WBCS) BY AUTOMATED COUNT 0.0 % Normal 0 [facility] Comment on above: Performed By: #### L [id number] ####[facility] ([facility])[address] [place] [address] PLATELETS (10*3/UL) IN BLOOD AUTOMATED COUNT 237 10*3/uL Normal 150-400 [facility] Comment on above: Performed By: #### L [id number] ####[facility] ([facility])[address] [place] [address] RBC (Bld) [#/Vol] 4.17 10*6/uL Normal 3.80-5.00 [facility] Comment on above: Performed By: #### L [id number] ####[facility] ([facility])[address] [place] [address] WBC (Bld) [#/Vol] 4.93 10*3/uL Normal 4.00-10.60 [facility] Comment on above: Performed By: #### L [id number] ####[facility] ([facility])[address] [place] [address] COMPREHENSIVE METABOLIC PANE Hank 05-24-2023 Albumin [Mass/Vol] 4.2 g/dL Normal 3.5-5.7 [facility] Comment on above: Performed By: #### L [id number] ####[facility] ([facility])[address] [place] [address] ALP [Catalytic activity/Vol] 149 U/L High 34-104 [facility] Comment on above: Performed By: #### L [id number] ####[facility] ([facility])[address] [place] [address] ALT [Catalytic activity/Vol] 25 U/L Normal 7-52 [facility] Comment on above: Performed By: #### L [id number] ####[facility] ([facility])[address] [place] [address] Anion gap [Moles/Vol] 8 mmol/L Normal 7-[address] [facility] Comment on above: Performed By: #### L [id number] ####[facility] ([facility])[address] [place] [address] AST [Catalytic activity/Vol] 15 U/L Normal 13-39 [facility] Comment on above: Performed By: #### L [id number] ####[facility] ([facility])[address] [place] [address] Bilirubin [Mass/Vol] 0.4 mg/dL Normal 0.3-1.0 [facility] Comment on above: Performed By: #### L [id number] ####[facility] ([facility])[address] [place] [address] Calcium [Mass/Vol] 9.6 mg/dL Normal 8.6-10.3 [facility] Comment on above: Performed By: #### L [id number] ####[facility] ([facility])[address] [place] [address] Chloride [Moles/Vol] 111 mmol/L High 98-107 [facility] Comment on above: Performed By: #### L [id number] ####[facility] ([facility])[address] [place] [address] CO2 [Moles/Vol] 26 mmol/L Normal 21-31 [facility] Comment on above: Performed By: #### L [id number] ####[facility] ([facility])[address] [place] [address] Creatinine [Mass/Vol] 0.85 mg/dL Normal 0.60-1.[address] [facility] Comment on above: Performed By: #### L [id number] ####[facility] ([facility])[address] [place] [address] GLOMERULAR FILTRATION RATE ML/MIN/1.73 SQ M.PREDICTED 81.9 mL/min/1.73m*2 Normal >60.0 [facility] Comment on above: Result Comment: [facility]???s estimated glomerular filtration rate (eGFR) will [...] of individuals. Performed By: #### L [id number] ####[facility] ([facility])[address] [place] [address] Glucose [Mass/Vol] 132 mg/dL High 70-100 [facility] Comment on above: Performed By: #### L [id number] ####[facility] ([facility])[address] [place] [address] Potassium [Moles/Vol] 3.3 mmol/L Low 3.5-5.[address] [facility] Comment on above: Performed By: #### L [id number] ####[facility] ([facility])[address] [place] [address] Protein [Mass/Vol] 6.3 g/dL Normal 6.0-8.3 [facility] Comment on above: Performed By: #### L [id number] ####[facility] ([facility])[address] [place] [address] Sodium [Moles/Vol] 142 mmol/L Normal 136-145 [facility] Comment on above: Performed By: #### L [id number] ####[facility] ([facility])[address] [place] [address] Urea nitrogen [Mass/Vol] 22 mg/dL Normal 7-25 [facility] Comment on above: Performed By: #### L [id number] ####[facility] ([facility])[address] [place] [address] UREA NITROGEN/CREATININE (MASS RATIO) IN SER/PLAS 25.9 Normal [facility] Comment on above: Performed By: #### L [id number] ####[facility] ([facility])[address] [place] [address] LACTIC ACID WITH 4 HOUR REFL EXon 05-24-2023 LACTATE (MMOL/L) IN SER/PLAS 0.9 mmol/L Normal 0.5-2.2 [facility] Comment on above: Performed By: #### L [id number] #### [facility] ([facility]) [address] [place] [address] MAGNESIUMon 05-24-2023 Magnesium [Mass/Vol] 1.6 mg/dL Low 1.9-2.7 [facility] Comment on above: Performed By: #### L [id number] #### [facility] ([facility] [address] [place] [address] PHOSPHORUSon 05-24-2023 Magnesium [Mass/Vol] 2.1 mg/dL Low 2.5-5.0 [facility] Comment on above: Performed By: #### L [id number] #### [facility] ([facility]) [address] [place] [address] PROTIME-INRon 05-24-2023 INR IN PPP BY COAGULATION ASSAY 1.19 High 0.90-1.10 [facility] Comment on above: Result Comment: ACCC [...] 1995;[id number]. Performed By: #### L [id number] #### [facility] [address] [place] [address] PROTHROMBIN TIME (PT) IN PPP BY COAGULATION ASSAY 15.1 Seconds High 12.3-14.8 [facility] Comment on above: Performed By: #### L [id number] #### [facility] [address] [place] [address] TROPONIN Ion 05-24-2023 Troponin I.cardiac [Mass/Vol] 0.01 ng/mL Normal 0.00-0.04 [facility] Comment on above: Performed By: #### L [id number] #### [facility] ([facility]) [address] [facility] [place] [address] Office Visiton 04-18-2023 Follow-up visit [id number] Deshawn Mejianathalie Ny 1970 Date Provider Department Center 04/18/2023 FABIAN DALEY [facility] Family History Problem Relation Age of Onset Other Mother Coronary artery disease Father Other Father Family Status - Relation Status Age at Mother Father Level of Service:43926 MO OFFICE/OUTPATIENT ESTABLISHED MOD MDM 30-39 MIN Normal [facility] Orders Onlyon 04-18-2023 Orders Only [id number] Deshawn Mejianathalie Ny 1970 Date Provider Department Center 04/18/2023 OTONIEL FOY [facility] Family History Problem Relation Age of Onset Other Mother Coronary artery disease Father Other Father Family Status - Relation Status Age at Mother Father Normal [facility] Office Visiton 03-07-2023 Follow-up visit [id number] Shahida Mejia 1970 Date Provider Department Center 03/07/2023 FABIAN DALEY [facility] Family History Problem Relation Age of Onset Other Mother Coronary artery disease Father Other Father Family Status - Relation Status Age at Mother Father Level of Service:63459 MO OFFICE/OUTPATIENT NEW HIGH MDM 60-74 MINUTES Normal [facility] Office Visiton 01-09-2023 Follow-up visit [id number] Shahida Mejia 1970 Date Provider Department Center 01/09/2023 CHOLO THIBODEAUX [facility] No family history on file Level of Service:76918 MO OFFICE/OUTPATIENT ESTABLISHED MOD MDM 30-39 MIN Normal [facility] Office Visiton 11-25-2022 Follow-up visit [id number] Shahida Mejia 1970 F Date Provider Department Center 11/25/2022 [facility]OLO TH[facility] No family history on file Level of Service:40217 MO OFFICE/OUTPATIENT ESTABLISHED MOD MDM 30-39 MIN Normal [facility] 37on 10-28-2022 37 -Weigh yourself daily, if you gain more than 2 Ibs in one day or 5 Ibs in 1 week take Lasix for 3 days and let us know -Start Farxiga 10 mg daily -Stop taking Losartan-hydrochlorot hiazide -Start Losartan 100 mg daily -Check labs in 1 week after starting Farxiga Normal [facility] Office Visiton 10-28-2022 Follow-up visit [id number] Shahida Mejia 1970 F Date Provider Department Center 10/28/2022 [id number] CLAROS CARD [place] [facility] No family history on file Level of Service:15472 MO OFFICE/OUTPATIENT ESTABLISHED MOD MDM 30-39 MIN Reason for Visit and Comments: New Patient [[id number]] - New pt here for Hospital Follow up Holter motion results Normal [facility] BNPon 10-09-2022 Natriuretic peptide B (Bld) [Mass/Vol] 79017.0 pg/mL Critically high <=900.0 [facility] Comment on above: Performed By: #### M G, BNP, CMP #### [facility] [address] [place] [address] Dr. Celina Venegas CBC AUTO DIFFon 10-09-2022 BASO # 0.0 103/ul Normal 0.0-0.1 [facility] Comment on above: Performed By: #### H STROPN #### [facility] [address] [place] [address] Dr. Celina Venegas Basophils/100 WBC (Bld) 0.1 % Critically low 0.2-2.0 [facility] Comment on above: Performed By: #### H STROPN #### [facility] [address] [place] [address] Dr. Celina Venegas EO # 0.0 103/ul Normal 0.0-0.7 [facility] Comment on above: Performed By: #### H STROPN #### [facility] [address] [place] [address] Dr. Celina Venegas Eosinophils/100 WBC (Bld) 0.1 % Critically low 0.9-7.0 [facility] Comment on above: Performed By: #### H STROPN #### [facility] [address] [place] [address] Dr. Celina Venegas Erythrocyte distribution width (RBC) [Ratio] 14.9 % Normal 11.0-15.0 [facility] Comment on above: Performed By: #### H STROPN #### [facility] [address] [place] [address] Dr. Celina Venegas Hematocrit (Bld) [Volume fraction] 28.5 % Critically low 36.0-48.0 [facility] Comment on above: Performed By: #### H STROPN #### [facility] [address] [place] [address] Dr. Celina Venegas Hemoglobin (Bld) [Mass/Vol] 9.1 g/dL Critically low 12.0-16.0 [facility] Comment on above: Performed By: #### H STROPN #### [facility] [address] [place] [address] Dr. Celina Venegas IG # 0.08 10e3/ul Critically high 0.00-0.03 [facility] Comment on above: Performed By: #### H STROPN #### [facility] [address] [place] [address] Dr. Celina Venegas IG % 1.2 % Critically high 0.0-0.5 [facility] Comment on above: Performed By: #### H STROPN #### [facility] [address] [place] [address] Dr. Celina Venegas LYMPH # 1.8 103/ul Normal 1.2-3.8 [facility] Comment on above: Performed By: #### H STROPN #### [facility] [address] [place] [address] Dr. Celina Venegas Lymphocytes/100 WBC (Bld) 26.7 % Normal 20.5-60.0 [facility] Comment on above: Performed By: #### H STROPN #### [facility] [address] [place] [address] Dr. Celina Venegas MANUAL DIFF REQ NO Normal [facility] Comment on above: Performed By: #### H STROPN #### [facility] [address] [place] [address] Dr. Celina Venegas MCH (RBC) [Entitic mass] 25.0 pg Critically low 26.7-34.0 [facility] Comment on above: Performed By: #### H STROPN #### [facility] [address] [place] [address] Dr. Celina Venegas MCHC (RBC) [Mass/Vol] 31.9 g/dL Normal 29.9-35.2 [facility] Comment on above: Performed By: #### H STROPN #### [facility] [address] [place] [address] Dr. Celina Venegas MCV (RBC) [Entitic vol] 78.3 fL Critically low 81.0-99. 0 [facility] Comment on above: Performed By: #### H STROPN #### [facility] [address] [place] [address] Dr. Celina Venegas MONO # 0.4 103/ul Normal 0.3-0.8 [facility] Comment on above: Performed By: #### H STROPN #### [facility] [address] [place] [address] Dr. Celina Venegas Monocytes/100 WBC (Bld) 5.5 % Normal 1.7-12.0 [facility] Comment on above: Performed By: #### H STROPN #### [facility] [address] [place] [address] Dr. Celina Venegas NEUT # 4.5 103/ul Normal 1.4-6.5 [facility] Comment on above: Performed By: #### H STROPN #### [facility] [address] [place] [address] Dr. Celina Venegas Neutrophils/100 WBC (Bld) 66.4 % Normal 43.0-75.0 [facility] Comment on above: Performed By: #### H STROPN #### [facility] [address] [place] [address] Dr. Celina Venegas Platelet mean volume (Bld) [Entitic vol] 10.4 fL Normal 9.5-13.5 [facility] Comment on above: Performed By: #### H STROPN #### [facility] [address] [address] [address] Celina Venegas PLT 219 103/ul Normal 150-450 [facility] Comment on above: Performed By: #### H STROPN #### [facility] [address] [address] [address] Ceilna Venegas RBC 3.64 106/ul Critically low 4.20-5.40 [facility] Comment on above: Performed By: #### H STROPN #### [facility] [address] [address] [address] Celina Venegas WBC 6.8 103/ul Normal 4.0-11.0 [facility] Comment on above: Performed By: #### H STROPN #### [facility] [address] [place] [address] Dr. Celina Venegas MAGNESIUMon 10-09-2022 Magnesium [Mass/Vol] 1.7 mg/dL Critically low 1.8-2.4 [facility] Comment on above: Performed By: #### M G, BNP, CMP #### [facility] [address] [place] [address] Dr. Celina Venegas POINT OF CARE GLUCOSEon 09-13 Glucose [Mass/Vol] 120 mg/dL Critically high 74-106 [facility] Comment on above: Performed By: #### H STROPN #### [facility] [address] [place] [address] Dr. Celina Venegas POTASSIUMon 10-09-2022 Potassium [Moles/Vol] 3.6 mmol/L Normal 3.5-5.1 [facility] Comment on above: Performed By: #### M G, BNP, CMP #### [facility] [address] [place] [address] Dr. Celina Venegas PROF 14(COMP METB)on 023 Albumin [Mass/Vol] 2.6 g/dL Critically low 3.4-5.0 [facility] Comment on above: Performed By: #### M G, BNP, CMP #### [facility] [address] [place] [address] Dr. Celina Venegas Albumin/Globulin [Mass ratio] 0.8 {ratio} Normal [facility] Comment on above: Performed By: #### M G, BNP, CMP #### [facility] [address] [place] [address] Dr. Celina Venegas ALP [Catalytic activity/Vol] 112 U/L Normal 46-116 [facility] Comment on above: Performed By: #### M G, BNP, CMP #### [facility] [address] [place] [address] Dr. Celina Venegas ALT [Catalytic activity/Vol] 16 U/L Normal 14-59 [facility] Comment on above: Performed By: #### M G, BNP, CMP #### [facility] [address] [place] [address] Dr. Celina Venegas Anion gap [Moles/Vol] 10.7 mmol/L Normal [facility] Comment on above: Performed By: #### M G, BNP, CMP #### [facility] [address] [place] [address] Dr. Celina Venegas AST [Catalytic activity/Vol] 13 U/L Critically low 15-37 [facility] Comment on above: Performed By: #### M G, BNP, CMP #### [facility] [address] [place] [address] Dr. Celina Venegas Bilirubin [Mass/Vol] 0.3 mg/dL Normal 0.2-1.0 [facility] Comment on above: Performed By: #### M G, BNP, CMP #### [facility] [address] [place] [address] Dr. Celina Venegas Calcium [Mass/Vol] 8.6 mg/dL Normal 8.5-10.1 [facility] Comment on above: Performed By: #### M G, BNP, CMP #### [facility] [address] [place] [address] Dr. Celina Venegas Chloride [Moles/Vol] 109 mmol/L Critically high 98-107 [facility] Comment on above: Performed By: #### M G, BNP, CMP #### [facility] [address] [place] [address] Dr. Celina Venegas CO2 [Moles/Vol] 26.5 mmol/L Normal 21.0-32.[address] [facility] Comment on above: Performed By: #### M G, BNP, CMP #### [facility] [address] [address] [address] Celina Venegas Creatinine [Mass/Vol] 0.88 mg/dL Normal 0.55-1.02 [facility] Comment on above: Performed By: #### M G, BNP, CMP #### [facility] [address] [address] [address] Celina Venegas EGFR-AF BELARUSIAN >60 Normal >=[address] [facility] Comment on above: Performed By: #### M G, BNP, CMP #### [facility] [address] [address] [address] Celina Venegas EGFR-NON AF BELARUSIAN >60 Normal >=60 [facility] Comment on above: Performed By: #### M G, BNP, CMP #### [facility] [address] [address] [address] Celina Venegas Globulin (S) [Mass/Vol] 3.4 g/dL Normal [facility] Comment on above: Performed By: #### M G, BNP, CMP #### [facility] [address] [address] [address] Celina Venegas Glucose [Mass/Vol] 84 mg/dL Normal 74-106 [facility] Comment on above: Performed By: #### M G, BNP, CMP #### [facility] [address] [address] [address] Celina Venegas Potassium [Moles/Vol] 2.2 mmol/L Critically low 3.5-5.1 [facility] Comment on above: Performed By: #### M G, BNP, CMP #### [facility] [address] [address] [address] Celina Venegas Protein [Mass/Vol] 6.0 g/dL Critically low 6.4-8.2 [facility] Comment on above: Performed By: #### M G, BNP, CMP #### [facility] [address] [place] [address] Dr. Celina Venegas Sodium [Moles/Vol] 142 mmol/L Normal 136-145 [facility] Comment on above: Performed By: #### M G, BNP, CMP #### [facility] [address] [place] [address] Dr. Celina Venegas Urea nitrogen [Mass/Vol] 24.0 mg/dL Critically high 7.0-18.0 [facility] Comment on above: Performed By: #### M G, BNP, CMP #### [facility] [address] [place] [address] Dr. Celina Venegas Urea nitrogen/Creatinine [Mass ratio] 27.3 mg/mg Normal [facility] Comment on above: Performed By: #### M Lance BNP, CMP #### [facility] [address] [place] [address] Dr. Celina Venegas PROTIMEon 10-09-2022 INR Coag (PPP) [Relative time] 1.04 {INR} Normal [facility] Comment on above: Performed By: #### B [id number] #### [facility] [address] [place] [address] Dr. Celina Venegas INR GUIDELINES SEE BELOW Normal [facility] Comment on above: Result Comment: CAESAR RED INR: 2.0 - 3.0 CONDITIONS NOT LISTED BELOW 2.5 - 3.5 FOR PROSTHETIC HEART VALVE REPLACEMENT 2.5 - 3.5 RECURRENT THROMBOSIS Performed By: #### B [id number] #### [facility] [address] [place] [address] Dr. Celina Venegas PT Coag (PPP) [Time] 11.0 s Normal 9.0-11.6 [facility] Comment on above: Performed By: #### B [id number] #### [facility] [address] [place] [address] Dr. Celina Venegas PTTon 10-09-2022 aPTT Coag (Bld) [Time] 23.9 s Normal 22.3-36.2 [facility] Comment on above: Performed By: #### B LDCX2 #### [facility] [address] [place] [address] Dr. Celina Venegas BNPon 10-08-2022 Natriuretic peptide B (Bld) [Mass/Vol] 16425.0 pg/mL Critically high <=900.0 [facility] Comment on above: Performed By: #### P REG #### [facility] [address] [place] [address] Dr. Celina Venegas CBC AUTO DIFFon 10-08-2022 BASO # 0.0 103/ul Normal 0.0-0.1 [facility] Comment on above: Performed By: #### B [id number] #### [facility] [address] [place] [address] Dr. Celina Venegas Basophils/100 WBC (Bld) 0.1 % Critically low 0.2-2.0 [facility] Comment on above: Performed By: #### B [id number] #### [facility] [address] [place] [address] Dr. Celina Venegas EO # 0.0 103/ul Normal 0.0-0.7 [facility] Comment on above: Performed By: #### B [id number] #### [facility] [address] [place] [address] Dr. Celina Venegas Eosinophils/100 WBC (Bld) 0.0 % Critically low 0.9-7.0 [facility] Comment on above: Performed By: #### B [id number] #### [facility] [address] [place] [address] Dr. Celina Venegas Erythrocyte distribution width (RBC) [Ratio] 14.6 % Normal 11.0-15.0 [facility] Comment on above: Performed By: #### B [id number] #### [facility] [address] [place] [address] Dr. Celina Venegas Hematocrit (Bld) [Volume fraction] 26.6 % Critically low 36.0-48.0 [facility] Comment on above: Performed By: #### B [id number] #### [facility] [address] [place] [address] Dr. Celina Venegas Hemoglobin (Bld) [Mass/Vol] 8.4 g/dL Critically low 12.0-16.0 [facility] Comment on above: Performed By: #### B [id number] #### [facility] [address] [place] [address] Dr. Celina Venegas IG # 0.03 10e3/ul Normal 0.00-0.03 [facility] Comment on above: Performed By: #### B [id number] #### [facility] [address] [place] [address] Dr. Celina Venegas IG % 0.4 % Normal 0.0-0.5 [facility] Comment on above: Performed By: #### B [id number] #### [facility] [address] [place] [address] Dr. Celina Venegas LYMPH # 0.7 103/ul Critically low 1.2-3.8 [facility] Comment on above: Performed By: #### B [id number] #### [facility] [address] [place] [address] Dr. Celina Venegas Lymphocytes/100 WBC (Bld) 10.3 % Critically low 20.5-60.0 [facility] Comment on above: Performed By: #### B [id number] #### [facility] [address] [place] [address] Dr. Celina Venegas MANUAL DIFF REQ NO Normal [facility] Comment on above: Performed By: #### B [id number] #### [facility] [address] [place] [address] Dr. Celina Venegas MCH (RBC) [Entitic mass] 25.2 pg Critically low 26.7-34.0 [facility] Comment on above: Performed By: #### B [id number] #### [facility] [address] [place] [address] Dr. Celina Venegas MCHC (RBC) [Mass/Vol] 31.6 g/dL Normal 29.9-35.2 [facility] Comment on above: Performed By: #### B [id number] #### [facility] [address] [place] [address] Dr. Celina Venegas MCV (RBC) [Entitic vol] 79.9 fL Critically low 81.0-99. 0 [facility] Comment on above: Performed By: #### B [id number] #### [facility] [address] [place] [address] Dr. Celina Venegas MONO # 0.3 103/ul Normal 0.3-0.8 [facility] Comment on above: Performed By: #### B [id number] #### [facility] [address] [place] [address] Dr. Celina Venegas Monocytes/100 WBC (Bld) 4.9 % Normal 1.7-12.0 [facility] Comment on above: Performed By: #### B [id number] #### [facility] [address] [place] [address] Dr. Celina Venegas NEUT # 5.8 103/ul Normal 1.4-6.5 [facility] Comment on above: Performed By: #### B [id number] #### [facility] [address] [place] [address] Dr. Celina Venegas Neutrophils/100 WBC (Bld) 84.3 % Critically high 43.0-75.0 [facility] Comment on above: Performed By: #### B [id number] #### [facility] [address] [place] [address] Dr. Celina Venegas Platelet mean volume (Bld) [Entitic vol] 10.5 fL Normal 9.5-13.5 [facility] Comment on above: Performed By: #### B [id number] #### [facility] [address] [place] [address] Dr. Celina Venegas PLT 207 103/ul Normal 150-450 [facility] Comment on above: Performed By: #### B [id number] #### [facility] [address] [place] [address] Dr. Celina Venegas RBC 3.33 106/ul Critically low 4.20-5.40 [facility] Comment on above: Performed By: #### B [id number] #### [facility] [address] [place] [address] Dr. Celina Venegas WBC 6.9 103/ul Normal 4.0-11.0 [facility] Comment on above: Performed By: #### B [id number] #### [facility] [address] [place] [address] Dr. Celina Venegas MAGNESIUMon 10-08-2022 Magnesium [Mass/Vol] 1.8 mg/dL Normal 1.8-2.4 [facility] Comment on above: Performed By: #### P REG #### [facility] [address] [place] [address] Dr. Celina Venegas POINT OF CARE GLUCOSEon 09-13 Glucose [Mass/Vol] 180 mg/dL Critically high 74-106 [facility] Comment on above: Performed By: #### M G, BNP, CMP #### [facility] [address] [place] [address] Dr. Celina Venegas Glucose [Mass/Vol] 116 mg/dL Critically high 74-106 [facility] Comment on above: Performed By: #### M G, BNP, CMP #### [facility] [address] [place] [address] Dr. Celina Venegas PROF 14(COMP METB)on 023 Albumin [Mass/Vol] 2.4 g/dL Critically low 3.4-5.0 [facility] Comment on above: Performed By: #### P REG #### [facility] [address] [place] [address] Dr. Celina Venegas Albumin/Globulin [Mass ratio] 0.7 {ratio} Normal [facility] Comment on above: Performed By: #### P REG #### [facility] [address] [place] [address] Dr. Celina Venegas ALP [Catalytic activity/Vol] 124 U/L Critically high 46-116 [facility] Comment on above: Performed By: #### P REG #### [facility] [address] [place] [address] Dr. Celina Venegas ALT [Catalytic activity/Vol] 17 U/L Normal 14-59 [facility] Comment on above: Performed By: #### P REG #### [facility] [address] [address] [address] Celina Venegas Anion gap [Moles/Vol] 10.6 mmol/L Normal [facility] Comment on above: Performed By: #### P REG #### [facility] [address] [address] [address] Celina Venegas AST [Catalytic activity/Vol] 14 U/L Critically low 15-37 [facility] Comment on above: Performed By: #### P REG #### [facility] [address] [address] [address] Celina Venegas Bilirubin [Mass/Vol] 0.2 mg/dL Normal 0.2-1.0 [facility] Comment on above: Performed By: #### P REG #### [facility] [address] [address] [address] Celina Venegas Calcium [Mass/Vol] 9.1 mg/dL Normal 8.5-10.1 [facility] Comment on above: Performed By: #### P REG #### [facility] [address] [address] [address] Celina Venegas Chloride [Moles/Vol] 110 mmol/L Critically high 98-107 [facility] Comment on above: Performed By: #### P REG #### [facility] [address] [address] [address] Celina Venegas CO2 [Moles/Vol] 26.8 mmol/L Normal 21.0-32.[address] [facility] Comment on above: Performed By: #### P REG #### [facility] [address] [address] [address] Celina Venegas Creatinine [Mass/Vol] 0.81 mg/dL Normal 0.55-1.02 [facility] Comment on above: Performed By: #### P REG #### [facility] [address] [address] [address] Celina Venegas EGFR-AF BELARUSIAN >60 Normal >=[address] [facility] Comment on above: Performed By: #### P REG #### [facility] [address] [address] [address] Celina Venegas EGFR-NON AF BELARUSIAN >60 Normal >=60 [facility] Comment on above: Performed By: #### P REG #### [facility] [address] [place] [address] Dr. Celina Venegas Globulin (S) [Mass/Vol] 3.6 g/dL Normal [facility] Comment on above: Performed By: #### P REG #### [facility] [address] [address] [address] Celina Venegas Glucose [Mass/Vol] 145 mg/dL Critically high 74-106 [facility] Comment on above: Performed By: #### P REG #### [facility] [address] [place] [address] Dr. Celina Venegas Potassium [Moles/Vol] 3.4 mmol/L Critically low 3.5-5.1 [facility] Comment on above: Performed By: #### P REG #### [facility] [address] [place] [address] Dr. Celina Venegas Protein [Mass/Vol] 6.0 g/dL Critically low 6.4-8.2 [facility] Comment on above: Performed By: #### P REG #### [facility] [address] [place] [address] Dr. Celina Venegas Sodium [Moles/Vol] 144 mmol/L Normal 136-145 [facility] Comment on above: Performed By: #### P REG #### [facility] [address] [place] [address] Dr. Celina Venegas Urea nitrogen [Mass/Vol] 20.0 mg/dL Critically high 7.0-18.0 [facility] Comment on above: Performed By: #### P REG #### [facility] [address] [place] [address] Dr. Celina Venegas Urea nitrogen/Creatinine [Mass ratio] 24.7 mg/mg Normal [facility] Comment on above: Performed By: #### P REG #### [facility] [address] [place] [address] Dr. Celina Venegas PROTIMEon 10-08-2022 INR Coag (PPP) [Relative time] 1.04 {INR} Normal [facility] Comment on above: Performed By: #### H STROPN #### [facility] [address] [place] [address] Dr. Celina Venegas INR GUIDELINES SEE BELOW Normal [facility] Comment on above: Result Comment: CAESAR RED INR: 2.0 - 3.0 CONDITIONS NOT LISTED BELOW 2.5 - 3.5 FOR PROSTHETIC HEART VALVE REPLACEMENT 2.5 - 3.5 RECURRENT THROMBOSIS Performed By: #### H STROPN #### [facility] [address] [place] [address] Dr. Celina Venegas PT Coag (PPP) [Time] 11.0 s Normal 9.0-11.6 [facility] Comment on above: Performed By: #### H STROPN #### [facility] [address] [place] [address] Dr. Celina Venegas PTTon 10-08-2022 aPTT Coag (Bld) [Time] 26.8 s Normal 22.3-36.2 Th [facility] Comment on above: Performed By: #### H STROPN #### [facility] [address] [place] [address] Dr. Celina Venegas XR CHEST 1 Von [...] MYCHAL STOREY Date: 2022-10-08 05:51 Normal [facility] BLOOD GASES BTYon 10-07-2022 02 MODE VENTILATOR Normal [facility] Comment on above: Performed By: #### M G, BNP, CMP #### [facility] [address] [place] [address] Dr. Celina Venegas ALLENS TEST Positive Normal [facility] Comment on above: Performed By: #### M G, BNP, CMP #### [facility] [address] [address] [address] Celina Venegas Base excess Calc (Bld) [Moles/Vol] -6.1000 mmol/L Critically low -2.0-2.0 [facility] Comment on above: Performed By: #### M G, BNP, CMP #### [facility] [address] [address] [address] Celina Venegas BIPAP PRESSURE Normal [facility] Comment on above: Performed By: #### M G, BNP, CMP #### [facility] [address] [place] [address] Dr. Celina Venegas CPAP [facility] Comment on above: Performed By: #### M G, BNP, CMP #### [facility] [address] [place] [address] Dr. Celina Venegas FIO2 30.00 % [facility] Comment on above: Performed By: #### M G, BNP, CMP #### [facility] [address] [place] [address] Dr. Celina Venegas HCO3 (Bld) [Moles/Vol] 20.2 mmol/L Critically low 22.0-26. 0 [facility] Comment on above: Performed By: #### M G, BNP, CMP #### [facility] [address] [place] [address] Dr. Celina Venegas LPM [facility] Comment on above: Performed By: #### M G, BNP, CMP #### [facility] [address] [place] [address] Dr. Celina Venegas MINUTE VOLUME Normal [facility] Comment on above: Performed By: #### M G, BNP, CMP #### [facility] [address] [place] [address] Dr. Celina Venegas Oxygen (Bld) [Partial pressure] 102.0 mm[Hg] Critically high 80.0-100.0 [facility] Comment on above: Performed By: #### M G, BNP, CMP #### [facility] [address] [address] [address] Celina Venegas Oxygen saturation in Blood 97.8 % Normal 95.0-100.0 [facility] Comment on above: Performed By: #### M G, BNP, CMP #### [facility] [address] [address] [address] Celina Venegas PCO2 40.9 mmHg Normal 35.0-45.0 [facility] Comment on above: Performed By: #### M G, BNP, CMP #### [facility] [address] [address] [address] Celina Venegas PEEP 5 [facility] Comment on above: Performed By: #### M G, BNP, CMP #### [facility] [address] [place] [address] Dr. Celina Venegas pH (Bld) 7.303 [pH] Critically low 7.350-7.450 [facility] Comment on above: Performed By: #### M G, BNP, CMP #### [facility] [address] [address] [address] Celina Venegas PIP [facility] Comment on above: Performed By: #### M G, BNP, CMP #### [facility] [address] [address] [address] Celina Venegas PS [facility] Comment on above: Performed By: #### M G, BNP, CMP #### [facility] [address] [address] [address] Celina Venegas PUNCTURE SITE RR [facility] Comment on above: Performed By: #### M G, BNP, CMP #### [facility] [address] [address] [address] Celina Venegas RATE 16 bpm [facility] Comment on above: Performed By: #### M G, BNP, CMP #### [facility] [address] [address] [address] Celina Venegas VENT MODE A/C [facility] Comment on above: Performed By: #### M G, BNP, CMP #### [facility] [address] [address] [address] Celina Venegas VT 400 ML Normal [facility] Comment on above: Performed By: #### M G, BNP, CMP #### [facility] [address] [address] [address] Celina Venegas Base excess Calc (Bld) [Moles/Vol] -2.5000 mmol/L Critically low -2.0-2.0 [facility] Comment on above: Performed By: #### M G, BNP, CMP #### [facility] [address] [address] [address] Celina Venegas HCO3 (Bld) [Moles/Vol] 23.3 mmol/L Normal 22.0-26.0 [facility] Comment on above: Performed By: #### M G, BNP, CMP #### [facility] [address] [place] [address] Dr. Celina Venegas Oxygen (Bld) [Partial pressure] 97.7 mm[Hg] Normal 80.0-100.0 [facility] Comment on above: Performed By: #### M G, BNP, CMP #### [facility] [address] [place] [address] Dr. Celina Venegas Oxygen saturation in Blood 98.0 % Normal 95.0-100.0 [facility] Comment on above: Performed By: #### M G, BNP, CMP #### [facility] [address] [place] [address] Dr. Celina Venegas PCO2 43.6 mmHg Normal 35.0-45.0 [facility] Comment on above: Performed By: #### M G, BNP, CMP #### [facility] [address] [place] [address] Dr. Celina Venegas pH (Bld) 7.336 [pH] Critically low 7.350-7.450 [facility] Comment on above: Performed By: #### M G, BNP, CMP #### [facility] [address] [place] [address] Dr. Celina Venegas CBC AUTO DIFFon 10-07-2022 BASO # 0.0 103/ul Normal 0.0-0.1 [facility] Comment on above: Performed By: #### C BC #### [facility] [address] [place] [address] Dr. Celina Venegas Basophils/100 WBC (Bld) 0.0 % Critically low 0.2-2.0 [facility] Comment on above: Performed By: #### C BC #### [facility] [address] [place] [address] Dr. Celina Venegas EO # 0.0 103/ul Normal 0.0-0.7 [facility] Comment on above: Performed By: #### C BC #### [facility] [address] [place] [address] Dr. Celina Venegas Eosinophils/100 WBC (Bld) 0.0 % Critically low 0.9-7.0 [facility] Comment on above: Performed By: #### C BC #### [facility] [address] [place] [address] Dr. Celina Venegas Erythrocyte distribution width (RBC) [Ratio] 14.6 % Normal 11.0-15.0 [facility] Comment on above: Performed By: #### C BC #### [facility] [address] [place] [address] Dr. Celina Venegas Hematocrit (Bld) [Volume fraction] 31.7 % Critically low 36.0-48.0 [facility] Comment on above: Performed By: #### C BC #### [facility] [address] [place] [address] Dr. Celina Venegas Hemoglobin (Bld) [Mass/Vol] 9.5 g/dL Critically low 12.0-16.0 [facility] Comment on above: Performed By: #### C BC #### [facility] [address] [place] [address] Dr. Celina Venegas IG # 0.04 10e3/ul Critically high 0.00-0.03 [facility] Comment on above: Performed By: #### C BC #### [facility] [address] [place] [address] Dr. Celina Venegas IG % 0.5 % Normal 0.0-0.5 [facility] Comment on above: Performed By: #### C BC #### [facility] [address] [place] [address] Dr. Celina Venegas LYMPH # 0.8 103/ul Critically low 1.2-3.8 [facility] Comment on above: Performed By: #### C BC #### [facility] [address] [place] [address] Dr. Celina Venegas Lymphocytes/100 WBC (Bld) 10.1 % Critically low 20.5-60.0 [facility] Comment on above: Performed By: #### C BC #### [facility] [address] [place] [address] Dr. Celina Venegas MANUAL DIFF REQ NO Normal [facility] Comment on above: Performed By: #### C BC #### [facility] [address] [place] [address] Dr. Celina Venegas MCH (RBC) [Entitic mass] 24.2 pg Critically low 26.7-34.0 [facility] Comment on above: Performed By: #### C BC #### [facility] [address] [place] [address] Dr. Celina Venegas MCHC (RBC) [Mass/Vol] 30.0 g/dL Normal 29.9-35.2 [facility] Comment on above: Performed By: #### C BC #### [facility] [address] [place] [address] Dr. Celina Venegas MCV (RBC) [Entitic vol] 80.7 fL Critically low 81.0-99. 0 [facility] Comment on above: Performed By: #### C BC #### [facility] [address] [place] [address] Dr. Celina Venegas MONO # 0.1 103/ul Critically low 0.3-0.8 [facility] Comment on above: Performed By: #### C BC #### [facility] [address] [place] [address] Dr. Celina Venegas Monocytes/100 WBC (Bld) 1.4 % Critically low 1.7-12.0 [facility] Comment on above: Performed By: #### C BC #### [facility] [address] [place] [address] Dr. Celina Venegas NEUT # 6.8 103/ul Critically high 1.4-6.5 [facility] Comment on above: Performed By: #### C BC #### [facility] [address] [place] [address] Dr. Celina Venegas Neutrophils/100 WBC (Bld) 88.0 % Critically high 43.0-75.0 [facility] Comment on above: Performed By: #### C BC #### [facility] [address] [place] [address] Dr. Celina Venegas Platelet mean volume (Bld) [Entitic vol] 10.5 fL Normal 9.5-13.5 [facility] Comment on above: Performed By: #### C BC #### [facility] [address] [place] [address] Dr. Celina Venegas PLT 194 103/ul Normal 150-450 [facility] Comment on above: Performed By: #### C BC #### [facility] [address] [place] [address] Dr. Celina Venegas RBC 3.93 106/ul Critically low 4.20-5.40 [facility] Comment on above: Performed By: #### C BC #### [facility] [address] [place] [address] Dr. Celina Venegas WBC 7.8 103/ul Normal 4.0-11.0 [facility] Comment on above: Performed By: #### C BC #### [facility] [address] [place] [address] Dr. Celina Venegas CULTURE BLOODon 10-07-2022 Microscopic examination of blood, culture Culture Observations: NO GROWTH AT 5 DAYS. Normal [facility] Comment on above: Performed By: #### H STROPN #### [facility] [address] [place] [address] Dr. Celina Venegas Microscopic examination of blood, culture Culture Observations: NO GROWTH AT 5 DAYS. Normal [facility] Comment on above: Performed By: #### H STROPN #### [facility] [address] [address] [address] Celina Venegas ECHOCARDIO M/2D COMPLETEon 0 10-07-2022 ECHOCARDIO M/2D COMPLETE Patient: SHAHIDA MEJIA Exam Date: 10/07/2022 : 1970 Gender:F Ordering : SHAIKH Juliana SKELTON . Admission #: [id number] Family : DIVYA ACOSTA LENS GRINDER-C Order #: [id number] CLICK HERE TO VIEW EXAM ECHOCARDIOGRAM REPORT [...] Ramirez M.D. on 10/07/2022 at 17:48 Normal [facility] FREE T3on 10-07-2022 FREE T3 3.12 pg/mlL Normal 2.18-3.98 [facility] Comment on above: Performed By: #### B [id number] #### [facility] [address] [place] [address] Dr. Celina Venegas FREE T4on 10-07-2022 Free T4 [Mass/Vol] 1.63 ng/dL Critically high 0.76-1.46 [facility] Comment on above: Performed By: #### H STROPN #### [facility] [address] [place] [address] Dr. Celina Venegas GLYCOHEMOGLOBIN A1Con 2022 ADA RECOMMENDATION SEE BELOW Normal [facility] Comment on above: Result Comment: ADA RECOMMENDED LIMIT 4.0 - 6.0 ADA THERAPEUTIC TARGET < 7.0 ACTION SUGGESTED > 7.0 Performed By: #### B [id number] #### [facility] [address] [place] [address] Dr. Celina Venegas Glucose [Mass/Vol] 117 mg/dL Normal [facility] Comment on above: Performed By: #### B [id number] #### [facility] [address] [place] [address] Dr. Celina Venegas HbA1c (Bld) [Mass fraction] 5.7 % Normal 4.5-6.2 [facility] Comment on above: Performed By: #### B [id number] #### [facility] [address] [place] [address] Dr. Celina Venegas MAGNESIUMon 10-07-2022 Magnesium [Mass/Vol] 1.5 mg/dL Critically low 1.8-2.4 [facility] Comment on above: Performed By: #### M G, BNP, CMP #### [facility] [address] [place] [address] Dr. Celina Venegas POINT OF CARE GLUCOSEon 09-13 Glucose [Mass/Vol] 247 mg/dL Critically high 74-106 [facility] Comment on above: Performed By: #### M G, BNP, CMP #### [facility] [address] [place] [address] Dr. Celina Venegas Glucose [Mass/Vol] 152 mg/dL Critically high 74-106 [facility] Comment on above: Performed By: #### B [id number] #### [facility] [address] [place] [address] Dr. Celina Venegas PROF 14(COMP METB)on 023 Albumin [Mass/Vol] 2.5 g/dL Critically low 3.4-5.0 [facility] Comment on above: Performed By: #### M G, BNP, CMP #### [facility] [address] [place] [address] Dr. Celina Venegas Albumin/Globulin [Mass ratio] 0.6 {ratio} Normal [facility] Comment on above: Performed By: #### M G, BNP, CMP #### [facility] [address] [place] [address] Dr. Celina Venegas ALP [Catalytic activity/Vol] 167 U/L Critically high 46-116 [facility] Comment on above: Performed By: #### M G, BNP, CMP #### [facility] [address] [place] [address] Dr. Celina Venegas ALT [Catalytic activity/Vol] 22 U/L Normal 14-59 [facility] Comment on above: Performed By: #### M G, BNP, CMP #### [facility] [address] [place] [address] Dr. Celina Venegas Anion gap [Moles/Vol] 15.1 mmol/L Normal [facility] Comment on above: Performed By: #### M G, BNP, CMP #### [facility] [address] [place] [address] Dr. Celina Venegas AST [Catalytic activity/Vol] 26 U/L Normal 15-37 [facility] Comment on above: Performed By: #### M G, BNP, CMP #### [facility] [address] [place] [address] Dr. Celina Venegas Bilirubin [Mass/Vol] 0.2 mg/dL Normal 0.2-1.0 [facility] Comment on above: Performed By: #### M G, BNP, CMP #### [facility] [address] [place] [address] Dr. Celina Venegas Calcium [Mass/Vol] 8.2 mg/dL Critically low 8.5-10.1 [facility] Comment on above: Performed By: #### M G, BNP, CMP #### [facility] [address] [place] [address] Dr. Celina Venegas Chloride [Moles/Vol] 107 mmol/L Normal 98-107 [facility] Comment on above: Performed By: #### M G, BNP, CMP #### [facility] [address] [place] [address] Dr. Celina Venegas CO2 [Moles/Vol] 23.8 mmol/L Normal 21.0-32.0 [facility] Comment on above: Performed By: #### M G, BNP, CMP #### [facility] [address] [place] [address] Dr. Celina Venegas Creatinine [Mass/Vol] 1.09 mg/dL Critically high 0.55-1.02 [facility] Comment on above: Performed By: #### M G, BNP, CMP #### [facility] [address] [place] [address] Dr. Celina Venegas EGFR-AF BELARUSIAN >60 Normal >=60 [facility] Comment on above: Performed By: #### M G, BNP, CMP #### [facility] [address] [place] [address] Dr. Celina Venegas EGFR-NON AF BELARUSIAN 53 mL/min/1.73m2 Critically low >=60 [facility] Comment on above: Performed By: #### M G, BNP, CMP #### [facility] [address] [address] [address] Celina Venegas Globulin (S) [Mass/Vol] 3.9 g/dL Normal [facility] Comment on above: Performed By: #### M G, BNP, CMP #### [facility] [address] [address] [address] Celina Venegas Glucose [Mass/Vol] 244 mg/dL Critically high 74-106 [facility] Comment on above: Performed By: #### M G, BNP, CMP #### [facility] [address] [place] [address] Dr. Celina Venegas Potassium [Moles/Vol] 3.9 mmol/L Normal 3.5-5.1 [facility] Comment on above: Performed By: #### M G, BNP, CMP #### [facility] [address] [place] [address] Dr. Celina Venegas Protein [Mass/Vol] 6.4 g/dL Normal 6.4-8.2 [facility] Comment on above: Performed By: #### M G, BNP, CMP #### [facility] [address] [place] [address] Dr. Celina Venegas Sodium [Moles/Vol] 142 mmol/L Normal 136-145 [facility] Comment on above: Performed By: #### M G, BNP, CMP #### [facility] [address] [place] [address] Dr. Celina Venegas Urea nitrogen [Mass/Vol] 18.0 mg/dL Normal 7.0-18.0 [facility] Comment on above: Performed By: #### M G, BNP, CMP #### [facility] [address] [place] [address] Dr. Celina Venegas Urea nitrogen/Creatinine [Mass ratio] 16.5 mg/mg Normal [facility] Comment on above: Performed By: #### M G, BNP, CMP #### [facility] [address] [place] [address] Dr. Celina Venegas PROTIMEon 10-07-2022 INR Coag (PPP) [Relative time] 1.00 {INR} Normal [facility] Comment on above: Performed By: #### B [id number] #### [facility] [address] [place] [address] Dr. Celina Venegas INR GUIDELINES SEE BELOW Normal [facility] Comment on above: Result Comment: CAESAR RED INR: 2.0 - 3.0 CONDITIONS NOT LISTED BELOW 2.5 - 3.5 FOR PROSTHETIC HEART VALVE REPLACEMENT 2.5 - 3.5 RECURRENT THROMBOSIS Performed By: #### B LDCX2 #### [facility] [address] [place] [address] Dr. Celina Venegas PT Coag (PPP) [Time] 10.6 s Normal 9.0-11.6 [facility] Comment on above: Performed By: #### B LDCX2 #### [facility] [address] [place] [address] Dr. Celina Venegas INR Coag (PPP) [Relative time] 1.01 {INR} Normal [facility] Comment on above: Performed By: #### M G, BNP, CMP #### [facility] [address] [place] [address] Dr. Celina Venegas INR GUIDELINES SEE BELOW Normal [facility] Comment on above: Result Comment: CAESAR RED INR: 2.0 - 3.0 CONDITIONS NOT LISTED BELOW 2.5 - 3.5 FOR PROSTHETIC HEART VALVE REPLACEMENT 2.5 - 3.5 RECURRENT THROMBOSIS Performed By: #### M G, BNP, CMP #### [facility] [address] [place] [address] Dr. Celina Venegas PT Coag (PPP) [Time] 10.7 s Normal 9.0-11.6 [facility] Comment on above: Performed By: #### M G, BNP, CMP #### [facility] [address] [place] [address] Dr. Celina Venegas PTTon 10-07-2022 aPTT Coag (Bld) [Time] 20.4 s Critically low 22.3-36.2 [facility] Comment on above: Performed By: #### B LDCX2 #### [facility] [address] [place] [address] Dr. Celina Venegas aPTT Coag (Bld) [Time] 25.2 s Normal 22.3-36.2 [facility] Comment on above: Performed By: #### M G, BNP, CMP #### [facility] [address] [place] [address] Dr. Celina Venegas T4on 10-07-2022 T4 [Mass/Vol] 10.20 ug/dL Normal 4.80-13.90 [facility] Comment on above: Performed By: #### B [id number] #### [facility] [address] [address] [address] Celina Venegas TROPONIN, HIGH SENSITIVITYon 10-07-2022 HSTROP 279.6 pg/mL Critically high 4.0-51.[address] [facility] Comment on above: Result Comment: CUT- OFF POINTS HAVE BEEN ESTABLISHED BASED ON THE FOURTH UNIVERSAL DEFINITIONS OF MYOCARDIAL INFARCTION. THE UPPER REFERENCE LIMIT (URL) OF TROPONIN, DEFINED THE 99TH PERCENTILE OF cTnI DISTRIBUTION IN A REFERENCE POPULATION, HAS BEEN CONFIRMED THE DECISION THRESHOLD FOR SC DIAGNOSIS. Performed By: #### M G, BNP, CMP #### [facility] [address] [place] [address] Dr. Celina Venegas HSTROP 336.1 pg/mL Critically high 4.0-51.[address] [facility] Comment on above: Result Comment: CUT- OFF POINTS HAVE BEEN ESTABLISHED BASED ON THE FOURTH UNIVERSAL DEFINITIONS OF MYOCARDIAL INFARCTION. THE UPPER REFERENCE LIMIT (URL) OF TROPONIN, DEFINED THE 99TH PERCENTILE OF cTnI DISTRIBUTION IN A REFERENCE POPULATION, HAS BEEN CONFIRMED THE DECISION THRESHOLD FOR SC DIAGNOSIS. Performed By: #### M G, BNP, CMP #### [facility] [address] [place] [address] Dr. Ceilna Venegas TSHon 10-07-2022 TSH Qn m[IU]/L Critically low 0.358-3.740 [facility] Comment on above: Performed By: #### M G, BNP, CMP #### [facility] [address] [place] [address] Dr. Celina Venegas XR CHEST 1 Von 10-07-2022 XR CHEST 1 V EXAM: XR CHEST 1 V HISTORY: SHORTNESS OF BREATH COMPARISON: 10/07/2022 TECHNIQUE: AP view of the chest. Findings/impression: Decreasing bibasilar airspace disease. Stable cardiac silhouette. No pneumothorax. Trace bilateral pleural effusions. Stable ET and NG tubes. Electronically authenticated by: LOUISE POLLOCK Date: 2022-10-07 09:31 Normal [facility] XR CHEST 1 V EXAM: XR [...] EMILE DOWNS Date: 2022-10-07 05:44 Normal [facility] XR KUB 1 VIEWon 10-07-2022 XR [...] Juaquin COLEMAN Date: 2022-10-06 23:40 Normal [facility] ACETAMINOPHENon 10-06-2022 Acetaminophen [Mass/Vol] ug/mL Critically low 10.0-30.0 [facility] Comment on above: Performed By: #### H STROPN #### [facility] [address] [address] [address] Celina Venegas ACETONE SERUMon 10-06-2022 ACETONE Negative Normal NEGATIVE [facility] Comment on above: Performed By: #### B [id number] #### [facility] [address] [place] [address] Dr. Celina Venegas [facility] 02 MODE VENTILATOR Normal [facility] Comment on above: Performed By: #### M G, BNP, CMP #### [facility] [address] [place] [address] Dr. Celina Venegas Performed By: #### A BG #### [facility] [address] [place] [address] Dr. Celina Venegas ALLENS TEST Positive [facility] Comment on above: Performed By: #### M G, BNP, CMP #### [facility] [address] [place] [address] Dr. Celina Venegas Performed By: #### A BG #### [facility] [address] [place] [address] Dr. Celina Venegas Base excess Calc (Bld) [Moles/Vol] -8.9000 mmol/L Critically low -2.0-2.0 [facility] Comment on above: Performed By: #### A BG #### [facility] [address] [place] [address] Dr. Celina Venegas BIPAP PRESSURE [facility] Comment on above: Performed By: #### M G, BNP, CMP #### [facility] [address] [place] [address] Dr. Celina Venegas Performed By: #### A BG #### [facility] [address] [place] [address] Dr. Celina Venegas CPAP [facility] Comment on above: Performed By: #### M G, BNP, CMP #### [facility] [address] [place] [address] Dr. Celina Venegas Performed By: #### A BG #### [facility] [address] [place] [address] Dr. Celina Venegas FIO2 40.00 % [facility] Comment on above: Performed By: #### M G, BNP, CMP #### [facility] [address] [place] [address] Dr. Celina Venegas Performed By: #### A BG #### [facility] [address] [place] [address] Dr. Celina Venegas HCO3 (Bld) [Moles/Vol] 19.3 mmol/L Critically low 22.0-26. 0 [facility] Comment on above: Performed By: #### A BG #### [facility] [address] [place] [address] Dr. Celina Venegas LPM [facility] Comment on above: Performed By: #### M G, BNP, CMP #### [facility] [address] [place] [address] Dr. Celina Venegas Performed By: #### A BG #### [facility] [address] [place] [address] Dr. Celina Venegas MINUTE VOLUME Normal [facility] Comment on above: Performed By: #### M G, BNP, CMP #### [facility] [address] [place] [address] Dr. Celina Venegas Performed By: #### A BG #### [facility] [address] [place] [address] Dr. Celina Venegas Oxygen (Bld) [Partial pressure] 97.4 mm[Hg] Normal 80.0-100.0 [facility] Comment on above: Performed By: #### A BG #### [facility] [address] [place] [address] Dr. Celina Venegas Oxygen saturation in Blood 96.1 % Normal 95.0-100.0 [facility] Comment on above: Performed By: #### A BG #### [facility] [address] [place] [address] Dr. Celina Venegas PCO2 50.2 mmHg Critically high 35.0-45.0 [facility] Comment on above: Performed By: #### A BG #### [facility] [address] [place] [address] Dr. Celina Venegas PEEP 5 [facility] Comment on above: Performed By: #### M G, BNP, CMP #### [facility] [address] [place] [address] Dr. Celina Venegas Performed By: #### A BG #### [facility] [address] [place] [address] Dr. Celina Venegas pH (Bld) 7.193 [pH] Critically low 7.350-7.450 [facility] Comment on above: Performed By: #### A BG #### [facility] [address] [address] [address] Celina Venegas [facility] Comment on above: Performed By: #### M G, BNP, CMP #### [facility] [address] [address] [address] Celina Venegas Performed By: #### A BG #### [facility] [address] [place] [address] Dr. Celina Venegas [facility] Comment on above: Performed By: #### M G, BNP, CMP #### [facility] [address] [place] [address] Dr. Celina Venegas Performed By: #### A BG #### [facility] [address] [place] [address] Dr. Celina Venegas PUNCTURE SITE RR [facility] Comment on above: Performed By: #### M G, BNP, CMP #### [facility] [address] [place] [address] Dr. Celina Venegas Performed By: #### A BG #### [facility] [address] [place] [address] Dr. Celina Venegas RATE 16 bpm [facility] Comment on above: Performed By: #### M G, BNP, CMP #### [facility] [address] [place] [address] Dr. Celina Venegas Performed By: #### A BG #### [facility] [address] [place] [address] Dr. Celina Venegas VENT MODE A/C [facility] Comment on above: Performed By: #### M G, BNP, CMP #### [facility] [address] [place] [address] Dr. Celina Venegas Performed By: #### A BG #### [facility] [address] [place] [address] Dr. Celina Venegas VT 400 ML Normal [facility] Comment on above: Performed By: #### M G, BNP, CMP #### [facility] [address] [place] [address] Dr. Celina Venegas Performed By: #### A BG #### [facility] [address] [place] [address] Dr. Celina Venegas BNPon 10-06-2022 Natriuretic peptide B (Bld) [Mass/Vol] 3590.0 pg/mL Critically high <=900.0 [facility] Comment on above: Performed By: #### C BC #### [facility] [address] [place] [address] Dr. Celina Venegas CBC AUTO DIFFon 10-06-2022 BASO # 0.1 103/ul Normal 0.0-0.1 [facility] Comment on above: Performed By: #### P REG #### [facility] [address] [place] [address] Dr. Celina Venegas Basophils/100 WBC (Bld) 0.4 % Normal 0.2-2.0 [facility] Comment on above: Performed By: #### P REG #### [facility] [address] [place] [address] Dr. Celina Venegas EO # 0.2 103/ul Normal 0.0-0.7 [facility] Comment on above: Performed By: #### P REG #### [facility] [address] [place] [address] Dr. Celina Venegas Eosinophils/100 WBC (Bld) 1.1 % Normal 0.9-7.0 [facility] Comment on above: Performed By: #### P REG #### [facility] [address] [place] [address] Dr. Celina Venegas Erythrocyte distribution width (RBC) [Ratio] 14.5 % Normal 11.0-15.0 [facility] Comment on above: Performed By: #### P REG #### [facility] [address] [place] [address] Dr. Celina Venegas Hematocrit (Bld) [Volume fraction] 38.1 % Normal 36.0-48.0 [facility] Comment on above: Performed By: #### P REG #### [facility] [address] [place] [address] Dr. Celina Venegas Hemoglobin (Bld) [Mass/Vol] 11.3 g/dL Critically low 12.0-16.0 [facility] Comment on above: Performed By: #### P REG #### [facility] [address] [address] [address] Celina Venegas IG # 0.21 10e3/ul Critically high 0.00-0.03 [facility] [place] Comment on above: Performed By: #### P REG #### [facility] [address] [place] [address] Dr. Celina Venegas IG % 1.5 % Critically high 0.0-0.5 [facility] Comment on above: Performed By: #### P REG #### [facility] [address] [place] [address] Dr. Celina Venegas LYMPH # 3.3 103/ul Normal 1.2-3.8 [facility] Comment on above: Performed By: #### P REG #### [facility] [address] [place] [address] Dr. Celina Venegas Lymphocytes/100 WBC (Bld) 23.8 % Normal 20.5-60.0 [facility] Comment on above: Performed By: #### P REG #### [facility] [address] [place] [address] Dr. Celina Venegas MANUAL DIFF REQ NO Normal [facility] Comment on above: Performed By: #### P REG #### [facility] [address] [place] [address] Dr. Celina Venegas MCH (RBC) [Entitic mass] 24.9 pg Critically low 26.7-34.0 [facility] Comment on above: Performed By: #### P REG #### [facility] [address] [place] [address] Dr. Celina Venegas MCHC (RBC) [Mass/Vol] 29.7 g/dL Critically low 29.9-35.2 [facility] Comment on above: Performed By: #### P REG #### [facility] [address] [place] [address] Dr. Celina Venegas MCV (RBC) [Entitic vol] 83.9 fL Normal 81.0-99.0 [facility] Comment on above: Performed By: #### P REG #### [facility] [address] [place] [address] Dr. Celina Venegas MONO # 0.5 103/ul Normal 0.3-0.8 [facility] Comment on above: Performed By: #### P REG #### [facility] [address] [place] [address] Dr. Celina Venegas Monocytes/100 WBC (Bld) 3.8 % Normal 1.7-12.0 [facility] Comment on above: Performed By: #### P REG #### [facility] [address] [place] [address] Dr. Celina Venegas NEUT # 9.6 103/ul Critically high 1.4-6.5 [facility] Comment on above: Performed By: #### P REG #### [facility] [address] [place] [address] Dr. Celina Venegas Neutrophils/100 WBC (Bld) 69.4 % Normal 43.0-75.0 [facility] Comment on above: Performed By: #### P REG #### [facility] [address] [address] [address] Celina Venegas Platelet mean volume (Bld) [Entitic vol] 10.4 fL Normal 9.5-13.5 [facility] Comment on above: Performed By: #### P REG #### [facility] [address] [place] [address] Dr. Celina Venegas PLT 409 103/ul Normal 150-450 [facility] Comment on above: Performed By: #### P REG #### [facility] [address] [place] [address] Dr. Celina Venegas RBC 4.54 106/ul Normal 4.20-5.40 [facility] Comment on above: Performed By: #### P REG #### [facility] [address] [place], [place] [address] Dr. Celina Venegas WBC 13.8 103/ul Critically high 4.0-11.[address] [facility] Comment on above: Performed By: #### P REG #### [facility] [address] [place], [place] [address] ABD/PELV W CONon [...] Ju RIVERA Date: 2022-10-06 21:52 Normal [facility] CT ABD/PELVIS WO CONon 10-06 CT [...] LISSA ARTEAGA Date: 2022-10-06 21:51 Normal [facility] CULTURE BLOODon 10-06-2022 Microscopic examination of blood, culture Culture Observations: NO GROWTH AT 5 DAYS. Normal [facility] Comment on above: Performed By: #### H STROPN #### [facility] [address] [place] [address] Dr. Celina Venegas Performed By: #### B [id number] #### [facility] [address] [place] [address] Dr. Celina Venegas Covid-19 PCR ([facility])on 09-13 SARS-CoV-2 (COVID-19) RNA ELVA+probe Ql (Unsp spec) Not detected Normal NOT DETECTED [facility] Comment on above: Performed By: #### P REG #### [facility] [address] [place] [address] Dr. Celina Venegas DRUG SCREEN RAPID (URINE)on 10-06-2022 AMP Negative Normal NEGATIVE [facility] Comment on above: Performed By: #### M G, BNP, CMP #### [facility] [address] [place] [address] Dr. Celina Venegas BAR Negative Normal NEGATIVE [facility] Comment on above: Performed By: #### M G, BNP, CMP #### [facility] [address] [place] [address] Dr. Celina Venegas BUP Negative Normal NEGATIVE [facility] Comment on above: Performed By: #### M G, BNP, CMP #### [facility] [address] [place] [address] Dr. Celina Venegas BZO Negative Normal NEGATIVE [facility] Comment on above: Performed By: #### M G, BNP, CMP #### [facility] [address] [place] [address] Dr. Celina Venegas BRIANDA Negative Normal NEGATIVE [facility] Comment on above: Performed By: #### M G, BNP, CMP #### [facility] [address] [place] [address] Dr. Celina Venegas CUT-OFFS SEE BELOW Normal [facility] Comment on above: Result Comment: AMP [...] By: #### M G, BNP, CMP #### [facility] [address] [place] [address] Dr. Celina Venegas DRUG CUT HEADER DRUG CLASS TEST SYSTEM CUT-OFF CONCENTRATIONS ARE FOLLOWS: Normal [facility] Comment on above: Performed By: #### M G, BNP, CMP #### [facility] [address] [place] [address] Dr. Celina Venegas mAMP Negative Normal NEGATIVE [facility] Comment on above: Performed By: #### M G, BNP, CMP #### [facility] [address] [place] [address] Dr. Celina Venegas MTD Negative Normal NEGATIVE [facility] Comment on above: Performed By: #### M G, BNP, CMP #### [facility] [address] [place] [address] Dr. Celina Venegas OPI Negative Normal NEGATIVE [facility] Comment on above: Performed By: #### M G, BNP, CMP #### [facility] [address] [place] [address] Dr. Celina Venegas OXY Negative Normal NEGATIVE [facility] Comment on above: Performed By: #### M G, BNP, CMP #### [facility] [address] [place] [address] Dr. Celina Venegas PCP Negative Normal NEGATIVE [facility] Comment on above: Performed By: #### M G, BNP, CMP #### [facility] [address] [place] [address] Dr. Celina Venegas PPX Negative Normal NEGATIVE [facility] Comment on above: Performed By: #### M G, BNP, CMP #### [facility] [address] [place] [address] Dr. Celina Venegas TCA Negative Normal NEGATIVE [facility] Comment on above: Performed By: #### M G, BNP, CMP #### [facility] [address] [place] [address] Dr. Celina Venegas THC Positive Abnormal NEGATIVE [facility] Comment on above: Performed By: #### M G, BNP, CMP #### [facility] [address] [place] [address] Dr. Celina Venegas ETHANOL (BLD ALC)on 10-07-19 ALC NOTE NOTE: 80 mg/dl is legal limit for a blood alcohol level Normal [facility] Comment on above: Performed By: #### B [id number] #### [facility] [address] [place] [address] Dr. Celina Venegas Ethanol [Mass/Vol] mg/dL Normal [facility] Comment on above: Performed By: #### B LDCX2 #### [facility] [address] [place] [address] Dr. Celina Venegas LACTATE/LACTIC ACIDon 2022 Lactate [Moles/Vol] 2.2 mmol/L Critically high 0.4-2.0 [facility] Comment on above: Performed By: #### B LDCX2 #### [facility] [address] [place] [address] Dr. Celina Venegas Lactate [Moles/Vol] 5.5 mmol/L Critically high 0.4-2.0 [facility] Comment on above: Performed By: #### M G, BNP, CMP #### [facility] [address] [place] [address] Dr. Celina Venegas LIVER PROFILEon 10-06-2022 Albumin [Mass/Vol] 2.8 g/dL Critically low 3.4-5.0 [facility] Comment on above: Performed By: #### M G, BNP, CMP #### [facility] [address] [place] [address] Dr. Celina Venegas Albumin/Globulin [Mass ratio] 0.6 {ratio} Normal [facility] Comment on above: Performed By: #### M G, BNP, CMP #### [facility] [address] [address] [address] Celina Venegas ALP [Catalytic activity/Vol] 218 U/L Critically high 46-116 [facility] Comment on above: Performed By: #### M G, BNP, CMP #### [facility] [address] [address] [address] Celina Venegas ALT [Catalytic activity/Vol] 22 U/L Normal 14-59 [facility] Comment on above: Performed By: #### M G, BNP, CMP #### [facility] [address] [place] [address] Dr. Celina Venegas AST [Catalytic activity/Vol] 27 U/L Normal 15-37 [facility] Comment on above: Performed By: #### M G, BNP, CMP #### [facility] [address] [place] [address] Dr. Celina Venegas BILI, CONJUGATED 0.1 mg/dL Normal 0.0-0.[address] [facility] Comment on above: Performed By: #### M G, BNP, CMP #### [facility] [address] [place] [address] Dr. Celina Venegas Bilirubin [Mass/Vol] 0.2 mg/dL Normal 0.2-1.0 [facility] Comment on above: Performed By: #### M G, BNP, CMP #### [facility] [address] [place] [address] Dr. Celina Venegas Globulin (S) [Mass/Vol] 4.6 g/dL Normal [facility] Comment on above: Performed By: #### M G, BNP, CMP #### [facility] [address] [place] [address] Dr. Celina Venegas Protein [Mass/Vol] 7.4 g/dL Normal 6.4-8.2 [facility] Comment on above: Performed By: #### M G, BNP, CMP #### [facility] [address] [place] [address] Dr. Celina Venegas PROF CHEM 8 (BAS METB)on Anion gap [Moles/Vol] 20.6 mmol/L Normal [facility] Comment on above: Performed By: #### C BC #### [facility] [address] [address] [address] Celina Venegas Calcium [Mass/Vol] 8.4 mg/dL Critically low 8.5-10.1 [facility] Comment on above: Performed By: #### C BC #### [facility] [address] [address] [address] Celina Venegas Chloride [Moles/Vol] 107 mmol/L Normal 98-107 [facility] Comment on above: Performed By: #### C BC #### [facility] [address] [address] [address] Celina Venegas CO2 [Moles/Vol] 19.5 mmol/L Critically low 21.0-32.0 [facility] Comment on above: Performed By: #### C BC #### [facility] [address] [address] [address] Celina Venegas Creatinine [Mass/Vol] 1.39 mg/dL Critically high 0.55-1.02 [facility] Comment on above: Performed By: #### C BC #### [facility] [address] [address] [address] Celina Venegas EGFR-AF BELARUSIAN 48 mL/min/1.73m2 Critically low >=60 [facility] Comment on above: Performed By: #### C BC #### [facility] [address] [address] [address] Celina Venegas EGFR-NON AF BELARUSIAN 40 mL/min/1.73m2 Critically low >=60 [facility] Comment on above: Performed By: #### C BC #### [facility] [address] [address] [address] Celina Venegas Glucose [Mass/Vol] 322 mg/dL Critically high 74-106 [facility] Comment on above: Performed By: #### C BC #### [facility] [address] [address] [address] Celina Venegas Potassium [Moles/Vol] 3.1 mmol/L Critically low 3.5-5.1 [facility] Comment on above: Performed By: #### C BC #### [facility] [address] [address] [address] Celina Venegas Sodium [Moles/Vol] 144 mmol/L Normal 136-145 [facility] Comment on above: Performed By: #### C BC #### [facility] [address] [address] [address] Celina Venegas Urea nitrogen [Mass/Vol] 22.0 mg/dL Critically high 7.0-18.0 [facility] Comment on above: Performed By: #### C BC #### [facility] [address] [place] [address] Dr. Celina Venegas Urea nitrogen/Creatinine [Mass ratio] 15.8 mg/mg Normal [facility] Comment on above: Performed By: #### C BC #### [facility] [address] [address] [address] Celina Venegas SALICYLATEon 10-06-2022 SALICYLATE <2.8 Normal <=19.9 [facility] Comment on above: Performed By: #### H STROPN #### [facility] [address] [address] [address] Celina Venegas SYMPTOMATIC COVID-19 ANTIGEN on 10-06-2022 EUA Statement SEE BELOW Normal [facility] Comment on above: Result Comment: This [...] By: #### M G, BNP, CMP #### [facility] [address] [address] [address] Celina Venegas SARS-CoV-2 (COVID-19) RNA ELVA+probe Ql (Unsp spec) Negative Normal NEGATIVE [facility] Comment on above: Performed By: #### M G, BNP, CMP #### [facility] [address] [address] [address] Celina Venegas TROPONIN, HIGH SENSITIVITYon 10-06-2022 HSTROP 288.7 pg/mL Critically high 4.0-51.3 [facility] Comment on above: Result Comment: CUT- OFF POINTS HAVE BEEN ESTABLISHED BASED ON THE FOURTH UNIVERSAL DEFINITIONS OF MYOCARDIAL INFARCTION. THE UPPER REFERENCE LIMIT (URL) OF TROPONIN, DEFINED THE 99TH PERCENTILE OF cTnI DISTRIBUTION IN A REFERENCE POPULATION, HAS BEEN CONFIRMED THE DECISION THRESHOLD FOR SC DIAGNOSIS. Performed By: #### H STROPN #### [facility] [address] [place] [address] Dr. Celina Venegas HSTROP 109.5 pg/mL Critically high 4.0-51.3 [facility] Comment on above: Result Comment: CUT- OFF POINTS HAVE BEEN ESTABLISHED BASED ON THE FOURTH UNIVERSAL DEFINITIONS OF MYOCARDIAL INFARCTION. THE UPPER REFERENCE LIMIT (URL) OF TROPONIN, DEFINED THE 99TH PERCENTILE OF cTnI DISTRIBUTION IN A REFERENCE POPULATION, HAS BEEN CONFIRMED THE DECISION THRESHOLD FOR SC DIAGNOSIS. Performed By: #### C BC #### [facility] [address] [place] [address] Dr. Celina Venegas XR CHEST 1 Von [...] by: GABRIELLA TESFAYE Date: 2022-10-06 18:46 Normal [facility] XR CHEST 1 V EXAM: XR [...] JUAN LUIS LOVE Date: 2022-10-06 18:22 Normal [facility] GGTon 09-22-2022 Gamma glutamyl transferase [Catalytic activity/Vol] 80 U/L Critically high 8-55 [facility] Comment on above: Performed By: #### H STROPN #### [facility] [address] [place] [address] Dr. Celina Venegas LIPID PROFILEon 09-22-2022 CHOL-HDL RATIO NORM SEE BELOW Normal [facility] Comment on above: Result Comment: 3.3 - 4.4 LOW RISK 4.4 - 7.1 AVERAGE RISK 7.1 - 11.0 MODERATE RISK >11.0 HIGH RISK Performed By: #### H STROPN #### [facility] [address] [place] [address] Dr. Celina Venegas Cholesterol [Mass/Vol] 162 mg/dL Normal <=200 [facility] Comment on above: Performed By: #### H STROPN #### [facility] [address] [address] [address] Celina Venegas Cholesterol in HDL [Mass/Vol] 41 mg/dL Normal 40-60 [facility] Comment on above: Performed By: #### H STROPN #### [facility] [address] [address] [address] Celina Venegas Cholesterol in LDL [Mass/Vol] 90.8 mg/dL Normal [facility] Comment on above: Performed By: #### H STROPN #### [facility] [address] [address] [address] Celina Venegas Cholesterol.total/Kelly sterol in HDL [Mass ratio] 4.0 {ratio} Normal [facility] Comment on above: Performed By: #### H STROPN #### [facility] [address] [address] [address] Celina Venegas HDL NORMAL > or = 60 mg/dl - LO W CARDIOVASCULAR RISK <40 mg/dl - HIGH CARDIOVASCULAR RISK Normal [facility] Comment on above: Performed By: #### H STROPN #### [facility] [address] [address] [address] Celina Venegas LDL CALC NORMAL SEE BELOW Normal [facility] Comment on above: Result Comment: <100 mg/dl OPTIMAL 100 - 129 mg/dl NEAR OR ABOVE OPTIMAL 130 - 159 mg/dl BORDERLINE HIGH 160 - 189 mg/dl HIGH >190 mg/dl VERY HIGH Performed By: #### H STROPN #### [facility] [address] [address] [address] Celina Venegas Triglyceride [Mass/Vol] 151 mg/dL Critically high <=150 [facility] Comment on above: Performed By: #### H STROPN #### [facility] [address] [address] [address] Celina Venegas VLDL CALC 30.2 mg/dL Normal [facility] Comment on above: Performed By: #### H STROPN #### [facility] [address] [address] [address] Celina Venegas XR CHEST 2 Von [...] by: THADDEUS LO Date: 2022-09-22 10:58 Normal [facility] STOOL CULTUREon 09-11-2022 Campylobacter Culture Final report Normal [facility] Comment on above: Performed By: #### M G, BNP, CMP #### [facility] [address] [address] [address] Celina Venegas E coli Shiga Toxin EIA Negative Normal Negative [facility] Comment on above: Performed By: #### M G, BNP, CMP #### [facility] [address] [address] [address] Celina Venegas Result 1 Comment Normal [facility] Comment on above: Result Comment: No S almonella or Shigella recovered. Performed By: #### M G, BNP, CMP #### [facility] [address] [place] [address] Dr. Celina Venegas Result Comment: No C ampylobacter species isolated. Salmonella/Shigella Screen Final report Normal [facility] Comment on above: Performed By: #### M G, BNP, CMP #### [facility] [address] [place] [address] Dr. Celina Venegas CBC AUTO DIFFon 09-08-2022 BASO # 0.0 103/ul Normal 0.0-0.1 [facility] Comment on above: Performed By: #### M G, BNP, CMP #### [facility] [address] [place] [address] Dr. Celina Venegas Basophils/100 WBC (Bld) 0.1 % Critically low 0.2-2.0 [facility] Comment on above: Performed By: #### M G, BNP, CMP #### [facility] [address] [place] [address] Dr. Celina Venegas EO # 0.3 103/ul Normal 0.0-0.7 [facility] Comment on above: Performed By: #### M G, BNP, CMP #### [facility] [address] [place] [address] Dr. Celina Venegas Eosinophils/100 WBC (Bld) 3.6 % Normal 0.9-7.0 [facility] Comment on above: Performed By: #### M G, BNP, CMP #### [facility] [address] [place] [address] Dr. Celina Venegas Erythrocyte distribution width (RBC) [Ratio] 13.9 % Normal 11.0-15.0 [facility] Comment on above: Performed By: #### M G, BNP, CMP #### [facility] [address] [place] [address] Dr. Celina Venegas Hematocrit (Bld) [Volume fraction] 28.9 % Critically low 36.0-48.0 [facility] Comment on above: Performed By: #### M G, BNP, CMP #### [facility] [address] [place] [address] Dr. Celina Venegas Hemoglobin (Bld) [Mass/Vol] 8.8 g/dL Critically low 12.0-16.0 [facility] Comment on above: Performed By: #### M G, BNP, CMP #### [facility] [address] [place] [address] Dr. Celina Venegas IG # 0.03 10e3/ul Normal 0.00-0.03 [facility] Comment on above: Performed By: #### M G, BNP, CMP #### [facility] [address] [place] [address] Dr. Celina Venegas IG % 0.4 % Normal 0.0-0.5 [facility] Comment on above: Performed By: #### M G, BNP, CMP #### [facility] [address] [place] [address] Dr. Celina Venegas LYMPH # 0.8 103/ul Critically low 1.2-3.8 [facility] Comment on above: Performed By: #### M G, BNP, CMP #### [facility] [address] [place] [address] Dr. Celina Venegas Lymphocytes/100 WBC (Bld) 10.5 % Critically low 20.5-60.0 [facility] Comment on above: Performed By: #### M G, BNP, CMP #### [facility] [address] [place] [address] Dr. Celina Venegas MANUAL DIFF REQ NO Normal [facility] Comment on above: Performed By: #### M G, BNP, CMP #### [facility] [address] [place] [address] Dr. Celina Venegas MCH (RBC) [Entitic mass] 24.9 pg Critically low 26.7-34.0 [facility] Comment on above: Performed By: #### M G, BNP, CMP #### [facility] [address] [place] [address] Dr. Celina Venegas MCHC (RBC) [Mass/Vol] 30.4 g/dL Normal 29.9-35.2 [facility] Comment on above: Performed By: #### M G, BNP, CMP #### [facility] [address] [place] [address] Dr. Celina Venegas MCV (RBC) [Entitic vol] 81.9 fL Normal 81.0-99.0 [facility] Comment on above: Performed By: #### M G, BNP, CMP #### [facility] [address] [place] [address] Dr. Celina Venegas MONO # 0.6 103/ul Normal 0.3-0.8 [facility] Comment on above: Performed By: #### M G, BNP, CMP #### [facility] [address] [place] [address] Dr. Celina Venegas Monocytes/100 WBC (Bld) 7.8 % Normal 1.7-12.0 [facility] Comment on above: Performed By: #### M G, BNP, CMP #### [facility] [address] [place] [address] Dr. Celina Venegas NEUT # 5.5 103/ul Normal 1.4-6.5 [facility] Comment on above: Performed By: #### M G, BNP, CMP #### [facility] [address] [place] [address] Dr. Celina Venegas Neutrophils/100 WBC (Bld) 77.6 % Critically high 43.0-75.0 [facility] Comment on above: Performed By: #### M G, BNP, CMP #### [facility] [address] [address] [address] Celina Venegas Platelet mean volume (Bld) [Entitic vol] 10.8 fL Normal 9.5-13.5 [facility] Comment on above: Performed By: #### M G, BNP, CMP #### [facility] [address] [address] [address] Celina Venegas PLT 256 103/ul Normal 150-450 [facility] Comment on above: Performed By: #### M G, BNP, CMP #### [facility] [address] [address] [address] Celina Venegas RBC 3.53 106/ul Critically low 4.20-5.40 [facility] Comment on above: Performed By: #### M G, BNP, CMP #### [facility] [address] [place] [address] Dr. Celina Venegas WBC 7.1 103/ul Normal 4.0-11.0 [facility] Comment on above: Performed By: #### M G, BNP, CMP #### [facility] [address] [place] [address] Dr. Celina Venegas Consultation Noteon 09-09-19 23 Consultation Note [id number] Normal [facility] MAGNESIUMon 09-08-2022 Magnesium [Mass/Vol] 1.1 mg/dL Critically low 1.8-2.4 [facility] Comment on above: Performed By: #### B [id number] #### [facility] [address] [address] [address] Celina Venegas PROF CHEM 8 (BAS METB)on Anion gap [Moles/Vol] 13.5 mmol/L Normal [facility] Comment on above: Performed By: #### B [id number] #### [facility] [address] [place] [address] Dr. Celina Venegas Calcium [Mass/Vol] 8.7 mg/dL Normal 8.5-10.1 [facility] Comment on above: Performed By: #### B [id number] #### [facility] [address] [address] [address] Celina Venegas Chloride [Moles/Vol] 108 mmol/L Critically high 98-107 [facility] Comment on above: Performed By: #### B [id number] #### [facility] [address] [address] [address] Celina Venegas CO2 [Moles/Vol] 22.5 mmol/L Normal 21.0-32.[address] [facility] Comment on above: Performed By: #### B [id number] #### [facility] [address] [address] [address] Celina Venegas Creatinine [Mass/Vol] 0.65 mg/dL Normal 0.55-1.02 [facility] Comment on above: Performed By: #### B [id number] #### [facility] [address] [address] [address] Celina Venegas EGFR-AF BELARUSIAN >60 Normal >=[address] [facility] Comment on above: Performed By: #### B [id number] #### [facility] [address] [address] [address] Celina Venegas EGFR-NON AF BELARUSIAN >60 Normal >=60 [facility] Comment on above: Performed By: #### B [id number] #### [facility] [address] [address] [address] Celina Venegas Glucose [Mass/Vol] 98 mg/dL Normal 74-106 [facility] Comment on above: Performed By: #### B [id number] #### [facility] [address] [address] [address] Celina Venegas Potassium [Moles/Vol] 3.0 mmol/L Critically low 3.5-5.1 [facility] Comment on above: Performed By: #### B [id number] #### [facility] [address] [address] [address] Celina Venegas Sodium [Moles/Vol] 141 mmol/L Normal 136-145 [facility] Comment on above: Performed By: #### B [id number] #### [facility] [address] [place] [address] Dr. Celina Venegas Urea nitrogen [Mass/Vol] 14.0 mg/dL Normal 7.0-18.0 [facility] Comment on above: Performed By: #### B [id number] #### [facility] [address] [place] [address] Dr. Celina Venegas Urea nitrogen/Creatinine [Mass ratio] 21.5 mg/mg Normal [facility] Comment on above: Performed By: #### B [id number] #### [facility] [address] [place] [address] Dr. Celina Venegas CBC AUTO DIFFon 09-07-2022 BASO # 0.0 103/ul Normal 0.0-0.1 [facility] Comment on above: Performed By: #### B LDCX2 #### [facility] [address] [place] [address] Dr. Celina Venegas Basophils/100 WBC (Bld) 0.2 % Normal 0.2-2.0 [facility] Comment on above: Performed By: #### B LDCX2 #### [facility] [address] [place] [address] Dr. Celina Venegas EO # 0.1 103/ul Normal 0.0-0.7 [facility] Comment on above: Performed By: #### B LDCX2 #### [facility] [address] [place] [address] Dr. Celina Venegas Eosinophils/100 WBC (Bld) 0.9 % Normal 0.9-7.0 [facility] Comment on above: Performed By: #### B LDCX2 #### [facility] [address] [place] [address] Dr. Celina Venegas Erythrocyte distribution width (RBC) [Ratio] 14.0 % Normal 11.0-15.0 [facility] Comment on above: Performed By: #### B [id number] #### [facility] [address] [place] [address] Dr. Celina Venegas Hematocrit (Bld) [Volume fraction] 31.7 % Critically low 36.0-48.0 [facility] Comment on above: Performed By: #### B LDCX2 #### [facility] [address] [place] [address] Dr. Celina Venegas Hemoglobin (Bld) [Mass/Vol] 9.2 g/dL Critically low 12.0-16.0 [facility] Comment on above: Performed By: #### B [id number] #### [facility] [address] [place] [address] Dr. Celina Venegas IG # 0.04 10e3/ul Critically high 0.00-0.03 [facility] [place] Comment on above: Performed By: #### B LDCX2 #### [facility] [address] [place] [address] Dr. Celina Venegas IG % 0.4 % Normal 0.0-0.5 [facility] Comment on above: Performed By: #### B LDCX2 #### [facility] [address] [place] [address] Dr. Celina Venegas LYMPH # 0.8 103/ul Critically low 1.2-3.8 [facility] Comment on above: Performed By: #### B LDCX2 #### [facility] [address] [place] [address] Dr. Celina Venegas Lymphocytes/100 WBC (Bld) 8.7 % Critically low 20.5-60.0 [facility] Comment on above: Performed By: #### B LDCX2 #### [facility] [address] [place] [address] Dr. Celina Venegas MANUAL DIFF REQ NO Normal [facility] Comment on above: Performed By: #### B LDCX2 #### [facility] [address] [place] [address] Dr. Celina Venegas MCH (RBC) [Entitic mass] 25.7 pg Critically low 26.7-34.0 [facility] Comment on above: Performed By: #### B LDCX2 #### [facility] [address] [place] [address] Dr. Celina Venegas MCHC (RBC) [Mass/Vol] 29.0 g/dL Critically low 29.9-35.2 [facility] Comment on above: Performed By: #### B LDCX2 #### [facility] [address] [address] [address] Celina Venegas MCV (RBC) [Entitic vol] 88.5 fL Normal 81.0-99.0 [facility] Comment on above: Performed By: #### B LDCX2 #### [facility] [address] [place] [address] Dr. Celina Venegas MONO # 0.5 103/ul Normal 0.3-0.8 [facility] Comment on above: Performed By: #### B LDCX2 #### [facility] [address] [place] [address] Dr. Celina Venegas Monocytes/100 WBC (Bld) 5.2 % Normal 1.7-12.0 [facility] Comment on above: Performed By: #### B LDCX2 #### [facility] [address] [place] [address] Dr. Celina Venegas NEUT # 7.9 103/ul Critically high 1.4-6.5 [facility] Comment on above: Performed By: #### B LDCX2 #### [facility] [address] [place] [address] Dr. Celina Venegas Neutrophils/100 WBC (Bld) 84.6 % Critically high 43.0-75.0 [facility] Comment on above: Performed By: #### B LDCX2 #### [facility] [address] [place] [address] Dr. Celina Venegas Platelet mean volume (Bld) [Entitic vol] 10.9 fL Normal 9.5-13.5 [facility] Comment on above: Performed By: #### B LDCX2 #### [facility] [address] [place] [address] Dr. Celina Venegas PLT 240 103/ul Normal 150-450 [facility] Comment on above: Performed By: #### B LDCX2 #### [facility] [address] [place], [place] [address] Dr. Celina Venegas RBC 3.58 106/ul Critically low 4.20-5.40 [facility] Comment on above: Performed By: #### B LDCX2 #### [facility] [address] [place], [place] [address] Dr. Celina Venegas WBC 9.3 103/ul Normal 4.0-11.0 [facility] Comment on above: Performed By: #### B LDCX2 #### [facility] [address] [place], [place] [address] ABD/PELV W CONon [...] by: THADDEUS WALLY Date: 2022-09-07 10:55 Normal [facility] MAGNESIUMon 09-07-2022 Magnesium [Mass/Vol] 1.6 mg/dL Critically low 1.8-2.4 [facility] Comment on above: Performed By: #### M G, BNP, CMP #### [facility] [address] [address] [address] Celina Venegas PROF CHEM 8 (BAS METB)on Anion gap [Moles/Vol] 11.6 mmol/L Normal [facility] Comment on above: Performed By: #### M G, BNP, CMP #### [facility] [address] [place] [address] Dr. Celina Venegas Calcium [Mass/Vol] 9.5 mg/dL Normal 8.5-10.1 [facility] Comment on above: Performed By: #### M G, BNP, CMP #### [facility] [address] [place] [address] Dr. Celina Venegas Chloride [Moles/Vol] 109 mmol/L Critically high 98-107 [facility] Comment on above: Performed By: #### M G, BNP, CMP #### [facility] [address] [place] [address] Dr. Celina Venegas CO2 [Moles/Vol] 23.2 mmol/L Normal 21.0-32.0 [facility] Comment on above: Performed By: #### M G, BNP, CMP #### [facility] [address] [place] [address] Dr. Celina Venegas Creatinine [Mass/Vol] 0.72 mg/dL Normal 0.55-1.02 [facility] Comment on above: Performed By: #### M G, BNP, CMP #### [facility] [address] [place] [address] Dr. Celina Venegas EGFR-AF BELARUSIAN >60 Normal >=60 [facility] Comment on above: Performed By: #### M G, BNP, CMP #### [facility] [address] [address] [address] Celina Venegas EGFR-NON AF BELARUSIAN >60 Normal >=60 [facility] Comment on above: Performed By: #### M G, BNP, CMP #### [facility] [address] [place] [address] Dr. Celina Venegas Glucose [Mass/Vol] 79 mg/dL Normal 74-106 [facility] Comment on above: Performed By: #### M G, BNP, CMP #### [facility] [address] [place] [address] Dr. Celina Venegas Potassium [Moles/Vol] 3.8 mmol/L Normal 3.5-5.1 [facility] Comment on above: Performed By: #### M G, BNP, CMP #### [facility] [address] [place] [address] Dr. Celina Venegas Sodium [Moles/Vol] 140 mmol/L Normal 136-145 [facility] Comment on above: Performed By: #### M G, BNP, CMP #### [facility] [address] [place] [address] Dr. Celina Venegas Urea nitrogen [Mass/Vol] 17.0 mg/dL Normal 7.0-18.0 [facility] Comment on above: Performed By: #### M G, BNP, CMP #### [facility] [address] [place] [address] Dr. Celina Venegas Urea nitrogen/Creatinine [Mass ratio] 23.6 mg/mg Normal [facility] Comment on above: Performed By: #### M G, BNP, CMP #### [facility] [address] [place] [address] Dr. Celina Venegas CBC AUTO DIFFon 09-06-2022 BASO # 0.0 103/ul Normal 0.0-0.1 [facility] Comment on above: Performed By: #### M G, BNP, CMP #### [facility] [address] [place] [address] Dr. Celina Venegas Basophils/100 WBC (Bld) 0.2 % Normal 0.2-2.0 [facility] Comment on above: Performed By: #### M G, BNP, CMP #### [facility] [address] [place] [address] Dr. Celina Venegas EO # 0.0 103/ul Normal 0.0-0.7 [facility] Comment on above: Performed By: #### M G, BNP, CMP #### [facility] [address] [place] [address] Dr. Celina Venegas Eosinophils/100 WBC (Bld) 0.2 % Critically low 0.9-7.0 [facility] Comment on above: Performed By: #### M G, BNP, CMP #### [facility] [address] [place] [address] Dr. Celina Venegas Erythrocyte distribution width (RBC) [Ratio] 13.9 % Normal 11.0-15.0 [facility] Comment on above: Performed By: #### M G, BNP, CMP #### [facility] [address] [place] [address] Dr. Celina Venegas Hematocrit (Bld) [Volume fraction] 30.6 % Critically low 36.0-48.0 [facility] Comment on above: Performed By: #### M G, BNP, CMP #### [facility] [address] [place] [address] Dr. Celina Venegas Hemoglobin (Bld) [Mass/Vol] 9.2 g/dL Critically low 12.0-16.0 [facility] Comment on above: Performed By: #### M G, BNP, CMP #### [facility] [address] [place] [address] Dr. Celina Venegas IG # 0.07 10e3/ul Critically high 0.00-0.03 [facility] [place] Comment on above: Performed By: #### M G, BNP, CMP #### [facility] [address] [place] [address] Dr. Celina Venegas IG % 0.6 % Critically high 0.0-0.5 [facility] Comment on above: Performed By: #### M G, BNP, CMP #### [facility] [address] [place] [address] Dr. Celina Venegas LYMPH # 0.7 103/ul Critically low 1.2-3.8 [facility] Comment on above: Performed By: #### M G, BNP, CMP #### [facility] [address] [place] [address] Dr. Celina Venegas Lymphocytes/100 WBC (Bld) 5.4 % Critically low 20.5-60.0 [facility] Comment on above: Performed By: #### M G, BNP, CMP #### [facility] [address] [place] [address] Dr. Celina Venegas MANUAL DIFF REQ NO Normal [facility] Comment on above: Performed By: #### M G, BNP, CMP #### [facility] [address] [place] [address] Dr. Celina Venegas MCH (RBC) [Entitic mass] 25.1 pg Critically low 26.7-34.0 [facility] Comment on above: Performed By: #### M G, BNP, CMP #### [facility] [address] [place] [address] Dr. Celina Venegas MCHC (RBC) [Mass/Vol] 30.1 g/dL Normal 29.9-35.2 [facility] Comment on above: Performed By: #### M G, BNP, CMP #### [facility] [address] [place] [address] Dr. Celina Venegas MCV (RBC) [Entitic vol] 83.6 fL Normal 81.0-99.0 [facility] Comment on above: Performed By: #### M G, BNP, CMP #### [facility] [address] [place] [address] Dr. Celina Venegas MONO # 0.5 103/ul Normal 0.3-0.8 [facility] Comment on above: Performed By: #### M G, BNP, CMP #### [facility] [address] [place] [address] Dr. Celina Venegas Monocytes/100 WBC (Bld) 3.6 % Normal 1.7-12.0 [facility] Comment on above: Performed By: #### M G, BNP, CMP #### [facility] [address] [address] [address] Celina Venegas NEUT # 11.4 103/ul Critically high 1.4-6.[address] [facility] Comment on above: Performed By: #### M G, BNP, CMP #### [facility] [address] [address] [address] Celina Venegas Neutrophils/100 WBC (Bld) 90.0 % Critically high 43.0-75.0 [facility] Comment on above: Performed By: #### M G, BNP, CMP #### [facility] [address] [address] [address] Celina Venegas Platelet mean volume (Bld) [Entitic vol] 10.5 fL Normal 9.5-13.5 [facility] Comment on above: Performed By: #### M G, BNP, CMP #### [facility] [address] [place] [address] Dr. Celina Venegas PLT 281 103/ul Normal 150-450 [facility] Comment on above: Performed By: #### M G, BNP, CMP #### [facility] [address] [place] [address] Dr. Celina Venegas RBC 3.66 106/ul Critically low 4.20-5.40 [facility] Comment on above: Performed By: #### M G, BNP, CMP #### [facility] [address] [place] [address] Dr. Celina Venegas WBC 12.7 103/ul Critically high 4.0-11.[address] [facility] Comment on above: Performed By: #### M G, BNP, CMP #### [facility] [address] [place] [address] Dr. Celina Venegas LIVER PROFILEon 09-06-2022 Albumin [Mass/Vol] 2.4 g/dL Critically low 3.4-5.0 [facility] Comment on above: Performed By: #### M G, BNP, CMP #### [facility] [address] [place] [address] Dr. Celina Venegas Albumin/Globulin [Mass ratio] 0.6 {ratio} Normal [facility] Comment on above: Performed By: #### M G, BNP, CMP #### [facility] [address] [place] [address] Dr. Celina Venegas ALP [Catalytic activity/Vol] 118 U/L Critically high 46-116 [facility] Comment on above: Performed By: #### M G, BNP, CMP #### [facility] [address] [place] [address] Dr. Celina Venegas ALT [Catalytic activity/Vol] 16 U/L Normal 14-59 [facility] Comment on above: Performed By: #### M G, BNP, CMP #### [facility] [address] [place] [address] Dr. Celina Venegas AST [Catalytic activity/Vol] 11 U/L Critically low 15-37 [facility] Comment on above: Performed By: #### M G, BNP, CMP #### [facility] [address] [place] [address] Dr. Celina Venegas BILI, CONJUGATED 0.6 mg/dL Critically high 0.0-0.2 [facility] Comment on above: Performed By: #### M G, BNP, CMP #### [facility] [address] [place] [address] Dr. Celina Venegas Bilirubin [Mass/Vol] 1.2 mg/dL Critically high 0.2-1.0 [facility] Comment on above: Performed By: #### M G, BNP, CMP #### [facility] [address] [place] [address] Dr. Celina Venegas Globulin (S) [Mass/Vol] 3.7 g/dL Normal [facility] Comment on above: Performed By: #### M G, BNP, CMP #### [facility] [address] [place] [address] Dr. Celina Venegas Protein [Mass/Vol] 6.1 g/dL Critically low 6.4-8.2 [facility] Comment on above: Performed By: #### M G, BNP, CMP #### [facility] [address] [place] [address] Dr. Celina Venegas MAGNESIUMon 09-06-2022 Magnesium [Mass/Vol] 1.4 mg/dL Critically low 1.8-2.4 [facility] Comment on above: Performed By: #### M G, BNP, CMP #### [facility] [address] [place] [address] Dr. Celina Venegas PROF CHEM 8 (BAS METB)on Anion gap [Moles/Vol] 12.5 mmol/L Normal [facility] Comment on above: Performed By: #### M G, BNP, CMP #### [facility] [address] [place] [address] Dr. Celina Venegas Calcium [Mass/Vol] 9.3 mg/dL Normal 8.5-10.1 [facility] Comment on above: Performed By: #### M G, BNP, CMP #### [facility] [address] [place] [address] Dr. Celina Venegas Chloride [Moles/Vol] 105 mmol/L Normal 98-107 [facility] Comment on above: Performed By: #### M G, BNP, CMP #### [facility] [address] [place] [address] Dr. Celina Venegas CO2 [Moles/Vol] 23.6 mmol/L Normal 21.0-32.[address] [facility] Comment on above: Performed By: #### M G, BNP, CMP #### [facility] [address] [place] [address] Dr. Celina Venegas Creatinine [Mass/Vol] 0.80 mg/dL Normal 0.55-1.02 [facility] Comment on above: Performed By: #### M G, BNP, CMP #### [facility] [address] [place] [address] Dr. Celina Venegas EGFR-AF BELARUSIAN >60 Normal >=[address] [facility] Comment on above: Performed By: #### M G, BNP, CMP #### [facility] [address] [place] [address] Dr. Celina Venegas EGFR-NON AF BELARUSIAN >60 Normal >=60 [facility] Comment on above: Performed By: #### M G, BNP, CMP #### [facility] [address] [address] [address] Celina Venegas Glucose [Mass/Vol] 106 mg/dL Normal 74-106 [facility] Comment on above: Performed By: #### M G, BNP, CMP #### [facility] [address] [address] [address] Celina Venegas Potassium [Moles/Vol] 3.1 mmol/L Critically low 3.5-5.1 [facility] Comment on above: Performed By: #### M G, BNP, CMP #### [facility] [address] [address] [address] Celian Vengeas Sodium [Moles/Vol] 138 mmol/L Normal 136-145 [facility] Comment on above: Performed By: #### M G, BNP, CMP #### [facility] [address] [address] [address] Celina Venegas Urea nitrogen [Mass/Vol] 19.0 mg/dL Critically high 7.0-18.0 [facility] Comment on above: Performed By: #### M G, BNP, CMP #### [facility] [address] [address] [address] Celina Venegas Urea nitrogen/Creatinine [Mass ratio] 23.8 mg/mg Normal [facility] Comment on above: Performed By: #### M G, BNP, CMP #### [facility] [address] [address] [address] Celina Venegas XR ABD FLAT UP_PA [...] THADDEUS LO Date: 2022-09-06 17:36 Normal [facility] CBC AUTO DIFFon 09-05-2022 BASO # 0.0 103/ul Normal 0.0-0.1 [facility] Comment on above: Performed By: #### C BC #### [facility] [address] [address] [address] Celina Venegas Basophils/100 WBC (Bld) 0.1 % Critically low 0.2-2.0 [facility] Comment on above: Performed By: #### C BC #### [facility] [address] [address] [address] Celina Venegas EO # 0.0 103/ul Normal 0.0-0.7 [facility] Comment on above: Performed By: #### C BC #### [facility] [address] [address] [address] Celina Venegas Eosinophils/100 WBC (Bld) 0.0 % Critically low 0.9-7.0 [facility] Comment on above: Performed By: #### C BC #### [facility] [address] [address] [address] Celina Venegas Erythrocyte distribution width (RBC) [Ratio] 13.8 % Normal 11.0-15.0 [facility] Comment on above: Performed By: #### C BC #### [facility] [address] [address] [address] Celina Venegas Hematocrit (Bld) [Volume fraction] 35.8 % Critically low 36.0-48.0 [facility] Comment on above: Performed By: #### C BC #### [facility] [address] [address] [address] Celina Venegas Hemoglobin (Bld) [Mass/Vol] 11.1 g/dL Critically low 12.0-16.0 [facility] Comment on above: Performed By: #### C BC #### [facility] [address] [address] [address] Celina Venegas IG # 0.08 10e3/ul Critically high 0.00-0.03 [facility] [place] Comment on above: Performed By: #### C BC #### [facility] [address] [address] [address] Celina Venegas IG % 0.4 % Normal 0.0-0.5 [facility] Comment on above: Performed By: #### C BC #### [facility] [address] [place] [address] Dr. Celina Venegas LYMPH # 0.6 103/ul Critically low 1.2-3.8 [facility] Comment on above: Performed By: #### C BC #### [facility] [address] [place] [address] Dr. Celina Venegas Lymphocytes/100 WBC (Bld) 3.4 % Critically low 20.5-60.0 [facility] Comment on above: Performed By: #### C BC #### [facility] [address] [place] [address] Dr. Celina Venegas MANUAL DIFF REQ NO Normal [facility] Comment on above: Performed By: #### C BC #### [facility] [address] [place] [address] Dr. Celina Venegas MCH (RBC) [Entitic mass] 25.5 pg Critically low 26.7-34.0 [facility] Comment on above: Performed By: #### C BC #### [facility] [address] [place] [address] Dr. Celina Venegas MCHC (RBC) [Mass/Vol] 31.0 g/dL Normal 29.9-35.2 [facility] Comment on above: Performed By: #### C BC #### [facility] [address] [place] [address] Dr. Celina Venegas MCV (RBC) [Entitic vol] 82.1 fL Normal 81.0-99.0 [facility] Comment on above: Performed By: #### C BC #### [facility] [address] [place] [address] Dr. Celina Venegas MONO # 0.5 103/ul Normal 0.3-0.8 [facility] Comment on above: Performed By: #### C BC #### [facility] [address] [address] [address] Celina Venegas Monocytes/100 WBC (Bld) 2.9 % Normal 1.7-12.0 [facility] Comment on above: Performed By: #### C BC #### [facility] [address] [address] [address] Celina Venegas NEUT # 17.3 103/ul Critically high 1.4-6.[address] [facility] Comment on above: Performed By: #### C BC #### [facility] [address] [place] [address] Dr. Celina Venegas Neutrophils/100 WBC (Bld) 93.2 % Critically high 43.0-75.0 [facility] Comment on above: Performed By: #### C BC #### [facility] [address] [place] [address] Dr. Celina Venegas Platelet mean volume (Bld) [Entitic vol] 10.1 fL Normal 9.5-13.5 [facility] Comment on above: Performed By: #### C BC #### [facility] [address] [place] [address] Dr. Celina Venegas PLT 367 103/ul Normal 150-450 [facility] Comment on above: Performed By: #### C BC #### [facility] [address] [place] [address] Dr. Celina Venegas RBC 4.36 106/ul Normal 4.20-5.40 [facility] Comment on above: Performed By: #### C BC #### [facility] [address] [place] [address] Dr. Celina Venegas WBC 18.6 103/ul Critically high 4.0-11.[address] [facility] Comment on above: Performed By: #### C BC #### [facility] [address] [place] [address] Dr. Celina Venegas LIVER PROFILEon 09-05-2022 Albumin [Mass/Vol] 3.0 g/dL Critically low 3.4-5.0 [facility] Comment on above: Performed By: #### H STROPN #### [facility] [address] [address] [address] Celina Venegas Albumin/Globulin [Mass ratio] 0.7 {ratio} Normal [facility] Comment on above: Performed By: #### H STROPN #### [facility] [address] [address] [address] Celina Venegas ALP [Catalytic activity/Vol] 132 U/L Critically high 46-116 [facility] Comment on above: Performed By: #### H STROPN #### [facility] [address] [address] [address] Celina Venegas ALT [Catalytic activity/Vol] 20 U/L Normal 14-59 [facility] Comment on above: Performed By: #### H STROPN #### [facility] [address] [place] [address] Dr. Celina Venegas AST [Catalytic activity/Vol] 15 U/L Normal 15-37 [facility] Comment on above: Performed By: #### H STROPN #### [facility] [address] [place] [address] Dr. Celina Venegas BILI, CONJUGATED 0.7 mg/dL Critically high 0.0-0.2 [facility] Comment on above: Performed By: #### H STROPN #### [facility] [address] [place] [address] Dr. Celina Venegas Bilirubin [Mass/Vol] 1.4 mg/dL Critically high 0.2-1.0 [facility] Comment on above: Performed By: #### H STROPN #### [facility] [address] [place] [address] Dr. Celina Venegas Globulin (S) [Mass/Vol] 4.1 g/dL Normal [facility] Comment on above: Performed By: #### H STROPN #### [facility] [address] [place] [address] Dr. Celina Venegas Protein [Mass/Vol] 7.1 g/dL Normal 6.4-8.2 [facility] Comment on above: Performed By: #### H STROPN #### [facility] [address] [place] [address] Dr. Celina Venegas MAGNESIUMon 09-05-2022 Magnesium [Mass/Vol] 1.5 mg/dL Critically low 1.8-2.4 [facility] Comment on above: Performed By: #### C BC #### [facility] [address] [place] [address] Dr. Celina Venegas MRI ABDOMEN WO CONon [...] THADDEUS LO Date: 2022-09-05 13:29 Normal [facility] PROF CHEM 8 (BAS METB)on Anion gap [Moles/Vol] 13.5 mmol/L Normal [facility] Comment on above: Performed By: #### C BC #### [facility] [address] [place] [address] Dr. Celina Venegas Calcium [Mass/Vol] 8.8 mg/dL Normal 8.5-10.1 [facility] Comment on above: Performed By: #### C BC #### [facility] [address] [place] [address] Dr. Celina Venegas Chloride [Moles/Vol] 106 mmol/L Normal 98-107 [facility] Comment on above: Performed By: #### C BC #### [facility] [address] [place] [address] Dr. Celina Venegas CO2 [Moles/Vol] 24.0 mmol/L Normal 21.0-32.[address] [facility] Comment on above: Performed By: #### C BC #### [facility] [address] [address] [address] Celina Venegas Creatinine [Mass/Vol] 1.31 mg/dL Critically high 0.55-1.02 [facility] Comment on above: Performed By: #### C BC #### [facility] [address] [address] [address] Celina Venegas EGFR-AF BELARUSIAN 51 mL/min/1.73m2 Critically low >=60 [facility] Comment on above: Performed By: #### C BC #### [facility] [address] [address] [address] Celina Venegas EGFR-NON AF BELARUSIAN 42 mL/min/1.73m2 Critically low >=60 [facility] Comment on above: Performed By: #### C BC #### [facility] [address] [address] [address] Celina Venegas Glucose [Mass/Vol] 127 mg/dL Critically high 74-106 [facility] Comment on above: Performed By: #### C BC #### [facility] [address] [address] [address] Celina Venegas Potassium [Moles/Vol] 3.5 mmol/L Normal 3.5-5.1 [facility] Comment on above: Performed By: #### C BC #### [facility] [address] [address] [address] Celina Venegas Sodium [Moles/Vol] 140 mmol/L Normal 136-145 [facility] Comment on above: Performed By: #### C BC #### [facility] [address] [address] [address] Celina Venegas Urea nitrogen [Mass/Vol] 40.0 mg/dL Critically high 7.0-18.0 [facility] Comment on above: Performed By: #### C BC #### [facility] [address] [address] [address] Celina Venegas Urea nitrogen/Creatinine [Mass ratio] 30.5 mg/mg Normal [facility] Comment on above: Performed By: #### C BC #### [facility] [address] [place] [address] Dr. Celina Venegas TROPONIN, HIGH SENSITIVITYon 09-05-2022 HSTROP 48.5 pg/mL Normal 4.0-51.3 [facility] Comment on above: Result Comment: CUT- OFF POINTS HAVE BEEN ESTABLISHED BASED ON THE FOURTH UNIVERSAL DEFINITIONS OF MYOCARDIAL INFARCTION. THE UPPER REFERENCE LIMIT (URL) OF TROPONIN, DEFINED THE 99TH PERCENTILE OF cTnI DISTRIBUTION IN A REFERENCE POPULATION, HAS BEEN CONFIRMED THE DECISION THRESHOLD FOR SC DIAGNOSIS. Performed By: #### B [id number] #### [facility] [address] [place] [address] Dr. Celina Venegas AMYLASEon 09-04-2022 Amylase [Catalytic activity/Vol] 65 U/L Normal 25-115 [facility] Comment on above: Performed By: #### M G, BNP, CMP #### [facility] [address] [place] [address] Dr. Celina Venegsa CBC AUTO DIFFon 09-04-2022 BASO # 0.0 103/ul Normal 0.0-0.1 [facility] Comment on above: Performed By: #### B [id number] #### [facility] [address] [place] [address] Dr. Celina Venegas Basophils/100 WBC (Bld) 0.2 % Normal 0.2-2.0 [facility] Comment on above: Performed By: #### B LDCX2 #### [facility] [address] [place] [address] Dr. Celina Venegas EO # 0.0 103/ul Normal 0.0-0.7 [facility] Comment on above: Performed By: #### B LDCX2 #### [facility] [address] [place] [address] Dr. Celina Venegas Eosinophils/100 WBC (Bld) 0.2 % Critically low 0.9-7.0 [facility] Comment on above: Performed By: #### B LDCX2 #### [facility] [address] [place] [address] Dr. Celina Venegas Erythrocyte distribution width (RBC) [Ratio] 13.7 % Normal 11.0-15.0 [facility] Comment on above: Performed By: #### B LDCX2 #### [facility] [address] [place] [address] Dr. Celina Venegas Hematocrit (Bld) [Volume fraction] 41.7 % Normal 36.0-48.0 [facility] Comment on above: Performed By: #### B LDCX2 #### [facility] [address] [place] [address] Dr. Celina Venegas Hemoglobin (Bld) [Mass/Vol] 13.3 g/dL Normal 12.0-16.0 [facility] Comment on above: Performed By: #### B LDCX2 #### [facility] [address] [place] [address] Dr. Celina Venegas IG # 0.12 10e3/ul Critically high 0.00-0.03 [facility] [place] Comment on above: Performed By: #### B LDCX2 #### [facility] [address] [place] [address] Dr. Celina Venegas IG % 0.6 % Critically high 0.0-0.5 [facility] Comment on above: Performed By: #### B [id number] #### [facility] [address] [place] [address] Dr. Celina Venegas LYMPH # 1.2 103/ul Normal 1.2-3.8 [facility] Comment on above: Performed By: #### B LDCX2 #### [facility] [address] [place] [address] Dr. Celina Venegas Lymphocytes/100 WBC (Bld) 5.7 % Critically low 20.5-60.0 [facility] Comment on above: Performed By: #### B LDCX2 #### [facility] [address] [place] [address] Dr. Celina Venegas MANUAL DIFF REQ NO Normal [facility] Comment on above: Performed By: #### B LDCX2 #### [facility] [address] [address] [address] Celina Venegas MCH (RBC) [Entitic mass] 25.3 pg Critically low 26.7-34.0 [facility] Comment on above: Performed By: #### B [id number] #### [facility] [address] [address] [address] Celina Venegas MCHC (RBC) [Mass/Vol] 31.9 g/dL Normal 29.9-35.2 [facility] Comment on above: Performed By: #### B LDCX2 #### [facility] [address] [place] [address] Dr. Celina Venegas MCV (RBC) [Entitic vol] 79.4 fL Critically low 81.0-99. 0 [facility] Comment on above: Performed By: #### B LDCX2 #### [facility] [address] [place] [address] Dr. Celina Venegas MONO # 1.0 103/ul Critically high 0.3-0.8 [facility] Comment on above: Performed By: #### B LDCX2 #### [facility] [address] [place] [address] Dr. Celina Venegas Monocytes/100 WBC (Bld) 4.5 % Normal 1.7-12.0 [facility] Comment on above: Performed By: #### B LDCX2 #### [facility] [address] [place] [address] Dr. Celina Venegas NEUT # 18.8 103/ul Critically high 1.4-6.[address] [facility] Comment on above: Performed By: #### B LDCX2 #### [facility] [address] [place] [address] Dr. Celina Venegas Neutrophils/100 WBC (Bld) 88.8 % Critically high 43.0-75.0 [facility] Comment on above: Performed By: #### B LDCX2 #### [facility] [address] [place] [address] Dr. Celina Venegas Platelet mean volume (Bld) [Entitic vol] 10.0 fL Normal 9.5-13.5 [facility] Comment on above: Performed By: #### B LDCX2 #### [facility] [address] [place], [place] [address] Dr. Celina Venegas PLT 563 103/ul Critically high 150-450 [facility] Comment on above: Performed By: #### B LDCX2 #### [facility] [address] [place], [place] [address] Dr. Celina Venegas RBC 5.25 106/ul Normal 4.20-5.40 [facility] Comment on above: Performed By: #### B LDCX2 #### [facility] [address] [place], [place] [address] Dr. eClina Venegas WBC 21.2 103/ul Critically high 4.0-11.[address] [facility] Comment on above: Performed By: #### B LDCX2 #### [facility] [address] [place], [place] [address] ABD/PELV W CONon [...] RAJ EDGAR Date: 2022-09-04 21:17 Normal [facility] CULTURE BLOODon 09-04-2022 Microscopic examination of blood, culture Culture Observations: NO GROWTH AT 5 DAYS. Normal [facility] Comment on above: Performed By: #### B [id number] #### [facility] [address] [place] [address] Dr. Celina Venegas Performed By: #### H STROPN #### [facility] [address] [place] [address] Dr. Celina Venegas ER URINE PROFILEon 3 Bilirubin Ql (U) Negative Normal NEGATIVE [facility] Comment on above: Performed By: #### H STROPN #### [facility] [address] [place] [address] Dr. Celina Venegas Clarity (U) CLEAR Normal CLEAR [facility] Comment on above: Performed By: #### H STROPN #### [facility] [address] [place] [address] Dr. Celina Venegas Color (U) LT. YELLOW Normal YELLOW [facility] Comment on above: Performed By: #### H STROPN #### [facility] [address] [place] [address] Dr. Celina SHEPARD A micrscopic examination will be performed if indicated. Normal [facility] Comment on above: Performed By: #### H STROPN #### [facility] [address] [place] [address] Dr. Celina Venegas Glucose Ql (U) Negative Normal NEGATIVE [facility] Comment on above: Performed By: #### H STROPN #### [facility] [address] [place] [address] Dr. Celina Venegas Hemoglobin Ql (U) Negative Normal NEGATIVE [facility] [place] Comment on above: Performed By: #### H STROPN #### [facility] [address] [address] [address] Celina Venegas Ketones Ql (U) TRACE Abnormal NEGATIVE [facility] Comment on above: Performed By: #### H STROPN #### [facility] [address] [place] [address] Dr. Celina Venegas LEUKOCYTES Negative Normal NEGATIVE [facility] Comment on above: Performed By: #### H STROPN #### [facility] [address] [place] [address] Dr. Celina Venegas Nitrite Ql (U) Negative Normal NEGATIVE [facility] Comment on above: Performed By: #### H STROPN #### [facility] [address] [place] [address] Dr. Celina Venegas pH (U) 6.0 [pH] Normal 5-9 [facility] Comment on above: Performed By: #### H STROPN #### [facility] [address] [place] [address] Dr. Celina Venegas SPEC GRAVITY <=1.005 Abnormal 1.005-<=1.02 5 [facility] Comment on above: Performed By: #### H STROPN #### [facility] [address] [place] [address] Dr. Celina Venegas UA PROTEIN TRACE Normal NEGATIVE/ TRACE [facility] Comment on above: Performed By: #### H STROPN #### [facility] [address] [place] [address] Dr. Celina Venegas UR MICRO IND NOT INDICATED Normal [facility] Comment on above: Performed By: #### H STROPN #### [facility] [address] [place] [address] Dr. Celina Venegas Urobilinogen Qn (U) 0.2 {Pamela'U}/dL Normal 0.2 - 1. 0 [facility] Comment on above: Performed By: #### H STROPN #### [facility] [address] [place] [address] Dr. Celina Venegas LACTATE/LACTIC ACIDon 2022 Lactate [Moles/Vol] 1.4 mmol/L Normal 0.4-2.0 [facility] Comment on above: Performed By: #### B [id number] #### [facility] [address] [place] [address] Dr. Celina Venegas LIPASEon 09-04-2022 Lipase [Catalytic activity/Vol] 194.0 U/L Normal 73.0-393.0 [facility] Comment on above: Performed By: #### M G, BNP, CMP #### [facility] [address] [place] [address] Dr. Celina Venegas PREG HCG QUALon 09-04-2022 , QUAL Negative Normal NEGATIVE [facility] Comment on above: Performed By: #### P REG #### [facility] [address] [place] [address] Dr. Celina Venegas PROF 14(COMP METB)on 023 Albumin [Mass/Vol] 3.6 g/dL Normal 3.4-5.0 [facility] Comment on above: Performed By: #### M G, BNP, CMP #### [facility] [address] [place] [address] Dr. Celina Venegas Albumin/Globulin [Mass ratio] 0.8 {ratio} Normal [facility] Comment on above: Performed By: #### M G, BNP, CMP #### [facility] [address] [place] [address] Dr. Celina Vneegas ALP [Catalytic activity/Vol] 175 U/L Critically high 46-116 [facility] Comment on above: Performed By: #### M G, BNP, CMP #### [facility] [address] [address] [address] Celina Venegas ALT [Catalytic activity/Vol] 22 U/L Normal 14-59 [facility] Comment on above: Performed By: #### M G, BNP, CMP #### [facility] [address] [address] [address] Celina Venegas Anion gap [Moles/Vol] 15.8 mmol/L Normal [facility] Comment on above: Performed By: #### M G, BNP, CMP #### [facility] [address] [address] [address] Celina Venegas AST [Catalytic activity/Vol] 16 U/L Normal 15-37 [facility] Comment on above: Performed By: #### M G, BNP, CMP #### [facility] [address] [address] [address] Celina Venegas Bilirubin [Mass/Vol] 0.7 mg/dL Normal 0.2-1.0 [facility] Comment on above: Performed By: #### M G, BNP, CMP #### [facility] [address] [address] [address] Celina Venegas Calcium [Mass/Vol] 9.2 mg/dL Normal 8.5-10.1 [facility] Comment on above: Performed By: #### M G, BNP, CMP #### [facility] [address] [address] [address] Celina Venegas Chloride [Moles/Vol] 99 mmol/L Normal 98-107 [facility] Comment on above: Performed By: #### M G, BNP, CMP #### [facility] [address] [address] [address] Celina Venegas CO2 [Moles/Vol] 25.1 mmol/L Normal 21.0-32.[address] [facility] Comment on above: Performed By: #### M G, BNP, CMP #### [facility] [address] [address] [address] Celina Venegas Creatinine [Mass/Vol] 1.90 mg/dL Critically high 0.55-1.02 [facility] Comment on above: Performed By: #### M G, BNP, CMP #### [facility] [address] [place] [address] Dr. Celina Venegas EGFR-AF BELARUSIAN 34 mL/min/1.73m2 Critically low >=60 [facility] Comment on above: Performed By: #### M G, BNP, CMP #### [facility] [address] [place] [address] Dr. Celina Venegas EGFR-NON AF BELARUSIAN 28 mL/min/1.73m2 Critically low >=60 [facility] Comment on above: Performed By: #### M G, BNP, CMP #### [facility] [address] [place] [address] Dr. Celina Venegas Globulin (S) [Mass/Vol] 4.4 g/dL Normal [facility] Comment on above: Performed By: #### M G, BNP, CMP #### [facility] [address] [place] [address] Dr. Celina Venegas Glucose [Mass/Vol] 139 mg/dL Critically high 74-106 [facility] Comment on above: Performed By: #### M G, BNP, CMP #### [facility] [address] [place] [address] Dr. Celina Venegas Potassium [Moles/Vol] 2.8 mmol/L Critically low 3.5-5.1 [facility] Comment on above: Performed By: #### M G, BNP, CMP #### [facility] [address] [place] [address] Dr. Celina Venegas Protein [Mass/Vol] 8.0 g/dL Normal 6.4-8.2 [facility] Comment on above: Performed By: #### M G, BNP, CMP #### [facility] [address] [place] [address] Dr. Celina Venegas Sodium [Moles/Vol] 136 mmol/L Normal 136-145 [facility] Comment on above: Performed By: #### M G, BNP, CMP #### [facility] [address] [address] [address] Celina Venegas Urea nitrogen [Mass/Vol] 49.0 mg/dL Critically high 7.0-18.0 [facility] Comment on above: Performed By: #### M G, BNP, CMP #### [facility] [address] [place], [place] [address] Dr. Celina Venegas Urea nitrogen/Creatinine [Mass ratio] 25.8 mg/mg Normal [facility] Comment on above: Performed By: #### M G, BNP, CMP #### [facility] [address] [place], [place] [address] Dr. Celina Venegas TROPONIN, HIGH SENSITIVITYon 09-04-2022 HSTROP 63.4 pg/mL Critically high 4.0-51.3 [facility] Comment on above: Result Comment: CUT- OFF POINTS HAVE BEEN ESTABLISHED BASED ON THE FOURTH UNIVERSAL DEFINITIONS OF MYOCARDIAL INFARCTION. THE UPPER REFERENCE LIMIT (URL) OF TROPONIN, DEFINED THE 99TH PERCENTILE OF cTnI DISTRIBUTION IN A REFERENCE POPULATION, HAS BEEN CONFIRMED THE DECISION THRESHOLD FOR SC DIAGNOSIS. Performed By: #### B [id number] #### [facility] [address] [place] [address] Dr. Celina Venegas XR CHEST 1 Von [...] FELICIANO QUIROZ Date: 2022-09-04 20:25 Normal [facility] CARDIAC LOUISE ADMITon 023 CK [Catalytic activity/Vol] 10 U/L Critically low 26-192 [facility] Comment on above: Performed By: #### B [id number] #### [facility] [address] [address] [address] Celina Venegas CK.MB [Mass/Vol] ng/mL Normal <=3.60 [facility] Comment on above: Performed By: #### B [id number] #### [facility] [address] [place] [address] Dr. Celina Venegas HSTROP 11.8 pg/mL Normal 4.0-51.3 [facility] Comment on above: Result Comment: CUT- OFF POINTS HAVE BEEN ESTABLISHED BASED ON THE FOURTH UNIVERSAL DEFINITIONS OF MYOCARDIAL INFARCTION. THE UPPER REFERENCE LIMIT (URL) OF TROPONIN, DEFINED THE 99TH PERCENTILE OF cTnI DISTRIBUTION IN A REFERENCE POPULATION, HAS BEEN CONFIRMED THE DECISION THRESHOLD FOR SC DIAGNOSIS. Performed By: #### B [id number] #### [facility] [address] [place] [address] Dr. Celina Venegas SHAWANDA 27 ng/mL Normal 9-82 [facility] Comment on above: Performed By: #### B [id number] #### [facility] [address] [place] [address] Dr. Celina Venegas CBC AUTO DIFFon 08-20-2022 BASO # 0.0 103/ul Normal 0.0-0.1 [facility] Comment on above: Performed By: #### P REG #### [facility] [address] [place] [address] Dr. Celina Venegas Basophils/100 WBC (Bld) 0.3 % Normal 0.2-2.0 [facility] Comment on above: Performed By: #### P REG #### [facility] [address] [place] [address] Dr. Celina Venegas EO # 0.0 103/ul Normal 0.0-0.7 [facility] Comment on above: Performed By: #### P REG #### [facility] [address] [place] [address] Dr. Celina Venegas Eosinophils/100 WBC (Bld) 0.3 % Critically low 0.9-7.0 [facility] Comment on above: Performed By: #### P REG #### [facility] [address] [place] [address] Dr. Celina Venegas Erythrocyte distribution width (RBC) [Ratio] 12.7 % Normal 11.0-15.0 [facility] Comment on above: Performed By: #### P REG #### [facility] [address] [address] [address] Celina Venegas Hematocrit (Bld) [Volume fraction] 35.8 % Critically low 36.0-48.0 [facility] Comment on above: Performed By: #### P REG #### [facility] [address] [address] [address] Celina Venegas Hemoglobin (Bld) [Mass/Vol] 11.5 g/dL Critically low 12.0-16.0 [facility] Comment on above: Performed By: #### P REG #### [facility] [address] [address] [address] Celina Venegas IG # 0.04 10e3/ul Critically high 0.00-0.03 [facility] [place] Comment on above: Performed By: #### P REG #### [facility] [address] [place] [address] Dr. Celina Venegas IG % 0.4 % Normal 0.0-0.5 [facility] Comment on above: Performed By: #### P REG #### [facility] [address] [place] [address] Dr. Celina Venegas LYMPH # 1.6 103/ul Normal 1.2-3.8 [facility] Comment on above: Performed By: #### P REG #### [facility] [address] [place] [address] Dr. Celina Venegas Lymphocytes/100 WBC (Bld) 14.0 % Critically low 20.5-60.0 [facility] Comment on above: Performed By: #### P REG #### [facility] [address] [place] [address] Dr. Celina Venegas MANUAL DIFF REQ NO Normal [facility] Comment on above: Performed By: #### P REG #### [facility] [address] [place] [address] Dr. Celina Venegas MCH (RBC) [Entitic mass] 25.8 pg Critically low 26.7-34.0 [facility] Comment on above: Performed By: #### P REG #### [facility] [address] [place] [address] Dr. Celina Venegas MCHC (RBC) [Mass/Vol] 32.1 g/dL Normal 29.9-35.2 [facility] Comment on above: Performed By: #### P REG #### [facility] [address] [address] [address] Celina Venegas MCV (RBC) [Entitic vol] 80.3 fL Critically low 81.0-99. 0 [facility] Comment on above: Performed By: #### P REG #### [facility] [address] [address] [address] Celina Venegas MONO # 0.9 103/ul Critically high 0.3-0.8 [facility] Comment on above: Performed By: #### P REG #### [facility] [address] [address] [address] Celina Venegas Monocytes/100 WBC (Bld) 8.2 % Normal 1.7-12.0 [facility] Comment on above: Performed By: #### P REG #### [facility] [address] [address] [address] Celina Venegas NEUT # 8.7 103/ul Critically high 1.4-6.5 [facility] Comment on above: Performed By: #### P REG #### [facility] [address] [address] [address] Celina Venegas Neutrophils/100 WBC (Bld) 76.8 % Critically high 43.0-75.0 [facility] Comment on above: Performed By: #### P REG #### [facility] [address] [address] [address] Celina Venegas Platelet mean volume (Bld) [Entitic vol] 10.7 fL Normal 9.5-13.5 [facility] Comment on above: Performed By: #### P REG #### [facility] [address] [address] [address] Celina Venegas PLT 357 103/ul Normal 150-450 [facility] Comment on above: Performed By: #### P REG #### [facility] [id number] Celina Venegas RBC 4.46 106/ul Normal 4.20-5.40 [facility] Comment on above: Performed By: #### P REG #### [facility] [address] [place], [place] [address] Dr. Celina Venegas WBC 11.4 103/ul Critically high 4.0-11.[address] [facility] Comment on above: Performed By: #### P REG #### [facility] [address] [place], [place] [address] ABD/PELV W CONon [...] KAYDEN AGUILAR Date: 2022-08-20 10:51 Normal [facility] Covid-19 PCR ([facility])on SARS-CoV-2 (COVID-19) RNA ELVA+probe Ql (Unsp spec) Not detected Normal NOT DETECTED [facility] Comment on above: Result Comment: When [...] this test is supported by the [employer] and Human Service's declaration that [...] used). Performed By: #### P REG #### [facility] [address] [place], [place] [address] Dr. Celina Venegas ER URINE PROFILEon 3 Bilirubin Ql (U) Negative Normal NEGATIVE [facility] Comment on above: Performed By: #### M G, BNP, CMP #### [facility] [address] [place], [place] [address] Dr. Celina Venegas Clarity (U) CLEAR Normal CLEAR [facility] Comment on above: Performed By: #### M G, BNP, CMP #### [facility] [address] [address] [address] Celina Venegas Color (U) YELLOW Normal YELLOW [facility] Comment on above: Performed By: #### M G, BNP, CMP #### [facility] [address] [address] [address] Celina SHEPARD A micrscopic examination will be performed if indicated. Normal [facility] Comment on above: Performed By: #### M G, BNP, CMP #### [facility] [address] [address] [address] Celina Venegas Glucose Ql (U) Negative Normal NEGATIVE [facility] Comment on above: Performed By: #### M G, BNP, CMP #### [facility] [address] [place] [address] Dr. Celina Venegas Hemoglobin Ql (U) Negative Normal NEGATIVE [facility] [place] Comment on above: Performed By: #### M G, BNP, CMP #### [facility] [address] [place] [address] Dr. Celina Venegas Ketones Ql (U) Negative Normal NEGATIVE [facility] Comment on above: Performed By: #### M G, BNP, CMP #### [facility] [address] [place] [address] Dr. Celina Venegas LEUKOCYTES Negative Normal NEGATIVE [facility] Comment on above: Performed By: #### M G, BNP, CMP #### [facility] [address] [place] [address] Dr. Celina Venegas Nitrite Ql (U) Negative Normal NEGATIVE [facility] Comment on above: Performed By: #### M G, BNP, CMP #### [facility] [address] [place] [address] Dr. Celina Venegas pH (U) 7.0 [pH] Normal 5-9 [facility] Comment on above: Performed By: #### M G, BNP, CMP #### [facility] [address] [place] [address] Dr. Celina Venegas Protein (U) [Mass/Vol] 30 mg/dL Abnormal NEGAT LALO/ TRACE [facility] Comment on above: Performed By: #### M G, BNP, CMP #### [facility] [address] [place] [address] Dr. Celina Venegas SPEC GRAVITY 1.005 Normal 1.005-<=1.02 5 [facility] Comment on above: Performed By: #### M G, BNP, CMP #### [facility] [address] [place] [address] Dr. Celina Venegas UR MICRO IND INDICATED Normal [facility] Comment on above: Performed By: #### M G, BNP, CMP #### [facility] [address] [place] [address] Dr. Celina Venegas Urobilinogen Qn (U) 1.0 {Pamela'U}/dL Normal 0.2 - 1. 0 [facility] Comment on above: Performed By: #### M G, BNP, CMP #### [facility] [address] [place] [address] Dr. Celina Venegas PROF 14(COMP METB)on 023 Albumin [Mass/Vol] 3.2 g/dL Critically low 3.4-5.0 [facility] Comment on above: Performed By: #### P REG #### [facility] [address] [place] [address] Dr. Celina Venegas Albumin/Globulin [Mass ratio] 0.8 {ratio} Normal [facility] Comment on above: Performed By: #### P REG #### [facility] [address] [place] [address] Dr. Celina Venegas ALP [Catalytic activity/Vol] 190 U/L Critically high 46-116 [facility] Comment on above: Performed By: #### P REG #### [facility] [address] [place] [address] Dr. Celina Venegas ALT [Catalytic activity/Vol] 44 U/L Normal 14-59 [facility] Comment on above: Performed By: #### P REG #### [facility] [address] [place] [address] Dr. Celina Venegas Anion gap [Moles/Vol] 15.6 mmol/L Normal [facility] Comment on above: Performed By: #### P REG #### [facility] [address] [address] [address] Celina Venegas AST [Catalytic activity/Vol] 36 U/L Normal 15-37 [facility] Comment on above: Performed By: #### P REG #### [facility] [address] [address] [address] Celina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
[2023-09-29 10:15] LABS: Free T3 2.59 pg/mL (2.18-3.98); Thyroid Stimulating Hormone 0.044 uIU/mL (0.358-3.740)
[2023-09-29 11:02] LABS: Free T4 1.47 ng/dL (0.76-1.46)
== END 2023-09-29 07:51 | disposition home or self-care (01) ==
LOC: LAB 07:51
PROVIDERS: PCP Family Medicine; Visit Provider Internal Medicine
DX: I47.29 Other ventricular tachycardia (principal); E05.90 Thyrotoxicosis, unspecified without thyrotoxic crisis or storm; E05.00 Thyrotoxicosis with diffuse goiter without thyrotoxic crisis or storm
CPT/HCPCS: 36415; 80048; 84439; 84443; 84481; 85025

== ENCOUNTER 2023-10-26 08:38 | Outpatient (OUT) | payer OTHER, SELFPAY ==
--- NOTE | 2023-10-26 08:58 | XR_ITS ---
The [address] [address] Patient Name: MARINA MIRZA MRN: [id number] date: 1970 Sex: F Assigned Patient Location: [facility] Current Patient Location: [facility] Accession/Order Number: [id number] Exam Date: 10/26/2023 08:55 Report Date: 10/26/2023 09:16 At the request of: BRAVO MORFIN Procedure: XR chest 2V PROCEDURE: XR chest 2V DATE: 10/26/2023 7:55 AM CDT COMPARISONS: 03/15/2023 and 05/24/2023 CLINICAL INDICATION: 53 years Female Other Specified Heart Block I45.5 FINDINGS: The cardiomediastinal silhouette and pulmonary vasculature are within normal limits. And electronic cardiac device is now in place. It appears to be in good position in these projections. The lungs are clear. There is no evidence of pleural effusion or pneumothorax. XR/XR chest 2V IMPRESSION: Chest radiograph is within normal limits. Electronic cardiac device has been placed in the interval. Electronically authenticated by: ARTUR ZARATE Date: 10/26/2023 09:16
--- OUTSIDE RECORDS SUMMARY | 2023-10-26 09:01 | XMS_ITS | CCD ---
Author Organization [facility] Care Team Providers Care Resourcing Advisor Name Role Phone Hector QUILES Attending Unavailable Hector QUILES Attending Unavailable Musa Caro Referring Unavailable MISC, DR TOMPKINS Primary Care Unavailable MISC, DR TOMPKINS Attending Unavailable MISC, DR TOMPKINS Admitting Unavailable ROBBIE ., YAYO Admitting Unavailable ZIEBLORI, DR THADDEUS Hair Consulting Unavailable [facility] Primary Care Unavailable ROBBIE ., YAYO Attending Unavailable DAMIÁN ., DR WILCOX Consulting Unavailable SWEENEY ., MR CAPUTO Consulting Unavailable NILL ., DR SAHA Consulting Unavailable FELICIANO QUIROZ Consulting Unavailable GOINS, HIMA Consulting Unavailable ROBBIE ., YAYO Consulting [...] PABLO Consulting Unavailable TROTTI, GIROLAMO Consulting Unavailable KERRI BRYANT Consulting Unavailable SHAIKH Michaelle SKELTON Consulting Unavailable EMILE DOWNS Consulting Unavailable LISSA ARTEAGA Consulting Unavailable HUMAIRA GOINS Consulting Unavailable SISTER, TONNY Consulting Unavailable ROBBIE ., YAYO Consulting Unavailable BRIEN, GABRIELLA Consulting Unavailable MYCHAL STOREY Consulting Unavailable LOUISE POLLOCK Consulting Unavailable ARTUR ZARATE Consulting Unavailable SYLWIA CLEMENT Consulting Unavailable RAQUEL SHETH Admitting Unavailable MISTodd, DR TOMPKINS Primary Care Unavailable ROBBIE BLOSSOM PALMER Consulting Unavailable RAQUEL SHETH Attending Unavailable RAQUEL [...] Attending Unavailable Sylwia Clement Primary Care Unavailable Raul Lopez Admitting Unavailable Jessica, Raul Admitting Unavailable Jessica, Raul Attending Unavailable Sylwia Clement Primary Care Unavailable FABIAN MORFIN Attending Unavailable PERRY, CHOLO Attending Unavailable PERRY, CHOLO Attending Unavailable FABIAN MORFIN Attending Unavailable FESTUSEREAUGUSTIN HUDSON Attending Unavailable ELTASAM, EHAB Referring Unavailable DESTINY FREDERICK Admitting Unavailab BARBRA Gutierrez Attending Unavailable CHOLO CRUZ Attending Unavailable FABIAN MORFIN Attending Unavailable MERZABARBRA Referring Unavailable FABIAN MORFIN Attending Unavailable RAUL LOPEZ Attending Unavailable GRAEME CR Referring Unavailable JESSICA, RAUL W Attending Unavailable JESSICA, RAUL W Attending Unavailable JESSICA, RAUL W Attending Unavailable Allergies Allergy Classification Reported Allergen(s) Allergy Type Date of Onset Reaction(s) Facility (2 sources) dapagliflozin; Translations: [DAPAGLIFLOZIN] Drug Allergy 06-13-2023 [facility] Repository Medications Current Medications Medication Drug Class(es) Dates Sig (Normalized) Sig (Original) acetaminophen 500 mg oral tablet (3 sources) Start: 4 take 2 tablets by mouth every six hours Acetaminophen (Acetaminophen Extra Strength) 500 mg tablet Active 1000 MG PO Every 6 hours 2023 12:00am Albuterol (3 sources) beta2-Adrenergi c Agonist Start: 4 take 90 ug by inhalation every four to six hours Albuterol Active 90 MCG INHALATION .q4-6 hour 2023 12:00am apixaban 5 mg oral tablet (3 sources) Factor Xa Inhibitor Start: 4 take 1 tablet by mouth twice daily Apixaban (Eliquis) 5 mg tablet Active 5 MG PO Twice daily 2023 12:00am atorvastatin 40 mg oral tablet (3 sources) HMG-CoA Reductase Inhibitor Start: 4 take 40 mg by mouth once daily at bedtime Atorvastatin Active 40 MG PO Daily at bedtime 2023 12:00am busPIRone hydrochloride 15 mg oral tablet (3 sources) Start: 4 take 15 mg by mouth twice daily Buspirone Active 15 MG PO Twice daily 2023 12:00am citalopram 20 mg oral tablet (3 sources) Serotonin Reuptake Inhibitor Start: 4 take 20 mg by mouth once daily in the morning Citalopram Active 20 MG PO Every morning 2023 12:00am hydroCHLOROthiazide 12.5 mg oral tablet (3 sources) Thiazide Diuretic Start: 4 take 12.5 mg by mouth once daily in the morning Hydrochlorothiazide Active 12.5 MG PO Every morning 2023 12:00am losartan potassium 25 mg oral tablet (3 sources) Angiotensin 2 Receptor Ray Start: 4 take 25 mg by mouth once daily in the morning Losartan Active 25 MG PO Every morning 2023 12:00am potassium 75 mg oral tablet (3 sources) Start: 4 take 75 mg by mouth once daily Potassium Active 75 MG PO Daily 2023 12:00am OTC per patient Completed/Discontinued Medications Medication Drug Class(es) Dates Sig (Normalized) Sig (Original) methIMAzole 10 mg oral tablet (3 sources) Thyroid Hormone Synthesis Inhibitor Start: 2023 End: 08-23-2023 take 10 mg by mouth twice daily Methimazole Discontinued 10 MG PO Twice daily 2023 12:00am August 23, 2023 10:45am metoprolol tartrate 50 mg oral tablet (3 sources) beta-Adrenergic Ray Start: 2023 End: 08-23-2023 [...] 09-15-2022 Episodic Other aftercare (1 source) Other fdc (current) drug therapy; Translations: [OTH SHINGLE CUTTER CURRENT DRUG THERAPY] Onset: 10-12-2022 Episodic Other [...] Test Name Value Interpretation Reference Range Facility Thyrotropin [Units/volume] i n Serum or PlasmaOrdered By: Raul Lopez on 10-12-2023 TSH Qn 0.02 m[IU]/L 0.45-5.33 [facility] Thyroxine (T4) [Mass/volume] in Serum or PlasmaOrdered By: Raul Lopez on 10-12-2023 T4 [Mass/Vol] 12.41 ug/dL 5.39-11.82 [facility] Triiodothyronine (T3) [Mass/ volume] in Serum or PlasmaOrdered By: Raul Lopez on 10-12-2023 T3 [Mass/Vol] 0.99 ng/mL 0.87-1.78 [facility] Abstracton 10-04-2023 Abstract [id number] Shahida Mejia 1970 F Provider Department Center 10/04/2023 [id number], [facility] C[facility] [place] [facility] Family History Problem Relation Age of Onset Other Mother Coronary artery disease Father Other Father Family Status - Relation Status Age at Mother Father [facility] Orders Onlyon 09-27-2023 Orders Only [id number] Shahida Mejia 1970 Provider Department Center 09/27/2023 ATA BOTELLO [facility] [place] [facility] Family History Problem Relation Age of Onset Other Mother Coronary artery disease Father Other Father Family Status - Relation Status Age at Mother Father [facility] Telemedicineon 09-13-2023 Telemedicine [id number] Shahida Mejia 1970 F Date Provider Department Center 09/13/2023 FABIAN DALEY [facility] CARD [place] [facility] Family History Problem Relation Age of Onset Other Mother Coronary artery disease Father Other Father Family Status - Relation Status Age at Mother Father Level of Service:89338 [place] PHYS/QHP TELEPHONE EVALUATION 5-10 MIN Reason for Visit and Comments: Palpitations [365803] - Discuss icd [facility] Office Visiton 08-29-2023 Follow-up visit [id number] Shahida Mejia 1970 F Date Provider Department Center 08/29/2023 THUY FABIAN CARD [facility] Family History Problem Relation Age of Onset Other Mother Coronary artery disease Father Other Father Family Status - Relation Status Age at Mother Father Level of Service:13987 [place] OFFICE/OUTPATIENT ESTABLISHED LOW MDM 20 MIN [facility] Amphetamine Screen Ql (U)Ord ered By: Camacho Metz on 08-23-2023 Amphetamines Ql (U) Negative Negative [facility] Barbiturates [Presence] in U rine by Screen methodOrdered By: Camacho Metz on 08-23-2023 Barbiturates Screen Ql (U) Negative Negative [facility] Benzodiazepines Screen Ql (U )Ordered By: Camacho Metz on 08-23-2023 Benzodiazepines Ql (U) Negative Negative [facility] Benzoylecgonine [Presence] i n Urine by Screen methodOrdered By: Camacho Metz on 08-23-2023 Benzoylecgonine Screen Ql (U) Negative Negative [facility] Calciumon 08-23-2023 Calcium [Mass/Vol] 8.9 mg/dL Normal 8.6-10.3 [facility] Comment on above: Result Comment: PERF ORMED BY: [facility] [address] [place] [address] PATHOLOGIST PRINCIPAL HARDWARE ARCHITECT RONDA LEYVA M.D. Performed By: #### C A, PTH #### [facility] [address] Calcium [Mass/volume] in Ser um or PlasmaOrdered By: Raul Lopez on 08-23-2023 Calcium [Mass/Vol] 8.9 mg/dL 8.6-10.3 [facility] Cannabinoids [Presence] in U rine by Screen methodOrdered By: Camacho Metz on 08-23-2023 Cannabinoids Screen Ql (U) Positive Negative [facility] Comment on above: These are unconfirme d results and should not be used for legal purposes. Drug Cut-Off Concentration: AMPH 1000 ng/mL GRACIELA 200 ng/mL ED 200 ng/mL COCM 300 ng/mL OP 300 ng/mL PCP 25 ng/mL THC 20 ng/mL Drug Screen,Urineon 08-23-19 24 Amphetamine Screen,Urine Negative Normal Negative [facility] Comment on above: Performed By: #### U RDS #### [address] Barbiturate Screen,Urine Negative Normal Negative [facility] Comment on above: Performed By: #### U RDS #### [address] Benzodiazepines Screen,Urine Negative Normal Negative [facility] Comment on above: Performed By: #### U RDS #### [address] Cannabinoid Screen,Urine Positive High Negative [facility] Comment on above: Result Comment: Thes e are unconfirmed results and should not be used for legal purposes. Drug Cut-Off Concentration: AMPH 1000 ng/mL GRACIELA 200 ng/mL ED 200 ng/mL COCM 300 ng/mL OP 300 ng/mL PCP 25 ng/mL THC 20 ng/mL PERFORMED BY: [place] [address] PATHOLOGIST PRINCIPAL HARDWARE ARCHITECT RONDA LEYVA M.D. Performed By: #### U RDS #### [place] [address] [place] Cocaine Screen,Urine Negative Normal Negative [facility] Comment on above: Performed By: #### U RDS #### [place] [address] [place] Opiate Screen,Urine Negative Normal Negative [facility] Comment on above: Performed By: #### U RDS #### [place] [address] [place] Phencyclidine Screen,Urine Negative Normal Negative [facility] Comment on above: Performed By: #### U RDS #### [facility] [address] [id number] RUST Hank 08-23-2023 L Specimen: Received: 08/23/23 Status: LUCYChristina Gallardo Num: [id number] Spec Type: Surgical Subm Dr: Raul Lopez DO Tissues: A THYROID - Lobe (RT LOBE/ISTHMUS) B THYROID - Lobe (LT LOBE) Procedures: HE/10, Gross/Micro L5/2 Age/ Patient Sex Location Account Attending Physician Shahida Mejia 53/F [place] [id number] Raul Lopez DO SPEC NUM: RECD: 08/23/23 STATUS: OWEN BRUCE NUM: [id number] PATRICK: 08/23/[address]: Raul Lopez DO ENTERED: 08/23/23 [facility] DR: SPEC TYPE: Surgical DEPT: S ORDERED: [...] to inferior to reveal no mass lesions. Profiling Machine Setup Operator sections are submitted in A1?A5. B.) In [...] to inferior to reveal no mass lesions. Profiling Machine Setup Operator sections are submitted in B1?B5. RG Clinical history: Graves' disease -------- Specimen: Received: 08/23/23 Status: OWEN Gallardo Num: [id number] Spec Type: Surgical Subm Dr: Raul Lopez DO Tissues: A THYROID - Lobe (RT LOBE/ISTHMUS) B THYROID - Lobe (LT LOBE) Procedures: , Gross/Micro / -------- Patient: Shahida Mejia [id number] (Continued) -------- Specimen: Received: 08/23/23 (Continued) Signed (signature on file) Godfrey Krueger MD 08/29/23 1243 -------- Specimen: Received: 08/23/23 Status: OWEN Gallardo Num: [id number] Spec Type: Surgical Subm Dr: Raul Lopez DO Tissues: A THYROID - Lobe (RT LOBE/ISTHMUS) B THYROID - Lobe (LT LOBE) Procedures: , Gross/Micro /2 -------- Patient: MejiaShahida [id number] (Continued) -------- Specimen: Received: 08/23/23 (Continued) CPT Codes 75121j3 -------- -------- Specimen: [id number] Received: 08/23/23-1110 Status: OWEN Gallardo Num: [id number] Spec Type: Surgical Subm Dr: Raul Lopez DO Tissues: A THYROID - Lobe (RT LOBE/ISTHMUS) B THYROID - Lobe (LT LOBE) Procedures: , Gross/Micro L5/2 -------- Patient: Shahida Mejia [id number] (Continued) -------- Signed (signature on file) Godfrey Krueger MD 08/29/23 1243 Normal [facility] Opiates [Presence] in Urine by Screen methodOrdered By: Camacho Metz on 08-23-2023 Opiates Screen Ql (U) Negative Negative [facility] Parathyrin.intact [Mass/volu me] in Serum or PlasmaOrdered By: Raul Lopez on 08-23-2023 Parathyrin.intact [Mass/Vol] 20.0 pg/mL [facility] Parathyroid Hormone Intacton 08-23-2023 Parathyroid Hormone Intact 20.0 pg/mL Normal [facility] Comment on above: Order Comment: Comme nt Call to Dr. Lopez Result Comment: PERF ORMED BY: [facility] [address] PATHOLOGIST PRINCIPAL HARDWARE ARCHITECT RONDA LEYVA M.D. Performed By: #### C A, PTH #### [address] Phencyclidine Screen Ql (U)O rdered By: Camacho Metz on 08-23-2023 Phencyclidine Ql (U) Negative Negative [facility] Letter (Out)on 08-22-2023 Letter (Out) [id number] Shahida Mejia 1970 F Date Provider Department Center 08/22/2023 BinhTrishaFABIAN MORFIN [facility] CARD Adame Count Family History Problem Relation Age of Onset Other Mother Coronary artery disease Father Other Father Family Status - Relation Status Age at Mother Father [facility] Basic Metabolic Panelon Anion gap [Moles/Vol] 19.0 mmol/L High 6.0-15.0 [facility] Comment on above: Performed By: #### B MP #### [address] Calcium [Mass/Vol] 9.7 mg/dL Normal 8.6-10.3 [facility] Comment on above: Result Comment: PERF ORMED BY: [place] [address] PATHOLOGIST PRINCIPAL HARDWARE ARCHITECT RONDA LEYVA M.D. Performed By: #### B MP #### [place] [address] [place] Chloride [Moles/Vol] 101 mmol/L Normal 98-107 [facility] Comment on above: Performed By: #### B MP #### [place] [address] [place] CO2 [Moles/Vol] 28.5 mmol/L Normal 21.0-31.0 [facility] Comment on above: Performed By: #### B MP #### [place] [address] [place] Creatinine [Mass/Vol] 1.20 mg/dL Normal 0.60-1.20 [facility] Comment on above: Performed By: #### B MP #### [facility] [address] [place] [address] [place] GFR/1.73 sq M.predicted MDRD (S/P/Bld) [Vol rate/Area] 54.127 mL/min/{1.73_m2} Normal [facility] Comment on above: Performed By: #### B MP #### [place] [address] [place] Glucose [Mass/Vol] 48 mg/dL Off scale low 70-100 [facility] Comment on above: Result Comment: Crit ical Result Called to and read back by: SEBASTIÁN FERGUSON at: 2023 13:13:02 by:[id number] Random Glucose Reference Range is dependent on time and content of last meal. Glucose of more than 200 mg/dL in a nonstressed, ambulatory subject supports the diagnosis of Diabetes Mellitus. ADA recommended reference range Performed By: #### B MP #### [address] Potassium [Moles/Vol] 3.5 mmol/L Normal 3.5-5.1 [facility] Comment on above: Performed By: #### B MP #### [address] Sodium [Moles/Vol] 145 mmol/L Normal 136-145 [facility] Comment on above: Performed By: #### B MP #### [place] [address] [place] Urea nitrogen [Mass/Vol] 17 mg/dL Normal 7-25 [facility] Comment on above: Performed By: #### B MP #### [place] [address] [place] Calcium [Mass/volume] in Ser um or PlasmaOrdered By: Raul Lopez on 2023 Calcium [Mass/Vol] 9.7 mg/dL 8.6-10.3 [facility] Carbon dioxide, total [Moles /volume] in Serum or PlasmaOrdered By: Raul Lopez on 2023 CO2 [Moles/Vol] 28.5 mmol/L 21.0-31.0 [facility] Chloride [Moles/volume] in S mona or PlasmaOrdered By: Raul Lopez on 2023 Chloride [Moles/Vol] 101 mmol/L 98-107 [facility] Creatinine [Mass/volume] in Serum or PlasmaOrdered By: Raul Lopez on 2023 Creatinine [Mass/Vol] 1.20 mg/dL 0.60-1.20 [facility] ECG 12 lead ECGon 2023 ECG 12 lead ECG [facility] [place] [address] Electrocardiograph Report Signed Patient: Shahida Mejia MR#: [id number] 6 : 1970 Acct:[id number] Age/Sex: 52 / F ADM Date: 08/16/23 Loc: Room: Type: [facility] Attending Dr: Raul Lopez DO Ordering Provider: [...] previous ECGs available Confirmed by [facility]ANITA [facility] ([id number][facility] on 08/17/2023 2:54:25 PM Referred By: JESSICA Electronically Signed By:DANIEL GRANT MD [facility] Transcribed By: MUS Signed By Daniel Grant MD, [facility] 08/17/23 8902 Normal [facility] Glucose [Mass/volume] in Ser um or PlasmaOrdered By: Raul Lopez on 2023 Glucose [Mass/Vol] 48 mg/dL 70-100 [facility] Comment on above: Critical Result Call ed to and read back by: SEBASTIÁN FERGUSON at: 2023 13:13:02 by:[id number] recommended reference rangeRandom Glucose Reference Range is dependent on time and content of last meal. Glucose of more than 200 mg/dL in a nonstressed, ambulatory subject supports the diagnosis of Diabetes Mellitus. No Panel InformationOrdered By: Raul Lopez on 2023 Estimated GFR (CKD-EPI) 54.127 mL/Min [facility] Creatinine Clearance (Chem N/A [facility] Potassium [Moles/volume] in Serum or PlasmaOrdered By: Raul Lopez on 2023 Potassium [Moles/Vol] 3.5 mmol/L 3.5-5.1 [facility] Serum or plasma anion gap de terminationOrdered By: Raul Lopez on 2023 Anion gap [Moles/Vol] 19.0 mmol/L 6.0-15.0 [facility] Sodium [Moles/volume] in Ser um or PlasmaOrdered By: Raul Lopez on 2023 Sodium [Moles/Vol] 145 mmol/L 136-145 [facility] Urea nitrogen [Mass/volume] in Serum or PlasmaOrdered By: Raul Lopez on 2023 Urea nitrogen [Mass/Vol] 17 mg/dL 7-25 [facility] 07-13-2023 36 Received fax notification of 6.19 second pause on her event monitor - occurring at 2:39am on 07/13/2023. Report emailed to Cholo Cruz and Dr. Morfin. Report scanned into patient's digital media planner. [facility] 07-11-2023 36 I spoke her endocrinology office yesterday and they told me patient could have thyroid radiation at [facility]. I advised patient yesterday to call [facility] and get scheduled. She calls me back today and says [facility] won't do it now. I confirmed this just now with endocrinology office. She told me Shahida has apt next Monday, 07/20 to discuss radiation in [place] or thyroidectomy. JOANI [facility] 07-05-2023 36 Thank you! [facility] 36 I looked on patient' s daily logs from her event monitor. It has shown no pauses or events since the 5.38 second pause on 06/26/23. I called Shahida and she said she's felt better this past week. She said her insole toe snipping machine operator is referring her to another specialist who manages the surgery and the pill . She is still waiting to hear from the other doctor's office, and has made endocrine aware that she's still waiting. I left a message for insole toe snipping machine operator's office to return my call to hopefully get this referral process going. [facility] 36on 07-04-2023 36 Can we please follow up with the insole toe snipping machine operator to get input on where she is at regarding thyroid levels / management and what their plan of action is , needs to be as aggressively managed as able d/t these significant pauses , they have slowly increased from mostly being 3 seconds to now 4-5 seconds each time [facility] 36on 06-29-2023 36 Regarding 5 second pause on event monitor, which is scanned into digital media planner. JOSR Wagner MD; Gail Burnett MA I believe patient has had meds adjusted 5 second pause , at what point do we say PPM? Just looking for some guidance [facility] Telephoneon 06-29-2023 Telephone [id number] RobertoShahida 1970 F Date Provider Department Center 06/29/2023 Binh-FABIAN MORFIN CARD [facility] Family History Problem Relation Age of Onset Other Mother Coronary artery disease Father Other Father Family Status - Relation Status Age at Mother Father [facility] 36on 06-15-2023 36 The office received serious [...] from us yet. Patient verbalized understanding. [facility] Office Visiton 06-13-2023 Follow-up visit [id number] Shahida Mjeia 1970 F Date Provider Department Center 06/13/2023 1596-CHOLO CRUZ BH CARD [facility] Family History Problem Relation Age of Onset Other Mother Coronary artery disease Father Other Father Family Status - Relation Status Age at Mother Father Level of Service:41841 [place] OFFICE/OUTPATIENT ESTABLISHED MOD MDM 30 MIN [facility] 30on 05-26-2023 30 The patient is Moderately Stable - Low risk of patient condition declining or worsening The patient's goals for the shift include comfort The clinical goals for the shift include vss Over the shift, the patient did not make progress toward the following goals. Barriers to progression include . Recommendations to address these barriers include . [facility] ANTI-XA (HEPARIN LEVEL)on HEPARIN UNFRACTIONATED (U/ML) IN PPP BY CHROMOGENIC METHOD 0.56 IU/mL Normal 0.3-0.7 [facility] Comment on above: Order Comment: Check anti-Xa level every 6 hours while on heparin infusion, or per protocol. Result Comment: Celeste roxaban and Apixaban will interfere with the anti Xa assay used to monitor UFH and LMWH. Performed By: #### L [id number] ####[facility] ([facility])[address] [place] [address] HEPARIN UNFRACTIONATED (U/ML) IN PPP BY CHROMOGENIC METHOD 0.71 IU/mL High 0.3-0.7 [facility] Comment on above: Result Comment: Celeste roxaban and Apixaban will interfere with the anti Xa assay used to monitor UFH and LMWH. Performed By: #### L [id number] ####[facility] ([facility])[address] [place] [address] APTTon 05-26-2023 ACTIVATED PARTIAL THROMBOPLASTIN TIME IN PPP BY COAGULATION ASSAY 85.5 Seconds High 25.0-35.0 [facility] Comment on above: Result Comment: Clin ical significance of the APTT is questionable in the presence of heparin. Performed By: #### L [id number] #### [facility] ([facility]) [address] [place] [address] BASIC METABOLIC PANELon 05-15 Anion gap [Moles/Vol] 12 mmol/L Normal 7-20 [facility] Comment on above: Performed By: #### L AB15 ####[facility] ([facility])[address] [place] [address] Calcium [Mass/Vol] 9.8 mg/dL Normal 8.6-10.3 [facility] Comment on above: Performed By: #### L AB15 ####[facility] ([facility])[address] [place] [address] Chloride [Moles/Vol] 108 mmol/L High 98-107 [facility] Comment on above: Performed By: #### L AB15 ####[facility] ([facility])[address] [place] [address] CO2 [Moles/Vol] 23 mmol/L Normal 21-31 [facility] Comment on above: Performed By: #### L AB15 ####[facility] ([facility])[address] [place] [address] Creatinine [Mass/Vol] 0.85 mg/dL Normal 0.60-1.20 [facility] Comment on above: Performed By: #### L AB15 ####[facility] ([facility])[address] [place] [address] GLOMERULAR FILTRATION RATE ML/MIN/1.73 SQ M.PREDICTED 81.9 mL/min/1.73m*2 Normal >60.0 [facility] Comment on above: Result Comment: [facility]???s estimated glomerular filtration rate (eGFR) will [...] of individuals. Performed By: #### L [id number] ####[facility] ([facility])[address] [place] [address] Glucose [Mass/Vol] 85 mg/dL Normal 70-100 [facility] Comment on above: Performed By: #### L [id number] ####[facility] ([facility])[address] [place] [address] Potassium [Moles/Vol] 4.1 mmol/L Normal 3.5-5.1 [facility] Comment on above: Performed By: #### L [id number] ####[facility] ([facility])[address] [place] [address] Sodium [Moles/Vol] 139 mmol/L Normal 136-145 [facility] Comment on above: Performed By: #### L [id number] ####[facility] ([facility])[address] [place] [address] Urea nitrogen [Mass/Vol] 18 mg/dL Normal 7-25 [facility] Comment on above: Performed By: #### L [id number] ####[facility] ([facility])[address] [place] [address] UREA NITROGEN/CREATININE (MASS RATIO) IN SER/PLAS 21.2 Normal [facility] Comment on above: Performed By: #### L [id number] ####[facility] ([facility])[address] [place] [address] CONSULTon 05-26-2023 CONSULT - Attestation signed by [...] be an additional personal documentation from me. [place] Electrophysiology Consult Note Reason for Consult: Sinus [...] to have atrial flutter since August on at home. The patient states she is [...] Abnormal ECG, Arrhythmia, CHF (congestive heart failure) (CMS/HCC), COPD (chronic obstructive pulmonary disease) (CMS/HCC), Hypertension, [...] Value Ventricular Rate 62 Atrial Rate 62 LA Interval 174 QRS DURATION 90 QT Interval 440 QTC CALCULATION(BAZETT) 446 P [place] 36 R-[place] 53 T Wave [place] 69 Impression Normal sinus rhythm Normal ECG No previous ECGs available Confirmed by Fabian Morfin ([id number]) on 05/25/2023 8:31:53 PM Lab Results Component Value Date TROPONINI 0. (more content not included)... Normal [facility] DSon 05-26-2023 DS - Attestation signed [...] Diagnosis: Atrial fibrillation with rapid ventricular response ([facility]) [I48.91] Hospital course: Shahida Mejia is an 52 y.o. female who came from [facility] with multiple complaints. Patient was seen in [...] scheduled for November 06, 2023 with the [facility] cardiology service as they have been managing her atrial fibrillation/flutter, CAD and heart failure with preserved ejection fraction. Cardiac history is also notable for sinus pauses and nonsustained V. tach. Patient does have history of hyperthyroidism and takes methimazole, with recent change in February or March from her insole toe snipping machine operator. Patient's heart rate stabilized after electrolyte abnormalities have resolved, continues to have some pauses but only as long as 3 seconds. She was evaluated by cardiology, no current need for pacemaker placement or heart cath at this time. She was discharged and encouraged to follow-up closely with her insole toe snipping machine operator on further adjustment of her medication. Dear Dr. Santino MD, Shahida is advised to follow up with you within 1-2 weeks. Follow-up with: Cardiology and Endocrine Scheduled appointments: Future Appointments Date Time Provider Department Center 06/13/2023 3:40 PM Cholo Crzu NP [facility] Your medication list [...] 132* MAGNESIUM mg/dL (more content not included)... [facility] MAGNESIUMon 05-26-2023 Magnesium [Mass/Vol] 1.6 mg/dL Low 1.9-2.7 [facility] Comment on above: Performed By: #### L [id number] #### [facility] ([facility]) [address] [place] [address] 30on 05-25-2023 30 The patient is Moderately Stable - Low risk of patient condition declining or worsening The patient's goals for the shift include comfort The clinical goals for the shift include VSS; safety Over the shift, the patient did not make progress toward the following goals. Barriers to progression include dizziness. Recommendations to address these barriers include SBA with ambulating. Normal [facility] 30 Daily Case Managemen t Update Multidisciplinary rounds have been completed. Barriers to Discharge: Pending clinical course and improvement in clinical condition. Patient was transferred from [facility] with paroxysmal a-fib/flutter w/ RVR, nonsustained VT's, [...] Consultation Consultation and Management 05/25/23 1245 Normal [facility] 30 Problem: Pain - Adul t [...] and behaviors that affect risk of falls [place] fall precautions as indicated by assessment Educate [...] maintained or improved Outcome: Progressing Flowsheets (Taken 05/25/2023 0810) Care Plan - Patient's Chronic Conditions and [...] and acti (more content not included)... Normal [facility] 30 The patient is Moderately Stable - Low risk of patient condition declining or worsening The patient's goals for the shift include comfort The clinical goals for the shift include vss Over the shift, the patient did not make progress toward the following goals. Barriers to progression include hypokalemia. Recommendations to address these barriers include oral K. Normal [facility] APTTon 05-25-2023 ACTIVATED PARTIAL THROMBOPLASTIN TIME IN PPP BY COAGULATION ASSAY 86.2 Seconds High 25.0-35.0 [facility] Comment on above: Result Comment: Clin ical significance of the APTT is questionable in the presence of heparin. Performed By: #### L [id number] #### [facility] ([facility]) [address] [place] [address] ACTIVATED PARTIAL THROMBOPLASTIN TIME IN PPP BY COAGULATION ASSAY 100.9 Seconds High 25.0-35.0 [facility] Comment on above: Result Comment: Clin ical significance of the APTT is questionable in the presence of heparin. Performed By: #### L [id number] ####[facility] ([facility])[address] [place] [address] ACTIVATED PARTIAL THROMBOPLASTIN TIME IN PPP BY COAGULATION ASSAY 175.6 Seconds Critically high 25.0-35.0 [facility] Comment on above: Order Comment: Check aPTT every 6 hours while on heparin infusion, or per protocol. Result Comment: Clin ical significance of the APTT is questionable in the presence of heparin. Performed By: #### L [id number] ####[facility] ([facility])[address] [place] [address] BASIC METABOLIC PANELon 05-15 Anion gap [Moles/Vol] 8 mmol/L Normal 7-20 [facility] Comment on above: Performed By: #### L [id number] #### [facility] ([facility]) [address] [place] [address] Calcium [Mass/Vol] 9.5 mg/dL Normal 8.6-10.3 [facility] Comment on above: Performed By: #### L [id number] #### [facility] ([facility]) [address] [place] [address] Chloride [Moles/Vol] 112 mmol/L High 98-107 [facility] Comment on above: Performed By: #### L [id number] #### [facility] ([facility]) [address] [place] [address] CO2 [Moles/Vol] 25 mmol/L Normal 21-31 [facility] Comment on above: Performed By: #### L [id number] #### [facility] ([facility]) [address] [address] Creatinine [Mass/Vol] 0.80 mg/dL Normal 0.60-1.20 [facility] Comment on above: Performed By: #### L [id number] #### [facility] ([facility]) [address] [place] [address] GLOMERULAR FILTRATION RATE ML/MIN/1.73 SQ M.PREDICTED 88.0 mL/min/1.73m*2 Normal >60.0 [facility] Comment on above: Result Comment: [facility]???s estimated glomerular filtration rate (eGFR) will [...] individuals. Performed By: #### L [id number] #### [facility] ([facility]) [address] [address] Glucose [Mass/Vol] 97 mg/dL Normal 70-100 [facility] Comment on above: Performed By: #### L [id number] #### [facility] ([facility]) [address] [place] [address] Potassium [Moles/Vol] 4.4 mmol/L Normal 3.5-5.1 [facility] Comment on above: Performed By: #### L [id number] #### [facility] ([facility]) [address] [place] [address] Sodium [Moles/Vol] 141 mmol/L Normal 136-145 [facility] Comment on above: Performed By: #### L [id number] #### [facility] ([facility]) [address] [place] [address] Urea nitrogen [Mass/Vol] 19 mg/dL Normal 7-25 [facility] Comment on above: Performed By: #### L [id number] #### [facility] ([facility]) [address] [place] [address] UREA NITROGEN/CREATININE (MASS RATIO) IN SER/PLAS 23.8 Normal [facility] Comment on above: Performed By: #### L [id number] #### [facility] ([facility]) [address] [place] [address] CBCon 05-25-2023 Erythrocyte distribution width (RBC) [Ratio] 15.4 % High 11.5-15.0 [facility] Comment on above: Performed By: #### L [id number] #### [facility] ([facility]) [address] [place] [address] ERYTHROCYTE MEAN CORPUSCULAR HEMOGLOBIN CONCENTRATION (G/DL) BY AUTOMATED 31.9 g/dL Low 32.0-35.0 [facility] Comment on above: Performed By: #### L [id number] #### [facility] ([facility]) [address] [place] [address] Hematocrit (Bld) [Volume fraction] 32.9 % Low 36.0-48.0 [facility] Comment on above: Performed By: #### L [id number] #### [facility] [address] [place] [address] Hemoglobin (Bld) [Mass/Vol] 10.5 g/dL Low 12.0-15.0 [facility] Comment on above: Performed By: #### L [id number] #### [facility] [address] [address] MCH (RBC) [Entitic mass] 26.1 pg Low 27.0-33.0 [facility] Comment on above: Performed By: #### L [id number] #### [facility] ([facility]) [address] [address] MCV (RBC) [Entitic vol] 81.6 fL Low 82.0-98.0 [facility] Comment on above: Performed By: #### L [id number] #### [facility] ([facility]) [address] [place] [address] PLATELETS (10*3/UL) IN BLOOD AUTOMATED COUNT 213 10*3/uL Normal 150-400 [facility] Comment on above: Performed By: #### L [id number] #### [facility] ([facility]) [address] [place] [address] RBC (Bld) [#/Vol] 4.03 10*6/uL Normal 3.80-5.00 [facility] Comment on above: Performed By: #### L [id number] #### [facility] ([facility]) [address] [place] [address] WBC (Bld) [#/Vol] 5.38 10*3/uL Normal 4.00-10.60 [facility] Comment on above: Performed By: #### L [id number] #### [facility] ([facility]) [address] [place] [address] CONSULTon 05-25-2023 CONSULT - Attestation signed by Perla Esquivel MD at 05/25/2023 3:40 PM I personally saw and examined the patient on the same date of service as resident/fellow Dr Marley. I discussed the findings and therapeutic plan with the resident/fellow Dr Marley. I agree with the documentation, except for any edits/updates below. Teaching Physician's Revisions: Perla Esquivel MD, MPH, [facility], [facility], [facility] Interventional Cardiology Pager Email: [email or web address] Cardiology Consult Note Reason for Consult: Chest pain and shortness of breath HPI: Shahida Mejia is a 52 y.o. female with medical history of heart failure with preserved ejection fraction, COPD, hypertension, nonsustained ventricular tachycardia seen on event monitor, frequent sinus pauses, who came to the hospital as a transfer from [facility] due to chest pain. Patient reports she [...] Abnormal ECG, Arrhythmia, CHF (congestive heart failure) ([facility]), COPD (chronic obstructive pulmonary disease) ([facility]), Hypertension, and NSVT (nonsustained ventricular tachycardia) ([facility]). Surgical History She has a past surgical [...] -- 49 kg (108 lb 0.4 oz) 05/24/232351 115/86 36.7 ???C (98 ???F) Oral 86 [...] results found. (more content not included)... Normal [facility] MAGNESIUMon 05-25-2023 Magnesium [Mass/Vol] 2.1 mg/dL Normal 1.9-2.7 [facility] Comment on above: Performed By: #### L [id number] #### [facility] ([facility]) [address] [place] [address] T3on 05-25-2023 TRIIODOTHYRONINE (T3) (NG/DL) IN SER/PLAS 247 ng/dL High 80-200 [facility] Comment on above: Result Comment: REFE RENCE INTERVAL: Triiodothyronine, Total (Total T3) Access complete set of age- and/or gender-specific reference intervals for this test in the [facility] ([employer] Performed By: [employer] [address] [place] [address] Tattoo And Body Artist: Roman Romo MD, PhD CLIA Number: [id number] Performed By: #### L [id number] ####[facility] ([facility])[address] [place] [address] T3, FREEon 05-25-2023 TRIIODOTHYRONINE (T3) FREE (PG/ML) IN SER/PLAS 3.8 pg/mL Normal 2.5-3.9 [facility] Comment on above: Performed By: #### L [id number] #### [facility] ([facility]) [address] [place] [address] T4, FREEon 05-25-2023 THYROXINE (T4) FREE (NG/DL) IN SER/PLAS 0.70 ng/dL Low 0.71-1.85 [facility] Comment on above: Performed By: #### L [id number] #### [facility] ([facility]) [address] [place] [address] THYROID STIMULATING IMMUNOGL OBULINon 05-25-2023 THYROID STIMULATING IMMUNOGLOBULIN >40.00 High <=0.54 [facility] Comment on above: Result Comment: INTE [...] medical history, and other findings. Performed By: [employer] [address] [place] [id number] [employer]too And [employer] Artist: Roman Romo MD, PhD CLIA Number: [id number] Performed By: #### L [id number] ####[facility] ([facility])[address] [place] [address] TROPONIN Ion 05-25-2023 Troponin I.cardiac [Mass/Vol] 0.01 ng/mL Normal 0.00-0.04 [facility] Comment on above: Performed By: #### L [id number] #### [facility] ([facility] [address] [place] [address] Troponin I.cardiac [Mass/Vol] 0.01 ng/mL Normal 0.00-0.04 [facility] Comment on above: Performed By: #### L [id number] #### [facility] ([facility]) [address] [place] [address] TSH RECEPTOR ANTIBODYon 05-15 TSH RECEPTOR ANTIBODY 23.70 IU/L High <=1.75 [facility] Comment on above: Result Comment: Perf ormed By: [employer] [address] [place] [address] Tattoo And Body Artist: Roman Romo MD, PhD CLIA Number: [id number] Performed By: #### L [id number] ####[facility] ([facility])[address] [place] [address] TSH3 REFLEX TO FT4on 024 THYROTROPIN (MIU/L) IN SER/PLAS BY DETECTION LIMIT <= 0.05 MIU/L <0.01 Low 0.34-5.60 [facility] Comment on above: Performed By: #### L [id number] #### [facility] ([facility]) [address] [place] [address] 30on 05-24-2023 30 The patient is Moderately Stable - Low risk of patient condition declining or worsening The patient's goals for the shift include comfort The clinical goals for the shift include vss Over the shift, the patient did not make progress toward the following goals. Barriers to progression include afib w/ rvr. Recommendations to address these barriers include medication compliance. Normal [facility] APTTon 05-24-2023 ACTIVATED PARTIAL THROMBOPLASTIN TIME IN PPP BY COAGULATION ASSAY 30.0 Seconds Normal 25.0-35.0 [facility] Comment on above: Result Comment: Clin ical significance of the APTT is questionable in the presence of heparin. Performed By: #### L [id number] #### [facility] ([facility]) [address] [place] [address] CBC WITH AUTO DIFFERENTIALon 05-24-2023 Basophils (Bld) [#/Vol] 0.01 10*3/uL Normal 0.00-0.20 [facility] Comment on above: Performed By: #### L [id number] ####[facility] ([facility])[address] [place] [address] Basophils/100 WBC (Bld) 0.2 % Normal 0.0-1.0 [facility] Comment on above: Performed By: #### L [id number] ####[facility] ([facility])[address] [place] [address] Eosinophils (Bld) [#/Vol] 0.03 10*3/uL Normal 0.00-0.50 [facility] Comment on above: Performed By: #### L [id number] ####[facility] ([facility])[address] [place] [address] Eosinophils/100 WBC (Bld) 0.6 % Normal 0.0-6.0 [facility] Comment on above: Performed By: #### L [id number] ####[facility] ([facility])[address] [place] [address] Erythrocyte distribution width (RBC) [Ratio] 15.4 % High 11.5-15.0 [facility] Comment on above: Performed By: #### L [id number] ####[facility] ([facility])[address] [place] [address] ERYTHROCYTE MEAN CORPUSCULAR HEMOGLOBIN CONCENTRATION (G/DL) BY AUTOMATED 32.7 g/dL Normal 32.0-35.0 [facility] Comment on above: Performed By: #### L [id number] ####[facility] ([facility])[address] [place] [address] Hematocrit (Bld) [Volume fraction] 33.3 % Low 36.0-48.0 [facility] Comment on above: Performed By: #### L [id number] ####[facility] [place] [address] Hemoglobin (Bld) [Mass/Vol] 10.9 g/dL Low 12.0-15.0 [facility] Comment on above: Performed By: #### L [id number] ####[facility] ([facility])[address] [place] [address] Immature granulocytes (Bld) [#/Vol] 0.01 10*3/uL Normal 0.00-0.20 [facility] Comment on above: Performed By: #### L [id number] ####[facility] ([facility])[address] [place] [address] Immature granulocytes/100 WBC (Bld) 0.2 % Normal 0.0-1.0 [facility] Comment on above: Performed By: #### L [id number] ####[facility] ([facility] [place] [address] Lymphocytes (Bld) [#/Vol] 2.12 10*3/uL Normal 1.20-4.00 [facility] Comment on above: Performed By: #### L [id number] ####[facility] ([facility])[address] [place] [address] Lymphocytes/100 WBC (Bld) 43.0 % Normal 20.0-45.0 [facility] Comment on above: Performed By: #### L [id number] ####[facility] ([facility])[address] [place] [address] MCH (RBC) [Entitic mass] 26.1 pg Low 27.0-33.0 [facility] Comment on above: Performed By: #### L [id number] ####[facility] [place] [address] MCV (RBC) [Entitic vol] 79.9 fL Low 82.0-98.0 [facility] Comment on above: Performed By: #### L [id number] ####[facility] ([facility] [place] [address] Monocytes (Bld) [#/Vol] 0.31 10*3/uL Normal 0.10-1.00 [facility] Comment on above: Performed By: #### L [id number] ####[facility] ([facility] [place] [address] Monocytes/100 WBC (Bld) 6.3 % Normal 5.0-12.0 [facility] Comment on above: Performed By: #### L [id number] ####[facility] ([facility])[address] [place] [address] Neutrophils (Bld) [#/Vol] 2.45 10*3/uL Normal 1.60-7.60 [facility] Comment on above: Performed By: #### L [id number] ####[facility] ([facility])[address] [place] [address] Neutrophils/100 WBC (Bld) 49.7 % Normal 40.0-72.0 [facility] Comment on above: Performed By: #### L [id number] ####[facility] ([facility])[address] [place] [address] NRBC (PER 100 WBCS) BY AUTOMATED COUNT 0.0 % Normal 0 [facility] Comment on above: Performed By: #### L [id number] ####[facility] ([facility])[address] [place] [address] PLATELETS (10*3/UL) IN BLOOD AUTOMATED COUNT 237 10*3/uL Normal 150-400 [facility] Comment on above: Performed By: #### L [id number] ####[facility] ([facility])[address] [place] [address] RBC (Bld) [#/Vol] 4.17 10*6/uL Normal 3.80-5.00 [facility] Comment on above: Performed By: #### L [id number] ####[facility] ([facility])[address] [place] [address] WBC (Bld) [#/Vol] 4.93 10*3/uL Normal 4.00-10.60 [facility] Comment on above: Performed By: #### L [id number] ####[facility] ([facility])[address] [place] [address] COMPREHENSIVE METABOLIC PANE Hank 05-24-2023 Albumin [Mass/Vol] 4.2 g/dL Normal 3.5-5.7 [facility] Comment on above: Performed By: #### L [id number] ####[facility] [place] [address] ALP [Catalytic activity/Vol] 149 U/L High 34-104 [facility] Comment on above: Performed By: #### L [id number] ####[facility] [place] [address] ALT [Catalytic activity/Vol] 25 U/L Normal 7-52 [facility] Comment on above: Performed By: #### L [id number] ####[facility] ([facility])[address] [place] [address] Anion gap [Moles/Vol] 8 mmol/L Normal 7-20 [facility] Comment on above: Performed By: #### L [id number] ####[facility] ([facility])[address] [place] [address] AST [Catalytic activity/Vol] 15 U/L Normal 13-39 [facility] Comment on above: Performed By: #### L [id number] ####[facility] ([facility])[address] [place] [address] Bilirubin [Mass/Vol] 0.4 mg/dL Normal 0.3-1.0 [facility] Comment on above: Performed By: #### L [id number] ####[facility] ([facility])[address] [place] [address] Calcium [Mass/Vol] 9.6 mg/dL Normal 8.6-10.3 [facility] Comment on above: Performed By: #### L [id number] ####[facility] [place] [address] Chloride [Moles/Vol] 111 mmol/L High 98-107 [facility] Comment on above: Performed By: #### L [id number] ####[facility] ([facility])[address] [place] [address] CO2 [Moles/Vol] 26 mmol/L Normal 21-31 [facility] Comment on above: Performed By: #### L [id number] ####[facility] [place] [address] Creatinine [Mass/Vol] 0.85 mg/dL Normal 0.60-1.20 [facility] Comment on above: Performed By: #### L [id number] ####[facility] ([facility])[address] [place] [address] GLOMERULAR FILTRATION RATE ML/MIN/1.73 SQ M.PREDICTED 81.9 mL/min/1.73m*2 Normal >60.0 [facility] Comment on above: Result Comment: [facility]???s estimated glomerular filtration rate (eGFR) will [...] of individuals. Performed By: #### L [id number] ####[facility] ([facility])[address] [place] [address] Glucose [Mass/Vol] 132 mg/dL High 70-100 [facility] Comment on above: Performed By: #### L [id number] ####[facility] ([facility])[address] [place] [address] Potassium [Moles/Vol] 3.3 mmol/L Low 3.5-5.1 [facility] Comment on above: Performed By: #### L [id number] ####[facility] ([facility])[address] [place] [address] Protein [Mass/Vol] 6.3 g/dL Normal 6.0-8.3 [facility] Comment on above: Performed By: #### L [id number] ####[facility] ([facility])[address] [place] [address] Sodium [Moles/Vol] 142 mmol/L Normal 136-145 [facility] Comment on above: Performed By: #### L AB17 ####[facility] ([facility])[address] [place] [address] Urea nitrogen [Mass/Vol] 22 mg/dL Normal 7-25 [facility] Comment on above: Performed By: #### L [id number] ####[facility] ([facility])[address] [place] [address] UREA NITROGEN/CREATININE (MASS RATIO) IN SER/PLAS 25.9 Normal [facility] Comment on above: Performed By: #### L AB17 ####[facility] ([facility])[address] [place] [address] LACTIC ACID WITH 4 HOUR REFL EXon 05-24-2023 LACTATE (MMOL/L) IN SER/PLAS 0.9 mmol/L Normal 0.5-2.2 [facility] Comment on above: Performed By: #### L [id number] #### [facility] ([facility]) [address] [place] [address] MAGNESIUMon 05-24-2023 Magnesium [Mass/Vol] 1.6 mg/dL Low 1.9-2.7 [facility] Comment on above: Performed By: #### L [id number] #### [facility] ([facility]) [address] [place] [address] PHOSPHORUSon 05-24-2023 Magnesium [Mass/Vol] 2.1 mg/dL Low 2.5-5.0 [facility] Comment on above: Performed By: #### L [id number] #### [facility] ([facility]) [address] [place] [address] PROTIME-INRon 05-24-2023 INR IN PPP BY COAGULATION ASSAY 1.19 High 0.90-1.10 [facility] Comment on above: Result Comment: [facility] P RECOMMENDED INR FOR WARFARIN THERAPY CONDITION [...] 1995;[id number]. Performed By: #### L [id number] #### [facility] ([facility]) [address] [place] [address] PROTHROMBIN TIME (PT) IN PPP BY COAGULATION ASSAY 15.1 Seconds High 12.3-14.8 [facility] Comment on above: Performed By: #### L [id number] #### [facility] ([facility]) [address] [place] [address] TROPONIN Ion 05-24-2023 Troponin I.cardiac [Mass/Vol] 0.01 ng/mL Normal 0.00-0.04 [facility] Comment on above: Performed By: #### L [id number] #### [facility] ([facility]) [address] [place] [address] Office Visiton 04-18-2023 Follow-up visit [id number] Shahida Mejia 1970 F Date Provider Department Center 04/18/2023 FABIAN DALEY SHASHANK [facility] Family History Problem Relation Age of Onset Other Mother Coronary artery disease Father Other Father Family Status - Relation Status Age at Mother Father Level of Service:50050 [place] OFFICE/OUTPATIENT ESTABLISHED MOD MDM 30-39 MIN Normal [facility] Orders Onlyon 04-18-2023 Orders Only [id number] Shahida Mejia 1970 Provider Department Center 04/18/2023 OTONIEL FOY CARD [facility] Family History Problem Relation Age of Onset Other Mother Coronary artery disease Father Other Father Family Status - Relation Status Age at Mother Father Normal [facility] Office Visiton 03-07-2023 Follow-up visit [id number] Yaw Mejianathalie Ny 1970 Date Provider Department Center 03/07/2023 Binh-FABIAN MORFIN CARD [facility] Family History Problem Relation Age of Onset Other Mother Coronary artery disease Father Other Father Family Status - Relation Status Age at Mother Father Level of Service:87689 LA OFFICE/OUTPATIENT NEW HIGH MDM 60-74 MINUTES Normal [facility] Office Visiton 01-09-2023 Follow-up visit [id number] Shahida Mejia 1970 Date Provider Department Center 01/09/2023 CHOLO THIBODEAUX SHASHANK [facility] No family history on file Level of Service:70839 LA OFFICE/OUTPATIENT ESTABLISHED MOD MDM 30-39 MIN Normal [facility] Office Visiton 11-25-2022 Follow-up visit [id number] Shahida Mejia 1970 Date Provider Department Center 11/25/2022 CHOLO THIBODEAUX SHASHANK [facility] No family history on file Level of Service:42673 LA OFFICE/OUTPATIENT ESTABLISHED MOD MDM 30-39 MIN [facility] 37on 10-28-2022 37 -Weigh yourself daily, if you gain more than 2 Ibs in one day or 5 Ibs in 1 week take Lasix for 3 days and let us know -Start Farxiga 10 mg daily -Stop taking Losartan-hydrochlorot hiazide -Start Losartan 100 mg daily -Check labs in 1 week after starting Farxiga Normal [facility] Office Visiton 10-28-2022 Follow-up visit [id number] Shahida Mejia 1970 Date Provider Department Center 10/28/2022 [id number] CLAROS SHASHANK [facility] No family history on file Level of Service:93806 LA OFFICE/OUTPATIENT ESTABLISHED MOD MDM 30-39 MIN Reason for Visit and Comments: New Patient [632] - New pt here for Hospital Follow up Holter motion results [facility] BNPon 10-09-2022 Natriuretic peptide B (Bld) [Mass/Vol] 43514.0 pg/mL Critically high <=900.0 [facility] Comment on above: Performed By: #### M G, BNP, CMP #### [facility] [address] [address] [address] Celina Venegas CBC AUTO DIFFon 10-09-2022 BASO # 0.0 103/ul Normal 0.0-0.1 [facility] Comment on above: Performed By: #### H STROPN #### [facility] [address] [address] [address] Celina Venegas Basophils/100 WBC (Bld) 0.1 % Critically low 0.2-2.0 [facility] Comment on above: Performed By: #### H STROPN #### [facility] [address] [place] [address] Dr. Celina Venegas EO # 0.0 103/ul Normal 0.0-0.7 [facility] Comment on above: Performed By: #### H STROPN #### [facility] [address] [address] [address] Celina Venegas Eosinophils/100 WBC (Bld) 0.1 % Critically low 0.9-7.0 [facility] Comment on above: Performed By: #### H STROPN #### [facility] [address] [place] [address] Dr. Celina Venegas Erythrocyte distribution width (RBC) [Ratio] 14.9 % Normal 11.0-15.0 [facility] Comment on above: Performed By: #### H STROPN #### [facility] [address] [place] [address] Dr. Celina Venegas Hematocrit (Bld) [Volume fraction] 28.5 % Critically low 36.0-48.0 [facility] Comment on above: Performed By: #### H STROPN #### [facility] [address] [place] [address] Dr. Celina Venegas Hemoglobin (Bld) [Mass/Vol] 9.1 g/dL Critically low 12.0-16.0 [facility] Comment on above: Performed By: #### H STROPN #### [facility] [address] [address] [address] Celina Venegas IG # 0.08 10e3/ul Critically high 0.00-0.03 [facility] Comment on above: Performed By: #### H STROPN #### [facility] [address] [address] [address] Celina Venegas IG % 1.2 % Critically high 0.0-0.5 [facility] Comment on above: Performed By: #### H STROPN #### [facility] [address] [address] [address] Celina Venegas LYMPH # 1.8 103/ul Normal 1.2-3.8 [facility] Comment on above: Performed By: #### H STROPN #### [facility] [address] [address] [address] Celina Venegas Lymphocytes/100 WBC (Bld) 26.7 % Normal 20.5-60.0 [facility] Comment on above: Performed By: #### H STROPN #### [facility] [address] [address] [address] Celina Venegas MANUAL DIFF REQ NO Normal [facility] Comment on above: Performed By: #### H STROPN #### [facility] [address] [address] [address] Celina Venegas MCH (RBC) [Entitic mass] 25.0 pg Critically low 26.7-34.0 [facility] Comment on above: Performed By: #### H STROPN #### [facility] [address] [address] [address] Celina Venegas MCHC (RBC) [Mass/Vol] 31.9 g/dL Normal 29.9-35.2 [facility] Comment on above: Performed By: #### H STROPN #### [facility] [address] [address] [address] Celina Venegas MCV (RBC) [Entitic vol] 78.3 fL Critically low 81.0-99. 0 [facility] Comment on above: Performed By: #### H STROPN #### [facility] [address] [address] [address] Celina Venegas MONO # 0.4 103/ul Normal 0.3-0.8 [facility] Comment on above: Performed By: #### H STROPN #### [facility] [address] [address] [address] Celina Venegas Monocytes/100 WBC (Bld) 5.5 % Normal 1.7-12.0 [facility] Comment on above: Performed By: #### H STROPN #### [facility] [address] [address] [address] Celina Venegas NEUT # 4.5 103/ul Normal 1.4-6.5 [facility] Comment on above: Performed By: #### H STROPN #### [facility] [address] [place] [address] Dr. Celina Venegas Neutrophils/100 WBC (Bld) 66.4 % Normal 43.0-75.0 [facility] Comment on above: Performed By: #### H STROPN #### [facility] [address] [address] [address] Celina Venegas Platelet mean volume (Bld) [Entitic vol] 10.4 fL Normal 9.5-13.5 [facility] Comment on above: Performed By: #### H STROPN #### [facility] [address] [address] [address] Celina Venegas PLT 219 103/ul Normal 150-450 [facility] Comment on above: Performed By: #### H STROPN #### [facility] [address] [address] [address] Celina Venegas RBC 3.64 106/ul Critically low 4.20-5.40 [facility] Comment on above: Performed By: #### H STROPN #### [facility] [address] [address] [address] Celina Venegas WBC 6.8 103/ul Normal 4.0-11.0 [facility] Comment on above: Performed By: #### H STROPN #### [facility] [address] [place] [address] Dr. Celina Venegas MAGNESIUMon 10-09-2022 Magnesium [Mass/Vol] 1.7 mg/dL Critically low 1.8-2.4 [facility] Comment on above: Performed By: #### M G, BNP, CMP #### [facility] [address] [address] [address] Celina Venegas POINT OF CARE GLUCOSEon 09-13 Glucose [Mass/Vol] 120 mg/dL Critically high 74-106 [facility] Comment on above: Performed By: #### H STROPN #### [facility] [address] [place] [address] Dr. Celina Venegas POTASSIUMon 10-09-2022 Potassium [Moles/Vol] 3.6 mmol/L Normal 3.5-5.1 [facility] Comment on above: Performed By: #### M G, BNP, CMP #### [facility] [address] [place] [address] Dr. Celina Venegas PROF 14(COMP METB)on 023 Albumin [Mass/Vol] 2.6 g/dL Critically low 3.4-5.0 [facility] Comment on above: Performed By: #### M G, BNP, CMP #### [facility] [address] [place] [address] Dr. Celina Venegas Albumin/Globulin [Mass ratio] 0.8 {ratio} Normal [facility] Comment on above: Performed By: #### M G, BNP, CMP #### [facility] [address] [place] [address] Dr. Celina Venegas ALP [Catalytic activity/Vol] 112 U/L Normal 46-116 [facility] Comment on above: Performed By: #### M G, BNP, CMP #### [facility] [address] [place] [address] Dr. Celina Venegas ALT [Catalytic activity/Vol] 16 U/L Normal 14-59 [facility] Comment on above: Performed By: #### M G, BNP, CMP #### [facility] [address] [address] [address] Celina Venegas Anion gap [Moles/Vol] 10.7 mmol/L Normal [facility] Comment on above: Performed By: #### M G, BNP, CMP #### [facility] [address] [address] [address] Celina Venegas AST [Catalytic activity/Vol] 13 U/L Critically low 15-37 [facility] Comment on above: Performed By: #### M G, BNP, CMP #### [facility] [address] [address] [address] Celina Venegas Bilirubin [Mass/Vol] 0.3 mg/dL Normal 0.2-1.0 [facility] Comment on above: Performed By: #### M G, BNP, CMP #### [facility] [address] [place] [address] Dr. Celina Venegas Calcium [Mass/Vol] 8.6 mg/dL Normal 8.5-10.1 [facility] Comment on above: Performed By: #### M G, BNP, CMP #### [facility] [address] [address] [address] Celina Venegas Chloride [Moles/Vol] 109 mmol/L Critically high 98-107 [facility] Comment on above: Performed By: #### M G, BNP, CMP #### [facility] [address] [address] [address] Celina Venegas CO2 [Moles/Vol] 26.5 mmol/L Normal 21.0-32.0 [facility] Comment on above: Performed By: #### M G, BNP, CMP #### [facility] [address] [address] [address] Celina Venegas Creatinine [Mass/Vol] 0.88 mg/dL Normal 0.55-1.02 [facility] Comment on above: Performed By: #### M G, BNP, CMP #### [facility] [address] [address] [address] Celina Venegas EGFR-AF TURKS AND CAICOS ISLANDER >60 Normal >=60 [facility] Comment on above: Performed By: #### M G, BNP, CMP #### [facility] [address] [address] [address] Celina Venegas EGFR-NON AF TURKS AND CAICOS ISLANDER >60 Normal >=60 [facility] Comment on above: Performed By: #### M G, BNP, CMP #### [facility] [address] [address] [address] Celina Venegas Globulin (S) [Mass/Vol] 3.4 g/dL Normal [facility] Comment on above: Performed By: #### M G, BNP, CMP #### [facility] [address] [address] [address] Celina Venegas Glucose [Mass/Vol] 84 mg/dL Normal 74-106 [facility] Comment on above: Performed By: #### M G, BNP, CMP #### [facility] [address] [place] [address] Dr. Celina Vneegas Potassium [Moles/Vol] 2.2 mmol/L Critically low 3.5-5.1 [facility] Comment on above: Performed By: #### M G, BNP, CMP #### [facility] [address] [address] [address] Celina Venegas Protein [Mass/Vol] 6.0 g/dL Critically low 6.4-8.2 [facility] Comment on above: Performed By: #### M G, BNP, CMP #### [facility] [address] [address] [address] Celina Venegas Sodium [Moles/Vol] 142 mmol/L Normal 136-145 [facility] Comment on above: Performed By: #### M G, BNP, CMP #### [facility] [address] [address] [address] Celina Venegas Urea nitrogen [Mass/Vol] 24.0 mg/dL Critically high 7.0-18.0 [facility] Comment on above: Performed By: #### M G, BNP, CMP #### [facility] [address] [address] [address] Celina Venegas Urea nitrogen/Creatinine [Mass ratio] 27.3 mg/mg Normal [facility] Comment on above: Performed By: #### M G, BNP, CMP #### [facility] [address] [place] [address] Dr. Celina Venegas PROTIMEon 10-09-2022 INR Coag (PPP) [Relative time] 1.04 {INR} Normal [facility] Comment on above: Performed By: #### B LDCX2 #### [facility] [address] [place] [address] Dr. Celina Venegas INR GUIDELINES SEE BELOW Normal [facility] Comment on above: Result Comment: CAESAR RED INR: 2.0 - 3.0 CONDITIONS NOT LISTED BELOW 2.5 - 3.5 FOR PROSTHETIC HEART VALVE REPLACEMENT 2.5 - 3.5 RECURRENT THROMBOSIS Performed By: #### B [id number] #### [facility] [address] [place] [address] Dr. Celina Venegas PT Coag (PPP) [Time] 11.0 s Normal 9.0-11.6 [facility] Comment on above: Performed By: #### B [id number] #### [facility] [address] [place] [address] Dr. Celina Venegas PTTon 10-09-2022 aPTT Coag (Bld) [Time] 23.9 s Normal 22.3-36.2 Th [facility] Comment on above: Performed By: #### B [id number] #### [facility] [address] [place] [address] Dr. Celina Venegas BNPon 10-08-2022 Natriuretic peptide B (Bld) [Mass/Vol] 37881.0 pg/mL Critically high <=900.0 [facility] Comment on above: Performed By: #### P REG #### [facility] [address] [place] [address] Dr. Celina Venegas CBC AUTO DIFFon 10-08-2022 BASO # 0.0 103/ul Normal 0.0-0.1 [facility] Comment on above: Performed By: #### B [id number] #### [facility] [address] [place] [address] Dr. Celina Venegas Basophils/100 WBC (Bld) 0.1 % Critically low 0.2-2.0 [facility] Comment on above: Performed By: #### B [id number] #### [facility] [address] [place] [address] Dr. Celina Venegas EO # 0.0 103/ul Normal 0.0-0.7 [facility] Comment on above: Performed By: #### B [id number] #### [facility] [address] [place] [address] Dr. Celina Venegas Eosinophils/100 WBC (Bld) 0.0 % Critically low 0.9-7.0 [facility] Comment on above: Performed By: #### B [id number] #### [facility] [address] [place] [address] Dr. Celina Venegas Erythrocyte distribution width (RBC) [Ratio] 14.6 % Normal 11.0-15.0 [facility] Comment on above: Performed By: #### B [id number] #### [facility] [address] [place] [address] Dr. Celina Veneags Hematocrit (Bld) [Volume fraction] 26.6 % Critically low 36.0-48.0 [facility] Comment on above: Performed By: #### B [id number] #### [facility] [address] [place] [address] Dr. Celina Venegas Hemoglobin (Bld) [Mass/Vol] 8.4 g/dL Critically low 12.0-16.0 [facility] Comment on above: Performed By: #### B [id number] #### [facility] [address] [place] [address] Dr. Celina Venegas IG # 0.03 10e3/ul Normal 0.00-0.03 [facility] Comment on above: Performed By: #### B [id number] #### [facility] [address] [place] [address] Dr. Celina Venegas IG % 0.4 % Normal 0.0-0.5 [facility] Comment on above: Performed By: #### B [id number] #### [facility] [address] [address] [address] Celina Venegas LYMPH # 0.7 103/ul Critically low 1.2-3.8 [facility] Comment on above: Performed By: #### B [id number] #### [facility] [address] [address] [address] Celina Venegas Lymphocytes/100 WBC (Bld) 10.3 % Critically low 20.5-60.0 [facility] Comment on above: Performed By: #### B [id number] #### [facility] [address] [address] [address] Celina Venegas MANUAL DIFF REQ NO Normal [facility] Comment on above: Performed By: #### B [id number] #### [facility] [address] [place] [address] Dr. Celina Venegas MCH (RBC) [Entitic mass] 25.2 pg Critically low 26.7-34.0 [facility] Comment on above: Performed By: #### B [id number] #### [facility] [address] [place] [address] Dr. Celina Venegas MCHC (RBC) [Mass/Vol] 31.6 g/dL Normal 29.9-35.2 [facility] Comment on above: Performed By: #### B [id number] #### [facility] [address] [place] [address] Dr. Celina Venegas MCV (RBC) [Entitic vol] 79.9 fL Critically low 81.0-99. 0 [facility] Comment on above: Performed By: #### B [id number] #### [facility] [address] [place] [address] Dr. Celina Venegas MONO # 0.3 103/ul Normal 0.3-0.8 [facility] Comment on above: Performed By: #### B [id number] #### [facility] [address] [place] [address] Dr. Celina Venegas Monocytes/100 WBC (Bld) 4.9 % Normal 1.7-12.0 [facility] Comment on above: Performed By: #### B [id number] #### [facility] [address] [address] [address] Celina Venegas NEUT # 5.8 103/ul Normal 1.4-6.5 [facility] Comment on above: Performed By: #### B [id number] #### [facility] [address] [address] [address] Celina Venegas Neutrophils/100 WBC (Bld) 84.3 % Critically high 43.0-75.0 [facility] Comment on above: Performed By: #### B [id number] #### [facility] [address] [address] [address] Celina Venegas Platelet mean volume (Bld) [Entitic vol] 10.5 fL Normal 9.5-13.5 [facility] Comment on above: Performed By: #### B [id number] #### [facility] [address] [place] [address] Dr. Celina Venegas PLT 207 103/ul Normal 150-450 [facility] Comment on above: Performed By: #### B [id number] #### [facility] [address] [place] [address] Dr. Celina Venegas RBC 3.33 106/ul Critically low 4.20-5.40 [facility] Comment on above: Performed By: #### B [id number] #### [facility] [address] [place] [address] Dr. Celina Venegas WBC 6.9 103/ul Normal 4.0-11.0 [facility] Comment on above: Performed By: #### B [email or web address] #### [facility] [address] [place] [address] Dr. Celina Venegas MAGNESIUMon 10-08-2022 Magnesium [Mass/Vol] 1.8 mg/dL Normal 1.8-2.4 [facility] Comment on above: Performed By: #### P REG #### [facility] [address] [place] [address] Dr. Celina Venegas POINT OF CARE GLUCOSEon 09-13 Glucose [Mass/Vol] 180 mg/dL Critically high 74-106 [facility] Comment on above: Performed By: #### M G, BNP, CMP #### [facility] [address] [place] [address] Dr. Celina Venegas Glucose [Mass/Vol] 116 mg/dL Critically high 74-106 [facility] Comment on above: Performed By: #### M G, BNP, CMP #### [facility] [address] [place] [address] Dr. Celina Venegas PROF 14(COMP METB)on 023 Albumin [Mass/Vol] 2.4 g/dL Critically low 3.4-5.0 [facility] Comment on above: Performed By: #### P REG #### [facility] [address] [place] [address] Dr. Celina Venegas Albumin/Globulin [Mass ratio] 0.7 {ratio} Normal [facility] Comment on above: Performed By: #### P REG #### [facility] [address] [place] [address] Dr. Celina Venegas ALP [Catalytic activity/Vol] 124 U/L Critically high 46-116 [facility] Comment on above: Performed By: #### P REG #### [facility] [address] [place] [address] Dr. Celina Venegas ALT [Catalytic activity/Vol] 17 U/L Normal 14-59 [facility] Comment on above: Performed By: #### P REG #### [facility] [address] [place] [address] Dr. Celina Venegas Anion gap [Moles/Vol] 10.6 mmol/L Normal [facility] Comment on above: Performed By: #### P REG #### [facility] [address] [place] [address] Dr. Celina Venegas AST [Catalytic activity/Vol] 14 U/L Critically low 15-37 [facility] Comment on above: Performed By: #### P REG #### [facility] [address] [place] [address] Dr. Celina Venegas Bilirubin [Mass/Vol] 0.2 mg/dL Normal 0.2-1.0 [facility] Comment on above: Performed By: #### P REG #### [facility] [address] [address] [address] Celina Venegas Calcium [Mass/Vol] 9.1 mg/dL Normal 8.5-10.1 [facility] Comment on above: Performed By: #### P REG #### [facility] [address] [address] [address] Celina Venegas Chloride [Moles/Vol] 110 mmol/L Critically high 98-107 [facility] Comment on above: Performed By: #### P REG #### [facility] [address] [address] [address] Celina Venegas CO2 [Moles/Vol] 26.8 mmol/L Normal 21.0-32.0 [facility] Comment on above: Performed By: #### P REG #### [facility] [address] [place] [address] Dr. Celina Venegas Creatinine [Mass/Vol] 0.81 mg/dL Normal 0.55-1.02 [facility] Comment on above: Performed By: #### P REG #### [facility] [address] [place] [address] Dr. Celina Venegas EGFR-AF TURKS AND CAICOS ISLANDER >60 Normal >=60 [facility] Comment on above: Performed By: #### P REG #### [facility] [address] [place] [address] Dr. Celina Venegas EGFR-NON AF TURKS AND CAICOS ISLANDER >60 Normal >=60 [facility] Comment on above: Performed By: #### P REG #### [facility] [address] [place] [address] Dr. Celina Venegas Globulin (S) [Mass/Vol] 3.6 g/dL Normal [facility] Comment on above: Performed By: #### P REG #### [facility] [address] [place] [address] Dr. Celina Venegas Glucose [Mass/Vol] 145 mg/dL Critically high 74-106 [facility] Comment on above: Performed By: #### P REG #### [facility] [address] [address] [address] Celina Venegas Potassium [Moles/Vol] 3.4 mmol/L Critically low 3.5-5.1 [facility] Comment on above: Performed By: #### P REG #### [facility] [address] [address] [address] Celina Venegas Protein [Mass/Vol] 6.0 g/dL Critically low 6.4-8.2 [facility] Comment on above: Performed By: #### P REG #### [facility] [address] [address] [address] Celina Venegas Sodium [Moles/Vol] 144 mmol/L Normal 136-145 [facility] Comment on above: Performed By: #### P REG #### [facility] [address] [place] [address] Dr. Celina Venegas Urea nitrogen [Mass/Vol] 20.0 mg/dL Critically high 7.0-18.0 [facility] Comment on above: Performed By: #### P REG #### [facility] [address] [place] [address] Dr. Celina Venegas Urea nitrogen/Creatinine [Mass ratio] 24.7 mg/mg Normal [facility] Comment on above: Performed By: #### P REG #### [facility] [address] [place] [address] Dr. Celina Venegas PROTIMEon 10-08-2022 INR Coag (PPP) [Relative time] 1.04 {INR} Normal [facility] Comment on above: Performed By: #### H STROPN #### [facility] [address] [place] [address] Dr. Celina Venegas INR GUIDELINES SEE BELOW Normal [facility] Comment on above: Result Comment: CAESAR RED INR: 2.0 - 3.0 CONDITIONS NOT LISTED BELOW 2.5 - 3.5 FOR PROSTHETIC HEART VALVE REPLACEMENT 2.5 - 3.5 RECURRENT THROMBOSIS Performed By: #### H STROPN #### [facility] [address] [place] [address] Dr. Celina Venegas PT Coag (PPP) [Time] 11.0 s Normal 9.0-11.6 [facility] Comment on above: Performed By: #### H VINNYPN #### [facility] [address] [place] [address] Dr. Celina Venegas PTTon 10-08-2022 aPTT Coag (Bld) [Time] 26.8 s Normal 22.3-36.2 [facility] Comment on above: Performed By: #### H STROPN #### [facility] [address] [place] [address] Dr. Celina Venegas XR CHEST 1 Von [...] MYCHAL STOREY Date: 2022-10-08 05:51 Normal [facility] BLOOD GASES BTYon 10-07-2022 02 MODE VENTILATOR Normal [facility] Comment on above: Performed By: #### M G, BNP, CMP #### [facility] [address] [place] [address] Dr. Celina Venegas ALLENS TEST Positive Normal [facility] Comment on above: Performed By: #### M G, BNP, CMP #### [facility] [address] [place] [address] Dr. Celina Venegas Base excess Calc (Bld) [Moles/Vol] -6.1000 mmol/L Critically low -2.0-2.0 [facility] Comment on above: Performed By: #### M G, BNP, CMP #### [facility] [address] [place] [address] Dr. Celina Venegas BIPAP PRESSURE Normal [facility] Comment on above: Performed By: #### M G, BNP, CMP #### [facility] [address] [place] [address] Dr. Celina Venegas CPAP [facility] Comment on above: Performed By: #### M G, BNP, CMP #### [facility] [address] [address] [address] Celina Venegas FIO2 30.00 % Normal [facility] Comment on above: Performed By: #### M G, BNP, CMP #### [facility] [address] [place] [address] Dr. Celina Venegas HCO3 (Bld) [Moles/Vol] 20.2 mmol/L Critically low 22.0-26. 0 [facility] Comment on above: Performed By: #### M G, BNP, CMP #### [facility] [address] [place] [address] Dr. Celina Venegas LPM [facility] Comment on above: Performed By: #### M G, BNP, CMP #### [facility] [address] [place] [address] Dr. Celina Venegas MINUTE VOLUME Normal [facility] Comment on above: Performed By: #### M G, BNP, CMP #### [facility] [address] [place] [address] Dr. Celina Venegas Oxygen (Bld) [Partial pressure] 102.0 mm[Hg] Critically high 80.0-100.0 [facility] Comment on above: Performed By: #### M G, BNP, CMP #### [facility] [address] [place] [address] Dr. Celina Venegas Oxygen saturation in Blood 97.8 % Normal 95.0-100.0 [facility] Comment on above: Performed By: #### M G, BNP, CMP #### [facility] [address] [place] [address] Dr. Celina Venegas PCO2 40.9 mmHg Normal 35.0-45.0 [facility] Comment on above: Performed By: #### M G, BNP, CMP #### [facility] [address] [place] [address] Dr. Celina Venegas PEEP 5 [facility] Comment on above: Performed By: #### M G, BNP, CMP #### [facility] [address] [address] [address] Celina Venegas pH (Bld) 7.303 [pH] Critically low 7.350-7.450 [facility] Comment on above: Performed By: #### M G, BNP, CMP #### [facility] [address] [address] [address] Celina Venegas [facility] Comment on above: Performed By: #### M G, BNP, CMP #### [facility] [address] [address] [address] Celina Venegas [facility] Comment on above: Performed By: #### M G, BNP, CMP #### [facility] [address] [address] [address] Celina Venegas PUNCTURE SITE RR [facility] Comment on above: Performed By: #### M G, BNP, CMP #### [facility] [address] [place] [address] Dr. Celina Venegas RATE 16 bpm [facility] Comment on above: Performed By: #### M G, BNP, CMP #### [facility] [address] [address] [address] Celina Venegas VENT MODE A/C [facility] Comment on above: Performed By: #### M G, BNP, CMP #### [facility] [address] [address] [address] Celina Venegas VT 400 ML [facility] Comment on above: Performed By: #### M G, BNP, CMP #### [facility] [address] [address] [address] Celina Venegas Base excess Calc (Bld) [Moles/Vol] -2.5000 mmol/L Critically low -2.0-2.0 [facility] Comment on above: Performed By: #### M G, BNP, CMP #### [facility] [address] [place] [address] Dr. Celina Venegas HCO3 (Bld) [Moles/Vol] 23.3 mmol/L Normal 22.0-26.0 [facility] Comment on above: Performed By: #### M G, BNP, CMP #### [facility] [address] [place] [address] Dr. Celina Venegas Oxygen (Bld) [Partial pressure] 97.7 mm[Hg] Normal 80.0-100.0 [facility] Comment on above: Performed By: #### M G, BNP, CMP #### [facility] [address] [place] [address] Dr. Celina Venegas Oxygen saturation in Blood 98.0 % Normal 95.0-100.0 [facility] Comment on above: Performed By: #### M G, BNP, CMP #### [facility] [address] [place] [address] Dr. Celina Venegas PCO2 43.6 mmHg Normal 35.0-45.0 [facility] Comment on above: Performed By: #### M G, BNP, CMP #### [facility] [address] [place] [address] Dr. Celina Venegas pH (Bld) 7.336 [pH] Critically low 7.350-7.450 [facility] Comment on above: Performed By: #### M G, BNP, CMP #### [facility] [address] [place] [address] Dr. Celina Venegas CBC AUTO DIFFon 10-07-2022 BASO # 0.0 103/ul Normal 0.0-0.1 [facility] Comment on above: Performed By: #### C BC #### [facility] [address] [place] [address] Dr. Celina Venegas Basophils/100 WBC (Bld) 0.0 % Critically low 0.2-2.0 [facility] Comment on above: Performed By: #### C BC #### [facility] [address] [place] [address] Dr. Celina Venegas EO # 0.0 103/ul Normal 0.0-0.7 [facility] Comment on above: Performed By: #### C BC #### [facility] [address] [address] [address] Celina Venegas Eosinophils/100 WBC (Bld) 0.0 % Critically low 0.9-7.0 [facility] Comment on above: Performed By: #### C BC #### [facility] [address] [place] [address] Dr. Celina Venegas Erythrocyte distribution width (RBC) [Ratio] 14.6 % Normal 11.0-15.0 [facility] Comment on above: Performed By: #### C BC #### [facility] [address] [place] [address] Dr. Celina Venegas Hematocrit (Bld) [Volume fraction] 31.7 % Critically low 36.0-48.0 [facility] Comment on above: Performed By: #### C BC #### [facility] [address] [place] [address] Dr. Celina Venegas Hemoglobin (Bld) [Mass/Vol] 9.5 g/dL Critically low 12.0-16.0 [facility] Comment on above: Performed By: #### C BC #### [facility] [address] [place] [address] Dr. Celina Venegas IG # 0.04 10e3/ul Critically high 0.00-0.03 [facility] Comment on above: Performed By: #### C BC #### [facility] [address] [place] [address] Dr. Celina Venegas IG % 0.5 % Normal 0.0-0.5 [facility] Comment on above: Performed By: #### C BC #### [facility] [address] [place] [address] Dr. Celina Venegas LYMPH # 0.8 103/ul Critically low 1.2-3.[address] [facility] Comment on above: Performed By: #### C BC #### [facility] [address] [place] [address] Dr. Celina Venegas Lymphocytes/100 WBC (Bld) 10.1 % Critically low 20.5-60.0 [facility] Comment on above: Performed By: #### C BC #### [facility] [address] [address] [address] Celina Venegas MANUAL DIFF REQ NO Normal [facility] Comment on above: Performed By: #### C BC #### [facility] [address] [address] [address] Celina Venegas MCH (RBC) [Entitic mass] 24.2 pg Critically low 26.7-34.0 [facility] Comment on above: Performed By: #### C BC #### [facility] [address] [address] [address] Celina Venegas MCHC (RBC) [Mass/Vol] 30.0 g/dL Normal 29.9-35.2 [facility] Comment on above: Performed By: #### C BC #### [facility] [address] [place] [address] Dr. Celina Venegas MCV (RBC) [Entitic vol] 80.7 fL Critically low 81.0-99. 0 [facility] Comment on above: Performed By: #### C BC #### [facility] [address] [address] [address] Celina Venegas MONO # 0.1 103/ul Critically low 0.3-0.[address] [facility] Comment on above: Performed By: #### C BC #### [facility] [address] [address] [address] Celina Venegas Monocytes/100 WBC (Bld) 1.4 % Critically low 1.7-12.0 [facility] Comment on above: Performed By: #### C BC #### [facility] [address] [address] [address] Celina Venegas NEUT # 6.8 103/ul Critically high 1.4-6.5 [facility] Comment on above: Performed By: #### C BC #### [facility] [address] [address] [address] Celina Venegas Neutrophils/100 WBC (Bld) 88.0 % Critically high 43.0-75.0 [facility] Comment on above: Performed By: #### C BC #### [facility] [address] [place] [address] Dr. Celina Venegas Platelet mean volume (Bld) [Entitic vol] 10.5 fL Normal 9.5-13.5 [facility] Comment on above: Performed By: #### C BC #### [facility] [address] [address] [address] Celina Venegas PLT 194 103/ul Normal 150-450 [facility] Comment on above: Performed By: #### C BC #### [facility] [address] [address] [address] Celina Venegas RBC 3.93 106/ul Critically low 4.20-5.40 [facility] Comment on above: Performed By: #### C BC #### [facility] [address] [place] [address] Dr. Celina Venegas WBC 7.8 103/ul Normal 4.0-11.0 [facility] Comment on above: Performed By: #### C BC #### [facility] [address] [place] [address] Dr. Celina Venegas CULTURE BLOODon 10-07-2022 Microscopic examination of blood, culture Culture Observations: NO GROWTH AT 5 DAYS. Normal [facility] Comment on above: Performed By: #### H STROPN #### [facility] [address] [place] [address] Dr. Celina Venegas Microscopic examination of blood, culture Culture Observations: NO GROWTH AT 5 DAYS. Normal [facility] Comment on above: Performed By: #### H STROPN #### [facility] [address] [place] [address] Dr. Celina Venegas ECHOCARDIO M/2D COMPLETEon 0 10-07-2022 ECHOCARDIO M/2D COMPLETE Patient: SHAHIDA MEJIA Exam Date: 10/07/2022 : 1970 Gender:F Ordering : SHAIKH Juliana SKELTON . 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 on 10/07/2022 at 17:48 Normal [facility] FREE T3on 10-07-2022 FREE T3 3.12 pg/mlL Normal 2.18-3.98 [facility] Comment on above: Performed By: #### B [id number] #### [facility] [address] [place] [address] Dr. Celina Venegas FREE T4on 10-07-2022 Free T4 [Mass/Vol] 1.63 ng/dL Critically high 0.76-1.46 [facility] Comment on above: Performed By: #### H STROPN #### [facility] [address] [address] [address] Celina Venegas GLYCOHEMOGLOBIN A1Con 2022 ADA RECOMMENDATION SEE BELOW Normal [facility] Comment on above: Result Comment: ADA RECOMMENDED LIMIT 4.0 - 6.0 ADA THERAPEUTIC TARGET < 7.0 ACTION SUGGESTED > 7.0 Performed By: #### B LDCX1 #### [facility] [address] [address] [address] Celina Venegas Glucose [Mass/Vol] 117 mg/dL Normal [facility] Comment on above: Performed By: #### B LDCX1 #### [facility] [address] [address] [address] Celina Venegas HbA1c (Bld) [Mass fraction] 5.7 % Normal 4.5-6.2 [facility] Comment on above: Performed By: #### B [id number] #### [facility] [address] [address] [address] Celina Venegas MAGNESIUMon 10-07-2022 Magnesium [Mass/Vol] 1.5 mg/dL Critically low 1.8-2.4 [facility] Comment on above: Performed By: #### M G BNP, CMP #### [facility] [address] [address] [address] Celina Venegas POINT OF CARE GLUCOSEon 09-13 Glucose [Mass/Vol] 247 mg/dL Critically high 74-106 [facility] Comment on above: Performed By: #### M G BNP, CMP #### [facility] [address] [place] [address] Dr. Celina Venegas Glucose [Mass/Vol] 152 mg/dL Critically high 74-106 [facility] Comment on above: Performed By: #### B [id number] #### [facility] [address] [place] [address] Dr. Celina Venegas PROF 14(COMP METB)on 023 Albumin [Mass/Vol] 2.5 g/dL Critically low 3.4-5.0 [facility] Comment on above: Performed By: #### M G, BNP, CMP #### [facility] [address] [address] [address] Celina Venegas Albumin/Globulin [Mass ratio] 0.6 {ratio} Normal [facility] Comment on above: Performed By: #### M G, BNP, CMP #### [facility] [address] [address] [address] Celina Venegas ALP [Catalytic activity/Vol] 167 U/L Critically high 46-116 [facility] Comment on above: Performed By: #### M G, BNP, CMP #### [facility] [address] [address] [address] Celina Venegas ALT [Catalytic activity/Vol] 22 U/L Normal 14-59 [facility] Comment on above: Performed By: #### M G, BNP, CMP #### [facility] [address] [address] [address] Celina Venegas Anion gap [Moles/Vol] 15.1 mmol/L Normal [facility] Comment on above: Performed By: #### M G, BNP, CMP #### [facility] [address] [address] [address] Celina Venegas AST [Catalytic activity/Vol] 26 U/L Normal 15-37 [facility] Comment on above: Performed By: #### M G, BNP, CMP #### [facility] [address] [address] [address] Celina Venegas Bilirubin [Mass/Vol] 0.2 mg/dL Normal 0.2-1.0 [facility] Comment on above: Performed By: #### M G, BNP, CMP #### [facility] [address] [address] [address] Celina Venegas Calcium [Mass/Vol] 8.2 mg/dL Critically low 8.5-10.1 [facility] Comment on above: Performed By: #### M G, BNP, CMP #### [facility] [address] [address] [address] Celina Venegas Chloride [Moles/Vol] 107 mmol/L Normal 98-107 [facility] Comment on above: Performed By: #### M G, BNP, CMP #### [facility] [address] [address] [address] Celina Venegas CO2 [Moles/Vol] 23.8 mmol/L Normal 21.0-32.0 [facility] Comment on above: Performed By: #### M G, BNP, CMP #### [facility] [address] [address] [address] Celina Venegas Creatinine [Mass/Vol] 1.09 mg/dL Critically high 0.55-1.02 [facility] Comment on above: Performed By: #### M G, BNP, CMP #### [facility] [address] [place] [address] Dr. Celina Venegas EGFR-AF TURKS AND CAICOS ISLANDER >60 Normal >=60 [facility] Comment on above: Performed By: #### M G, BNP, CMP #### [facility] [address] [address] [address] Celina Venegas EGFR-NON AF TURKS AND CAICOS ISLANDER 53 mL/min/1.73m2 Critically low >=60 [facility] Comment on above: Performed By: #### M G, BNP, CMP #### [facility] [address] [address] [address] Celina Venegas Globulin (S) [Mass/Vol] 3.9 g/dL Normal [facility] Comment on above: Performed By: #### M G, BNP, CMP #### [facility] [address] [address] [address] Celina Venegas Glucose [Mass/Vol] 244 mg/dL Critically high 74-106 [facility] Comment on above: Performed By: #### M G, BNP, CMP #### [facility] [address] [address] [address] Celina Venegas Potassium [Moles/Vol] 3.9 mmol/L Normal 3.5-5.1 [facility] Comment on above: Performed By: #### M G, BNP, CMP #### [facility] [address] [place] [address] Dr. Celina Venegas Protein [Mass/Vol] 6.4 g/dL Normal 6.4-8.2 [facility] Comment on above: Performed By: #### M G, BNP, CMP #### [facility] [address] [place] [address] Dr. Celina Venegas Sodium [Moles/Vol] 142 mmol/L Normal 136-145 [facility] Comment on above: Performed By: #### M G, BNP, CMP #### [facility] [address] [place] [address] Dr. Celina Venegas Urea nitrogen [Mass/Vol] 18.0 mg/dL Normal 7.0-18.0 [facility] Comment on above: Performed By: #### M G, BNP, CMP #### [facility] [address] [place] [address] Dr. Celina Venegas Urea nitrogen/Creatinine [Mass ratio] 16.5 mg/mg Normal [facility] Comment on above: Performed By: #### M G, BNP, CMP #### [facility] [address] [place] [address] Dr. Celina Venegas PROTIMEon 10-07-2022 INR Coag (PPP) [Relative time] 1.00 {INR} Normal [facility] Comment on above: Performed By: #### B LDCX2 #### [facility] [address] [place] [address] Dr. Celina Venegas INR GUIDELINES SEE BELOW Normal [facility] Comment on above: Result Comment: CAESAR RED INR: 2.0 - 3.0 CONDITIONS NOT LISTED BELOW 2.5 - 3.5 FOR PROSTHETIC HEART VALVE REPLACEMENT 2.5 - 3.5 RECURRENT THROMBOSIS Performed By: #### B LDCX2 #### [facility] [address] [place] [address] Dr. Celina Venegas PT Coag (PPP) [Time] 10.6 s Normal 9.0-11.6 [facility] Comment on above: Performed By: #### B LDCX2 #### [facility] [address] [address] [address] Celina Venegas INR Coag (PPP) [Relative time] 1.01 {INR} Normal [facility] Comment on above: Performed By: #### M G, BNP, CMP #### [facility] [address] [address] [address] Celina Venegas INR GUIDELINES SEE BELOW Normal [facility] Comment on above: Result Comment: CAESAR RED INR: 2.0 - 3.0 CONDITIONS NOT LISTED BELOW 2.5 - 3.5 FOR PROSTHETIC HEART VALVE REPLACEMENT 2.5 - 3.5 RECURRENT THROMBOSIS Performed By: #### M G, BNP, CMP #### [facility] [address] [place] [address] Dr. Celina Venegas PT Coag (PPP) [Time] 10.7 s Normal 9.0-11.6 [facility] Comment on above: Performed By: #### M G, BNP, CMP #### [facility] [address] [place] [address] Dr. Celina Venegas PTTon 10-07-2022 aPTT Coag (Bld) [Time] 20.4 s Critically low 22.3-36.2 [facility] Comment on above: Performed By: #### B LDCX2 #### [facility] [address] [place] [address] Dr. Celina Venegas aPTT Coag (Bld) [Time] 25.2 s Normal 22.3-36.2 [facility] Comment on above: Performed By: #### M G, BNP, CMP #### [facility] [address] [place] [address] Dr. Celina Venegas T4on 10-07-2022 T4 [Mass/Vol] 10.20 ug/dL Normal 4.80-13.90 [facility] Comment on above: Performed By: #### B LDCX1 #### [facility] [address] [place] [address] Dr. Celina Venegas TROPONIN, HIGH SENSITIVITYon 10-07-2022 HSTROP 279.6 pg/mL Critically high 4.0-51.3 The [facility] Comment on above: Result Comment: CUT- OFF POINTS HAVE BEEN ESTABLISHED BASED ON THE FOURTH UNIVERSAL DEFINITIONS OF MYOCARDIAL INFARCTION. THE UPPER REFERENCE LIMIT (URL) OF TROPONIN, DEFINED THE 99TH PERCENTILE OF cTnI DISTRIBUTION IN A REFERENCE POPULATION, HAS BEEN CONFIRMED THE DECISION THRESHOLD FOR [place] DIAGNOSIS. Performed By: #### M G, BNP, CMP #### [facility] [address] [address] [address] Celina Venegas HSTROP 336.1 pg/mL Critically high 4.0-51.3 [facility] Comment on above: Result Comment: CUT- OFF POINTS HAVE BEEN ESTABLISHED BASED ON THE FOURTH UNIVERSAL DEFINITIONS OF MYOCARDIAL INFARCTION. THE UPPER REFERENCE LIMIT (URL) OF TROPONIN, DEFINED THE 99TH PERCENTILE OF cTnI DISTRIBUTION IN A REFERENCE POPULATION, HAS BEEN CONFIRMED THE DECISION THRESHOLD FOR [place] DIAGNOSIS. Performed By: #### M G, BNP, CMP #### [facility] [address] [address] [address] Celina Venegas TSHon 10-07-2022 TSH Qn m[IU]/L Critically low 0.358-3.740 [facility] [place] Comment on above: Performed By: #### M G, BNP, CMP #### [facility] [address] [address] [address] Celina Venegas XR CHEST 1 Von 10-07-2022 XR CHEST 1 V EXAM: XR CHEST 1 V HISTORY: SHORTNESS OF BREATH COMPARISON: 10/07/2022 TECHNIQUE: AP view of the chest. Findings/impression: Decreasing bibasilar airspace disease. Stable cardiac silhouette. No pneumothorax. Trace bilateral pleural effusions. Stable ET and NG tubes. Electronically authenticated by: LOUISE POLLOCK Date: 2022-10-07 09:31 Normal [facility] XR CHEST 1 V EXAM: [...] EMILE DOWNS Date: 2022-10-07 05:44 Normal [facility] XR KUB 1 VIEWon 10-07-2022 [...] by: Juaquin COLEMAN Date: 2022-10-06 23:40 Normal [facility] ACETAMINOPHENon 10-06-2022 Acetaminophen [Mass/Vol] ug/mL Critically low 10.0-30.0 [facility] Comment on above: Performed By: #### H STROPN #### [facility] [address] [place] [address] Dr. Celina Venegas ACETONE SERUMon 10-06-2022 ACETONE Negative Normal NEGATIVE [facility] Comment on above: Performed By: #### B [id number] #### [facility] [address] [place] [address] Dr. Celina Venegas BLOOD GASES BTYon 10-06-2022 02 MODE VENTILATOR Normal [facility] Comment on above: Performed By: #### M G, BNP, CMP #### [facility] [address] [place] [address] Dr. Celina Venegas Performed By: #### A BG #### [facility] [address] [place] [address] Dr. Celina Venegas ALLENS TEST Positive Normal [facility] Comment on above: Performed By: #### M G, BNP, CMP #### [facility] [address] [address] [address] Celina Venegas Performed By: #### A BG #### [facility] [address] [place] [address] Dr. Celina Venegas Base excess Calc (Bld) [Moles/Vol] -8.9000 mmol/L Critically low -2.0-2.0 [facility] Comment on above: Performed By: #### A BG #### [facility] [address] [place] [address] Dr. Celina Venegas BIPAP PRESSURE [facility] Comment on above: Performed By: #### M G, BNP, CMP #### [facility] [address] [place] [address] Dr. Celina Venegas Performed By: #### A BG #### [facility] [address] [place] [address] Dr. Celina Venegas CPAP [facility] Comment on above: Performed By: #### M G, BNP, CMP #### [facility] [address] [place] [address] Dr. Celina Venegas Performed By: #### A BG #### [facility] [address] [place] [address] Dr. Celina Venegas FIO2 40.00 % [facility] Comment on above: Performed By: #### M G, BNP, CMP #### [facility] [address] [place] [address] Dr. Celina Venegas Performed By: #### A BG #### [facility] [address] [place] [address] Dr. Celina Venegas HCO3 (Bld) [Moles/Vol] 19.3 mmol/L Critically low 22.0-26. 0 [facility] Comment on above: Performed By: #### A BG #### [facility] [address] [place] [address] Dr. Celina Venegas LPM [facility] Comment on above: Performed By: #### M G, BNP, CMP #### [facility] [address] [place] [address] Dr. Celina Venegas Performed By: #### A BG #### [facility] [address] [place] [address] Dr. Celina Venegas MINUTE VOLUME Normal [facility] Comment on above: Performed By: #### M G, BNP, CMP #### [facility] [address] [place] [address] Dr. Celina Venegas Performed By: #### A BG #### [facility] [address] [place] [address] Dr. Celina Venegas Oxygen (Bld) [Partial pressure] 97.4 mm[Hg] Normal 80.0-100.0 [facility] Comment on above: Performed By: #### A BG #### [facility] [address] [place] [address] Dr. Celina Venegas Oxygen saturation in Blood 96.1 % Normal 95.0-100.0 [facility] Comment on above: Performed By: #### A BG #### [facility] [address] [place] [address] Dr. Celina Venegas PCO2 50.2 mmHg Critically high 35.0-45.0 [facility] Comment on above: Performed By: #### A BG #### [facility] [address] [place] [address] Dr. Celina Venegas PEEP 5 [facility] Comment on above: Performed By: #### M G, BNP, CMP #### [facility] [address] [place] [address] Dr. Celina Venegas Performed By: #### A BG #### [facility] [address] [place] [address] Dr. Celina Venegas pH (Bld) 7.193 [pH] Critically low 7.350-7.450 [facility] Comment on above: Performed By: #### A BG #### [facility] [address] [place] [address] Dr. Celina Venegas PIP [facility] Comment on above: Performed By: #### M G, BNP, CMP #### [facility] [address] [place] [address] Dr. Celina Venegas Performed By: #### A BG #### [facility] [address] [address] [address] Celina Venegas PS [facility] Comment on above: Performed By: #### M G, BNP, CMP #### [facility] [address] [address] [address] Celina Venegas Performed By: #### A BG #### [facility] [address] [address] [address] Celina Venegas PUNCTURE SITE RR [facility] Comment on above: Performed By: #### M G, BNP, CMP #### [facility] [address] [address] [address] Celina Venegas Performed By: #### A BG #### [facility] [address] [place] [address] Dr. Celina Venegas RATE 16 bpm [facility] Comment on above: Performed By: #### M G, BNP, CMP #### [facility] [address] [address] [address] Celina Venegas Performed By: #### A BG #### [facility] [address] [address] [address] Celina Venegas VENT MODE A/C [facility] Comment on above: Performed By: #### M G, BNP, CMP #### [facility] [address] [place] [address] Dr. Celina Venegas Performed By: #### A BG #### [facility] [address] [place] [address] Dr. Celina Venegas VT 400 ML [facility] Comment on above: Performed By: #### M G, BNP, CMP #### [facility] [address] [address] [address] Celina Venegas Performed By: #### A BG #### [facility] [address] [place] [address] Dr. Celina Venegas BNPon 10-06-2022 Natriuretic peptide B (Bld) [Mass/Vol] 3590.0 pg/mL Critically high <=900.0 [facility] Comment on above: Performed By: #### C BC #### [facility] [address] [address] [address] Celina Venegas CBC AUTO DIFFon 10-06-2022 BASO # 0.1 103/ul Normal 0.0-0.1 [facility] Comment on above: Performed By: #### P REG #### [facility] [address] [address] [address] Celina Venegas Basophils/100 WBC (Bld) 0.4 % Normal 0.2-2.0 [facility] Comment on above: Performed By: #### P REG #### [facility] [address] [address] [address] Celina Venegas EO # 0.2 103/ul Normal 0.0-0.7 [facility] Comment on above: Performed By: #### P REG #### [facility] [address] [address] [address] Celina Venegas Eosinophils/100 WBC (Bld) 1.1 % Normal 0.9-7.0 [facility] Comment on above: Performed By: #### P REG #### [facility] [address] [address] [address] Celina Venegas Erythrocyte distribution width (RBC) [Ratio] 14.5 % Normal 11.0-15.0 [facility] Comment on above: Performed By: #### P REG #### [facility] [address] [address] [address] Celina Venegas Hematocrit (Bld) [Volume fraction] 38.1 % Normal 36.0-48.0 [facility] Comment on above: Performed By: #### P REG #### [facility] [address] [address] [address] Celina Venegas Hemoglobin (Bld) [Mass/Vol] 11.3 g/dL Critically low 12.0-16.0 [facility] Comment on above: Performed By: #### P REG #### [facility] [address] [address] [address] Celina Venegas IG # 0.21 10e3/ul Critically high 0.00-0.03 [facility] Comment on above: Performed By: #### P REG #### [facility] [address] [address] [address] Celina Venegas IG % 1.5 % Critically high 0.0-0.5 [facility] Comment on above: Performed By: #### P REG #### [facility] [address] [place] [address] Dr. Celina Venegas LYMPH # 3.3 103/ul Normal 1.2-3.8 [facility] Comment on above: Performed By: #### P REG #### [facility] [address] [place] [address] Dr. Celina Venegas Lymphocytes/100 WBC (Bld) 23.8 % Normal 20.5-60.0 [facility] Comment on above: Performed By: #### P REG #### [facility] [address] [place] [address] Dr. Celina Venegas MANUAL DIFF REQ NO Normal [facility] Comment on above: Performed By: #### P REG #### [facility] [address] [place] [address] Dr. Celina Venegas MCH (RBC) [Entitic mass] 24.9 pg Critically low 26.7-34.0 [facility] Comment on above: Performed By: #### P REG #### [facility] [address] [place] [address] Dr. Celina Venegas MCHC (RBC) [Mass/Vol] 29.7 g/dL Critically low 29.9-35.2 [facility] Comment on above: Performed By: #### P REG #### [facility] [address] [place] [address] Dr. Celina Venegas MCV (RBC) [Entitic vol] 83.9 fL Normal 81.0-99.0 [facility] Comment on above: Performed By: #### P REG #### [facility] [address] [place] [address] Dr. Celina Venegas MONO # 0.5 103/ul Normal 0.3-0.8 [facility] Comment on above: Performed By: #### P REG #### [facility] [address] [address] [address] Celina Venegas Monocytes/100 WBC (Bld) 3.8 % Normal 1.7-12.0 [facility] Comment on above: Performed By: #### P REG #### [facility] [address] [address] [address] Celina Venegas NEUT # 9.6 103/ul Critically high 1.4-6.5 [facility] Comment on above: Performed By: #### P REG #### [facility] [address] [address] [address] Celina Venegas Neutrophils/100 WBC (Bld) 69.4 % Normal 43.0-75.0 [facility] Comment on above: Performed By: #### P REG #### [facility] [address] [place] [address] Dr. Celina Venegas Platelet mean volume (Bld) [Entitic vol] 10.4 fL Normal 9.5-13.5 [facility] Comment on above: Performed By: #### P REG #### [facility] [address] [address] [address] Celina Venegas PLT 409 103/ul Normal 150-450 [facility] Comment on above: Performed By: #### P REG #### [facility] [address] [place] [address] Dr. Celina Venegas RBC 4.54 106/ul Normal 4.20-5.40 [facility] Comment on above: Performed By: #### P REG #### [facility] [address] [place] [address] Dr. Celina Venegas WBC 13.8 103/ul Critically high 4.0-11.0 [facility] Comment on above: Performed By: #### P REG #### [facility] [address] [place] [address] ABD/PELV W CONon [...] by: Ju RIVERA Date: 2022-10-06 21:52 Normal [facility] CT ABD/PELVIS WO CONon 10-06 [...] LISSA ARTEAGA Date: 2022-10-06 21:51 Normal [facility] CULTURE BLOODon 10-06-2022 Microscopic examination of blood, culture Culture Observations: NO GROWTH AT 5 DAYS. Normal [facility] Comment on above: Performed By: #### H STROPN #### [facility] [address] [address] [address] Celina Venegas Performed By: #### B LDCX1 #### [facility] [address] [address] [address] Celina Venegas Covid-19 PCR (CVDTB)on 09-13 SARS-CoV-2 (COVID-19) RNA ELVA+probe Ql (Unsp spec) Not detected Normal NOT DETECTED [facility] Comment on above: Performed By: #### P REG #### [facility] [address] [place] [address] Dr. Celina Venegas DRUG SCREEN RAPID (URINE)on 10-06-2022 AMP Negative Normal NEGATIVE [facility] Comment on above: Performed By: #### M G, BNP, CMP #### [facility] [address] [place] [address] Dr. Celina Venegas BAR Negative Normal NEGATIVE [facility] Comment on above: Performed By: #### M G, BNP, CMP #### [facility] [address] [address] [address] Celina Venegas BUP Negative Normal NEGATIVE [facility] Comment on above: Performed By: #### M G, BNP, CMP #### [facility] [address] [place] [address] Dr. Celina Venegas BZO Negative Normal NEGATIVE [facility] Comment on above: Performed By: #### M G, BNP, CMP #### [facility] [address] [place] [address] Dr. Celina Venegas BRIANDA Negative Normal NEGATIVE [facility] Comment on above: Performed By: #### M G, BNP, CMP #### [facility] [address] [place] [address] Dr. Celina Venegas CUT-OFFS SEE BELOW Normal [facility] Comment on above: Result Comment: [...] By: #### M G, BNP, CMP #### [facility] [address] [place] [address] Dr. Celina Venegas DRUG CUT HEADER DRUG CLASS TEST SYSTEM CUT-OFF CONCENTRATIONS ARE FOLLOWS: Normal [facility] Comment on above: Performed By: #### M G, BNP, CMP #### [facility] [address] [address] [address] Celina Venegas mAMP Negative Normal NEGATIVE [facility] Comment on above: Performed By: #### M G, BNP, CMP #### [facility] [address] [address] [address] Celina Venegas MTD Negative Normal NEGATIVE [facility] Comment on above: Performed By: #### M G, BNP, CMP #### [facility] [address] [address] [address] Celina Venegas OPI Negative Normal NEGATIVE [facility] Comment on above: Performed By: #### M G, BNP, CMP #### [facility] [address] [place] [address] Dr. Celina Venegas OXY Negative Normal NEGATIVE [facility] Comment on above: Performed By: #### M G, BNP, CMP #### [facility] [address] [address] [address] Celina Venegas PCP Negative Normal NEGATIVE [facility] Comment on above: Performed By: #### M G, BNP, CMP #### [facility] [address] [place] [address] Dr. Celina Venegas PPX Negative Normal NEGATIVE [facility] Comment on above: Performed By: #### M G, BNP, CMP #### [facility] [address] [address] [address] Celina Venegas TCA Negative Normal NEGATIVE [facility] Comment on above: Performed By: #### M G, BNP, CMP #### [facility] [address] [place] [address] Dr. Celina Venegas THC Positive Abnormal NEGATIVE [facility] Comment on above: Performed By: #### M G, BNP, CMP #### [facility] [address] [place] [address] Dr. Celina Venegas ETHANOL (BLD ALC)on 10-07-19 ALC NOTE NOTE: 80 mg/dl is th e legal limit for a blood alcohol level Normal [facility] Comment on above: Performed By: #### B LDCX2 #### [facility] [address] [place] [address] Dr. Celina Venegas Ethanol [Mass/Vol] mg/dL Normal [facility] Comment on above: Performed By: #### B LDCX2 #### [facility] [address] [place] [address] Dr. Celina Venegas LACTATE/LACTIC ACIDon 2022 Lactate [Moles/Vol] 2.2 mmol/L Critically high 0.4-2.0 [facility] Comment on above: Performed By: #### B LDCX2 #### [facility] [address] [place] [address] Dr. Celina Venegas Lactate [Moles/Vol] 5.5 mmol/L Critically high 0.4-2.0 [facility] Comment on above: Performed By: #### M G, BNP, CMP #### [facility] [address] [place] [address] Dr. Celina Venegas LIVER PROFILEon 10-06-2022 Albumin [Mass/Vol] 2.8 g/dL Critically low 3.4-5.0 [facility] Comment on above: Performed By: #### M G, BNP, CMP #### [facility] [address] [place] [address] Dr. Celina Venegas Albumin/Globulin [Mass ratio] 0.6 {ratio} Normal [facility] Comment on above: Performed By: #### M G, BNP, CMP #### [facility] [address] [place] [address] Dr. Celina Venegas ALP [Catalytic activity/Vol] 218 U/L Critically high 46-116 [facility] Comment on above: Performed By: #### M G, BNP, CMP #### [facility] [address] [place] [address] Dr. Celian Venegas ALT [Catalytic activity/Vol] 22 U/L Normal 14-59 [facility] Comment on above: Performed By: #### M G, BNP, CMP #### [facility] [address] [address] [address] Celina Venegas AST [Catalytic activity/Vol] 27 U/L Normal 15-37 [facility] Comment on above: Performed By: #### M G, BNP, CMP #### [facility] [address] [address] [address] Celina Venegas BILI, CONJUGATED 0.1 mg/dL Normal 0.0-0.2 [facility] Comment on above: Performed By: #### M G, BNP, CMP #### [facility] [address] [address] [address] Celina Venegas Bilirubin [Mass/Vol] 0.2 mg/dL Normal 0.2-1.0 [facility] Comment on above: Performed By: #### M G, BNP, CMP #### [facility] [address] [place] [address] Dr. Celina Venegas Globulin (S) [Mass/Vol] 4.6 g/dL Normal [facility] Comment on above: Performed By: #### M G, BNP, CMP #### [facility] [address] [place] [address] Dr. Celina Venegas Protein [Mass/Vol] 7.4 g/dL Normal 6.4-8.2 [facility] Comment on above: Performed By: #### M G, BNP, CMP #### [facility] [address] [place] [address] Dr. Celina Venegas PROF CHEM 8 (BAS METB)on Anion gap [Moles/Vol] 20.6 mmol/L Normal [facility] Comment on above: Performed By: #### C BC #### [facility] [address] [place] [address] Dr. Celina Venegas Calcium [Mass/Vol] 8.4 mg/dL Critically low 8.5-10.1 [facility] Comment on above: Performed By: #### C BC #### [facility] [address] [place] [address] Dr. Celina Venegas Chloride [Moles/Vol] 107 mmol/L Normal 98-107 [facility] Comment on above: Performed By: #### C BC #### [facility] [address] [address] [address] Celina Venegas CO2 [Moles/Vol] 19.5 mmol/L Critically low 21.0-32.0 [facility] Comment on above: Performed By: #### C BC #### [facility] [address] [address] [address] Celina Venegas Creatinine [Mass/Vol] 1.39 mg/dL Critically high 0.55-1.02 [facility] Comment on above: Performed By: #### C BC #### [facility] [address] [address] [address] Celina Venegas EGFR-AF TURKS AND CAICOS ISLANDER 48 mL/min/1.73m2 Critically low >=60 [facility] Comment on above: Performed By: #### C BC #### [facility] [address] [address] [address] Celina Venegas EGFR-NON AF TURKS AND CAICOS ISLANDER 40 mL/min/1.73m2 Critically low >=60 [facility] Comment on above: Performed By: #### C BC #### [facility] [address] [place] [address] Dr. Celina Venegas Glucose [Mass/Vol] 322 mg/dL Critically high 74-106 [facility] Comment on above: Performed By: #### C BC #### [facility] [address] [address] [address] Celina Venegas Potassium [Moles/Vol] 3.1 mmol/L Critically low 3.5-5.1 [facility] Comment on above: Performed By: #### C BC #### [facility] [address] [address] [address] Celina Venegas Sodium [Moles/Vol] 144 mmol/L Normal 136-145 [facility] Comment on above: Performed By: #### C BC #### [facility] [address] [address] [address] Celina Venegas Urea nitrogen [Mass/Vol] 22.0 mg/dL Critically high 7.0-18.0 [facility] Comment on above: Performed By: #### C BC #### [facility] [address] [address] [address] Celina Venegas Urea nitrogen/Creatinine [Mass ratio] 15.8 mg/mg Normal [facility] Comment on above: Performed By: #### C BC #### [facility] [address] [address] [address] Celina Venegas SALICYLATEon 10-06-2022 SALICYLATE <2.8 Normal <=19.9 [facility] Comment on above: Performed By: #### H STROPN #### [facility] [address] [address] [address] Celina Venegas SYMPTOMATIC COVID-19 ANTIGEN on 10-06-2022 EUA Statement SEE BELOW Normal [facility] Comment on above: Result Comment: This test [...] By: #### M G, BNP, CMP #### [facility] [address] [place] [address] Dr. Celina Venegas SARS-CoV-2 (COVID-19) RNA ELVA+probe Ql (Unsp spec) Negative Normal NEGATIVE [facility] Comment on above: Performed By: #### M G, BNP, CMP #### [facility] [address] [address] [address] Celina Venegas TROPONIN, HIGH SENSITIVITYon 10-06-2022 HSTROP 288.7 pg/mL Critically high 4.0-51.3 [facility] Comment on above: Result Comment: CUT- OFF POINTS HAVE BEEN ESTABLISHED BASED ON THE FOURTH UNIVERSAL DEFINITIONS OF MYOCARDIAL INFARCTION. THE UPPER REFERENCE LIMIT (URL) OF TROPONIN, DEFINED THE 99TH PERCENTILE OF cTnI DISTRIBUTION IN A REFERENCE POPULATION, HAS BEEN CONFIRMED THE DECISION THRESHOLD FOR [place] DIAGNOSIS. Performed By: #### H STROPN #### [facility] [address] [place], [place] [address] Dr. Celina Venegas HSTROP 109.5 pg/mL Critically high 4.0-51.3 [facility] Comment on above: Result Comment: CUT- OFF POINTS HAVE BEEN ESTABLISHED BASED ON THE FOURTH UNIVERSAL DEFINITIONS OF MYOCARDIAL INFARCTION. THE UPPER REFERENCE LIMIT (URL) OF TROPONIN, DEFINED THE 99TH PERCENTILE OF cTnI DISTRIBUTION IN A REFERENCE POPULATION, HAS BEEN CONFIRMED THE DECISION THRESHOLD FOR [place] DIAGNOSIS. Performed By: #### C BC #### [facility] [address] [address] [address] Celina Venegas XR CHEST 1 Von [...] by: GABRIELLA TESFAYE Date: 2022-10-06 18:46 Normal [facility] XR CHEST 1 V EXAM: [...] JUAN LUIS LOVE Date: 2022-10-06 18:22 Normal [facility] GGTon 09-22-2022 Gamma glutamyl transferase [Catalytic activity/Vol] 80 U/L Critically high 8-55 [facility] Comment on above: Performed By: #### H STROPN #### [facility] Laboratory [address] [address] [address] Celina Venegas LIPID PROFILEon 09-22-2022 CHOL-HDL RATIO NORM SEE BELOW Normal [facility] Comment on above: Result Comment: 3.3 - 4.4 LOW RISK 4.4 - 7.1 AVERAGE RISK 7.1 - 11.0 MODERATE RISK >11.0 HIGH RISK Performed By: #### H STROPN #### [facility] [address] [address] [address] Celina Venegas Cholesterol [Mass/Vol] 162 mg/dL Normal <=200 Th [facility] Comment on above: Performed By: #### H STROPN #### [facility] [address] [address] [address] Celina Venegas Cholesterol in HDL [Mass/Vol] 41 mg/dL Normal 40-60 [facility] Comment on above: Performed By: #### H STROPN #### [facility] [address] [address] [address] Celina Venegas Cholesterol in LDL [Mass/Vol] 90.8 mg/dL Normal [facility] Comment on above: Performed By: #### H STROPN #### [facility] [address] [address] [address] Celina Venegas Cholesterol.total/Kelly sterol in HDL [Mass ratio] 4.0 {ratio} Normal [facility] Comment on above: Performed By: #### H STROPN #### [facility] [address] [address] [address] Celina Venegas HDL NORMAL > or = 60 mg/dl - LO W CARDIOVASCULAR RISK <40 mg/dl - HIGH CARDIOVASCULAR RISK Normal [facility] Comment on above: Performed By: #### H STROPN #### [facility] [address] [place] [address] Dr. Celina Venegas LDL CALC NORMAL SEE BELOW Normal [facility] Comment on above: Result Comment: <100 mg/dl OPTIMAL 100 - 129 mg/dl NEAR OR ABOVE OPTIMAL 130 - 159 mg/dl BORDERLINE HIGH 160 - 189 mg/dl HIGH >190 mg/dl VERY HIGH Performed By: #### H STROPN #### [facility] [address] [address] [address] Celina Venegas Triglyceride [Mass/Vol] 151 mg/dL Critically high <=150 [facility] Comment on above: Performed By: #### H STROPN #### [facility] [address] [address] [address] Celina Venegas VLDL CALC 30.2 mg/dL Normal [facility] Comment on above: Performed By: #### H STROPN #### [facility] [address] [address] [address] Celina Venegas XR CHEST 2 Von [...] by: THADDEUS LO Date: 2022-09-22 10:58 Normal [facility] STOOL CULTUREon 09-11-2022 Campylobacter Culture Final report Normal [facility] Comment on above: Performed By: #### M G, BNP, CMP #### [facility] [address] [address] [address] Celina Venegas E coli Shiga Toxin EIA Negative Normal Negative [facility] Comment on above: Performed By: #### M G, BNP, CMP #### [facility] [address] [address] [address] Celina Venegas Result 1 Comment Normal [facility] Comment on above: Result Comment: No S almonella or Shigella recovered. Performed By: #### M G, BNP, CMP #### [facility] [address] [place] [address] Dr. Celina Venegas Result Comment: No C ampylobacter species isolated. Salmonella/Shigella Screen Final report Normal [facility] Comment on above: Performed By: #### M G, BNP, CMP #### [facility] [address] [place] [address] Dr. Celina Venegas CBC AUTO DIFFon 09-08-2022 BASO # 0.0 103/ul Normal 0.0-0.1 [facility] Comment on above: Performed By: #### M G, BNP, CMP #### [facility] [address] [place] [address] Dr. Celina Venegas Basophils/100 WBC (Bld) 0.1 % Critically low 0.2-2.0 [facility] Comment on above: Performed By: #### M G, BNP, CMP #### [facility] [address] [place] [address] Dr. Celina Venegas EO # 0.3 103/ul Normal 0.0-0.7 [facility] Comment on above: Performed By: #### M G, BNP, CMP #### [facility] [address] [place] [address] Dr. Celina Venegas Eosinophils/100 WBC (Bld) 3.6 % Normal 0.9-7.0 [facility] Comment on above: Performed By: #### M G, BNP, CMP #### [facility] [address] [place] [address] Dr. Celina Venegas Erythrocyte distribution width (RBC) [Ratio] 13.9 % Normal 11.0-15.0 [facility] Comment on above: Performed By: #### M G, BNP, CMP #### [facility] [address] [place] [address] Dr. Celina Venegas Hematocrit (Bld) [Volume fraction] 28.9 % Critically low 36.0-48.0 [facility] Comment on above: Performed By: #### M G, BNP, CMP #### [facility] [address] [address] [address] Celina Venegas Hemoglobin (Bld) [Mass/Vol] 8.8 g/dL Critically low 12.0-16.0 [facility] Comment on above: Performed By: #### M G, BNP, CMP #### [facility] [address] [address] [address] Celina Venegas IG # 0.03 10e3/ul Normal 0.00-0.03 [facility] Comment on above: Performed By: #### M G, BNP, CMP #### [facility] [address] [address] [address] Celina Venegas IG % 0.4 % Normal 0.0-0.5 [facility] Comment on above: Performed By: #### M G, BNP, CMP #### [facility] [address] [place] [address] Dr. Celina Venegas LYMPH # 0.8 103/ul Critically low 1.2-3.8 [facility] Comment on above: Performed By: #### M G, BNP, CMP #### [facility] [address] [place] [address] Dr. Celina Venegas Lymphocytes/100 WBC (Bld) 10.5 % Critically low 20.5-60.0 [facility] Comment on above: Performed By: #### M G, BNP, CMP #### [facility] [address] [place] [address] Dr. Celina Venegas MANUAL DIFF REQ NO Normal [facility] Comment on above: Performed By: #### M G, BNP, CMP #### [facility] [address] [place] [address] Dr. Celina Venegas MCH (RBC) [Entitic mass] 24.9 pg Critically low 26.7-34.0 [facility] Comment on above: Performed By: #### M G, BNP, CMP #### [facility] [address] [place] [address] Dr. Celina Venegas MCHC (RBC) [Mass/Vol] 30.4 g/dL Normal 29.9-35.2 [facility] Comment on above: Performed By: #### M G, BNP, CMP #### [facility] [address] [place] [address] Dr. Celina Venegas MCV (RBC) [Entitic vol] 81.9 fL Normal 81.0-99.0 [facility] Comment on above: Performed By: #### M G, BNP, CMP #### [facility] [address] [place] [address] Dr. Celina Venegas MONO # 0.6 103/ul Normal 0.3-0.8 [facility] Comment on above: Performed By: #### M G, BNP, CMP #### [facility] [address] [place] [address] Dr. Celina Venegas Monocytes/100 WBC (Bld) 7.8 % Normal 1.7-12.0 [facility] Comment on above: Performed By: #### M G, BNP, CMP #### [facility] [address] [place] [address] Dr. Celina Venegas NEUT # 5.5 103/ul Normal 1.4-6.5 [facility] Comment on above: Performed By: #### M G, BNP, CMP #### [facility] [address] [place] [address] Dr. Celina Venegas Neutrophils/100 WBC (Bld) 77.6 % Critically high 43.0-75.0 [facility] Comment on above: Performed By: #### M G, BNP, CMP #### [facility] [address] [place] [address] Dr. Celina Venegas Platelet mean volume (Bld) [Entitic vol] 10.8 fL Normal 9.5-13.5 [facility] Comment on above: Performed By: #### M G, BNP, CMP #### [facility] [address] [place] [address] Dr. Celina Venegas PLT 256 103/ul Normal 150-450 [facility] Comment on above: Performed By: #### M G, BNP, CMP #### [facility] [address] [place] [address] Dr. Celina Venegas RBC 3.53 106/ul Critically low 4.20-5.40 [facility] Comment on above: Performed By: #### M G, BNP, CMP #### [facility] [address] [place] [address] Dr. Celina Venegas WBC 7.1 103/ul Normal 4.0-11.0 [facility] Comment on above: Performed By: #### M G, BNP, CMP #### [facility] [address] [place] [address] Dr. Celina Venegas Consultation Noteon 09-09-19 23 Consultation Note [id number] Normal [facility] MAGNESIUMon 09-08-2022 Magnesium [Mass/Vol] 1.1 mg/dL Critically low 1.8-2.4 [facility] Comment on above: Performed By: #### B [id number] #### [facility] [address] [place] [address] Dr. Celina Venegas PROF CHEM 8 (BAS METB)on Anion gap [Moles/Vol] 13.5 mmol/L Normal [facility] Comment on above: Performed By: #### B [id number] #### [facility] [address] [place] [address] Dr. Celina Venegas Calcium [Mass/Vol] 8.7 mg/dL Normal 8.5-10.1 [facility] Comment on above: Performed By: #### B [id number] #### [facility] [address] [place] [address] Dr. Celina Venegas Chloride [Moles/Vol] 108 mmol/L Critically high 98-107 [facility] Comment on above: Performed By: #### B [id number] #### [facility] [address] [place] [address] Dr. Celina Venegas CO2 [Moles/Vol] 22.5 mmol/L Normal 21.0-32.0 [facility] Comment on above: Performed By: #### B [email or web address] #### [facility] [address] [address] [address] Celina Venegas Creatinine [Mass/Vol] 0.65 mg/dL Normal 0.55-1.02 [facility] Comment on above: Performed By: #### B LDCX1 #### [facility] [address] [address] [address] Celina Venegas EGFR-AF TURKS AND CAICOS ISLANDER >60 Normal >=60 [facility] Comment on above: Performed By: #### B LDCX1 #### [facility] [address] [address] [address] Celina Venegas EGFR-NON AF TURKS AND CAICOS ISLANDER >60 Normal >=60 [facility] Comment on above: Performed By: #### B [email or web address] #### [facility] [address] [address] [address] Celina Venegas Glucose [Mass/Vol] 98 mg/dL Normal 74-106 [facility] Comment on above: Performed By: #### B [email or web address] #### [facility] [address] [address] [address] Celina Venegas Potassium [Moles/Vol] 3.0 mmol/L Critically low 3.5-5.1 [facility] Comment on above: Performed By: #### B [email or web address] #### [facility] [address] [place] [address] Dr. Celina Venegas Sodium [Moles/Vol] 141 mmol/L Normal 136-145 [facility] Comment on above: Performed By: #### B [email or web address] #### [facility] [address] [address] [address] Celina Venegas Urea nitrogen [Mass/Vol] 14.0 mg/dL Normal 7.0-18.0 [facility] Comment on above: Performed By: #### B LDCX1 #### [facility] [address] [address] [address] Celina Venegas Urea nitrogen/Creatinine [Mass ratio] 21.5 mg/mg Normal [facility] Comment on above: Performed By: #### B [email or web address] #### [facility] [address] [place] [address] Dr. Celina Venegas CBC AUTO DIFFon 09-07-2022 BASO # 0.0 103/ul Normal 0.0-0.1 [facility] Comment on above: Performed By: #### B LDCX2 #### [facility] [address] [place] [address] Dr. Celina Venegas Basophils/100 WBC (Bld) 0.2 % Normal 0.2-2.0 [facility] Comment on above: Performed By: #### B LDCX2 #### [facility] [address] [place] [address] Dr. Celina Venegas EO # 0.1 103/ul Normal 0.0-0.7 [facility] Comment on above: Performed By: #### B LDCX2 #### [facility] [address] [place] [address] Dr. Celina Venegas Eosinophils/100 WBC (Bld) 0.9 % Normal 0.9-7.0 [facility] Comment on above: Performed By: #### B [id number] #### [facility] [address] [place] [address] Dr. Celina Venegas Erythrocyte distribution width (RBC) [Ratio] 14.0 % Normal 11.0-15.0 [facility] Comment on above: Performed By: #### B LDCX2 #### [facility] [address] [place] [address] Dr. Celina Venegas Hematocrit (Bld) [Volume fraction] 31.7 % Critically low 36.0-48.0 [facility] Comment on above: Performed By: #### B LDCX2 #### [facility] [address] [place] [address] Dr. Celina Venegas Hemoglobin (Bld) [Mass/Vol] 9.2 g/dL Critically low 12.0-16.0 [facility] Comment on above: Performed By: #### B LDCX2 #### [facility] [address] [place] [address] Dr. Celina Venegas IG # 0.04 10e3/ul Critically high 0.00-0.03 [facility] Comment on above: Performed By: #### B LDCX2 #### [facility] [address] [address] [address] Celina Venegas IG % 0.4 % Normal 0.0-0.5 [facility] Comment on above: Performed By: #### B LDCX2 #### [facility] [address] [address] [address] Celina Venegas LYMPH # 0.8 103/ul Critically low 1.2-3.8 [facility] Comment on above: Performed By: #### B LDCX2 #### [facility] [address] [place] [address] Dr. Celina Venegsa Lymphocytes/100 WBC (Bld) 8.7 % Critically low 20.5-60.0 [facility] Comment on above: Performed By: #### B LDCX2 #### [facility] [address] [place] [address] Dr. Celina Venegas MANUAL DIFF REQ NO Normal [facility] Comment on above: Performed By: #### B LDCX2 #### [facility] [address] [place] [address] Dr. Celina Venegas MCH (RBC) [Entitic mass] 25.7 pg Critically low 26.7-34.0 [facility] Comment on above: Performed By: #### B [id number] #### [facility] [address] [place] [address] Dr. Celina Venegas MCHC (RBC) [Mass/Vol] 29.0 g/dL Critically low 29.9-35.2 [facility] Comment on above: Performed By: #### B LDCX2 #### [facility] [address] [place] [address] Dr. Celina Venegas MCV (RBC) [Entitic vol] 88.5 fL Normal 81.0-99.0 [facility] Comment on above: Performed By: #### B [id number] #### [facility] [address] [place] [address] Dr. Celina Venegas MONO # 0.5 103/ul Normal 0.3-0.8 [facility] Comment on above: Performed By: #### B LDCX2 #### [facility] [address] [place] [address] Dr. Celina Venegas Monocytes/100 WBC (Bld) 5.2 % Normal 1.7-12.0 [facility] Comment on above: Performed By: #### B LDCX2 #### [facility] [address] [place] [address] Dr. Celina Venegas NEUT # 7.9 103/ul Critically high 1.4-6.5 [facility] Comment on above: Performed By: #### B LDCX2 #### [facility] [address] [place] [address] Dr. Celina Venegas Neutrophils/100 WBC (Bld) 84.6 % Critically high 43.0-75.0 [facility] Comment on above: Performed By: #### B LDCX2 #### [facility] [address] [place] [address] Dr. Celina Venegas Platelet mean volume (Bld) [Entitic vol] 10.9 fL Normal 9.5-13.5 [facility] Comment on above: Performed By: #### B LDCX2 #### [facility] [address] [place] [address] Dr. Celina Venegas PLT 240 103/ul Normal 150-450 [facility] Comment on above: Performed By: #### B LDCX2 #### [facility] [address] [place] [address] Dr. Celina Venegas RBC 3.58 106/ul Critically low 4.20-5.40 [facility] Comment on above: Performed By: #### B LDCX2 #### [facility] [address] [place] [address] Dr. Celina Venegas WBC 9.3 103/ul Normal 4.0-11.0 [facility] Comment on above: Performed By: #### B LDCX2 #### [facility] [address] [place] [address] ABD/PELV W CONon 09-08-[address] ABD/PELV W CON EXAMINATION: CT ABD/PELV [...] by: THADDEUS LO Date: 2022-09-07 10:55 Normal [facility] MAGNESIUMon 09-07-2022 Magnesium [Mass/Vol] 1.6 mg/dL Critically low 1.8-2.4 [facility] Comment on above: Performed By: #### M G, BNP, CMP #### [facility] [address] [place] [address] Dr. Celina Venegas PROF CHEM 8 (BAS METB)on Anion gap [Moles/Vol] 11.6 mmol/L Normal [facility] Comment on above: Performed By: #### M G, BNP, CMP #### [facility] [address] [address] [address] Celina Venegas Calcium [Mass/Vol] 9.5 mg/dL Normal 8.5-10.1 [facility] Comment on above: Performed By: #### M G, BNP, CMP #### [facility] [address] [address] [address] Celina Venegas Chloride [Moles/Vol] 109 mmol/L Critically high 98-107 [facility] Comment on above: Performed By: #### M G, BNP, CMP #### [facility] [address] [address] [address] Celina Venegas CO2 [Moles/Vol] 23.2 mmol/L Normal 21.0-32.0 [facility] Comment on above: Performed By: #### M G, BNP, CMP #### [facility] [address] [address] [address] Celina Venegas Creatinine [Mass/Vol] 0.72 mg/dL Normal 0.55-1.02 [facility] Comment on above: Performed By: #### M G, BNP, CMP #### [facility] [address] [address] [address] Celina Venegas EGFR-AF TURKS AND CAICOS ISLANDER >60 Normal >=60 [facility] Comment on above: Performed By: #### M G, BNP, CMP #### [facility] [address] [address] [address] Celina Venegas EGFR-NON AF TURKS AND CAICOS ISLANDER >60 Normal >=60 [facility] Comment on above: Performed By: #### M G, BNP, CMP #### [facility] [address] [address] [address] Celina Venegas Glucose [Mass/Vol] 79 mg/dL Normal 74-106 [facility] Comment on above: Performed By: #### M G, BNP, CMP #### [facility] [address] [address] [address] Celina Venegas Potassium [Moles/Vol] 3.8 mmol/L Normal 3.5-5.1 [facility] Comment on above: Performed By: #### M G, BNP, CMP #### [facility] [address] [place] [address] Dr. Celina Venegas Sodium [Moles/Vol] 140 mmol/L Normal 136-145 [facility] Comment on above: Performed By: #### M G, BNP, CMP #### [facility] [address] [place] [address] Dr. Celina Venegas Urea nitrogen [Mass/Vol] 17.0 mg/dL Normal 7.0-18.0 [facility] Comment on above: Performed By: #### M G, BNP, CMP #### [facility] [address] [place] [address] Dr. Celina Venegas Urea nitrogen/Creatinine [Mass ratio] 23.6 mg/mg Normal [facility] Comment on above: Performed By: #### M G, BNP, CMP #### [facility] [address] [place] [address] Dr. Celina Venegas CBC AUTO DIFFon 09-06-2022 BASO # 0.0 103/ul Normal 0.0-0.1 [facility] Comment on above: Performed By: #### M G, BNP, CMP #### [facility] [address] [place] [address] Dr. Celina Venegas Basophils/100 WBC (Bld) 0.2 % Normal 0.2-2.0 [facility] Comment on above: Performed By: #### M G, BNP, CMP #### [facility] [address] [place] [address] Dr. Celina Venegas EO # 0.0 103/ul Normal 0.0-0.7 [facility] Comment on above: Performed By: #### M G, BNP, CMP #### [facility] [address] [place] [address] Dr. Celina Venegas Eosinophils/100 WBC (Bld) 0.2 % Critically low 0.9-7.0 [facility] Comment on above: Performed By: #### M G, BNP, CMP #### [facility] [address] [address] [address] Celina Venegas Erythrocyte distribution width (RBC) [Ratio] 13.9 % Normal 11.0-15.0 [facility] Comment on above: Performed By: #### M G, BNP, CMP #### [facility] [address] [place] [address] Dr. Celina Venegas Hematocrit (Bld) [Volume fraction] 30.6 % Critically low 36.0-48.0 [facility] Comment on above: Performed By: #### M G, BNP, CMP #### [facility] [address] [address] [address] Celina Venegas Hemoglobin (Bld) [Mass/Vol] 9.2 g/dL Critically low 12.0-16.0 [facility] Comment on above: Performed By: #### M G, BNP, CMP #### [facility] [address] [place] [address] Dr. Celina Venegas IG # 0.07 10e3/ul Critically high 0.00-0.03 [facility] Comment on above: Performed By: #### M G, BNP, CMP #### [facility] [address] [address] [address] Celina Venegas IG % 0.6 % Critically high 0.0-0.5 [facility] Comment on above: Performed By: #### M G, BNP, CMP #### [facility] [address] [place] [address] Dr. Celina Venegas LYMPH # 0.7 103/ul Critically low 1.2-3.[address] [facility] Comment on above: Performed By: #### M G, BNP, CMP #### [facility] [address] [address] [address] Celina Venegas Lymphocytes/100 WBC (Bld) 5.4 % Critically low 20.5-60.0 [facility] Comment on above: Performed By: #### M G, BNP, CMP #### [facility] [address] [place] [address] Dr. Celina Venegas MANUAL DIFF REQ NO Normal [facility] Comment on above: Performed By: #### M G, BNP, CMP #### [facility] [address] [place] [address] Dr. Celina Venegas MCH (RBC) [Entitic mass] 25.1 pg Critically low 26.7-34.0 [facility] Comment on above: Performed By: #### M G, BNP, CMP #### [facility] [address] [place] [address] Dr. Celina Venegas MCHC (RBC) [Mass/Vol] 30.1 g/dL Normal 29.9-35.2 [facility] Comment on above: Performed By: #### M G, BNP, CMP #### [facility] [address] [place] [address] Dr. Celina Venegas MCV (RBC) [Entitic vol] 83.6 fL Normal 81.0-99.0 [facility] Comment on above: Performed By: #### M G, BNP, CMP #### [facility] [address] [place] [address] Dr. Celina Venegas MONO # 0.5 103/ul Normal 0.3-0.8 [facility] Comment on above: Performed By: #### M G, BNP, CMP #### [facility] [address] [place] [address] Dr. Celina Venegas Monocytes/100 WBC (Bld) 3.6 % Normal 1.7-12.0 [facility] Comment on above: Performed By: #### M G, BNP, CMP #### [facility] [address] [place] [address] Dr. Celina Veengas NEUT # 11.4 103/ul Critically high 1.4-6.5 [facility] Comment on above: Performed By: #### M G, BNP, CMP #### [facility] [address] [place] [address] Dr. Celina Venegas Neutrophils/100 WBC (Bld) 90.0 % Critically high 43.0-75.0 [facility] Comment on above: Performed By: #### M G, BNP, CMP #### [facility] [address] [place] [address] Dr. Celina Venegas Platelet mean volume (Bld) [Entitic vol] 10.5 fL Normal 9.5-13.5 [facility] Comment on above: Performed By: #### M G, BNP, CMP #### [facility] [address] [place] [address] Dr. Celina Venegsa PLT 281 103/ul Normal 150-450 [facility] Comment on above: Performed By: #### M G, BNP, CMP #### [facility] [address] [address] [address] Celina Venegas RBC 3.66 106/ul Critically low 4.20-5.40 [facility] Comment on above: Performed By: #### M G, BNP, CMP #### [facility] [facility] [address] [place] [address] Dr. Celina Venegas WBC 12.7 103/ul Critically high 4.0-11.0 [facility] Comment on above: Performed By: #### M G, BNP, CMP #### [facility] [address] [place] [address] Dr. Celina Venegas LIVER PROFILEon 09-06-2022 Albumin [Mass/Vol] 2.4 g/dL Critically low 3.4-5.0 [facility] Comment on above: Performed By: #### M G, BNP, CMP #### [facility] [address] [place] [address] Dr. Celina Venegas Albumin/Globulin [Mass ratio] 0.6 {ratio} Normal [facility] Comment on above: Performed By: #### M G, BNP, CMP #### [facility] [address] [place] [address] Dr. Celina Venegas ALP [Catalytic activity/Vol] 118 U/L Critically high 46-116 [facility] Comment on above: Performed By: #### M G, BNP, CMP #### [facility] [address] [place] [address] Dr. Celina Venegas ALT [Catalytic activity/Vol] 16 U/L Normal 14-59 [facility] Comment on above: Performed By: #### M G, BNP, CMP #### [facility] [address] [place] [address] Dr. Celina Venegas AST [Catalytic activity/Vol] 11 U/L Critically low 15-37 [facility] Comment on above: Performed By: #### M G, BNP, CMP #### [facility] [address] [place] [address] Dr. Celina Venegas BILI, CONJUGATED 0.6 mg/dL Critically high 0.0-0.2 [facility] Comment on above: Performed By: #### M G, BNP, CMP #### [facility] [address] [place] [address] Dr. Celina Venegas Bilirubin [Mass/Vol] 1.2 mg/dL Critically high 0.2-1.0 [facility] Comment on above: Performed By: #### M G, BNP, CMP #### [facility] [address] [place] [address] Dr. Celina Venegas Globulin (S) [Mass/Vol] 3.7 g/dL Normal [facility] Comment on above: Performed By: #### M G, BNP, CMP #### [facility] [address] [place] [address] Dr. Celina Venegas Protein [Mass/Vol] 6.1 g/dL Critically low 6.4-8.2 [facility] Comment on above: Performed By: #### M G, BNP, CMP #### [facility] [address] [place] [address] Dr. Celina Venegas MAGNESIUMon 09-06-2022 Magnesium [Mass/Vol] 1.4 mg/dL Critically low 1.8-2.4 [facility] Comment on above: Performed By: #### M G, BNP, CMP #### [facility] [address] [place] [address] Dr. Celina Venegas PROF CHEM 8 (BAS METB)on Anion gap [Moles/Vol] 12.5 mmol/L Normal [facility] Comment on above: Performed By: #### M G, BNP, CMP #### [facility] [address] [place] [address] Dr. Celina Venegas Calcium [Mass/Vol] 9.3 mg/dL Normal 8.5-10.1 [facility] Comment on above: Performed By: #### M G, BNP, CMP #### [facility] [address] [address] [address] Celina Venegas Chloride [Moles/Vol] 105 mmol/L Normal 98-107 [facility] Comment on above: Performed By: #### M G, BNP, CMP #### [facility] [address] [address] [address] Celina Venegas CO2 [Moles/Vol] 23.6 mmol/L Normal 21.0-32.0 [facility] Comment on above: Performed By: #### M G, BNP, CMP #### [facility] [address] [address] [address] Celina Venegas Creatinine [Mass/Vol] 0.80 mg/dL Normal 0.55-1.02 [facility] Comment on above: Performed By: #### M G, BNP, CMP #### [facility] [address] [address] [address] Celina Venegas EGFR-AF TURKS AND CAICOS ISLANDER >60 Normal >=60 The [facility] Comment on above: Performed By: #### M G, BNP, CMP #### [facility] [address] [address] [address] Celina Venegas EGFR-NON AF TURKS AND CAICOS ISLANDER >60 Normal >=60 [facility] Comment on above: Performed By: #### M G, BNP, CMP #### [facility] [address] [address] [address] Celina Venegas Glucose [Mass/Vol] 106 mg/dL Normal 74-106 [facility] Comment on above: Performed By: #### M G, BNP, CMP #### [facility] [address] [address] [address] Celina Venegas Potassium [Moles/Vol] 3.1 mmol/L Critically low 3.5-5.1 [facility] Comment on above: Performed By: #### M G, BNP, CMP #### [facility] [address] [address] [address] Celina Venegas Sodium [Moles/Vol] 138 mmol/L Normal 136-145 [facility] Comment on above: Performed By: #### M G, BNP, CMP #### [facility] [address] [address] [address] Celina Venegas Urea nitrogen [Mass/Vol] 19.0 mg/dL Critically high 7.0-18.0 [facility] Comment on above: Performed By: #### M G, BNP, CMP #### [facility] [address] [address] [address] Celina Venegas Urea nitrogen/Creatinine [Mass ratio] 23.8 mg/mg Normal [facility] Comment on above: Performed By: #### M G, BNP, CMP #### [facility] [address] [address] [address] Celina Venegas XR ABD FLAT UP_PA [...] by: THADDEUS LO Date: 2022-09-06 17:36 Normal [facility] CBC AUTO DIFFon 09-05-2022 BASO # 0.0 103/ul Normal 0.0-0.1 [facility] Comment on above: Performed By: #### C BC #### [facility] [address] [address] [address] Celina Venegas Basophils/100 WBC (Bld) 0.1 % Critically low 0.2-2.0 [facility] Comment on above: Performed By: #### C BC #### [facility] [address] [address] [address] Celina Venegas EO # 0.0 103/ul Normal 0.0-0.7 [facility] Comment on above: Performed By: #### C BC #### [facility] [address] [place] [address] Dr. Celina Venegas Eosinophils/100 WBC (Bld) 0.0 % Critically low 0.9-7.0 [facility] Comment on above: Performed By: #### C BC #### [facility] [address] [place] [address] Dr. Celina Venegas Erythrocyte distribution width (RBC) [Ratio] 13.8 % Normal 11.0-15.0 [facility] Comment on above: Performed By: #### C BC #### [facility] [address] [place] [address] Dr. Celina Venegas Hematocrit (Bld) [Volume fraction] 35.8 % Critically low 36.0-48.0 [facility] Comment on above: Performed By: #### C BC #### [facility] [address] [place] [address] Dr. Celina Venegas Hemoglobin (Bld) [Mass/Vol] 11.1 g/dL Critically low 12.0-16.0 [facility] Comment on above: Performed By: #### C BC #### [facility] [address] [place] [address] Dr. Celina Venegas IG # 0.08 10e3/ul Critically high 0.00-0.03 [facility] Comment on above: Performed By: #### C BC #### [facility] [address] [place] [address] Dr. Celina Venegas IG % 0.4 % Normal 0.0-0.5 [facility] Comment on above: Performed By: #### C BC #### [facility] [address] [place] [address] Dr. Celina Venegas LYMPH # 0.6 103/ul Critically low 1.2-3.[address] [facility] Comment on above: Performed By: #### C BC #### [facility] [address] [place] [address] Dr. Celina Venegas Lymphocytes/100 WBC (Bld) 3.4 % Critically low 20.5-60.0 [facility] Comment on above: Performed By: #### C BC #### [facility] [address] [place] [address] Dr. Celina Venegas MANUAL DIFF REQ NO Normal [facility] Comment on above: Performed By: #### C BC #### [facility] [address] [place] [address] Dr. Celina Venegas MCH (RBC) [Entitic mass] 25.5 pg Critically low 26.7-34.0 [facility] Comment on above: Performed By: #### C BC #### [facility] [address] [place] [address] Dr. Celina Venegas MCHC (RBC) [Mass/Vol] 31.0 g/dL Normal 29.9-35.2 [facility] Comment on above: Performed By: #### C BC #### [facility] [address] [place] [address] Dr. Celina Venegas MCV (RBC) [Entitic vol] 82.1 fL Normal 81.0-99.0 [facility] Comment on above: Performed By: #### C BC #### [facility] [address] [place] [address] Dr. Celina Venegas MONO # 0.5 103/ul Normal 0.3-0.8 [facility] Comment on above: Performed By: #### C BC #### [facility] [address] [place] [address] Dr. Celina Venegas Monocytes/100 WBC (Bld) 2.9 % Normal 1.7-12.0 [facility] Comment on above: Performed By: #### C BC #### [facility] [address] [place] [address] Dr. Celina Venegas NEUT # 17.3 103/ul Critically high 1.4-6.5 [facility] Comment on above: Performed By: #### C BC #### [facility] [address] [place] [address] Dr. Celina Venegas Neutrophils/100 WBC (Bld) 93.2 % Critically high 43.0-75.0 [facility] Comment on above: Performed By: #### C BC #### [facility] [address] [place] [address] Dr. Celina Venegas Platelet mean volume (Bld) [Entitic vol] 10.1 fL Normal 9.5-13.5 [facility] Comment on above: Performed By: #### C BC #### [facility] [address] [place] [address] Dr. Celina Venegas PLT 367 103/ul Normal 150-450 [facility] Comment on above: Performed By: #### C BC #### [facility] [address] [place] [address] Dr. Celina Venegas RBC 4.36 106/ul Normal 4.20-5.40 [facility] Comment on above: Performed By: #### C BC #### [facility] [address] [place] [address] Dr. Celina Venegas WBC 18.6 103/ul Critically high 4.0-11.0 [facility] Comment on above: Performed By: #### C BC #### [facility] [address] [place] [address] Dr. Celina Venegas LIVER PROFILEon 09-05-2022 Albumin [Mass/Vol] 3.0 g/dL Critically low 3.4-5.0 [facility] Comment on above: Performed By: #### H STROPN #### [facility] [address] [place] [address] Dr. Celina Venegas Albumin/Globulin [Mass ratio] 0.7 {ratio} Normal [facility] Comment on above: Performed By: #### H STROPN #### [facility] [address] [place] [address] Dr. Celina Venegas ALP [Catalytic activity/Vol] 132 U/L Critically high 46-116 [facility] Comment on above: Performed By: #### H STROPN #### [facility] [address] [place] [address] Dr. Celina Venegas ALT [Catalytic activity/Vol] 20 U/L Normal 14-59 [facility] Comment on above: Performed By: #### H STROPN #### [facility] [address] [place] [address] Dr. Celina Venegas AST [Catalytic activity/Vol] 15 U/L Normal 15-37 [facility] Comment on above: Performed By: #### H STROPN #### [facility] [address] [place] [address] Dr. Celina Venegas BILI, CONJUGATED 0.7 mg/dL Critically high 0.0-0.2 [facility] Comment on above: Performed By: #### H STROPN #### [facility] [address] [place] [address] Dr. Celina Venegas Bilirubin [Mass/Vol] 1.4 mg/dL Critically high 0.2-1.0 [facility] Comment on above: Performed By: #### H STROPN #### [facility] [address] [place] [address] Dr. Celina Venegas Globulin (S) [Mass/Vol] 4.1 g/dL Normal [facility] Comment on above: Performed By: #### H STROPN #### [facility] [address] [place] [address] Dr. Celina Venegas Protein [Mass/Vol] 7.1 g/dL Normal 6.4-8.2 [facility] Comment on above: Performed By: #### H STROPN #### [facility] [address] [place] [address] Dr. Celina Venegas MAGNESIUMon 09-05-2022 Magnesium [Mass/Vol] 1.5 mg/dL Critically low 1.8-2.4 [facility] Comment on above: Performed By: #### C BC #### [facility] [address] [place] [address] Dr. Celina Venegas MRI ABDOMEN WO CONon [...] THADDEUS LO Date: 2022-09-05 13:29 Normal [facility] PROF CHEM 8 (BAS METB)on Anion gap [Moles/Vol] 13.5 mmol/L Normal [facility] Comment on above: Performed By: #### C BC #### [facility] [address] [place] [address] Dr. Celina Venegas Calcium [Mass/Vol] 8.8 mg/dL Normal 8.5-10.1 [facility] Comment on above: Performed By: #### C BC #### [facility] [address] [address] [address] Celina Venegas Chloride [Moles/Vol] 106 mmol/L Normal 98-107 [facility] Comment on above: Performed By: #### C BC #### [facility] [address] [address] [address] Celina Venegas CO2 [Moles/Vol] 24.0 mmol/L Normal 21.0-32.0 [facility] Comment on above: Performed By: #### C BC #### [facility] [address] [address] [address] Celina Venegas Creatinine [Mass/Vol] 1.31 mg/dL Critically high 0.55-1.02 [facility] Comment on above: Performed By: #### C BC #### [facility] [address] [address] [address] Celina Venegas EGFR-AF TURKS AND CAICOS ISLANDER 51 mL/min/1.73m2 Critically low >=60 [facility] Comment on above: Performed By: #### C BC #### [facility] [address] [address] [address] Celina Venegas EGFR-NON AF TURKS AND CAICOS ISLANDER 42 mL/min/1.73m2 Critically low >=60 [facility] Comment on above: Performed By: #### C BC #### [facility] [address] [address] [address] Celina Venegas Glucose [Mass/Vol] 127 mg/dL Critically high 74-106 [facility] Comment on above: Performed By: #### C BC #### [facility] [address] [address] [address] Celina Venegas Potassium [Moles/Vol] 3.5 mmol/L Normal 3.5-5.1 [facility] Comment on above: Performed By: #### C BC #### [facility] [address] [address] [address] Celina Venegas Sodium [Moles/Vol] 140 mmol/L Normal 136-145 [facility] Comment on above: Performed By: #### C BC #### [facility] [address] [address] [address] Celina Venegas Urea nitrogen [Mass/Vol] 40.0 mg/dL Critically high 7.0-18.0 [facility] Comment on above: Performed By: #### C BC #### [facility] [address] [address] [address] Celina Venegas Urea nitrogen/Creatinine [Mass ratio] 30.5 mg/mg Normal [facility] Comment on above: Performed By: #### C BC #### [facility] [address] [address] [address] Celina Venegas TROPONIN, HIGH SENSITIVITYon 09-05-2022 HSTROP 48.5 pg/mL Normal 4.0-51.3 [facility] Comment on above: Result Comment: CUT- OFF POINTS HAVE BEEN ESTABLISHED BASED ON THE FOURTH UNIVERSAL DEFINITIONS OF MYOCARDIAL INFARCTION. THE UPPER REFERENCE LIMIT (URL) OF TROPONIN, DEFINED THE 99TH PERCENTILE OF cTnI DISTRIBUTION IN A REFERENCE POPULATION, HAS BEEN CONFIRMED THE DECISION THRESHOLD FOR [place] DIAGNOSIS. Performed By: #### B [id number] #### [facility] [address] [place] [address] Dr. Celina Venegas AMYLASEon 09-04-2022 Amylase [Catalytic activity/Vol] 65 U/L Normal 25-115 [facility] Comment on above: Performed By: #### M G, BNP, CMP #### [facility] [address] [place] [address] Dr. Celina Venegas CBC AUTO DIFFon 09-04-2022 BASO # 0.0 103/ul Normal 0.0-0.1 [facility] Comment on above: Performed By: #### B LDCX2 #### [facility] [address] [place] [address] Dr. Celina Venegas Basophils/100 WBC (Bld) 0.2 % Normal 0.2-2.0 [facility] Comment on above: Performed By: #### B LDCX2 #### [facility] [address] [place] [address] Dr. Celina Venegas EO # 0.0 103/ul Normal 0.0-0.7 [facility] Comment on above: Performed By: #### B LDCX2 #### [facility] [address] [place] [address] Dr. Celina Venegas Eosinophils/100 WBC (Bld) 0.2 % Critically low 0.9-7.0 [facility] Comment on above: Performed By: #### B LDCX2 #### [facility] [address] [place] [address] Dr. Celina Venegas Erythrocyte distribution width (RBC) [Ratio] 13.7 % Normal 11.0-15.0 [facility] Comment on above: Performed By: #### B LDCX2 #### [facility] [address] [place] [address] Dr. Celina Venegas Hematocrit (Bld) [Volume fraction] 41.7 % Normal 36.0-48.0 [facility] Comment on above: Performed By: #### B LDCX2 #### [facility] [address] [place] [address] Dr. Celina Venegas Hemoglobin (Bld) [Mass/Vol] 13.3 g/dL Normal 12.0-16.0 [facility] Comment on above: Performed By: #### B LDCX2 #### [facility] [address] [place] [address] Dr. Celina Venegas IG # 0.12 10e3/ul Critically high 0.00-0.03 [facility] Comment on above: Performed By: #### B LDCX2 #### [facility] [address] [place] [address] Dr. Celina Venegas IG % 0.6 % Critically high 0.0-0.5 [facility] Comment on above: Performed By: #### B LDCX2 #### [facility] [address] [place] [address] Dr. Celina Venegas LYMPH # 1.2 103/ul Normal 1.2-3.8 [facility] Comment on above: Performed By: #### B LDCX2 #### [facility] [address] [place] [address] Dr. Celina Venegas Lymphocytes/100 WBC (Bld) 5.7 % Critically low 20.5-60.0 [facility] Comment on above: Performed By: #### B LDCX2 #### [facility] [address] [place] [address] Dr. Celina Venegas MANUAL DIFF REQ NO Normal [facility] Comment on above: Performed By: #### B LDCX2 #### [facility] [address] [place] [address] Dr. Celina Venegas MCH (RBC) [Entitic mass] 25.3 pg Critically low 26.7-34.0 [facility] Comment on above: Performed By: #### B LDCX2 #### [facility] [address] [place] [address] Dr. Celina Venegas MCHC (RBC) [Mass/Vol] 31.9 g/dL Normal 29.9-35.2 [facility] Comment on above: Performed By: #### B LDCX2 #### [facility] [address] [place] [address] Dr. Celina Venegas MCV (RBC) [Entitic vol] 79.4 fL Critically low 81.0-99. 0 [facility] Comment on above: Performed By: #### B LDCX2 #### [facility] [address] [place] [address] Dr. Celina Venegas MONO # 1.0 103/ul Critically high 0.3-0.8 [facility] Comment on above: Performed By: #### B LDCX2 #### [facility] [address] [place] [address] Dr. Celina Venegas Monocytes/100 WBC (Bld) 4.5 % Normal 1.7-12.0 [facility] Comment on above: Performed By: #### B LDCX2 #### [facility] [address] [place] [address] Dr. Celina Venegas NEUT # 18.8 103/ul Critically high 1.4-6.5 [facility] Comment on above: Performed By: #### B LDCX2 #### [facility] [address] [place] [address] Dr. Celina Venegas Neutrophils/100 WBC (Bld) 88.8 % Critically high 43.0-75.0 [facility] Comment on above: Performed By: #### B LDCX2 #### [facility] [address] [place] [address] Dr. Celina Venegas Platelet mean volume (Bld) [Entitic vol] 10.0 fL Normal 9.5-13.5 [facility] Comment on above: Performed By: #### B LDCX2 #### [facility] [address] [place] [address] Dr. Celina Venegas PLT 563 103/ul Critically high 150-450 [facility] [place] Comment on above: Performed By: #### B LDCX2 #### [facility] [address] [place] [address] Dr. Celina Venegas RBC 5.25 106/ul Normal 4.20-5.40 [facility] Comment on above: Performed By: #### B LDCX2 #### [facility] [address] [place] [address] Dr. Celina Venegas WBC 21.2 103/ul Critically high 4.0-11.0 [facility] Comment on above: Performed By: #### B LDCX2 #### [facility] [address] [place], [place] [address] ABD/PELV W CONon [...] RAJ EDGAR Date: 2022-09-04 21:17 Normal [facility] CULTURE BLOODon 09-04-2022 Microscopic examination of blood, culture Culture Observations: NO GROWTH AT 5 DAYS. Normal [facility] Comment on above: Performed By: #### B LDCX2 #### [facility] [address] [place] [address] Dr. Celina Venegas Performed By: #### H STROPN #### [facility] [address] [place] [address] Dr. Celina Venegas ER URINE PROFILEon 3 Bilirubin Ql (U) Negative Normal NEGATIVE [facility] Comment on above: Performed By: #### H STROPN #### [facility] [address] [place] [address] Dr. Celina Venegas Clarity (U) CLEAR Normal CLEAR [facility] Comment on above: Performed By: #### H STROPN #### [facility] [address] [place] [address] Dr. Celina Venegas Color (U) LT. YELLOW Normal YELLOW [facility] Comment on above: Performed By: #### H STROPN #### [facility] [address] [place] [address] Dr. Celina Venegas ERUAHD A micrscopic examination will be performed if indicated. Normal [facility] Comment on above: Performed By: #### H STROPN #### [facility] [address] [place] [address] Dr. Celina Venegas Glucose Ql (U) Negative Normal NEGATIVE [facility] Comment on above: Performed By: #### H STROPN #### [facility] [address] [place] [address] Dr. Celina Venegas Hemoglobin Ql (U) Negative Normal NEGATIVE [facility] Comment on above: Performed By: #### H STROPN #### [facility] [address] [place] [address] Dr. Celina Venegas Ketones Ql (U) TRACE Abnormal NEGATIVE [facility] Comment on above: Performed By: #### H STROPN #### [facility] [address] [place] [address] Dr. Celina Venegas LEUKOCYTES Negative Normal NEGATIVE [facility] Comment on above: Performed By: #### H STROPN #### [facility] [address] [place] [address] Dr. Celina Venegas Nitrite Ql (U) Negative Normal NEGATIVE [facility] Comment on above: Performed By: #### H STROPN #### [facility] [address] [place] [address] Dr. Celina Venegas pH (U) 6.0 [pH] Normal 5-9 [facility] Comment on above: Performed By: #### H STROPN #### [facility] [address] [place] [address] Dr. Celina Venegas SPEC GRAVITY <=1.005 Abnormal 1.005-<=1.02 5 [facility] Comment on above: Performed By: #### H STROPN #### [facility] [address] [place] [address] Dr. Celina Venegas UA PROTEIN TRACE Normal NEGATIVE/ TRACE [facility] Comment on above: Performed By: #### H STROPN #### [facility] [address] [place] [address] Dr. Celina Venegas UR MICRO IND NOT INDICATED Normal [facility] [place] Comment on above: Performed By: #### H STROPN #### [facility] [facility] [address] [place] [address] Dr. Celina Venegas Urobilinogen Qn (U) 0.2 {Pamela'U}/dL Normal 0.2 - 1. 0 [facility] Comment on above: Performed By: #### H STROPN #### [facility] [address] [place] [address] Dr. Celina Venegas LACTATE/LACTIC ACIDon 2022 Lactate [Moles/Vol] 1.4 mmol/L Normal 0.4-2.0 [facility] Comment on above: Performed By: #### B [id number] #### [facility] [address] [address] [address] Celina Venegas LIPASEon 09-04-2022 Lipase [Catalytic activity/Vol] 194.0 U/L Normal 73.0-393.0 [facility] Comment on above: Performed By: #### M G, BNP, CMP #### [facility] [address] [address] [address] Celina Venegas PREG HCG QUALon 09-04-2022 , QUAL Negative Normal NEGATIVE [facility] Comment on above: Performed By: #### P REG #### [facility] [address] [place] [address] Dr. Celina Venegas PROF 14(COMP METB)on 023 Albumin [Mass/Vol] 3.6 g/dL Normal 3.4-5.0 [facility] Comment on above: Performed By: #### M G, BNP, CMP #### [facility] [address] [place] [address] Dr. Celina Venegas Albumin/Globulin [Mass ratio] 0.8 {ratio} Normal [facility] Comment on above: Performed By: #### M G, BNP, CMP #### [facility] [address] [place] [address] Dr. Celina Venegas ALP [Catalytic activity/Vol] 175 U/L Critically high 46-116 [facility] Comment on above: Performed By: #### M G, BNP, CMP #### [facility] [address] [address] [address] Celina Venegas ALT [Catalytic activity/Vol] 22 U/L Normal 14-59 [facility] Comment on above: Performed By: #### M G, BNP, CMP #### [facility] [address] [place] [address] Dr. Celina Venegas Anion gap [Moles/Vol] 15.8 mmol/L Normal [facility] Comment on above: Performed By: #### M G, BNP, CMP #### [facility] [address] [place] [address] Dr. Celina Venegas AST [Catalytic activity/Vol] 16 U/L Normal 15-37 [facility] Comment on above: Performed By: #### M G, BNP, CMP #### [facility] [address] [place] [address] Dr. Celina Venegas Bilirubin [Mass/Vol] 0.7 mg/dL Normal 0.2-1.0 [facility] Comment on above: Performed By: #### M G, BNP, CMP #### [facility] [address] [place] [address] Dr. Celina Venegas Calcium [Mass/Vol] 9.2 mg/dL Normal 8.5-10.1 [facility] Comment on above: Performed By: #### M G, BNP, CMP #### [facility] [address] [place] [address] Dr. Celina Venegas Chloride [Moles/Vol] 99 mmol/L Normal 98-107 [facility] Comment on above: Performed By: #### M G, BNP, CMP #### [facility] [address] [place] [address] Dr. Celina Venegas CO2 [Moles/Vol] 25.1 mmol/L Normal 21.0-32.0 [facility] Comment on above: Performed By: #### M G, BNP, CMP #### [facility] [address] [place] [address] Dr. Celina Venegas Creatinine [Mass/Vol] 1.90 mg/dL Critically high 0.55-1.02 [facility] Comment on above: Performed By: #### M G, BNP, CMP #### [facility] [address] [place] [address] Dr. Celina Venegas EGFR-AF TURKS AND CAICOS ISLANDER 34 mL/min/1.73m2 Critically low >=60 [facility] Comment on above: Performed By: #### M G, BNP, CMP #### [facility] [address] [place] [address] Dr. Celina Venegas EGFR-NON AF TURKS AND CAICOS ISLANDER 28 mL/min/1.73m2 Critically low >=60 [facility] Comment on above: Performed By: #### M G, BNP, CMP #### [facility] [address] [address] [address] Celina Venegas Globulin (S) [Mass/Vol] 4.4 g/dL Normal [facility] Comment on above: Performed By: #### M G, BNP, CMP #### [facility] [address] [address] [address] Celina Venegas Glucose [Mass/Vol] 139 mg/dL Critically high 74-106 [facility] Comment on above: Performed By: #### M G, BNP, CMP #### [facility] [address] [address] [address] Celina Venegas Potassium [Moles/Vol] 2.8 mmol/L Critically low 3.5-5.1 [facility] Comment on above: Performed By: #### M G, BNP, CMP #### [facility] [address] [place] [address] Dr. Celina Venegas Protein [Mass/Vol] 8.0 g/dL Normal 6.4-8.2 [facility] Comment on above: Performed By: #### M G, BNP, CMP #### [facility] [address] [address] [address] Celina Venegas Sodium [Moles/Vol] 136 mmol/L Normal 136-145 [facility] Comment on above: Performed By: #### M G, BNP, CMP #### [facility] [address] [address] [address] Celina Venegas Urea nitrogen [Mass/Vol] 49.0 mg/dL Critically high 7.0-18.0 [facility] Comment on above: Performed By: #### M G, BNP, CMP #### [facility] [address] [address] [address] Celina Venegas Urea nitrogen/Creatinine [Mass ratio] 25.8 mg/mg Normal [facility] Comment on above: Performed By: #### M G, BNP, CMP #### [facility] [address] [address] [address] Celina Venegas TROPONIN, HIGH SENSITIVITYon 09-04-2022 HSTROP 63.4 pg/mL Critically high 4.0-51.3 [facility] Comment on above: Result Comment: CUT- OFF POINTS HAVE BEEN ESTABLISHED BASED ON THE FOURTH UNIVERSAL DEFINITIONS OF MYOCARDIAL INFARCTION. THE UPPER REFERENCE LIMIT (URL) OF TROPONIN, DEFINED THE 99TH PERCENTILE OF cTnI DISTRIBUTION IN A REFERENCE POPULATION, HAS BEEN CONFIRMED THE DECISION THRESHOLD FOR [place] DIAGNOSIS. Performed By: #### B [id number] #### [facility] [address] [address] [address] Celina Venegas XR CHEST 1 Von [...] FELICIANO QUIROZ Date: 2022-09-04 20:25 Normal [facility] CARDIAC LOUISE ADMITon 023 CK [Catalytic activity/Vol] 10 U/L Critically low 26-192 [facility] Comment on above: Performed By: #### B [id number] #### [facility] [address] [place] [address] Dr. Celina Venegas CK.MB [Mass/Vol] ng/mL Normal <=3.60 [facility] Comment on above: Performed By: #### B [id number] #### [facility] [address] [address] [address] Celina Venegas HSTROP 11.8 pg/mL Normal 4.0-51.3 [facility] Comment on above: Result Comment: CUT- OFF POINTS HAVE BEEN ESTABLISHED BASED ON THE FOURTH UNIVERSAL DEFINITIONS OF MYOCARDIAL INFARCTION. THE UPPER REFERENCE LIMIT (URL) OF TROPONIN, DEFINED THE 99TH PERCENTILE OF cTnI DISTRIBUTION IN A REFERENCE POPULATION, HAS BEEN CONFIRMED THE DECISION THRESHOLD FOR [place] DIAGNOSIS. Performed By: #### B [id number] #### [facility] [address] [address] [address] Celina Venegas SHAWANDA 27 ng/mL Normal 9-82 [facility] Comment on above: Performed By: #### B [id number] #### [facility] [address] [place] [address] Dr. Celina Venegas CBC AUTO DIFFon 08-20-2022 BASO # 0.0 103/ul Normal 0.0-0.1 [facility] Comment on above: Performed By: #### P REG #### [facility] [address] [place] [address] Dr. Celina Venegas Basophils/100 WBC (Bld) 0.3 % Normal 0.2-2.0 [facility] Comment on above: Performed By: #### P REG #### [facility] [address] [place] [address] Dr. Celina Venegas EO # 0.0 103/ul Normal 0.0-0.7 [facility] Comment on above: Performed By: #### P REG #### [facility] [address] [place] [address] Dr. Celina Venegas Eosinophils/100 WBC (Bld) 0.3 % Critically low 0.9-7.0 [facility] Comment on above: Performed By: #### P REG #### [facility] [address] [place] [address] Dr. Celina Venegas Erythrocyte distribution width (RBC) [Ratio] 12.7 % Normal 11.0-15.0 [facility] Comment on above: Performed By: #### P REG #### [facility] [address] [place] [address] Dr. Celina Venegas Hematocrit (Bld) [Volume fraction] 35.8 % Critically low 36.0-48.0 [facility] Comment on above: Performed By: #### P REG #### [facility] [address] [place] [address] Dr. Celina Venegas Hemoglobin (Bld) [Mass/Vol] 11.5 g/dL Critically low 12.0-16.0 [facility] Comment on above: Performed By: #### P REG #### [facility] [address] [place] [address] Dr. Celina Venegas IG # 0.04 10e3/ul Critically high 0.00-0.03 [facility] Comment on above: Performed By: #### P REG #### [facility] [address] [place] [address] Dr. Celina Venegas IG % 0.4 % Normal 0.0-0.5 [facility] Comment on above: Performed By: #### P REG #### [facility] [address] [address] [address] Celina Venegas LYMPH # 1.6 103/ul Normal 1.2-3.8 [facility] Comment on above: Performed By: #### P REG #### [facility] [address] [place] [address] Dr. Celina Venegas Lymphocytes/100 WBC (Bld) 14.0 % Critically low 20.5-60.0 [facility] Comment on above: Performed By: #### P REG #### [facility] [address] [place] [address] Dr. Celina Venegas MANUAL DIFF REQ NO Normal [facility] Comment on above: Performed By: #### P REG #### [facility] [address] [place] [address] Dr. Celina Venegas MCH (RBC) [Entitic mass] 25.8 pg Critically low 26.7-34.0 [facility] Comment on above: Performed By: #### P REG #### [facility] [address] [place] [address] Dr. Celina Venegas MCHC (RBC) [Mass/Vol] 32.1 g/dL Normal 29.9-35.2 [facility] Comment on above: Performed By: #### P REG ####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 negative. [facility] 10-28-2022 Note Cardiology Clinic No te Subjective Shahida Mejia is a 52 y.o. year old female patient being who was seen in consultation at the [facility] for NSTEMI, acute on chronic diastolic heart [...] about 4 weeks (around 11/25/2022). Augustin Claros APRN-[facility] Cardiovascular Medicine [facility] 10-28-2022 Note Review of Systems Constitutional: Positive for night sweats and weight loss. Eyes: Positive for blurred vision. Respiratory: Positive for shortness of breath. Gastrointestinal: Positive for diarrhea. Neurological: Positive for dizziness. [facility] 10-09-2022 Note PROCEDURE: XR CHEST 1 V DATE: 10/08/2022 10:20 PM CDT COMPARISONS: 10/08/2022 CLINICAL INDICATION: 52 years Female SHORTNESS OF BREATH FINDINGS: The cardiomediastinal silhouette and pulmonary vasculature are within normal limits. The lungs are clear. There is no evidence of pleural effusion or pneumothorax. IMPRESSION: Chest radiograph is within normal limits. Electronically authenticated by: ARTUR ZARATE Date: 2022-10-09 06:48 [facility] 09-05-2022 Note CONSULTATION CONSULTATION DATE: [...] hospital course. 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 and take as directed Tylenol or Motrin for discomfort [] [facility] Work Phone: Summary Purpose Family History No [...] Disease Chief Complaint Graves Disease Graves Disease Chief Complaint Graves Disease Graves Disease E05.00 Additional Source Comments INFORMATION SOURCE (unrecogn ized section and content) DATE CREATED AUTHOR 09/10/2022 [facility] DATE CREATED AUTHOR AUTHOR'S ORGANIZ ATION 10/21/2022 [facility] DATE CREATED AUTHOR AUTHOR'S ORGANIZ ATION 08/30/2023 [facility] DATE CREATED AUTHOR AUTHOR'S ORGANIZ ATION 10/09/2023 [facility] DATE CREATED AUTHOR AUTHOR'S ORGANIZ ATION 10/18/2023 [facility] EPIC Care Teams (unrecognized sec tion and content) [...] August 23, 2023 End: August 23, 2023 Team Status: Inactive Member Role Status Karishma Clement MD Primary Care Provider Active Start: October 12, 2023 End: October 12, 2023 Raul Lopez DO Attending Provider Active S tart: October 12, 2023 End: October 12, 2023 Goals (unrecognized section and content) Goals [...] BE BASED ON THE PRIMARY CLINICAL RECORDS. [employer] provides no warranty or guarantee of the accuracy or completeness of information in this document.
== END 2023-10-26 08:39 | disposition home or self-care (01) ==
LOC: RAD 08:41
PROVIDERS: PCP Family Medicine; Visit Provider Internal Medicine Cardiovascular Disease
DX: I45.5 Other specified heart block (principal)
CPT/HCPCS: 71046

== ENCOUNTER 2025-02-04 11:53 | Emergency (ER) | payer OTHER, SELFPAY ==
--- OUTSIDE RECORDS SUMMARY | 2024-05-23 05:30 | XMS_ITS ---
Author Organization [facility] vices Address [address] [place], [place] [id number] Care Team Providers Care Computing Architect Name Role Phone India Baker Primary Care Provider REASON FOR VISIT wellness Social History Sex Assigned At : Social History Observation Description Sex Assigned At Female Encounters Encounter Location Date Provider Diagnosis Main [address] [place], [place] [id number] 05/23/2024 India Baker Plan Of Treatment No Information Progress Notes * Shahida MEJIA MDOB:1970 (54 yo F)Acc No.[id number]:05/23/2024 Progress Notes Patient: Shahida CONN Provider: Laxmi Baker MD :1970 A ge:53 Y S ex:Female Date:05/23/2024 Address:[address] [place], [place] [id number] Subjective: * Chief Complaints: * 1 . Wellness. * Medical History: Objective: * Vitals: Assessment: Plan: * Treatment: Care Plan: * Problems: * Billing Information: * Visit Code: * Procedure Codes: * Electronic signature of Ramiro Baker MD on 02/04/2025 at 12:14 PM EDT Sign off status: Pending * Provider: Laxmi Baker MD Date: 0 05/23/2024 Generated for Printi ng/Falazaro/eTransmitting on: 0 02/04/2025 12:14 PM EDT
--- OUTSIDE RECORDS SUMMARY | 2024-06-18 05:30 | XMS_ITS ---
Author Organization [facility] vices Address [address], [place] [id number] Care Team Providers Care Manager Rn Name Role Phone India Baker Primary Care Provider REASON FOR VISIT Wellness Social History Sex Assigned At : Social History Observation Description Sex Assigned At Female Encounters Encounter Location Date Provider Diagnosis Main [address] [id number] 06/18/2024 India Baker Plan Of Treatment No Information Progress Notes * Shahida MEJIA MDOB:1970 (54 yo F)Acc No.[id number]:06/18/2024 Progress Notes Patient: Shahida CONN Provider: Laxmi Baker MD :1970 A ge:53 Y S ex:Female Date:06/18/2024 Address:[address] [place], [place] [id number] Subjective: * Chief Complaints: * 1 . Wellness. * Medical History: Objective: * Vitals: Assessment: Plan: * Treatment: Care Plan: * Problems: * Billing Information: * Visit Code: * Procedure Codes: * Electronic signature of Ramiro Baker MD on 02/04/2025 at 12:15 PM EDT Sign off status: Pending * Provider: aLxmi Baker MD Date: 0 06/18/2024 Generated for Farazi noah/Hardik/eTransmitting on: 0 02/04/2025 12:15 PM EDT
--- OUTSIDE RECORDS SUMMARY | 2024-06-27 05:30 | XMS_ITS ---
Author Organization [facility] vices Address [address] [place], [place] [id number] Care Team Providers Care Electrotype Caster Name Role Phone India Baker Primary Care Provider REASON FOR VISIT wellness Social History Sex Assigned At : Social History Observation Description Sex Assigned At Female Encounters Encounter Location Date Provider Diagnosis Main [address] [place], [place] [phone] 06/27/2024 India Baker Plan Of Treatment No Information Progress Notes * Shahida MEJIA MDOB:1970 (54 yo F)Acc No.[id number]:06/27/2024 Patient: Shahida CONN Provider: Laxmi Baker MD :1970 A ge:53 Y S ex:Female Date:06/27/2024 Address:[address] [place], [place] [phone] Subjective: * Chief Complaints: * 1 . Wellness. * Medical History: Objective: * Vitals: Assessment: Plan: * Treatment: * Billing Information: * Visit Code: * Procedure Codes: * Electronic signature of Ramiro Baker MD on 02/04/2025 at 12:14 PM EDT Sign off status: Pending * Provider: Laxmi Baker MD Date: 0 06/27/2024 Generated for Printi ng/Faxing/eTransmitting on: 0 02/04/2025 12:14 PM EDT
--- OUTSIDE RECORDS SUMMARY | 2024-08-15 10:00 | XMS_ITS ---
Author Organization [facility] vices Address [address] [place], [place] [address] Care Team Providers Care Flight Attendant Inflight Services Name Role Phone India Baker Primary Care Provider REASON FOR VISIT thyroid and HLD Social History Sex Assigned At : Social History Observation Description Sex Assigned At Female Encounters Encounter Location Date Provider Diagnosis Main [address] [place] [phone] 08/15/2024 India Baker Plan Of Treatment No Information Progress Notes * Shahida MEJIA MDOB:1970 (54 yo F)Acc No.[id number]:08/15/2024 Medical Note Patient: Shahida CONN Provider: Laxmi Baker MD :1970 A ge:53 Y S ex:Female Date:08/15/2024 Address:[address] [place], [place] [id number] Subjective: * Chief Complaints: * 1 . thyroid and HLD. * Medical History: Objective: * Vitals: Assessment: Plan: * Treatment: * Billing Information: * Visit Code: * Procedure Codes: * Electronic signature of Ramiro Baker MD on 02/04/2025 at 12:15 PM EDT Sign off status: Pending * Provider: Laxmi Baker MD Date: 0 08/15/2024 Generated for Farazi noah/Hardik/eTransmitting on: 0 02/04/2025 12:15 PM EDT
[2025-02-04] VITALS (28 sets, daily range): BP systolic 123–177; BP diastolic 65–90; PULSE 73–98; TEMP 36.6; O2SAT 70–100; BMI 23.0
--- OUTSIDE RECORDS SUMMARY | 2025-02-04 12:15 | XMS_ITS | Encounter Summary ---
Author Organization [facility] Address [facility] [place] [address] Care Team Providers Care Medical Research Tech Name Role Phone Unavailable Primary Care Provider Unavailabl e Source Comments In the event this information is protected by the Federal Confidentiality of Alcohol and Drug AbusePatient Records regulations: The Federal rules restrict any use of the information to criminally investigate or prosecute any alcohol or drug abuse patient.[facility] Encounter Details Date Type Department Care Team (Latest Contact Info) Description 06/26/2023 H&P External-NonCCF Provider, External, PA-C Do not enter address information under generic External Provider. Social History Tobacco Use Types Packs/Day Years Used Date Smoking Tobacco: Never Assessed Comments Unknown Sex and Gender Information Value Date Recorded Sex Assigned at Not on file Legal Sex Female 7:46 AM EST Gender Identity Not on file Sexual Orientation Not on file documented as of this encounter Plan of Treatment Not on file documented as of this encounter Visit Diagnoses Not on filedocumented in this encounter
--- OUTSIDE RECORDS SUMMARY | 2025-02-04 12:15 | XMS_ITS | Clinical Summary ---
Author Organization [facility] Address [address] [place] [address] Care Team Providers Care Demurrage Man Name Role Phone Unavailable Primary Care Provider Unavailabl e Social History Tobacco Use Types Packs/Day Years Used Date Smoking Tobacco: Never Assessed Comments Unknown Sex and Gender Information Value Date Recorded Sex Assigned at Not on file Legal Sex Female 7:46 AM EST Gender Identity Not on file Sexual Orientation Not on file Plan of Treatment Not on file
--- OUTSIDE RECORDS SUMMARY | 2025-02-04 12:15 | XMS_ITS | Encounter Summary ---
Author Organization [facility] Address [address] [place] [address] Care Team Providers Care Donor Technician Name Role Phone Mando De MD Primary Care Provider [phone] Encounter Details Date Type Department Care Team (Late Contact Info) Description 07/22/2024 Orders Only [facility] [address] [place] [address] Nereida Cisneros MD [address] [place] [address] Social History Tobacco Use Types Packs/Day Years Used Date Smoking Tobacco: Never Smokeless Tobacco: Never Alcohol Use Standard Drinks/Week Comments Not Currently 1 (1 standard drink = 0.6 oz pur e alcohol) Comments Unknown Sex and Gender Information Value Date Recorded Sex Assigned at Female 08/07/2023 11:11 AM EDT Legal Sex Female 7:25 PM EDT Gender Identity Female 08/07/2023 11:11 AM EDT Sexual Orientation Straight 08/07/2023 11 :11 AM EDT documented as of this encounter Plan of Treatment Upcoming Encounters Date Type Department Care Team (Late Contact Info) Description 08/26/2025 1:00 PM EDT Office Visit [facility] [address] [place] [phone] Nereida Cisneros MD [address] [place] [address] documented as of this encounter Procedures Procedure Name Priority Date/Time Associated Diagnosis Comments T3, FREE Routine 07/22/2024 9:29 AM EDT TSH Routine 07/22/2024 9:29 AM EDT T4, FREE Routine 07/22/2024 9:29 AM EDT documented in this encounter Results * TSH (07/22/2024 9:29 AM EDT) Blood Venous blood specimen / Unknown Nereida Cisneros MD LAB BLOOD ORDERABLES Final Re sult * T3, free (07/22/2024 9:29 AM EDT) Blood Venous blood specimen / Unknown Nereida Cisneros MD LAB BLOOD ORDERABLES Final Re sult * T4, free (07/22/2024 9:29 AM EDT) Blood Venous blood specimen / Unknown Nereida Cisneros MD LAB BLOOD ORDERABLES Final Re sult documented in this encounter Visit Diagnoses Not on filedocumented in this encounter Care Teams Donor Technician Relationship Specialty Start Date End Date Mando De MD [address] [place] [phone] PCP - General Family Medicine 08/11/23 documented as of this encounter
--- OUTSIDE RECORDS SUMMARY | 2025-02-04 12:15 | XMS_ITS | Patient Health Record ---
Author Organization [facility] [place] Address [address] [place] [address] Care Team Providers Care Caterpillar Operator Name Role Phone Mando De Primary Care Provider Unavailabl e Allergies No Known Allergies Reason For Referral No Information Medications Medication SIG (Take, Route, Fr equency, Duration) Notes Start Date End Date Status Citalopram Hydrobromide Active Furosemide Active Klor-Con 10 10 MEQ 1 tablet with food O rally Twice a day Active Albuterol Active Meloxicam 15 MG 1 tablet Orally Once a day Active methIMAzole Active Metoprolol Tartrate Active MoviPrep 100 GM as directed Orally O nce; Duration: 1 days Active Losartan Potassium A ctive Social History Tobacco Use: Social History Observation Description Date Details (start date - stop date) Never Smoker NA - NA Tobacco Use/Smoking Question Answer Notes Patient is a nonsmoker Problems Problem Type SNOMED Code ICD Code Onset Dates Problem Status W/U Status Risk Notes Problem Acute appendicitis (90973330) Unspecified acute appendicitis (K35.80) Active confirmed Problem Shortness of breath (747593142) Shortness of breath (R06.02) Active confirmed Problem Hypertension (41188992) Hypertension (I10) Active confirmed Problem Congestive heart failure (56704715) CHF (congestive heart failure) (I50.9) Active confirmed Problem COPD - Chronic obstructive pulmonary disease (81156809) COPD (chronic obstructive pulmonary disease) (J44.9) Active confirmed Problem Leukocytosis (619573626) Elevated WBC count (D72.829) Active confirmed Problem Diverticulitis (47697503) Diverticulitis (K57.92) Active confirmed Problem Hyperthyroidism (75506511) Hyperthyroidism (E05.90) Active confirmed Problem Acute non-ST segment elevation myocardial infarction (263407006) NSTEMI (non-ST elevated myocardial infarction) (I21.4) Active confirmed Problem History of excision of intestinal structure (847629625) Status post laparoscopic appendectomy (Z90.49) Active confirmed Problem Essential hypertension (77874337) BP (high blood pressure) (I10) Active confirmed Problem Acquired thrombocytopenia (27805865) Acquired thrombocytopenia (D69.6) Active confirmed Plan Of Treatment No Information Insurance Providers Payer Name Payer Address Payer Phone Subscriber Number Group Number Insured Name Patient Relationship to Insured Coverage Start Date Coverage End Date [employer] [place] [employer] [address] [place] [address] [id number] Shahida Mejia Self - patient is the insured 9 Medical (General) History Medical History History ICD Code Congestive heart failure (CHF) I50.9 High blood pressure I10 Surgical History Surgery Date(Month/Year) APPEDECTOMY 08/20/22 Hospitalization History Reason Date(Month/Year) CHF
--- OUTSIDE RECORDS SUMMARY | 2025-02-04 12:15 | XMS_ITS | Clinical Summary ---
Author Organization [facility] Address [id number] [address] [place] [address] Care Team Providers Care Emergency Veterinary Technician Name Role Phone Mando De MD Primary Care Provider [phone] Allergies No known active allergies Medications lisinopril-hydro chlorothiazide (PRINZIDE,ZESTOR ETIC) 20-12.5 mg per tablet Take 1 tablet by mouth daily. Active metoprolol succinate XL (TOPROL-XL) 100 mg 24 hr tablet Take 100 mg by mouth 2 (two) times a day. Active Social History Tobacco Use Types Packs/Day Years Used Date Smoking Tobacco: Never Childcare Answer Date Recorded Childcare Unknown 10/24/2018 Employment Answer Date Recorded Employment Unknown 10/24/2018 Purpose - Life Answer Date Recorded Purpose and direction in life Unknown Comments Unknown Sex and Gender Information Value Date Recorded Sex Assigned at Not on file Legal Sex Female 11:39 AM EDT Gender Identity Not on file Sexual Orientation Not on file Last Filed Vital Signs Vital Sign Reading Time Taken Comments Blood Pressure 172/76 10/10/2016 8:25 PM EDT Pulse 89 10/10/2016 4:12 PM EDT Temperature 36.8 C (98.2 F) 10/10/2016 4:12 PM EDT Respiratory Rate 20 10/10/2016 4:12 PM EDT Oxygen Saturation 98% 10/10/2016 8:20 PM EDT Inhaled Oxygen Concentration - - Weight 49.9 kg (110 lb) 10/10/2016 4:12 PM EDT Height 124.5 cm (4' 1 ) 10/10/2016 4:12 PM EDT Body Mass Index 32.21 10/10/2016 4:12 PM EDT Plan of Treatment Health Maintenance Due Date Last Done Comments Depression Screening 1981 Tobacco Screening 1981 Adult BMI Screening 08/17/1987 DTaP,Tdap and Td Vaccines (1 - Tdap) 1988 Zoster (Shingles) Vaccine (1 of 2) 08/17/2019 Influenza Vaccine 01/13/2025 02/04/2015 Pap Smear 03/30/2025 03/30/2022, 03/30/2022 Medical Devices Not on file Procedures Procedure Name Priority Date/Time Associated Diagnosis Comments PAP SMEAR Routine 03/30/2022 9:16 AM EST Encounter for screening for malignant neoplasm of cervix Encounter for screening for human papillomavirus (HPV) from Last 3 Months or Most Recently Relevant to Health Maintenance Results * Pap Smear (03/30/2022 9:16 AM EST) 03/30/2022 9:16 AM EST 03/30/2022 9:17 AM EST Narrative COPATH - 04/11/2022 9:48 AM EST [facility] [address] [place] [address] Gynecologic Cytology Consultation Patient Name:SHAHIDA MEJIA:1970 (Age: 51)Gender:FTaken:2Reported:04/11/2022hysician(s):France Mckeon M.D. ([phone])Copy To: Rec. #:[id number]: #[id number] Final Cytologic Interpretation ThinPrep Pap Test (Not otherwise specified): Satisfactory for evaluation. NEGATIVE FOR INTRAEPITHELIAL LESION OR MALIGNANCY. The cytologic changes of atrophy are noted. jfarhana/04/11/2022 Interpret[place] [address], License number: [id number]. Electronically Signed Out By JONNATHAN Collier(ASCP) Date of Last Menstrual Period: (None Given) Other Clinical Conditions: Z12.4 Screening for malignant neoplasm of cervix Z11.51 Screening for HPV Source of Specimen ThinPrep Pap Test (Not otherwise specified) Thin Prep Pap (FIELD INTERVIEWER) Fee Code(s): G0145 us France Mckeon MD PATHOLOGY/CYTOLOGY ORDERABLES nal Result COPATH from Last 3 Months or Most Recently Relevant to Health Maintenance Insurance [employer] Care Teams Emergency Veterinary Technician Relationship Specialty Start Date End Date Mando De MD PCP - General 10/10/16
--- OUTSIDE RECORDS SUMMARY | 2025-02-04 12:15 | XMS_ITS | Encounter Summary ---
Author Organization [facility] Address [address] [place] [address] Care Team Providers Care Property And Casualty Insurance Agent Name Role Phone Mando De MD Primary Care Provider [phone] Reason for Visit * Reason Comments Med Refill Encounter Details Date Type Department Care Team (Late st Contact Info) Description 10/18/2023 Refill [facility] [address] [place] [phone] Raul Lpoez, DO [address] [place] [address] Graves disease Social History Tobacco Use Types Packs/Day Years [...] Description 08/26/2025 1:00 PM EDT Office Visit [facility] [address] [place] [address] Nereida Cisneros MD [address] [place] [address] documented as of this encounter Visit Diagnoses Diagnosis Graves disease Toxic diffuse goiter without mention of thyrotoxic crisis or storm documented in this encounter Care Teams Property And Casualty Insurance Agent Relationship Specialty Start Date End Date Mando De MD [address] [place] [address] PCP - General Family Medicine 08/11/23 documented as of this encounter
--- OUTSIDE RECORDS SUMMARY | 2025-02-04 12:15 | XMS_ITS | Encounter Summary ---
Author Organization [facility] Address [address] [place] [address] Care Team Providers Care Regroover Name Role Phone Mando De MD Primary Care Provider [phone] Encounter Details Date Type Department Care Team (Late st Contact Info) Description 2023 External Result Encounter [facility] External Department Unsolicited Raul Lopez W, DO [address] [place] [address] Social History Tobacco Use Types Packs/Day Years [...] Encounters Date Type Department Care Team (Late st Contact Info) Description 08/26/2025 1:00 PM EDT Office Visit [facility] [place] [facility] [address] [place] [address] Nereida Cisneros MD [address] [place] [address] documented as of this encounter Procedures Procedure Name Priority Date/Time Associated Diagnosis Comments ECG 12-LEAD 2023 11:44 AM EDT documented in this encounter Results * ECG 12 lead (2023 11:44 AM EDT) 2023 11:4 4 AM EDT Narrative [facility] 08/17/2023 2:54 PM EDT [facility] Main [address] [address] Electrocardiograph Report Signed Patient: Shahida Mejia MR#: [id number] 6 : 1970 Acct:[id number] Age/Sex: 52 / F ADM Date: 08/16/23 Loc: Room: Type: [facility] Attending Dr: Raul Lopez DO Ordering Provider: [...] previous ECGs available Confirmed by [facility] ([id number]) on 08/17/2023 2:54:25 PM Referred By: ECTOR Electronically Signed By:FANNY LINDA MD [facility] Transcribed By: MUS Signed By Fanny Linda MD, [facility] 08/17/23 1235 Procedure Note Fanny Linda MD - 08/17/[address] [address] Electrocardiograph Report Signed Patient: Shahida Mejia MMR#: [id number] 6 : 1970Acct:[id number] Age/Sex: 52 / FADM Date: 08/16/23 Loc: PS [facility] Att[facility] Dr: Raul Lopez DO [...] previous ECGs available Confirmed by JUANITA MOTA [facility], FANNY ([id number]) on 08/17/2023 2:54:25 PM Referred By: ECTOR Electronically Signed By:FANNY LINDA MDFA Transcribed By: MUS Signed By Fanny Linda MD, [facility] 08/17/23 9127 us Raul Lopez DO ECG ORDERABLES Final Resul t Performing Organization Address City/State/[facility] Co de Phone Number [address] [address], documented in this encounter Visit Diagnoses Not on filedocumented in this encounter Care Teams Regroover Relationship Specialty Start Date End Date Mando De MD [address] [place] [address] PCP - General Family Medicine 08/11/23 documented as of this encounter
--- OUTSIDE RECORDS SUMMARY | 2025-02-04 12:15 | XMS_ITS | Clinical Summary ---
Author Organization [facility] Address [address] [place] [address] Care Team Providers Care Market Research Associate Name Role Phone Mando De MD Primary Care Provider [phone] Allergies Active Allergy Reactions Criticality Noted Date Comments Dapagliflozin Nausea And Vomiting 06/13/2023 Medications albuterol HFA 90 mcg/act inhaler Inhale 2 puffs every 6 (six) hours if needed Active Eliquis 5 MG tablet Take 5 mg by mouth in the morning and 5 mg in the evening. 11/11/2022 Active atorvastatin (Lipitor) 40 MG tablet Take 10 mg by mouth at bedtime 10/09/2022 Active busPIRone (Buspar) 15 MG tablet 07/12/2023 Active cetirizine (ZyrTEC) 10 MG tablet 10/31/2022 Active citalopram (CeleXA) 20 MG tablet 07/05/2023 Active hydroCHLOROthiaz ashlee (HYDRODiuril) 12.5 MG tablet Take 12.5 mg by mouth in the morning. 04/14/2023 Active losartan (Cozaar) 100 MG tablet 03/11/2023 Active MAGnesium-Oxide 400 (240 Mg) MG tablet 11/27/2022 Active metoprolol tartrate (Lopressor) 50 MG tablet 25 mg Daily Active mirtazapine (Remeron) 15 MG tablet 06/07/2023 Active nitroglycerin (Nitrostat) 0.4 MG SL tablet 04/04/2023 Active traZODone (Desyrel) 100 MG tablet 03/20/2023 Active levothyroxine (Synthroid, Levoxyl) 88 MCG tabletIndication s:Hypothyroidism , unspecified type Take 1 tablet (88 mcg) by mouth in the morning. on an empty stomach. 90 tablet 3 08/27/2024 Active Resolved Problems Problem Noted Date Diagnosed Date Resolved Date Sinus pause 08/10/2023 08/10/2023 COPD (chronic obstructive pulmonary disease) 08/10/2023 Elevated lactic acid level 08/10/2023 0 08/10/2023 Elevated troponin I level 08/10/2023 Hypokalemia 08/10/2023 08/10/2023 Shortness of breath 08/10/2023 08/10/19 Atrial fibrillation with rap id ventricular response 05/24/2023 08/10/2023 Chest pain 05/24/2023 08/10/2023 Cardiac arrhythmia 05/24/2023 Abnormal stress test 04/18/2023 024 Coronary artery disease 04/18/202307/14 Insomnia 03/07/2023 08/10/2023 Atrial flutter 12/04/2022 08/10/2023 Chronic diastolic heart failure 12/04/2022 08/10/2023 Essential hypertension 12/04/202208/09 Diverticulitis 11/25/2022 08/10/2023 Seasonal allergic rhinitis due to pollen 11/25/2022 08/10/2023 Status post laparoscopic appendectomy 11/25/2022 08/10/2023 Hypomagnesemia 10/28/2022 08/10/2023 Immunizations Immunization Administration Dates Next Due Influenza, seasonal, injectable 02/04/2015 Family History Medical History Relation Name Comments No Known Problems Daughter x 1 Stroke Father Asthma Mother Lauar Lyles Cancer Mother Laura Lyles Diabetes Mother Laura Lyles Heart failure Mother Laura Lyles Hypertension Mother Laura Lyles Hypothyroidism Sister x 2 Relation Name Status Comments Daughter x 1 Alive Father Mother Laura Lyles Alive Sister x 2 Alive Social History Tobacco Use Types Packs/Day Years [...] Orientation Straight 08/07/2023 11 :11 AM EDT Last Filed Vital Signs Vital Sign Reading Time Taken Comments Blood Pressure 112/65 08/27/2024 1:28 PM EDT Pulse 77 08/27/2024 1:28 PM EDT Temperature - - Respiratory Rate 16 08/27/2024 1:28 PM EDT Oxygen Saturation 94% 08/27/2024 1:28 PM EDT Inhaled Oxygen Concentration - - Weight 52.2 kg (115 lb) 08/27/2024 1:28 PM EDT Height 152.4 cm (5') 08/27/2024 1:28 PM EDT Body Mass Index 22.46 08/27/2024 1:28 PM EDT Plan of Treatment Upcoming Encounters Date Type Department Care Team (Late st Contact Info) Description 08/26/2025 1:00 PM EDT Office Visit [facility] [address] [place] [address] Nereida Cisneros MD [address] [place] [address] Insurance [employer] Care Teams Market Research Associate Relationship Specialty Start Date End Date Mando De MD [address] [place] [address] PCP - General Family Medicine 08/11/23
--- OUTSIDE RECORDS SUMMARY | 2025-02-04 12:17 | XMS_ITS | CCD ---
Author Organization [facility] Informat ion [facility] Care Team Providers Care Bag Machine Helper Name Role Phone Hector QUILES Attending Unavailable Hector QUILES Attending Unavailable Musa Caro Referring Unavailable MISC, DR TOMPKINS Primary Care Unavailable MISC, DR TOMPKINS Attending Unavailable MISC, DR TOMPKINS Admitting Unavailable ROBBIE ., YAYO Admitting Unavailable ZIEBLORI, DR THADDEUS Hair Consulting Unavailable [facility] Primary Care Unavailable ROBBIE ., YAYO Attending Unavailable HAY ., DR WILCOX Consulting Unavailable SWEENEY ., [...] Consulting Unavailable AHDOOT, JUAN LUIS Consulting Unavailable JARED JUAN PABLO Consulting Unavailable TROTTI, GIROLAMO Consulting [...] MISC, DR TOMPKINS Primary Care Unavailable ROBBIE II, BLOSSOM Consulting Unavailable RAQUEL SHETH Attending Unavailable RAQUEL SHETH Consulting Unavailable DIAB ., MIKE Consulting Unavailable KAYDEN AGUILAR Consulting Unavailable ROBBIE II, BLOSSOM Consulting Unavailable SHAMMO, DIVYA Primary Care Unavailable RAQUEL SHETH Attending Unavailable RAQUEL SHETH Admitting Unavailable RAQUEL SHETH Consulting Unavailable KENTON CLAROS Consulting Unavailable MD Sylwia De Primary Care Provider DO Raul Lopez Attending Provider Raul Lopez Attending Unavailable Sylwia De Primary Care Unavailable Raul Lopez Admitting Unavailable Raul Lopez Admitting Unavailable Raul Lopez Attending Unavailable Sylwia De Primary Care Unavailable Sylwia De MD Primary Care Provider RAUL LOPEZ Attending Unavailable RAUL LOPEZ W Attending Unavailable NEREIDA CR Attending Unavailable FABIAN LIRA Referring Unavailable ENRRIQUE FLORES Attending Unavailable DINORA ADLER Referring Unavailable FABIAN LIRA Referring Unavailable FABIAN LIRA Referring Unavailable ENRRIQUE FLORES Attending Unavailable Allergies Allergy Classification Reported Allergen(s) Allergy Type Date of Onset Reaction(s) Facility (2 sources) dapagliflozin; Translations: [DAPAGLIFLOZIN] Drug Allergy 4 [facility] Repository (4 sources) dapagliflozin Drug Allergy 4 Nausea And Vomiting [facility] Medications Current Medications Medication Drug Class(es) Dates Sig (Normalized) Sig (Original) acetaminophen 500 mg oral tablet (3 sources) Start: 2023 take 2 tablets by mouth every six hours Acetaminophen (Acetaminophen Extra Strength) 500 mg tablet Active 1000 MG PO Every 6 hours 2023 12:00am Albuterol (7 sources) beta2-Adrenergic Agonist Start: 2023 take 90 ug by inhalation every four to six hours Albuterol Active 90 MCG INHALATION .q4-6 hour 2023 12:00am take 2 puff(s) by in halation every six hours albuterol HFA 90 mcg/act inhaler Inhale 2 puffs every 6 (six) hours if needed Active apixaban 5 mg oral tablet (7 sources) Factor Xa Inhibitor Start: 11-11-2022 take 1 tablet by mouth in the morning Eliquis 5 MG tablet Take 5 mg by mouth in the morning and 5 mg in the evening. 11/11/2022 Active atorvastatin 40 mg oral tablet (7 sources) HMG-CoA Reductase Inhibitor Start: 2023 take 40 mg by mouth once daily at bedtime Atorvastatin Active 40 MG PO Daily at bedtime 2023 12:00am Start: 10-09-2022 take 10 mg by mouth at bedtime atorvastatin (Lipitor) 40 MG tablet Take 10 mg by mouth at bedtime 10/09/2022 Active busPIRone hydrochloride 15 mg oral tablet (7 sources) Start: 07-12-2023 busPIRone (Buspar) 15 MG tablet 07/12/2023 Active cetirizine hydrochloride 10 mg oral tablet (4 sources) Histamine-1 Receptor Antagonist Start: 10-31-2022 cetirizine (ZyrTEC) 10 MG tablet 10/31/2022 Active citalopram 20 mg oral tablet (7 sources) Serotonin Reuptake Inhibitor Start: 07-05-2023 citalopram (CeleXA) 20 MG tablet 07/05/2023 Active hydroCHLOROthiazide 12.5 mg oral tablet (7 sources) Thiazide Diuretic Start: 04-14-2023 take 1 tablet by mouth in the morning hydroCHLOROthiazide (HYDRODiuril) 12.5 MG tablet Take 12.5 mg by mouth in the morning. 04/14/2023 Active levothyroxine sodium 0.088 mg oral tablet (10 sources) l-Thyroxine Start: 08-27-2024 take 1 tablet by mouth in the morning levothyroxine (Synthroid, Levoxyl) 88 MCG tablet Indications: Hypothyroidism, unspecified type (CMS/HCC) Take 1 tablet (88 mcg) by mouth in the morning. on an empty stomach. 90 tablet 3 08/27/2024 Active Start: 08-27-2024 take 1 tablet by dexter th in the morning levothyroxine (Synthroid, Levoxyl) 88 MCG tablet Indications: Hypothyroidism, unspecified type (CMS/HCC) Take 1 tablet (88 mcg) by mouth in the morning. on an empty stomach. 90 tablet 3 08/27/2024 Active Start: 05-09-2024 End: 08-27-2024 take 1 tablet by mouth once daily in the morning levothyroxine (Synthroid, Levoxyl) 88 MCG tablet Indications: Hypothyroidism, unspecified type (CMS/HCC) TAKE ONE TABLET BY MOUTH EVERY MORNING ON AN EMPTY STOMACH 90 tablet 08/14/2024 08/27/2024 Discontinued (Reorder) Start: 08-23-2023 End: 08-27-2024 take 1 tablet by mouth before mealtime levothyroxine (Synthroid) 100 MCG tablet Indications: Graves disease (CMS/HCC) Take 1 tablet (100 mcg) by mouth in the morning. Take before meals. 60 tablet 08/23/2023 08/27/2024 Discontinued (Dose adjustment) losartan potassium 25 mg oral tablet (7 sources) Angiotensin 2 Receptor Dontrell Start: 2023 take 25 mg by mouth once daily in the morning Losartan Active 25 MG PO Every morning 2023 12:00am Start: 03-11-2023 losartan (Coza ar) 100 MG tablet 03/11/2023 Active magnesium oxide 400 mg oral tablet (4 sources) Start: 11-27-2022 MAGnesium-Oxide 400 (240 Mg) MG tablet 11/27/2022 Active mirtazapine 15 mg oral tablet (4 sources) Start: 06-07-2023 mirtazapine (Remeron) 15 MG tablet 06/07/2023 Active nitroglycerin 0.4 mg sublingual tablet (4 sources) Nitrate Vasodilator Start: 04-04-2023 nitroglycerin (Nitrostat) 0.4 MG SL tablet 04/04/2023 Active potassium 75 mg oral tablet (3 sources) Start: 2023 take 75 mg by mouth once daily Potassium Active 75 MG PO Daily 2023 12:00am OTC per patient traZODone hydrochloride 100 mg oral tablet (4 sources) Serotonin Reuptake Inhibitor Start: 03-20-2023 traZODone (Desyrel) 100 MG tablet 03/20/2023 Active Completed/Discontinued Medications Medication Drug Class(es) Dates Sig (Normalized) Sig (Original) methIMAzole 10 mg oral tablet (3 sources) Thyroid Hormone Synthesis Inhibitor Start: 2023 End: 08-23-2023 take 10 mg by mouth twice daily Methimazole Discontinued 10 MG PO Twice daily 2023 12:00am August 23, 2023 10:45am metoprolol tartrate 50 mg oral tablet (7 sources) beta-Adrenergic Dontrell Start: 2023 End: 08-23-2023 take 50 mg by mouth twice daily Metoprolol Tartrate Discontinued 50 MG PO Twice daily 2023 12:00am August 23, 2023 10:44am metoprolol tartr ate (Lopressor) 50 MG tablet 25 mg Daily Active metoprolol tartr ate (Lopressor) 50 MG tablet every 12 (twelve) hours Active Problems Active Problems Problem Classification Problem Date [...] AND VOMIT] Onset: 10-12-2022 Episodic Cardiac dysrhythmias (15 sources) Unspecified atrial fibrillation; Translations: [Atrial fibrillation with rapid ventricular response] Onset: 10-12-2022 Resolved: 08-10-2023 08-10-2023 Chronic Chronic obstructive pulmonary disease and bronchiectasis (5 sources) Chronic obstructive pulmonary disease, unspecified; Translations: [Chronic obstructive lung disease] Onset: 10-12-2022 Resolved: 08-10-2023 08-10-2023 Chronic Complications of surgical procedures or medical care (4 sources) Postoperative hypothyroidism; Translations: [Postprocedural hypothyroidism] Onset: 07-24-2024 08-27-2024 Chronic Conduction disorders (12 sources) Sinus node dysfunction; Translations: [Other specified heart block] Onset: 08-10-2023 Resolved: 08-10-2023 08-10-2023 Chronic Congestive heart failure; nonhypertensive (8 sources) Unspecified diastolic (congestive) heart failure; Translations: [Heart failure, unspecified] Onset: 09-26-2022 Resolved: 08-10-2023 08-10-2023 Chronic Diabetes mellitus without complication (1 source) Hyperglycemia, unspecified; Translations: [HYPERGLYCEMIA UNSPECIFIED] Onset: 10-12-2022 Episodic Disorders of lipid metabolism (8 sources) Hyperlipidemia, unspecified; Translations: [Pure hypercholesterolemia, unspecified] Onset: 09-22-2022 Chronic E Codes: Adverse effects of medical drugs (1 source) Adverse effect of loop [high-ceiling] diuretics, initial encounter; Translations: [ADVRS EFF LOOP HI-CEIL DIURETC INIT] Onset: 10-12-2022 Episodic E Codes: Place of occurrence (1 source) Unspecified place in hospital as the place of occurrence of the external cause; Translations: [UNS PLACE HOSP PLACE OCCUR EXT CAUS] Onset: 10-12-2022 Episodic Hypertension with complications and secondary hypertension (3 sources) Hypertensive heart disease with heart failure; Translations: [...] 09-15-2022 Episodic Other aftercare (1 source) 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; Translations: [OTH ASSISTED CURRENT DRUG THERAPY] Onset: 10-12-2022 Episodic Other [...] Translations: [PERS HX DZ BLD/BLD-FRM ORG IMMN [facility]] Onset: 10-12-2022 Episodic Other injuries and conditions [...] 09-24-2022 Episodic Residual codes; unclassified (1 source) Family [...] septic shock] Onset: 10-12-2022 Episodic Thyroid disorders (7 sources) Thyrotoxicosis, unspecified without thyrotoxic crisis or storm; Translations: [Thyrotoxicosis with diffuse goiter without thyrotoxic crisis or storm] Onset: 10-12-2022 08-13-2024 Chronic Unclassified (1 source) ACIDOSIS UNSPECIFIED; Translations: [ACIDOSIS UNSPECIFIED] Onset: 10-12-2022 Unclassified (1 source) CONTACT W/AND (SUSP) EXPOS COVID-19; Translations: [CONTACT W/AND (SUSP) EXPOS COVID-19] Onset: 08-24-2022 Unclassified (1 source) Other ventricular tachycardia; Translations: [Other ventricular tachycardia] Onset: 05-24-2023 Past or Other Problems Problem Classification Problem Date Documented Da te Episodic/Chronic Cardiac dysrhythmias (2 sources) Bradycardia, unspecified; Translations: [Bradycardia, unspecified] Onset: 11-03-2023 Episodic Coronary atherosclerosis and other heart disease (4 sources) Coronary arteriosclerosis; Translations: [Atherosclerotic heart disease of [place] coronary artery without angina pectoris] Onset: 04-18-2023 Resolved: 08-10-2023 08-10-2023 Chronic Diverticulosis and diverticulitis (5 sources) Diverticulosis of large intestine without perforation or abscess without bleeding; Translations: [Diverticulitis] Onset: 09-26-2022 Resolved: 08-10-2023 08-10-2023 Chronic Essential hypertension (5 sources) Essential (primary) hypertension; Translations: [Essential hypertension] Onset: 09-15-2022 Resolved: 08-10-2023 08-10-2023 Chronic Fluid and electrolyte disorders (6 sources) Hypokalemia; Translations: [Dehydration] Onset: 09-15-2022 Resolved: 08-10-2023 08-10-2023 Episodic Nonspecific chest pain (4 sources) Chest pain; Translations: [Chest pain, unspecified] Onset: 05-24-2023 Resolved: 08-10-2023 08-10-2023 Episodic Other lower respiratory disease (5 sources) Dyspnea; Translations: [Shortness of breath] Onset: 08-10-2023 Resolved: 08-10-2023 08-10-2023 Episodic Other lower respiratory disease (1 source) Shortness of breath; Translations: [Shortness of breath] Onset: 05-24-2023 Episodic Other nutritional; endocrine; and metabolic disorders (4 sources) Hypomagnesemia; Translations: [Hypomagnesemia] Onset: 10-28-2022 Resolved: 08-10-2023 08-10-2023 Chronic Other screening for suspected conditions (not mental disorders or infectious disease) (16 sources) Encounter for screening for malignant neoplasm of colon; Translations: [Cardiovascular stress test abnormal] Onset: 09-23-2022 Resolved: 08-10-2023 Episodic Other upper respiratory disease (4 sources) Allergic rhinitis due to pollen; Translations: [Allergic rhinitis due to pollen] Onset: 11-25-2022 Resolved: 08-10-2023 08-10-2023 Chronic Residual codes; unclassified (5 sources) Acquired absence of other specified parts of digestive tract; Translations: [Other postprocedural status] Onset: 10-12-2022 Resolved: 08-10-2023 08-10-2023 Episodic Residual codes; unclassified (4 sources) Insomnia; Translations: [Insomnia, unspecified] Onset: 03-07-2023 Resolved: 08-10-2023 08-10-2023 Episodic Unclassified (1 source) Other ventricular tachycardia; Translations: [Other ventricular tachycardia] Onset: 07-24-2024 Results Test Name Value Interpretation Reference Range Facility Office Visiton 07-24-2024 Follow-up visit [id number] Shahida Mirza 1970 F Date Provider Department Center 07/24/2024 ENRRIQUE CASTRO Family History Problem Relation Age of Onset Other Mother Coronary artery disease Father Other Father Family Status - Relation Status Age at Mother Father Level of Service:43286 DC OFFICE/OUTPATIENT ESTABLISHED MOD MDM 30 MIN Reason for Visit and Comments: Bradycardia [605688] pacemaker [Other] Follow-up [021477] [facility] Office Visiton 04-22-2024 Follow-up visit [id number] Shahida Mirza 1970 F Date Provider Department Center 04/22/2024 ENRRIQUE CASTRO Family History Problem Relation Age of Onset Other Mother Coronary artery disease Father Other Father Family Status - Relation Status Age at Mother Father Level of Service:99477 DC OFFICE/OUTPATIENT ESTABLISHED MOD MDM 30 MIN Reason for Visit and Comments: Sinus pause [Other] - Due for device interrogation next month. Congestive Heart Failure [127] - Denies LE edema. Hypertension [888477] - BP elevated this morning, says she hasn't taken losartan yet today. Atrial Flutter [101] - Denies palpitations and bleeding on Eliquis. Dizziness [] - Has had a few random dizzy spells. Shortness of Breath [] - No worsening, other than she has a bad cold right now. Normal [facility] Thyrotropin [Units/volume] i n Serum or PlasmaOrdered By: Raul Lopez on 10-12-2023 TSH Qn 0.02 m[IU]/L 0.45-5.33 [facility] Thyroxine (T4) [Mass/volume] in Serum or PlasmaOrdered By: Raul Lopez on 10-12-2023 T4 [Mass/Vol] 12.41 ug/dL 5.39-11.82 [facility] Triiodothyronine (T3) [Mass/ volume] in Serum or PlasmaOrdered By: Raul Lopez on 10-12-2023 T3 [Mass/Vol] 0.99 ng/mL 0.87-1.78 [facility] Amphetamine Screen Ql (U)Ord ered By: Arya Metz on 08-23-2023 Amphetamines Ql (U) Negative Negative [facility] Barbiturates [Presence] in U rine by Screen methodOrdered By: Arya Metz on 08-23-2023 Barbiturates Screen Ql (U) Negative Negative [facility] Benzodiazepines Screen Ql (U )Ordered By: Arya Metz on 08-23-2023 Benzodiazepines Ql (U) Negative Negative [facility] Benzoylecgonine [Presence] i n Urine by Screen methodOrdered By: Arya Metz on 08-23-2023 Benzoylecgonine Screen Ql (U) Negative Negative [facility] Calciumon 08-23-2023 Calcium [Mass/Vol] 8.9 mg/dL Normal 8.6-10.3 [facility] Comment on above: Result Comment: PERF ORMED BY: [place] [address] PATHOLOGIST MANAGER FOREIGN RONDA LEYVA M.D. Performed By: #### C A, PTH #### [address] Calcium [Mass/volume] in Ser um or PlasmaOrdered By: Raul Lopez on 08-23-2023 Calcium [Mass/Vol] 8.9 mg/dL 8.6-10.3 [facility] Cannabinoids [Presence] in U rine by Screen methodOrdered By: Arya Metz on 08-23-2023 Cannabinoids Screen Ql (U) Positive Negative [facility] Comment on above: These are unconfirme d results and should not be used for legal purposes. Drug Cut-Off Concentration: AMPH 1000 ng/mL GRACIELA 200 ng/mL ED 200 ng/mL COCM 300 ng/mL OP 300 ng/mL PCP 25 ng/mL THC 20 ng/mL Drug Screen,Urineon 08-23-19 Amphetamine Screen,Urine Negative Normal Negative [facility] Comment on above: Performed By: #### U RDS #### [address] Barbiturate Screen,Urine Negative Normal Negative [facility] Comment on above: Performed By: #### U RDS #### [address] Benzodiazepines Screen,Urine Negative Normal Negative [facility] Comment on above: Performed By: #### U RDS #### [address] Cannabinoid Screen,Urine Positive High Negative [facility] Comment on above: Result Comment: Thes e are unconfirmed results and should not be used for legal purposes. Drug Cut-Off Concentration: AMPH 1000 ng/mL GRACIELA 200 ng/mL ED 200 ng/mL COCM 300 ng/mL OP 300 ng/mL PCP 25 ng/mL THC 20 ng/mL PERFORMED BY: [place] [address] PATHOLOGIST MANAGER FOREIGN RONDA LEYVA M.D. Performed By: #### U RDS #### [place] [address] [place] Cocaine Screen,Urine Negative Normal Negative [facility] Comment on above: Performed By: #### U RDS #### [place] [address] [place] Opiate Screen,Urine Negative Normal Negative [facility] Comment on above: Performed By: #### U RDS #### [facility] [address] Phencyclidine Screen,Urine Negative Normal Negative [facility] Comment on above: Performed By: #### U RDS #### [facility] [address] [place] [id number] [place] Hank 08-23-2023 L Specimen: Received: 08/23/23 Status: OWEN Gallardo Num: [id number] Spec Type: Surgical Subm Dr: Raul Lopez DO Tissues: A THYROID - Lobe (RT LOBE/ISTHMUS) B THYROID - Lobe (LT LOBE) Procedures: HE/10, Gross/Micro L5/2 Age/ Patient Sex Location Account Attending Physician Shahida Mirza 53/F [place] [id number] Raul Lopez DO SPEC NUM: RECD: 08/23/23 STATUS: OWEN GALLARDO NUM: [id number] PATRICK: 08/23/[address]: Raul Lopez DO ENTERED: 08/23/[address] [facility] [address]: SPEC TYPE: Surgical [...] to inferior to reveal no mass lesions. Curriculum And Instruction Director sections are submitted in A1?A5. B.) In [...] to inferior to reveal no mass lesions. Curriculum And Instruction Director sections are submitted in B1?B5. RG Clinical history: Graves' disease Specimen: Received: 08/23/23 Status: OWEN Gallardo Num: [id number] Spec Type: Surgical Subm Dr: Raul Lopez DO Tissues: A THYROID - Lobe (RT LOBE/ISTHMUS) B THYROID - Lobe (LT LOBE) Procedures: , Gross/Micro L5/2 Patient: Shahida Mirza Anant [id number] (Continued) Specimen: Received: 08/23/23 (Continued) Signed (signature on file) Godfrey Krueger MD 08/29/23 1243 Specimen: Received: 08/23/23 Status: OWEN Gallardo Num: [id number] Spec Type: Surgical Subm Dr: Raul Lopez DO Tissues: A THYROID - Lobe (RT LOBE/ISTHMUS) B THYROID - Lobe (LT LOBE) Procedures: , Gross/Micro L5/2 Patient: Deshawn Mirzanathalie Ny [id number] (Continued) Specimen: Received: 08/23/23 (Continued) CPT Codes 15081g9 Specimen: [id number] Received: 08/23/23-1110 Status: OWEN Gallardo Num: [id number] Spec Type: Surgical Subm Dr: Raul Lopez, Tissues: A THYROID - Lobe (RT LOBE/ISTHMUS) B THYROID - Lobe (LT LOBE) Procedures: , Gross/Micro L5/2 Patient: Shahida Mirza [id number] (Continued) Signed (signature on file) Godfrey Krueger MD 08/29/23 1243 Normal [facility] Opiates [Presence] in Urine by Screen methodOrdered By: Arya Metz on 08-23-2023 Opiates Screen Ql (U) Negative Negative [facility] Parathyrin.intact [Mass/volu me] in Serum or PlasmaOrdered By: Raul Lopez on 08-23-2023 Parathyrin.intact [Mass/Vol] 20.0 pg/mL [facility] Parathyroid Hormone Intacton 08-23-2023 Parathyroid Hormone Intact 20.0 pg/mL Normal [facility] Comment on above: Order Comment: Comme nt Call to Dr. Lopez Result Comment: PERF ORMED BY: [place] [address] PATHOLOGIST MANAGER FOREIGN RONDA LEYVA M.D. Performed By: #### C A, PTH #### [address] Phencyclidine Screen Ql (U)O rdered By: Arya Metz on 08-23-2023 Phencyclidine Ql (U) Negative Negative [facility] Basic Metabolic Panelon Anion gap [Moles/Vol] 19.0 mmol/L High 6.0-15.0 [facility] Comment on above: Performed By: #### B MP #### [address] Calcium [Mass/Vol] 9.7 mg/dL Normal 8.6-10.3 [facility] Comment on above: Result Comment: PERF ORMED BY: [place] [address] PATHOLOGIST MANAGER FOREIGN RONDA LEYVA M.D. Performed By: #### B MP #### [place] [address] [place] Chloride [Moles/Vol] 101 mmol/L Normal 98-107 [facility] Comment on above: Performed By: #### B MP #### [place] [address] [place] CO2 [Moles/Vol] 28.5 mmol/L Normal 21.0-31.0 [facility] Comment on above: Performed By: #### B MP #### [place] [address] [place] Creatinine [Mass/Vol] 1.20 mg/dL Normal 0.60-1.20 [facility] Comment on above: Performed By: #### B MP #### [place] [address] [place] GFR/1.73 sq M.predicted MDRD (S/P/Bld) [Vol rate/Area] 54.127 mL/min/{1.73_m2} Normal [facility] Comment on above: Performed By: #### B MP #### [address] Glucose [Mass/Vol] 48 mg/dL Off scale low 70-100 [facility] Comment on above: Result Comment: Crit ical Result Called to and read back by: SEBASTIÁN FERGUSON at: 2023 13:13:02 by:[id number] Random Glucose Reference Range is dependent on time and content of last meal. Glucose of more than 200 mg/dL in a nonstressed, ambulatory subject supports the diagnosis of Diabetes Mellitus. ADA recommended reference range Performed By: #### B MP #### [address] Potassium [Moles/Vol] 3.5 mmol/L Normal 3.5-5.1 [facility] Comment on above: Performed By: #### B MP #### [address] Sodium [Moles/Vol] 145 mmol/L Normal 136-145 [facility] Comment on above: Performed By: #### B MP #### [address] Urea nitrogen [Mass/Vol] 17 mg/dL Normal 7-25 [facility] Comment on above: Performed By: #### B MP #### [address] Calcium [Mass/volume] in Ser um or PlasmaOrdered By: Raul Lopez on 2023 Calcium [Mass/Vol] 9.7 mg/dL 8.6-10.3 [facility] Carbon dioxide, total [Moles /volume] in Serum or PlasmaOrdered By: Raul Lopez on 2023 CO2 [Moles/Vol] 28.5 mmol/L 21.0-31.0 [facility] Chloride [Moles/volume] in S mona or PlasmaOrdered By: Raul Lopez on 2023 Chloride [Moles/Vol] 101 mmol/L 98-107 [facility] Creatinine [Mass/volume] in Serum or PlasmaOrdered By: Raul Lopez on 2023 Creatinine [Mass/Vol] 1.20 mg/dL 0.60-1.20 [facility] ECG 12 lead ECGon 2023 ECG 12 lead ECG [facility] [place] [address] Electrocardiograph Report Signed Patient: Shahida Mirza MR#: [id number] 6 : 1970 Acct:[id number] Age/Sex: 52 / F ADM Date: 08/16/23 Loc: Room: Type: [facility] Attending Dr: Raul Lopez DO Ordering Provider: [...] previous ECGs available Confirmed by JUANITA MOTA [facility], DANIEL ([id number]) on 08/17/2023 2:54:25 PM Referred By: ECTOR Electronically Signed By:DANIEL LINDA MD [facility] Transcribed By: MUS Signed By Daniel Linda MD, FAC 08/17/23 2584 Normal [facility] Glucose [Mass/volume] in Ser um or PlasmaOrdered By: Raul Lopez on 2023 Glucose [Mass/Vol] 48 mg/dL 70-100 [facility] Comment on above: Critical Result Call ed to and read back by: SEBASTIÁN FERGUSON at: 2023 13:13:02 by:[id number] recommended reference rangeRandom Glucose Reference Range is dependent on time and content of last meal. Glucose of more than 200 mg/dL in a nonstressed, ambulatory subject supports the diagnosis of Diabetes Mellitus. No Panel InformationOrdered By: Raul Lopez on 2023 Estimated GFR (CKD-EPI) 54.127 mL/Min [facility] Creatinine Clearance (Chem N/A [facility] Potassium [Moles/volume] in Serum or PlasmaOrdered By: Raul Lopze on 2023 Potassium [Moles/Vol] 3.5 mmol/L 3.5-5.1 [facility] Serum or plasma anion gap de terminationOrdered By: Raul Lopez on 2023 Anion gap [Moles/Vol] 19.0 mmol/L 6.0-15.0 [facility] Sodium [Moles/volume] in Ser um or PlasmaOrdered By: Raul Lopez on 2023 Sodium [Moles/Vol] 145 mmol/L 136-145 [facility] Urea nitrogen [Mass/volume] in Serum or PlasmaOrdered By: Raul Lopez on 2023 Urea nitrogen [Mass/Vol] 17 mg/dL 7-25 [facility] BNPon 10-09-2022 Natriuretic peptide B (Bld) [Mass/Vol] 71524.0 pg/mL Critically high <=900.0 [facility] Comment on above: Performed By: #### M G, BNP, CMP #### [facility] [address] [place] [address] Dr. Celina Venegas CBC AUTO DIFFon 10-09-2022 BASO # 0.0 103/ul Normal 0.0-0.1 [facility] Comment on above: Performed By: #### H STROPN #### [facility] [address] [address] [address] Celina Venegas Basophils/100 WBC (Bld) 0.1 % Critically low 0.2-2.0 [facility] Comment on above: Performed By: #### H STROPN #### [facility] [address] [place] [address] Dr. Celina Venegas EO # 0.0 103/ul Normal 0.0-0.7 [facility] Comment on above: Performed By: #### H STROPN #### [facility] [address] [address] [address] Celina Venegas Eosinophils/100 WBC (Bld) 0.1 % Critically low 0.9-7.0 [facility] Comment on above: Performed By: #### H STROPN #### [facility] [address] [place] [address] Dr. Celina Venegas Erythrocyte distribution width (RBC) [Ratio] 14.9 % Normal 11.0-15.0 [facility] Comment on above: Performed By: #### H STROPN #### [facility] [address] [place] [address] Dr. Celina Venegas Hematocrit (Bld) [Volume fraction] 28.5 % Critically low 36.0-48.0 [facility] Comment on above: Performed By: #### H STROPN #### [facility] [address] [place] [address] Dr. Celina Venegas Hemoglobin (Bld) [Mass/Vol] 9.1 g/dL Critically low 12.0-16.0 [facility] Comment on above: Performed By: #### H STROPN #### [facility] [address] [place] [address] Dr. Celina Venegas IG # 0.08 10e3/ul Critically high 0.00-0.03 [facility] Comment on above: Performed By: #### H STROPN #### [facility] [address] [place] [address] Dr. Celina Venegas IG % 1.2 % Critically high 0.0-0.5 [facility] Comment on above: Performed By: #### H STROPN #### [facility] [address] [place] [address] Dr. Celina Venegas LYMPH # 1.8 103/ul Normal 1.2-3.8 [facility] Comment on above: Performed By: #### H STROPN #### [facility] [address] [place] [address] Dr. Celina Venegas Lymphocytes/100 WBC (Bld) 26.7 % Normal 20.5-60.0 [facility] Comment on above: Performed By: #### H STROPN #### [facility] [address] [address] [address] Celina Venegas MANUAL DIFF REQ NO Normal [facility] Comment on above: Performed By: #### H STROPN #### [facility] [address] [place] [address] Dr. Celina Venegas MCH (RBC) [Entitic mass] 25.0 pg Critically low 26.7-34 .0 [facility] Comment on above: Performed By: #### H STROPN #### [facility] [address] [place] [address] Dr. Ceilna Venegas MCHC (RBC) [Mass/Vol] 31.9 g/dL Normal 29.9-35.2 [facility] Comment on above: Performed By: #### H STROPN #### [facility] [address] [place] [address] Dr. Celina Venegas MCV (RBC) [Entitic vol] 78.3 fL Critically low 81.0-99. 0 [facility] Comment on above: Performed By: #### H STROPN #### [facility] [address] [place] [address] Dr. Celina Venegas MONO # 0.4 103/ul Normal 0.3-0.8 [facility] Comment on above: Performed By: #### H STROPN #### [facility] [address] [place] [address] Dr. Celina Venegas Monocytes/100 WBC (Bld) 5.5 % Normal 1.7-12.0 [facility] Comment on above: Performed By: #### H STROPN #### [facility] [address] [place] [address] Dr. Celina Venegas NEUT # 4.5 103/ul Normal 1.4-6.5 [facility] Comment on above: Performed By: #### H STROPN #### [facility] [address] [place] [address] Dr. Celina Venegas Neutrophils/100 WBC (Bld) 66.4 % Normal 43.0-75.0 [facility] Comment on above: Performed By: #### H STROPN #### [facility] [address] [address] [address] Celina Venegas Platelet mean volume (Bld) [Entitic vol] 10.4 fL Normal 9.5-13.5 [facility] Comment on above: Performed By: #### H STROPN #### [facility] [address] [address] [address] Celina Venegas PLT 219 103/ul Normal 150-450 [facility] Comment on above: Performed By: #### H STROPN #### [facility] [address] [address] [address] Celina Venegas RBC 3.64 106/ul Critically low 4.20-5.40 [facility] Comment on above: Performed By: #### H STROPN #### [facility] [address] [address] [address] Celina Venegas WBC 6.8 103/ul Normal 4.0-11.0 [facility] Comment on above: Performed By: #### H STROPN #### [facility] [address] [place] [address] Dr. Celina Venegas MAGNESIUMon 10-09-2022 Magnesium [Mass/Vol] 1.7 mg/dL Critically low 1.8-2.4 [facility] Comment on above: Performed By: #### M G, BNP, CMP #### [facility] [address] [place] [address] Dr. Celina Venegas POINT OF CARE GLUCOSEon 09-13 Glucose [Mass/Vol] 120 mg/dL Critically high 74-106 [facility] Comment on above: Performed By: #### H STROPN #### [facility] [address] [address] [address] Celina Venegas POTASSIUMon 10-09-2022 Potassium [Moles/Vol] 3.6 mmol/L Normal 3.5-5.1 [facility] Comment on above: Performed By: #### M G, BNP, CMP #### [facility] [address] [address] [address] Celina Venegas PROF 14(COMP METB)on 023 Albumin [Mass/Vol] 2.6 g/dL Critically low 3.4-5.0 [facility] Comment on above: Performed By: #### M G, BNP, CMP #### [facility] [address] [address] [address] Celina Venegas Albumin/Globulin [Mass ratio] 0.8 {ratio} Normal [facility] Comment on above: Performed By: #### M G, BNP, CMP #### [facility] [address] [address] [address] Celina Venegas ALP [Catalytic activity/Vol] 112 U/L Normal 46-116 [facility] Comment on above: Performed By: #### M G, BNP, CMP #### [facility] [address] [address] [address] Celina Venegas ALT [Catalytic activity/Vol] 16 U/L Normal 14-59 [facility] Comment on above: Performed By: #### M G, BNP, CMP #### [facility] [address] [address] [address] Celina Venegas Anion gap [Moles/Vol] 10.7 mmol/L Normal [facility] Comment on above: Performed By: #### M G, BNP, CMP #### [facility] [address] [address] [address] Celina Venegas AST [Catalytic activity/Vol] 13 U/L Critically low 15-37 [facility] Comment on above: Performed By: #### M G, BNP, CMP #### [facility] [address] [address] [address] Celina Venegas Bilirubin [Mass/Vol] 0.3 mg/dL Normal 0.2-1.0 [facility] Comment on above: Performed By: #### M G, BNP, CMP #### [facility] [address] [address] [address] Celina Venegas Calcium [Mass/Vol] 8.6 mg/dL Normal 8.5-10.1 [facility] Comment on above: Performed By: #### M G, BNP, CMP #### [facility] [address] [address] [address] Celina Venegas Chloride [Moles/Vol] 109 mmol/L Critically high 98-107 [facility] Comment on above: Performed By: #### M G, BNP, CMP #### [facility] [address] [address] [address] Celina Venegas CO2 [Moles/Vol] 26.5 mmol/L Normal 21.0-32.0 [facility] Comment on above: Performed By: #### M G, BNP, CMP #### [facility] [address] [address] [address] Celina Venegas Creatinine [Mass/Vol] 0.88 mg/dL Normal 0.55-1.02 [facility] Comment on above: Performed By: #### M G, BNP, CMP #### [facility] [address] [place] [address] Dr. Celina Venegas EGFR-AF ERITREAN >60 Normal >=60 [facility] Comment on above: Performed By: #### M G, BNP, CMP #### [facility] [address] [place] [address] Dr. Celina Venegas EGFR-NON AF ERITREAN >60 Normal >=60 [facility] Comment on above: Performed By: #### M G, BNP, CMP #### [facility] [address] [place] [address] Dr. Celina Venegas Globulin (S) [Mass/Vol] 3.4 g/dL Normal [facility] Comment on above: Performed By: #### M G, BNP, CMP #### [facility] [address] [place] [address] Dr. Celina Venegas Glucose [Mass/Vol] 84 mg/dL Normal 74-106 [facility] Comment on above: Performed By: #### M G, BNP, CMP #### [facility] [address] [place] [address] Dr. Celina Venegas Potassium [Moles/Vol] 2.2 mmol/L Critically low 3.5-5.1 [facility] Comment on above: Performed By: #### M G, BNP, CMP #### [facility] [address] [place] [address] Dr. Celina Venegas Protein [Mass/Vol] 6.0 g/dL Critically low 6.4-8.2 [facility] Comment on above: Performed By: #### M G, BNP, CMP #### [facility] [address] [place] [address] Dr. Celina Venegas Sodium [Moles/Vol] 142 mmol/L Normal 136-145 [facility] Comment on above: Performed By: #### M G, BNP, CMP #### [facility] [address] [place] [address] Dr. Celina Venegas Urea nitrogen [Mass/Vol] 24.0 mg/dL Critically high 7.0-18 .0 [facility] Comment on above: Performed By: #### M G, BNP, CMP #### [facility] [address] [place] [address] Dr. Celina Venegas Urea nitrogen/Creatinine [Mass ratio] 27.3 mg/mg Normal [facility] Comment on above: Performed By: #### M G, BNP, CMP #### [facility] [address] [place] [address] Dr. Celina Venegas PROTIMEon 10-09-2022 INR Coag (PPP) [Relative time] 1.04 {INR} Normal [facility] Comment on above: Performed By: #### B [id number] #### [facility] [address] [place] [address] Dr. Celina Venegas INR GUIDELINES SEE BELOW Normal [facility] Comment on above: Result Comment: CAESAR RED INR: 2.0 - 3.0 CONDITIONS NOT LISTED BELOW 2.5 - 3.5 FOR PROSTHETIC HEART VALVE REPLACEMENT 2.5 - 3.5 RECURRENT THROMBOSIS Performed By: #### B [id number] #### [facility] [address] [place] [address] Dr. Celina Venegas PT Coag (PPP) [Time] 11.0 s Normal 9.0-11.6 [facility] Comment on above: Performed By: #### B LDCX2 #### [facility] [address] [place] [address] Dr. Celina Venegas PTTon 10-09-2022 aPTT Coag (Bld) [Time] 23.9 s Normal 22.3-36.2 [facility] Comment on above: Performed By: #### B LDCX2 #### [facility] [address] [place] [address] Dr. Celina Venegas BNPon 10-08-2022 Natriuretic peptide B (Bld) [Mass/Vol] 19937.0 pg/mL Critically high <=900.0 [facility] Comment on above: Performed By: #### P REG #### [facility] [address] [place] [address] Dr. Celina Venegas CBC AUTO DIFFon 10-08-2022 BASO # 0.0 103/ul Normal 0.0-0.1 [facility] Comment on above: Performed By: #### B [id number] #### [facility] [address] [place] [address] Dr. Celina Venegas Basophils/100 WBC (Bld) 0.1 % Critically low 0.2-2.0 [facility] Comment on above: Performed By: #### B [id number] #### [facility] [address] [place] [address] Dr. Celina Venegas EO # 0.0 103/ul Normal 0.0-0.7 [facility] Comment on above: Performed By: #### B [id number] #### [facility] [address] [place] [address] Dr. Celina Venegas Eosinophils/100 WBC (Bld) 0.0 % Critically low 0.9-7.0 [facility] Comment on above: Performed By: #### B LDCX1 #### [facility] [address] [place] [address] Dr. Celina Venegas Erythrocyte distribution width (RBC) [Ratio] 14.6 % Normal 11.0-15.0 [facility] Comment on above: Performed By: #### B LDCX1 #### [facility] [address] [place] [address] Dr. Celina Venegas Hematocrit (Bld) [Volume fraction] 26.6 % Critically low 36.0-48.0 [facility] Comment on above: Performed By: #### B LDCX1 #### [facility] [address] [place] [address] Dr. Celina Venegas Hemoglobin (Bld) [Mass/Vol] 8.4 g/dL Critically low 12.0-16.0 [facility] Comment on above: Performed By: #### B LDCX1 #### [facility] [address] [place] [address] Dr. Celina Venegas IG # 0.03 10e3/ul Normal 0.00-0.03 [facility] Comment on above: Performed By: #### B LDCX1 #### [facility] [address] [place] [address] Dr. Celina Venegas IG % 0.4 % Normal 0.0-0.5 [facility] Comment on above: Performed By: #### B LDCX1 #### [facility] [address] [place] [address] Dr. Celian Venegas LYMPH # 0.7 103/ul Critically low 1.2-3.8 [facility] Comment on above: Performed By: #### B LDCX1 #### [facility] [address] [place] [address] Dr. Celina Venegas Lymphocytes/100 WBC (Bld) 10.3 % Critically low 20.5-60.0 [facility] Comment on above: Performed By: #### B LDCX1 #### [facility] [address] [place] [address] Dr. Celina Venegas MANUAL DIFF REQ NO Normal [facility] Comment on above: Performed By: #### B LDCX1 #### [facility] [address] [place] [address] Dr. Celina Venegas MCH (RBC) [Entitic mass] 25.2 pg Critically low 26.7-34 .0 [facility] Comment on above: Performed By: #### B LDCX1 #### [facility] [address] [place] [address] Dr. Celina Venegas MCHC (RBC) [Mass/Vol] 31.6 g/dL Normal 29.9-35.2 [facility] Comment on above: Performed By: #### B LDCX1 #### [facility] [address] [place] [address] Dr. Celina Venegas MCV (RBC) [Entitic vol] 79.9 fL Critically low 81.0-99. 0 [facility] Comment on above: Performed By: #### B LDCX1 #### [facility] [address] [address] [address] Celina Venegas MONO # 0.3 103/ul Normal 0.3-0.8 [facility] Comment on above: Performed By: #### B LDCX1 #### [facility] [address] [place] [address] Dr. Celina Venegas Monocytes/100 WBC (Bld) 4.9 % Normal 1.7-12.0 [facility] Comment on above: Performed By: #### B LDCX1 #### [facility] [address] [place] [address] Dr. Celina Venegas NEUT # 5.8 103/ul Normal 1.4-6.5 [facility] Comment on above: Performed By: #### B LDCX1 #### [facility] [address] [place] [address] Dr. Celina Venegas Neutrophils/100 WBC (Bld) 84.3 % Critically high 43.0-75.0 [facility] Comment on above: Performed By: #### B LDCX1 #### [facility] [address] [address] [address] Celina Venegas Platelet mean volume (Bld) [Entitic vol] 10.5 fL Normal 9.5-13.5 [facility] Comment on above: Performed By: #### B LDCX1 #### [facility] [address] [address] [address] Celina Venegas PLT 207 103/ul Normal 150-450 [facility] Comment on above: Performed By: #### B LDCX1 #### [facility] [address] [address] [address] Celina Venegas RBC 3.33 106/ul Critically low 4.20-5.40 [facility] Comment on above: Performed By: #### B LDCX1 #### [facility] [address] [address] [address] Celina Venegas WBC 6.9 103/ul Normal 4.0-11.0 [facility] Comment on above: Performed By: #### B LDCX1 #### [facility] [address] [place] [address] Dr. Celina Venegas MAGNESIUMon 10-08-2022 Magnesium [Mass/Vol] 1.8 mg/dL Normal 1.8-2.4 [facility] Comment on above: Performed By: #### P REG #### [facility] [address] [place] [address] Dr. Celina Venegas POINT OF CARE GLUCOSEon 09-13 Glucose [Mass/Vol] 180 mg/dL Critically high 74-106 [facility] Comment on above: Performed By: #### M G, BNP, CMP #### [facility] [address] [place] [address] Dr. Celina Venegas Glucose [Mass/Vol] 116 mg/dL Critically high 74-106 [facility] Comment on above: Performed By: #### M G, BNP, CMP #### [facility] [address] [place] [address] Dr. Celina Venegas PROF 14(COMP METB)on 023 Albumin [Mass/Vol] 2.4 g/dL Critically low 3.4-5.0 [facility] Comment on above: Performed By: #### P REG #### [facility] [address] [place] [address] Dr. Celina Venegas Albumin/Globulin [Mass ratio] 0.7 {ratio} Normal [facility] Comment on above: Performed By: #### P REG #### [facility] [address] [place] [address] Dr. Celina Venegas ALP [Catalytic activity/Vol] 124 U/L Critically high 46-116 [facility] Comment on above: Performed By: #### P REG #### [facility] [address] [address] [address] Celina Venegas ALT [Catalytic activity/Vol] 17 U/L Normal 14-59 [facility] Comment on above: Performed By: #### P REG #### [facility] [address] [address] [address] Celina Venegas Anion gap [Moles/Vol] 10.6 mmol/L Normal [facility] Comment on above: Performed By: #### P REG #### [facility] [address] [address] [address] Celina Venegas AST [Catalytic activity/Vol] 14 U/L Critically low 15-37 [facility] Comment on above: Performed By: #### P REG #### [facility] [address] [address] [address] Celina Venegas Bilirubin [Mass/Vol] 0.2 mg/dL Normal 0.2-1.0 [facility] Comment on above: Performed By: #### P REG #### [facility] [address] [address] [address] Celina Venegas Calcium [Mass/Vol] 9.1 mg/dL Normal 8.5-10.1 [facility] Comment on above: Performed By: #### P REG #### [facility] [address] [address] [address] Celina Venegas Chloride [Moles/Vol] 110 mmol/L Critically high 98-107 [facility] Comment on above: Performed By: #### P REG #### [facility] [address] [address] [address] Celina Venegas CO2 [Moles/Vol] 26.8 mmol/L Normal 21.0-32.0 [facility] Comment on above: Performed By: #### P REG #### [facility] [address] [address] [address] Celina Venegas Creatinine [Mass/Vol] 0.81 mg/dL Normal 0.55-1.02 [facility] Comment on above: Performed By: #### P REG #### [facility] [address] [address] [address] Celina Venegas EGFR-AF ERITREAN >60 Normal >=60 [facility] Comment on above: Performed By: #### P REG #### [facility] [address] [address] [address] Celina Venegas EGFR-NON AF ERITREAN >60 Normal >=60 [facility] Comment on above: Performed By: #### P REG #### [facility] [address] [address] [address] Celina Venegas Globulin (S) [Mass/Vol] 3.6 g/dL Normal [facility] Comment on above: Performed By: #### P REG #### [facility] [address] [address] [address] Celina Venegas Glucose [Mass/Vol] 145 mg/dL Critically high 74-106 [facility] Comment on above: Performed By: #### P REG #### [facility] [address] [address] [address] Celina Venegas Potassium [Moles/Vol] 3.4 mmol/L Critically low 3.5-5.1 [facility] Comment on above: Performed By: #### P REG #### [facility] [address] [address] [address] Celina Venegas Protein [Mass/Vol] 6.0 g/dL Critically low 6.4-8.2 [facility] Comment on above: Performed By: #### P REG #### [facility] [address] [address] [address] Celina Venegas Sodium [Moles/Vol] 144 mmol/L Normal 136-145 [facility] Comment on above: Performed By: #### P REG #### [facility] [address] [address] [address] Celina Venegas Urea nitrogen [Mass/Vol] 20.0 mg/dL Critically high 7.0-18 .0 [facility] Comment on above: Performed By: #### P REG #### [facility] [address] [place] [address] Dr. Celina Venegas Urea nitrogen/Creatinine [Mass ratio] 24.7 mg/mg Normal [facility] Comment on above: Performed By: #### P REG #### [facility] [address] [place] [address] Dr. Celina Venegas PROTIMEon 10-08-2022 INR Coag (PPP) [Relative time] 1.04 {INR} Normal [facility] Comment on above: Performed By: #### H STROPN #### [facility] [address] [place] [address] Dr. Celnia Venegas INR GUIDELINES SEE BELOW Normal [facility] Comment on above: Result Comment: CAESAR RED INR: 2.0 - 3.0 CONDITIONS NOT LISTED BELOW 2.5 - 3.5 FOR PROSTHETIC HEART VALVE REPLACEMENT 2.5 - 3.5 RECURRENT THROMBOSIS Performed By: #### H STROPN #### [facility] [address] [place] [address] Dr. Celina Venegas PT Coag (PPP) [Time] 11.0 s Normal 9.0-11.6 [facility] Comment on above: Performed By: #### H STROPN #### [facility] [address] [place] [address] Dr. Celina Venegas PTTon 10-08-2022 aPTT Coag (Bld) [Time] 26.8 s Normal 22.3-36.2 [facility] Comment on above: Performed By: #### H STROPN #### [facility] [address] [place] [address] Dr. Celina Venegas XR CHEST 1 Von [...] MYCHAL STOREY Date: 2022-10-08 05:51 Normal [facility] BLOOD GASES BTYon 10-07-2022 02 MODE VENTILATOR Normal [facility] Comment on above: Performed By: #### M G, BNP, CMP #### [facility] [address] [place] [address] Dr. Celina Venegas ALLENS TEST Positive Normal [facility] Comment on above: Performed By: #### M G, BNP, CMP #### [facility] [address] [address] [address] Celina Venegas Base excess Calc (Bld) [Moles/Vol] -6.1000 mmol/L Critically low -2.0-2.0 [facility] Comment on above: Performed By: #### M G, BNP, CMP #### [facility] [address] [place] [address] Dr. Celina Venegas BIPAP PRESSURE Normal [facility] Comment on above: Performed By: #### M G, BNP, CMP #### [facility] [address] [place] [address] Dr. Celina Venegas CPAP [facility] Comment on above: Performed By: #### M G, BNP, CMP #### [facility] [address] [place] [address] Dr. Celina Venegas FIO2 30.00 % Normal [facility] Comment on above: Performed By: #### M G, BNP, CMP #### [facility] [address] [place] [address] Dr. Celina Venegas HCO3 (Bld) [Moles/Vol] 20.2 mmol/L Critically low 22.0-26. 0 [facility] Comment on above: Performed By: #### M G, BNP, CMP #### [facility] [address] [place] [address] Dr. Celina Venegas LPM [facility] Comment on above: Performed By: #### M G, BNP, CMP #### [facility] [address] [place] [address] Dr. Celina Venegas MINUTE VOLUME Normal [facility] Comment on above: Performed By: #### M G, BNP, CMP #### [facility] [address] [address] [address] Celina Venegas Oxygen (Bld) [Partial pressure] 102.0 mm[Hg] Critically high 80.0-100.0 [facility] Comment on above: Performed By: #### M G, BNP, CMP #### [facility] [address] [address] [address] Celina Venegas Oxygen saturation in Blood 97.8 % Normal 95.0-100.0 [facility] Comment on above: Performed By: #### M G, BNP, CMP #### [facility] [address] [address] [address] Celina Venegas PCO2 40.9 mmHg Normal 35.0-45.0 [facility] Comment on above: Performed By: #### M G, BNP, CMP #### [facility] [address] [place] [address] Dr. Celina Venegas PEEP 5 [facility] Comment on above: Performed By: #### M G, BNP, CMP #### [facility] [address] [place] [address] Dr. Celina Venegas pH (Bld) 7.303 [pH] Critically low 7.350-7.450 [facility] Comment on above: Performed By: #### M G, BNP, CMP #### [facility] [address] [place] [address] Dr. Celina Venegas PIP [facility] Comment on above: Performed By: #### M G, BNP, CMP #### [facility] [address] [address] [address] Celina Venegas PS [facility] Comment on above: Performed By: #### M G, BNP, CMP #### [facility] [address] [place] [address] Dr. Celina Venegas PUNCTURE SITE RR Normal [facility] Comment on above: Performed By: #### M G, BNP, CMP #### [facility] [address] [place] [address] Dr. Celina Venegas RATE 16 bpm Normal [facility] Comment on above: Performed By: #### M G, BNP, CMP #### [facility] [address] [place] [address] Dr. Celina Venegas VENT MODE A/C Normal [facility] Comment on above: Performed By: #### M G, BNP, CMP #### [facility] [address] [place] [address] Dr. Celina Venegas VT 400 ML [facility] Comment on above: Performed By: #### M G, BNP, CMP #### [facility] [address] [place] [address] Dr. Celina Venegas Base excess Calc (Bld) [Moles/Vol] -2.5000 mmol/L Critically low -2.0-2.0 [facility] Comment on above: Performed By: #### M G, BNP, CMP #### [facility] [address] [place] [address] Dr. Celina Venegas HCO3 (Bld) [Moles/Vol] 23.3 mmol/L Normal 22.0-26.0 [facility] Comment on above: Performed By: #### M G, BNP, CMP #### [facility] [address] [place] [address] Dr. Celina Venegas Oxygen (Bld) [Partial pressure] 97.7 mm[Hg] Normal 80.0-100.0 [facility] Comment on above: Performed By: #### M G, BNP, CMP #### [facility] [address] [place] [address] Dr. Celina Venegas Oxygen saturation in Blood 98.0 % Normal 95.0-100.0 [facility] Comment on above: Performed By: #### M G, BNP, CMP #### [facility] [address] [place] [address] Dr. Celina Venegas PCO2 43.6 mmHg Normal 35.0-45.0 [facility] Comment on above: Performed By: #### M G, BNP, CMP #### [facility] [address] [place] [address] Dr. Celina Venegas pH (Bld) 7.336 [pH] Critically low 7.350-7.450 [facility] Comment on above: Performed By: #### M G, BNP, CMP #### [facility] [address] [place] [address] Dr. Celina Venegas CBC AUTO DIFFon 10-07-2022 BASO # 0.0 103/ul Normal 0.0-0.1 [facility] Comment on above: Performed By: #### C BC #### [facility] [address] [address] [address] Celina Venegas Basophils/100 WBC (Bld) 0.0 % Critically low 0.2-2.0 [facility] Comment on above: Performed By: #### C BC #### [facility] [address] [place] [address] Dr. Celina Venegas EO # 0.0 103/ul Normal 0.0-0.7 [facility] Comment on above: Performed By: #### C BC #### [facility] [address] [place] [address] Dr. Celina Venegas Eosinophils/100 WBC (Bld) 0.0 % Critically low 0.9-7.0 [facility] Comment on above: Performed By: #### C BC #### [facility] [address] [place] [address] Dr. Celina Venegas Erythrocyte distribution width (RBC) [Ratio] 14.6 % Normal 11.0-15.0 [facility] Comment on above: Performed By: #### C BC #### [facility] [address] [place] [address] Dr. Celina Venegas Hematocrit (Bld) [Volume fraction] 31.7 % Critically low 36.0-48.0 [facility] Comment on above: Performed By: #### C BC #### [facility] [address] [place] [address] Dr. Celina Venegas Hemoglobin (Bld) [Mass/Vol] 9.5 g/dL Critically low 12.0-16.0 [facility] Comment on above: Performed By: #### C BC #### [facility] [address] [address] [address] Celina Venegas IG # 0.04 10e3/ul Critically high 0.00-0.03 [facility] Comment on above: Performed By: #### C BC #### [facility] [address] [place] [address] Dr. Celina Venegas IG % 0.5 % Normal 0.0-0.5 [facility] Comment on above: Performed By: #### C BC #### [facility] [address] [place] [address] Dr. Celina Venegas LYMPH # 0.8 103/ul Critically low 1.2-3.8 [facility] Comment on above: Performed By: #### C BC #### [facility] [address] [place] [address] Dr. Celina Venegas Lymphocytes/100 WBC (Bld) 10.1 % Critically low 20.5-60.0 [facility] Comment on above: Performed By: #### C BC #### [facility] [address] [place] [address] Dr. Celina Venegas MANUAL DIFF REQ NO Normal [facility] Comment on above: Performed By: #### C BC #### [facility] [address] [place] [address] Dr. Celina Venegas MCH (RBC) [Entitic mass] 24.2 pg Critically low 26.7-34 .0 [facility] Comment on above: Performed By: #### C BC #### [facility] [address] [place] [address] Dr. Celina Venegas MCHC (RBC) [Mass/Vol] 30.0 g/dL Normal 29.9-35.2 [facility] Comment on above: Performed By: #### C BC #### [facility] [address] [place] [address] Dr. Celina Venegas MCV (RBC) [Entitic vol] 80.7 fL Critically low 81.0-99. 0 [facility] Comment on above: Performed By: #### C BC #### [facility] [address] [place] [address] Dr. Celina Venegas MONO # 0.1 103/ul Critically low 0.3-0.8 [facility] Comment on above: Performed By: #### C BC #### [facility] [address] [place] [address] Dr. Celina Venegas Monocytes/100 WBC (Bld) 1.4 % Critically low 1.7-12.0 [facility] Comment on above: Performed By: #### C BC #### [facility] [address] [place] [address] Dr. Celina Venegas NEUT # 6.8 103/ul Critically high 1.4-6.5 [facility] Comment on above: Performed By: #### C BC #### [facility] [address] [place] [address] Dr. Celina Venegas Neutrophils/100 WBC (Bld) 88.0 % Critically high 43.0-75.0 [facility] Comment on above: Performed By: #### C BC #### [facility] [address] [place] [address] Dr. Celina Venegas Platelet mean volume (Bld) [Entitic vol] 10.5 fL Normal 9.5-13.5 [facility] Comment on above: Performed By: #### C BC #### [facility] [address] [place] [address] Dr. Celina Venegas PLT 194 103/ul Normal 150-450 [facility] Comment on above: Performed By: #### C BC #### [facility] [address] [place] [address] Dr. Celina Venegas RBC 3.93 106/ul Critically low 4.20-5.40 [facility] Comment on above: Performed By: #### C BC #### [facility] [address] [place] [address] Dr. Celina Venegas WBC 7.8 103/ul Normal 4.0-11.0 [facility] Comment on above: Performed By: #### C BC #### [facility] [address] [place] [address] Dr. Celian Venegas CULTURE BLOODon 10-07-2022 Microscopic examination of blood, culture Culture Observations: NO GROWTH AT 5 DAYS. Normal [facility] Comment on above: Performed By: #### H STROPN #### [facility] [address] [address] [address] Celina Venegas Microscopic examination of blood, culture Culture Observations: NO GROWTH AT 5 DAYS. Normal [facility] Comment on above: Performed By: #### H STROPN #### [facility] [id number] Celina Venegas ECHOCARDIO M/2D COMPLETEon 0 10-07-2022 ECHOCARDIO M/2D COMPLETE Patient: SHAHIDA MIRZA Exam Date: 10/07/2022 : 1970 Gender:F Ordering : SHAIKH Juliana SKELTON . 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 on 10/07/2022 at 17:48 Normal [facility] FREE T3on 10-07-2022 FREE T3 3.12 pg/mlL Normal 2.18-3.98 [facility] Comment on above: Performed By: #### B [id number] #### [facility] [address] [place] [address] Dr. Celina Venegas FREE T4on 10-07-2022 Free T4 [Mass/Vol] 1.63 ng/dL Critically high 0.76-1.46 [facility] Comment on above: Performed By: #### H STROPN #### [facility] [address] [place] [address] Dr. Celina Venegas GLYCOHEMOGLOBIN A1Con 2022 ADA RECOMMENDATION SEE BELOW Normal [facility] Comment on above: Result Comment: ADA RECOMMENDED LIMIT 4.0 - 6.0 ADA THERAPEUTIC TARGET < 7.0 ACTION SUGGESTED > 7.0 Performed By: #### B LDCX1 #### [facility] [address] [place] [address] Dr. Celina Venegas Glucose [Mass/Vol] 117 mg/dL Normal [facility] Comment on above: Performed By: #### B [id number] #### [facility] [address] [place] [address] Dr. Celina Venegas HbA1c (Bld) [Mass fraction] 5.7 % Normal 4.5-6.2 [facility] Comment on above: Performed By: #### B LDCX1 #### [facility] [address] [place] [address] Dr. Celina Venegas MAGNESIUMon 10-07-2022 Magnesium [Mass/Vol] 1.5 mg/dL Critically low 1.8-2.4 [facility] Comment on above: Performed By: #### M G, BNP, CMP #### [facility] [address] [place] [address] Dr. Celina Venegas POINT OF CARE GLUCOSEon 09-13 Glucose [Mass/Vol] 247 mg/dL Critically high 74-106 [facility] Comment on above: Performed By: #### M G, BNP, CMP #### [facility] [address] [place] [address] Dr. Celina Venegas Glucose [Mass/Vol] 152 mg/dL Critically high 74-106 [facility] Comment on above: Performed By: #### B [id number] #### [facility] [address] [place] [address] Dr. Celina Venegas PROF 14(COMP METB)on 023 Albumin [Mass/Vol] 2.5 g/dL Critically low 3.4-5.0 [facility] Comment on above: Performed By: #### M G, BNP, CMP #### [facility] [address] [place] [address] Dr. Celina Venegas Albumin/Globulin [Mass ratio] 0.6 {ratio} Normal [facility] Comment on above: Performed By: #### M G, BNP, CMP #### [facility] [address] [place] [address] Dr. Celina Venegas ALP [Catalytic activity/Vol] 167 U/L Critically high 46-116 [facility] Comment on above: Performed By: #### M G, BNP, CMP #### [facility] [address] [place] [address] Dr. Celina Venegas ALT [Catalytic activity/Vol] 22 U/L Normal 14-59 [facility] Comment on above: Performed By: #### M G, BNP, CMP #### [facility] [address] [address] [address] Celina Venegas Anion gap [Moles/Vol] 15.1 mmol/L Normal [facility] Comment on above: Performed By: #### M G, BNP, CMP #### [facility] [address] [place] [address] Dr. Celina Venegas AST [Catalytic activity/Vol] 26 U/L Normal 15-37 [facility] Comment on above: Performed By: #### M G, BNP, CMP #### [facility] [address] [place] [address] Dr. Celina Venegas Bilirubin [Mass/Vol] 0.2 mg/dL Normal 0.2-1.0 [facility] Comment on above: Performed By: #### M G, BNP, CMP #### [facility] [address] [place] [address] Dr. Celina Venegas Calcium [Mass/Vol] 8.2 mg/dL Critically low 8.5-10.1 [facility] Comment on above: Performed By: #### M G, BNP, CMP #### [facility] [address] [place] [address] Dr. Celina Venegas Chloride [Moles/Vol] 107 mmol/L Normal 98-107 [facility] Comment on above: Performed By: #### M G, BNP, CMP #### [facility] [address] [place] [address] Dr. Celina Venegas CO2 [Moles/Vol] 23.8 mmol/L Normal 21.0-32.0 [facility] Comment on above: Performed By: #### M G, BNP, CMP #### [facility] [address] [place] [address] Dr. Celina Venegas Creatinine [Mass/Vol] 1.09 mg/dL Critically high 0.55-1.02 [facility] Comment on above: Performed By: #### M G, BNP, CMP #### [facility] [address] [place] [address] Dr. Celina Venegas EGFR-AF ERITREAN >60 Normal >=60 [facility] Comment on above: Performed By: #### M G, BNP, CMP #### [facility] [address] [address] [address] Celina Venegas EGFR-NON AF ERITREAN 53 mL/min/1.73m2 Critically low >=60 [facility] Comment on above: Performed By: #### M G, BNP, CMP #### [facility] [address] [address] [address] Celina Venegas Globulin (S) [Mass/Vol] 3.9 g/dL Normal [facility] Comment on above: Performed By: #### M G, BNP, CMP #### [facility] [address] [address] [address] Celina Venegas Glucose [Mass/Vol] 244 mg/dL Critically high 74-106 [facility] Comment on above: Performed By: #### M G, BNP, CMP #### [facility] [address] [address] [address] Celina Venegas Potassium [Moles/Vol] 3.9 mmol/L Normal 3.5-5.1 [facility] Comment on above: Performed By: #### M G, BNP, CMP #### [facility] [address] [address] [address] Celina Venegas Protein [Mass/Vol] 6.4 g/dL Normal 6.4-8.2 [facility] Comment on above: Performed By: #### M G, BNP, CMP #### [facility] [address] [address] [address] Celina Venegas Sodium [Moles/Vol] 142 mmol/L Normal 136-145 [facility] Comment on above: Performed By: #### M G, BNP, CMP #### [facility] [address] [address] [address] Celina Venegas Urea nitrogen [Mass/Vol] 18.0 mg/dL Normal 7.0-18.0 [facility] Comment on above: Performed By: #### M G, BNP, CMP #### [facility] [address] [address] [address] Celina Venegas Urea nitrogen/Creatinine [Mass ratio] 16.5 mg/mg Normal [facility] Comment on above: Performed By: #### M G, BNP, CMP #### [facility] [address] [place] [address] Dr. Celina Venegas PROTIMEon 10-07-2022 INR Coag (PPP) [Relative time] 1.00 {INR} Normal [facility] Comment on above: Performed By: #### B LDCX2 #### [facility] [address] [place] [address] Dr. Celina Venegas INR GUIDELINES SEE BELOW Normal [facility] Comment on above: Result Comment: CAESAR RED INR: 2.0 - 3.0 CONDITIONS NOT LISTED BELOW 2.5 - 3.5 FOR PROSTHETIC HEART VALVE REPLACEMENT 2.5 - 3.5 RECURRENT THROMBOSIS Performed By: #### B LDCX2 #### [facility] [address] [place] [address] Dr. Celina Venegas PT Coag (PPP) [Time] 10.6 s Normal 9.0-11.6 [facility] Comment on above: Performed By: #### B LDCX2 #### [facility] [address] [place] [address] Dr. Celina Venegas INR Coag (PPP) [Relative time] 1.01 {INR} Normal [facility] Comment on above: Performed By: #### M G, BNP, CMP #### [facility] [address] [place] [address] Dr. Celina Venegas INR GUIDELINES SEE BELOW Normal [facility] Comment on above: Result Comment: CAESAR RED INR: 2.0 - 3.0 CONDITIONS NOT LISTED BELOW 2.5 - 3.5 FOR PROSTHETIC HEART VALVE REPLACEMENT 2.5 - 3.5 RECURRENT THROMBOSIS Performed By: #### M G, BNP, CMP #### [facility] [address] [place] [address] Dr. Celina Venegas PT Coag (PPP) [Time] 10.7 s Normal 9.0-11.6 [facility] Comment on above: Performed By: #### M G, BNP, CMP #### [facility] [address] [place] [address] Dr. Celina Venegas PTTon 10-07-2022 aPTT Coag (Bld) [Time] 20.4 s Critically low 22.3-36.2 [facility] Comment on above: Performed By: #### B LDCX2 #### [facility] [address] [place] [address] Dr. Celina Venegas aPTT Coag (Bld) [Time] 25.2 s Normal 22.3-36.2 [facility] Comment on above: Performed By: #### M G, BNP, CMP #### [facility] [address] [place] [address] Dr. Celina Venegas T4on 10-07-2022 T4 [Mass/Vol] 10.20 ug/dL Normal 4.80-13.90 [facility] Comment on above: Performed By: #### B LDCX1 #### [facility] [address] [place] [address] Dr. Celina Venegas TROPONIN, HIGH SENSITIVITYon 10-07-2022 HSTROP 279.6 pg/mL Critically high 4.0-51.3 [facility] Comment on above: Result Comment: CUT- OFF POINTS HAVE BEEN ESTABLISHED BASED ON THE FOURTH UNIVERSAL DEFINITIONS OF MYOCARDIAL INFARCTION. THE UPPER REFERENCE LIMIT (URL) OF TROPONIN, DEFINED THE 99TH PERCENTILE OF cTnI DISTRIBUTION IN A REFERENCE POPULATION, HAS BEEN CONFIRMED THE DECISION THRESHOLD FOR MT DIAGNOSIS. Performed By: #### M G, BNP, CMP #### [facility] [address] [place] [address] Dr. Celina Venegas HSTROP 336.1 pg/mL Critically high 4.0-51.3 [facility] Comment on above: Result Comment: CUT- OFF POINTS HAVE BEEN ESTABLISHED BASED ON THE FOURTH UNIVERSAL DEFINITIONS OF MYOCARDIAL INFARCTION. THE UPPER REFERENCE LIMIT (URL) OF TROPONIN, DEFINED THE 99TH PERCENTILE OF cTnI DISTRIBUTION IN A REFERENCE POPULATION, HAS BEEN CONFIRMED THE DECISION THRESHOLD FOR MT DIAGNOSIS. Performed By: #### M G, BNP, CMP #### [facility] [address] [place] [address] Dr. Celina Venegas TSHon 10-07-2022 TSH Qn m[IU]/L Critically low 0.358-3.740 [facility] Comment on above: Performed By: #### M G, BNP, CMP #### [facility] [address] [address] [address] Celnia Venegas XR CHEST 1 Von 10-07-2022 XR CHEST 1 V EXAM: XR CHEST 1 V HISTORY: SHORTNESS OF BREATH COMPARISON: 10/07/2022 TECHNIQUE: AP view of the chest. Findings/impression: Decreasing bibasilar airspace disease. Stable cardiac silhouette. No pneumothorax. Trace bilateral pleural effusions. Stable ET and NG tubes. Electronically authenticated by: LOUISE POLLOCK Date: 2022-10-07 09:31 Normal [facility] XR CHEST 1 V EXAM: XR [...] EMILE DOWNS Date: 2022-10-07 05:44 Normal [facility] XR KUB 1 VIEWon 10-07-2022 XR [...] Juaquin COLEMAN Date: 2022-10-06 23:40 Normal [facility] ACETAMINOPHENon 10-06-2022 Acetaminophen [Mass/Vol] ug/mL Critically low 10.0-30 .[address] [facility] Comment on above: Performed By: #### H STROPN #### [facility] [address] [address] [address] Celina Venegas ACETONE SERUMon 10-06-2022 ACETONE Negative Normal NEGATIVE [facility] Comment on above: Performed By: #### B LDCX1 #### [facility] [address] [place] [address] Dr. Celina Venegas BLOOD GASES BTYon 10-06-2022 02 MODE VENTILATOR Normal [facility] Comment on above: Performed By: #### M G, BNP, CMP #### [facility] [address] [place] [address] Dr. Celina Venegas Performed By: #### A BG #### [facility] [address] [place] [address] Dr. Celina Venegas ALLENS TEST Positive [facility] Comment on above: Performed By: #### M G, BNP, CMP #### [facility] [address] [place] [address] Dr. Celina Venegas Performed By: #### A BG #### [facility] [address] [place] [address] Dr. Celina Venegas Base excess Calc (Bld) [Moles/Vol] -8.9000 mmol/L Critically low -2.0-2.0 [facility] Comment on above: Performed By: #### A BG #### [facility] [address] [place] [address] Dr. Celina Venegas BIPAP PRESSURE Normal [facility] Comment on above: Performed By: #### M G, BNP, CMP #### [facility] [address] [place] [address] Dr. Celina Venegas Performed By: #### A BG #### [facility] [address] [place] [address] Dr. Celina Venegas CPAP [facility] Comment on above: Performed By: #### M G, BNP, CMP #### [facility] [address] [place] [address] Dr. Celina Venegas Performed By: #### A BG #### [facility] [address] [address] [address] Celina Venegas FIO2 40.00 % Normal [facility] Comment on above: Performed By: #### M G, BNP, CMP #### [facility] [address] [place] [address] Dr. Celina Venegas Performed By: #### A BG #### [facility] Laboratory [address] [place] [address] Dr. Celina Venegas HCO3 (Bld) [Moles/Vol] 19.3 mmol/L Critically low 22.0-26. 0 [facility] Comment on above: Performed By: #### A BG #### [facility] [address] [place] [address] Dr. Celina Venegas LPM Normal [facility] Comment on above: Performed By: #### M G, BNP, CMP #### [facility] [address] [place] [address] Dr. Celina Venegas Performed By: #### A BG #### [facility] [address] [place] [address] Dr. Celina Venegas MINUTE VOLUME Normal [facility] Comment on above: Performed By: #### M G, BNP, CMP #### [facility] [address] [place] [address] Dr. Celina Venegas Performed By: #### A BG #### [facility] [address] [place] [address] Dr. Celina Venegas Oxygen (Bld) [Partial pressure] 97.4 mm[Hg] Normal 80.0-100.0 [facility] Comment on above: Performed By: #### A BG #### [facility] [address] [place] [address] Dr. Celina Venegas Oxygen saturation in Blood 96.1 % Normal 95.0-100.0 [facility] Comment on above: Performed By: #### A BG #### [facility] [address] [place] [address] Dr. Celina Venegas PCO2 50.2 mmHg Critically high 35.0-45.0 [facility] Comment on above: Performed By: #### A BG #### [facility] [address] [address] [address] Celina Venegas PEEP 5 [facility] Comment on above: Performed By: #### M G, BNP, CMP #### [facility] [address] [address] [address] Celina Venegas Performed By: #### A BG #### [facility] [address] [address] [address] Celina Venegas pH (Bld) 7.193 [pH] Critically low 7.350-7.450 [facility] Comment on above: Performed By: #### A BG #### [facility] [address] [address] [address] Celina Venegas PIP [facility] Comment on above: Performed By: #### M G, BNP, CMP #### [facility] [address] [address] [address] Celina Venegas Performed By: #### A BG #### [facility] [address] [address] [address] Celina Venegas PS [facility] Comment on above: Performed By: #### M G, BNP, CMP #### [facility] [address] [address] [address] Celina Venegas Performed By: #### A BG #### [facility] [address] [address] [address] Celina Venegas PUNCTURE SITE RR [facility] Comment on above: Performed By: #### M G, BNP, CMP #### [facility] [address] [address] [address] Celina Venegas Performed By: #### A BG #### [facility] [address] [place] [address] Dr. Celina Venegas RATE 16 bpm [facility] Comment on above: Performed By: #### M G, BNP, CMP #### [facility] [address] [address] [address] Celina Venegas Performed By: #### A BG #### [facility] [address] [place] [address] Dr. Celina Venegas VENT MODE A/C Normal [facility] Comment on above: Performed By: #### M G, BNP, CMP #### [facility] [address] [place] [address] Dr. Celina Venegas Performed By: #### A BG #### [facility] [address] [place] [address] Dr. Celina Venegas VT 400 ML Normal [facility] Comment on above: Performed By: #### M G, BNP, CMP #### [facility] [address] [place] [address] Dr. Celina Venegas Performed By: #### A BG #### [facility] [address] [place] [address] Dr. Celina Venegas BNPon 10-06-2022 Natriuretic peptide B (Bld) [Mass/Vol] 3590.0 pg/mL Critically high <=900.0 [facility] Comment on above: Performed By: #### C BC #### [facility] [address] [place] [address] Dr. Celina Venegas CBC AUTO DIFFon 10-06-2022 BASO # 0.1 103/ul Normal 0.0-0.1 [facility] Comment on above: Performed By: #### P REG #### [facility] [address] [place] [address] Dr. Celina Venegas Basophils/100 WBC (Bld) 0.4 % Normal 0.2-2.0 [facility] Comment on above: Performed By: #### P REG #### [facility] [address] [place] [address] Dr. Celina Venegas EO # 0.2 103/ul Normal 0.0-0.7 [facility] Comment on above: Performed By: #### P REG #### [facility] [address] [place] [address] Dr. Celina Venegas Eosinophils/100 WBC (Bld) 1.1 % Normal 0.9-7.0 [facility] Comment on above: Performed By: #### P REG #### [facility] [address] [address] [address] Celina Venegas Erythrocyte distribution width (RBC) [Ratio] 14.5 % Normal 11.0-15.0 [facility] Comment on above: Performed By: #### P REG #### [facility] [address] [address] [address] Celina Venegas Hematocrit (Bld) [Volume fraction] 38.1 % Normal 36.0-48.0 [facility] Comment on above: Performed By: #### P REG #### [facility] [address] [place] [address] Dr. Celina Venegas Hemoglobin (Bld) [Mass/Vol] 11.3 g/dL Critically low 12.0-16.0 [facility] Comment on above: Performed By: #### P REG #### [facility] [address] [place] [address] Dr. Celina Venegas IG # 0.21 10e3/ul Critically high 0.00-0.03 [facility] Comment on above: Performed By: #### P REG #### [facility] [address] [place] [address] Dr. Celina Venegas IG % 1.5 % Critically high 0.0-0.5 [facility] Comment on above: Performed By: #### P REG #### [facility] [address] [place] [address] Dr. Celina Venegas LYMPH # 3.3 103/ul Normal 1.2-3.8 [facility] Comment on above: Performed By: #### P REG #### [facility] [address] [place] [address] Dr. Celina Venegas Lymphocytes/100 WBC (Bld) 23.8 % Normal 20.5-60.0 [facility] Comment on above: Performed By: #### P REG #### [facility] [address] [place] [address] Dr. Celina Venegas MANUAL DIFF REQ NO Normal [facility] Comment on above: Performed By: #### P REG #### [facility] [address] [address] [address] Celina Venegas MCH (RBC) [Entitic mass] 24.9 pg Critically low 26.7-34 .0 [facility] Comment on above: Performed By: #### P REG #### [facility] [address] [place] [address] Dr. Celina Venegas MCHC (RBC) [Mass/Vol] 29.7 g/dL Critically low 29.9-35.2 [facility] Comment on above: Performed By: #### P REG #### [facility] [address] [place] [address] Dr. Celina Venegas MCV (RBC) [Entitic vol] 83.9 fL Normal 81.0-99.0 [facility] Comment on above: Performed By: #### P REG #### [facility] [address] [place] [address] Dr. Celina Venegas MONO # 0.5 103/ul Normal 0.3-0.8 [facility] Comment on above: Performed By: #### P REG #### [facility] [address] [place] [address] Dr. Celina Venegas Monocytes/100 WBC (Bld) 3.8 % Normal 1.7-12.0 [facility] Comment on above: Performed By: #### P REG #### [facility] [address] [place] [address] Dr. Celina Venegas NEUT # 9.6 103/ul Critically high 1.4-6.5 [facility] Comment on above: Performed By: #### P REG #### [facility] [address] [place] [address] Dr. Celina Venegas Neutrophils/100 WBC (Bld) 69.4 % Normal 43.0-75.0 [facility] Comment on above: Performed By: #### P REG #### [facility] [address] [place] [address] Dr. Celina Venegas Platelet mean volume (Bld) [Entitic vol] 10.4 fL Normal 9.5-13.5 [facility] Comment on above: Performed By: #### P REG #### [facility] [address] [place], [place] [address] Dr. Celina eVnegas PLT 409 103/ul Normal 150-450 [facility] Comment on above: Performed By: #### P REG #### [facility] [address] [address] [address] Celina Venegas RBC 4.54 106/ul Normal 4.20-5.40 [facility] Comment on above: Performed By: #### P REG #### [facility] [address] [place], [place] [address] Dr. Celina Venegas WBC 13.8 103/ul Critically high 4.0-11.0 [facility] Comment on above: Performed By: #### P REG #### [facility] [address] [address] [address] ABD/PELV W CONon [...] by: Ju RIVERA Date: 2022-10-06 21:52 Normal [facility] CT ABD/PELVIS WO [...] LISSA ARTEAGA Date: 2022-10-06 21:51 Normal [facility] CULTURE BLOODon 10-06-2022 Microscopic examination of blood, culture Culture Observations: NO GROWTH AT 5 DAYS. Normal [facility] Comment on above: Performed By: #### H STROPN #### [facility] [address] [place] [address] Dr. Celina Venegas Performed By: #### B [id number] #### [facility] [address] [place] [address] Dr. Celina Venegas Covid-19 PCR ([facility]on 09-13 SARS-CoV-2 (COVID-19) RNA ELVA+probe Ql (Unsp spec) Not detected Normal NOT DETECTED [facility] Comment on above: Performed By: #### P REG #### [facility] [address] [place] [address] Dr. Celina Venegas DRUG SCREEN RAPID (URINE)on 10-06-2022 AMP Negative Normal NEGATIVE [facility] Comment on above: Performed By: #### M G, BNP, CMP #### [facility] [address] [place] [address] Dr. Celina Venegas BAR Negative Normal NEGATIVE [facility] Comment on above: Performed By: #### M G, BNP, CMP #### [facility] [address] [place] [address] Dr. Celina Venegas BUP Negative Normal NEGATIVE [facility] Comment on above: Performed By: #### M G, BNP, CMP #### [facility] [address] [place] [address] Dr. Celina Venegas BZO Negative Normal NEGATIVE [facility] Comment on above: Performed By: #### M G, BNP, CMP #### [facility] [address] [place] [address] Dr. Celina Venegas BRAINDA Negative Normal NEGATIVE [facility] Comment on above: Performed By: #### M G, BNP, CMP #### [facility] [address] [place] [address] Dr. Celina Venegas CUT-OFFS SEE BELOW Normal [facility] Comment on above: [...] By: #### M G, BNP, CMP #### [facility] [address] [place] [address] Dr. Ceilna Venegas DRUG CUT HEADER DRUG CLASS TEST SYSTEM CUT-OFF CONCENTRATIONS ARE FOLLOWS: Normal [facility] Comment on above: Performed By: #### M G, BNP, CMP #### [facility] [address] [place] [address] Dr. Celina Venegas mAMP Negative Normal NEGATIVE [facility] Comment on above: Performed By: #### M G, BNP, CMP #### [facility] [address] [place] [address] Dr. Celina Venegas MTD Negative Normal NEGATIVE [facility] Comment on above: Performed By: #### M G, BNP, CMP #### [facility] [address] [place] [address] Dr. Celina Venegas OPI Negative Normal NEGATIVE [facility] Comment on above: Performed By: #### M G, BNP, CMP #### [facility] [address] [place] [address] Dr. Celina Venegas OXY Negative Normal NEGATIVE [facility] Comment on above: Performed By: #### M G, BNP, CMP #### [facility] [address] [place] [address] Dr. Celina Venegas PCP Negative Normal NEGATIVE [facility] Comment on above: Performed By: #### M G, BNP, CMP #### [facility] [address] [place] [address] Dr. Celina Venegas PPX Negative Normal NEGATIVE [facility] Comment on above: Performed By: #### M G, BNP, CMP #### [facility] [address] [place] [address] Dr. Celina Venegas TCA Negative Normal NEGATIVE [facility] Comment on above: Performed By: #### M G, BNP, CMP #### [facility] [address] [place] [address] Dr. Celina Venegas THC Positive Abnormal NEGATIVE [facility] Comment on above: Performed By: #### M G, BNP, CMP #### [facility] [address] [place] [address] Dr. Celina Venegas ETHANOL (BLD ALC)on 10-07-19 ALC NOTE NOTE: 80 mg/dl is the legal limit for a blood alcohol level Normal [facility] Comment on above: Performed By: #### B [id number] #### [facility] [address] [place] [address] Dr. Celina Venegas Ethanol [Mass/Vol] mg/dL Normal [facility] Comment on above: Performed By: #### B [id number] #### [facility] [address] [place] [address] Dr. Celina Venegas LACTATE/LACTIC ACIDon 2022 Lactate [Moles/Vol] 2.2 mmol/L Critically high 0.4-2.0 [facility] Comment on above: Performed By: #### B LDCX2 #### [facility] [address] [place] [address] Dr. Celina Venegas Lactate [Moles/Vol] 5.5 mmol/L Critically high 0.4-2.0 [facility] Comment on above: Performed By: #### M G, BNP, CMP #### [facility] [address] [place] [address] Dr. Celina Venegas LIVER PROFILEon 10-06-2022 Albumin [Mass/Vol] 2.8 g/dL Critically low 3.4-5.0 [facility] Comment on above: Performed By: #### M G, BNP, CMP #### [facility] [address] [address] [address] Celina Venegas Albumin/Globulin [Mass ratio] 0.6 {ratio} Normal [facility] Comment on above: Performed By: #### M G, BNP, CMP #### [facility] [address] [address] [address] Celina Venegas ALP [Catalytic activity/Vol] 218 U/L Critically high 46-116 [facility] Comment on above: Performed By: #### M G, BNP, CMP #### [facility] [address] [address] [address] Celina Venegas ALT [Catalytic activity/Vol] 22 U/L Normal 14-59 [facility] Comment on above: Performed By: #### M G, BNP, CMP #### [facility] [address] [address] [address] Celina Venegas AST [Catalytic activity/Vol] 27 U/L Normal 15-37 [facility] Comment on above: Performed By: #### M G, BNP, CMP #### [facility] [address] [place] [address] Dr. Celina Venegas BILI, CONJUGATED 0.1 mg/dL Normal 0.0-0.2 [facility] Comment on above: Performed By: #### M G, BNP, CMP #### [facility] [address] [address] [address] Celina Venegas Bilirubin [Mass/Vol] 0.2 mg/dL Normal 0.2-1.0 [facility] Comment on above: Performed By: #### M G, BNP, CMP #### [facility] [address] [address] [address] Celina Venegas Globulin (S) [Mass/Vol] 4.6 g/dL Normal [facility] Comment on above: Performed By: #### M G, BNP, CMP #### [facility] [address] [address] [address] Celina Venegas Protein [Mass/Vol] 7.4 g/dL Normal 6.4-8.2 [facility] Comment on above: Performed By: #### M G, BNP, CMP #### [facility] [address] [address] [address] Ceilna Venegas PROF CHEM 8 (BAS METB)on Anion gap [Moles/Vol] 20.6 mmol/L Normal [facility] Comment on above: Performed By: #### C BC #### [facility] [address] [address] [address] Celina Venegas Calcium [Mass/Vol] 8.4 mg/dL Critically low 8.5-10.1 [facility] Comment on above: Performed By: #### C BC #### [facility] [address] [address] [address] Celina Venegas Chloride [Moles/Vol] 107 mmol/L Normal 98-107 [facility] Comment on above: Performed By: #### C BC #### [facility] [address] [address] [address] Celina Venegas CO2 [Moles/Vol] 19.5 mmol/L Critically low 21.0-32.0 [facility] Comment on above: Performed By: #### C BC #### [facility] [address] [address] [address] Celina Venegas Creatinine [Mass/Vol] 1.39 mg/dL Critically high 0.55-1.02 [facility] Comment on above: Performed By: #### C BC #### [facility] [address] [address] [address] Celina Venegas EGFR-AF ERITREAN 48 mL/min/1.73m2 Critically low >=60 [facility] Comment on above: Performed By: #### C BC #### [facility] [address] [address] [address] Celina Venegas EGFR-NON AF ERITREAN 40 mL/min/1.73m2 Critically low >=60 [facility] Comment on above: Performed By: #### C BC #### [facility] [address] [address] [address] Celina Venegas Glucose [Mass/Vol] 322 mg/dL Critically high 74-106 [facility] Comment on above: Performed By: #### C BC #### [facility] [address] [address] [address] Celina Venegas Potassium [Moles/Vol] 3.1 mmol/L Critically low 3.5-5.1 [facility] Comment on above: Performed By: #### C BC #### [facility] [address] [address] [address] Celina Venegas Sodium [Moles/Vol] 144 mmol/L Normal 136-145 [facility] Comment on above: Performed By: #### C BC #### [facility] [address] [place] [address] Dr. Celina Venegas Urea nitrogen [Mass/Vol] 22.0 mg/dL Critically high 7.0-18 .0 [facility] Comment on above: Performed By: #### C BC #### [facility] [address] [address] [address] Celina Venegas Urea nitrogen/Creatinine [Mass ratio] 15.8 mg/mg Normal [facility] Comment on above: Performed By: #### C BC #### [facility] [address] [place] [address] Dr. Celina Venegas SALICYLATEon 10-06-2022 SALICYLATE <2.8 Normal <=19.9 [facility] Comment on above: Performed By: #### H STROPN #### [facility] [address] [place] [address] Dr. Celina Venegas SYMPTOMATIC COVID-19 ANTIGEN on 10-06-2022 EUA Statement SEE BELOW Normal [facility] Comment [...] By: #### M G, BNP, CMP #### [facility] [address] [place] [address] Dr. Celina Venegas SARS-CoV-2 (COVID-19) RNA ELVA+probe Ql (Unsp spec) Negative Normal NEGATIVE [facility] Comment on above: Performed By: #### M G, BNP, CMP #### [facility] [address] [place] [address] Dr. Celina Venegas TROPONIN, HIGH SENSITIVITYon 10-06-2022 HSTROP 288.7 pg/mL Critically high 4.0-51.3 [facility] Comment on above: Result Comment: CUT- OFF POINTS HAVE BEEN ESTABLISHED BASED ON THE FOURTH UNIVERSAL DEFINITIONS OF MYOCARDIAL INFARCTION. THE UPPER REFERENCE LIMIT (URL) OF TROPONIN, DEFINED THE 99TH PERCENTILE OF cTnI DISTRIBUTION IN A REFERENCE POPULATION, HAS BEEN CONFIRMED THE DECISION THRESHOLD FOR MT DIAGNOSIS. Performed By: #### H STROPN #### [facility] [address] [place] [address] Dr. Celina Venegas HSTROP 109.5 pg/mL Critically high 4.0-51.3 [facility] Comment on above: Result Comment: CUT- OFF POINTS HAVE BEEN ESTABLISHED BASED ON THE FOURTH UNIVERSAL DEFINITIONS OF MYOCARDIAL INFARCTION. THE UPPER REFERENCE LIMIT (URL) OF TROPONIN, DEFINED THE 99TH PERCENTILE OF cTnI DISTRIBUTION IN A REFERENCE POPULATION, HAS BEEN CONFIRMED THE DECISION THRESHOLD FOR MT DIAGNOSIS. Performed By: #### C BC #### [facility] [address] [place] [address] Dr. Celina Venegas XR CHEST 1 Von [...] by: GABRIELLA TESFAYE Date: 2022-10-06 18:46 Normal [facility] XR CHEST 1 V EXAM: [...] JUAN LUIS LOVE Date: 2022-10-06 18:22 Normal [facility] GGTon 09-22-2022 Gamma glutamyl transferase [Catalytic activity/Vol] 80 U/L Critically high 8-55 [facility] Comment on above: Performed By: #### H STROPN #### [facility] [address] [address] [address] Celina Venegas LIPID PROFILEon 09-22-2022 CHOL-HDL RATIO NORM SEE BELOW Normal [facility] Comment on above: Result Comment: 3.3 - 4.4 LOW RISK 4.4 - 7.1 AVERAGE RISK 7.1 - 11.0 MODERATE RISK >11.0 HIGH RISK Performed By: #### H STROPN #### [facility] [address] [address] [address] Celina Venegas Cholesterol [Mass/Vol] 162 mg/dL Normal <=200 [facility] Comment on above: Performed By: #### H STROPN #### [facility] [address] [place], [place] [address] Dr. Celina Venegas Cholesterol in HDL [Mass/Vol] 41 mg/dL Normal 40-60 [facility] Comment on above: Performed By: #### H STROPN #### [facility] [address] [address] [address] Celina Venegas Cholesterol in LDL [Mass/Vol] 90.8 mg/dL Normal [facility] Comment on above: Performed By: #### H STROPN #### [facility] [address] [address] [address] Celina Venegas Cholesterol.total/Choles terol in HDL [Mass ratio] 4.0 {ratio} Normal [facility] Comment on above: Performed By: #### H STROPN #### [facility] [address] [address] [address] Celina Venegas HDL NORMAL > or = 60 mg/dl - LOW CARDIOVASCULAR RISK <40 mg/dl - HIGH CARDIOVASCULAR RISK Normal [facility] Comment on above: Performed By: #### H STROPN #### [facility] [address] [place] [address] Dr. Celina Venegas LDL CALC NORMAL SEE BELOW Normal [facility] Comment on above: Result Comment: <100 mg/dl OPTIMAL 100 - 129 mg/dl NEAR OR ABOVE OPTIMAL 130 - 159 mg/dl BORDERLINE HIGH 160 - 189 mg/dl HIGH >190 mg/dl VERY HIGH Performed By: #### H STROPN #### [facility] [address] [address] [address] Celina Venegas Triglyceride [Mass/Vol] 151 mg/dL Critically high <=150 [facility] Comment on above: Performed By: #### H STROPN #### [facility] [address] [address] [address] Celina Venegas VLDL CALC 30.2 mg/dL Normal [facility] Comment on above: Performed By: #### H STROPN #### [facility] [address] [address] [address] Celina Venegas XR CHEST 2 Von 09-22-2022 XR CHEST 2 V EXAMINATION: XR CHEST 2 V HISTORY: Chest pain on breathing [...] by: THADDEUS LO Date: 2022-09-22 10:58 Normal [facility] STOOL CULTUREon 09-11-2022 Campylobacter Culture Final report Normal [facility] Comment on above: Performed By: #### M G, BNP, CMP #### [facility] [address] [address] [address] Celina Venegas E coli Shiga Toxin EIA Negative Normal Negative [facility] Comment on above: Performed By: #### M G, BNP, CMP #### [facility] [address] [address] [address] Celina Venegas Result 1 Comment Normal [facility] Comment on above: Result Comment: No S almonella or Shigella recovered. Performed By: #### M G, BNP, CMP #### [facility] [address] [address] [address] Celina Venegas Result Comment: No C ampylobacter species isolated. Salmonella/Shigella Screen Final report Normal [facility] Comment on above: Performed By: #### M G, BNP, CMP #### [facility] [address] [address] [address] Celina Venegas CBC AUTO DIFFon 09-08-2022 BASO # 0.0 103/ul Normal 0.0-0.1 [facility] Comment on above: Performed By: #### M G, BNP, CMP #### [facility] [address] [address] [address] Celina Venegas Basophils/100 WBC (Bld) 0.1 % Critically low 0.2-2.0 [facility] Comment on above: Performed By: #### M G, BNP, CMP #### [facility] [address] [address] [address] Celina Venegas EO # 0.3 103/ul Normal 0.0-0.7 [facility] Comment on above: Performed By: #### M G, BNP, CMP #### [facility] [address] [place] [address] Dr. Celina Venegas Eosinophils/100 WBC (Bld) 3.6 % Normal 0.9-7.0 [facility] Comment on above: Performed By: #### M G, BNP, CMP #### [facility] [address] [place] [address] Dr. Celina Venegas Erythrocyte distribution width (RBC) [Ratio] 13.9 % Normal 11.0-15.0 [facility] Comment on above: Performed By: #### M G, BNP, CMP #### [facility] [address] [place] [address] Dr. Celina Venegas Hematocrit (Bld) [Volume fraction] 28.9 % Critically low 36.0-48.0 [facility] Comment on above: Performed By: #### M G, BNP, CMP #### [facility] [address] [place] [address] Dr. Celina Venegas Hemoglobin (Bld) [Mass/Vol] 8.8 g/dL Critically low 12.0-16.0 [facility] Comment on above: Performed By: #### M G, BNP, CMP #### [facility] [address] [place] [address] Dr. Celina Venegas IG # 0.03 10e3/ul Normal 0.00-0.03 [facility] Comment on above: Performed By: #### M G, BNP, CMP #### [facility] [address] [place] [address] Dr. Celina Venegas IG % 0.4 % Normal 0.0-0.5 [facility] Comment on above: Performed By: #### M G, BNP, CMP #### [facility] [address] [place] [address] Dr. Celina Venegas LYMPH # 0.8 103/ul Critically low 1.2-3.8 [facility] Comment on above: Performed By: #### M G, BNP, CMP #### [facility] [address] [place] [address] Dr. Celina Venegas Lymphocytes/100 WBC (Bld) 10.5 % Critically low 20.5-60.0 [facility] Comment on above: Performed By: #### M G, BNP, CMP #### [facility] [address] [place] [address] Dr. Celina Venegas MANUAL DIFF REQ NO Normal [facility] Comment on above: Performed By: #### M G, BNP, CMP #### [facility] [address] [place] [address] Dr. Celina Venegas MCH (RBC) [Entitic mass] 24.9 pg Critically low 26.7-34 .0 [facility] Comment on above: Performed By: #### M G, BNP, CMP #### [facility] [address] [place] [address] Dr. Celina Venegas MCHC (RBC) [Mass/Vol] 30.4 g/dL Normal 29.9-35.2 [facility] Comment on above: Performed By: #### M G, BNP, CMP #### [facility] [address] [place] [address] Dr. Celina Venegas MCV (RBC) [Entitic vol] 81.9 fL Normal 81.0-99.0 [facility] Comment on above: Performed By: #### M G, BNP, CMP #### [facility] [address] [place] [address] Dr. Celina Venegas MONO # 0.6 103/ul Normal 0.3-0.8 [facility] Comment on above: Performed By: #### M G, BNP, CMP #### [facility] [address] [place] [address] Dr. Celina Venegas Monocytes/100 WBC (Bld) 7.8 % Normal 1.7-12.0 [facility] Comment on above: Performed By: #### M G, BNP, CMP #### [facility] [address] [place] [address] Dr. Celina Venegas NEUT # 5.5 103/ul Normal 1.4-6.5 [facility] Comment on above: Performed By: #### M G, BNP, CMP #### [facility] [address] [address] [address] Celina Venegas Neutrophils/100 WBC (Bld) 77.6 % Critically high 43.0-75.0 [facility] Comment on above: Performed By: #### M G, BNP, CMP #### [facility] [address] [place] [address] Dr. Celina Venegas Platelet mean volume (Bld) [Entitic vol] 10.8 fL Normal 9.5-13.5 [facility] Comment on above: Performed By: #### M G, BNP, CMP #### [facility] [address] [place] [address] Dr. Celina Venegas PLT 256 103/ul Normal 150-450 [facility] Comment on above: Performed By: #### M G, BNP, CMP #### [facility] [address] [place] [address] Dr. Celina Venegas RBC 3.53 106/ul Critically low 4.20-5.40 [facility] Comment on above: Performed By: #### M G, BNP, CMP #### [facility] [address] [place] [address] Dr. Celina Venegas WBC 7.1 103/ul Normal 4.0-11.0 [facility] Comment on above: Performed By: #### M G, BNP, CMP #### [facility] [address] [place] [address] Dr. Celina Venegas Consultation Noteon 09-09-19 23 Consultation Note [id number] #[id number] Normal [facility] MAGNESIUMon 09-08-2022 Magnesium [Mass/Vol] 1.1 mg/dL Critically low 1.8-2.4 [facility] Comment on above: Performed By: #### B LDCX1 #### [facility] [address] [place] [address] Dr. Celina Venegas PROF CHEM 8 (BAS METB)on Anion gap [Moles/Vol] 13.5 mmol/L Normal [facility] Comment on above: Performed By: #### B LDCX1 #### [facility] [address] [place] [address] Dr. Celina Venegas Calcium [Mass/Vol] 8.7 mg/dL Normal 8.5-10.1 [facility] Comment on above: Performed By: #### B LDCX1 #### [facility] [address] [place] [address] Dr. Celina Venegas Chloride [Moles/Vol] 108 mmol/L Critically high 98-107 [facility] Comment on above: Performed By: #### B LDCX1 #### [facility] [address] [place] [address] Dr. Celina Venegas CO2 [Moles/Vol] 22.5 mmol/L Normal 21.0-32.0 [facility] Comment on above: Performed By: #### B LDCX1 #### [facility] [address] [place] [address] Dr. Celina Venegas Creatinine [Mass/Vol] 0.65 mg/dL Normal 0.55-1.02 [facility] Comment on above: Performed By: #### B LDCX1 #### [facility] [address] [place] [address] Dr. Celina Venegas EGFR-AF ERITREAN >60 Normal >=60 [facility] Comment on above: Performed By: #### B LDCX1 #### [facility] [address] [place] [address] Dr. Celina Venegas EGFR-NON AF ERITREAN >60 Normal >=60 [facility] Comment on above: Performed By: #### B LDCX1 #### [facility] [address] [place] [address] Dr. Celina Venegas Glucose [Mass/Vol] 98 mg/dL Normal 74-106 [facility] Comment on above: Performed By: #### B LDCX1 #### [facility] [address] [place] [address] Dr. Celina Venegas Potassium [Moles/Vol] 3.0 mmol/L Critically low 3.5-5.1 [facility] Comment on above: Performed By: #### B LDCX1 #### [facility] [address] [place] [address] Dr. Celina Venegas Sodium [Moles/Vol] 141 mmol/L Normal 136-145 [facility] Comment on above: Performed By: #### B LDCX1 #### [facility] [address] [place] [address] Dr. Celina Venegas Urea nitrogen [Mass/Vol] 14.0 mg/dL Normal 7.0-18.0 [facility] Comment on above: Performed By: #### B LDCX1 #### [facility] [address] [place] [address] Dr. Celina Venegas Urea nitrogen/Creatinine [Mass ratio] 21.5 mg/mg Normal [facility] Comment on above: Performed By: #### B LDCX1 #### [facility] [address] [place] [address] Dr. Celina Venegas CBC AUTO DIFFon 09-07-2022 BASO # 0.0 103/ul Normal 0.0-0.1 [facility] Comment on above: Performed By: #### B LDCX2 #### [facility] [address] [place] [address] Dr. Celina Venegas Basophils/100 WBC (Bld) 0.2 % Normal 0.2-2.0 [facility] Comment on above: Performed By: #### B LDCX2 #### [facility] [address] [place] [address] Dr. Celina Venegas EO # 0.1 103/ul Normal 0.0-0.7 [facility] Comment on above: Performed By: #### B LDCX2 #### [facility] [address] [place] [address] Dr. Celina Venegas Eosinophils/100 WBC (Bld) 0.9 % Normal 0.9-7.0 [facility] Comment on above: Performed By: #### B LDCX2 #### [facility] [address] [place] [address] Dr. Celina Venegas Erythrocyte distribution width (RBC) [Ratio] 14.0 % Normal 11.0-15.0 [facility] Comment on above: Performed By: #### B LDCX2 #### [facility] [address] [place] [address] Dr. Celina Venegas Hematocrit (Bld) [Volume fraction] 31.7 % Critically low 36.0-48.0 [facility] Comment on above: Performed By: #### B LDCX2 #### [facility] [address] [place] [address] Dr. Celina Venegas Hemoglobin (Bld) [Mass/Vol] 9.2 g/dL Critically low 12.0-16.0 [facility] Comment on above: Performed By: #### B LDCX2 #### [facility] [address] [place] [address] Dr. Celina Venegas IG # 0.04 10e3/ul Critically high 0.00-0.03 [facility] Comment on above: Performed By: #### B LDCX2 #### [facility] [address] [place] [address] Dr. Celina Venegas IG % 0.4 % Normal 0.0-0.5 [facility] Comment on above: Performed By: #### B LDCX2 #### [facility] [address] [place] [address] Dr. Celina Venegas LYMPH # 0.8 103/ul Critically low 1.2-3.8 [facility] Comment on above: Performed By: #### B LDCX2 #### [facility] [address] [place] [address] Dr. Celina Venegas Lymphocytes/100 WBC (Bld) 8.7 % Critically low 20.5-60.0 [facility] Comment on above: Performed By: #### B LDCX2 #### [facility] [address] [place] [address] Dr. Celina Venegas MANUAL DIFF REQ NO Normal [facility] Comment on above: Performed By: #### B LDCX2 #### [facility] [address] [place] [address] Dr. Celina Venegas MCH (RBC) [Entitic mass] 25.7 pg Critically low 26.7-34 .0 [facility] Comment on above: Performed By: #### B LDCX2 #### [facility] [address] [place] [address] Dr. Celina Venegas MCHC (RBC) [Mass/Vol] 29.0 g/dL Critically low 29.9-35.2 [facility] Comment on above: Performed By: #### B LDCX2 #### [facility] [address] [place] [address] Dr. Celina Venegas MCV (RBC) [Entitic vol] 88.5 fL Normal 81.0-99.0 [facility] Comment on above: Performed By: #### B LDCX2 #### [facility] [address] [place] [address] Dr. Celina Venegas MONO # 0.5 103/ul Normal 0.3-0.8 [facility] Comment on above: Performed By: #### B LDCX2 #### [facility] [address] [place] [address] Dr. Celina Venegas Monocytes/100 WBC (Bld) 5.2 % Normal 1.7-12.0 [facility] Comment on above: Performed By: #### B LDCX2 #### [facility] [address] [place] [address] Dr. Celina Venegas NEUT # 7.9 103/ul Critically high 1.4-6.5 [facility] Comment on above: Performed By: #### B LDCX2 #### [facility] [address] [place] [address] Dr. Celina Venegas Neutrophils/100 WBC (Bld) 84.6 % Critically high 43.0-75.0 [facility] Comment on above: Performed By: #### B LDCX2 #### [facility] [address] [place] [address] Dr. Celina Venegas Platelet mean volume (Bld) [Entitic vol] 10.9 fL Normal 9.5-13.5 [facility] Comment on above: Performed By: #### B LDCX2 #### [facility] [address], [place] [address] Dr. Celina Venegas PLT 240 103/ul Normal 150-450 [facility] Comment on above: Performed By: #### B LDCX2 #### [facility] [address], [place] [address] Dr. Celina Venegas RBC 3.58 106/ul Critically low 4.20-5.40 [facility] Comment on above: Performed By: #### B LDCX2 #### [facility] [address], [place] [address] Dr. Celina Venegas WBC 9.3 103/ul Normal 4.0-11.0 [facility] Comment on above: Performed By: #### B LDCX2 #### [facility] [address] [place], [place] [address] ABD/PELV W CONon [...] by: THADDEUS LO Date: 2022-09-07 10:55 Normal [facility] MAGNESIUMon 09-07-2022 Magnesium [Mass/Vol] 1.6 mg/dL Critically low 1.8-2.4 [facility] Comment on above: Performed By: #### M G, BNP, CMP #### [facility] [address] [address] [address] Celina Venegas PROF CHEM 8 (BAS METB)on Anion gap [Moles/Vol] 11.6 mmol/L Normal [facility] Comment on above: Performed By: #### M G, BNP, CMP #### [facility] [address] [address] [address] Celina Venegas Calcium [Mass/Vol] 9.5 mg/dL Normal 8.5-10.1 [facility] Comment on above: Performed By: #### M G, BNP, CMP #### [facility] [address] [address] [address] Celina Venegas Chloride [Moles/Vol] 109 mmol/L Critically high 98-107 [facility] Comment on above: Performed By: #### M G, BNP, CMP #### [facility] [address] [address] [address] Celina Venegas CO2 [Moles/Vol] 23.2 mmol/L Normal 21.0-32.0 [facility] Comment on above: Performed By: #### M G, BNP, CMP #### [facility] [address] [address] [address] Celina Venegas Creatinine [Mass/Vol] 0.72 mg/dL Normal 0.55-1.02 [facility] Comment on above: Performed By: #### M G, BNP, CMP #### [facility] [address] [address] [address] Celina Venegas EGFR-AF ERITREAN >60 Normal >=60 [facility] Comment on above: Performed By: #### M G, BNP, CMP #### [facility] [address] [address] [address] Celina Venegas EGFR-NON AF ERITREAN >60 Normal >=60 [facility] Comment on above: Performed By: #### M G, BNP, CMP #### [facility] [address] [address] [address] Celina Venegas Glucose [Mass/Vol] 79 mg/dL Normal 74-106 [facility] Comment on above: Performed By: #### M G, BNP, CMP #### [facility] [address] [address] [address] Celina Venegas Potassium [Moles/Vol] 3.8 mmol/L Normal 3.5-5.1 [facility] Comment on above: Performed By: #### M G, BNP, CMP #### [facility] [address] [place] [address] Dr. Celina Venegas Sodium [Moles/Vol] 140 mmol/L Normal 136-145 [facility] Comment on above: Performed By: #### M G, BNP, CMP #### [facility] [address] [place] [address] Dr. Celina Venegas Urea nitrogen [Mass/Vol] 17.0 mg/dL Normal 7.0-18.0 [facility] Comment on above: Performed By: #### M G, BNP, CMP #### [facility] [address] [place] [address] Dr. Celina Venegas Urea nitrogen/Creatinine [Mass ratio] 23.6 mg/mg Normal [facility] Comment on above: Performed By: #### M G, BNP, CMP #### [facility] [address] [address] [address] Celina Venegas CBC AUTO DIFFon 09-06-2022 BASO # 0.0 103/ul Normal 0.0-0.1 [facility] Comment on above: Performed By: #### M G, BNP, CMP #### [facility] [address] [place] [address] Dr. Celina Venegas Basophils/100 WBC (Bld) 0.2 % Normal 0.2-2.0 [facility] Comment on above: Performed By: #### M G, BNP, CMP #### [facility] [address] [place] [address] Dr. Celina Venegas EO # 0.0 103/ul Normal 0.0-0.7 [facility] Comment on above: Performed By: #### M G, BNP, CMP #### [facility] [address] [place] [address] Dr. Celina Venegas Eosinophils/100 WBC (Bld) 0.2 % Critically low 0.9-7.0 [facility] Comment on above: Performed By: #### M G, BNP, CMP #### [facility] [address] [place] [address] Dr. Celina Venegas Erythrocyte distribution width (RBC) [Ratio] 13.9 % Normal 11.0-15.0 [facility] Comment on above: Performed By: #### M G, BNP, CMP #### [facility] [address] [place] [address] Dr. Cleina Venegas Hematocrit (Bld) [Volume fraction] 30.6 % Critically low 36.0-48.0 [facility] Comment on above: Performed By: #### M G, BNP, CMP #### [facility] [address] [place] [address] Dr. Celina Venegas Hemoglobin (Bld) [Mass/Vol] 9.2 g/dL Critically low 12.0-16.0 [facility] Comment on above: Performed By: #### M G, BNP, CMP #### [facility] [address] [place] [address] Dr. Celina Venegas IG # 0.07 10e3/ul Critically high 0.00-0.03 [facility] Comment on above: Performed By: #### M G, BNP, CMP #### [facility] [address] [place] [address] Dr. Celina Venegas IG % 0.6 % Critically high 0.0-0.5 [facility] Comment on above: Performed By: #### M G, BNP, CMP #### [facility] [address] [place] [address] Dr. Celina Venegas LYMPH # 0.7 103/ul Critically low 1.2-3.8 [facility] Comment on above: Performed By: #### M G, BNP, CMP #### [facility] [address] [place] [address] Dr. Celina Venegas Lymphocytes/100 WBC (Bld) 5.4 % Critically low 20.5-60.0 [facility] Comment on above: Performed By: #### M G, BNP, CMP #### [facility] [address] [place] [address] Dr. Celina Venegas MANUAL DIFF REQ NO Normal [facility] Comment on above: Performed By: #### M G, BNP, CMP #### [facility] [address] [place] [address] Dr. Celina Venegas MCH (RBC) [Entitic mass] 25.1 pg Critically low 26.7-34 .0 [facility] Comment on above: Performed By: #### M G, BNP, CMP #### [facility] [address] [place] [address] Dr. Celina Venegas MCHC (RBC) [Mass/Vol] 30.1 g/dL Normal 29.9-35.2 [facility] Comment on above: Performed By: #### M G, BNP, CMP #### [facility] [address] [place] [address] Dr. Celina Venegas MCV (RBC) [Entitic vol] 83.6 fL Normal 81.0-99.0 [facility] Comment on above: Performed By: #### M G, BNP, CMP #### [facility] [address] [place] [address] Dr. Celina Venegas MONO # 0.5 103/ul Normal 0.3-0.8 [facility] Comment on above: Performed By: #### M G, BNP, CMP #### [facility] [address] [address] [address] Celina Venegas Monocytes/100 WBC (Bld) 3.6 % Normal 1.7-12.0 [facility] Comment on above: Performed By: #### M G, BNP, CMP #### [facility] [address] [place] [address] Dr. Celina Venegas NEUT # 11.4 103/ul Critically high 1.4-6.5 [facility] Comment on above: Performed By: #### M G, BNP, CMP #### [facility] [address] [place] [address] Dr. Celina Venegas Neutrophils/100 WBC (Bld) 90.0 % Critically high 43.0-75.0 [facility] Comment on above: Performed By: #### M G, BNP, CMP #### [facility] [address] [place] [address] Dr. Celina Venegas Platelet mean volume (Bld) [Entitic vol] 10.5 fL Normal 9.5-13.5 [facility] Comment on above: Performed By: #### M G, BNP, CMP #### [facility] [address] [place] [address] Dr. Celina Veneags PLT 281 103/ul Normal 150-450 [facility] Comment on above: Performed By: #### M G, BNP, CMP #### [facility] [address] [place] [address] Dr. Celina Venegas RBC 3.66 106/ul Critically low 4.20-5.40 [facility] Comment on above: Performed By: #### M G, BNP, CMP #### [facility] [address] [place] [address] Dr. Celina Venegas WBC 12.7 103/ul Critically high 4.0-11.0 [facility] Comment on above: Performed By: #### M G, BNP, CMP #### [facility] [address] [place] [address] Dr. Celina Venegas LIVER PROFILEon 09-06-2022 Albumin [Mass/Vol] 2.4 g/dL Critically low 3.4-5.0 [facility] Comment on above: Performed By: #### M G, BNP, CMP #### [facility] [address] [address] [address] Celina Venegas Albumin/Globulin [Mass ratio] 0.6 {ratio} Normal [facility] Comment on above: Performed By: #### M G, BNP, CMP #### [facility] [address] [address] [address] Celina Venegas ALP [Catalytic activity/Vol] 118 U/L Critically high 46-116 [facility] Comment on above: Performed By: #### M G, BNP, CMP #### [facility] [address] [address] [address] Celina Venegas ALT [Catalytic activity/Vol] 16 U/L Normal 14-59 [facility] Comment on above: Performed By: #### M G, BNP, CMP #### [facility] [address] [address] [address] Celina Venegas AST [Catalytic activity/Vol] 11 U/L Critically low 15-37 [facility] Comment on above: Performed By: #### M G, BNP, CMP #### [facility] [address] [address] [address] Celina Venegas BILI, CONJUGATED 0.6 mg/dL Critically high 0.0-0.2 [facility] Comment on above: Performed By: #### M G, BNP, CMP #### [facility] [address] [address] [address] Celina Venegas Bilirubin [Mass/Vol] 1.2 mg/dL Critically high 0.2-1.0 [facility] Comment on above: Performed By: #### M G, BNP, CMP #### [facility] [address] [address] [address] Celina Venegas Globulin (S) [Mass/Vol] 3.7 g/dL Normal [facility] Comment on above: Performed By: #### M G, BNP, CMP #### [facility] [address] [place] [address] Dr. Celina Venegas Protein [Mass/Vol] 6.1 g/dL Critically low 6.4-8.2 [facility] Comment on above: Performed By: #### M G, BNP, CMP #### [facility] [address] [address] [address] Celina Venegas MAGNESIUMon 09-06-2022 Magnesium [Mass/Vol] 1.4 mg/dL Critically low 1.8-2.4 [facility] Comment on above: Performed By: #### M G, BNP, CMP #### [facility] [address] [place] [address] Dr. Celina Venegas PROF CHEM 8 (BAS METB)on Anion gap [Moles/Vol] 12.5 mmol/L Normal [facility] Comment on above: Performed By: #### M G, BNP, CMP #### [facility] [address] [place] [address] Dr. Celina Venegas Calcium [Mass/Vol] 9.3 mg/dL Normal 8.5-10.1 [facility] Comment on above: Performed By: #### M G, BNP, CMP #### [facility] [address] [place] [address] Dr. Celina Venegas Chloride [Moles/Vol] 105 mmol/L Normal 98-107 [facility] Comment on above: Performed By: #### M G, BNP, CMP #### [facility] [address] [place] [address] Dr. Celina Venegas CO2 [Moles/Vol] 23.6 mmol/L Normal 21.0-32.0 [facility] Comment on above: Performed By: #### M G, BNP, CMP #### [facility] [address] [place] [address] Dr. Celina Venegas Creatinine [Mass/Vol] 0.80 mg/dL Normal 0.55-1.02 [facility] Comment on above: Performed By: #### M G, BNP, CMP #### [facility] [address] [place] [address] Dr. Celina Venegas EGFR-AF ERITREAN >60 Normal >=60 [facility] Comment on above: Performed By: #### M G, BNP, CMP #### [facility] [address] [address] [address] Celina Venegas EGFR-NON AF ERITREAN >60 Normal >=60 [facility] Comment on above: Performed By: #### M G, BNP, CMP #### [facility] [address] [address] [address] Celina Venegas Glucose [Mass/Vol] 106 mg/dL Normal 74-106 [facility] Comment on above: Performed By: #### M G, BNP, CMP #### [facility] [address] [address] [address] Celina Venegas Potassium [Moles/Vol] 3.1 mmol/L Critically low 3.5-5.1 [facility] Comment on above: Performed By: #### M G, BNP, CMP #### [facility] [address] [address] [address] Celina Venegas Sodium [Moles/Vol] 138 mmol/L Normal 136-145 [facility] Comment on above: Performed By: #### M G, BNP, CMP #### [facility] [address] [address] [address] Celina Venegas Urea nitrogen [Mass/Vol] 19.0 mg/dL Critically high 7.0-18 .0 [facility] Comment on above: Performed By: #### M G, BNP, CMP #### [facility] [address] [place] [address] Dr. Celina Venegas Urea nitrogen/Creatinine [Mass ratio] 23.8 mg/mg Normal [facility] Comment on above: Performed By: #### M G, BNP, CMP #### [facility] [address] [place] [address] Dr. Celina Venegas XR ABD FLAT UP_PA [...] THADDEUS LO Date: 2022-09-06 17:36 Normal [facility] CBC AUTO DIFFon 09-05-2022 BASO # 0.0 103/ul Normal 0.0-0.1 [facility] Comment on above: Performed By: #### C BC #### [facility] [address] [place] [address] Dr. Celina Venegas Basophils/100 WBC (Bld) 0.1 % Critically low 0.2-2.0 [facility] Comment on above: Performed By: #### C BC #### [facility] [address] [place] [address] Dr. Celina Venegas EO # 0.0 103/ul Normal 0.0-0.7 [facility] Comment on above: Performed By: #### C BC #### [facility] [address] [place] [address] Dr. Celina Venegas Eosinophils/100 WBC (Bld) 0.0 % Critically low 0.9-7.0 [facility] Comment on above: Performed By: #### C BC #### [facility] [address] [place] [address] Dr. Celina Venegas Erythrocyte distribution width (RBC) [Ratio] 13.8 % Normal 11.0-15.0 [facility] Comment on above: Performed By: #### C BC #### [facility] [address] [place] [address] Dr. Celina Venegas Hematocrit (Bld) [Volume fraction] 35.8 % Critically low 36.0-48.0 [facility] Comment on above: Performed By: #### C BC #### [facility] [address] [place] [address] Dr. Celina Venegas Hemoglobin (Bld) [Mass/Vol] 11.1 g/dL Critically low 12.0-16.0 [facility] Comment on above: Performed By: #### C BC #### [facility] [address] [place] [address] Dr. Celina Venegas IG # 0.08 10e3/ul Critically high 0.00-0.03 [facility] Comment on above: Performed By: #### C BC #### [facility] [address] [place] [address] Dr. Celina Venegas IG % 0.4 % Normal 0.0-0.5 [facility] Comment on above: Performed By: #### C BC #### [facility] [address] [place] [address] Dr. Celina Venegas LYMPH # 0.6 103/ul Critically low 1.2-3.8 [facility] Comment on above: Performed By: #### C BC #### [facility] [address] [place] [address] Dr. Celina Venegas Lymphocytes/100 WBC (Bld) 3.4 % Critically low 20.5-60.0 [facility] Comment on above: Performed By: #### C BC #### [facility] [address] [place] [address] Dr. Celina Venegas MANUAL DIFF REQ NO Normal [facility] Comment on above: Performed By: #### C BC #### [facility] [address] [place] [address] Dr. Celina Venegas MCH (RBC) [Entitic mass] 25.5 pg Critically low 26.7-34 .0 [facility] Comment on above: Performed By: #### C BC #### [facility] [address] [place] [address] Dr. Celina Venegas MCHC (RBC) [Mass/Vol] 31.0 g/dL Normal 29.9-35.2 [facility] Comment on above: Performed By: #### C BC #### [facility] [address] [place] [address] Dr. Celina Venegas MCV (RBC) [Entitic vol] 82.1 fL Normal 81.0-99.0 [facility] Comment on above: Performed By: #### C BC #### [facility] [address] [place] [address] Dr. Celina Venegas MONO # 0.5 103/ul Normal 0.3-0.8 [facility] Comment on above: Performed By: #### C BC #### [facility] [address] [place] [address] Dr. Celina Venegas Monocytes/100 WBC (Bld) 2.9 % Normal 1.7-12.0 [facility] Comment on above: Performed By: #### C BC #### [facility] [address] [place] [address] Dr. Celina Venegas NEUT # 17.3 103/ul Critically high 1.4-6.5 [facility] Comment on above: Performed By: #### C BC #### [facility] [address] [place] [address] Dr. Celina Venegas Neutrophils/100 WBC (Bld) 93.2 % Critically high 43.0-75.0 [facility] Comment on above: Performed By: #### C BC #### [facility] [address] [place] [address] Dr. Celina Venegas Platelet mean volume (Bld) [Entitic vol] 10.1 fL Normal 9.5-13.5 [facility] Comment on above: Performed By: #### C BC #### [facility] [address] [place] [address] Dr. Celina Venegas PLT 367 103/ul Normal 150-450 [facility] Comment on above: Performed By: #### C BC #### [facility] [address] [place] [address] Dr. Celina Venegas RBC 4.36 106/ul Normal 4.20-5.40 [facility] Comment on above: Performed By: #### C BC #### [facility] [address] [place] [address] Dr. Celina Venegas WBC 18.6 103/ul Critically high 4.0-11.0 [facility] Comment on above: Performed By: #### C BC #### [facility] [address] [address] [address] Celina Venegas LIVER PROFILEon 09-05-2022 Albumin [Mass/Vol] 3.0 g/dL Critically low 3.4-5.0 [facility] Comment on above: Performed By: #### H STROPN #### [facility] [address] [address] [address] Celina Venegas Albumin/Globulin [Mass ratio] 0.7 {ratio} Normal [facility] Comment on above: Performed By: #### H STROPN #### [facility] [address] [address] [address] Celina Venegas ALP [Catalytic activity/Vol] 132 U/L Critically high 46-116 [facility] Comment on above: Performed By: #### H STROPN #### [facility] [address] [place] [address] Dr. Celina Venegas ALT [Catalytic activity/Vol] 20 U/L Normal 14-59 [facility] Comment on above: Performed By: #### H STROPN #### [facility] [address] [place] [address] Dr. Celina Venegas AST [Catalytic activity/Vol] 15 U/L Normal 15-37 [facility] Comment on above: Performed By: #### H STROPN #### [facility] [address] [place] [address] Dr. Celina Venegas BILI, CONJUGATED 0.7 mg/dL Critically high 0.0-0.2 [facility] Comment on above: Performed By: #### H STROPN #### [facility] [address] [place] [address] Dr. Celina Venegas Bilirubin [Mass/Vol] 1.4 mg/dL Critically high 0.2-1.0 [facility] Comment on above: Performed By: #### H STROPN #### [facility] [address] [address] [address] Cleina Venegas Globulin (S) [Mass/Vol] 4.1 g/dL Normal [facility] Comment on above: Performed By: #### H STROPN #### [facility] [address] [address] [address] Celina Venegas Protein [Mass/Vol] 7.1 g/dL Normal 6.4-8.2 [facility] Comment on above: Performed By: #### H STROPN #### [facility] [address] [address] [address] Celina Venegas MAGNESIUMon 09-05-2022 Magnesium [Mass/Vol] 1.5 mg/dL Critically low 1.8-2.4 [facility] Comment on above: Performed By: #### C BC #### [facility] [address] [address] [address] Celina Venegas MRI ABDOMEN WO CONon [...] THADDEUS LO Date: 2022-09-05 13:29 Normal [facility] PROF CHEM 8 (BAS METB)on Anion gap [Moles/Vol] 13.5 mmol/L Normal [facility] Comment on above: Performed By: #### C BC #### [facility] [address] [address] [address] Celina Venegas Calcium [Mass/Vol] 8.8 mg/dL Normal 8.5-10.1 [facility] Comment on above: Performed By: #### C BC #### [facility] [address] [address] [address] Celina Venegas Chloride [Moles/Vol] 106 mmol/L Normal 98-107 [facility] Comment on above: Performed By: #### C BC #### [facility] [address] [address] [address] Celina Venegas CO2 [Moles/Vol] 24.0 mmol/L Normal 21.0-32.0 [facility] Comment on above: Performed By: #### C BC #### [facility] [address] [address] [address] Celina Venegas Creatinine [Mass/Vol] 1.31 mg/dL Critically high 0.55-1.02 [facility] Comment on above: Performed By: #### C BC #### [facility] [address] [address] [address] Celina Venegas EGFR-AF ERITREAN 51 mL/min/1.73m2 Critically low >=60 [facility] Comment on above: Performed By: #### C BC #### [facility] [address] [address] [address] Celina Venegas EGFR-NON AF ERITREAN 42 mL/min/1.73m2 Critically low >=60 [facility] Comment on above: Performed By: #### C BC #### [facility] [address] [address] [address] Celina Venegas Glucose [Mass/Vol] 127 mg/dL Critically high 74-106 [facility] Comment on above: Performed By: #### C BC #### [facility] [address] [address] [address] Celina Venegas Potassium [Moles/Vol] 3.5 mmol/L Normal 3.5-5.1 [facility] Comment on above: Performed By: #### C BC #### [facility] [address] [address] [address] Celina Venegas Sodium [Moles/Vol] 140 mmol/L Normal 136-145 [facility] Comment on above: Performed By: #### C BC #### [facility] [address] [address] [address] Celina Venegas Urea nitrogen [Mass/Vol] 40.0 mg/dL Critically high 7.0-18 .0 [facility] Comment on above: Performed By: #### C BC #### [facility] [address] [place] [address] Dr. Celina Venegas Urea nitrogen/Creatinine [Mass ratio] 30.5 mg/mg Normal [facility] Comment on above: Performed By: #### C BC #### [facility] [address] [place] [address] Dr. Celina Venegas TROPONIN, HIGH SENSITIVITYon 09-05-2022 HSTROP 48.5 pg/mL Normal 4.0-51.3 [facility] Comment on above: Result Comment: CUT- OFF POINTS HAVE BEEN ESTABLISHED BASED ON THE FOURTH UNIVERSAL DEFINITIONS OF MYOCARDIAL INFARCTION. THE UPPER REFERENCE LIMIT (URL) OF TROPONIN, DEFINED THE 99TH PERCENTILE OF cTnI DISTRIBUTION IN A REFERENCE POPULATION, HAS BEEN CONFIRMED THE DECISION THRESHOLD FOR MT DIAGNOSIS. Performed By: #### B LDCX2 #### [facility] [address] [place] [address] Dr. Celina Venegas AMYLASEon 09-04-2022 Amylase [Catalytic activity/Vol] 65 U/L Normal 25-115 [facility] Comment on above: Performed By: #### M G, BNP, CMP #### [facility] [address] [place] [address] Dr. Celina Venegas CBC AUTO DIFFon 09-04-2022 BASO # 0.0 103/ul Normal 0.0-0.1 [facility] Comment on above: Performed By: #### B LDCX2 #### [facility] [address] [place] [address] Dr. Celina Venegas Basophils/100 WBC (Bld) 0.2 % Normal 0.2-2.0 [facility] Comment on above: Performed By: #### B LDCX2 #### [facility] [address] [place] [address] Dr. Celina Venegas EO # 0.0 103/ul Normal 0.0-0.7 [facility] Comment on above: Performed By: #### B LDCX2 #### [facility] [address] [address] [address] Celina Venegas Eosinophils/100 WBC (Bld) 0.2 % Critically low 0.9-7.0 [facility] Comment on above: Performed By: #### B LDCX2 #### [facility] [address] [place] [address] Dr. Celina Venegas Erythrocyte distribution width (RBC) [Ratio] 13.7 % Normal 11.0-15.0 [facility] Comment on above: Performed By: #### B LDCX2 #### [facility] [address] [place] [address] Dr. Celina Venegas Hematocrit (Bld) [Volume fraction] 41.7 % Normal 36.0-48.0 [facility] Comment on above: Performed By: #### B LDCX2 #### [facility] [address] [place] [address] Dr. Celina Venegas Hemoglobin (Bld) [Mass/Vol] 13.3 g/dL Normal 12.0-16.0 [facility] Comment on above: Performed By: #### B LDCX2 #### [facility] [address] [place] [address] Dr. Celina Venegas IG # 0.12 10e3/ul Critically high 0.00-0.03 [facility] Comment on above: Performed By: #### B LDCX2 #### [facility] [address] [place] [address] Dr. Celina Venegas IG % 0.6 % Critically high 0.0-0.5 [facility] Comment on above: Performed By: #### B LDCX2 #### [facility] [address] [place] [address] Dr. Celina Venegas LYMPH # 1.2 103/ul Normal 1.2-3.8 [facility] Comment on above: Performed By: #### B LDCX2 #### [facility] [address] [place] [address] Dr. Celina Venegas Lymphocytes/100 WBC (Bld) 5.7 % Critically low 20.5-60.0 [facility] Comment on above: Performed By: #### B LDCX2 #### [facility] [address] [place] [address] Dr. Celina Venegas MANUAL DIFF REQ NO Normal [facility] Comment on above: Performed By: #### B LDCX2 #### [facility] [address] [place] [address] Dr. Celina Venegas MCH (RBC) [Entitic mass] 25.3 pg Critically low 26.7-34 .0 [facility] Comment on above: Performed By: #### B LDCX2 #### [facility] [address] [place] [address] Dr. Celina Venegas MCHC (RBC) [Mass/Vol] 31.9 g/dL Normal 29.9-35.2 [facility] Comment on above: Performed By: #### B LDCX2 #### [facility] [address] [place] [address] Dr. Celina Venegas MCV (RBC) [Entitic vol] 79.4 fL Critically low 81.0-99. 0 [facility] Comment on above: Performed By: #### B LDCX2 #### [facility] [address] [place] [address] Dr. Celina Venegas MONO # 1.0 103/ul Critically high 0.3-0.8 [facility] Comment on above: Performed By: #### B LDCX2 #### [facility] [address] [place] [address] Dr. Celina Venegas Monocytes/100 WBC (Bld) 4.5 % Normal 1.7-12.0 [facility] Comment on above: Performed By: #### B LDCX2 #### [facility] [address] [place] [address] Dr. Celina Venegas NEUT # 18.8 103/ul Critically high 1.4-6.5 [facility] Comment on above: Performed By: #### B LDCX2 #### [facility] [address] [place] [address] Dr. Celina Venegas Neutrophils/100 WBC (Bld) 88.8 % Critically high 43.0-75.0 [facility] Comment on above: Performed By: #### B LDCX2 #### [facility] [address] [address] [address] Celina Venegas Platelet mean volume (Bld) [Entitic vol] 10.0 fL Normal 9.5-13.5 [facility] Comment on above: Performed By: #### B LDCX2 #### [facility] [address] [address] [address] Celina Venegas PLT 563 103/ul Critically high 150-450 [facility] Comment on above: Performed By: #### B LDCX2 #### [facility] [address] [place] [address] Dr. Celina Venegas RBC 5.25 106/ul Normal 4.20-5.40 [facility] Comment on above: Performed By: #### B LDCX2 #### [facility] [address] [place] [address] Dr. Celina Venegas WBC 21.2 103/ul Critically high 4.0-11.0 [facility] Comment on above: Performed By: #### B LDCX2 #### [facility] [address] [place] [address] ABD/PELV W CONon [...] technique. HISTORY: GENERALIZED ABDOMINAL PAIN COMPARISON: 08/20/2022 __ FINDINGS: Lower chest: The lower lungs are [...] abscess. Abdominal wall: Unremarkable without acute abnormality. IMPRESSION: 1. Postoperative changes in the right lower quadrant, related to recent appendectomy. There is a small fluid and gas loculation within the right hemipelvis, suspicious for a small developing abscess. 2. Mild increasing dilatation of the biliary tree without gross obstructing stone or mass. Consider further evaluation with MRCP. Electronically authenticated by: RAJ EDGAR Date: 2022-09-04 21:17 Normal [facility] CULTURE BLOODon 09-04-2022 Microscopic examination of blood, culture Culture Observations: NO GROWTH AT 5 DAYS. Normal [facility] Comment on above: Performed By: #### B LDCX2 #### [facility] [address] [address] [address] Celina Venegas Performed By: #### H STROPN #### [facility] [address] [address] [address] Celina Venegas ER URINE PROFILEon 3 Bilirubin Ql (U) Negative Normal NEGATIVE [facility] Comment on above: Performed By: #### H STROPN #### [facility] [address] [address] [address] Celina Vneegas Clarity (U) CLEAR Normal CLEAR [facility] Comment on above: Performed By: #### H STROPN #### [facility] [address] [address] [address] Celina Venegas Color (U) LT. YELLOW Normal YELLOW [facility] Comment on above: Performed By: #### H STROPN #### [facility] [address] [place] [address] Dr. Celina Venegas ERUAHElif A micrscopic examination will be performed if indicated. Normal [facility] Comment on above: Performed By: #### H STROPN #### [facility] [address] [place] [address] Dr. Celina Venegas Glucose Ql (U) Negative Normal NEGATIVE [facility] Comment on above: Performed By: #### H STROPN #### [facility] [address] [place] [address] Dr. Celina Venegas Hemoglobin Ql (U) Negative Normal NEGATIVE [facility] Comment on above: Performed By: #### H STROPN #### [facility] [address] [place] [address] Dr. Celina Venegas Ketones Ql (U) TRACE Abnormal NEGATIVE [facility] Comment on above: Performed By: #### H STROPN #### [facility] [address] [place] [address] Dr. eClina Venegas LEUKOCYTES Negative Normal NEGATIVE [facility] Comment on above: Performed By: #### H STROPN #### [facility] [address] [place] [address] Dr. Celina Venegas Nitrite Ql (U) Negative Normal NEGATIVE [facility] Comment on above: Performed By: #### H STROPN #### [facility] [address] [place] [address] Dr. Celina Venegas pH (U) 6.0 [pH] Normal 5-9 [facility] Comment on above: Performed By: #### H STROPN #### [facility] [address] [place] [address] Dr. Celina Venegas SPEC GRAVITY <=1.005 Abnormal 1.005-<=1.02 5 [facility] Comment on above: Performed By: #### H STROPN #### [facility] [address] [place] [address] Dr. Celina Venegas UA PROTEIN TRACE Normal NEGATIVE/ TRACE [facility] Comment on above: Performed By: #### H STROPN #### [facility] [address] [address] [address] Celina Venegas UR MICRO IND NOT INDICATED Normal [facility] Comment on above: Performed By: #### H STROPN #### [facility] [address] [place] [address] Dr. Celina Venegas Urobilinogen Qn (U) 0.2 {Pamela'U}/dL Normal 0.2 - 1. 0 [facility] Comment on above: Performed By: #### H STROPN #### [facility] [address] [place] [address] Dr. Celina Venegas LACTATE/LACTIC ACIDon 2022 Lactate [Moles/Vol] 1.4 mmol/L Normal 0.4-2.0 [facility] Comment on above: Performed By: #### B LDCX2 #### [facility] [address] [place] [address] Dr. Celina Venegas LIPASEon 09-04-2022 Lipase [Catalytic activity/Vol] 194.0 U/L Normal 73.0-393.0 [facility] Comment on above: Performed By: #### M G, BNP, CMP #### [facility] [address] [place] [address] Dr. Celina Venegas PREG HCG QUALon 09-04-2022 , QUAL Negative Normal NEGATIVE The [facility] Comment on above: Performed By: #### P REG #### [facility] [address] [place] [address] Dr. Celina Venegas PROF 14(COMP METB)on 023 Albumin [Mass/Vol] 3.6 g/dL Normal 3.4-5.0 [facility] Comment on above: Performed By: #### M G, BNP, CMP #### [facility] [address] [place] [address] Dr. Celina Venegas Albumin/Globulin [Mass ratio] 0.8 {ratio} Normal [facility] Comment on above: Performed By: #### M G, BNP, CMP #### [facility] [address] [address] [address] Celina Venegas ALP [Catalytic activity/Vol] 175 U/L Critically high 46-116 [facility] Comment on above: Performed By: #### M G, BNP, CMP #### [facility] [address] [address] [address] Celina Venegas ALT [Catalytic activity/Vol] 22 U/L Normal 14-59 [facility] Comment on above: Performed By: #### M G, BNP, CMP #### [facility] [address] [place] [address] Dr. Celina Venegas Anion gap [Moles/Vol] 15.8 mmol/L Normal [facility] Comment on above: Performed By: #### M G, BNP, CMP #### [facility] [address] [place] [address] Dr. Celina Venegas AST [Catalytic activity/Vol] 16 U/L Normal 15-37 [facility] Comment on above: Performed By: #### M G, BNP, CMP #### [facility] [address] [place] [address] Dr. Celina Venegas Bilirubin [Mass/Vol] 0.7 mg/dL Normal 0.2-1.0 [facility] Comment on above: Performed By: #### M G, BNP, CMP #### [facility] [address] [place] [address] Dr. Celina Venegas Calcium [Mass/Vol] 9.2 mg/dL Normal 8.5-10.1 [facility] Comment on above: Performed By: #### M G, BNP, CMP #### [facility] [address] [place] [address] Dr. Celina Venegas Chloride [Moles/Vol] 99 mmol/L Normal 98-107 [facility] Comment on above: Performed By: #### M G, BNP, CMP #### [facility] [address] [place] [address] Dr. Celina Venegas CO2 [Moles/Vol] 25.1 mmol/L Normal 21.0-32.0 [facility] Comment on above: Performed By: #### M G, BNP, CMP #### [facility] [address] [place] [address] Dr. Celina Venegas Creatinine [Mass/Vol] 1.90 mg/dL Critically high 0.55-1.02 [facility] Comment on above: Performed By: #### M G, BNP, CMP #### [facility] [address] [place] [address] Dr. Celina Venegas EGFR-AF ERITREAN 34 mL/min/1.73m2 Critically low >=60 [facility] Comment on above: Performed By: #### M G, BNP, CMP #### [facility] [address] [place] [address] Dr. Celina Venegas EGFR-NON AF ERITREAN 28 mL/min/1.73m2 Critically low >=60 [facility] Comment on above: Performed By: #### M G, BNP, CMP #### [facility] [address] [place] [address] Dr. Celina Venegas Globulin (S) [Mass/Vol] 4.4 g/dL Normal [facility] Comment on above: Performed By: #### M G, BNP, CMP #### [facility] [address] [place] [address] Dr. Celina Venegas Glucose [Mass/Vol] 139 mg/dL Critically high 74-106 [facility] Comment on above: Performed By: #### M G, BNP, CMP #### [facility] [address] [place] [address] Dr. Celina Venegas Potassium [Moles/Vol] 2.8 mmol/L Critically low 3.5-5.1 [facility] Comment on above: Performed By: #### M G, BNP, CMP #### [facility] [address] [place] [address] Dr. Celina Venegas Protein [Mass/Vol] 8.0 g/dL Normal 6.4-8.2 [facility] Comment on above: Performed By: #### M G, BNP, CMP #### [facility] [address] [place], [place] [address] Dr. Celina Venegas Sodium [Moles/Vol] 136 mmol/L Normal 136-145 [facility] Comment on above: Performed By: #### M G, BNP, CMP #### [facility] [address] [address] [address] Celina Venegas Urea nitrogen [Mass/Vol] 49.0 mg/dL Critically high 7.0-18 .0 [facility] Comment on above: Performed By: #### M G, BNP, CMP #### [facility] [address] [address] [address] Celina Venegas Urea nitrogen/Creatinine [Mass ratio] 25.8 mg/mg Normal [facility] Comment on above: Performed By: #### M G, BNP, CMP #### [facility] [address] [address] [address] Celina Venegas TROPONIN, HIGH SENSITIVITYon 09-04-2022 HSTROP 63.4 pg/mL Critically high 4.0-51.3 [facility] Comment on above: Result Comment: CUT- OFF POINTS HAVE BEEN ESTABLISHED BASED ON THE FOURTH UNIVERSAL DEFINITIONS OF MYOCARDIAL INFARCTION. THE UPPER REFERENCE LIMIT (URL) OF TROPONIN, DEFINED THE 99TH PERCENTILE OF cTnI DISTRIBUTION IN A REFERENCE POPULATION, HAS BEEN CONFIRMED THE DECISION THRESHOLD FOR MT DIAGNOSIS. Performed By: #### B [id number] #### [facility] [address] [address] [address] Celina Venegas XR CHEST 1 Von 09-04-2022 XR CHEST 1 V EXAMINATION: XR CHEST 1 V HISTORY: Abdominal pain on and off since Monday COMPARISON: Chest x-rays 03/04/2010 TECHNIQUE: Portable chest FINDINGS: The lung parenchyma is free of consolidation or infiltrate. No pneumothorax or pleural effusion. The cardiac, mediastinal and hilar contours are normal. The visualized osseous structures exhibit no gross abnormality. IMPRESSION: No acute cardiopulmonary abnormality. Electronically authenticated by: FELICIANO QUIROZ Date: 2022-09-04 20:25 Normal [facility] CARDIAC LOUISE ADMITon 023 CK [Catalytic activity/Vol] 10 U/L Critically low 26-192 [facility] Comment on above: Performed By: #### B [id number] #### [facility] [address] [place] [address] Dr. Celina Venegas CK.MB [Mass/Vol] ng/mL Normal <=3.60 [facility] Comment on above: Performed By: #### B [id number] #### [facility] [address] [place] [address] Dr. Celina Venegas HSTROP 11.8 pg/mL Normal 4.0-51.3 [facility] Comment on above: Result Comment: CUT- OFF POINTS HAVE BEEN ESTABLISHED BASED ON THE FOURTH UNIVERSAL DEFINITIONS OF MYOCARDIAL INFARCTION. THE UPPER REFERENCE LIMIT (URL) OF TROPONIN, DEFINED THE 99TH PERCENTILE OF cTnI DISTRIBUTION IN A REFERENCE POPULATION, HAS BEEN CONFIRMED THE DECISION THRESHOLD FOR MT DIAGNOSIS. Performed By: #### B [id number] #### [facility] [address] [place] [address] Dr. Celina Venegas SHAWANDA 27 ng/mL Normal 9-82 [facility] Comment on above: Performed By: #### B [id number] #### [facility] [address] [place] [address] Dr. Celina Venegas CBC AUTO DIFFon 08-20-2022 BASO # 0.0 103/ul Normal 0.0-0.1 [facility] Comment on above: Performed By: #### P REG #### [facility] [address] [place] [address] Dr. Celina Venegas Basophils/100 WBC (Bld) 0.3 % Normal 0.2-2.0 [facility] Comment on above: Performed By: #### P REG #### [facility] [address] [place] [address] Dr. Celina Venegas EO # 0.0 103/ul Normal 0.0-0.7 [facility] Comment on above: Performed By: #### P REG #### [facility] [address] [place] [address] Dr. Celina Venegas Eosinophils/100 WBC (Bld) 0.3 % Critically low 0.9-7.0 [facility] Comment on above: Performed By: #### P REG #### [facility] [address] [address] [address] Celina Venegas Erythrocyte distribution width (RBC) [Ratio] 12.7 % Normal 11.0-15.0 [facility] Comment on above: Performed By: #### P REG #### [facility] [address] [address] [address] Celina Venegas Hematocrit (Bld) [Volume fraction] 35.8 % Critically low 36.0-48.0 [facility] Comment on above: Performed By: #### P REG #### [facility] [address] [place] [address] Dr. Celina Venegas Hemoglobin (Bld) [Mass/Vol] 11.5 g/dL Critically low 12.0-16.0 [facility] Comment on above: Performed By: #### P REG #### [facility] [address] [place] [address] Dr. Celina Venegas IG # 0.04 10e3/ul Critically high 0.00-0.03 [facility] Comment on above: Performed By: #### P REG #### [facility] [address] [place] [address] Dr. Celina Venegas IG % 0.4 % Normal 0.0-0.5 [facility] Comment on above: Performed By: #### P REG #### [facility] [address] [place] [address] Dr. Celina Venegas LYMPH # 1.6 103/ul Normal 1.2-3.8 [facility] Comment on above: Performed By: #### P REG #### [facility] [address] [place] [address] Dr. Celina Venegas Lymphocytes/100 WBC (Bld) 14.0 % Critically low 20.5-60.0 [facility] Comment on above: Performed By: #### P REG #### [facility] [address] [place] [address] Dr. Celina Venegas MANUAL DIFF REQ NO Normal [facility] Comment on above: Performed By: #### P REG #### [facility] [address] [address] [address] Celina Venegas MCH (RBC) [Entitic mass] 25.8 pg Critically low 26.7-34 .0 [facility] Comment on above: Performed By: #### P REG #### [facility] [address] [address] [address] Celina Venegas MCHC (RBC) [Mass/Vol] 32.1 g/dL Normal 29.9-35.2 [facility] Comment on above: Performed By: #### P REG #### [facility] [address] [address] [address] Celina Venegas MCV (RBC) [Entitic vol] 80.3 fL Critically low 81.0-99. 0 [facility] Comment on above: Performed By: #### P REG #### [facility] [address] [place] [address] Dr. Celina Venegas MONO # 0.9 103/ul Critically high 0.3-0.8 [facility] Comment on above: Performed By: #### P REG #### [facility] [address] [place] [address] Dr. Celina Venegas Monocytes/100 WBC (Bld) 8.2 % Normal 1.7-12.0 [facility] Comment on above: Performed By: #### P REG #### [facility] [address] [place] [address] Dr. Celina Venegas NEUT # 8.7 103/ul Critically high 1.4-6.5 [facility] Comment on above: Performed By: #### P REG #### [facility] [address] [place] [address] Dr. Celina Venegas Neutrophils/100 WBC (Bld) 76.8 % Critically high 43.0-75.0 [facility] Comment on above: Performed By: #### P REG #### [facility] [address] [place] [address] Dr. Celina Venegas Platelet mean volume (Bld) [Entitic vol] 10.7 fL Normal 9.5-13.5 [facility] Comment on above: Performed By: #### P REG #### [facility] [address] [place], [place] [address] Dr. Celina Venegas PLT 357 103/ul Normal 150-450 [facility] Comment on above: Performed By: #### P REG #### [facility] [address] [place], [place] [address] Dr. Celina Venegas RBC 4.46 106/ul Normal 4.20-5.40 [facility] Comment on above: Performed By: #### P REG #### [facility] [address] [place], [place] [address] Dr. Celina Venegas WBC 11.4 103/ul Critically high 4.0-11.0 [facility] Comment on above: Performed By: #### P REG #### [facility] [address] [place], [place] [address] ABD/PELV W CONon 08-21-19 CT ABD/PELV W CON CT ABD/PELV W [...] KAYDEN AGUILAR Date: 2022-08-20 10:51 Normal [facility] Covid-19 PCR (CVDTB)on SARS-CoV-2 (COVID-19) RNA ELVA+probe Ql (Unsp spec) Not detected Normal NOT DETECTED [facility] Comment on above: Result Comment: When [...] for this test is supported by the [place] of Health and Human Service's declaration that [...] used). Performed By: #### P REG #### [facility] [address] [place] [address] Dr. Celina Venegas ER URINE PROFILEon 3 Bilirubin Ql (U) Negative Normal NEGATIVE [facility] Comment on above: Performed By: #### M G, BNP, CMP #### [facility] [address] [address] [address] Celina Venegas Clarity (U) CLEAR Normal CLEAR [facility] Comment on above: Performed By: #### M G, BNP, CMP #### [facility] [address] [address] [address] Celina Venegas Color (U) YELLOW Normal YELLOW [facility] Comment on above: Performed By: #### M G, BNP, CMP #### [facility] [address] [place] [address] Dr. Celina SHEPARD A micrscopic examination will be performed if indicated. Normal [facility] Comment on above: Performed By: #### M G, BNP, CMP #### [facility] [address] [place] [address] Dr. Celina Venegas Glucose Ql (U) Negative Normal NEGATIVE [facility] Comment on above: Performed By: #### M G, BNP, CMP #### [facility] [address] [place] [address] Dr. Celina Venegas Hemoglobin Ql (U) Negative Normal NEGATIVE [facility] Comment on above: Performed By: #### M G, BNP, CMP #### [facility] [address] [place] [address] Dr. Celina Venegas Ketones Ql (U) Negative Normal NEGATIVE [facility] Comment on above: Performed By: #### M G, BNP, CMP #### [facility] [address] [address] [address] Celina Venegas LEUKOCYTES Negative Normal NEGATIVE [facility] Comment on above: Performed By: #### M G, BNP, CMP #### [facility] [address] [address] [address] Celina Venegas Nitrite Ql (U) Negative Normal NEGATIVE [facility] Comment on above: Performed By: #### M G, BNP, CMP #### [facility] [address] [place] [address] Dr. Celina Venegas pH (U) 7.0 [pH] Normal 5-9 [facility] Comment on above: Performed By: #### M G, BNP, CMP #### [facility] [address] [place] [address] Dr. Celina Venegas Protein (U) [Mass/Vol] 30 mg/dL Abnormal NEGAT LALO/ TRACE [facility] Comment on above: Performed By: #### M G, BNP, CMP #### [facility] [address] [place] [address] Dr. Celina Venegas SPEC GRAVITY 1.005 Normal 1.005-<=1.[address] [place] [address] Comment on above: Performed By: #### M G, BNP, CMP #### [facility] [address] [place] [address] Dr. Celina Venegas UR MICRO IND INDICATED Normal [facility] Comment on above: Performed By: #### M G, BNP, CMP #### [facility] [address] [place] [address] Dr. Celina Venegas Urobilinogen Qn (U) 1.0 {Pamela'U}/dL Normal 0.2 - 1. 0 [facility] Comment on above: Performed By: #### M G, BNP, CMP #### [facility] [address] [place] [address] Dr. Celina Venegas PROF 14(COMP METB)on 023 Albumin [Mass/Vol] 3.2 g/dL Critically low 3.4-5.0 [facility] Comment on above: Performed By: #### P REG #### [facility] [address] [place] [address] Dr. Celina Venegas Albumin/Globulin [Mass ratio] 0.8 {ratio} Normal [facility] Comment on above: Performed By: #### P REG #### [facility] [address] [place] [address] Dr. Celina Venegas ALP [Catalytic activity/Vol] 190 U/L Critically high 46-116 [facility] Comment on above: Performed By: #### P REG #### [facility] [address] [place] [address] Dr. Celina Venegas ALT [Catalytic activity/Vol] 44 U/L Normal 14-59 [facility] Comment on above: Performed By: #### P REG #### [facility] [address] [address] [address] Celina Venegas Anion gap [Moles/Vol] 15.6 mmol/L Normal [facility] Comment on above: Performed By: #### P REG #### [facility] [address] [address] [address] Celina Venegas AST [Catalytic activity/Vol] 36 U/L Normal 15-37 [facility] Comment on above: Performed By: #### P REG #### [facility] [address] [address] [address] Celina Venegas Bilirubin [Mass/Vol] 0.8 mg/dL Normal 0.2-1.0 [facility] Comment on above: Performed By: #### P REG #### [facility] [address] [address] [address] Celina Venegas Calcium [Mass/Vol] 9.7 mg/dL Normal 8.5-10.1 [facility] Comment on above: Performed By: #### P REG #### [facility] [address] [address] [address] Celina Venegas Chloride [Moles/Vol] 104 mmol/L Normal 98-107 [facility] Comment on above: Performed By: #### P REG #### [facility] [address] [address] [address] Celina Venegas CO2 [Moles/Vol] 21.3 mmol/L Normal 21.0-32.0 [facility] Comment on above: Performed By: #### P REG #### [facility] [address] [address] [address] Celina Venegas Creatinine [Mass/Vol] 0.70 mg/dL Normal 0.55-1.02 [facility] Comment on above: Performed By: #### P REG #### [facility] [address] [address] [address] Celina Venegas EGFR-AF ERITREAN >60 Normal >=60 [facility] Comment on above: Performed By: #### P REG #### [facility] [address] [address] [address] Celina Venegas EGFR-NON AF ERITREAN >60 Normal >=60 [facility] Comment on above: Performed By: #### P REG #### [facility] [address] [address] [address] Celina Venegas Globulin (S) [Mass/Vol] 4.2 g/dL Normal [facility] Comment on above: Performed By: #### P REG #### [facility] [address] [address] [address] Celina Venegas Glucose [Mass/Vol] 110 mg/dL Critically high 74-106 [facility] Comment on above: Performed By: #### P REG #### [facility] [address] [address] [address] Celina Venegas Potassium [Moles/Vol] 2.9 mmol/L Critically low 3.5-5.1 [facility] Comment on above: Performed By: #### P REG #### [facility] [address] [address] [address] Celina Venegas Protein [Mass/Vol] 7.4 g/dL Normal 6.4-8.2 [facility] Comment on above: Performed By: #### P REG #### [facility] [address] [place] [address] Dr. Celina Venegas Sodium [Moles/Vol] 137 mmol/L Normal 136-145 [facility] Comment on above: Performed By: #### P REG #### [facility] [address] [address] [address] Celina Venegas Urea nitrogen [Mass/Vol] 20.0 mg/dL Critically high 7.0-18 .0 [facility] Comment on above: Performed By: #### P REG #### [facility] [address] [place] [address] Dr. Celina Venegas Urea nitrogen/Creatinine [Mass ratio] 28.6 mg/mg Normal [facility] Comment on above: Performed By: #### P REG #### [facility] [address] [place] [address] Dr. Celina Venegas URINE MICROSCOPIC ONLYon BACTERIA NONE SEEN Normal NONE SEEN [facility] Comment on above: Performed By: #### M G, BNP, CMP #### [facility] [address] [place] [address] Dr. Celina Venegas Bacteria identified Cx Nom (U) NOT INDICATED Normal [facility] Comment on above: Performed By: #### M G, BNP, CMP #### [facility] [address] [place] [address] Dr. Celina Venegas CAST NONE SEEN Normal NONE SEEN [facility] Comment on above: Performed By: #### M G, BNP, CMP #### [facility] [address] [place] [address] Dr. Celina Venegas Crystals LM Nom (Urine sed) NONE SEEN Normal NONE SEEN [facility] Comment on above: Performed By: #### M G, BNP, CMP #### [facility] [address] [place] [address] Dr. Celina Venegas Epithelial cells LM Ql (Urine sed) RARE Normal NONE SEEN /RARE [facility] Comment on above: Performed By: #### M G, BNP, CMP #### [facility] [address] [place] [address] Dr. Celina Venegas MUCOUS NONE SEEN Normal NONE SEEN [facility] Comment on above: Performed By: #### M G, BNP, CMP #### [facility] [address] [place] [address] Dr. Celina Venegas RBC NONE SEEN Abnormal 0-2 [facility] Comment on above: Performed By: #### M G, BNP, CMP #### [facility] [address] [place] [address] Dr. Celina Venegas WBC 0-2 Abnormal NONE SEEN [facility] Comment on above: Performed By: #### M G, BNP, CMP #### [facility] [address] [place] [address] Dr. Celina Venegas Vital Signs Date Time Vital Sign Value Performing Clinician Facility 08-27-2024 13:28-0400 Body height 152.4 cm Nereida Cr MD Work Phone: [facility] 08-27-2024 13:28-0400 Body mass index (BMI) [Ratio] 22.46 kg/m2 Nereida Cr MD Work Phone: [facility] 08-27-2024 13:28-0400 Body weight 52.16 kg Nereida Cr MD Work Phone: [facility] 08-27-2024 13:28-0400 Diastolic blood pressure 65 mm[Hg] Nereida Cr MD Work Phone: [facility] 08-27-2024 13:28-0400 Heart rate 77 /min Nereida Cr MD Work Phone: [facility] 08-27-2024 13:28-0400 Respiratory rate 16 /min Nereida Cr MD Work Phone: [facility] 08-27-2024 13:28-0400 SaO2% (BldA) [Mass fraction] 94 % Nereida Cr MD Work Phone: [facility] 08-27-2024 13:28-0400 Systolic blood pressure 112 mm[Hg] Nereida Cr MD Work Phone: [facility] 08-23-2023 12:30-0400 Diastolic blood pressure 78 mm[Hg] MD Sylwia De Work Phone: [facility] 08-23-2023 12:30-0400 Heart rate 64 /min MD Sylwia De Work Phone: [facility] 08-23-2023 12:30-0400 Respiratory rate 20 /min MD Sylwia De Work Phone: [facility] 08-23-2023 12:30-0400 SaO2% (BldA) [Mass fraction] 96 % MD Sylwia De Work Phone: [facility] 08-23-2023 12:30-0400 Systolic blood pressure 156 mm[Hg] MD Sylwia De Work Phone: [place] [address]-10-2024 11:30-0400 Body temperature 97.4 [degF] MD Sylwia De Work Phone: [facility] 08-23-2023 10:55-0400 Inhaled oxygen flow rate 8 L/min MD Sylwia De Work Phone: [facility] 08-23-2023 09:14-0400 Body height 152.4 cm MD Sylwia De Work Phone: [facility] 08-23-2023 09:14-0400 Body mass index (BMI) [Ratio] 22.4 kg/m2 MD Sylwia De Work Phone: [facility] 08-23-2023 09:14-040 Body weight 52 kg MD Sylwia De Work Phone: [facility] Encounters Encounter Date Encounter Type Care Provider Facility Start: 12-11-[address] [facility] Start: 09-23-2024 ambulatory [facility] Start: 09-06-2024 ambulatory [facility] Start: 08-27-2024 End: 08-27-2024 [place]ambo flowsheet Nereida Cr MD Work Phone: [facility] Start: 08-27-2024 End: 08-27-2024 [facility] flowsheet Nereida Cr MD Work Phone: [facility] Start: 08-27-2024 End: 08-27-2024 Office outpatient visit 25 minutes Nereida Cr MD Work Phone: [facility] Comment on above: Postoperative hypoth yroidism (CMS/HCC) (Primary Dx); Graves disease (CMS/HCC); Hypothyroidism, unspecified type (CMS/HCC) Start: 08-27-2024 End: 08-27-2024 ambulatory NEREIDA CR Not Available Start: 08-13-2024 End: 08-14-2024 Refill Nereida Cr MD Work Phone: [facility] Comment on above: Hypothyroidism, unsp ecified type (CMS/HCC) Start: 07-24-2024 End: 07-24-2024 ambulatory [facility] Start: 07-23-2024 End: 07-23-2024 ambulatory [facility] Start: 04-22-2024 End: 04-22-2024 ambulatory [facility] Start: 10-17-2023 End: 10-17-2023 ambulatory RAUL W MURCEK Not Available Start: 10-12-2023 End: 10-12-2023 ambulatory MD Sylwia De Work Phone: [facility] Work Phone: Start: 10-12-2023 End: 10-12-2023 Patient encounter procedure MD Sylwia De Work Phone: [facility] [place] Work Phone: Start: 08-30-2023 End: 08-30-2023 ambulatory RAUL MENDESK Not Available Start: 08-23-2023 End: 08-23-2023 ambulatory Raul Murcek Facility:[facility] Start: 08-23-2023 End: 08-23-2023 Admission to same day surgery center MD Sylwia De Work Phone: [facility] [place] Start: 08-23-2023 End: 08-23-2023 ambulatory MD Sylwia De Work Phone: [facility] Work Phone: Start: 2023 End: 2023 ambulatory Raul Murcek Facility:[facility] Start: 2023 Encounter for preprocedural laboratory examination Raul Lopez [facility] Start: 2023 End: 2023 ambulatory MD Sylwia De Work Phone: [facility] Work Phone: Start: 2023 End: 2023 Patient encounter procedure MD Sylwia De Work Phone: [id number] Work Phone: Start: 10-07-2022 End: 10-09-2022 Evaluation and management of inpatient YAYO ROBBIE . Facility: Start: 09-23-2022 End: 09-23-2022 ambulatory BLOSSOM ROBBIE II Facility:[facility] Start: 09-22-2022 End: 09-23-2022 ambulatory DIVYA ACOSTA Facility:[facility] Start: 09-05-2022 End: 09-06-2022 ambulatory Hector QUILES Facility::[id number] Start: 09-05-2022 End: 09-08-2022 Evaluation and management of inpatient YAYO ROBBIE . Facility:[facility] Start: 08-20-2022 End: 08-20-2022 ambulatory RAQUEL MIN . Facility:[facility] Start: 02-21-[address] DOCTOR QUICK Facility : Procedures Date Procedure Procedure Detail Performing Clinician Start: 08-23-2023 Lobectomy of thyroid gland MD Sylwia De Work Phone: Start: 10-07-2022 Insertion of Endotra cheal Airway into Trachea, Via Natural or Artificial Opening DR DOCTOR QUICK Plan of Treatment Date Care Activity Detail Author Start: 08-26-2025 End: 08-26-2025 Patient encounter procedure 08/26/2025 1:00 PM EDT Office Visit [facility] [address] [place] [id number] Nereida Cr MD [address] [place] [address] [facility] Start: 08-27-2024 End: 08-27-2025 Thyrotropin [Units/volume] in Serum or Plasma TSH Lab Routine Postoperative hypothyroidism (CMS/HCC) Expected: 08/27/2024 (Approximate), Expires: 08/27/2025 [facility] Comment on above: Expected: 08/27/2024 (Approximate), Expi res: 08/27/2025 Start: 08-27-2024 End: 08-27-2025 Thyroxine (T4) free [Mass/volume] in Serum or Plasma T4, free Lab Routine Postoperative hypothyroidism (CMS/HCC) Expected: 08/27/2024 (Approximate), Expires: 08/27/2025 [facility] Comment on above: Expected: 08/27/2024 (Approximate), Expi res: 08/27/2025 Start: 08-27-2024 End: 08-27-2025 Triiodothyronine (T3) Free [Mass/volume] in Serum or Plasma T3, free Lab Routine Postoperative hypothyroidism (CMS/HCC) Expected: 08/27/2024 (Approximate), Expires: 08/27/2025 [facility] Work Phone: Comment on above: Expected: 08/27/2024 (Approximate), Expi res: 08/27/2025 Start: 08-27-2024 End: 08-27-2024 Patient encounter procedure [facility] Comment on above: Arrived Start: 08-23-2023 [facility] Start: 08-23-2023 [facility] Patient referral [facility] Work Phone: Immunizations Immunization Date Immunization Notes Care Provider [facility] 02-04-2015 influenza, seasonal, injectable Nereida Cr MD Work Phone: [facility] Payers Date Payer Category Payer Self-pay [id number] 2019 Private Health Insurance [facility]ICA[facility] [id number] 1969 Unknown [id number]. 727 1969 Unknown [id number] [id number]. 727 1969 Unknown [id number] [id number]. 593 1969 Unknown [id number] [id number]. 593 1969 Unknown [id number] 2.16.840.1.151920.3.579.2. 593 1969 Unknown [id number] [id number]. 593 1969 Unknown [id number] 2.16.840.1.975191.3.579.2. 593 1969 Unknown [id number] 2.16.840.1.985033.3.579.2. 593 1969 Unknown [id number] 2.16.840.1.632919.3.579.2. 1259 1969 Unknown [id number] 2.16.840.1.433312.3.579.2. 1259 1969 Unknown [id number] 2.16.840.1.697108.3.579.2. 1259 1959 Self-pay [id number] 1959 Unknown [id number] Unknown [id number] [id number]. 531 Unknown [id number] [id number]. 531 Social History Date Type Detail Facility Start: 08-13-2023 End: 2023 Tobacco smoking status INIS Never smoked tobacco (finding) [facility] Start: 1970 Sex Assigned At Female [facility] Start: 08-13-2023 Tobacco use and exposure Smokeless tobacco non-user [facility] Start: 02-20-2024 Alcoholic beverage intake Ex-drinker (finding) [facility] Start: 10-17-2023 History of Social function [facility] Start: 10-17-2023 Tobacco use panel [facility] Start: 08-07-2023 Gender identity Identifies as female gender (finding) [facility] Start: 08-07-2023 Sexual orientation Heterosexual (finding) [facility] Medical Equipment Procedure Code Equipment Code Equipment Origin al Text Equipment Identifier Dates Hemithyroidectomy VISTASEAL 4ML FIBRIN SEALANT FDA Start: 08-23-2023 Goals Date Patient Goal Desired Activity /State History of Present illness Narrative 08-13-2024 Nereida Cr MD - 08/27/2024 1:40 PM EDT Note Date & Type Note Facility 08-13-2024 History of Presen t illness Narrative Shahida Mirza is a 54 y.o. female No ref. provider found presents with chief complaint of Thyroid Problem and Follow-up (LAB) HPI: IM : 08/2024 follow up visit on 08/27/2024, on levothyroxine 88 mcg daily. lab on 08/2024 TSH 0.893, FT4 1.22(0.6-1.6), FT3 1.95( 2-4.4) IM : 10/2023 follow up visit on 11/07/2023 s/p surgery by Dr. Lopez for total thyroidectomy on 08/2023 since she has arrhythmia, s/p pacemaker on 09/2023, on levothyroxine 100 mcg daily. lab on 09/2023 TSH 0.044, FT4 1.47(0.76-1.46), FT3 2.59( 2.19-3.98) Interim history: 07/2023. Followup visit 07/21/2023. She still has one episode of arrhythmia during her heart monitor. Direct Service Professional wants to fix her thyroid. Unable to do radioactive treatment since some places do not take insurance and other places, they do not offer that service in town so will send her to surgery for total thyroidectomy. Interim history: 06/2023. Followup visit 06/27/2023 for labs which were done in May in [facility]. We were able to get it. TSH suppressed, less than 0.007, free T3 3.7. When I saw her last time, I tried to send her to Dr. Walter but they do not accept her insurance so I tried to send her to a doctor at [facility]. They have issues with their system. Finally we called them again today and they were able t do it for her. Labs in early June. TSH 0.007, free T3 3.6 (2.2-4.3), free T4 0.7 (0.81-1.9). She used to be on 20, alternate with 20 daily, so we increased her to 20 mg of methimazole which is 10 mg twice a day and will send her to [facility] since her sports journalist wants to do definitive treatment. Interim History: 05/2023 Follow-up office visit 06/05/2023. She is on methimazole 20 mg three days a week and 10 mg four days a week. She was complicated by AFib in [facility] and they put her on blood thinners. She is still on metoprolol 50 mg once a day. She wants definitive treatment of radioactive not surgery, and she is okay with radioactive treatments. So, I will send her to Dr. Walter after reviewing her labs from the [facility] and will check labs again soon, since labs are done in two weeks, and we will communicate the results to her after reviewing the labs. 03/2023 follow up visit on 03/31/2023 TSH <0.005, FT4 0.82(0.8-1.8), FT3 4.9 (2.2-4.3)), on methimazole 10 mg daily. 12/2022 follow up visit on 01/11/2023 TSH 0.005, FT4 1.96(0.8-1.8), FT3 5 (2.2-4.3)), on methimazole 5 mg daily. IM 09/2022 follow up visit on 10/12/2022 TSH 0.007, T4 10.2 (4-13), FT4 1.63 (0.76-1.46), on methimazole 5 mg 6 days a week. was on [facility] for ARF with intubation 03/2022 follow up visit on 03/25/2022 TSH 0.145, FT 1.05 (0.8-1.8), FT3 3.4(2.4-2.), on methimazole 5 mg 6 days a week. IM follow up visit on 12/2021 TSH 9, FT 0.54 (0.8-1.8), FT3 2.66(2.4-2.), on methimazole 10 mg daily. New patient 09/2021 the last time seen by me in 2018. She is on methimazole 10 mg three times a day now. Two years ago she was off insurance and she was off of her medication for a while, then she went to the hospital with AFib and congestive heart failure and then they started her back on methimazole and she is still doing 10 mg three times a week. She gained weight since I saw her. I told her we need to do new labs and adjust the medication accordingly. Meanwhile we can cut back the methimazole to once a day. interim history 06/01 Follow-up visit in 05/16/17 for Graves' disease lab showing TSH 0.01, free T4 4, free T3 15 so high, TPO 59, TSI 464 [0-139), thyroglobulin antibodies 2.7 [0-0.9). ultrasound shows right lobe 5.1 1.8X1.9, left lobe 4.9 1.9X 1.7 without Nodules. She still on Metoprolol, No Change in Weight HPI: new patient sent from Dr. Sylwia De in [place] for hyperthyroidism, had been on methimazole for almost 1 year off since 10/29 the dose tapered TO 5 MG ONCE A DAY, she was following privacy manager in [place], she lost weight from 150 down to 93 pounds and now in 03/31 she is 114, she has palpitation, tremor, SHAKING, she is on metoprolol 100 mg twice a day with partial relief, sister has hypothyroidism. SUBJECTIVE: MEDICATIONS: Current Outpatient Medications Medication Instructions albuterol HFA 90 mcg/act inhaler 2 puffs, Every 6 hours PRN atorvastatin (LIPITOR) 10 mg, Nightly busPIRone (Buspar) 15 MG tablet cetirizine (ZyrTEC) 10 MG tablet citalopram (CeleXA) 20 MG tablet Eliquis 5 mg, 2 times daily hydroCHLOROthiazide (HYDRODIURIL) 12.5 mg, Daily RT levothyroxine (SYNTHROID, LEVOXYL) 88 mcg, Oral, Every morning, on an empty stomach losartan (Cozaar) 100 MG tablet MAGnesium-Oxide 400 (240 Mg) MG tablet metoprolol tartrate (LOPRESSOR) 25 mg, Daily mirtazapine (Remeron) 15 MG tablet nitroglycerin (Nitrostat) 0.4 MG SL tablet traZODone (Desyrel) 100 MG tablet ALLERGIES: Allergies Allergen Reactions Dapagliflozin Nausea And Vomiting Past Medical History: Diagnosis Date Abnormal stress test 04/18/2023 Anxiety Atrial fibrillation with rapid ventricular response ([facility]/HCC) 05/24/2023 Atrial flutter ([facility]) 12/04/2022 Cardiac arrhythmia 05/24/2023 Chest pain 05/24/2023 Chronic diastolic heart failure ([facility]) 12/04/2022 COPD (chronic obstructive pulmonary disease) ([facility]) 08/10/2023 Coronary artery disease ([facility]) 04/18/2023 Depression ([facility]) Diverticulitis 11/25/2022 Elevated lactic acid level 08/10/2023 Elevated troponin I level 08/10/2023 Essential hypertension ([facility]) 12/04/2022 Graves disease ([facility]) HTN (hypertension) ([facility]) Hypokalemia 08/10/2023 Hypomagnesemia 10/28/2022 Insomnia 03/07/2023 Post-surgical hypothyroidism ([facility]) Seasonal allergic rhinitis due to pollen 11/25/2022 Shortness of breath 08/10/2023 Sinus pause 08/10/2023 Status post laparoscopic appendectomy 11/25/2022 Past Surgical History: Procedure Laterality Date CARDIAC PACEMAKER PLACEMENT 09/2023 HEART CATH TOTAL THYROIDECTOMY 08/23/2023 Graves Disease REVIEW OF SYMPTOMS: 14 POINT OF SYSTEM REVIEWED AND NEGATIVE OBJECTIVE: Visit Vitals BP 112/65 Pulse 77 Resp 16 Ht 5' Wt 115 lb SpO2 94% BMI 22.46 kg/m Smoking Status Never BSA 1.49 m Physical Exam Constitutional: Appearance: Normal appearance. She is normal weight. HENT: Head: Normocephalic and atraumatic. Right Ear: External ear normal. Nose: Nose normal. Mouth/Throat: Pharynx: Oropharynx is clear. Eyes: Extraocular Movements: Extraocular movements intact. Pupils: Pupils are equal, round, and reactive to light. Cardiovascular: Rate and Rhythm: Normal rate and regular rhythm. Pulmonary: Effort: Pulmonary effort is normal. Abdominal: General: Abdomen is flat. Palpations: Abdomen is soft. Musculoskeletal: General: Normal range of motion. Skin: General: Skin is warm. Neurological: General: No focal deficit present. Mental Status: She is alert. Psychiatric: Mood and Affect: Mood normal. Behavior: Behavior normal. ASSESSMENT AND PLAN: Assessment/Plan Diagnoses and all orders for this visit: Postoperative hypothyroidism (CMS/HCC) - T3, free; Future - T4, free; Future - TSH; Future C/o Levothyroxine 88 mcg daily Graves disease (CMS/HCC) Hypothyroidism, unspecified type (CMS/HCC) - levothyroxine (Synthroid, Levoxyl) 88 MCG tablet; Take 1 tablet (88 mcg) by mouth in the morning. on an empty stomach. Follow up in about 1 year (around 08/27/2025). documented in this encounter [facility] Progress note 07-24-2024 Note Date & Type Note Facility 07-24-2024 Note [facility] - [facility] Subjective Shahida Mirza is a 53 y.o. year old female patient being seen for Sinus pause Congestive Heart Failure , Hypertension , Atrial Flutter Patient Active Problem List Diagnosis Hypomagnesemia Diverticulitis Seasonal allergic rhinitis due to pollen Status post laparoscopic appendectomy NSVT (nonsustained ventricular tachycardia) (CMS/HCC) Atrial flutter (CMS/HCC) Chronic diastolic heart failure (CMS/HCC) Essential hypertension Insomnia Abnormal stress test VT (ventricular tachycardia) (CMS/HCC) Atrial fibrillation with RVR (CMS/HCC) Cardiac arrhythmia Chest pain Hypokalemia Elevated lactic acid level Elevated troponin I level Shortness of breath Sinus pause Atrial fibrillation with rapid ventricular response (CMS/HCC) Bradycardia Pacemaker Benign hypertensive heart disease with heart failure (CMS/HCC) Hyperlipidemia Asthma Postoperative hypothyroidism Severe major depression (CMS/HCC) HPI 07/24/2024 Patient states that she has been doing well. She denies any chest discomfort at rest or with exertion. She denies exertional dyspnea, orthopnea or paroxysmal nocturnal dyspnea. She denies dizziness, syncope or near syncope. She denies palpitations, legs edema or discomfort on exertion. She reports that her blood pressure at home has been normal She reports that she has been following the same diet and taking atorvastatin as used to be 04/22/2024 Patient reports that she is overall doing well. She reports exertional dyspnea which was chronic. Patient never been a smoker. She reports that she was on diuretic before and she thinks that she felt better but it was discontinued because she did not have any further legs edema. She denies any chest comfort at rest or with exertion. She denies orthopnea or paroxysmal nocturnal dyspnea or dizziness or palpitations or legs edema ROS All systems were reviewed and they were negative except for the positive findings noted above in the history Past Medical History: Diagnosis Date Abnormal ECG Arrhythmia CHF (congestive heart failure) ([facility]) COPD (chronic obstructive pulmonary disease) ([facility]) Hypertension NSVT (nonsustained ventricular tachycardia) ([facility]) Past Surgical History: Procedure Laterality Date APPENDECTOMY THYROIDECTOMY Family History Problem Relation Name Age of Onset Other (pacemaker) Mother Coronary artery disease Father Other (CABG) Father Social History Tobacco Use Smoking status: Never Passive exposure: Past Smokeless tobacco: Never Substance Use Topics Alcohol use: Not Currently Allergies Allergies Allergen Reactions Farxiga [Dapagliflozin] Nausea And Vomiting Medications Current Outpatient Medications: albuterol 90 mcg/actuation inhaler, Inhale 2 puffs every 6 (six) hours if needed for wheezing., Disp: , Rfl: apixaban (Eliquis) 5 mg tablet, Take 1 tablet (5 mg) by mouth two times daily., Disp: 180 tablet, Rfl: 3 atorvastatin (Lipitor) 40 mg tablet, Take 10 mg by mouth at bedtime., Disp: , Rfl: busPIRone (Buspar) 15 mg tablet, once daily as directed., Disp: , Rfl: citalopram (CeleXA) 10 mg tablet, Take 20 mg by mouth in the morning., Disp: , Rfl: furosemide (Lasix) 20 mg tablet, Take 1 tablet (20 mg) by mouth in the morning., Disp: 90 tablet, Rfl: 3 levothyroxine (Synthroid, Levoxyl) 100 mcg tablet, Take 100 mcg by mouth., Disp: , Rfl: losartan (Cozaar) 25 mg tablet, Take 1 tablet (25 mg) by mouth in the morning., Disp: 30 tablet, Rfl: 0 metoprolol tartrate (Lopressor) 50 mg tablet, Take 1 tablet (50 mg) by mouth two times daily., Disp: 180 tablet, Rfl: 3 nitroglycerin (Nitrostat) 0.4 mg SL tablet, as directed Sublingual daily as directed for 30 days, Disp: , Rfl: ondansetron ODT (Zofran-ODT) 4 mg disintegrating tablet, 1 (one) time each day at the same time., Disp: , Rfl: Objective Visit Vitals BP 122/66 (BP Location: Left arm, Patient Position: Sitting) Pulse 64 Ht 1.524 m (5') Wt 53.5 kg (118 lb) SpO2 97% BMI 23.05 kg/m??? OB Status Postmenopausal Smoking Status Never BSA 1.5 m??? Physical exam: GENERAL: alert and oriented x3, well developed, in no acute distress. HEAD: atraumatic, normocephalic. EYES: MILY, EOMI. NECK: trachea midline, no JVD present, no carotid bruits present. CARDIAC: S1, S2 present. RRR. No murmur, rubs, or gallops. RESPIRATORY: CTAB, no increased effort of breathing, no rales, rhonchi, or wheezing. ABDOMEN: soft, nontender, nondistended. EXTREMITIES: no lower extremity edema, No rash/skin discoloration present. NEURO: strength/sensation equal and symmetric in bilateral upper and lower extremities. PSYCH: appropriate mood, affect, and judgement. Recent Labs 07/19/2024 Glucose 84, sodium 145, potassium 3.5, BUN 15, creatinine 0.97, GFR 69, calcium 8.6 AST 26, ALT 53, cholesterol 227, triglyceride 136, HDL 43, LDL 157 09/22/2022 (more content not included)... [facility] Progress note 04-22-2024 Note Date & Type Note Facility 04-22-2024 Note [facility] - [facility] Subjective Shahida Mirza is a 53 y.o. year old female patient being seen for Sinus pause Congestive Heart Failure , Hypertension , Atrial Flutter Patient Active Problem List Diagnosis Hypomagnesemia Diverticulitis Seasonal allergic rhinitis due to pollen Status post laparoscopic appendectomy NSVT (nonsustained ventricular tachycardia) (CMS/HCC) Atrial flutter ([facility]/HCC) Chronic diastolic heart failure ([facility]HCC) Essential hypertension Insomnia Coronary artery disease Abnormal stress test VT (ventricular tachycardia) ([facility]/HCC) Atrial fibrillation with RVR ([facility]/HCC) Cardiac arrhythmia Chest pain COPD (chronic obstructive pulmonary disease) ([facility]) Hypokalemia Elevated lactic acid level Elevated troponin I level Shortness of breath Sinus pause Atrial fibrillation with rapid ventricular response ([facility]) Bradycardia Pacemaker HPI Patient reports that she is overall doing well. She reports exertional dyspnea which was chronic. Patient never been a smoker. She reports that she was on diuretic before and she thinks that she felt better but it was discontinued because she did not have any further legs edema. She denies any chest comfort at rest or with exertion. She denies orthopnea or paroxysmal nocturnal dyspnea or dizziness or palpitations or legs edema ROS All systems were reviewed and they were negative except for the positive findings noted above in the history Past Medical History: Diagnosis Date Abnormal ECG Arrhythmia CHF (congestive heart failure) ([facility]) COPD (chronic obstructive pulmonary disease) ([facility]) Hypertension NSVT (nonsustained ventricular tachycardia) ([facility]) Past Surgical History: Procedure Laterality Date APPENDECTOMY THYROIDECTOMY Family History Problem Relation Name Age of Onset Other (pacemaker) Mother Coronary artery disease Father Other (CABG) Father Social History Tobacco Use Smoking status: Never Passive exposure: Past Smokeless tobacco: Never Substance Use Topics Alcohol use: Not Currently Allergies Allergies Allergen Reactions Farxiga [Dapagliflozin] Nausea And Vomiting Medications Current Outpatient Medications: albuterol 90 mcg/actuation inhaler, Inhale 2 puffs every 6 (six) hours if needed for wheezing., Disp: , Rfl: apixaban (Eliquis) 5 mg tablet, Take 1 tablet (5 mg) by mouth two times daily., Disp: 180 tablet, Rfl: 3 atorvastatin (Lipitor) 40 mg tablet, Take 10 mg by mouth at bedtime., Disp: , Rfl: busPIRone (Buspar) 15 mg tablet, once daily as directed., Disp: , Rfl: citalopram (CeleXA) 10 mg tablet, Take 20 mg by mouth in the morning., Disp: , Rfl: levothyroxine (Synthroid, Levoxyl) 100 mcg tablet, Take 100 mcg by mouth., Disp: , Rfl: losartan (Cozaar) 25 mg tablet, Take 1 tablet (25 mg) by mouth in the morning., Disp: 30 tablet, Rfl: 0 metoprolol tartrate (Lopressor) 50 mg tablet, Take 1 tablet (50 mg) by mouth two times daily., Disp: 180 tablet, Rfl: 3 nitroglycerin (Nitrostat) 0.4 mg SL tablet, as directed Sublingual daily as directed for 30 days, Disp: , Rfl: potassium gluconate 595 mg (99 mg) tablet, Take by mouth., Disp: , Rfl: Objective Visit Vitals BP 149/79 (BP Location: Left arm, Patient Position: Sitting) Pulse 76 Ht 1.524 m (5') Wt 50.3 kg (111 lb) SpO2 98% BMI 21.68 kg/m??? OB Status Postmenopausal Smoking Status Never BSA 1.46 m??? Physical exam: GENERAL: alert and oriented x3, well developed, in no acute distress. HEAD: atraumatic, normocephalic. EYES: MILY, EOMI. NECK: trachea midline, no JVD present, no carotid bruits present. CARDIAC: S1, S2 present. RRR. No murmur, rubs, or gallops. RESPIRATORY: CTAB, no increased effort of breathing, no rales, rhonchi, or wheezing. ABDOMEN: soft, nontender, nondistended. EXTREMITIES: no lower extremity edema, No rash/skin discoloration present. NEURO: strength/sensation equal and symmetric in bilateral upper and lower extremities. PSYCH: appropriate mood, affect, and judgement. Recent Labs 09/22/2022 Cholesterol 162, triglyceride 151, LDL 91, HDL 41 Lab Results Component Value Date GLUCOSE 85 05/26/2023 CALCIUM 9.8 05/26/2023 NA 139 05/26/2023 K 4.1 05/26/2023 CO2 23 05/26/2023 CL 108 (H) 05/26/2023 BUN 18 05/26/2023 CREATININE 0.85 05/26/2023 Lab Results Component Value Date WBC 5.38 05/25/2023 HGB 10.5 (L) 05/25/2023 HCT 32.9 (L) 05/25/2023 MCV 81.6 (L) 05/25/2023 PLT 213 05/25/2023 Lab Results Component Value Date ALT 25 05/24/2023 AST 15 05/24/2023 ALKPHOS 149 (H) 05/24/2023 BILITOT 0.4 05/24/2023 Lab Results Component Value Date TSH <0.01 (L) 05/25/2023 Imaging and other tests EK10/25/2023 IMPRESSION: Sinus bradycardia Otherwise normal ECG When compared with ECG of 25-MAY-2023 13:55, No significant change was found Confirmed by Fabian Lira ([id number]) on 10/25/2023 10:30:29 PM Ech (more content not included)... [facility] Clinical Note 10-09-2022 Note Date & Type [...] by: ARTUR ZARATE Date: 2022-10-09 06:48 [facility] Consultation note 09-05-2022 Note Date & [...] hospital course. CC: Patient's family physician [facility] Evaluation note Note Date & Type Note Facility Evaluation note [facility]: Evaluation note Note Date & Type Note Facility Evaluation note Diagnosis Hypothyroidism, unspecified type (CMS/HCC) documented in this encounter [facility] Evaluation note Note Date & Type Note Facility Evaluation note Diagnosis Postoperative hypothyroidism (CMS/HCC)- Primary Postsurgical hypothyroidism Graves disease (CMS/HCC) Toxic diffuse goiter without mention of thyrotoxic crisis or storm Hypothyroidism, unspecified type (CMS/HCC) documented in this encounter [facility] Discharge instructions Note Date & Type Note Facility Hospital Discharge instructions Additional Instructions DISCHARGE INSTRUCTIONS [...] Stop methimazole and throw away 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 and take as directed Tylenol or Motrin for discomfort [] [facility] Work Phone: Summary Purpose Family [...] section and content) DATE CREATED AUTHOR 09/10/2022 Agustin zlien [facility] DATE CREATED AUTHOR AUTHOR'S ORGANIZ ATION 10/21/2022 [facility] DATE CREATED AUTHOR AUTHOR'S ORGANIZ ATION 08/30/2023 [facility] DATE CREATED AUTHOR AUTHOR'S ORGANIZ ATION 08/29/2024 [facility] DATE CREATED AUTHOR AUTHOR'S ORGANIZ ATION 12/13/2024 [facility] Care Teams (unrecognized sec tion and content) Team Status: Active Member Role Status Dates Sylwia De MD Primary Care Provider Active Team Status: Inactive Member Role Status Dates Sylwia De MD Primary Care Provider Active Start: 2023 End: 2023 Raul Lopez DO Attending Provider Active S tart: 2023 End: 2023 Team Status: Inactive Member Role Status Dates Sylwia De MD Primary Care Provider Active Start: August 23, 2023 End: August 23, 2023 Raul Lopez DO Attending Provider Active S tart: August 23, 2023 End: August 23, 2023 Team Status: Inactive Member Role Status Dates Sylwia De MD Primary Care Provider Active Start: October 12, 2023 End: October 12, 2023 Raul Lopez DO Attending Provider Active S tart: October 12, 2023 End: October 12, 2023 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 Start Date End Date Sylwia De MD [facility] [place] [address] PCP - General Family Medicine 08/11/23 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 Start Date End Date Sylwia De MD [facility] [place] [address] PCP - General Family Medicine 08/11/23 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 [facility]. provides no warranty or guarantee of the accuracy or completeness of information in this document.
--- NOTE | 2025-02-04 12:38 | XR_ITS ---
The [address] [address] Patient Name: MARINA MIRZA MRN: [id number] date: 1970 Sex: F Assigned Patient Location: ER Current Patient Location: ER Accession/Order Number: [id number] Exam Date: 02/04/2025 13:22 Report Date: 02/04/2025 14:04 At the request of: DIANDRA WALLS Procedure: XR chest 2V Chest 2 views CLINICAL HISTORY: short of breath COMPARISON: None FINDINGS: Pacemaker device is noted. Heart is normal in size. Lungs are clear. No free air. XR/XR chest 2V IMPRESSION: NO ACUTE CARDIOPULMONARY ABNORMALITY. Impression dictated by: Kush Ma Jr., DAlejandraOAlejandra 02/04/2025 2:04 PM Dictation Location: [place] [address] Electronically authenticated by: [id number] Y Date: 02/04/2025 14:04
--- NOTE | 2025-02-04 12:38 | ECG_ITS ---
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 Measurements Intervals [place] Rate: 75 P: 50 OK: 158 QRS: 75 QRSD: 90 T: 100 QT: 418 QTc: 448 Interpretive Statements 1100 Sinus rhythm 1570 with occasional ventricular premature complexes [address] depression [address] & Twave abnormality 9150 abnormal ECG Compared to ECG 05/24/2023 14:18:07 Ventricular premature complex(es) now present Atrial fibrillation no longer present Possible ischemia no longer present ST (T wave) deviation still present Electronically Signed On 02-04-2025 18:06:38 EDT by PROSPER POPE M.D.
--- NOTE | 2025-02-04 12:47 | ED_ITS ---
HPI - SOB/Dyspnea General Chief Complaint: Shortness of Breath/Dyspnea Stated Complaint: SOB WEAKNESS Time Seen by Provider: 02/04/25 12:19 Source: patient Mode of arrival: Wheelchair Limitations: no limitations History of Present Illness HPI Narrative: 54-year-old female with a history of atrial fibrillation (on Eliquis, metoprolol), pacemaker, hypothyroidism (status post thyroidectomy), prior HIRAM, pancreatitis, and hypokalemia presents with shortness of breath and palpitations for 3 days. Pacemaker was placed in May 2023 she states for my heart stopping . This was done at [facility]. She has a Hexaformer pacer. She has never had any complications with the pacer. She reports that palpitations are worse when lying down and with activity, and are accompanied by exertional shortness of breath, sweats, and chills. No chest pain, syncope, or dizziness. She had one episode of emesis this morning with mild nausea but no ongoing vomiting. She reports dry mouth but normal fluid and food intake. She denies cough, congestion, leg swelling, recent illness, travel, alcohol, tobacco, or illicit drug use. She does take THC gummies at night without prior issues. No abdominal pain, normal bowel and bladder habits. MD elicited complaint: shortness of breath Related Data Home Medications ?Medication ?Instructions ?Recorded ?Confirmed apixaban 5 mg tablet (Eliquis) 5 mg PO Q12H 10/19/22 0 02/04/25 atorvastatin 40 mg tablet 40 mg PO .at night 10/19/22 02/04/25 citalopram 20 mg tablet 10 mg PO QDAY 10/19/2210/19 furosemide 20 mg tablet 20 mg PO DAILY 10/19/2201/14 losartan 100 1 tab PO DAILY 10/19/2212/04 mg-hydrochlorothiazide 12.5 mg tablet methimazole 5 mg tablet 5 mg PO .COMPLEX 10/19/22 metoprolol tartrate 100 mg tablet 100 mg PO Q12H 10/1910/19/22 metoprolol tartrate 25 mg tablet 25 mg PO Q12H 3 10/19/22 mirtazapine 15 mg tablet 15 mg PO .qhs PRN insomnia 0 10/19/22 10/19/22 potassium chloride 20 mEq 20 meq PO TID 10/19/2210/19 tablet,extended release(part/cryst) (Klor-Con M) albuterol sulfate 90 mcg/actuation inhalation 02/04/25 aerosol inhaler levothyroxine 88 mcg tablet mcg 02/04/25 losartan 25 mg tablet mg 02/04/25 metoprolol tartrate 50 mg tablet mg 02/04/25 potassium chloride 20 mEq 20 meq PO DAILY 02/04/25 tablet,extended release(part/cryst) (Klor-Con M) Previous Rx's ?Medication ?Instructions ?Recorded levofloxacin 750 mg tablet 750 mg PO QD 5 days #5 tabs 10/22/22 metronidazole 500 mg tablet 500 mg PO Q8H 5 days #15 t abs 10/22/22 ondansetron 4 mg disintegrating 4 mg sublingual Q6H RI N nausea and 10/22/22 tablet vomiting #10 tabs hyoscyamine sulfate 0.125 mg 0.125 mg PO Q6H PRN abdom inal pain 03/15/23 tablet (Levsin) #12 tabs ondansetron 4 mg disintegrating 4 mg PO Q6H PRN nausea and 03/15/23 tablet vomiting #12 tabs Allergies Allergy/AdvReac Type Severity Reaction Status Date / Time dapagliflozin (From [facility]) Allergy Intermediate Vomiting Verified 02/04/25 12:13 PFSH PFSH Medical History (Updated 02/04/25 @ 16:43 by KAVITA MARCOS) HLD (hyperlipidemia) ?E78.5 - Hyperlipidemia, unspecified (ICD-10) Diverticulitis ?K57.92 - Diverticulitis of intestine, part unspecified, without perforation or abscess without bleeding (ICD-10) CHF (congestive heart failure) ?I50.9 - Heart failure, unspecified (ICD-10) Hyperthyroidism ?E05.90 - Thyrotoxicosis, unspecified without thyrotoxic crisis or storm (ICD-10) HTN (hypertension) ?I10 - Essential (primary) hypertension (ICD-10) Atrial fibrillation ?I48.91 - Unspecified atrial fibrillation (ICD-10) Surgical History (Updated 10/19/22 @ 15:32 by Shelley Mejía RN) Hx of appendectomy ?Z90.49 - Acquired absence of other specified parts of digestive tract (ICD- 10) Family History (Updated 10/19/22 @ 15:34 by Shelley Mejía RN) Father Family history of stroke Family history of myocardial infarction Family history of hypertension Mother Family history of hypertension Family history of diabetes mellitus Family history of cancer Family history of COPD (chronic obstructive pulmonary disease) Grandmother Family history of cancer Social History Within the past year, how often did you have a drink containing alcohol: monthly or less Within the past year, how many standard drinks containing alcohol did you have on a typical day: 1 or 2 Within the past year, how often did you have six or more drinks on one occasion: never Total score: 0 Score interpretation: A score less than 3 is consistent with normal alcohol consumption. Smoking status: Never smoker Second hand tobacco smoke exposure: Yes Non-prescribed substance use: cannabis (any form) Non-prescribed substance use details: PATIENT STATES SHE USED TO USE THC GUMMIES Previous occupational history: [employer] Known occupational exposures/hazards: No Highest level of school completed/degree received: GED or equivalent Are you now , , , , never or living with a partner: In a typical week, how many times do you talk on the telephone with family, friends, or neighbors: twice per week How often do you get together with friends or relatives: once per week How often do you attend amish or sikhism services: never Do you belong to any clubs or organizations such as amish groups unions, fraternal or athletic groups, or school groups: no Total score: 1 Score interpretation: A score of less than or equal to 1 indicates the most socially isolated. Little interest or pleasure in doing things: not at all Feeling down, depressed, or hopeless: not at all Feel stressed/tense/nervous/anxious/difficulty sleeping: very much Life stressors: financial matters Do you think of yourself as: straight/heterosexual Gender Identity: female Exam Narrative Exam Narrative: General: Alert, oriented, mildly anxious, pressured speech, not in acute distress. HEENT: Dry, cracked lips; oromucosa dry; otherwise normal exam. Cardiac: Regular rate with occasional PVCs, no murmurs or gallops. Respiratory: Lungs clear bilaterally, no wheezes or rales. Abdomen: Soft, nontender, nondistended. Extremities: No edema, tenderness, or asymmetry. Pulses equal bilaterally. Neuro: Mentation at baseline, no focal deficits. Skin: Warm, well perfused, no rashes Constitutional Vital Signs, click to edit/add: Last Vital Signs Temp 97.9 F 02/04/25 12:20 Pulse 83 02/04/25 16:30 Resp 20 02/04/25 16:30 BP 137/83 02/04/25 16:30 Pulse Ox 70 L 02/04/25 15:40 O2 Del Method Room Air 02/04/25 12:20 Course Reevaluation(s) Reevaluation #1: Patient still receiving IV fluid. Will reevaluate patient's when IV fluid is completed. She does appear a little more comfortable. Time: 14:22 Vital Signs Vital signs: Vital Signs Temperature 97.9 F 02/04/25 12:20 Pulse Rate 85 02/04/25 12:20 Respiratory Rate 20 02/04/25 12:20 Blood Pressure 123/65 02/04/25 12:20 Pulse Oximetry 100 02/04/25 12:20 Oxygen Delivery Method Room Air 02/04/25 12:20 Temperature 97.9 F 02/04/25 12:20 Pulse Rate 83 02/04/25 16:30 Respiratory Rate 20 02/04/25 16:30 Blood Pressure 137/83 02/04/25 16:30 Pulse Oximetry 70 L 02/04/25 15:40 Oxygen Delivery Method Room Air 02/04/25 12:20 MDM - SOB/Dyspnea MDM Narrative Medical decision making narrative: Notable Diagnostics: * Labs: WBC 15.3, Hgb 16, Hct 47, BUN 34, creatinine 1.54 (mild HIRAM), calcium 10.2, electrolytes otherwise normal, UA normal. * Thyroid Studies: TSH 0.054 (low), Free T4 1.93 (elevated). * Pacer Interrogation: Normal function, no episodes of atrial fibrillation noted. ED Course: Patient given IV normal saline with clinical improvement and resolution of palpitations/shortness of breath. She tolerated PO fluids and food prior to discharge. This is a 54-year-old female with a complex past medical history presenting with palpitations and exertional shortness of breath. Exam notable for mild dehydration with dry oral mucosa and anxious affect. Workup revealed leukocytosis (WBC 15.3), mild hemoconcentration, mild HIRAM (creatinine 1.54), and low TSH with elevated free T4 suggestive of possible over-replacement or hyperthyroidism. Electrolytes were otherwise normal, and UA was unremarkable. Pacemaker interrogation was performed with no episodes of atrial fibrillation detected. No arrhythmia or decompensation observed on monitor. Symptoms improved after IV fluid resuscitation, supporting dehydration as a contributor. Differential included atrial fibrillation with RVR (ruled out by monitor and pacer interrogation), thyroid-related tachyarrhythmia, anxiety, dehydration, infection, and metabolic derangements. While her leukocytosis may represent stress response or subclinical infection, she is afebrile, with stable vital signs, and shows no infectious source on exam. UA and CXR are normal. Discussed observation admission versus close outpatient follow-up; given improvement and stable exam, discharge was considered safe. Patient advised to follow up urgently with PCP and endocrinology regarding abnormal thyroid studies and renal function. Strict return precautions reviewed. Discussed with Dr. Benton. Medical Records Attestation: I reviewed the patient's medical records. Lab Data Attestation: I reviewed the patient's lab results. Labs: Lab Results 02/04/25 02/04/25 02/04/25 Range/Units 12:53 13:50 14:17 WBC 15.3 H (4.0-11.0) 10^3/uL RBC 5.52 H (4.20-5.40) 10^6/uL Hgb 16.1 H (12.0-16.0) g/dL Hct 47.6 (36.0-48.0) % MCV 86.2 (81.0-99.0) fL MCH 29.2 (26.7-34.0) pg MCHC 33.8 (29.9-35.2) g/dL RDW 13.2 (11.0-15.0) % Plt Count 475 H (150-450) 10^3/uL MPV 10.7 (9.5-13.5) fL Neut % (Auto) 77.1 H (43.0-75.0) % Lymph % (Auto) 16.9 L (20.5-60.0) % [place] % (Auto) 4.4 (1.7-12.0) % Eos % (Auto) 0.7 L (0.9-7.0) % Baso % (Auto) 0.6 (0.2-2.0) % Neut # (Auto) 11.9 H (1.4-6.5) 10^3/uL Lymph # (Auto) 2.6 (1.2-3.8) 10^3/uL [place] # (Auto) 0.7 (0.3-0.8) 10^3/uL Eos # (Auto) 0.1 (0.0-0.7) 10^3/uL Baso # (Auto) 0.1 (0.0-0.1) 10^3/uL Abs Immat Gran (auto) 0.04 H (0.00-0.03) 10^3/uL Imm/Tot Granulo (auto) 0.3 (0.0-0.5) % D-Dimer 0.31 (<=0.59) mg/L FEU Sodium 139 (136-145) mmol/L Potassium 4.1 (3.5-5.1) mmol/L Chloride 98 (98-107) mmol/L Carbon Dioxide 21.4 (21.0-32.0) mmol/L Anion Gap 23.7 BUN 34.0 H (7.0-18.0) mg/dL Creatinine 1.50 H (0.55-1.02) mg/dL Est GFR ( Amer) 44 L (>=60 mL/min/1.73m^2) Est GFR (Non-Af Amer) 36 L (>=60 mL/min/1.73m^2) BUN/Creatinine Ratio 22.7 Glucose 129 H (74-106) mg/dL Calcium 10.2 H (8.5-10.1) mg/dL Magnesium 1.9 (1.8-2.4) mg/dL Total Bilirubin 0.8 (0.2-1.0) mg/dL AST 27 (15-37) U/L ALT 60 H (14-59) U/L Alkaline Phosphatase 150 H (46-116) U/L Troponin I High Sens 8.2 10.6 (4.0-51.3) pg/mL Total Protein 9.9 H (6.4-8.2) g/dL Albumin 5.4 H (3.4-5.0) g/dL Globulin 4.5 g/dL Albumin/Globulin Ratio 1.2 TSH 0.054 L (0.358-3.740) uIU/mL Free T4 1.93 H (0.76-1.46) ng/dL Urine Color Lt. yellow (YELLOW) Urine Clarity Clear (CLEAR) Urine pH 6.0 (5.0-9.0) Ur Specific [place] 1.010 (1.005-1.025) Urine Protein Negative (NEG/TRACE) mg/dL Urine Glucose (UA) Negative (NEGATIVE) mg/dL Urine Ketones Negative (NEGATIVE) mg/dL Urine Occult Blood Trace-i (NEGATIVE) Urine Nitrite Negative (NEGATIVE) Urine Bilirubin Negative (NEGATIVE) Urine Urobilinogen 0.2 (0.2-1.0) EU/dL Ur Leukocyte Esterase Negative (NEGATIVE) Urine RBC 0-2 (0-2) #/HPF Urine WBC 0-2 A (NONE SEEN) #/HPF Ur Squamous Epith Cells Few A (NONE/RARE) #/LPF Urine Crystals None seen (None Seen) #/HPF Urine Bacteria None seen (NONE SEEN) #/HPF Urine Casts Seen A (NONE SEEN) #/LPF Hyaline Casts Rare Urine Mucus None seen (NONE SEEN) Imaging Data Chest x-ray: Attestation: I have reviewed the pertinent imaging results. Radiologist's impression: ITS Impressions Chest X-Ray 02/04/25 12:38 IMPRESSION: NO ACUTE CARDIOPULMONARY ABNORMALITY. Impression dictated by: Kush Ma Jr., D.O. 02/04/2025 2:04 PM Dictation Location: [place] [address] Electronically authenticated by: [id number] Y Date: 02/04/2025 14:04 Discharge Plan Discharge Chief Complaint: Shortness of Breath/Dyspnea Clinical Impression: Acute dehydration, Low TSH level, History of palpitations, HIRAM (acute kidney injury) Patient Disposition: Home, Self-Care Time of Disposition Decision: 16:42 Condition: Good Prescriptions / Home Meds: No Action Eliquis 5 mg tablet 5 mg PO Q12H atorvastatin 40 mg tablet 40 mg PO .at night furosemide 20 mg tablet 20 mg PO DAILY potassium chloride [Klor-Con M20] 20 mEq tablet,ER particles/crystals 20 meq PO TID metoprolol tartrate 100 mg tablet 100 mg PO Q12H metoprolol tartrate 25 mg tablet 25 mg PO Q12H citalopram 20 mg tablet 10 mg PO QDAY methimazole 5 mg tablet 5 mg PO .COMPLEX Rx Instructions: 5 mg orally every day except monday and monday; mirtazapine 15 mg tablet 15 mg PO .qhs PRN (Reason: insomnia) losartan-hydrochlorothiazide 100-12.5 mg tablet 1 tab PO DAILY levofloxacin 750 mg Tablet 750 mg PO QD 5 Days Qty: 5 0RF ondansetron 4 mg Tablet,Disintegrating 4 mg sublingual Q6H PRN (Reason: nausea and vomiting) Qty: 10 0RF metronidazole 500 mg tablet 500 mg PO Q8H 5 Days Qty: 15 0RF levothyroxine 88 mcg tablet losartan 25 mg tablet metoprolol tartrate 50 mg tablet albuterol sulfate 90 mcg/actuation HFA aerosol inhaler INHALATION potassium chloride [Klor-Con M20] 20 mEq tablet,ER particles/crystals 20 meq PO DAILY hyoscyamine sulfate [Levsin] 0.125 mg tablet 0.125 mg PO Q6H PRN (Reason: abdominal pain) Qty: 12 0RF ondansetron 4 mg tablet,disintegrating 4 mg PO Q6H PRN (Reason: nausea and vomiting) Qty: 12 0RF Print Language: Citizen Of [place] Instructions: Dehydration (DC), Acute Kidney Injury (DC) Additional Instructions: Discharge Plan / AVS: * Hydration: Drink plenty of fluids over the next 24?48 hours to help correct mild dehydration. * Medications: Continue home medications including Eliquis and metoprolol as prescribed. * Follow-Up: Schedule follow-up with primary care provider within 1?2 days for repeat labs (renal function, thyroid function) and further management. Call you PCP tomorrow regarding the thyroid abnormalities * Return to the ED if: * You develop severe shortness of breath, chest pain, rapid or irregular heartbeat, lightheadedness, fainting * You are unable to keep fluids down * You have fever, worsening weakness, confusion, or decreased urine output * Lifestyle: Avoid stimulants, stay well hydrated, and get pacemaker re-check as scheduled. Referrals: SYLWIA CLEMENT [Primary Care Provider, Internal Medicine] - As soon as possible Referral Note: Call tomorrow Discharge Date/Time: 02/04/25 17:21
[2025-02-04 13:04] LABS: Hematocrit 47.6 % (36.0-48.0); Hemoglobin 16.1 g/dL (12.0-16.0); Immature Granulocytes Abs Auto 0.04 10^3/uL (0.00-0.03); Immature Granulocytes Pct Auto 0.3 % (0.0-0.5); Lymphocytes Absolute Auto 2.6 10^3/uL (1.2-3.8); Mean Corpuscular HGB Conc 33.8 g/dL (29.9-35.2); Mean Corpuscular Hemoglobin 29.2 pg (26.7-34.0); Mean Corpuscular Volume 86.2 fL (81.0-99.0); Platelet Count 475 10^3/uL (150-450); Red Blood Count 5.52 10^6/uL (4.20-5.40); White Blood Count 15.3 10^3/uL (4.0-11.0)
[2025-02-04] MEDS: 0.9 % SODIUM CHLORIDE 1,000 ML 1000 ML IV (13:11)
[2025-02-04 13:28] LABS: Alanine Aminotransferase 60 U/L (14-59); Albumin Globulin Ratio 1.2; Albumin Level 5.4 g/dL (3.4-5.0); Alkaline Phosphatase 150 U/L (46-116); Anion Gap 23.7; Aspartate Amino Transferase 27 U/L (15-37); Blood Urea Nitrogen 34.0 mg/dL (7.0-18.0); Calcium 10.2 mg/dL (8.5-10.1); Carbon Dioxide 21.4 mmol/L (21.0-32.0); Chloride 98 mmol/L (98-107); Estimated GFR (African America 44 (>=60 mL/min/1.73m^2); Estimated GFR (Non-African Ame 36 (>=60 mL/min/1.73m^2); Globulin 4.5 g/dL; Glucose 129 mg/dL (74-106); Potassium 4.1 mmol/L (3.5-5.1); Sodium 139 mmol/L (136-145); Thyroid Stimulating Hormone 0.054 uIU/mL (0.358-3.740); Total Protein 9.9 g/dL (6.4-8.2)
[2025-02-04 13:29] LABS: Magnesium 1.9 mg/dL (1.8-2.4)
[2025-02-04 14:13] LABS: Glucose Urine UA NEGATIVE (NEGATIVE)
[2025-02-04 14:30] LABS: Cast Seen? SEEN #/LPF (NONE SEEN); Crystals Seen? None Seen #/HPF (None Seen)
== END 2025-02-04 17:21 | disposition home or self-care (01) ==
PROVIDERS: Physician Assistant; Emergency Provider Emergency Medicine; PCP Family Medicine
DX: E86.0 Dehydration (principal); N17.9 Acute kidney failure, unspecified; I48.91 Unspecified atrial fibrillation; Z79.01 Long term (current) use of anticoagulants; Z79.899 Other long term (current) drug therapy; Z95.0 Presence of cardiac pacemaker; E03.9 Hypothyroidism, unspecified; R94.6 Abnormal results of thyroid function studies
CPT/HCPCS: 36415; 71046; 80053; 81001; 83735; 84439; 84443; 84484; 85025; 85378; 93005; 96360; 99285